=== PATIENT | male | born 1950 | race Caucasian/White ===

== ENCOUNTER 2023-06-09 14:41 | Outpatient (OUT) | payer OTHER, SELFPAY ==
--- NOTE | 2023-06-09 14:50 | XR_ITS ---
The [address] [address] Patient Name: XIMENA CAMARILLO MRN: [id number] date: 1950 Sex: M Assigned Patient Location: [facility] Current Patient Location: Accession/Order Number: [id number] Exam Date: 06/09/2023 15:00 Report Date: 06/10/2023 07:43 At the request of: RAEGAN MARCH Procedure: XR chest 2V EXAM: X-ray HISTORY: . Cough . COMPARISON: None. TECHNIQUE: Frontal and lateral chest FINDINGS: Heart and vascularity are unremarkable. There is hyperexpansion of lungs and flattening in hemidiaphragms indicating COPD. Lungs are free of focal infiltrates. No acute bony abnormality is appreciated. XR/XR chest 2V IMPRESSION: 1. Findings consistent with COPD. 2. No acute heart or lung disease identified. Electronically authenticated by: KHADIJAH DELUCA Date: 06/10/2023 07:43
== END 2023-06-09 14:42 | disposition home or self-care (01) ==
LOC: RAD 14:44
PROVIDERS: PCP Family Medicine; Visit Provider Family Medicine
DX: R05.9 Cough, unspecified (principal); J44.9 Chronic obstructive pulmonary disease, unspecified
CPT/HCPCS: 71046

== ENCOUNTER 2023-08-01 07:39 | Emergency (ER) | payer MEDICARE, SELFPAY ==
--- NOTE | 2023-08-01 07:49 | ED_ITS ---
HPI - General Adult General Chief complaint: Urogenital-Male Stated complaint: URINARY INFECTION Time Seen by Provider: 08/01/23 07:44 History of Present Illness HPI narrative: Patient is a 72-year-old male who is presenting to the ER with chief complaint of probable urinary tract infection. Yesterday patient felt chilled at home, and stated it was not cold. Patient has no abdominal pain. Patient does not have any suprapubic pressure. Patient states he has been straight cathing himself for years, he typically does it twice a day. Patient believes that he has a urinary tract infection, he has been having blood clots yesterday and today. Patient states that he can usually dribble or have some urine output, but typically straight caths himself twice a day. Patient did straight cath himself this morning, noted blood clots. Patient is in the ER today because he would like an antibiotic. Patient's urologist is Dr. Fleming, he also had some type of surgical procedure years ago at the [facility] and they guaranteed him that he would not have to straight cath himself in the future, and unfortunately that has not worked. Patient has no fever that he knew of, he did have chills yesterday. Patient has no headache, chest pain, shortness of breath, no nausea, vomiting, or any other acute complaints. All systems are negative except as noted/marked. All systems reviewed and otherwise negative. Nurses note and vital signs reviewed and patient is not hypoxic. General: The patient appears well and in no apparent distress. Patient is resting comfortably on cart. Patient is not toxic, lethargic, or listless when I walked into the room, patient sitting at the side of the bed,. Is holding a urinal trying to give a urine sample. Skin: Warm, dry, no pallor noted. There is no rash noted. No petechiae, purpura. Head: Normocephalic, atraumatic Eye: Normal conjunctiva, no drainage, EOMI. PERRL Ears, Nose, Mouth, and Throat: oral mucosa is moist. Nares patent. Mouth without vesicles. Cardiovascular: Regular Rate and Rhythm, no murmur, gallop, rub Respiratory: Patient is in no distress, no accessory muscle use, lungs are clear to auscultation, no wheezing, rales or rhonchi Back: non-tender, no CVA tenderness bilaterally to percussion. No CT LS midline pain GI: obese, no tenderness to palpation, no masses appreciated. No rebound, guarding, or rigidity noted. No distention. No flank pain bilateral, no CVA tenderness bilateral, no suprapubic tenderness to palpation. Musculoskeletal: Patient has full range of motion of all of the extremities, no motor, sensory, or focal neurological deficits Neurological: A&O x4, normal speech Psychiatric: Cooperative Related Data Home Medications Medication Instructions Recorded Confirmed atenolol 50 mg tablet 50 mg PO BID 08/01/23 08/01/23 atorvastatin 40 mg tablet 40 mg PO DAILY 08/01/23 08/01/23 famotidine 20 mg tablet 20 mg PO BID PRN GERD 08/01/23 08/01/23 furosemide 20 mg tablet 20 mg PO Q12H 08/01/23 08/01/23 imipramine HCl 50 mg tablet 50 mg PO BID 08/01/23 08/01/23 losartan 100 mg tablet (Cozaar) 100 mg PO DAILY 08/01/23 08/01/23 ropinirole 0.5 mg tablet 0.5 mg PO BID 08/01/23 08/01/23 tamsulosin 0.4 mg capsule (Flomax) 0.4 mg PO DAILY 08/01/23 08/01/23 terazosin 2 mg capsule 2 mg PO DAILY 08/01/23 08/01/23 tiotropium 2.5 mcg-olodaterol 2.5 2 inh inhalation DAILY 08/01/23 08/01/23 mcg/actuation mist for inhalation (Stiolto Respimat) Previous Rx's Medication Instructions Recorded ciprofloxacin HCl 500 mg tablet 500 mg PO Q12H 10 days #20 tabs 08/01/23 Allergies Allergy/AdvReac Type Severity Reaction Status Date / Time Iodinated Contrast Media AdvReac Mild Verified 08/01/23 07:47 niacin AdvReac Mild Verified 08/01/23 07:53 shellfish derived AdvReac Mild Verified 08/01/23 07:47 PFSH PFSH Social History Smoking status: Former smoker Exam Constitutional Vital Signs, click to edit/add: Last Vital Signs Temp 100.4 F 08/01/23 07:51 Pulse 90 08/01/23 07:51 Resp 20 08/01/23 07:51 BP 128/68 08/01/23 07:51 Pulse Ox 94 L 08/01/23 07:51 O2 Del Method Room Air 08/01/23 07:51 Course Vital Signs Vital signs: Vital Signs Temperature 100.4 F 08/01/23 07:51 Pulse Rate 90 08/01/23 07:51 Respiratory Rate 20 08/01/23 07:51 Blood Pressure 128/68 08/01/23 07:51 Pulse Oximetry 94 L 08/01/23 07:51 Oxygen Delivery Method Room Air 08/01/23 07:51 Temperature 100.4 F 08/01/23 07:51 Pulse Rate 90 08/01/23 07:51 Respiratory Rate 20 08/01/23 07:51 Blood Pressure 128/68 08/01/23 07:51 Pulse Oximetry 94 L 08/01/23 07:51 Oxygen Delivery Method Room Air 08/01/23 07:51 Medical Decision Making MDM Narrative Medical decision making narrative: Patient was able to urinate approximately 350 cc. Patient stated he has had clots yesterday and today, there is no blood clots in his urine sample today. Patient had a bladder scan after he urinated, no urine was noted on bladder scan. Patient has significant urinary tract infection, nitrates, leuk esterase, bacteria, blood. Patient is complicated UTI. Patient will be given IM injection of Rocephin secondary to complicated UTI, patient will also placed on Cipro twice a day for 10 days. Patient already has a fever, chills, giving Rocephin and Cipro hoping to prevent sepsis or any other complicated or significant infection. Patient understands the importance of significantly hydrating. No questions at discharge. Patient and agree with the plan. Lab Data Lab results reviewed: Yes I reviewed the patient's lab results Labs: Lab Results 08/01/23 Range/Units 08:10 Urine Color Lt. yellow (YELLOW) Urine Clarity Clear (CLEAR) Urine pH 5.5 (5.0-9.0) Ur Specific [place] <=1.005 A (1.005-1.025) Urine Protein 30 A (NEG/TRACE) mg/dL Urine Glucose (UA) Negative (NEGATIVE) mg/dL Urine Ketones Negative (NEGATIVE) mg/dL Urine Occult Blood Small A (NEGATIVE) Urine Nitrite Positive A (NEGATIVE) Urine Bilirubin Negative (NEGATIVE) Urine Urobilinogen 1.0 (0.2-1.0) EU/dL Ur Leukocyte Esterase Large A (NEGATIVE) Urine RBC 2-5 A (0-2) #/HPF Urine WBC >100 A (NONE SEEN) #/HPF Ur Squamous Epith Cells Few A (NONE/RARE) #/LPF Urine Bacteria Large A (NONE SEEN) #/HPF Urine Mucus None seen (NONE SEEN) Ur Culture Indicated? Already ordered Discharge Plan Discharge Chief Complaint: Urogenital-Male Clinical Impression: Complicated UTI (urinary tract infection) Patient Disposition: Home, Self-Care Time of Disposition Decision: 08:57 Condition: Fair Prescriptions / Home Meds: New ciprofloxacin HCl 500 mg tablet 500 mg PO Q12H 10 Days Qty: 20 0RF No Action famotidine 20 mg tablet 20 mg PO BID PRN (Reason: GERD) furosemide 20 mg tablet 20 mg PO Q12H atorvastatin 40 mg tablet 40 mg PO DAILY imipramine HCl 50 mg tablet 50 mg PO BID atenolol 50 mg tablet 50 mg PO BID losartan [Cozaar] 100 mg tablet 100 mg PO DAILY terazosin 2 mg capsule 2 mg PO DAILY tamsulosin [Flomax] 0.4 mg capsule 0.4 mg PO DAILY ropinirole 0.5 mg tablet 0.5 mg PO BID Stiolto Respimat 2.5-2.5 mcg/actuation mist 2 inh inhalation DAILY Instructions: Urinary Tract Infection in Men (ED) Additional Instructions: Increase fluids at home, take your first dose of antibiotic this morning when he had a prescription filled. Follow-up with Dr. Fleming for any other additional complications. Use Tylenol as needed for fever. Stand Alone Forms: Portal Instructions Referrals: RAEGAN MARCH [Primary Care Provider] - 1 week
--- OUTSIDE RECORDS SUMMARY | 2023-08-01 07:50 | XMS_ITS | CCD ---
Author Name Unknown Address [address] [place] [address] Organization [facility] Care Team Providers Care Dredge Pipe Operator Name Role Phone ORGEL, ANA PAULA K Unavailable Unavailable ORGEL, ANA PAULA K Unavailable Unavailable AMBKADE MANUELA R Unavailable Unavailable AMBKADE MANUELA R Unavailable Unavailable PHYSICIAN, DEFAULT Unavailable Unavailable PHYSICIAN, DEFAULT Unavailable Unavailable PHYSICIAN, DEFAULT Unavailable Unavailable PHYSICIAN, DEFAULT Unavailable Unavailable Nguyen Garber Attending Provider Catracho Jiménez Primary Care Provider Catracho Jiménez MD Primary Care Provider Jeremy Kelley MD Unavailable CATRACHO JIMÉNEZ Primary Care Physician TRAE ., DR CATRACHO Garcia Admitting Unavailable JIMÉNEZ ., DR CATRACHO Garcia Attending Unavailable JIMÉNEZ ., DR CATRACHO Garcia Primary Care Unavailable JIMÉNEZ ., DR CATRACHO Garcia Consulting Unavailable ROSS, RAEGAN JOSE RAUL Admitting Unavailable ROSS RAEGAN JOSE RAUL Attending Unavailable ROSS, RAEGAN JOSE RAUL Primary Care Unavailable ROSS, RAEGAN JOSE RAUL Consulting Unavailable SAMSA ., KATJA Admitting Unavailable SAMSA ., KATJA Attending Unavailable LYN, DR KHADIJAH Mejia Consulting Unavailable ROSS, RAEGAN JOSE RAUL Primary Care Unavailable SAMSA ., KATJA Consulting Unavailable JIMÉNEZ ., DR CATRACHO Garcia Primary Care Unavailable HOMER, DR ZHEN Avery Admitting Unavailable HOMER, DR ZHEN Avery Attending Unavailable HOMER, DR ZHEN Avery Consulting Unavailable SANGEETHA VEGA Consulting Unavailable JIMÉNEZ ., DR CATRACHO Garcia Admitting Unavailable JIMÉNEZ ., DR CATRACHO Garcia Attending Unavailable JIMÉNEZ ., DR CATRACHO Garcia Primary Care Unavailable JIMÉNEZ ., DR CATRACHO Garcia Consulting Unavailable JIMÉNEZ ., DR CATRACHO Garcia Admitting Unavailable JIMÉNEZ ., DR CATRACHO Garcia Attending Unavailable JIMÉNEZ ., DR CATRACHO Garcia Primary Care Unavailable JIMÉNEZ ., DR CATRACHO Garcia Consulting Raegan Tran Primary Care Physician [phone] Catracho Jiménez MD Primary Care Provider Khadijah Grove Unavailable Khadijah Grove Attending Unavailable Khadijah Grove Admitting Unavailable Raegan March Primary Care Unavailable MD Raegan March Attending Unavailable MD Raegan March Attending Unavailable MD Raegan March Attending Unavailable MD Raegan March Attending Unavailable MD Raegan March Admitting Unavailable MD Raegan March Attending Unavailable MD Raegan March Referring Unavailable MD Raegan March Admitting Unavailable MD Raegan March Attending Unavailable KELLEY Jeremy R Admitting Unavailable KELLEYPennyJeremy R Attending Unavailable MD Raegan March Admitting Unavailable MD Raegan March Attending Unavailable Aviva Bang Admitting Unavailable Aviva Bang Attending Unavailable MD Raegan March Attending Unavailable MD Raegan March Attending Unavailable MD Raegan March Attending Unavailable KELLEY, Jeremy R Attending Unavailable KELLEY, Jeremy R Attending Unavailable KELLEY, Jeremy R Attending Unavailable KELLEY, Jeremy R Attending Unavailable KELLEY, Jeremy R Attending Unavailable Sebastián, AURORA oPnce Attending Unavailable MD Raegan March Attending Unavailable MD Raegan March Attending Unavailable MD Raegan March Attending Unavailable MD Raegan March Attending Unavailable AURORA Lowery Attending Unavailable MD Raegan March Admitting Unavailable MD Raegan March Attending Unavailable MD Raegan March Admitting Unavailable MD Raegan March Attending Unavailable ARNAUD BLACK Admitting Unavailable ARNAUD BLACK Attending Unavailable MD Raegan March Admitting Unavailable MD Raegan March Attending Unavailable MD Raegan March Admitting Unavailable MD Raegan March Attending Unavailable MD Raegan March Attending Unavailable MD Raegan March Attending Unavailable Allergies Allergy Classification Reported Allergen(s) Allergy Type Date of Onset Reaction(s) Facility Niacin (1 source) Niacin Drug Allergy 1 Swelling of Lip/Tongue/Thro at [facility] Shellfish (1 source) Shellfish Food Allergy 1 Swelling of Lip/Tongue/Thro at [facility] Unclassified (14 sources) Iodinated Contrast Media; Translations: [Iodinated Contrast Media] Allergy to substance 6 Hives [facility] (12 sources) Glucosamine Drug Allergy 8 Anaphylaxis, Unknown [facility] (13 sources) Niacin Drug Allergy 6 Hives, Rash [facility] (18 sources) Shellfish; Translations: [shellfish] Drug Allergy 6 Hives, Unknown (qualifier value) [facility] (11 sources) Contrast media; Translations: [contrast media (iodine-based)] Drug allergy Unknown (qualifier value) [facility] (11 sources) Inositol; Translations: [inositol] Drug Allergy Unknown (qualifier value) [facility] (1 source) Iodine (And Iodine Containting Drugs) Drug allergy (disorder) 6 [facility] (1 source) Niacin Drug Allergy 4 [facility] (7 sources) Shellfish; Translations: [shellfish] Drug allergy (disorder) 4 Unknown (qualifier value) [facility] (1 source) Sulfonamides (Antibiotic) Drug allergy (disorder) [facility] (1 source) Niacin Drug Allergy 1 [facility] (1 source) Shellfish Drug allergy (disorder) 1 [facility] Medications Current Medications Medication Drug Class(es) Dates Sig (Normalized) Sig (Original) albuterol 0.83 mg/ml inhalation solution (12 sources) beta2-Adrenergic Agonist Start: 09-12-2022 take 2.5 mg by inhalation every four hours albuterol 0.083% Inh Mary 3 mL 2.5 mg, 3 mL, NEB, q4hr, 120 EA, Refill(s) 0, [facility], 193, cm, 08/29/22 13:11:00 EST, Height/Length Dosing, 128.8, kg, 08/29/22 13:11:00 EST, Weight Dosing Start Date: 09/12/22 Status: Ordered Start: 08-26-2022 albuterol 0.08 3% Inh Mary 3 mL Refill(s) 0 Start Date: 08/26/22 Status: Ordered Start: 12-06-2020 take 2.5 mg by inhal ation once daily Albuterol Sulfate Active 2.5 MG INHALATION Daily December 06, 2020 11:36am Start: 12-06-2020 take 90 ug by inhala tion once daily Albuterol Sulfate Active 90 MCG INHALATION Daily December 06, 2020 11:36am Albuterol (Eqv-ProAir HFA) 90 mcg/inh inhalation aerosol (10 sources) Start: 09-12-2022 take 2 puff(s) by inhalation every six hours Albuterol (Eqv-ProAir HFA) 90 mcg/inh inhalation aerosol 2 puff(s), Inhalation, q6hr, 18 gm, Refill(s) 3, [facility], 193, cm, 08/29/22 13:11:00 EST, Height/Length Dosing, 128.8, kg, 08/29/22 13:11:00 EST, Weight Dosing Start Date: 09/12/22 Status: Ordered Start: 08-26-2022 Albuterol (Eqv -ProAir HFA) 90 mcg/inh inhalation aerosol Refill(s) 0 Start Date: 08/26/22 Status: Ordered aspirin 81 mg delayed release oral tablet (17 sources) Platelet Aggregation Inhibitor, Nonsteroidal Anti-inflammatory Drug Start: 08-26-2022 aspirin 81 mg Ora l EC Tab Refills(s) 0 Start Date: 08/26/22 Status: Ordered Start: 12-06-2020 take 81 mg by mouth once daily at bedtime Aspirin Active 81 MG PO Daily at bedtime December 06, 2020 11:36am aspirin 81 mg ca p Take 81 mg by mouth. 0 Active Comment on above: Take 81 mg by mouth. atenolol 50 mg oral tablet (20 sources) beta-Adrenergic Chapis Start: 12-06-2020 take 1 tablet by mouth twice daily atenolol 50 mg Tab 50 mg = 1 tab(s), Oral, BID, # 180 tab(s), Refills(s) 3, Pharmacy: [facility], 193, cm, 08/29/22 13:11:00 EST, Height/Length Dosing, 128.8, kg, 08/29/22 13:11:00 EST, Weight Dosing Start Date: 09/12/22 Status: Ordered Start: 08-31-2019 take 1 tablet by tomy th once daily atenolol 50 mg Tab 50 mg = 1 tab(s), Oral, Daily, # 30 tab(s), Refills(s) 0 Start Date: 08/31/19 Status: Ordered Start: 10-23-2018 End: 10-23-2021 ATENOLOL ORAL 5 mg. 0 201810/23/2021 Discontinued (Changing Therapy/Dosage Form) Start: 10-23-2018 ATENOLOL ORAL 5 mg. 0 10/23/2018 Active Comment on above: 5 mg. Take 50 mg by mouth once daily. atorvastatin 40 mg oral tablet (20 sources) HMG-CoA Reductase Inhibitor Start: 08-31-19 take 1 tablet by mouth once daily atorvastatin 40 mg Tab 40 mg = 1 tab(s), Oral, Daily, # 90 tab(s), Refills(s) 3, Pharmacy: [facility], 193, cm, 08/29/22 13:11:00 EST, Height/Length Dosing, 128.8, kg, 08/29/22 13:11:00 EST, Weight Dosing Start Date: 09/12/22 Status: Ordered Comment on above: once daily. azithromycin 250 mg Tab 5-day Dose Pack (Z-Raimundo) (1 source) Start: 06-09-20 End: 06-14-20 azithromycin 250 mg Tab 5-day Dose Pack (Z-Raimundo) = 1 packet(s), Oral, As Directed, as directed on package labeling, X 5 day(s), # 6 tab(s), Refills(s) 0, Pharmacy: [facility]/pharmacy #[id number], 188, cm, 06/09/23 13:56:00 EST, Height/Length Dosing, 127.9, kg, 03/17/23 11:18:00 EDT, Weight Dosing Start Date: 06/09/23 Stop Date: 06/14/23 Status: Ordered benzonatate 200 mg oral capsule (1 source) Non-narcotic Antitussive Start: 06-09-20 End: 06-16-20 take 1 capsule by mouth three times daily benzonatate 200 mg oral capsule 200 mg = 1 cap(s), Oral, TID, X 7 day(s), # 21 cap(s), Refills(s) 0, Pharmacy: [facility]/pharmacy #[id number], 188, cm, 06/09/23 13:56:00 EST, Height/Length Dosing, 127.9, kg, 03/17/23 11:18:00 EDT, Weight Dosing Start Date: 06/09/23 Stop Date: 06/16/23 Status: Ordered cephalexin 500 mg oral capsule (10 sources) Cephalosporin Antibacterial Start: 06-25-19 take 1 capsule by mouth every twelve hours Keflex 500 mg Cap 500 mg = 1 cap(s), Oral, q12hr, # 20 cap(s), Refills(s) 0, [id number] 188, cm, 06/09/23 13:56:00 EST, Height/Length Dosing, 127.9, kg, 03/17/23 11:18:00 EDT, Weight Dosing Start Date: 06/25/23 Status: Ordered Start: 04-19-2021 End: 10-23-2021 take 1 capsule by mouth once daily cephALEXin (KEFLEX) 250 mg capsule Take 1 capsule by mouth once daily. Start these after 1st prescription completed 90 capsule 1 04/19/2021 10/23/2021 Discontinued Start: 04-19-2021 End: 10-23-2021 take 1 capsule by mouth three times daily cephALEXin (KEFLEX) 500 mg capsule Take 1 capsule by mouth three times daily. Take these pills first 21 capsule 0 04/19/2021 10/23/2021 Discontinued Comment on above: Take 1 capsule by [facility] three times daily. Take these pills first Take 1 capsule by [facility] once daily. Start these after 1st prescription completed cholecalciferol 0.025 mg oral tablet (1 source) Vitamin D Start : 12-06 take 1 tablet by mouth once daily in the morning Cholecalciferol (Vitamin D3) (Vitamin D3) 25 mcg (1,000 unit) Tablet Active 50 MCG PO Every morning December 06, 2020 11:36am docusate sodium 100 mg oral capsule (3 sources) Start : 12-21 End: 01-20 take 1 capsule by mouth twice daily docusate sodium (COLACE) 100 mg capsule Take 1 capsule by mouth twice daily. 60 capsule 0 12/21/2021 01/20/2022 Active Comment on above: Take 1 capsule by mo [facility] twice daily. famotidine 20 mg oral tablet (13 sources) Histamine-2 Receptor Antagonist Start : 04-17 take 1 tablet by mouth twice daily as needed for gastroesophageal reflux disease famotidine 20 mg Tab See Instructions, TAKE 1 TABLET BY MOUTH TWICE A DAY NEEDED FOR GERD SYMPTOMS, # 180 tab(s), Refills(s) 1, Pharmacy: [id number], 188, cm, 03/17/23 11:18:00 EDT, Height/Length Dosing, 127.9, kg, 03/17/23 11:18:00 EDT, Weight Dosing Start Date: 04/17/23 Status: Ordered Start: 03-17-2023 End: 10-23-2021 take 1 tablet by mouth twice daily as needed for gastroesophageal reflux disease Pepcid 20 mg Tab 20 mg = 1 tab(s), Oral, BID, PRN for GERD symptoms, # 60 tab(s), Refills(s) 0, Pharmacy: [facility]/pharmacy #[id number], 188, cm, 03/17/23 11:18:00 EDT, Height/Length Dosing, 127.9, kg, 03/17/23 11:18:00 EDT, Weight Dosing Start Date: 03/17/23 Status: Ordered Start: 08-26-2022 take 1 tablet by mouth once da jag famotidine 20 mg Tab 20 mg = 1 tab(s), Oral, Daily, # 90, Refills(s) 0 Start Date: 08/26/22 Status: Ordered Start: 12-06-2020 take 20 mg by mouth once daily in the morning Famotidine Active 20 MG PO Every morning December 06, 2020 11:36am Comment on above: Take 20 mg by mouth twice daily. Fish Oils (10 sources) Start: 08-26-2022 Fish Oil 1000 mg oral capsule Refills(s) 0 Start Date: 08/26/22 Status: Ordered Flonase 50 MCG/DOSE (1 source) take 1 spray(s) nasal route once daily Flonase 50 MCG/DOSE 1 spray in each nostril Nasally Once a day Active furosemide 20 mg oral tablet (20 sources) Loop Diuretic Start: 01-29-2016 take 1 tablet by mouth twice daily furosemide 20 mg Tab 20 mg = 1 tab(s), Oral, BID, # 180 tab(s), Refills(s) 3, Pharmacy: [facility], 193, cm, 08/29/22 13:11:00 EST, Height/Length Dosing, 128.8, kg, 08/29/22 13:11:00 EST, Weight Dosing Start Date: 09/12/22 Status: Ordered Start: 01-29-2016 furosemide (LA SIX) 20 mg tablet Comment on above: Take by mouth twice daily. glipiZIDE er 2.5 mg 24 hr extended release oral tablet (20 sources) Sulfonylurea Start: take 1 tablet by mouth once daily glipiZIDE 2.5 mg ER Tab 2.5 mg = 1 tab(s), Oral, Daily, # 180 tab(s), Refills(s) 3, Pharmacy: [facility], 188, cm, 06/09/23 13:56:00 EST, Height/Length Dosing, 127.9, kg, 03/17/23 11:18:00 EDT, Weight Dosing Start Date: 06/30/23 Status: Ordered Start: 08-26-2022 take 1 tablet by tomy th once daily glipiZIDE 2.5 mg ER Tab 2.5 mg = 1 tab(s), Oral, Daily, # 180 tab(s), Refills(s) 3, Pharmacy: [facility], 193, cm, 08/29/22 13:11:00 EST, Height/Length Dosing, 128.8, kg, 08/29/22 13:11:00 EST, Weight Dosing Start Date: 09/12/22 Status: Ordered End: 10-23-2021 GLIPIZIDE ORAL Take by mouth . 0 10/23/2021 Discontinued (Duplicate Entry) GLIPIZIDE ORAL T felipa by mouth. 0 Active Comment on above: Take by mouth. Take 2.5 mg by mouth once daily. ibuprofen 200 mg oral tablet (10 sources) Nonsteroidal Anti-inflammatory Drug Start: 08-27-19 ibuprofen 200 mg Tab Refills(s) 0 Start Date: 08/26/22 Status: Ordered imipramine hydrochloride 50 mg oral tablet (20 sources) Tricyclic Antidepressant Start: 04-28-20 23 take 1 tablet by mouth twice daily imipramine 50 mg oral tablet 50 mg = 1 tab(s), Oral, BID, # 180 tab(s), Refills(s) 1, Pharmacy: [facility]/pharmacy #[id number], 188, cm, 03/17/23 11:18:00 EDT, Height/Length Dosing, 127.9, kg, 03/17/23 11:18:00 EDT, Weight Dosing Start Date: 04/28/23 Status: Ordered Start: 08-31-2019 take 1 mg by mouth t hree times daily imipramine 50 mg oral tablet mg tab(s), Oral, TID, Refills(s) 0 Start Date: 08/31/19 Status: Ordered Start: 03-04-2016 take 1 tablet by tomy twice daily imipramine 50 mg oral tablet 50 mg = 1 tab(s), Oral, BID, # 270 tab(s), Refills(s) 3, Pharmacy: [facility], 193, cm, 08/29/22 13:11:00 EST, Height/Length Dosing, 128.8, kg, 08/29/22 13:11:00 EST, Weight Dosing Start Date: 09/12/22 Status: Ordered take 2 tablets by mo [facility] every twenty-four hours Imipramine HCl 50 MG 2 tablets at bedtime Orally Once a day Active Comment on above: Take by mouth twice daily. irbesartan 75 mg oral tablet (11 sources) Angiotensin 2 Receptor Chapis Start: take 1 tablet by mouth once daily irbesartan 75 mg Tab 75 mg = 1 tab(s), Oral, Daily, # 90 tab(s), Refills(s) 3, Pharmacy: [facility], 188, cm, 06/09/23 13:56:00 EST, Height/Length Dosing, 127.9, kg, 03/17/23 11:18:00 EDT, Weight Dosing Start Date: 06/30/23 Status: Ordered Start: 08-26-2022 take 1 tablet by tomy once daily irbesartan 75 mg Tab 75 mg = 1 tab(s), Oral, Daily, # 90 tab(s), Refills(s) 3, Pharmacy: [facility], 193, cm, 08/29/22 13:11:00 EST, Height/Length Dosing, 128.8, kg, 08/29/22 13:11:00 EST, Weight Dosing Start Date: 09/12/22 Status: Ordered losartan potassium 100 mg oral tablet (13 sources) Angiotensin 2 Receptor Chapis Start: 12-06-2020 take 100 mg by mouth once daily Losartan Active 100 MG PO Daily December 06, 2020 11:36am Start: 10-23-2018 losartan (COZA AR) 100 mg tablet 50 mg daily at bedtime. 0 10/23/2018 Active Comment on above: 50 mg. 50 mg daily at bedti me. metFORMIN hydrochloride 500 mg oral tablet (20 sources) Biguanide Start: 4 take 1 tablet by mouth twice daily metformin 500 mg Tab 500 mg = 1 tab(s), Oral, BID, # 180 tab(s), Refills(s) 3, Pharmacy: [facility], 188, cm, 06/09/23 13:56:00 EST, Height/Length Dosing, 127.9, kg, 03/17/23 11:18:00 EDT, Weight Dosing Start Date: 06/30/23 Status: Ordered Start: 08-26-2022 take 1 tablet by tomy th twice daily metformin 500 mg Tab 500 mg = 1 tab(s), Oral, BID, # 180 tab(s), Refills(s) 3, Pharmacy: [facility], 193, cm, 08/29/22 13:11:00 EST, Height/Length Dosing, 128.8, kg, 08/29/22 13:11:00 EST, Weight Dosing Start Date: 09/12/22 Status: Ordered metformin HCl (M ETFORMIN ORAL) Take by mouth. 0 Active Comment on above: Take by mouth. Take 500 mg by mouth twice daily. methylPREDNISolone 4 mg oral tablet (1 source) Corticosteroid Start: 023 End: 023 Medrol Dosepack 4 mg Tab = 1 packet(s), Oral, As Directed, as directed on package labeling, X 6 day(s), # 21 tab(s), Refills(s) 0, Pharmacy: [facility]/pharmacy #[id number], 188, cm, 06/09/23 13:56:00 EST, Height/Length Dosing, 127.9, kg, 03/17/23 11:18:00 EDT, Weight Dosing Start Date: 06/09/23 Stop Date: 06/15/23 Status: Ordered nitroglycerin 0.4 mg sublingual tablet (1 source) Nitrate Vasodilator Start: 021 take 0.4 mg under the tongue once daily Nitroglycerin Active 0.4 MG SUBLINGUAL Daily December 06, 2020 11:36am 60 actuat olodaterol 0.0025 mg/actuat / tiotropium 0.0025 mg/actuat inhalation spray (20 sources) Anticholinergic, beta2-Adrenergic Agonist Start: 023 Stiolto Respimat 2.5 mcg-2.5 mcg inhalation aerosol = 2 puff(s), Inhalation, q24hr, # 4 gm, Refills(s) 3, Pharmacy: [facility], 193, cm, 08/29/22 13:11:00 EST, Height/Length Dosing, 128.8, kg, 08/29/22 13:11:00 EST, Weight Dosing Start Date: 09/12/22 Status: Ordered Start: 02-19-2021 Stiolto Respim at 2.5 mcg-2.5 mcg inhalation aerosol puff(s), Inhalation, q24hr, Refills(s) 0 Start Date: 02/19/21 Status: Ordered Start: 12-06-2020 Tiotropium-Olo daterol (Stiolto Respimat) 2.5-2.5 mcg/actuation mist Active 2 INH INHALATION Every morning December 06, 2020 11:36am Stiolto Respimat 2.5-2.5 MCG/ACT Inhalation for 90 Days Active tiotropium-oloda terol (STIOLTO RESPIMAT) 2.5-2.5 mcg/actuation Inhale 2 Puffs as instructed once daily. 0 Active Comment on above: Inhale 2 Puffs as in structed once daily. [place] 6-Hpn-Zke-Fish Oil (Fish Oil) 1,000 mg (120 mg-180 mg) Capsule (1 source) Start: 1 take 2 capsules by mouth once daily in the morning [place] 3-Unh-Vdz-Fish Oil (Fish Oil) 1,000 mg (120 mg-180 mg) Capsule Active 2 CAP PO Every morning December 06, 2020 11:36am rOPINIRole 0.5 mg oral tablet (20 sources) Nonergot Dopamine Agonist Start: 6 take 1 tablet by mouth twice daily ropinirole 0.5 mg Tab 0.5 mg = 1 tab(s), Oral, BID, # 180 tab(s), Refills(s) 3, Pharmacy: [facility], 193, cm, 08/29/22 13:11:00 EST, Height/Length Dosing, 128.8, kg, 08/29/22 13:11:00 EST, Weight Dosing Start Date: 09/12/22 Status: Ordered Start: 08-29-2015 rOPINIRole (RE QUIP) 0.5 mg tablet Comment on above: Take 0.5 mg by mouth twice daily. spironolactone 25 mg oral tablet (2 sources) Aldosterone Antagonist Start: 12-07-19 21 take 25 mg by mouth once daily Spironolactone Active 25 MG PO Daily December 06, 2020 11:36am take 1 tablet by mouth every twe lve hours tamsulosin hydrochloride 0.4 mg oral capsule (18 sources) alpha-Adrenergic Chapis Start: 09-12-2022 take 1 capsule by mouth once daily tamsulosin 0.4 mg Cap 0.4 mg = 1 cap(s), Oral, Daily, # 90 cap(s), Refills(s) 3, Pharmacy: [facility], 193, cm, 08/29/22 13:11:00 EST, Height/Length Dosing, 128.8, kg, 08/29/22 13:11:00 EST, Weight Dosing Start Date: 09/12/22 Status: Ordered Start: 04-02-2016 End: 12-12-2021 take 1 mg by mouth once daily tamsulosin 0.4 mg Cap mg cap(s), Oral, Daily, Refills(s) 0 Start Date: 02/19/21 Status: Ordered Start: 04-02-2016 tamsulosin ER (FLOMAX) 0.4 mg cp24 Indications: Prostate cancer (HCC) twice daily. 0 04/02/2016 Active Comment on above: twice daily. Take by mouth once d aily. terazosin 2 mg oral capsule (20 sources) alpha-Adrenergic Chapis Start: 03-11-2016 take 1 capsule by mouth once daily at bedtime terazosin 2 mg Cap 2 mg = 1 cap(s), Oral, Once a day (at bedtime), # 90 cap(s), Refills(s) 3, Pharmacy: [facility], 193, cm, 08/29/22 13:11:00 EST, Height/Length Dosing, 128.8, kg, 08/29/22 13:11:00 EST, Weight Dosing Start Date: 09/12/22 Status: Ordered Comment on above: Take by mouth daily at bedtime. Vitamin D3 (1 source) Start: 08-31-2019 Vitamin D3 Refills(s) 0 Start Date: 08/31/19 Status: Ordered Vitamin D3 2000 intl units (10 sources) Start: 08-26-2022 Vitamin D3 2000 intl units Refills(s) 0 Start Date: 08/26/22 Status: Ordered Completed/Discontinued Medications Medication Drug Class(es) Dates Sig (Normalized) Sig (Original) acetaminophen 325 mg oral tablet (3 sources) Start: 12-21-2021 take 2 tablets by mouth every six hours as needed acetaminophen (TYLENOL) 325 mg tablet Take 2 tablets by mouth every 6 hours as needed for pain. 0 12/21/2021 Active Comment on above: Take 2 tablets by mo [facility] every 6 hours as needed for pain. amoxicillin 500 mg / clavulanate 125 mg oral tablet (2 sources) Penicillin-class Antibacterial Start: 10-23-2021 End: 12-12-2021 take 1 tablet by mouth twice daily amoxicillin-clavul anic acid (AUGMENTIN) 500-125 mg per tablet Take 1 tablet by mouth twice daily. 0 10/23/2021 12/12/2021 Discontinued (Course of therapy completed) Comment on above: [facility]. cholecalciferol, vitamin D3, (D3-2000 ORAL) (12 sources) cholecalciferol, vitamin D3, (D3-2000 ORAL) Take by mouth once daily. 0 Active cholecalciferol, vitamin D3, (D3-2000 ORAL) Take by mouth. 0 Active Comment on above: Take by mouth. Take by mouth once d aily. ciprofloxacin 500 mg oral tablet (2 sources) Quinolone Antimicrobial Start: 01-03-20 End: 01-10-20 take 0.5 tablet by mouth twice daily ciprofloxacin HCl (CIPRO) 500 mg tablet Take 0.5 tablets by mouth twice daily for 7 days. 7 tablet 0 01/02/2022 01/09/2022 Start: 10-03-2021 End: 10-03-2021 ciprofloxacin HCl 500 mg tab (s) (CIPRO) Comment on above: Take 0.5 tablets by mouth twice daily for 7 days. diphenhydrAMINE hydrochloride 50 mg oral capsule (3 sources) Histamine-1 Receptor Antagonist Start: End: take 1 capsule by mouth every hour diphenhydrAMINE (BENADRYL) 50 mg capsule Take 1 capsule by mouth as directed for 1 dose. one (1) hour prior to exam. 1 capsule 0 04/06/2021 10/23/2021 Discontinued (Course of therapy completed) Comment on above: Take 1 capsule by [facility] as directed for 1 dose. one (1) hour prior to exam. doxycycline hyclate 100 mg oral capsule (3 sources) Tetracycline-class Drug Start: End: take 1 capsule by mouth twice daily doxycycline hyclate (VIBRAMYCIN) 100 mg capsule Take 1 capsule by mouth twice daily. 10 capsule 0 10/25/2021 12/12/2021 Discontinued (Course of therapy completed) Comment on above: Take 1 capsule by [facility] twice daily. ezetimibe 10 mg oral tablet (4 sources) Dietary Cholesterol Absorption Inhibitor Start: End: ZETIA 10 mg tablet fluticasone propionate 0.05 mg/actuat metered dose nasal spray (12 sources) Corticosteroid take 1 spray(s) nasal route once daily fluticasone (FLONASE) 50 mcg/actuation nasal spray Indications: Prostate cancer (HCC) Use 1 Gilsum in each nostril once daily. 0 Active Comment on above: Use 1 Gilsum in each nostril once daily. lisinopril 20 mg oral tablet (3 sources) Angiotensin Converting Enzyme Inhibitor Start: End: lisinopril (ZESTRIL, PRINIVIL) 20 mg tablet [place]-3 Fatty Acids, FISH OIL, (FISH OIL) 360-1,200 mg cap (12 sources) [place]-3 Fatty Ac ids, FISH OIL, (FISH OIL) 360-1,200 mg cap Take 1 capsule by mouth. 0 Active Comment on above: Take 1 capsule by mo [facility]. oxybutynin chloride 5 mg oral tablet (3 sources) Cholinergic Muscarinic Antagonist Start: End: take 1 tablet by mouth every eight hours as needed oxybutynin (DITROPAN) 5 mg tablet Take 1 tablet by mouth three times daily as needed (Bladder spasms). Do not take within 24 hours of catheter removal 9 tablet 0 12/21/2021 01/09/2022 Discontinued (Course of therapy completed) Comment on above: Take 1 tablet by tomy three times daily as needed (Bladder spasms). Do not take within 24 hours of catheter removal OXYGEN, HOME THERAPY, (9 sources) OXYGEN, HOME THE RAPY, by Nasal Cannula route as directed. at bedtime 2.5 L/min 0 Active Comment on above: by Nasal Cannula rou te as directed. at bedtime 2.5 L/min Problems Active Problems Problem Classification Problem Date Documented Date Episodic/Chronic Abdominal pain (2 sources) Abdominal pain; Translations: [Unspecified abdominal pain] Onset: 12-09-2022 Episodic Cancer of prostate (12 sources) Malignant tumor of prostate; Translations: [Malignant neoplasm of prostate] Onset: 05-23-2016 05-23-2016 Chronic Cancer of prostate (20 sources) History of malignant neoplasm of prostate; Translations: [Personal history of malignant neoplasm of prostate] Onset: 04-30-2021 04-30-2021 Episodic Chronic obstructive pulmonary disease and bronchiectasis (20 sources) Chronic obstructive lung disease; Translations: [Chronic obstructive pulmonary disease, unspecified] Onset: 09-13-2022 Chronic Conditions associated with dizziness or vertigo (2 sources) Benign paroxysmal positional vertigo 08-29-2022 Episodic Diabetes mellitus without complication (20 sources) Diabetes mellitus; Translations: [Type 2 diabetes mellitus without complications] Onset: 10-01-2021 04-30-2021 Chronic Disorders of lipid metabolism (20 sources) Hypercholesterolemia; Translations: [Pure hypercholesterolemia, unspecified] Onset: 01-02-2022 Chronic Esophageal disorders (8 sources) Gastro-esophageal reflux disease without esophagitis; Translations: [Gastroesophageal reflux disease] Onset: 01-02-2022 03-17-2023 Chronic Essential hypertension (20 sources) Hypertensive disorder; Translations: [Essential (primary) hypertension] Onset: 01-02-2022 Chronic Genitourinary symptoms and ill-defined conditions (10 sources) Urinary catheter in situ 08-26-2022 Chronic Genitourinary symptoms and ill-defined conditions (20 sources) Retention of urine; Translations: [Retention of urine, unspecified] Onset: 04-30-2021 Episodic Hyperplasia of prostate (19 sources) Benign prostatic hypertrophy with outflow obstruction; Translations: [Benign prostatic hyperplasia with lower urinary tract symptoms] Onset: 01-02-2022 Chronic Inflammatory conditions of male genital organs (12 sources) Chronic prostatitis; Translations: [Chronic prostatitis] Onset: 12-09-2022 09-06-2019 Chronic Mood disorders (1 source) Major depressive disorder, single episode, unspecified; Translations: [AMBER DEPRESS D/O SINGLE EPIS UNS] Onset: 01-02-2022 Chronic Osteoarthritis (10 sources) Arthritis 08-31-2019 Chronic Other diseases of kidney and ureters (20 sources) Renal mass; Translations: [Other specified disorders of kidney and ureter] Onset: 03-23-2021 03-23-2021 Chronic Other diseases of kidney and ureters (1 source) Disorder of kidney and/or ureter; Translations: [Other specified disorders of kidney and ureter] 04-13-2021 Chronic Other diseases of veins and lymphatics (10 sources) Varicocele 05-23-2021 Episodic Other hereditary and degenerative nervous system conditions (1 source) Restless legs syndrome; Translations: [RESTLESS LEGS SYNDROME] Onset: 01-02-2022 Chronic Other lower respiratory disease (2 sources) Cough 10-15-2022 Episodic Other lower respiratory disease (2 sources) Dyspnea 10-15-2022 Episodic Other lower respiratory disease (1 source) Snoring Episodic Other male genital disorders (10 sources) Impotence 09-06-2019 Chronic Other male genital disorders (10 sources) Swelling of scrotum 05-23-2021 Episodic Other nutritional; endocrine; and metabolic disorders (11 sources) Obese class I; Translations: [Obesity, unspecified] Chronic Other nutritional; endocrine; and metabolic disorders (4 sources) Body mass index 30+ - obesity; Translations: [Body mass index (BMI) 37.0-37.9, adult] 08-26-2022 Chronic Other nutritional; endocrine; and metabolic disorders (1 source) Body mass index (BMI) 37.0-37.9, adult Chronic Other nutritional; endocrine; and metabolic disorders (1 source) Obesity; Translations: [Other obesity due to excess calories] Onset: 06-09-2023 Chronic Other nutritional; endocrine; and metabolic disorders (1 source) Obese class II; Translations: [Body mass index (BMI) 36.0-36.9, adult] Onset: 06-09-2023 Chronic Other screening for suspected conditions (not mental disorders or infectious disease) (2 sources) Patient encounter status; Translations: [Encounter for screening for other disorder] Onset: 08-27-2022 Episodic Other upper respiratory infections (5 sources) Acute upper respiratory infection 06-09-2023 Episodic Residual codes; unclassified (1 source) Sleep apnea; Translations: [Sleep apnea, unspecified] Chronic Residual codes; unclassified (1 source) Obstructive sleep apnea syndrome; Translations: [Obstructive sleep apnea (adult) (pediatric)] Chronic Residual codes; unclassified (1 source) Hypoxia; Translations: [Idiopathic sleep related nonobstructive alveolar hypoventilation] Chronic Residual codes; unclassified (1 source) Idiopathic sleep related nonobstructive alveolar hypoventilation Chronic Residual codes; unclassified (2 sources) Sleep apnea, unspecified; Translations: [Sleep apnea, unspecified] Onset: 05-06-2023 Chronic Residual codes; unclassified (11 sources) Swelling; Translations: [Edema, unspecified] Episodic Respiratory failure; insufficiency; arrest (adult) (11 sources) Dependence on supplemental oxygen; Translations: [Dependence on supplemental oxygen] Chronic Screening and history of mental health and substance abuse codes (20 sources) Ex-smoker; Translations: [Personal history of nicotine dependence] Onset: 08-05-2022 Episodic Spondylosis; intervertebral disc disorders; other back problems (20 sources) Chronic back pain ; Translations: [Dorsalgia, unspecified] Onset: 04-30-2021 04-30-2021 Episodic Unclassified (1 source) MACULAR HOLE LEFT E YE / MACULAR HOLE LEFT E YE() Onset: 10-16-2017 Unclassified (10 sources) Non-smoker 08-26-2022 Unclassified (3 sources) CHRN KIDNEY DISEASE STG 3 UNSP; Translations: [CHRN KIDNEY DISEASE STG 3 UNSP] Onset: 01-22-2022 Unclassified (1 source) CONTACT W/AND (SUSP) EXPOS COVID-19; Translations: [CONTACT W/AND (SUSP) EXPOS COVID-19] Onset: 01-02-2022 Urinary tract infections (20 sources) Recurrent urinary tract infection; Translations: [Urinary tract infection, site not specified] Onset: 04-30-2021 04-30-2021 Episodic Past or Other Problems Problem Classification Problem Date Documented Date Episodic/Chronic Fever of unknown origin (1 source) Fever, unspecified; Translations: [FEVER UNSPECIFIED] Onset: 01-02-2022 Episodic Other aftercare (1 source) Other intermediate manager (current) drug therapy; Translations: [OTH AMBULATORY NURSE CURRENT DRUG THERAPY] Onset: 01-02-2022 Episodic Residual codes; unclassified (1 source) Other specified postprocedural states; Translations: [OTH SPECIFIED POSTPROCEDURAL STATES] Onset: 01-02-2022 Episodic Unclassified (1 source) MACULAR HOLE LEFT E YE; Translations: [MACULAR HOLE LEFT E YE] Onset: 10-16-2017 Unclassified (1 source) CHRN KIDNEY DISEASE STG 3 UNSP; Translations: [CHRN KIDNEY DISEASE STG 3 UNSP] Onset: 01-16-2022 Results Test Name Value Interpretation Reference Range Facil ity C Urineon 07-12-2023 Bacteria identified Cx Nom (U) Microbiology PROCEDURE: Urine Culture [R1] SOURCE: U CleanCatch BODY SITE: COLLECTED DATE/TIME: 07/10/2023 12:36 EST RECEIVED DATE/TIME: 07/10/2023 17:58 EST START DATE/TIME: 07/10/2023 17:58 EST FREE TEXT SOURCE: ARNAUD BLACK PA-C, PA-C, ARNAUD Garcia FINAL REPORTS Final Report [] Verified Date/Time: 07/12/2023 10:25 EST >100,000 cfu/ml Streptococcus agalactiae (Group B) Presumptive isolated. Penicillin is the drug of choice for Beta Hemolytic Streptococci Isolates. Routine susceptibility testing on Beta Hemolytic Streptococcus isolates is no longer performed. Susceptibilities will continue to be performed on Isolates from sterile body fluids and serious wound infections. 1,000 cfu/ml Mixed skin contaminants Performing Locations R1: This test was performed at: [facility], [address] [place] [address], [id number] , , Normal [facility] Comment on above: Performed By: #### 1 [id number] #### [facility] [address] [place] [id number] Ambulatory Visit Summaryon 0 07-10-2023 Ambulatory Visit Summary MILAN CAMARILLO :1950 Visit Date:07/10/2023 Ambulatory Visit Instructions Your Care Team Attending Physician - ALLIE CHOPRA, Jeremy Avery Primary Care Physician - Erasmo CHOPRA, Raegan Adler This Is Your Medications List albuterol (Albuterol (Eqv-ProAir HFA) 90 mcg/inh inhalation aerosol) albuterol (albuterol 0.083% Inh Mary 3 mL) aspirin (aspirin 81 mg Oral EC Tab) atenolol (atenolol 50 mg Tab) atorvastatin (atorvastatin 40 mg Tab) cephalexin (Keflex 500 mg Cap) cholecalciferol (Vitamin D3 2000 intl units) famotidine (famotidine 20 mg Tab) furosemide (furosemide 20 mg Tab) glipiZIDE (glipiZIDE 2.5 mg ER Tab) ibuprofen (ibuprofen 200 mg Tab) imipramine (imipramine 50 mg oral tablet) irbesartan (irbesartan 75 mg Tab) metformin (metformin 500 mg Tab) olodaterol-tiotropium (Stiolto Respimat 2.5 mcg-2.5 mcg inhalation aerosol) omega-3 polyunsaturated fatty acids (Fish Oil 1000 mg oral capsule) ropinirole (ropinirole 0.5 mg Tab) tamsulosin (tamsulosin 0.4 mg Cap) terazosin (terazosin 2 mg Cap) Procedures Performed TURP - Transurethral resection of prostate (12/21/2021), Colonoscopy (01/10/2021), EGD - Esophagogastroduodenos copy (01/10/2021), Cystourethroscopy with dilation of urethral stricture (05/07/2017), Brachytherapy (09/19/2016), TURP - Transurethral resection of prostate (04/11/2016), Cystoscopy (04/02/2016), Transrectal biopsy of prostate using ultrasound (US) guidance (07/04/2015), Appendectomy, External beam radiotherapy, Procedure on back. What to do next Scheduled Follow-Up Appointments Friday 9:15 AM EDT With: ALLIE CHOPRA, Jeremy Avery Where: [facility] [address] \.br\ Medications\.br\ What How Much When Instructions\.br\ Unchanged albuterol (Albuterol (Eqv-ProAir HFA) 90 mcg/ inh inhalation aerosol) 2 Puffs Inhalation Every 6 hours\.br\ Unchanged albuterol (albuterol 0.083% Inh Mary 3 mL) 3 Milliliter Nebulized inhalation (aerosol) Every 4 hours\.br\ Unchanged aspirin (aspirin 81 mg Oral EC Tab)\.br\ Unchanged atenolol (atenolol 50 mg Tab) 1 Tablets By Mouth 2 times a day\.br\ Unchanged atorvastatin (atorvastatin 40 mg Tab) 1 Tablets By Mouth Every day\.br\ Unchanged cephalexin (Keflex 500 mg Cap) 1 Capsules By Mouth Every 12 hours\.br\ Unchanged cholecalciferol (Vitamin D3 2000 intl units)\.br\ Unchanged famotidine (famotidine 20 mg Tab) See instructions TAKE 1 TABLET BY MOUTH TWICE A DAY NEEDED FOR GERD SYMPTOMS \.br\ Unchanged furosemide (furosemide 20 mg Tab) 1 Tablets By Mouth 2 times a day\.br\ Unchanged glipiZIDE (glipiZIDE 2.5 mg ER Tab) 1 Tablets By Mouth Every day\.br\ Unchanged ibuprofen (ibuprofen 200 mg Tab)\.br\ Unchanged imipramine (imipramine 50 mg oral tablet) 1 Tablets By Mouth 2 times a day\.br\ Unchanged irbesartan (irbesartan 75 mg Tab) 1 Tablets By Mouth Every day\.br\ Unchanged metformin (metformin 500 mg Tab) 1 Tablets By Mouth 2 times a day\.br\ Unchanged olodaterol-tiotropi um (Stiolto Respimat 2.5 mcg-2.5 mcg inhalation aerosol) 2 Puffs Inhalation Every 24 hours\.br\ Unchanged omega-3 polyunsaturated fatty acids (Fish Oil 1000 mg oral capsule)\.br\ Unchanged ropinirole (ropinirole 0.5 mg Tab) 1 Tablets By Mouth 2 times a day\.br\ Unchanged tamsulosin (tamsulosin 0.4 mg Cap) 1 Capsules By Mouth Every day\.br\ Unchanged terazosin (terazosin 2 mg Cap) 1 Capsules By Mouth Once a day (at bedtime)\.br\ Allergies\.br\ contrast media (iodine-based) (Unknown)\.br\ inositol (Unknown)\.br\ shellfish (Unknown)\.br\ Problems\.br\ Ongoing - Any problem that you are currently receiving treatment for.\.br\ Acute URI\.br\ Arthritis\.br\ Back pain\.br\ BPH with urinary obstruction\.br\ Chronic prostatitis\.br\ COPD without exacerbation\.br\ Former smoker\.br\ GERD (gastroesophageal reflux disease)\.br\ Gross hematuria\.br\ History of prostate cancer\.br\ History of pyelonephritis\.br\ HLD (hyperlipidemia)\.b r\ Hyperlipidemia\.br\ Hypertension\.br\ Impotence\.br\ Incomplete bladder emptying\.br\ Intermittent self-catheterizatio n of bladder\.br\ Left varicocele\.br\ Non-smoker\.br\ Renal mass\.br\ Scrotal swelling\.br\ Type 2 diabetes mellitus without complication, without long-term current use of insulin\.br\ Patient Survey\.br\ You may receive a survey via text or e-mail asking about your office visit. Please share your experience with us by completing your survey. We appreciate your feedback and thank you for choosing us for your care.\.br\ \.br\ [facility] C Urineon 06-27-2023 Bacteria identified Cx Nom (U) Microbiology PROCEDURE: Urine Culture [R1] SOURCE: U CleanCatch BODY SITE: COLLECTED DATE/TIME: 06/25/2023 11:32 EST RECEIVED DATE/TIME: 06/25/2023 18:44 EST START DATE/TIME: 06/25/2023 18:44 EST FREE TEXT SOURCE: Merritt CHOPRA, Aviva Bang MD, Aviva Gilliam FINAL REPORTS Final Report [] Verified Date/Time: 06/27/2023 09:48 EST >100,000 cfu/ml Streptococcus agalactiae (Group B) Presumptive isolated. Penicillin is the drug of choice for Beta Hemolytic Streptococci Isolates. Routine susceptibility testing on Beta Hemolytic Streptococcus isolates is no longer performed. Susceptibilities will continue to be performed on Isolates from sterile body fluids and serious wound infections. 3,000 cfu/ml Mixed skin contaminants Performing Locations R1: This test was performed at: [facility], [address] [place] [address], [facility]- , , [facility] Comment on above: Performed By: #### [id number] #### [facility] [address] [place] [address] Ambulatory Visit Summaryon 0 06-26-2023 Ambulatory Visit Summary MILAN CAMARILLO :1950 Visit Date:06/25/2023 Ambulatory Visit Instructions Your Diagnosis BPH with urinary obstruction Tests Performed Urnls Dip Stick Auto w/o Microscopy POC 34048 Your Care Team Attending Physician - ALLIE CHOPRA, Jeremy Avery Primary Care Physician - Erasmo CHOPRA, Raegan Adler This Is Your Medications List albuterol (Albuterol (Eqv-ProAir HFA) 90 mcg/inh inhalation aerosol) albuterol (albuterol 0.083% Inh Mary 3 mL) aspirin (aspirin 81 mg Oral EC Tab) atenolol (atenolol 50 mg Tab) atorvastatin (atorvastatin 40 mg Tab) cephalexin (Keflex 500 mg Cap) cholecalciferol (Vitamin D3 2000 intl units) famotidine (famotidine 20 mg Tab) furosemide (furosemide 20 mg Tab) glipiZIDE (glipiZIDE 2.5 mg ER Tab) ibuprofen (ibuprofen 200 mg Tab) imipramine (imipramine 50 mg oral tablet) irbesartan (irbesartan 75 mg Tab) metformin (metformin 500 mg Tab) olodaterol-tiotropium (Stiolto Respimat 2.5 mcg-2.5 mcg inhalation aerosol) omega-3 polyunsaturated fatty acids (Fish Oil 1000 mg oral capsule) ropinirole (ropinirole 0.5 mg Tab) tamsulosin (tamsulosin 0.4 mg Cap) terazosin (terazosin 2 mg Cap) Procedures Performed TURP - Transurethral resection of prostate (12/21/2021), Colonoscopy (01/10/2021), EGD - Esophagogastroduodenos copy (01/10/2021), Cystourethroscopy with dilation of urethral stricture (05/07/2017), Brachytherapy (09/19/2016), TURP - Transurethral resection of prostate (04/11/2016), Cystoscopy (04/02/2016), Transrectal biopsy of prostate using ultrasound (US) guidance (07/04/2015), Appendectomy, External beam radiotherapy, Procedure on back. What to do next Scheduled Follow-Up Appointments Friday 9:15 AM EDT With: ALLIE CHOPRA, Jeremy Avery Where: [facility] [address] \.br\ Medications\.br\ What How Much When Instructions\.br\ Unchanged albuterol (Albuterol (Eqv-ProAir HFA) 90 mcg/ inh inhalation aerosol) 2 Puffs Inhalation Every 6 hours\.br\ Unchanged albuterol (albuterol 0.083% Inh Mary 3 mL) 3 Milliliter Nebulized inhalation (aerosol) Every 4 hours\.br\ Unchanged aspirin (aspirin 81 mg Oral EC Tab)\.br\ Unchanged atenolol (atenolol 50 mg Tab) 1 Tablets By Mouth 2 times a day\.br\ Unchanged atorvastatin (atorvastatin 40 mg Tab) 1 Tablets By Mouth Every day\.br\ Unchanged cephalexin (Keflex 500 mg Cap) 1 Capsules By Mouth Every 12 hours\.br\ Unchanged cholecalciferol (Vitamin D3 2000 intl units)\.br\ Unchanged famotidine (famotidine 20 mg Tab) See instructions TAKE 1 TABLET BY MOUTH TWICE A DAY NEEDED FOR GERD SYMPTOMS \.br\ Unchanged furosemide (furosemide 20 mg Tab) 1 Tablets By Mouth 2 times a day\.br\ Unchanged glipiZIDE (glipiZIDE 2.5 mg ER Tab) 1 Tablets By Mouth Every day\.br\ Unchanged ibuprofen (ibuprofen 200 mg Tab)\.br\ Unchanged imipramine (imipramine 50 mg oral tablet) 1 Tablets By Mouth 2 times a day\.br\ Unchanged irbesartan (irbesartan 75 mg Tab) 1 Tablets By Mouth Every day\.br\ Unchanged metformin (metformin 500 mg Tab) 1 Tablets By Mouth 2 times a day\.br\ Unchanged olodaterol-tiotropi um (Stiolto Respimat 2.5 mcg-2.5 mcg inhalation aerosol) 2 Puffs Inhalation Every 24 hours\.br\ Unchanged omega-3 polyunsaturated fatty acids (Fish Oil 1000 mg oral capsule)\.br\ Unchanged ropinirole (ropinirole 0.5 mg Tab) 1 Tablets By Mouth 2 times a day\.br\ Unchanged tamsulosin (tamsulosin 0.4 mg Cap) 1 Capsules By Mouth Every day\.br\ Unchanged terazosin (terazosin 2 mg Cap) 1 Capsules By Mouth Once a day (at bedtime)\.br\ Test Results\.br\ Urnls Dip Stick Auto w/o Microscopy POC 74814 (06/25/2023)\.br\ Bilirubin Urine Dipstick - Negative\.br\ Blood Urine Dipstick - 3+ Large\.br\ Glucose Urine Dipstick - Negative\.br\ Ketones Urine Dipstick - Negative\.br\ Leukocytes Urine Dipstick - 3+ Large\.br\ Nitrite Urine Dipstick - Negative\.br\ Protein Urine Dipstick - 2+ (100 mg/dl)\.br\ Specific [place] Urine Dipstick - 1.020\.br\ Urine Appearance Urine Dipstick - Clear\.br\ Urine Color Urine Dipstick - Yellow\.br\ Urobilinogen Urine Dipstick - Normal 0.2-1 EU/dl\.br\ pH Urine Dipstick - 6\.br\ Allergies\.br\ contrast media (iodine-based) (Unknown)\.br\ inositol (Unknown)\.br\ shellfish (Unknown)\.br\ Problems\.br\ Ongoing - Any problem that you are currently receiving treatment for.\.br\ Acute URI\.br\ Arthritis\.br\ Back pain\.br\ BPH with urinary obstruction\.br\ Chronic prostatitis\.br\ COPD without exacerbation\.br\ Former smoker\.br\ GERD (gastroesophageal reflux disease)\.br\ Gross hematuria\.br\ History of prostate cancer\.br\ History of pyelonephritis\.br\ HLD (hyperlipidemia)\.b r\ Hyperlipidemia\.br\ Hypertension\.br\ Impotence\.br\ Incomplete bladder emptying\.br\ Intermittent self-catheterizatio n of bladder\.br\ Left varicocele\.br\ Non-smoker\.br\ Renal mass\.br\ Scrotal swelling\.br\ Type 2 diabetes mellitus without complication, without long-term current use of insulin\.br\ Patient Survey\.br\ You may receive a survey via text or e-mail asking about your office visit. Please share your experience with us by completing your survey. We appreciate your feedback and thank you for choosing us for your care.\.br\ \.br\ [facility] URINALYSISOrdered By: Santiago Vasquez on 06-25-2023 Bacteria LM Ql (Urine sed) 1+ /HPF Invalid Interpretation Code Trace/HPF [facility] UA Auto SS Bilirubin Ql (U) Negative (06/25/23 11:32 AM) Normal Negative [facility] UA Auto SS Clarity (U) Clear (06/25/23 11:32 AM) Normal Clear [facility] UA Auto SS Color (U) Yellow (06/25/23 11:32 AM) Normal Yellow [facility] UA Auto SS Epithelial cells.squamous LM.HPF (Urine sed) [#/Area] 5-8 /HPF Normal 0-2/HPF [facility] UA Auto SS Glucose Test strip (U) [Mass/Vol] Negative (06/25/23 11:32 AM) Normal Negative [facility] UA Auto SS Hemoglobin Ql (U) 3+ *ABN* (06/25/23 11:32 AM) Invalid Interpretation Code Negative [facility] UA Auto SS Ketones (U) [Mass/Vol] Negative (06/25/23 11:32 AM) Normal Negative [facility] UA Auto SS Panora.plasma/Lit hium.RBC (Bld) [Mass ratio] 4-20 /HPF Normal 0-3/HPF [facility] UA Auto SS Nitrite Ql (U) Negative (06/25/23 11:32 AM) Normal Negative [facility] [place] pH (U) 6.0 *NA* (06/25/23 11:32 AM) Invalid Interpretation Code 5.0 - 9.0 [facility] [place] Auto SS Protein (U) [Mass/Vol] 1+ *ABN* (06/25/23 11:32 AM) Invalid Interpretation Code Negative [facility] [place] Auto SS Specific gravity (U) [Rel density] <=1.005 *NA* (06/25/23 11:32 AM) Invalid Interpretation Code 1.005 - 1.030 [facility] [place] Auto SS UA Spec Desc Clean Catch (06/25/23 11:32 AM) Normal [facility] [place]A Auto SS Urobilinogen Qn (U) [id number] {Yamileth'U}/dL Normal 0.0 - 1.0 EU/dL [facility] [place] Auto SS WBC Auto Ql (U) 2+ *ABN* (06/25/23 11:32 AM) Invalid Interpretation Code Negative [facility] [place] Auto SS WBC LM.HPF (Urine sed) [#/Area] 16-25 /HPF Invalid Interpretation Code 0-5/HPF [facility] [place] [facility] Auto SS Urinalysison 06-25-2023 Bacteria LM Ql (Urine sed) 1+ /HPF Abnormal Trace [facility] Comment on above: Performed By: #### 1 [id number] #### [facility] [address] [place] [address] Bilirubin Ql (U) Negative Normal Negative [facility] Comment on above: Performed By: #### 1 [id number] #### [facility] [address] [place] [address] Clarity (U) CLEAR Normal Clear [facility] Comment on above: Performed By: #### 1 [id number] #### [facility] [address] [place] [address] Color (U) YELLOW Normal Yellow [facility] Comment on above: Performed By: #### 1 [id number] #### [facility] [address] [place] [address] Epithelial cells.squamous LM.HPF (Urine sed) [#/Area] 5-8 Normal 0-2 [facility] Comment on above: Performed By: #### 1 [id number] #### [facility] [address] [place] [address] Glucose Test strip (U) [Mass/Vol] Negative Normal Negative [facility] Comment on above: Performed By: #### 1 [id number] #### [facility] [address] [place] [address] Hemoglobin Ql (U) 3+ Abnormal Negative [facility] Comment on above: Performed By: #### 1 [id number] #### [facility] [address] [place] [address] Ketones (U) [Mass/Vol] Negative Normal Negative [facility] Comment on above: Performed By: #### 1 [id number] #### [facility] [address] [place] [address] Panora.plasma/Lit hium.RBC (Bld) [Mass ratio] 4-20 Normal 0-3 [facility] Comment on above: Performed By: #### 1 [id number] #### [facility] [address] [place] [address] Nitrite Ql (U) Negative Normal Negative [facility] Comment on above: Performed By: #### 1 [id number] #### [facility] [address] [place] [address] pH (U) 6.0 [pH] Invalid Interpretation Code 5.0-9.0 [facility] Comment on above: Performed By: #### 1 [id number] #### [facility] [address] [place] [address] Protein (U) [Mass/Vol] 1+ Abnormal Negative [facility] Comment on above: Performed By: #### 1 [id number] #### [facility] [address] [place] [address] Specific gravity (U) [Rel density] <=1.005 Invalid Interpretation Code 1.005-1.030 [facility] Comment on above: Performed By: #### 1 [id number] #### [facility] [facility] [address] [place] [address] Type of Urine collection method Clean Catch Normal [facility] Comment on above: Performed By: #### 1 [id number] #### [facility] [address] [place] [address] Urobilinogen Qn (U) 0.2 {Yamileth'U}/dL Normal 0.0-1.0 [facility] Comment on above: Performed By: #### 1 [id number] #### [facility] [address] [place] [address] WBC Auto Ql (U) 2+ Abnormal Negative [facility] Comment on above: Performed By: #### 1 [id number] #### [facility] [address] [place] [address] WBC LM.HPF (Urine sed) [#/Area] 16-25 Abnormal 0-5 [facility] Comment on above: Performed By: #### 1 [id number] #### [facility] [address] [place] [address] RAD - MISCon 06-10-2023 RAD - MISC [id number] 20 [id number] 0TIFF Normal [facility] Ambulatory Visit Summaryon 1 08-10-2022 Ambulatory Visit Summary MILAN CAMARILLO :1950 Visit Date:06/09/2023 Ambulatory Visit Instructions Your Diagnosis Type 2 diabetes mellitus without complication, without long-term current use of insulin Hypertension Acute URI Cough Your Care Team Attending Physician - Raegan March MD Primary Care Physician - Raegan March MD This Is Your Medications List albuterol (Albuterol (Eqv-ProAir HFA) 90 mcg/inh inhalation aerosol) albuterol (albuterol 0.083% Inh Mary 3 mL) aspirin (aspirin 81 mg Oral EC Tab) atenolol (atenolol 50 mg Tab) atorvastatin (atorvastatin 40 mg Tab) azithromycin (azithromycin 250 mg Tab 5-day Dose Pack (Z-Raimundo)) benzonatate (benzonatate 200 mg oral capsule) cholecalciferol (Vitamin D3 2000 intl units) famotidine (famotidine 20 mg Tab) furosemide (furosemide 20 mg Tab) glipiZIDE (glipiZIDE 2.5 mg ER Tab) ibuprofen (ibuprofen 200 mg Tab) imipramine (imipramine 50 mg oral tablet) irbesartan (irbesartan 75 mg Tab) metformin (metformin 500 mg Tab) methylPREDNISolone (Medrol Dosepack 4 mg Tab) olodaterol-tiotropium (Stiolto Respimat 2.5 mcg-2.5 mcg inhalation aerosol) omega-3 polyunsaturated fatty acids (Fish Oil 1000 mg oral capsule) ropinirole (ropinirole 0.5 mg Tab) tamsulosin (tamsulosin 0.4 mg Cap) terazosin (terazosin 2 mg Cap) Procedures Performed TURP - Transurethral resection of prostate (12/21/2021), Colonoscopy (01/10/2021), EGD - Esophagogastroduodenos copy (01/10/2021), Cystourethroscopy with dilation of urethral stricture (05/07/2017), Brachytherapy (09/19/2016), TURP - Transurethral resection of prostate (04/11/2016), Cystoscopy (04/02/2016), Transrectal biopsy of prostate using ultrasound (US) guidance (07/04/2015), Appendectomy, External beam radiotherapy, Procedure on back. Discharge Vitals Temperature (Temporal Artery) 36.1 ?C Heart Rate (Peripheral) 97 Respiratory Rate 16 Blood Pressure 122/80 Height 188 cm Height 74 in What to do next Scheduled Follow-Up Appointments Friday 9:15 AM EDT With: ALLIE CHOPRA, Jeremy Avery Where: [facility] [id number] \.br\ Medications\.br\ What How Much When Why Instructions\.br\ New azithromycin (azithromycin 250 mg Tab 5-day Dose Pack (Z-Raimundo)) 1 Packets By Mouth As Directed Type 2 diabetes mellitus without complication, without long-term current use of insulin Hypertension Acute URI Duration: 5 Days as directed on package labeling Pickup at [facility]/pharmacy #[id number]\.br\ New benzonatate (benzonatate 200 mg oral capsule) 1 Capsules By Mouth 3 times a day Type 2 diabetes mellitus without complication, without long-term current use of insulin Hypertension Acute URI Duration: 7 Days Pickup at [facility]/pharmacy #[id number]\.br\ New methylPREDNISolone (Medrol Dosepack 4 mg Tab) 1 Packets By Mouth As Directed Type 2 diabetes mellitus without complication, without long-term current use of insulin Hypertension Acute URI Duration: 6 Days as directed on package labeling Pickup at [facility]/pharmacy #[id number]\.br\ Unchanged albuterol (Albuterol (Eqv-ProAir HFA) 90 mcg/ inh inhalation aerosol) 2 Puffs Inhalation Every 6 hours\.br\ Unchanged albuterol (albuterol 0.083% Inh Mary 3 mL) 3 Milliliter Nebulized inhalation (aerosol) Every 4 hours\.br\ Unchanged aspirin (aspirin 81 mg Oral EC Tab)\.br\ Unchanged atenolol (atenolol 50 mg Tab) 1 Tablets By Mouth 2 times a day\.br\ Unchanged atorvastatin (atorvastatin 40 mg Tab) 1 Tablets By Mouth Every day\.br\ Unchanged cholecalciferol (Vitamin D3 2000 intl units)\.br\ Unchanged famotidine (famotidine 20 mg Tab) See instructions TAKE 1 TABLET BY MOUTH TWICE A DAY NEEDED FOR GERD SYMPTOMS \.br\ Unchanged furosemide (furosemide 20 mg Tab) 1 Tablets By Mouth 2 times a day\.br\ Unchanged glipiZIDE (glipiZIDE 2.5 mg ER Tab) 1 Tablets By Mouth Every day\.br\ Unchanged ibuprofen (ibuprofen 200 mg Tab)\.br\ Unchanged imipramine (imipramine 50 mg oral tablet) 1 Tablets By Mouth 2 times a day\.br\ Unchanged irbesartan (irbesartan 75 mg Tab) 1 Tablets By Mouth Every day\.br\ Unchanged metformin (metformin 500 mg Tab) 1 Tablets By Mouth 2 times a day\.br\ Unchanged olodaterol-tiotropi um (Stiolto Respimat 2.5 mcg-2.5 mcg inhalation aerosol) 2 Puffs Inhalation Every 24 hours\.br\ Unchanged omega-3 polyunsaturated fatty acids (Fish Oil 1000 mg oral capsule)\.br\ Unchanged ropinirole (ropinirole 0.5 mg Tab) 1 Tablets By Mouth 2 times a day\.br\ Unchanged tamsulosin (tamsulosin 0.4 mg Cap) 1 Capsules By Mouth Every day\.br\ Unchanged terazosin (terazosin 2 mg Cap) 1 Capsules By Mouth Once a day (at bedtime)\.br\ Pharmacy Information\.br\ [facility]/pharmacy #[id number]: [address], [place] [id number] [phone]\.br\ Allergies\.br\ contrast media (iodine-based) (Unknown)\.br\ inositol (Unknown)\.br\ shellfish (Unknown)\.br\ Problems\.br\ Ongoing - Any problem that you are currently receiving treatment for.\.br\ Acute URI\.br\ Arthritis\.br\ Back pain\.br\ BPH with urinary obstruction\.br\ Chronic prostatitis\.br\ COPD without exacerbation\.br\ Former smoker\.br\ GERD (gastroesophageal reflux disease)\.br\ Gross hematuria\.br\ History of prostate cancer\.br\ History of pyelonephritis\.br\ HLD (hyperlipidemia)\.b r\ Hyperlipidemia\.br\ Hypertension\.br\ Impotence\.br\ Incomplete bladder emptying\.br\ Intermittent self-catheterizatio n of bladder\.br\ Left varicocele\.br\ Non-smoker\.br\ Renal mass\.br\ Scrotal swelling\.br\ Type 2 diabetes mellitus without complication, without long-term current use of insulin\.br\ Patient Survey\.br\ You may receive a survey via text or e-mail asking about your office visit. Please share your experience with us by completing your survey. We appreciate your feedback and thank you for choosing us for your care.\.br\ Education Materials\.br\ Hypertension, Adult\.br\ High blood pressure (hypertension) is when the force of blood pumping through the arteries is too strong. The arteries are the blood vessels that carry blood from the heart throughout the body. Hypertension forces the heart to work harder to pump blood and may cause arteries to become narrow or stiff. Untreated or uncontrolled hypertension can lead to a heart attack, heart failure, a stroke, kidney disease, and other problems.\.br\ A blood pressure reading consists of a higher number over a lower number. Ideally, your blood pressure should be below 120/80. The first ( top ) number is called the systolic pressure. It is a measure of the pressure in your arteries as your heart beats. The second ( bottom ) number is called the diastolic pressure. It is a measure of the pressure in your arteries as the heart relaxes.\.br\ What are the causes?\.br\ The exact cause of this condition is not known. There are some conditions that result in high blood pressure.\.br\ What increases the risk?\.br\ Certain factors may make you more likely to develop high blood pressure. Some of these risk factors are under your control, including:\.br\ ? \.br\ Smoking.\.br\ ? \.br\ Not getting enough exercise or physical activity.\.br\ ? \.br\ Being overweight.\.br\ ? \.br\ Having too much fat, sugar, calories, or salt (sodium) in your diet.\.br\ ? \.br\ Drinking too much alcohol.\.br\ Other risk factors include:\.br\ ? \.br\ Having a personal history of heart disease, diabetes, high cholesterol, or kidney disease.\.br\ ? \.br\ Stress.\.br\ ? \.br\ Having a family history of high blood pressure and high cholesterol.\.br\ ? \.br\ Having obstructive sleep apnea.\.br\ ? \.br\ Age. The risk increases with age.\.br\ What are the signs or symptoms?\.br\ High blood pressure may not cause symptoms. Very high blood pressure (hypertensive crisis) may cause:\.br\ ? \.br\ Headache.\.br\ ? \.br\ Fast or irregular heartbeats (palpitations).\.br \ ? \.br\ Shortness of breath.\.br\ ? \.br\ Nosebleed.\.br\ ? \.br\ Nausea and vomiting.\.br\ ? \.br\ Vision changes.\.br\ ? \.br\ Severe chest pain, dizziness, and seizures.\.br\ How is this diagnosed?\.br\ This condition is diagnosed by measuring your blood pressure while you are seated, with your arm resting on a flat surface, your legs uncrossed, and your feet flat on the floor. The cuff of the blood pressure monitor will be placed directly against the skin of your upper arm at the level of your heart. Blood pressure should be measured at least twice using the same arm. Certain conditions can cause a difference in blood pressure between your right and left arms.\.br\ If you have a high blood pressure reading during one visit or you have normal blood pressure with other risk factors, you may be asked to:\.br\ ? \.br\ Return on a different day to have your blood pressure checked again.\.br\ ? \.br\ Monitor your blood pressure at home for 1 week or longer.\.br\ If you are diagnosed with hypertension, you may have other blood or imaging tests to help your health care provider understand your overall risk for other conditions.\.br\ How is this treated?\.br\ This condition is treated by making healthy lifestyle changes, such as eating healthy foods, exercising more, and reducing your alcohol intake. You may be referred for counseling on a healthy diet and physical activity.\.br\ Your health care provider may prescribe medicine if lifestyle changes are not enough to get your blood pressure under control and if:\.br\ ? \.br\ Your systolic blood pressure is above 130.\.br\ ? \.br\ Your diastolic blood pressure is above 80.\.br\ Your personal target blood pressure may vary depending on your medical conditions, your age, and other factors.\.br\ Follow these instructions at [facility] Auto Diffon 06-09-2023 Basophils/100 WBC (Bld) 1.1 % Normal 0.0-2.0 [facility] Comment on above: Order Comment: Order Added by Discern Expert. Performed By: #### 2 365359, 18035879, 3405213, 3056371, [id number] ####[facility] [address] [place] [address] Basophils/Leukocyt es Auto (Bld) [Pure # fraction] 0.1 E9/L Normal 0.0-0.2 [facility] Comment on above: Order Comment: Order Added by Debby Expert. Performed By: #### 2 586493, 47152058, 0929235, 0574836, 766538857 ####[facility] [address] [place] [address] Eosinophils/100 WBC (Bld) 5.7 % Normal 0.0-8.0 [facility] Comment on above: Order Comment: Order Added by Discern Expert. Performed By: #### 2 707649, 41427625, 2113133, 8160367, [id number] ####[address] [address] Eosinophils/Leukoc ytes Auto (Bld) [Pure # fraction] 0.3 E9/L Normal 0.0-0.5 [facility] Comment on above: Order Comment: Order Added by Discern Expert. Performed By: #### 2 158783, 78727877, 0360384, 0254008, 140042557 ####[address] [address] Lymphocytes/100 WBC (Bld) 17.1 % Normal 14.0-50.0 [facility] Comment on above: Order Comment: Order Added by Discern Expert. Performed By: #### 2 526874, 07921144, 6614008, 9548641, [id number] ####[address] [address] Lymphocytes/Leukoc ytes Auto (Bld) [Pure # fraction] 1.0 E9/L Normal 1.0-4.0 [facility] Comment on above: Order Comment: Order Added by Discern Expert. Performed By: #### 2 367056, [id number], 6416571, 2721908, 225280983 ####[address] [address] Monocytes/100 WBC (Bld) 22.9 % High 4.0-14.0 [facility] Comment on above: Order Comment: Order Added by Discern Expert. Performed By: #### 2 861104, 24329709, 5515374, 1411462, 919633810 ####[address] [address] Monocytes/Leukocyt es Auto (Bld) [Pure # fraction] 1.3 E9/L High 0.2-1.0 [facility] Comment on above: Order Comment: Order Added by Discern Expert. Performed By: #### 2 014950, 02803042, 1411341, 7103785, [id number] ####[place] [address] [place] [address] Neutrophils/100 WBC (Bld) 53.2 % Normal 36.0-75.0 [facility] Comment on above: Order Comment: Order Added by Discern Expert. Performed By: #### 2 749410, 55419247, 0043010, 4021349, 542860404 ####[place] [address] [place] [address] Neutrophils/Leukoc ytes Auto (Bld) [Pure # fraction] 3.0 E9/L Normal 2.0-7.5 [facility] Comment on above: Order Comment: Order Added by Discern Expert. Performed By: #### 2 664861, 79386711, 3054199, 1238156, [id number] ####[address] [address] CBC w/ Auto Diffon 3 Erythrocyte distribution width (RBC) [Ratio] 15.9 % High 10.9-14.2 [facility] Comment on above: Performed By: #### 2 835203, 98162161, 1207328, 2679932, 220287761 ####[address] [place] [address] Hematocrit (Bld) [Volume fraction] 39.1 % Normal 37.7-49.0 [facility] Comment on above: Performed By: #### 2 941052, 52024728, 4046676, 0064901, 311423771 ####[address] [place] [address] Hemoglobin (Bld) [Mass/Vol] 13.0 g/dL Low 13.5-17.5 [facility] Comment on above: Performed By: #### 2 857282, 77746606, 7807634, 8361499, 664012231 ####[address] [address] MCH (RBC) [Entitic mass] 28.6 pg Normal 27.0-34.0 [facility] Comment on above: Performed By: #### 2 828162, 20782212, 5756356, 4560695, 742933035 ####[address] [address] MCHC (RBC) [Mass/Vol] 33.3 g/dL Normal 31.4-36.0 [facility] Comment on above: Performed By: #### 2 135407, 29615118, 4157674, 7313725, 983746759 ####[address] [address] MCV (RBC) [Entitic vol] 86.0 fL Normal 80.0-100.0 [facility] Comment on above: Performed By: #### 2 965832, 44135282, 8600147, 0697536, 266602865 ####[address] [address] Platelet mean volume (Bld) [Entitic vol] 9.0 fL Normal 6.4-10.8 [facility] Comment on above: Performed By: #### 2 059985, 76455469, 4540522, 8834800, 274038506 ####[address] [address] Platelets (Bld) [#/Vol] 186.0 E9/L Normal 150.0-500.0 [facility] Comment on above: Performed By: #### 2 722990, 45409751, 5230685, 4088194, 938871470 ####[address] [address] RBC (Bld) [#/Vol] 4.5 E12/L Normal 4.3-5.9 [facility] Comment on above: Performed By: #### 2 406736, 36297873, 4682300, 2334060, 791322227 ####[address] [place] [address] WBC corrected for nucl RBC Auto (Bld) [#/Vol] 5.7 E9/L Normal 4.0-11.0 [facility] Comment on above: Result Comment: Ibeth garcia reviewed by HARVINDER. Performed By: #### 2 631708, 64617659, 1345700, 9802763, 733053034 ####[facility] [address] [place] [address] CHEMISTRYOrdered By: SYSTEM SYSTEM on 06-09-2023 Albumin [Mass/Vol] 4.0 g/dL Normal 3.3 - 5.0 gm/dL R emisol Chem Albumin/Globulin [Mass ratio] 1.4 {ratio} Normal 1.1 - 2.2 Remisol Chem Alk Phos 75 [iU]/d Normal 21 - 98 Int._Unit/L Remis ol Chem ALT 18 [iU]/d Normal 6 - 46 Int._Unit/L Remiso l Chem Anion gap [Moles/Vol] 10 mmol/L Normal 6 - 16 mEq/L Remisol Chem AST 17 [iU]/d Normal 5 - 43 Int._Unit/L Remiso l Chem Bili Total 0.6 mg/dL Normal 0.0 - 1.1 mg/dL Remisol Chem Calcium [Mass/Vol] 9.0 mg/dL Normal 8.9 - 11.1 mg/dL Remisol Chem Chloride [Moles/Vol] 104 mmol/L Normal 101 - 111 mmol/L Remisol Chem CO2 [Moles/Vol] 31 mmol/L Normal 21 - 31 mmol/L Remis ol Chem Creatinine [Mass/Vol] 1.2 mg/dL Normal 0.5 - 1.3 mg/dL Remisol Chem eGFR mL/min/1.73 m2 Normal >=59mL/min/1.73 m2 Re misol Chem Globulin (S) [Mass/Vol] 2.9 g/dL Normal 1.4 - 4.0 gm/dL Remisol Chem Glucose [Mass/Vol] 79 mg/dL Normal 55 - 199 mg/dL Re misol Chem Potassium [Moles/Vol] 4.1 mmol/L Normal 3.5 - 5.3 mmol/L Remisol Chem Protein [Mass/Vol] 6.9 g/dL Normal 6.0 - 7.8 gm/dL R emisol Chem Sodium [Moles/Vol] 141 mmol/L Normal 135 - 145 mmol/L Remisol Chem Urea nitrogen [Mass/Vol] 11 mg/dL Normal 5 - 21 mg/dL Remisol Chem Urea nitrogen/Creatinin e [Mass ratio] 9 mg/mg Low 10 - 20 Remisol Chem CHEMISTRYOrdered By: Cynthia Sauceda on 06-09-2023 HbA1c (Bld) [Mass fraction] 5.2 % Normal <=5.9% [facility] [place] ChemAutoSS CMPon 06-09-2023 Albumin [Mass/Vol] 4.0 g/dL Normal 3.3-5.0 [facility] Comment on above: Performed By: #### 2 204695, 44307915, 3054471, 5330932, 965821414 ####[facility] [address] [place] [address] Albumin/Globulin [Mass ratio] 1.4 {ratio} Normal 1.1-2.2 [facility] Comment on above: Performed By: #### 2 645109, 34588331, 9014790, 5272184, 246751446 ####[facility] [address] [place] [address] Alk Phos 75 Int._Unit/L Normal 21-98 [facility] Comment on above: Performed By: #### 2 218807, 19850441, 4240276, 9420688, 506256029 ####[facility] [address] [place] [address] ALT 18 Int._Unit/L Normal 6-46 [facility] Comment on above: Performed By: #### 2 970823, 95757064, 2729867, 7244703, 798059097 ####[facility] [address] [place] [address] Anion gap [Moles/Vol] 10 mmol/L Normal 6-16 [facility] Comment on above: Performed By: #### 2 188866, 31129430, 0179685, 7668525, 908489374 ####[facility] [address] [place] [address] AST 17 Int._Unit/L Normal 5-43 [facility] Comment on above: Performed By: #### 2 473478, 64164434, 5272808, 5400017, 611494832 ####[facility] [address] [place] [address] Bili Total 0.6 mg/dL Normal 0.0-1.1 [facility] Comment on above: Performed By: #### 2 839651, 43635630, 1378822, 0595172, 337554752 ####[facility] [address] [place] [address] BUN/Creat Ratio 9 No Units Low 10-20 [facility] Comment on above: Performed By: #### 2 290772, 23198199, 0013156, 1074493, 494741574 ####[facility] [address] [place] [address] Calcium [Mass/Vol] 9.0 mg/dL Normal 8.9-11.1 [facility] Comment on above: Performed By: #### 2 545983, 96390875, 0925755, 7574146, 743406054 ####[facility] [address] [place] [address] Chloride [Moles/Vol] 104 mmol/L Normal 101-111 [facility] Comment on above: Performed By: #### 2 763853, 22476743, 6279920, 2397460, 864434608 ####[facility] [address] [place] [address] CO2 [Moles/Vol] 31 mmol/L Normal 21-31 [facility] Comment on above: Performed By: #### 2 544247, 25314344, 2054510, 2308518, 608382414 ####[facility] [address] [place] [address] Creatinine [Mass/Vol] 1.2 mg/dL Normal 0.5-1.3 [facility] Comment on above: Performed By: #### 2 415043, 51124422, 7057972, 4820815, 215981557 ####[facility] [address] [place] [address] Globulin (S) [Mass/Vol] 2.9 g/dL Normal 1.4-4.0 [facility] Comment on above: Performed By: #### 2 927961, 19708272, 9963492, 5946169, 606706746 ####[facility] [address] [place] [address] Glucose [Mass/Vol] 79 mg/dL Normal 55-199 [facility] Comment on above: Performed By: #### 2 210665, 96319115, 3006419, 5363823, 484669460 ####[facility] [address] [place] [address] Potassium [Moles/Vol] 4.1 mmol/L Normal 3.5-5.3 [facility] Comment on above: Performed By: #### 2 419791, 83700881, 1251600, 3014595, 558346182 ####[facility] [address] [place] [address] Protein [Mass/Vol] 6.9 g/dL Normal 6.0-7.8 [facility] Comment on above: Performed By: #### 2 480461, 96311567, 1266618, 1111255, 498794898 ####[facility] [address] [place] [address] Sodium [Moles/Vol] 141 mmol/L Normal 135-145 [facility] Comment on above: Performed By: #### 2 691176, 71563789, 3984582, 1260838, 254686099 ####[facility] [address] [place] [address] Urea nitrogen [Mass/Vol] 11 mg/dL Normal 5-21 [facility] Comment on above: Performed By: #### 2 082608, 69677071, 1392641, 0541644, 634694416 ####[facility] [address] [place] [address] Family Medicine Office/Clini c Noteon 06-09-2023 Family Medicine Office/Clinic Note HPI Staff Milan is a 72 year old male presenting for acute visit Respiratory C/O: Onset: couple days ago Body aches: no Chest congestion: yes Chills: no Cough: yes Sputum production: yes half and half on colored and clear Sore throat: no Ear complaints: no Eye itching/watering: no Fever: yes yesterday Headache: no Nasal congestion: yes Nasal discharge: yes clear Poor appetite: yes Reduced activity: yes Sinus pain/pressure: no Sneezing: yes Wheezing: yes Ill contacts: yes and great grand child Remedies tried: coricidin and cough syrup flu: UTD Questions/Concerns: none History of Present Illness - Here for cough and wheezing - Just started and his was sick last week - No other issues at this time. - Has not had his DM checked. Review of Systems PHQ Score Initial Depression Screen Score: 0 SCORE Physical Exam Vitals & Measurements T: 36.1 ?C(Temporal Artery) HR: 97(Peripheral) RR: 16 BP: 122/80 SpO2: 97% HT: 74 in HT: 188 cm General: alert, no acute distress ENMT: oral mucosa moist, Cardiovascular: regular rate and rhythm, normal peripheral perfusion Respiratory: Lungs rhonchi, respirations non labored Extremities: no deformity, no trauma, No edema Neurological: oriented x 4, LOC appropriate for age, CN II-XII intact, motor strength equal & normal bilaterally, speech normal Abdomen: Soft, Nontender, Non-distended, + BS Assessment/Plan 1. Type 2 diabetes mellitus without complication, without long-term current use of insulin (E11.9: Type 2 diabetes mellitus without complications) - Will do lab work. - Will do medrol today, but if BS are not controlled he will need to stop the medrol Ordered: azithromycin, = 1 packet(s), Oral, As Directed, as directed on package labeling, X 5 day(s), # 6 tab(s), Refills(s) 0, Pharmacy: [facility]/pharmacy #[id number], 188, cm, 06/09/23 13:56:00 EST, Height/Length Dosing, 127.9, kg, 03/17/23 11:18:00 EDT, Weight Dosing benzonatate, 200 mg = 1 cap(s), Oral, TID, X 7 day(s), # 21 cap(s), Refills(s) 0, [id number] 188, cm, 06/09/23 13:56:00 EST, Height/Length Dosing, 127.9, kg, 03/17/23 11:18:00 EDT, Weight Dosing methylPREDNISolone, = 1 packet(s), Oral, As Directed, as directed on package labeling, X 6 day(s), # 21 tab(s), Refills(s) 0, [id number] 188, cm, 06/09/23 13:56:00 EST, Height/Length Dosing, 127.9, kg, 03/17/23 11:18:00 EDT, Weight Dosing CBC w/ Auto Diff Comprehensive Metabolic Panel HgbA1c 2. Hypertension (I10: Essential (primary) hypertension) - At goal Ordered: azithromycin, = 1 packet(s), Oral, As Directed, as directed on package labeling, X 5 day(s), # 6 tab(s), Refills(s) 0, [id number] 188, cm, 06/09/23 13:56:00 EST, Height/Length Dosing, 127.9, kg, 03/17/23 11:18:00 EDT, Weight Dosing benzonatate, 200 mg = 1 cap(s), Oral, TID, X 7 day(s), # 21 cap(s), Refills(s) 0, [id number] 188, cm, 06/09/23 13:56:00 EST, Height/Length Dosing, 127.9, kg, 03/17/23 11:18:00 EDT, Weight Dosing methylPREDNISolone, = 1 packet(s), Oral, As Directed, as directed on package labeling, X 6 day(s), # 21 tab(s), Refills(s) 0, [facility] [id number], 188, cm, 06/09/23 13:56:00 EST, Height/Length Dosing, 127.9, kg, 03/17/23 11:18:00 EDT, Weight Dosing CBC w/ Auto Diff Comprehensive Metabolic Panel HgbA1c 3. Acute URI (J06.9: Acute upper respiratory infection, unspecified) - Pt will do medrol and Zpak. - Continue on inhalers as before. - Concern for PNA so will send CXR - Covid Negative Ordered: azithromycin, = 1 packet(s), Oral, As Directed, as directed on package labeling, X 5 day(s), # 6 tab(s), Refills(s) 0, [id number], cm, 06/09/23 13:56:00 EST, Height/Length Dosing, 127.9, kg, 03/17/23 11:18:00 EDT, Weight Dosing benzonatate, 200 mg = 1 cap(s), Oral, TID, X 7 day(s), # 21 cap(s), Refills(s) 0, [id number] 188, cm, 06/09/23 13:56:00 EST, Height/Length Dosing, 127.9, kg, 03/17/23 11:18:00 EDT, Weight Dosing methylPREDNISolone, = 1 packet(s), Oral, As Directed, as directed on package labeling, X 6 day(s), # 21 tab(s), Refills(s) 0, [id number] 188, cm, 06/09/23 13:56:00 EST, Height/Length Dosing, 127.9, kg, 03/17/23 11:18:00 EDT, Weight Dosing CBC w/ Auto Diff Comprehensive Metabolic Panel HgbA1c 4. Cough (R05.9: Cough, unspecified) - As above. Ordered: Rapid COVID POC 16740 Follow-up No qualifying data available Patient Education Hypertension, Adult Problem List/Past Medical History Ongoing Acute URI Arthritis Back pain BPH with urinary obstruction Chronic prostatitis COPD without exacerbation Former smoker GERD (gastroesophageal reflux disease) Gross hematuria History of prostate cancer History of pyelonephritis HLD (hyperlipidemia) Hyperlipidemia Hypertension Impotence Incomplete bladder emptying Intermittent self-catheterization of bladder L (more content not included)... Normal [facility] Comment on above: Result Comment: Elec tronically Signed By: Erasmo CHOPRA, Raegan E.\.br\Date and Time Signed: 06/09/23 14:28 EST HEMATOLOGYOrdered By: SYSTEM SYSTEM on 06-09-2023 Basophils/100 WBC (Bld) 1.1 % Normal 0.0 - 2.0 % [facility] Basophils/Leukocyt es Auto (Bld) [Pure # fraction] 0.1 E9/L Normal 0.0 - 0.2 E9/L [facility] Eosinophils/100 WBC (Bld) 5.7 % Normal 0.0 - 8.0 % [facility] Eosinophils/Leukoc ytes Auto (Bld) [Pure # fraction] 0.3 E9/L Normal 0.0 - 0.5 E9/L [facility] Lymphocytes/100 WBC (Bld) 17.1 % Normal 14.0 - 50.0 % [facility] Lymphocytes/Leukoc ytes Auto (Bld) [Pure # fraction] 1.0 E9/L Normal 1.0 - 4.0 E9/L [facility] Monocytes/100 WBC (Bld) 22.9 % High 4.0 - 14.0 % [facility] Monocytes/Leukocyt es Auto (Bld) [Pure # fraction] 1.3 E9/L High 0.2 - 1.0 E9/L [facility] Neutrophils/100 WBC (Bld) 53.2 % Normal 36.0 - 75.0 % [facility] Neutrophils/Leukoc ytes Auto (Bld) [Pure # fraction] 3.0 E9/L Normal 2.0 - 7.5 E9/L [facility] HEMATOLOGYOrdered By: Jose Lara on 06-09-2023 Erythrocyte distribution width (RBC) [Ratio] 15.9 % High 10.9 - 14.2 % [facility] Hematocrit (Bld) [Volume fraction] 39.1 % Normal 37.7 - 49.0 % [facility] Hemoglobin (Bld) [Mass/Vol] 13.0 g/dL Low 13.5 - 17.5 gm/dL [facility] MCH (RBC) [Entitic mass] 28.6 pg Normal 27.0 - 34.0 pg [facility] MCHC (RBC) [Mass/Vol] 33.3 g/dL Normal 31.4 - 36.0 gm/dL [facility] MCV (RBC) [Entitic vol] 86.0 fL Normal 80.0 - 100.0 fL [facility] Platelet mean volume (Bld) [Entitic vol] 9.0 fL Normal 6.4 - 10.8 fL [facility] Platelets (Bld) [#/Vol] 186.0 E9/L Normal 150.0 - 500.0 E9/L [facility] RBC (Bld) [#/Vol] 4.5 E12/L Normal 4.3 - 5.9 E12/L [facility] WBC corrected for nucl RBC Auto (Bld) [#/Vol] 5.7 E9/L Normal 4.0 - 11.0 E9/L [facility] Comment on above: Result Comment: Slid e reviewed by [email or web address] 06-09-2023 HbA1c (Bld) [Mass fraction] 5.2 % Normal <=5.9 [facility] Comment on above: Performed By: #### 2 [id number] ####[facility] [id number] [place] [address] Patient Educationon 06-09-20 Patient Education Cardiovascular Hypertension, Adult High blood pressure (hypertension) is when the force of blood pumping through the arteries is too strong. The arteries are the blood vessels that carry blood from the heart throughout the body. Hypertension forces the heart to work harder to pump blood and may cause arteries to become narrow or stiff. Untreated or uncontrolled hypertension can lead to a heart attack, heart failure, a stroke, kidney disease, and other problems. A blood pressure reading consists of a higher number over a lower number. Ideally, your blood pressure should be below 120/80. The first ( top ) number is called the systolic pressure. It is a measure of the pressure in your arteries as your heart beats. The second ( bottom ) number is called the diastolic pressure. It is a measure of the pressure in your arteries as the heart relaxes. What are the causes? The exact cause of this condition is not known. There are some conditions that result in high blood pressure. What increases the risk? Certain factors may make you more likely to develop high blood pressure. Some of these risk factors are under your control, including: ? Smoking. ? Not getting enough exercise or physical activity. ? Being overweight. ? Having too much fat, sugar, calories, or salt (sodium) in your diet. ? Drinking too much alcohol. Other risk factors include: ? Having a personal history of heart disease, diabetes, high cholesterol, or kidney disease. ? Stress. ? Having a family history of high blood pressure and high cholesterol. ? Having obstructive sleep apnea. ? Age. The risk increases with age. What are the signs or symptoms? High blood pressure may not cause symptoms. Very high blood pressure (hypertensive crisis) may cause: ? Headache. ? Fast or irregular heartbeats (palpitations). ? Shortness of breath. ? Nosebleed. ? Nausea and vomiting. ? Vision changes. ? Severe chest pain, dizziness, and seizures. How is this diagnosed? This condition is diagnosed by measuring your blood pressure while you are seated, with your arm resting on a flat surface, your legs uncrossed, and your feet flat on the floor. The cuff of the blood pressure monitor will be placed directly against the skin of your upper arm at the level of your heart. Blood pressure should be measured at least twice using the same arm. Certain conditions can cause a difference in blood pressure between your right and left arms. If you have a high blood pressure reading during one visit or you have normal blood pressure with other risk factors, you may be asked to: ? Return on a different day to have your blood pressure checked again. ? Monitor your blood pressure at home for 1 week or longer. If you are diagnosed with hypertension, you may have other blood or imaging tests to help your health care provider understand your overall risk for other conditions. How is this treated? This condition is treated by making healthy lifestyle changes, such as eating healthy foods, exercising more, and reducing your alcohol intake. You may be referred for counseling on a healthy diet and physical activity. Your health care provider may prescribe medicine if lifestyle changes are not enough to get your blood pressure under control and if: ? Your systolic blood pressure is above 130. ? Your diastolic blood pressure is above 80. Your personal target blood pressure may vary depending on your medical conditions, your age, and other factors. Follow these instructions at home: Eating and drinking ? Eat a diet that is high in fiber and potassium, and low in sodium, added sugar, and fat. An example of this eating plan is called the DASH diet. DASH stands for Dietary Approaches to Stop Hypertension. To eat this way: ? Eat plenty of fresh fruits and vegetables. Try to fill one half of your plate at each meal with fruits and vegetables. ? Eat whole grains, such as whole-wheat pasta, brown rice, or whole-grain bread. Fill about one fourth of your plate with whole grains. ? Eat or drink low-fat dairy products, such as skim milk or low-fat yogurt. ? Avoid fatty cuts of meat, processed or cured meats, and poultry with skin. Fill about one fourth of your plate with lean proteins, such as fish, chicken without skin, beans, eggs, or tofu. ? Avoid pre-made and processed foods. These tend to be higher in sodium, added sugar, and fat. ? Reduce your daily sodium intake. Many people with hypertension should eat less than 1,500 mg of sodium a day. ? Do not drink alcohol if: ? Your health care provider tells you not to drink. ? You are , may be , or are planning to become . ? If you drink alcohol: ? Limit how much you have to: ? 0?1 drink a day for women. ? 0?2 drinks a day for men. ? Know how much alcohol is in your drink. In the [place] one drink equals one 12 oz bottle of beer (355 mL), one 5 oz glass of wine (148 mL), or one 1? oz glass (more content not included)... Normal [facility] eGFRon 06-09-2023 GFR/1.73 sq M.predicted among non-blacks MDRD (S/P/Bld) [Vol rate/Area] mL/min/{1.73_m2} Normal >=59 [facility] Comment on above: Order Comment: Order added by Discern Expert. Performed By: #### 2 [id number] ####[facility] [id number] [place] [address] Physician Orderon 05-30-2023 Physician Order [id number]#1.0 0TIFF Normal [facility] Immunization Recordson 05-26 Immunization Records [id number] 0TIFF [facility] Retail - Clinical Noteon Retail - Clinical Note [id number] 0TIFF [facility] Consultation Noteon 04-29-20 23 Consultation Note [id number] 0TIFF [facility] Physician Referralon 023 Physician Referral [id number]#1.0 0CD:127 [facility] Retail - Clinical Noteon Retail - Clinical Note [id number]#1.0 0CD:127 [facility] Ambulatory Visit Summaryon 0 03-17-2023 Ambulatory Visit Summary MILAN CAMARILLO :1950 Visit Date:03/17/2023 Ambulatory Visit Instructions Your Diagnosis Hypertension Type 2 diabetes mellitus without complication, without long-term current use of insulin COPD without exacerbation HLD (hyperlipidemia) GERD (gastroesophageal reflux disease) BMI 36.0-36.9,adult Class 1 obesity due to excess calories in adult Your Care Team Attending Physician - Raegan March MD Primary Care Physician - Raegan March MD This Is Your Medications List albuterol (Albuterol (Eqv-ProAir HFA) 90 mcg/inh inhalation aerosol) albuterol (albuterol 0.083% Inh Mary 3 mL) aspirin (aspirin 81 mg Oral EC Tab) atenolol (atenolol 50 mg Tab) atorvastatin (atorvastatin 40 mg Tab) cholecalciferol (Vitamin D3 2000 intl units) famotidine (Pepcid 20 mg Tab) furosemide (furosemide 20 mg Tab) glipiZIDE (glipiZIDE 2.5 mg ER Tab) ibuprofen (ibuprofen 200 mg Tab) imipramine (imipramine 50 mg oral tablet) irbesartan (irbesartan 75 mg Tab) metformin (metformin 500 mg Tab) olodaterol-tiotropium (Stiolto Respimat 2.5 mcg-2.5 mcg inhalation aerosol) omega-3 polyunsaturated fatty acids (Fish Oil 1000 mg oral capsule) ropinirole (ropinirole 0.5 mg Tab) tamsulosin (tamsulosin 0.4 mg Cap) terazosin (terazosin 2 mg Cap) Procedures Performed TURP - Transurethral resection of prostate (12/21/2021), Colonoscopy (01/10/2021), EGD - Esophagogastroduodenos copy (01/10/2021), Cystourethroscopy with dilation of urethral stricture (05/07/2017), Brachytherapy (09/19/2016), TURP - Transurethral resection of prostate (04/11/2016), Cystoscopy (04/02/2016), Transrectal biopsy of prostate using ultrasound (US) guidance (07/04/2015), Appendectomy, External beam radiotherapy, Procedure on back. Discharge Vitals Temperature (Oral) 36.4 ?C Heart Rate (Peripheral) 56 Respiratory Rate 14 Blood Pressure 116/68 Height 188 cm Height 74 in Weight 127.9 kg Weight 281.38 lb BMI 36.19 What to do next Scheduled Follow-Up Appointments Friday 9:15 AM EDT With: ALLIE CHOPRA, Jeremy Avery Where: [facility] Invalid Interpretation Code [address] [place] [address]- \.br\ Someone Will Contact You Regarding These Appointments\.br\ [facility] [place], Service not offered at [facility] [place], 03/17/23 11:38:00 EDT, Hypertension [facility] CHEMISTRYOrdered By: SYSTEM SYSTEM on 03-17-2023 Prostate specific Ag [Mass/Vol] ng/mL Normal 0.1 - 3.5 ng/mL [facility] [place] Family Medicine Office/Clini c Noteon 03-17-2023 Family Medicine Office/Clinic Note HPI Staff Milan is a 72 year old male presenting for 2 month follow up htn and dm Do you have any of the following symptoms? Foot Exam: due today Eye Exam: UTD Last A1C: Hgb A1c POC: 5.4 % (12/30/22 07:35:00) Statin: atorvastatin 40mg Patient is here for follow up on hypertension. How often are you checking your blood pressure? occasionally_ What are your average readings? 116/70 _ Yearly BMP: 08/26/22 flu: wants to wait til late March questions/concerns: gets bad heartburn ice water takes it away, wondered if you could prescribe something for him Just saw Dr Kelley and had PSA drawn today History of Present Illness Here for follow up. No concerns today BS is WNL BPs have been wnl. Has GERD symptoms. Wants a PRN med. Review of Systems PHQ Score Initial Depression Screen Score: 0 Physical Exam Vitals & Measurements T: 36.4 ?C(Oral) HR: 56(Peripheral) RR: 14 BP: 116/68 SpO2: 92% HT: 74 in HT: 188 cm WT: 127.9 kg WT: 281.38 lb BMI: 36.19 General: alert, no acute distress ENMT: oral mucosa moist, Cardiovascular: regular rate and rhythm, normal peripheral perfusion Respiratory: Lungs CTA, respirations non labored Extremities: no deformity, no trauma Neurological: oriented x 4, LOC appropriate for age, CN II-XII intact, motor strength equal & normal bilaterally, speech normal Abdomen: Soft, Nontender, Non-distended, + BS Diabetic Foot Exam Decreased Monofilament Sensation Foot: Left - Normal, Right - Normal Bunions/Foot Deformity: Left - Abnormal, Right - Abnormal Abnormal Pulse Foot: Left - Normal, Right - Normal Skin Lesions Foot: Left - Normal, Right - Normal Foot Exam Findings: Callus formation with some foot deformities Assessment/Plan 1. Hypertension (I10: Essential (primary) hypertension) - At goal today. - Continue on meds as before Ordered: famotidine, 20 mg = 1 tab(s), Oral, BID, PRN for GERD symptoms, # 60 tab(s), Refills(s) 0, [id number], 188, cm, 03/17/23 11:18:00 EDT, Height/Length Dosing, 127.9, kg, 03/17/23 11:18:00 EDT, Weight Dosing Body Mass Index (BMI) documented 3008F Current tobacco non-user 1036F Depression Screening Negative 3352F [facility] [place] Influenza immunization status assessed 1030F Most recent diastolic blood pressure <80 mm Hg 3078F Spirometry test results demonstrate FEV/FVC > or = 70% or patient does not have COPD 3027F Systolic BP <130 mm Hg (Most Recent) 3074F 2. Type 2 diabetes mellitus without complication, without long-term current use of insulin (E11.9: Type 2 diabetes mellitus without complications) - Foot exam showed callus. - Will send to podiatry - POC A1c today - Reviewed labs - WNL Ordered: azithromycin, 500 mg = 1 tab(s), Oral, Daily, # 3 tab(s), Refills(s) 0, [id number], 188, cm, 03/03/23 14:16:00 EDT, Height/Length Dosing, 127.2, kg, 03/03/23 14:16:00 EDT, Weight Dosing famotidine, 20 mg = 1 tab(s), Oral, BID, PRN for GERD symptoms, # 60 tab(s), Refills(s) 0, [facility]: [id number], 188, cm, 03/17/23 11:18:00 EDT, Height/Length Dosing, 127.9, kg, 03/17/23 11:18:00 EDT, Weight Dosing Body Mass Index (BMI) documented 3008F Current tobacco non-user 1036F Depression Screening Negative 3352F [facility] [place] Influenza immunization status assessed 1030F Most recent diastolic blood pressure <80 mm Hg 3078F Spirometry test results demonstrate FEV/FVC > or = 70% or patient does not have COPD 3027F Systolic BP <130 mm Hg (Most Recent) 3074F 3. COPD without exacerbation (J44.9: Chronic obstructive pulmonary disease, unspecified) - Will monitor - No issues today Ordered: famotidine, 20 mg = 1 tab(s), Oral, BID, PRN for GERD symptoms, # 60 tab(s), Refills(s) 0, Pharmacy: [id number], 188, cm, 03/17/23 11:18:00 EDT, Height/Length Dosing, 127.9, kg, 03/17/23 11:18:00 EDT, Weight Dosing Body Mass Index (BMI) documented 3008F Current tobacco non-user 1036F Depression Screening Negative 3352F [facility] [place] Influenza immunization status assessed 1030F Most recent diastolic blood pressure <80 mm Hg 3078F Spirometry test results demonstrate FEV/FVC > or = 70% or patient does not have COPD 3027F Systolic BP <130 mm Hg (Most Recent) 3074F 4. HLD (hyperlipidemia) (E78.5: Hyperlipidemia, unspecified) - Continue on a statin Ordered: famotidine, 20 mg = 1 tab(s), Oral, BID, PRN for GERD symptoms, # 60 tab(s), Refills(s) 0, Pharm[facility]: [id number], 188, cm, 03/17/23 11:18:00 EDT, Height/Length Dosing, 127.9, kg, 03/17/23 11:18:00 EDT, Weight Dosing Body Mass Index (BMI) documented 3008F Current tobacco non-user 1036F Depression Screening Negative 3352F [facility] [place] Influenza immunization status assessed 1030F Most recent diastolic blood pressure <80 mm Hg 3078F Spirometry test results demonstrate FEV/FVC > or = 70% or patient does not have COPD 3027F Systolic BP <130 (more content not included)... Normal [facility] Comment on above: Result Comment: Elec tronically Signed By: Erasmo CHOPRA, Raegan Adler\.br\Date and Time Signed: 03/17/23 11:48 EDT PSA Totalon 03-17-2023 Prostate specific Ag [Mass/Vol] ng/mL Normal 0.1-3.5 [facility] Comment on above: Result Comment: The concentration of PSA determined by different manufacturers can vary due to differences in assay methods and reagent specificity. Values obtained from different assay methods cannot be used interchangeably. The methodology used for this result was chemiluminescence using [employer] PSA reagent. Performed By: #### 1 [id number] ####[facility] [id number] [place] [address] Patient Educationon 03-17-20 Patient Education Oncology Cancer Screening for Men A cancer screening is a test or exam that checks for cancer. Your health care provider will recommend specific cancer screenings based on your age, medical history (including risk factors), and family history of cancer. Work with your health care provider to create a cancer screening schedule that protects your health. Who should have screening? All men should be considered for screening of certain cancers, including colorectal cancer, prostate cancer, lung cancer, and skin cancer. Your health care provider may recommend screenings for other types of cancer if: ? You had cancer before. ? You have a family member with cancer. ? You have abnormal genes that could increase the risk of cancer. ? You have risk factors for certain cancers, such as current or past use of tobacco products, or being overweight. When you should be screened for cancer depends on: ? Your age. ? Your medical history and your family's medical history. ? Certain lifestyle factors, such as smoking or other use of tobacco products. ? Environmental exposure, such as to asbestos. How is screening done? Colorectal cancer All adults should have screenings starting at age 45 and continuing until age 75. Your health care provider may recommend screening before age 45. You will have tests every 1?10 years, depending on your results and the type of screening test. People at increased risk should start screening at an earlier age. Talk with your health care provider about which screening test is right for you and how often you should be screened. Colorectal cancer screening looks for cancer or for growths called polyps that often form before cancer starts. Tests to look for cancer or polyps include: ? Colonoscopy or flexible sigmoidoscopy. For these procedures, a flexible tube with a small camera is inserted into the rectum. ? CT colonography. This test uses X-rays and a contrast dye to check the colon for polyps. If a polyp is found, you may need to have a colonoscopy so the polyp can be located and removed. Tests to look for cancer in the stool (feces) include: ? Guaiac-based fecal occult blood test (FOBT). This test can find blood in stool. It can be done at home with a kit. ? Fecal immunochemical test (FIT). This test can find blood in stool. For this test, you will need to collect stool samples at home. ? Stool DNA test. This test looks for blood in stool and any changes in DNA that can lead to colon cancer. For this test, you will need to collect a stool sample at home and send it to a lab. Prostate cancer Prostate cancer screening for men with average risk may start at age 50. Men with risk factors may need to be screened earlier, at ages 40?45. Talk with your health care provider about whether screening is right for you and, if so, how often you should be screened. Prostate cancer screening is done with blood tests and a digital rectal exam. During this exam, a health care provider uses a gloved finger to check prostate size. You may need to be screened for prostate cancer if: ? You have risk factors for prostate cancer, such as being or having a close family member with prostate cancer. ? You have had gene changes or a genetic condition that was passed on to you from a parent (inherited). These gene changes or genetic conditions include BRCA1 or BRCA2 gene mutations or Johnson syndrome. ? You have symptoms of prostate cancer, such as problems urinating or problems getting or keeping an erection (erectile dysfunction). When you have been screened for prostate cancer, future screening may be recommended based on the results of your blood tests. Lung cancer Lung cancer screening is done with a CT scan that looks for abnormal changes in the lungs. Discuss lung cancer screening with your health care provider if you are 50?80 years old and if any of the following apply to you: ? You currently smoke. ? You used to smoke heavily. ? You have a smoking history of 1 pack of cigarettes a day for 20 years or 2 packs a day for 10 years. ? You have quit smoking within the past 15 years. You may need to be screened every year if you smoke heavily or if you used to smoke. Skin cancer Skin cancer screening is done by checking the skin for unusual moles or spots and any changes in existing moles. Your health care provider should check your skin for signs of skin cancer at every physical exam. You should check your skin every month and tell your health care provider right away if anything looks unusual. Men with a sosjgc-tyzj-tsnjsz risk for skin cancer may want to see a audio visual specialist (account support manager) for an annual body check. What are the benefits of screening? Cancer screening is done to look for cancer in the very early stages, before it spreads and becomes harder to treat and before you would start to notice symptoms. Finding cancer early improves the chances of successful treatment. It ma (more content not included)... Normal [facility] Urology Office/Clinic Noteon 03-17-2023 Urology Office/Clinic Note Chief Complaint 3m HPI Staff 72 yo male here for 3 month f/u. Previous DX: hx of prostate ca, BPH with obstruction, incomplete bladder emptying, UTI sxs, chronic prostatitis, hx of pyelonephritis, bilateral flank pain. S/p TURP done 12/21/21 and 04/11/16, TRUS/bx done 07/04/15. EBRT done 2016. *Tamsulosin 0.4mg BID & Terazosin 2mg qd therapy. Was also started on Augmentin 875mg qd #60. PVR 750ml CIC increased to 3x/day, recommended at time of last encounter. Denies complications. States he has had a couple UTI's since last encounter. Tx'd by PCP. No culture performed. Denies current pain/burning & visible blood in urine. 1-2x/night. q2hrs during the day. Gets the urge to void. CIC morning noon and night. Getting >20oz each time. Denies any concerns at this time. History of Present Illness Tests reviewed: reviewed UA I have reviewed the previous health record information and history for this patient from Dr. Kelley. I have reviewed and verified the staff HPI to be accurate for this encounter. There have been no associated fever, chills, flank pain, or blood in the urine. Denies any urinary infections since last encounter. Review of Systems PHQ Score Initial Depression Screen Score: 0 ROS - Provider Constitutional: denies weight loss, denies hot flashes. Eyes: denies eye problems. Gastrointestinal: denies nausea, denies vomiting. Cardiovascular: denies chest pain or angina. Integumentary: no dryness Musculoskeletal: denies musculoskeletal symptoms. ENMT: denies otolaryngeal symptoms. Respiratory: no shortness of breath. Heme/Lymph: denies easy bleeding tendency, denies easy bruising tendency. Psychiatric: no confusion, no anxiety. Genitourinary: See HPI. Physical Exam Vitals & Measurements HR: 57(Peripheral) RR: 16 BP: 140/79 HT: 74 in HT: 188 cm WT: 127 kg WT: 279.4 lb BMI: 35.93 General Appearance: alert, no distress, well nourished, well developed male. Genitourinary: normal scrotum, normal testes, normal urethra, normal epididymis, normal vas deferens/spermatic cord. Flank Pain: none. Bladder: nonpalpable. Assessment/Plan 1. History of prostate cancer (Z85.46: Personal history of malignant neoplasm of prostate) PSA: 08/26/22 - <0.13 04/25/23 - <0.1 TRUS/bx 07/04/15. EBRT 2017. S/p Brachytherapy 2017. No longer follows with Dr. Burgess. Follow up 6 mos with PSA or sooner if needed. Pt understands and agrees with plan. -Draw PSA IO today for current PSA. 2. BPH with urinary obstruction (N40.1: Benign prostatic hyperplasia with lower urinary tract symptoms) S/p TURP 12/21/21 at [facility] by Dr. Ram - Path showed BPH and radiation effect. Small focus of atypical glands with radiation effect. Taking Tamsulosin 0.4 mg bid and Terazosin 2 mg qd. 3. Incomplete bladder emptying (R33.9: Retention of urine, unspecified) PVR (cc): S/p TURP 12/21/21. 12/09/22 - >999 12/09/22 - 746 repeat after end void 03/17/23 - 750 Pt was to increase CIC to at least TID at prior OV. He does CIC 2-3x/day and voids in between. Was told at F he would no longer have to CIC after TURP. -Will refills caths for QID so pt has plenty. Cont CIC at least 2-3x/day. 4. Chronic prostatitis (N41.1: Chronic prostatitis) Completed Augmentin 875 mg qd x 60 ct from prior encounter. UA today negative for blood and infection. Just finished Z pack. One UTI since prior encounter. Treated by Dr. March. Follow-up With When Contact Information ALLIE CHOPRA, Jeremy Avery, [facility] [address], [place] [address]- [phone] Additional Instructions: 6 mos with PSA Patient Education Cancer Screening for Men I, Ita Orozco, personally scribed for Dr. Kelley on 03/17/2023 09:39:41. . Documentation recorded by the scribe, Ita Orozco, accurately reflects the services(s) I performed and decisions made by me. Authenticated by Dr. Kelley on 03/17/2023 09:50:50. Problem List/Past Medical History Ongoing Acute URI Arthritis Back pain Benign paroxysmal positional vertigo, unspecified laterality Bilateral flank pain BPH with urinary obstruction Chronic prostatitis Former smoker Gross hematuria History of prostate cancer History of pyelonephritis Hyperlipidemia Hypertension Impotence Incomplete bladder emptying Intermittent self-catheterization of bladder Left varicocele Microscopic hematuria Non-smoker Pyelonephritis Renal mass Scrotal swelling Type 2 diabetes mellitus without complication, without long-term current use of insulin Historical No qualifying data Procedure/Surgical History TURP - Transurethral resection of prostate (12/21/2021), Colonoscopy (01/10/2021), EGD - Esophagogastroduodenos copy (01/10/2021), Cystourethroscopy with dilation of urethral stricture (05/07/2017), Brachytherapy (09/19/2016), TURP - Transurethral resection of prostate (04/11/2016), Cystoscopy ( (more content not included)... [facility] Comment on above: Result Comment: Elec tronically Signed By: ALLIE CHOPRA, Jeremy Avery\.br\Date and Time Signed: 03/17/23 09:50 EDT\.br\Electronically Co-Signed By: Ita Orozco\.br\Date and Time Co-Signed: 03/17/23 09:40 EDT\.br\Electronically Co-Signed By: Ita Orozco\.br\Date and Time Co-Signed: 03/17/23 09:42 EDT Consultation Noteon 03-12-20 Consultation Note [id number] CD:127 [facility] Insurance Correspondence Off iceon 03-05-2023 Insurance Correspondence Office [id number] CD:127 [facility] Physician Referralon 023 Physician Referral [id number] 21 [id number] 0CD:127 [facility] Family Medicine Office/Clini c Noteon 03-03-2023 Family Medicine Office/Clinic Note HPI Staff Yates is a 72 year old male presenting for acute sick visit _Respiratory C/O: Duration: 2 weeks ago started out as sinus symptoms had went away then came back within the last 2 days having increased SOB, extremly dry mouth Body aches: no Chest congestion: yes Chills: no Cough: yes Ear complaints: no Eye itching/watering: no Fever: no Headache: no Nasal congestion: yes Nasal discharge: yes yellow/green Poor appetite: yes Reduced activity: yes Sinus pain/pressure: yes Sneezing: no Sputum production: yes green Wheezing: yes Ill contacts: no Remedies tried: has been taking cough suppressant and Coricidin cough and cold History of Present Illness - Please see staff HPI. Review of Systems PHQ Score Initial Depression Screen Score: 0 Physical Exam Vitals & Measurements T: 36.7 ?C(Oral) HR: 56(Peripheral) RR: 18 BP: 130/84 SpO2: 94% HT: 74 in HT: 188 cm WT: 127.2 kg WT: 279.84 lb BMI: 35.99 General: alert, no acute distress ENMT: oral mucosa moist, Cardiovascular: regular rate and rhythm, normal peripheral perfusion Respiratory: Lungs CTA, respirations non labored Extremities: no deformity, no trauma Neurological: oriented x 4, LOC appropriate for age, CN II-XII intact, motor strength equal & normal bilaterally, speech normal Abdomen: Soft, Nontender, Non-distended, + BS Assessment/Plan 1. Acute URI (J06.9: Acute upper respiratory infection, unspecified) - Will do steroids and azithromycin - Will send to ENT as this is multiple Ordered: azithromycin, 500 mg = 1 tab(s), Oral, Daily, # 3 tab(s), Refills(s) 0, Pharmacy: [facility]/pharmacy #[id number], 188, cm, 03/03/23 14:16:00 EDT, Height/Length Dosing, 127.2, kg, 03/03/23 14:16:00 EDT, Weight Dosing azithromycin, 500 mg = 1 tab(s), Oral, Daily, # 3 tab(s), Refills(s) 0, Pharmacy: [facility]/pharmacy #[id number], 188, cm, 01/13/23 14:24:00 EDT, Height/Length Dosing, 127.1, kg, 01/13/23 14:24:00 EDT, Weight Dosing methylPREDNISolone, = 1 packet(s), Oral, As Directed, as directed on package labeling, X 6 day(s), # 21 tab(s), Refills(s) 0, [id number], cm, 03/03/23 14:16:00 EDT, Height/Length Dosing, 127.2, kg, 03/03/23 14:16:00 EDT, [place] [facility] [place] Influenza Type A&B POC 90590 Rapid COVID POC 79035 2. Type 2 diabetes mellitus without complication, without long-term current use of insulin (E11.9: Type 2 diabetes mellitus without complications) - Discussed the use of steroids in a T2DM - Will monitor - Pt is well controlled Ordered: azithromycin, 500 mg = 1 tab(s), Oral, Daily, # 3 tab(s), Refills(s) 0, [id number] 188, cm, 03/03/23 14:16:00 EDT, Height/Length Dosing, 127.2, kg, 03/03/23 14:16:00 EDT, Weight Dosing methylPREDNISolone, = 1 packet(s), Oral, As Directed, as directed on package labeling, X 6 day(s), # 21 tab(s), Refills(s) 0, [id number] 188, cm, 03/03/23 14:16:00 EDT, Height/Length Dosing, 127.2, kg, 03/03/23 14:16:00 EDT, [place] Dosing [facility] [place] Influenza Type A&B POC 32533 Rapid COVID POC 37570 3. BMI 35.0-35.9,adult (Z68.35: Body mass index [BMI] 35.0-35.9, adult) - BMI education given. Ordered: azithromycin, 500 mg = 1 tab(s), Oral, Daily, # 3 tab(s), Refills(s) 0, [id number] 188, cm, 03/03/23 14:16:00 EDT, Height/Length Dosing, 127.2, kg, 03/03/23 14:16:00 EDT, Weight Dosing azithromycin, 500 mg = 1 tab(s), Oral, Daily, # 3 tab(s), Refills(s) 0, [id number] 188, cm, 01/13/23 14:24:00 EDT, Height/Length Dosing, 127.1, kg, 01/13/23 14:24:00 EDT, Weight Dosing methylPREDNISolone, = 1 packet(s), Oral, As Directed, as directed on package labeling, X 6 day(s), # 21 tab(s), Refills(s) 0, [id number] 188, cm, 03/03/23 14:16:00 EDT, Height/Length Dosing, 127.2, kg, 03/03/23 14:16:00 EDT, [place] Dosing [facility] [place] Influenza Type A&B POC 88842 Rapid COVID POC 08723 4. Former smoker (Z87.891: Personal history of nicotine dependence) - Please continue not to smoke. Ordered: azithromycin, 500 mg = 1 tab(s), Oral, Daily, # 3 tab(s), Refills(s) 0, [id number] 188, cm, 03/03/23 14:16:00 EDT, Height/Length Dosing, 127.2, kg, 03/03/23 14:16:00 EDT, Weight Dosing methylPREDNISolone, = 1 packet(s), Oral, As Directed, as directed on package labeling, X 6 day(s), # 21 tab(s), Refills(s) 0, Pharmacy: [facility]/pharmacy #[id number], 188, cm, 03/03/23 14:16:00 EDT, Height/Length Dosing, 127.2, kg, 03/03/23 14:16:00 EDT, Weight Dosing [facility] [place]ulatory Referral Influenza Type A&B POC 94830 Rapid COVID POC 67511 Follow-up No qualifying data available Problem List/Past Medical History Ongoing Acute URI Arthritis Back pain Benign paroxysmal positional vertigo, unspecified laterality BPH with urinary obstruction Chronic prostatitis Former smoker Gross hematuria History of prostate cancer History of pyelonep (more content not included)... Normal [facility] Comment on above: Result Comment: Elec tronically Signed By: Erasmo CHOPRA, Raegan Parker.br\Date and Time Signed: 03/03/23 14:45 EDT Retail - Clinical Noteon Retail - Clinical Note [id number] CD:127 Normal [facility] Retail - Clinical Noteon Retail - Clinical Note [id number] 0CD:127 Normal [facility] Ambulatory Visit Summaryon 0 01-13-2023 Ambulatory Visit Summary MILAN CAMARILLO :1950 Visit Date:01/13/2023 Ambulatory Visit Instructions Your Diagnosis BMI 35.0-35.9,adult Class 1 obesity due to excess calories in adult Acute URI Your Care Team Attending Physician - Raegan March MD Primary Care Physician - Raegan March MD This Is Your Medications List albuterol (Albuterol (Eqv-ProAir HFA) 90 mcg/inh inhalation aerosol) albuterol (albuterol 0.083% Inh Mary 3 mL) amoxicillin-clavulanat e (amoxicillin-clavulana te 875 mg-125 mg Tab) aspirin (aspirin 81 mg Oral EC Tab) atenolol (atenolol 50 mg Tab) atorvastatin (atorvastatin 40 mg Tab) cholecalciferol (Vitamin D3 2000 intl units) furosemide (furosemide 20 mg Tab) glipiZIDE (glipiZIDE 2.5 mg ER Tab) ibuprofen (ibuprofen 200 mg Tab) imipramine (imipramine 50 mg oral tablet) irbesartan (irbesartan 75 mg Tab) metformin (metformin 500 mg Tab) olodaterol-tiotropium (Stiolto Respimat 2.5 mcg-2.5 mcg inhalation aerosol) omega-3 polyunsaturated fatty acids (Fish Oil 1000 mg oral capsule) ropinirole (ropinirole 0.5 mg Tab) tamsulosin (tamsulosin 0.4 mg Cap) terazosin (terazosin 2 mg Cap) Procedures Performed TURP - Transurethral resection of prostate (12/21/2021), Colonoscopy (01/10/2021), EGD - Esophagogastroduodenos copy (01/10/2021), Cystourethroscopy with dilation of urethral stricture (05/07/2017), Brachytherapy (09/19/2016), TURP - Transurethral resection of prostate (04/11/2016), Cystoscopy (04/02/2016), Transrectal biopsy of prostate using ultrasound (US) guidance (07/04/2015), Appendectomy, External beam radiotherapy, Procedure on back. Discharge Vitals Temperature (Oral) 36.3 ?C Heart Rate (Peripheral) 66 Respiratory Rate 16 Blood Pressure 138/82 Height 188 cm Height 74 in Weight 127.1 kg Weight 279.62 lb BMI 35.96 What to do next Scheduled Follow-Up Appointments Friday 8:45 AM EDT With: ALLIE CHOPRA, Jeremy Avery Where: [facility] Invalid Interpretation Code [address] [place] [address]- \.br\ Friday 8:00 AM EDT \.br\ With:\.br\ Where: [facility] Medicine [facility] Family Medicine Office/Clini c Noteon 01-13-2023 Family Medicine Office/Clinic Note Chief Complaint cough & congestion HPI Staff Patient presents with a cough/congestion _Respiratory C/O: Duration: 4 days ago_ Body aches: yes Chest congestion: yes Chills: no Cough: yes Ear complaints: no Eye itching/watering: yes little itchy Fever: no Headache: yes Nasal congestion: yes Nasal discharge: yes colored Poor appetite: no Reduced activity: yes Sinus pain/pressure: yes pressure Sneezing: no Sputum production: no Wheezing: yes Ill contacts: no Remedies tried: coriciden cough and cold and asa _ _ questions/concerns: none, has augmentin from dr kelley and he's currently on it and then out of the medrol dosepak you gave him before and it really helped with hips and joint pain History of Present Illness - See staff HPI Review of Systems PHQ Score Initial Depression Screen Score: 0 Physical Exam Vitals & Measurements T: 36.3 ?C(Oral) HR: 66(Peripheral) RR: 16 BP: 138/82 SpO2: 93% HT: 74 in HT: 188 cm WT: 127.1 kg WT: 279.62 lb BMI: 35.96 General: alert, no acute distress ENMT: oral mucosa moist, Cardiovascular: regular rate and rhythm, normal peripheral perfusion, Diminished Respiratory: Lungs expiratory wheezes, respirations non labored Extremities: no deformity, no trauma Neurological: oriented x 4, LOC appropriate for age, CN II-XII intact, motor strength equal & normal bilaterally, speech normal Abdomen: Soft, Nontender, Non-distended, + BS Assessment/Plan 1. Acute URI (J06.9: Acute upper respiratory infection, unspecified) - At this time I will give the patient Abx. Advised him that with the steroids he should be careful with his BS. Pt should monitor his BS and we need to cut down how often he gets steroids. Advised use of other meds. Ordered: azithromycin, 500 mg = 1 tab(s), Oral, Daily, # 3 tab(s), Refills(s) 0, Pharmacy: [facility]/pharmacy #[id number], 188, cm, 01/13/23 14:24:00 EDT, Height/Length Dosing, 127.1, kg, 01/13/23 14:24:00 EDT, Weight Dosing methylPREDNISolone, = 1 packet(s), Oral, As Directed, as directed on package labeling, X 6 day(s), # 21 tab(s), Refills(s) 0, Pharmacy: [facility]/pharmacy #[id number], 188, cm, 01/13/23 14:24:00 EDT, Height/Length Dosing, 127.1, kg, 01/13/23 14:24:00 EDT, Weight Dosing 2. BMI 35.0-35.9,adult (Z68.35: Body mass index [BMI] 35.0-35.9, adult) - BMI Ordered: azithromycin, 500 mg = 1 tab(s), Oral, Daily, # 3 tab(s), Refills(s) 0, [id number], 188, cm, 01/13/23 14:24:00 EDT, Height/Length Dosing, 127.1, kg, 01/13/23 14:24:00 EDT, Weight Dosing methylPREDNISolone, = 1 packet(s), Oral, As Directed, as directed on package labeling, X 6 day(s), # 21 tab(s), Refills(s) 0, Pharmacy: [facility]/pharmacy #[id number], 188, cm, 01/13/23 14:24:00 EDT, Height/Length Dosing, 127.1, kg, 01/13/23 14:24:00 EDT, Weight Dosing Body Mass Index (BMI) documented 3008F Current tobacco non-user 1036F Depression Screening Negative 3352F Influenza immunization administered or previously received 4274F Most recent diastolic blood pressure 80-89 mm Hg 3079F Patient screen for fall risk: no falls in last year or 1 fall with no injury in last year 1101F Systolic BP 130-139 mm Hg (Most Recent) 3075F 3. Class 1 obesity due to excess calories in adult (E66.09: Other obesity due to excess calories) - Education as above. Ordered: azithromycin, 500 mg = 1 tab(s), Oral, Daily, # 3 tab(s), Refills(s) 0, Pharmacy: [facility]/pharmacy #[id number], 188, cm, 01/13/23 14:24:00 EDT, Height/Length Dosing, 127.1, kg, 01/13/23 14:24:00 EDT, Weight Dosing methylPREDNISolone, = 1 packet(s), Oral, As Directed, as directed on package labeling, X 6 day(s), # 21 tab(s), Refills(s) 0, Pharmacy: [facility]/pharmacy #[id number], 188, cm, 01/13/23 14:24:00 EDT, Height/Length Dosing, 127.1, kg, 01/13/23 14:24:00 EDT, Weight Dosing Body Mass Index (BMI) documented 3008F Current tobacco non-user 1036F Depression Screening Negative 3352F Influenza immunization administered or previously received 4274F Most recent diastolic blood pressure 80-89 mm Hg 3079F Patient screen for fall risk: no falls in last year or 1 fall with no injury in last year 1101F Systolic BP 130-139 mm Hg (Most Recent) 3075F Follow-up No qualifying data available Problem List/Past Medical History Ongoing Acute URI Arthritis Back pain Benign paroxysmal positional vertigo, unspecified laterality BPH with urinary obstruction Chronic prostatitis Former smoker Gross hematuria History of prostate cancer History of pyelonephritis Hyperlipidemia Hypertension Impotence Incomplete bladder emptying Intermittent self-catheterization of bladder Left varicocele Microscopic hematuria Non-smoker Pyelonephritis Renal mass Scrotal swelling Type 2 diabetes mellitus without complication, without long-term current use of insulin Historical No qualifying data Procedure/Surgical History TURP - Transurethral resection of prostate (12/21/2021), Colonoscopy (01/10/2021), EGD - Esophagogastroduodenos c (more content not included)... Normal [facility] Comment on above: Result Comment: Elec tronically Signed By: Raegan March MD\.br\Date and Time Signed: 01/13/23 14:44 EDT Ambulatory Visit Summaryon 0 12-30-2022 Ambulatory Visit Summary RABIAMILAN Horowitz :1950 Visit Date:12/30/2022 Ambulatory Visit Instructions Your Diagnosis Hypertension Hyperlipidemia Arthritis Type 2 diabetes mellitus without complication, without long-term current use of insulin BMI 36.0-36.9,adult Obesity due to excess calories Your Care Team Attending Physician - Raegan March MD Primary Care Physician - Raegan March MD This Is Your Medications List albuterol (Albuterol (Eqv-ProAir HFA) 90 mcg/inh inhalation aerosol) albuterol (albuterol 0.083% Inh Mary 3 mL) amoxicillin-clavulanat e (amoxicillin-clavulana te 875 mg-125 mg Tab) aspirin (aspirin 81 mg Oral EC Tab) atenolol (atenolol 50 mg Tab) atorvastatin (atorvastatin 40 mg Tab) cholecalciferol (Vitamin D3 2000 intl units) furosemide (furosemide 20 mg Tab) glipiZIDE (glipiZIDE 2.5 mg ER Tab) ibuprofen (ibuprofen 200 mg Tab) imipramine (imipramine 50 mg oral tablet) irbesartan (irbesartan 75 mg Tab) metformin (metformin 500 mg Tab) olodaterol-tiotropium (Stiolto Respimat 2.5 mcg-2.5 mcg inhalation aerosol) omega-3 polyunsaturated fatty acids (Fish Oil 1000 mg oral capsule) ropinirole (ropinirole 0.5 mg Tab) tamsulosin (tamsulosin 0.4 mg Cap) terazosin (terazosin 2 mg Cap) Procedures Performed TURP - Transurethral resection of prostate (12/21/2021), Colonoscopy (01/10/2021), EGD - Esophagogastroduodenos copy (01/10/2021), Cystourethroscopy with dilation of urethral stricture (05/07/2017), Brachytherapy (09/19/2016), TURP - Transurethral resection of prostate (04/11/2016), Cystoscopy (04/02/2016), Transrectal biopsy of prostate using ultrasound (US) guidance (07/04/2015), Appendectomy, External beam radiotherapy, Procedure on back. Discharge Vitals Heart Rate (Peripheral) 63 Blood Pressure 124/78 Height 188 cm Height 74 in Weight 127.4 kg Weight 280.28 lb BMI 36.05 What to do next Scheduled Follow-Up Appointments Friday 8:45 AM EDT With: ALLIE CHOPRA, Jeremy Avery Where: [facility] Invalid Interpretation Code [address] [place] [address]- \.br\ You Need to Complete the Following\.br\ Microalbumin Level Urine, Urine, Routine collect, 12/30/22, Order for future visit, Nurse collect, Hypertension [facility] Family Medicine Office/Clini c Noteon 12-30-2022 Family Medicine Office/Clinic Note HPI Staff 3 month follow up htn Patient is here for follow up on hypertension. How often are you checking your blood pressure? couple times weekly What are your average readings? 120's/70's Do you have any of the following symptoms? Chest Pain? no Palpitations? no BLEVINS/SOB? no Headache? no Peripheral Edema? no Light Headedness? no Yearly BMP: September 2022 Refill needed?: no questions/concerns: none History of Present Illness Milan Camarillo is a 72-year-old male who presents today for a follow-up evaluation. He has a history of hypertension. His blood pressure is well controlled today. He has a history of diabetes. He is currently taking metformin. There was one time that his blood glucose was over 800 mg/dL. He was taken to the hospital right away and his blood glucose came down within a day or so. He does not check his blood glucose at home anymore. He states that if he feels lightheaded, he will check his blood glucose and it will be a little high or low. He will eat a candy bar and his blood glucose will be fine. He has had an eye exam this year. Dr. Jiménez started him on a medication for an infection in his urine. He has been experiencing pain in his kidneys, his back and all over his body. He states that it is not spasms because it is continuous. His arthritis is going bad and it is affecting his hands. His both hands are very tender. He has not tried anything for his hands because he did not know what to put on. He has been applying ice and a roll on stuff that gives heat at night which alleviates the pain. He has a lot of pain in his right hip. He can hardly put his sock on anymore. He has lidocaine patches in his knee. He broke his back in the past.He has seen pain management in the past and is now unable to to get needle in his back anymore. He has been to a lot of doctors and different specialists for his back pain. He states that sometimes he can hardly walk. He has received injections in the past. The first injection worked, but the rest of it is running. The third injection could not vent a needle. 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 He states that on the second day he can hardly make it to the third day. Review of Systems PHQ Score Initial Depression Screen Score: 0 Physical Exam Vitals & Measurements HR: 63(Peripheral) BP: 124/78 SpO2: 94% HT: 74 in HT: 188 cm WT: 127.4 kg WT: 280.28 lb BMI: 36.05 General: alert, no acute distress ENMT: oral mucosa moist, no pharyngeal erythema or exudate Cardiovascular: regular rate and rhythm, normal peripheral perfusion Respiratory: Lungs CTA, respirations non labored Extremities: no deformity, no trauma Neurological: oriented x 4, LOC appropriate for age, CN II-XII intact, motor strength equal & normal bilaterally, speech normal Assessment/Plan 1. Hypertension (I10: Essential (primary) hypertension) Patient is at goal today. We will continue on medications before. 2. Hyperlipidemia (E78.5: Hyperlipidemia, unspecified) Continue on a statin. Cholesterol at last lab work looked very good. Patient continues to be on Lipitor 40 mg. If patient needs a refill, he will call us and let us know. 3. Arthritis (M19.90: Unspecified osteoarthritis, unspecified site) Patient has already tried multiple medications at this time. If patient continues to have pain and his A1c is within normal limits, we will give him a dose of Medrol Dosepak to help with this intermittent arthritis pain. 4. Type 2 diabetes mellitus without complication, without long-term current use of insulin (E11.9: Type 2 diabetes mellitus without complications) We will do an A1c today. If the patient's A1c is within normal limits, we will keep him on his medication. If it is abnormal, we will adjust. We will also do a microalbumin and a urine protein creatinine ratio. Patient has already had an eye exam at this time and we will do a foot exam at the next visit. 5. BMI 36.0-36.9,adult (Z68.36: Body mass index [BMI] 36.0-36.9, adult) 6. Obesity due to excess calories (E66.09: Other obesity due to excess calories) We will see the patient in the next 3 to 6 months. Portions of this record may have been created with voice recognition artificial intelligence software, specifically [email or web address], [email or web address] and or [employer]. Substitutions may have occurred due to the inherent limitations of voice recognition and artificial intelligence software. ATTESTATION: Documentation services were performed after patient or guardian consented to allow [employer] to record this visit. 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 ANGEL:Elyssa Hess Follow-up No qualifying data available Problem List/Past Medical History Ongoing Arthritis Back pain Benign paroxysmal positional vertigo, unspecified laterality BPH with urinary obstruction Chronic prostatitis Former smoker Gross hematuria History of prostate cancer History of pyelo (more content not included)... Normal [facility] Comment on above: Result Comment: Elec tronically Signed By: Raegan March MD\.br\Date and Time Signed: 12/30/22 13:03 EDT\.br\Electronically Co-Signed By: Elyssa Hess\.br\Date and Time Co-Signed: 12/30/22 08:37 EDT\.br\Electronically Co-Signed By: Elyssa Hess\.br\Date and Time Co-Signed: 12/30/22 08:41 EDT U Microalbon 12-30-2022 Albumin DL <= 20 mg/L (U) [Mass/Vol] 10.9 microgram/mL Normal 0.0-19.0 [facility] Comment on above: Performed By: #### 2 [id number] #### [facility] [address] [place] [address] U Protein/Creat Ratioon 07 Albumin Elph (U) [Mass fraction] <6.0 Invalid Interpretation Code [facility] Comment on above: Result Comment: The reference range and other method performance specifications have not been established for this test; results should be integrated into the clinical context for interpretation. Performed By: #### 2 [id number] #### [facility] [address] [place] [address] Creatinine (U) [Mass/Vol] 23.2 mg/dL Invalid Interpretation Code [facility] Comment on above: Result Comment: The reference range and other method performance specifications have not been established for this test; results should be integrated into the clinical context for interpretation. Performed By: #### 2 [id number] #### [facility] [address] [place] [address] U Prot/Creat Ratio [facility] Invalid Interpretation Code .00-200.00 [facility] Comment on above: Performed By: #### 2 [id number] #### [facility] [address] [place] [address] Ambulatory Visit Summaryon 0 12-09-2022 Ambulatory Visit Summary MILAN CAMARILLO :1950 Visit Date:12/09/2022 Ambulatory Visit Instructions Your Diagnosis History of prostate cancer BPH with urinary obstruction Incomplete bladder emptying UTI symptoms Chronic prostatitis History of pyelonephritis Bilateral flank pain Your Care Team Attending Physician - ALLIE CHOPRA, Jeremy Avery Primary Care Physician - Erasmo CHOPRA, Raegan Adler This Is Your Medications List Contact prescribing physician if questions or concerns albuterol (Albuterol (Eqv-ProAir HFA) 90 mcg/inh inhalation aerosol) albuterol (albuterol 0.083% Inh Mary 3 mL) aspirin (aspirin 81 mg Oral EC Tab) atenolol (atenolol 50 mg Tab) atorvastatin (atorvastatin 40 mg Tab) cholecalciferol (Vitamin D3 2000 intl units) furosemide (furosemide 20 mg Tab) glipiZIDE (glipiZIDE 2.5 mg ER Tab) ibuprofen (ibuprofen 200 mg Tab) imipramine (imipramine 50 mg oral tablet) irbesartan (irbesartan 75 mg Tab) metformin (metformin 500 mg Tab) olodaterol-tiotropium (Stiolto Respimat 2.5 mcg-2.5 mcg inhalation aerosol) omega-3 polyunsaturated fatty acids (Fish Oil 1000 mg oral capsule) ropinirole (ropinirole 0.5 mg Tab) tamsulosin (tamsulosin 0.4 mg Cap) terazosin (terazosin 2 mg Cap) Procedures Performed TURP - Transurethral resection of prostate (12/21/2021), Colonoscopy (01/10/2021), EGD - Esophagogastroduodenos copy (01/10/2021), Cystourethroscopy with dilation of urethral stricture (05/07/2017), Brachytherapy (09/19/2016), TURP - Transurethral resection of prostate (04/11/2016), Cystoscopy (04/02/2016), Transrectal biopsy of prostate using ultrasound (US) guidance (07/04/2015), Appendectomy, External beam radiotherapy, Procedure on back. Discharge Vitals Heart Rate (Peripheral) 80 Respiratory Rate 16 Blood Pressure 130/80 Height 188 cm Height 74 in Weight 127 kg Weight 279.4 lb BMI 35.93 What to do next Scheduled Follow-Up Appointments Friday 7:00 AM EDT With: Erasmo CHOPRA, Raegan Adler Where: [facility] Invalid Interpretation Code [address] [place] [address]- \.br\ Friday 8:00 AM EDT \.br\ With:\.br\ Where: [facility] Patient Educationon 12-10-19 Patient Education Oncology Cancer Screening for Men A cancer screening is a test or exam that checks for cancer. Your health care provider will recommend specific cancer screenings based on your age, medical history (including risk factors), and family history of cancer. Work with your health care provider to create a cancer screening schedule that protects your health. Who should have screening? All men should be considered for screening of certain cancers, including colorectal cancer, prostate cancer, lung cancer, and skin cancer. Your health care provider may recommend screenings for other types of cancer if: ? You had cancer before. ? You have a family member with cancer. ? You have abnormal genes that could increase the risk of cancer. ? You have risk factors for certain cancers, such as current or past use of tobacco products, or being overweight. When you should be screened for cancer depends on: ? Your age. ? Your medical history and your family's medical history. ? Certain lifestyle factors, such as smoking or other use of tobacco products. ? Environmental exposure, such as to asbestos. How is screening done? Colorectal cancer All adults should have screenings starting at age 45 and continuing until age 75. Your health care provider may recommend screening before age 45. You will have tests every 1?10 years, depending on your results and the type of screening test. People at increased risk should start screening at an earlier age. Talk with your health care provider about which screening test is right for you and how often you should be screened. Colorectal cancer screening looks for cancer or for growths called polyps that often form before cancer starts. Tests to look for cancer or polyps include: ? Colonoscopy or flexible sigmoidoscopy. For these procedures, a flexible tube with a small camera is inserted into the rectum. ? CT colonography. This test uses X-rays and a contrast dye to check the colon for polyps. If a polyp is found, you may need to have a colonoscopy so the polyp can be located and removed. Tests to look for cancer in the stool (feces) include: ? Guaiac-based fecal occult blood test (FOBT). This test can find blood in stool. It can be done at home with a kit. ? Fecal immunochemical test (FIT). This test can find blood in stool. For this test, you will need to collect stool samples at home. ? Stool DNA test. This test looks for blood in stool and any changes in DNA that can lead to colon cancer. For this test, you will need to collect a stool sample at home and send it to a lab. Prostate cancer Prostate cancer screening for men with average risk may start at age 50. Men with risk factors may need to be screened earlier, at ages 40?45. Talk with your health care provider about whether screening is right for you and, if so, how often you should be screened. Prostate cancer screening is done with blood tests and a digital rectal exam. During this exam, a health care provider uses a gloved finger to check prostate size. You may need to be screened for prostate cancer if: ? You have risk factors for prostate cancer, such as being or having a close family member with prostate cancer. ? You have had gene changes or a genetic condition that was passed on to you from a parent (inherited). These gene changes or genetic conditions include BRCA1 or BRCA2 gene mutations or Johnson syndrome. ? You have symptoms of prostate cancer, such as problems urinating or problems getting or keeping an erection (erectile dysfunction). When you have been screened for prostate cancer, future screening may be recommended based on the results of your blood tests. Lung cancer Lung cancer screening is done with a CT scan that looks for abnormal changes in the lungs. Discuss lung cancer screening with your health care provider if you are 50?80 years old and if any of the following apply to you: ? You currently smoke. ? You used to smoke heavily. ? You have a smoking history of 1 pack of cigarettes a day for 20 years or 2 packs a day for 10 years. ? You have quit smoking within the past 15 years. You may need to be screened every year if you smoke heavily or if you used to smoke. Skin cancer Skin cancer screening is done by checking the skin for unusual moles or spots and any changes in existing moles. Your health care provider should check your skin for signs of skin cancer at every physical exam. You should check your skin every month and tell your health care provider right away if anything looks unusual. Men with a qkyetj-rxqb-ezxatd risk for skin cancer may want to see a audio visual specialist (account support manager) for an annual body check. What are the benefits of screening? Cancer screening is done to look for cancer in the very early stages, before it spreads and becomes harder to treat and before you would start to notice symptoms. Finding cancer early improves the chances of successful treatment. It ma (more content not included)... Normal [facility] Urology Office/Clinic Noteon 12-09-2022 Urology Office/Clinic Note Chief Complaint UTI/Frequency HPI Staff Pt is here today due to recurrent UTI. Last seen in our office 09/26/21 due to Hx of Prostate Cancer, BPH, Incomplete Bladder Emptying & Pyelonephritis. S/P Brachytherapy & EBRT done in 2017. *Tamsulosin 0.4mg BID & Terazosin 2mg QD therapy. S/P TURP done @ [facility] 12/21/[address] Jesus Ram. Has not followed up since post op televisit done 01/01/22. PSA 08/26/22- <0.13 PSA 10/15/22- <0.1 NEG C&S 11/14/22 *Tx'd with Keflex 500mg BID [id number]. Lt flank pain started about 1 month ago. Denies Hx of Kidney Stones. Denies pain/burning and visible blood in urine. Signs of infection: odor to urine & Increased frequency. Does not feel like he has current infection. Got in to see PCP before he could get in to our office. Pt is CIC 2-3x/day. Does void on his own as well. Denies small voids or CIC complications. PVR today >999ml.ml. Pt then used the restroom again, repeat PVR 746ml. Was referred from our office to [facility] in 2020 due to renal mass, states he is no longer following up with them. History of Present Illness Tests reviewed: reviewed UA, [facility] records. I have reviewed the previous health record information and history for this patient from Dr. Kelley. I have reviewed and verified the staff HPI to be accurate for this encounter. There have been no associated fever, chills, flank pain, or blood in the urine. Denies any urinary infections since last encounter. Review of Systems PHQ Score Initial Depression Screen Score: 0 ROS - Provider Constitutional: denies weight loss, denies hot flashes. Eyes: denies eye problems. Gastrointestinal: denies nausea, denies vomiting. Cardiovascular: denies chest pain or angina. Integumentary: no dryness Musculoskeletal: denies musculoskeletal symptoms. ENMT: denies otolaryngeal symptoms. Respiratory: no shortness of breath. Heme/Lymph: denies easy bleeding tendency, denies easy bruising tendency. Psychiatric: no confusion, no anxiety. Genitourinary: See HPI. Physical Exam Vitals & Measurements HR: 80(Peripheral) RR: 16 BP: 130/80 HT: 74 in HT: 188 cm WT: 127 kg WT: 279.4 lb BMI: 35.93 General Appearance: alert, no distress, well nourished, well developed male. Genitourinary: normal scrotum, normal testes, normal urethra, normal epididymis, normal vas deferens/spermatic cord. Flank Pain: none. Bladder: nonpalpable. Assessment/Plan 1. History of prostate cancer (Z85.46: Personal history of malignant neoplasm of prostate) PSA: 08/26/22 - <0.13 10/15/22 - <0.1 EBRT 2017. S/p Brachytherapy 2017. PSA remains undetectable. Will cont to monitor. 2. BPH with urinary obstruction (N40.1: Benign prostatic hyperplasia with lower urinary tract symptoms) S/p TURP 12/21/21 at [facility] by Dr. Ram - Path showed BPH and radiation effect. Small focus of atypical glands with radiation effect. Was told at [facility] he would no longer have to CIC after having TURPbut he still needs to do cic every day. Taking Tamsulosin 0.4 mg bid and Terazosin 2 mg qd. Educated pt he is more likely to leak since he had TURP after radiation. 3. Incomplete bladder emptying (R33.9: Retention of urine, unspecified) PVR (cc): 12/09/22 - >999 12/09/22 - 746 repeat after end void Doing CIC 2x/day, in the morning and evening. Does void on his own as well. Educated pt to CIC at least 3x/day. preferably 4x/day. Explained risks of incomplete emptying including infection. -Increase CIC frequency to at least 3x/day. 4. UTI symptoms (R39.9: Unspecified symptoms and signs involving the genitourinary system) UCx 11/14/22 - Neg. Treated with Keflex 500 mg bid x 10 days by PCP office. UA today shows small leuks. C/o UTI sxs over the past few mos. Urge to void w small voids, odor in urine. Last abx course 2 weeks ago bid for 10 days. Did not feel improvement with this course. Usually does feel improvement with abx. Discussed taking low-dose daily abx for a few mos. Follow up 3 mos no labs or sooner if needed. Pt understands and agrees with plan. -Start Augmentin 875 mg qd x 60 ct. SEs discussed. Rx sent to [facility]. -Consider adding bladder med if sxs do not improve after abx course. 5. Chronic prostatitis (N41.1: Chronic prostatitis) See #4. 6. History of pyelonephritis (Z87.448: Personal history of other diseases of urinary system) Was told there was nothing concerning on his kidney. 7. Bilateral flank pain (R10.9: Unspecified abdominal pain) Ongoing a month. Possibly due to #3. 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 Follow-up With When Contact Information Jeremy KELLEY MD, URL [facility] [address] [place] [address]- Additional Instructions: 3 mos no labs Patient Education Cancer Screening for Men I, Ita Orozco, personally scribed for Dr. Kelley on 12/09/2022 10:35:45. . Documentation recorded by the scribeIta, accurately reflects the services(s) (more content not included)... Normal [facility] Comment on above: Result Comment: Elec tronically Signed By: Jeremy KELLEY MD\.br\Date and Time Signed: 12/09/22 10:37 EDT\.br\Electronically Co-Signed By: Ita Orozco\.br\Date and Time Co-Signed: 12/09/22 10:36 EDT Insurance Correspondence Off iceon 12-05-2022 Insurance Correspondence Office [id number] CD:127 Normal [facility] .Interpretation:on HCV Ab IA Ql Comment Invalid Interpretation Code [facility] Comment on above: Result Comment: Not infected with HCV unless early or acute infection is suspected (which may be delayed in an immunocompromised individual), or other evidence exists to indicate HCV infection. Performed at: [facility] [address], [place] [id number] PhD Matt Turner Performed By: #### 2 [id number] ####[facility] [address] [place] [address] HCV Antibody RFX to Quant PC Juanito 11-27-2022 HCV IgG IA Ql Non-Reactive Invalid Interpretation Code Non Reactive [facility] Comment on above: Result Comment: Perf ormed at: [facility] [address], [place] [id number] PhD Matt Turner Performed By: #### 2 [id number] ####[facility] [address] [place] [address] Ambulatory Visit Summaryon 0 11-25-2022 Ambulatory Visit Summary RABIAMILAN Bennie :1950 Visit Date:11/25/2022 Ambulatory Visit Instructions Your Diagnosis Annual visit for general adult medical examination without abnormal findings Other problems related to lifestyle Hyperlipidemia Benign paroxysmal positional vertigo, unspecified laterality Hypertension History of prostate cancer Intermittent self-catheterization of bladder Morbid obesity due to excess calories Tests Performed Lab Specimen Collect [id number] Your Care Team Attending Physician - Raegan March MD Primary Care Physician - Raegan March MD This Is Your Medications List albuterol (Albuterol (Eqv-ProAir HFA) 90 mcg/inh inhalation aerosol) albuterol (albuterol 0.083% Inh Mary 3 mL) aspirin (aspirin 81 mg Oral EC Tab) atenolol (atenolol 50 mg Tab) atorvastatin (atorvastatin 40 mg Tab) cholecalciferol (Vitamin D3 2000 intl units) furosemide (furosemide 20 mg Tab) glipiZIDE (glipiZIDE 2.5 mg ER Tab) ibuprofen (ibuprofen 200 mg Tab) imipramine (imipramine 50 mg oral tablet) irbesartan (irbesartan 75 mg Tab) metformin (metformin 500 mg Tab) olodaterol-tiotropium (Stiolto Respimat 2.5 mcg-2.5 mcg inhalation aerosol) omega-3 polyunsaturated fatty acids (Fish Oil 1000 mg oral capsule) ropinirole (ropinirole 0.5 mg Tab) tamsulosin (tamsulosin 0.4 mg Cap) terazosin (terazosin 2 mg Cap) Procedures Performed Colonoscopy (01/10/2021), EGD - Esophagogastroduodenos copy (01/10/2021), Cystourethroscopy with dilation of urethral stricture (05/07/2017), Brachytherapy (09/19/2016), TURP - Transurethral resection of prostate (04/11/2016), Cystoscopy (04/02/2016), Transrectal biopsy of prostate using ultrasound (US) guidance (07/04/2015), Appendectomy, External beam radiotherapy, Procedure on back. Discharge Vitals Heart Rate (Peripheral) 61 Blood Pressure 118/70 Height 167 cm Height 66 in Weight 128 kg Weight 281.6 lb BMI 45.9 What to do next Scheduled Follow-Up Appointments Friday 9:30 AM EDT With: ALLIE CHOPRA, Jeremy Avery Where: [facility] Invalid Interpretation Code [address] [place] [address]- \.br\ Friday 8:00 AM EDT \.br\ With:\.br\ Where: [facility] CHEMISTRYOrdered By: SYSTEM SYSTEM on 11-25-2022 Cholesterol [Mass/Vol] 108 mg/dL Low 120 - 200 mg/dL [facility] Cholesterol in HDL [Mass/Vol] 32 mg/dL Invalid Interpretation Code [facility] Cholesterol in LDL [Mass/Vol] 53 mg/dL Normal <=129mg/dL [facility] Cholesterol in VLDL [Mass/Vol] 24 mg/dL Normal 7 - 40 mg/dL [facility] Triglyceride [Mass/Vol] 122 mg/dL Normal <=149mg/dL [facility] Family Medicine Office/Clini c Noteon 11-25-2022 Family Medicine Office/Clinic Note Chief Complaint Subsequent Medicare Wellness Visit History of Present Illness I was in the office and available for consultation and to provide direct supervision at the time of this visit. I have provided supervision of the care team and have reviewed this chart and office note and agree with the plan of care. Covid-19, MERS, Ebola Screen *Contact With Person With Highly Contagious Disease Like Ebola/MERS/COVID-19 AND Have One or More of the Symptoms Below : No *Travel to a Country With Wide-Spread Ebola/MERS/COVID-19 in the Past 21 Days AND Have One or More of the Symptoms Below : No Patient Reported Covid-19 Testing : No *Verify Droplet, Contact Precautions for Ebola (Reference for CDC) : N/A *Verify Airborne, Droplet Precautions for MERS/COVID-19 : N/A Sharon Nestoralvin Reyes 11/25/2022 8:00 EDT Medicare/Medicaid Summary Height/Length Measured : 167 cm(Converted to: 5 ft 6 in, 65.75 in) Weight Measured : 128 kg(Converted to: 282 lb 3 Ounces, 282.192 lb) Body Mass Index Measured : 45.9 kg/m2 Height in Inches : 66 in Weight in Pounds : 281.6 lb Waist Measurement : 129 cm(Converted to: 51 in) Systolic Blood Pressure : 118 mmHg Diastolic Blood Pressure : 70 mmHg Blood Pressure Location : Left arm Blood Pressure Position : Sitting O2 Sat Resting/Exertion Alpha : Resting Peripheral Pulse Rate : 61 bpm SpO2 : 94 % Numeric Rating Pain Score : 7 Nestor Herrera 11/25/2022 8:45 EDT Chief Complaint : Subsequent Medicare Wellness Visit Patient Counseled : Nutrition, Physical activity, Elevated BMI Pain Present : Yes actual or suspected pain Numeric Rating Pain Scale : 7 Primary Pain Comments : Back, hips, arms, hands, legs Nestor Herrera 11/25/2022 8:00 EDT Patient Preferred Method of Communication No Preference Hearing and Vision Screening FT FT Whisper Test Comments : No deficits voiced Vision Screen Comments : Wears corrective lenses, Follows with Dr. Krishnamurthy of [facility] Nestor Herrera 11/25/2022 8:00 EDT Advance Directive FT Advance Directive : No Patient Wishes to Receive Further Information on Advance Directives : No Organ Donation Consent : Yes Nestor Herrera 11/25/2022 8:00 EDT Procedures / Surgeries FT - Procedure History (As Of: 11/25/2022 08:50:13 EDT) Procedure Dt/Tm: 09/19/2016 ; Provider: Jeremy KELLEY MD; Anesthesia Minutes: 0 ; Procedure Name: Brachytherapy ; Procedure Minutes: 0 ; Last Reviewed Dt/Tm: 11/25/2022 08:46:18 EDT Procedure Dt/Tm: 07/04/2015 ; Provider: Jeremy KELLEY MD; Anesthesia Minutes: 0 ; Procedure Name: TRUS/ Bx ; Procedure Minutes: 0 ; Last Reviewed Dt/Tm: 11/25/2022 08:46:18 EDT Anesthesia Minutes: 0 ; Procedure Name: Procedure on back ; Procedure Minutes: 0 ; Last Reviewed Dt/Tm: 11/25/2022 08:46:18 EDT Procedure Dt/Tm: 01/10/2021 ; Anesthesia Minutes: 0 ; Procedure Name: Colonoscopy ; Procedure Minutes: 0 ; Last Reviewed Dt/Tm: 11/25/2022 08:46:18 EDT Procedure Dt/Tm: 04/02/2016 ; Provider: Jeremy KELLEY MD; Anesthesia Minutes: 0 ; Procedure Name: Cystoscopy ; Procedure Minutes: 0 ; Last Reviewed Dt/Tm: 11/25/2022 08:46:18 EDT Procedure Dt/Tm: 05/07/2017 ; Provider: Jeremy KELLEY MD; Anesthesia Minutes: 0 ; Procedure Name: Cysto/ UD ; Procedure Minutes: 0 ; Last Reviewed Dt/Tm: 11/25/2022 08:46:18 EDT Provider: Shira Burgess MD; Anesthesia Minutes: 0 ; Procedure Name: External beam radiotherapy ; Procedure Minutes: 0 ; Last Reviewed Dt/Tm: 11/25/2022 08:46:18 EDT Anesthesia Minutes: 0 ; Procedure Name: Appendectomy ; Procedure Minutes: 0 ; Last Reviewed Dt/Tm: 11/25/2022 08:46:18 EDT Procedure Dt/Tm: 04/11/2016 ; Provider: Jeremy KELLEY MD; Anesthesia Minutes: 0 ; Procedure Name: TURP - Transurethral resection of prostate ; Procedure Minutes: 0 ; Last Reviewed Dt/Tm: 11/25/2022 08:46:18 EDT Procedure Dt/Tm: 01/10/2021 ; Anesthesia Minutes: 0 ; Procedure Name: EGD - Esophagogastroduodenos copy ; Procedure Minutes: 0 ; Last Reviewed Dt/Tm: 11/25/2022 08:46:18 EDT Family History Family History (As Of: 11/25/2022 08:50:13 EDT) Father: Relation: Father ; Gender: Male ; Nomenclature: Heart disease ; Value: Positive Nomenclature: Hypertension ; Value: Positive Mother: Relation: Mother ; Gender: Female ; Nomenclature: Hypertension ; Value: Positive Nomenclature: Diabetes mellitus type 2 ; Value: Positive Nomenclature: Cancer ; Value: Positive Sister: Relation: Sister ; Gender: Female ; Nomenclature: Cancer ; Value: Positive Medicare/Medicaid Social History FT Social History (As Of: 11/25/2022 08:50:13 EDT) Tobacco: Denies Tobacco Use Former smoker, quit more than 30 days ago Tobacco Use:. Never Smokeless Tobacco Use:. Cigarettes, Household tobacco concerns: No. (Last Updated: 11/13/2022 13:11:01 EDT by Joe Cruz) Substance Abuse: Denies Substance Abuse (Last Updated: 10/15/2022 12:58:01 EDT by Delaney Henderson ) Health Risk Assessment FT [place]azar (more content not included)... Normal [facility] Comment on above: Result Comment: Elec tronically Signed By: Raegan March MD\.br\Date and Time Signed: 11/25/22 17:40 EDT\.br\Electronically Co-Signed By: Nestor Herrera\.br\Date and Time Co-Signed: 11/25/22 09:19 EDT Lipid Panelon 11-25-2022 Cholesterol [Mass/Vol] 108 mg/dL Low 120-200 [facility] Comment on above: Performed By: #### 2 [id number], [id number] ####[facility] [address] [place] [address] Cholesterol in HDL [Mass/Vol] 32 mg/dL Invalid Interpretation Code [facility] Comment on above: Result Comment: HDL > or equal to 60 mg/dL: Low cardiovascular risk HDL < 40 mg/dL : High cardiovascular risk Performed By: #### 2 [id number], [id number], [id number] ####[facility] [address] [place] [address] Cholesterol in LDL [Mass/Vol] 53 mg/dL Normal <=129 [facility] Comment on above: Performed By: #### 2 [id number], [id number] ####[facility] [address] [place] [address] Cholesterol in VLDL [Mass/Vol] 24 mg/dL Normal 7-40 [facility] Comment on above: Performed By: #### 2 [id number], [id number], [id number] ####[facility] [address] [place] [address] Triglyceride [Mass/Vol] 122 mg/dL Normal <=149 [facility] Comment on above: Performed By: #### 2 [id number], [id number], [id number] ####[facility] [address] [place] [address] Patient Educationon 11-26-19 23 Patient Education Caregiving Fall Prevention in the Home, Adult Falls can cause injuries and affect people of all ages. There are many simple things that you can do to make your home safe and to help prevent falls. Ask for help when making these changes, if needed. What actions can I take to prevent falls? General instructions ? Use good lighting in all rooms. Replace any light bulbs that burn out, turn on lights if it is dark, and use night-lights. ? Place frequently used items in [id number]-tw-vtpsr places. Lower the shelves around your home if necessary. ? Set up furniture so that there are clear paths around it. Avoid moving your furniture around. ? Remove throw rugs and other tripping hazards from the floor. ? Avoid walking on wet floors. ? Fix any uneven floor surfaces. ? Add color or contrast paint or tape to grab bars and handrails in your home. Place contrasting color strips on the first and last steps of staircases. ? When you use a stepladder, make sure that it is completely opened and that the sides and supports are firmly locked. Have someone hold the ladder while you are using it. Do not climb a closed stepladder. ? Know where your pets are when moving through your home. What can I do in the bathroom? ? Keep the floor dry. Immediately clean up any water that is on the floor. ? Remove soap buildup in the tub or shower regularly. ? Use nonskid mats or decals on the floor of the tub or shower. ? Attach bath mats securely with double-sided, nonslip rug tape. ? If you need to sit down while you are in the shower, use a plastic, nonslip stool. ? Install grab bars by the toilet and in the tub and shower. Do not use towel bars as grab bars. What can I do in the bedroom? ? Make sure that a bedside light is easy to reach. ? Do not use oversized bedding that reaches the floor. ? Have a firm chair that has side arms to use for getting dressed. What can I do in the kitchen? ? Clean up any spills right away. ? If you need to reach for something above you, use a sturdy step stool that has a grab bar. ? Keep electrical cables out of the way. ? Do not use floor [place] or wax that makes floors slippery. If you must use wax, make sure that it is non-skid floor wax. What can I do with my stairs? ? Do not leave any items on the stairs. ? Make sure that you have a light switch at the top and the bottom of the stairs. Have them installed if you do not have them. ? Make sure that there are handrails on both sides of the stairs. Fix handrails that are broken or loose. Make sure that handrails are as long as the staircases. ? Install non-slip stair treads on all stairs in your home. ? Avoid having throw rugs at the top or bottom of stairs, or secure the rugs with carpet tape to prevent them from moving. ? Choose a carpet design that does not hide the edge of steps on the stairs. ? Check any carpeting to make sure that it is firmly attached to the stairs. Fix any carpet that is loose or worn. What can I do on the outside of my home? ? Use bright outdoor lighting. ? Regularly repair the edges of walkways and driveways and fix any cracks. ? Remove high doorway thresholds. ? Trim any shrubbery on the main path into your home. ? Regularly check that handrails are securely fastened and in good repair. Both sides of all steps should have handrails. ? Install guardrails along the edges of any raised decks or porches. ? Clear walkways of debris and clutter, including tools and rocks. ? Have leaves, snow, and ice cleared regularly. ? Use sand or salt on walkways during winter months. ? In the garage, clean up any spills right away, including grease or oil spills. What other actions can I take? ? Wear closed-toe shoes that fit well and support your feet. Wear shoes that have rubber soles or low heels. ? Use mobility aids as needed, such as canes, walkers, scooters, and crutches. ? Review your medicines with your health care provider. Some medicines can cause dizziness or changes in blood pressure, which increase your risk of falling. Talk with your health care provider about other ways that you can decrease your risk of falls. This may include working with a physical therapist or education trainer to improve your strength, balance, and endurance. Where to find more information ? Centers for Disease Control and Prevention, [place]: www.cdc.gov ? National [place] on Aging: www.blane.nih.gov Contact a health care provider if: ? You are afraid of falling at home. ? You feel weak, drowsy, or dizzy at home. ? You fall at home. Summary ? There are many simple things that you can do to make your home safe and to help prevent falls. ? Ways to make your home safe include removing tripping hazards and installing grab bars in the bathroom. ? Ask for help when making these changes in your home. This information is not intended to replace advice given to you by your health ca (more content not included)... Normal [facility] Screenson 11-25-2022 Screens [id number] Normal [facility] C Urineon 11-15-2022 Bacteria identified Cx Nom (U) Microbiology PROCEDURE: Urine Culture [R1] SOURCE: U Cath BODY SITE: COLLECTED DATE/TIME: 11/13/2022 13:27 EDT RECEIVED DATE/TIME: 11/13/2022 17:27 EDT START DATE/TIME: 11/13/2022 17:27 EDT FREE TEXT SOURCE: aaron March MD, Raegan March MD, Raegan Adler FINAL REPORTS Final Report [] Verified Date/Time: 11/15/2022 11:33 EDT No growth at 2 days. Performing Locations R1: This test was performed at: [facility], [address] [place] [address], [id number] , , [facility] Comment on above: Performed By: #### 2 [id number] #### [facility] [address] [place] [address] Family Medicine Office/Clini c Noteon 11-14-2022 Family Medicine Office/Clinic Note Chief Complaint continued urgency with urination --- pt states that he is saw Sebastián on the and Dx with a UTI. Pt was placed on a antibiotic and finished it 2 days ago. Pt is still experiencing pressure after urination and the urgency to go. Also has a smell HPI Staff Please talk to patient about AWV patient presents with continued urgency with urination Dysuria: Onset: saw Pau Sebastián 11/01 Symptoms: urgency OTC used: was rxed cephalexin on 11/01 Last UTI: 11/01/22 Hx of kidney stones: no UA in office documented in chart History of Present Illness Milan Camarillo is a 72-year-old male who presents today for a follow-up evaluation of UTI. He states that he is self catheterizing himself 2 to 3 times daily. He uses a new catheter every time and rubber gloves. The patient states he does not want to increase the frequency of catheterization daily. He was following-up with Dr. Kelley at [facility] however, he does not want to follow up with them. Review of Systems PHQ Score Initial Depression Screen Score: 0 Physical Exam Vitals & Measurements HR: 62(Peripheral) RR: 18 BP: 128/72 SpO2: 96% HT: 76 in HT: 193 cm WT: 126.6 kg WT: 278.52 lb BMI: 33.99 General: alert, no acute distress Extremities: no deformity, no trauma Neurological: oriented x 4, LOC appropriate for age, CN II-XII intact, motor strength equal & normal bilaterally, speech normal Abdomen: soft, nontender, nondistended. Assessment/Plan 1. Urinary urgency (R39.15: Urgency of urination) UA was positive for leukocytes. I am concerned that the patient is not catheterizing frequent enough as he is only doing 1 or 2 times a day. Discussed with the patient that he needs to increase his catheterization frequency which will help keep the urine from sitting in his bladder. Patient is disagreeing with this at this time. Encouraged the patient to follow up with Dr. Kelley, his urologist moving forward. 2. History of prostate cancer (Z85.46: Personal history of malignant neoplasm of prostate) Again, patient was seeing urology at [facility] for this. Patient has refused to follow up with them. With this I am encouraging the patient to follow up with local urologist. 3. Incomplete bladder emptying (R33.9: Retention of urine, unspecified) Again, I am concerned about how often he is self catheterizing. Discussed that in detail. 4. Intermittent self-catheterization of bladder (Z78.9: Other specified health status) As above. 5. BMI 33.0-33.9,adult (Z68.33: Body mass index [BMI] 33.0-33.9, adult) BMI education given. We will give Levaquin for patient's UTI given this being the second round of infection in less than a month. ATTESTATION: Documentation services were performed after patient or guardian consented to allow Hugh Melodie Chowdary to record this visit. 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 ANGEL: Amanda Sidhu Follow-up No qualifying data available Problem List/Past Medical History Ongoing Acute bilateral low back pain with right-sided sciatica Arthritis Back pain Benign paroxysmal positional vertigo, unspecified laterality BMI 34.0-34.9,adult BPH with urinary obstruction Chronic prostatitis Cough Former smoker Gross hematuria History of prostate cancer Hyperlipidemia Hypertension Impotence Incomplete bladder emptying Intermittent self-catheterization of bladder Left varicocele Microscopic hematuria Non-smoker Pyelonephritis Renal mass Scrotal swelling SOB (shortness of breath) Urinary urgency Historical No qualifying data Procedure/Surgical History Colonoscopy (01/10/2021), EGD - Esophagogastroduodenos copy (01/10/2021), Cystourethroscopy with dilation of urethral stricture (05/07/2017), Brachytherapy (09/19/2016), TURP - Transurethral resection of prostate (04/11/2016), Cystoscopy (04/02/2016), Transrectal biopsy of prostate using ultrasound (US) guidance (07/04/2015), Appendectomy, External beam radiotherapy, Procedure on back. Medications Albuterol (Eqv-ProAir HFA) 90 mcg/inh inhalation aerosol, 2 puff(s), Inhalation, q6hr, 3 refills albuterol 0.083% Inh Mary 3 mL, 2.5 mg= 3 mL, NEB, q4hr aspirin 81 mg Oral EC Tab atenolol 50 mg Tab, 50 mg= 1 tab(s), Oral, BID, 3 refills atorvastatin 40 mg Tab, 40 mg= 1 tab(s), Oral, Daily, 3 refills Fish Oil 1000 mg oral capsule furosemide 20 mg Tab, 20 mg= 1 tab(s), Oral, BID, 3 refills glipiZIDE 2.5 mg ER Tab, 2.5 mg= 1 tab(s), Oral, Daily, 3 refills ibuprofen 200 mg Tab imipramine 50 mg oral tablet, 50 mg= 1 tab(s), Oral, TID, 3 refills irbesartan 75 mg Tab, 75 mg= 1 tab(s), Oral, Daily, 3 refills Levaquin 750 mg Tab, 750 mg= 1 tab(s), Oral, q24hr metformin 500 mg Tab, 500 mg= 1 tab(s), Oral, BID, 3 refills ropinirole 0.5 mg Tab, 0.5 mg= 1 tab(s), Oral, BID, 3 refills Stiolto Respimat 2.5 mcg-2.5 mcg inhalation aerosol, 2 puff(s), Inhalation, q24hr, 3 refills tamsulosin 0.4 mg Cap, 0.4 mg= 1 cap(s), Oral, Daily (more content not included)... Normal [facility] Comment on above: Result Comment: Elec tronically Signed By: Raegan March MD\.br\Date and Time Signed: 11/14/22 10:09 EDT\.br\Electronically Co-Signed By: Amanda Sidhu\.br\Date and Time Co-Signed: 11/13/22 15:46 EDT Ambulatory Visit Summaryon 0 11-01-2022 Ambulatory Visit Summary MILAN CAMARILLO :1950 Visit Date:11/01/2022 Ambulatory Visit Instructions Your Diagnosis Urinary tract infection Urinary frequency BMI 34.0-34.9,adult Class 1 obesity due to excess calories in adult Tests Performed Urnls Dip Stick Non-Auto w/o Micrscpy POC 30412 Your Care Team Attending Physician - Pau Bhatti Primary Care Physician - Raegan March MD This Is Your Medications List albuterol (Albuterol (Eqv-ProAir HFA) 90 mcg/inh inhalation aerosol) albuterol (albuterol 0.083% Inh Mary 3 mL) aspirin (aspirin 81 mg Oral EC Tab) atenolol (atenolol 50 mg Tab) atorvastatin (atorvastatin 40 mg Tab) cephalexin (cephalexin 500 mg Cap) cholecalciferol (Vitamin D3 2000 intl units) furosemide (furosemide 20 mg Tab) glipiZIDE (glipiZIDE 2.5 mg ER Tab) ibuprofen (ibuprofen 200 mg Tab) imipramine (imipramine 50 mg oral tablet) irbesartan (irbesartan 75 mg Tab) meclizine (Antivert 12.5 mg Tab) metformin (metformin 500 mg Tab) olodaterol-tiotropium (Stiolto Respimat 2.5 mcg-2.5 mcg inhalation aerosol) omega-3 polyunsaturated fatty acids (Fish Oil 1000 mg oral capsule) ropinirole (ropinirole 0.5 mg Tab) tamsulosin (tamsulosin 0.4 mg Cap) terazosin (terazosin 2 mg Cap) Procedures Performed Colonoscopy (01/10/2021), EGD - Esophagogastroduodenos copy (01/10/2021), Cystourethroscopy with dilation of urethral stricture (05/07/2017), Brachytherapy (09/19/2016), TURP - Transurethral resection of prostate (04/11/2016), Cystoscopy (04/02/2016), Transrectal biopsy of prostate using ultrasound (US) guidance (07/04/2015), Appendectomy, External beam radiotherapy, Procedure on back. Discharge Vitals Heart Rate (Peripheral) 74 Respiratory Rate 20 Blood Pressure 120/72 Height 193 cm Height 76 in Weight 128.4 kg Weight 282.48 lb BMI 34.47 What to do next Scheduled Follow-Up Appointments Friday 8:00 AM EDT With: Where: [facility] Normal [address] [place] [phone] \.br\ Medications\.br\ What How Much When Why Instructions\.br\ New cephalexin (cephalexin 500 mg Cap) 1 Capsules By Mouth Every 12 hours BMI 34.0-34.9,adult Class 1 obesity due to excess calories in adult Pickup at [facility]/pharmacy #[id number]\.br\ Unchanged albuterol (Albuterol (Eqv-ProAir HFA) 90 mcg/ inh inhalation aerosol) 2 Puffs Inhalation Every 6 hours\.br\ Unchanged albuterol (albuterol 0.083% Inh Mary 3 mL) 3 Milliliter Nebulized inhalation (aerosol) Every 4 hours\.br\ Unchanged aspirin (aspirin 81 mg Oral EC Tab)\.br\ Unchanged atenolol (atenolol 50 mg Tab) 1 Tablets By Mouth 2 times a day\.br\ Unchanged atorvastatin (atorvastatin 40 mg Tab) 1 Tablets By Mouth Every day\.br\ Unchanged cholecalciferol (Vitamin D3 2000 intl units)\.br\ Unchanged furosemide (furosemide 20 mg Tab) 1 Tablets By Mouth 2 times a day\.br\ Unchanged glipiZIDE (glipiZIDE 2.5 mg ER Tab) 1 Tablets By Mouth Every day\.br\ Unchanged ibuprofen (ibuprofen 200 mg Tab)\.br\ Unchanged imipramine (imipramine 50 mg oral tablet) 1 Tablets By Mouth 3 times a day\.br\ Unchanged irbesartan (irbesartan 75 mg Tab) 1 Tablets By Mouth Every day\.br\ Unchanged meclizine (Antivert 12.5 mg Tab) 1 Tablets By Mouth 3 times a day as needed for Dizziness\.br\ Unchanged metformin (metformin 500 mg Tab) 1 Tablets By Mouth 2 times a day\.br\ Unchanged olodaterol-tiotropi um (Stiolto Respimat 2.5 mcg-2.5 mcg inhalation aerosol) 2 Puffs Inhalation Every 24 hours\.br\ Unchanged omega-3 polyunsaturated fatty acids (Fish Oil 1000 mg oral capsule)\.br\ Unchanged ropinirole (ropinirole 0.5 mg Tab) 1 Tablets By Mouth 2 times a day\.br\ Unchanged tamsulosin (tamsulosin 0.4 mg Cap) 1 Capsules By Mouth Every day\.br\ Unchanged terazosin (terazosin 2 mg Cap) 1 Capsules By Mouth Once a day (at bedtime)\.br\ Pharmacy Information\.br\ [facility]/pharmacy #[id number]: [address], [place] [id number] [phone]\.br\ Test Results\.br\ Urnls Dip Stick Non-Auto w/o Micrscpy POC 47646 (11/01/2022)\.br\ Bilirubin Urine Dipstick - Negative\.br\ Blood Urine Dipstick - 1+ Small\.br\ Glucose Urine Dipstick - Negative\.br\ Ketones Urine Dipstick - Negative\.br\ Leukocytes Urine Dipstick - 3+ Large\.br\ Nitrite Urine Dipstick - Negative\.br\ Protein Urine Dipstick - Trace\.br\ Specific Jackson Urine Dipstick - <=1.005\.br\ Urine Appearance Urine Dipstick - Clear\.br\ Urine Color Urine Dipstick - Light yellow\.br\ Urobilinogen Urine Dipstick - Normal 0.2-1 EU/dl\.br\ pH Urine Dipstick - 6\.br\ Allergies\.br\ contrast media (iodine-based) (Unknown)\.br\ inositol (Unknown)\.br\ shellfish (Unknown)\.br\ Problems\.br\ Ongoing - Any problem that you are currently receiving treatment for.\.br\ Acute bilateral low back pain with right-sided sciatica\.br\ Arthritis\.br\ Back pain\.br\ Benign paroxysmal positional vertigo, unspecified laterality\.br\ BMI 34.0-34.9,adult\.br \ BPH with urinary obstruction\.br\ Chronic prostatitis\.br\ Cough\.br\ Former smoker\.br\ Gross hematuria\.br\ History of prostate cancer\.br\ Hyperlipidemia\.br\ Hypertension\.br\ Impotence\.br\ Incomplete bladder emptying\.br\ Intermittent self-catheterizatio n of bladder\.br\ Left varicocele\.br\ Microscopic hematuria\.br\ Non-smoker\.br\ Pyelonephritis\.br\ Renal mass\.br\ Scrotal swelling\.br\ SOB (shortness of breath)\.br\ \.br\ [facility] Family Medicine Office/Clini c Noteon 11-01-2022 Family Medicine Office/Clinic Note Chief Complaint UTI HPI Staff Patient presents with urinary frequency and pressure Dysuria: Onset: 4 days Symptoms: frequency and pressure OTC used: nothing Last UTI: been awhile Hx of kidney stones: no UA in office documented in chart History of Present Illness pt presents today with UTI symptoms Review of Systems PHQ Score Initial Depression Screen Score: 0 ROS - Provider Constitutional: no fever, no chills, no sweats, no fatigue Respiratory: no shortness of breath, no cough, no orthopnea, no wheezing. Cardiovascular: no chest pain, no palpitations, no edema. Neurologic: no headache, no dizziness, no numbness, no weakness. : pt c/o urinary frequency and pressure Physical Exam Vitals & Measurements HR: 74(Peripheral) RR: 20 BP: 120/72 SpO2: 94% HT: 76 in HT: 193 cm WT: 128.4 kg WT: 282.48 lb BMI: 34.47 General: alert, no acute distress ENMT: oral mucosa moist, no pharyngeal erythema or exudate Cardiovascular: regular rate and rhythm, normal peripheral perfusion Respiratory: Lungs CTA, respirations non labored Extremities: no deformity, no trauma Neurological: oriented x 4, LOC appropriate for age, CN II-XII intact, motor strength equal & normal bilaterally, speech normal Assessment/Plan 1. Urinary tract infection (N39.0: Urinary tract infection, site not specified) pt presents today c/o urinary frequency and pressure. urinalysis in office +Lueks and blood. will treat. he has a history of UTI's. pt also c/o of heart burn. but declines omeprazole at this time. will try tums first. 2. Urinary frequency (R35.0: Frequency of micturition) see above Ordered: Urnls Dip Stick Non-Auto w/o Micrscpy POC 85857 3. BMI 34.0-34.9,adult (Z68.34: Body mass index [BMI] 34.0-34.9, adult) BMI education complete Ordered: cephalexin, 500 mg = 1 cap(s), Oral, q12hr, # 20 cap(s), Refills(s) 0, Pharmacy: [facility]/pharmacy #[id number], 193, cm, 11/01/22 15:23:00 EDT, Height/Length Dosing, 128.4, kg, 11/01/22 15:23:00 EDT, Weight Dosing Body Mass Index (BMI) documented 3008F Current tobacco non-user 1036F Depression Screening Negative 3352F Influenza immunization administered or previously received 4274F Most recent diastolic blood pressure <80 mm Hg 3078F Patient screen for fall risk: no falls in last year or 1 fall with no injury in last year 1101F Systolic BP <130 mm Hg (Most Recent) 3074F 4. Class 1 obesity due to excess calories in adult (E66.09: Other obesity due to excess calories) see above Ordered: cephalexin, 500 mg = 1 cap(s), Oral, q12hr, # 20 cap(s), Refills(s) 0, Pharmacy: [facility]/pharmacy #[id number], 193, cm, 11/01/22 15:23:00 EDT, Height/Length Dosing, 128.4, kg, 11/01/22 15:23:00 EDT, Weight Dosing Body Mass Index (BMI) documented 3008F Current tobacco non-user 1036F Depression Screening Negative 3352F Influenza immunization administered or previously received 4274F Most recent diastolic blood pressure <80 mm Hg 3078F Patient screen for fall risk: no falls in last year or 1 fall with no injury in last year 1101F Systolic BP <130 mm Hg (Most Recent) 3074F Follow-up No qualifying data available Problem List/Past Medical History Ongoing Acute bilateral low back pain with right-sided sciatica Arthritis Back pain Benign paroxysmal positional vertigo, unspecified laterality BMI 34.0-34.9,adult BPH with urinary obstruction Chronic prostatitis Cough Former smoker Gross hematuria History of prostate cancer Hyperlipidemia Hypertension Impotence Incomplete bladder emptying Intermittent self-catheterization of bladder Left varicocele Microscopic hematuria Non-smoker Pyelonephritis Renal mass Scrotal swelling SOB (shortness of breath) Historical No qualifying data Procedure/Surgical History Colonoscopy (01/10/2021), EGD - Esophagogastroduodenos copy (01/10/2021), Cystourethroscopy with dilation of urethral stricture (05/07/2017), Brachytherapy (09/19/2016), TURP - Transurethral resection of prostate (04/11/2016), Cystoscopy (04/02/2016), Transrectal biopsy of prostate using ultrasound (US) guidance (07/04/2015), Appendectomy, External beam radiotherapy, Procedure on back. Medications Albuterol (Eqv-ProAir HFA) 90 mcg/inh inhalation aerosol, 2 puff(s), Inhalation, q6hr, 3 refills albuterol 0.083% Inh Mary 3 mL, 2.5 mg= 3 mL, NEB, q4hr Antivert 12.5 mg Tab, 12.5 mg= 1 tab(s), Oral, TID, PRN aspirin 81 mg Oral EC Tab atenolol 50 mg Tab, 50 mg= 1 tab(s), Oral, BID, 3 refills atorvastatin 40 mg Tab, 40 mg= 1 tab(s), Oral, Daily, 3 refills cephalexin 500 mg Cap, 500 mg= 1 cap(s), Oral, q12hr Fish Oil 1000 mg oral capsule furosemide 20 mg Tab, 20 mg= 1 tab(s), Oral, BID, 3 refills glipiZIDE 2.5 mg ER Tab, 2.5 mg= 1 tab(s), Oral, Daily, 3 refills ibuprofen 200 mg Tab imipramine 50 mg oral tablet, 50 mg= 1 tab(s), Oral, TID, 3 refills irbesartan 75 mg Tab, 75 mg= 1 tab(s), Oral, Daily, 3 refills metformin 500 mg Tab, 500 mg= 1 tab(s), Or (more content not included)... Normal [facility] Comment on above: Result Comment: Elec tronically Signed By: Pau Bhatti\.br\Date and Time Signed: 11/01/22 15:39 EDT Ambulatory Visit Summaryon 0 10-18-2022 Ambulatory Visit Summary MILAN CAMARILLO :1950 Visit Date:10/18/2022 Ambulatory Visit Instructions Your Diagnosis Cough BMI 34.0-34.9,adult Class 1 obesity due to excess calories in adult Your Care Team Attending Physician - Pau Bhatti Primary Care Physician - Raegan March MD This Is Your Medications List albuterol (Albuterol (Eqv-ProAir HFA) 90 mcg/inh inhalation aerosol) albuterol (albuterol 0.083% Inh Mary 3 mL) aspirin (aspirin 81 mg Oral EC Tab) atenolol (atenolol 50 mg Tab) atorvastatin (atorvastatin 40 mg Tab) benzonatate (benzonatate 200 mg oral capsule) cholecalciferol (Vitamin D3 2000 intl units) furosemide (furosemide 20 mg Tab) glipiZIDE (glipiZIDE 2.5 mg ER Tab) ibuprofen (ibuprofen 200 mg Tab) imipramine (imipramine 50 mg oral tablet) irbesartan (irbesartan 75 mg Tab) meclizine (Antivert 12.5 mg Tab) metformin (metformin 500 mg Tab) olodaterol-tiotropium (Stiolto Respimat 2.5 mcg-2.5 mcg inhalation aerosol) omega-3 polyunsaturated fatty acids (Fish Oil 1000 mg oral capsule) ropinirole (ropinirole 0.5 mg Tab) tamsulosin (tamsulosin 0.4 mg Cap) terazosin (terazosin 2 mg Cap) Procedures Performed Colonoscopy (01/10/2021), EGD - Esophagogastroduodenos copy (01/10/2021), Cystourethroscopy with dilation of urethral stricture (05/07/2017), Brachytherapy (09/19/2016), TURP - Transurethral resection of prostate (04/11/2016), Cystoscopy (04/02/2016), Transrectal biopsy of prostate using ultrasound (US) guidance (07/04/2015), Appendectomy, External beam radiotherapy, Procedure on back. Discharge Vitals Temperature (Oral) 36.6 ?C Heart Rate (Peripheral) 62 Respiratory Rate 16 Blood Pressure 140/78 Height 193 cm Height 76 in Weight 128.50 kg Weight 282.7 lb BMI 34.5 What to do next Scheduled Follow-Up Appointments Friday 7:00 AM EDT With: Raegan March MD Where: [facility] Ambulatory Visit Summary MILAN CAMARILLO :1950 Visit Date:10/18/2022 Ambulatory Visit Instructions Your Diagnosis Cough BMI 34.0-34.9,adult Class 1 obesity due to excess calories in adult Your Care Team Attending Physician - Pau Bhatti Primary Care Physician - Raegan March MD This Is Your Medications List albuterol (Albuterol (Eqv-ProAir HFA) 90 mcg/inh inhalation aerosol) albuterol (albuterol 0.083% Inh Mary 3 mL) aspirin (aspirin 81 mg Oral EC Tab) atenolol (atenolol 50 mg Tab) atorvastatin (atorvastatin 40 mg Tab) benzonatate (benzonatate 200 mg oral capsule) cholecalciferol (Vitamin D3 2000 intl units) furosemide (furosemide 20 mg Tab) glipiZIDE (glipiZIDE 2.5 mg ER Tab) ibuprofen (ibuprofen 200 mg Tab) imipramine (imipramine 50 mg oral tablet) irbesartan (irbesartan 75 mg Tab) meclizine (Antivert 12.5 mg Tab) metformin (metformin 500 mg Tab) olodaterol-tiotropium (Stiolto Respimat 2.5 mcg-2.5 mcg inhalation aerosol) omega-3 polyunsaturated fatty acids (Fish Oil 1000 mg oral capsule) ropinirole (ropinirole 0.5 mg Tab) tamsulosin (tamsulosin 0.4 mg Cap) terazosin (terazosin 2 mg Cap) Procedures Performed Colonoscopy (01/10/2021), EGD - Esophagogastroduodenos copy (01/10/2021), Cystourethroscopy with dilation of urethral stricture (05/07/2017), Brachytherapy (09/19/2016), TURP - Transurethral resection of prostate (04/11/2016), Cystoscopy (04/02/2016), Transrectal biopsy of prostate using ultrasound (US) guidance (07/04/2015), Appendectomy, External beam radiotherapy, Procedure on back. Discharge Vitals Temperature (Oral) 36.6 ?C Heart Rate (Peripheral) 62 Respiratory Rate 16 Blood Pressure 140/78 Height 193 cm Height 76 in Weight 128.50 kg Weight 282.7 lb BMI 34.5 What to do next Scheduled Follow-Up Appointments Friday 7:00 AM EDT With: Raegan March MD Where: [facility] Coding Summary.on 10-18-2022 Coding Summary. [id number] Ww +PGhlYWQ+MS1QYBLbA49fh LQmwP8fL7XXFEjSRlzuYGK ZLOvKSeZxybZsGF3zaDVeV XJu IC8+VG1cZNSnIhalbEVqb7 D1hRU4U36otc9lHXacvTR4 KJVxXfXodllsl6ajzUi7BY cuNmluOyBt VZDdzX28PAN2nA25Na20hA YpdNRqw0oudCz5IiNpKTVq VNR4vMzrQSltl8PzLKSlY9 2ifDGia3X2 FWRgzKupuPQyGlHfpCI7oN 2oZQwnshikt8kedftcWdh5 cu18zPOqm2N1rBZ3H8Nzpj I7DHQsbPKv LgjlrXLLvW7nghgwb3eyma vsTlZtIJGoJVw6IAx9OEHf fFvtGhFaWF40HOG5SZHpyb SnT4WcDDJe gCghSxP5o7Z5Dy3EX5YHXi xxB3VEBUQCRIlzkQC+PC90 pm14T8HhCwlhKic1OHCwZO S2rHN9hX4a APNxDNdxu9I7wSU9P4Pxwk Iwml7ra8cwOXTxNGowT90j mXJap0E7NDLszEZ9XKCqsX ztRnUdyU12 Oyc+WBXngTjon8WyOooms9 atc7cclIi7UptoDCOknyUh zMygDZB9p0PfAe9dDAGmiE V2pDK0xJ5q FzRiGiK8FYppI674UqEdyZ ZeTowaX45tA7UzbQW+PHRy Evf2ZWVrzYtjSQ0iY0HhZY RpbmctbGVm oSvmEN9lLTZcfkkuDIQftO 8qGDWpH7s6IfFxNoD3LZqm Y0JzAKLvqntaLp08bU0aZg HzHpI1PWwi E9OrhkQ3DAFjfGJsIIlgMU B2B99ip5R1FASjGXBvHIK9 yRT7eG5wbMambncihQLtyK sgdmVydGlj UJgaKKiiT851DPExlGgmNb NvZGluZyBEYXRlOiAgMDQv MjgvMjAyMzwvdGQ+PHRkIH W0lEqoFQYu yVVgXWvkUp2mySvrxPzjOI 1fJZUgkkzqYIBqbE5sRSLv kVOnaCkkAQ0dYXDwzrswf7 48IrWqZKD0 YORgdJNcO5PpcV0nJmAjWC JtKDYvM5VbpXCoIDgpC680 QRsdHpC1OQEeotDqL4HxHF FsaWduOiB0 p7N4Lg9Ow5KwoutrQ9CrqY QnDpDeMgmuCMb2N5MkXqqc dHI+QQ30YEIsDW05INp4SG N3yJarCVao PAReJ2IohQ3fEoXoKBZbCC RkOyc+PHRhYmxlIHdpZHRo OOekOMPeKiYetHygBL7yIa 9yZGVyLWNv sXsuxUDuRgXrr1pxYYLgRC izLE8dlKofD9UszQE3PTCn k4b2Ci84R79uF8VfmTW+PG BrlZZ3iAE3 aP3gPhMxEkN2OHodF125Ep SghOAnSobhc8lkp0oxdNx5 YwF5TTZuwsHbfOovXXV7b1 HgJo31Q72f IHdpZHRoPSIxNSUiIHZhbG zjon8txG9hAn2+PGNvbCB3 iUZ8fU7nTxGjOlK4BRogE4 49InRvcCIv Tdcxf6zcf5uqaGe7JhDvDH EzbvWriFenNKL4j4LfIg80 O5WabBmxf7EzZcd1da69mB Brl9O2dDO1 D3KwIJLnjbqdxOYnfUviWT 1zTSEkdhasHAUfbQ1rEYHu R3z4QjXpHwK8ZAowK4Exil S1SPMmgDDy THGkrAEBtZ2xsstqj0ccrf ocTkMhMNUcTKn8UUj3QWJp eApoNeDuCJT3LiU3WUL4eX RmbH4vmZck eptprV2uSkv+JMT5zMNpnK VNCM1yQddfrTQ+PHRkIHN0 oCniZOdxMWSkzR7pWZCuR6 m4TpYoTfY7 LHlcR1YwqlQ4OVZteUTpTS McmYBYcE2iebmbt7oomdvs NjZcMJBoBYz8SCk9DCGxhL duOiBsZWZ0 LgA7YWY3nSDekB7mwQjtxc fvyF2zJai+QmlydGggRGF0 FDg1B4JeRwq0UHIaqXrqUM 0ncGFkZGlu Sv0abJyrtLlgVM1gIZJtyo itc708MyBlh6jfEODfjYPd WCuiHUL5G28mh2U5WWQkBR ZfSVS0xNM2 fJ2nwJurggqquENypElqay PutMddORjxCMmgZ866TEYp jNvrDwYgUAb0V9MsPmx8RY WsiNlcOB4b jWYmFSalFk0esHstbZcmJT 8vHZRhmosis780RcVma1gk MERxtILcCOttODF9H66wf6 V4TXOnRBZs XWA9oBH2nO4ohNfpzvvcxV VmdDsgdmVydGljYWwtYWxp F860SNJxlUzpDxAjiFa5R0 OeMpi8TYYt dGsnYW0wlSAcUBiwPf0hcX geaVbdRN8qHMFpmigro541 CsRdl4qbWTFglLLiUKsxFS C2U87sb1C6 PBBiJDNmORZ6uDV0tI0teL lnbjogbGVmdDsgdmVydGlj JNxgCTvjF501MFFghDfdCq BhdGllbnQg CAdtUKf2W0PaMmgxcLI+PC 13DXPsBZ44iUFhdONhv4kp lEl9ZvKaCCUnYUV9xIffXK fid3FoYJZg A57bzLIee8O4YYNneStqyY EkHpRsuTM7mN7tAMisufnb g7efeiraDmkim0odfh52wP 56Y28dQBsi ZHRoPSIzMCUiIHZhbGlnbj 9lqY7dEy6+WQWjmUW9fYT5 fW8uNPCgDgV7WQbgU330Ut RvcCIvPjxj i2zyg7aujNo4NkZ5XPDoqi AgqGseVRW2t9AyEo76F74n IHdpZHRoPSIyMCUiIHZhbG ivyl0rkM7u Ii8+VGTtfXP4fBY7dM5xHl ReCaK6PCdkH968GpNupEQs WnadZ19kJ6OspFU+PHRyPj j2QRUqcBtk PG0pnRAkNNtaQn0dQTV5Dl WeAdDwBBgvX0NxDLJwmhps qlqwwNP0KSHaBVGjyM39Em 9udDogMTBw cVHWaE4xlzisg8vlglpyGy DeWKXsLFq9UOa2QHIqzKrh HmBoVDQ5HjY7JRG5fYQpkP 1hbGlnbjog cZ8qW2DtJQKiqlkcPm81qE 1qBuWrYvV0VPcmGft+REVB MfceC5aVEXgOKXPXIU75HO 90cSYmg9Z6 tOM9R4GuBYEdwnivksopnC O7XORyWARmeO88xHLiENcl Lr9sr9Z6q124ELJxNGUifP 56Zf2mrFvc ETRrxSXHkW0bznlvj6dett dkJqCyDIZeAKz8CVv9DJPn iOumTlDgPSL4MkV4JTY7rX GrbW7zmKfr auojcJ6bMjd+MDMvMjcvMT y2RXvmiNN+VAEnLIX9mAjz ZNtbRAVdnX7gWVXlP1n3Fu MmZcJ7YOup R4CfBSGfuxzfMv35sM4kSx ZwOxC1KEyzA4AsamJ1NXAo eVEyQHeoCSZ2Q20gy1H5SV MwMDAwMDA7 zIA8iI1faMypgkjpmFOfsN gkuzOarEjlWUkoLVxvE333 IHRvcDsnPjczIFllYXJzPC 91JX80fZZf y3S8pPJ6Y5IjWRRcutregg uorSV9FKFyFHBlsH73rKYd RIygXg0io3G1b583CXVmXX PqgG15Gz7o kTpoABNxsGNKhM0vgzuea5 kuwdxkYoGfICOiHVy5FSj8 WHEswMumFiHcFEB2JgK5ED Z4jEUjdT2v yTtnciipjV6mNfv+TWFsZT wvdGQ+ZHFsWJW5vWqrBSka RATjzY0gRKZcJ5u5NbSqPj G3JIhzB1In MHEptklxZq67pA4cTsBrDv D1FApaT4GxwxA1TAFrlYYv MEbbQAR8O67bk9I9TOEnRG VmRIE7lXN2 jT6lrBhuabyucRMiuOzkgu SgjVvrYMpfPNyoO377IBSn yJbmLs75aQYcgYqmqvW0C2 RkPjwvdHI+ NF69ZGBdVF23dMUanWQlx9 zxnCf3OpYqJQIlPLY7gKqd JKhkj1PiOYIyK46dvPOms4 Z9BREesJim xCWoDuLhxBJ1pV7lKGjiha nip5uokiwmLhydx1ztyt55 iL94N09xWVijUCBvYSDfUY UiIHZhbGln li8lmT2lBx3+JZOkdDA3hA L4fO9lCzIjZfI1YFezA909 OwDjcVAmOqpye4myr4mpuA x6MmDlECJa oiMovRkaKAX3o4IdWj04K2 9sIHdpZHRoPSIyMCUiIHZh zYcamy5xuB4hWe2+PC9jb2 iain92gL50 dHI+MCQiGDZ7cFfbASbkXD PzaU4vXKnrZlZ0GWFvMeOc yF54bAZyNVbjNd7aeGonwJ ilSM7qEBZo cjblp091ZuYkx8tmWFXwdV LfIHadWDI6S54ij7Y1QEKc OYCsKSK5aLR4hZ5zsGpolo ogbGVmdDsg llOwyCjhAPsbCZiaO369QK OriWhyEkXytHDxA3anuhJD YN1kPaloqYU+PXDfGIG3uZ xlPSdwYWRk rQ7cXZAiX1j1KfXxSvV3VY afO7HengD5DPPfcFClSDMa nUSDeA5ymtfgg0oqqysuPd AwMDAwMDt0 IMa3OXTwdWxbSpMxZWX0Ql B7JNG8lBAcrJ6fiVlswemp eO2ePse+RklOOjwvdGQ+PH TrXRA7hGnh UKnbGNLmwB5zRASmE9p9Xs GrIqA7LFleU8VsqhJ5OCGk rOTbALOojNZQvQ7jofihr1 xvcjogIzAw PWEwDTm1JNh7VWYmxVufNb NzSHS9QxT6OUW7gPCzvX0c bPsooadznF5uKcr+TVJOOj wvdGQ+PHRk WTX9mBpfGGirKGYxwJ9jIV GxB0w6JdUdOuQ2WDqcO1Gd roJ0IHNwhBXhCPVpbNXDpB 3ryupju6pg erkzFaXmDCJpKAk4ZHl1MS SogZrjZgLeKZV4RqK5OMY1 oJBthG8jsJlshufirR4dNq c+BAG4HQC4 ON35FT17M4CnBveumZAayX U+PHRhYmxlIHdpZHRoPScx NOAbDjZlgZnpJU3fDh6gZU VyLWNvbGxh cHNlOiBj (more content not included)... Normal [facility] Family Medicine Office/Clini c Noteon 04-28-2023 Family Medicine Office/Clinic Note Chief Complaint cough, chest congestion HPI Staff chest congestion, cough C/O: Duration: over a week Body aches: no Chills: no Fatigue: yes Cough: yes Sore throat: no Fever: no Headache: no Nasal congestion: yes Loss of taste: no Loss of smell: no Eye itching/watering: no Sneezing: no SOB: yes Known Exposure: no tried coricidin questions/conerns: History of Present Illness pt presents today for follow up on cough. Dr. March told him if he was still coughing to come in today. Review of Systems PHQ Score Initial Depression Screen Score: 0 ROS - Provider Constitutional: no fever, no chills, no sweats, no fatigue Respiratory: no shortness of breath, yes cough, yes orthopnea, no wheezing. Cardiovascular: no chest pain, no palpitations, no edema. Neurologic: no headache, no dizziness, no numbness, no weakness. Physical Exam Vitals & Measurements T: 36.6 ?C(Oral) HR: 62(Peripheral) RR: 16 BP: 140/78 SpO2: 95% HT: 76 in HT: 193 cm WT: 128.50 kg WT: 282.7 lb BMI: 34.5 General: alert, no acute distress ENMT: oral mucosa moist, no pharyngeal erythema or exudate Cardiovascular: regular rate and rhythm, normal peripheral perfusion Respiratory: Lungs expiratory wheezes, respirations non labored Extremities: no deformity, no trauma Neurological: oriented x 4, LOC appropriate for age, CN II-XII intact, motor strength equal & normal bilaterally, speech normal Assessment/Plan 1. Cough (R05.9: Cough, unspecified) pt presents for follow up on cough. he had chest x ray on 10/[address] March suspected CHF. Lung sounds are much improved since last visit. and pt states he is feeling a little better today. He is still coughing especially at night and feels some dizziness when coughing spells hit. Will order tessalon pearls and pt will remain off of work today and tomorrow, reviewed chest and spine xray results Ordered: benzonatate, 200 mg = 1 cap(s), Oral, TID, X 10 day(s), # 30 cap(s), Refills(s) 0, [id number], 193, cm, 10/18/22 13:04:00 EDT, Height/Length Dosing, 128.5, kg, 10/18/22 13:04:00 EDT, Weight Dosing 2. BMI 34.0-34.9,adult (Z68.34: Body mass index [BMI] 34.0-34.9, adult) BMI education complete Ordered: benzonatate, 200 mg = 1 cap(s), Oral, TID, X 10 day(s), # 30 cap(s), Refills(s) 0, Pharmacy: [facility]/pharm[facility] #[id number], 193, cm, 10/18/22 13:04:00 EDT, Height/Length Dosing, 128.5, kg, 10/18/22 13:04:00 EDT, Weight Dosing Body Mass Index (BMI) documented 3008F Current tobacco non-user 1036F Depression Screening Negative 3352F Influenza immunization administered or previously received 4274F Most recent diastolic blood pressure <80 mm Hg 3078F Most recent systolic blood pressure >= 140 mm Hg 3077F Patient screen for fall risk: no falls in last year or 1 fall with no injury in last year 1101F 3. Class 1 obesity due to excess calories in adult (E66.09: Other obesity due to excess calories) see above Ordered: benzonatate, 200 mg = 1 cap(s), Oral, TID, X 10 day(s), # 30 cap(s), Refills(s) 0, [id number], 193, cm, 10/18/22 13:04:00 EDT, Height/Length Dosing, 128.5, kg, 10/18/22 13:04:00 EDT, Weight Dosing Body Mass Index (BMI) documented 3008F Current tobacco non-user 1036F Depression Screening Negative 3352F Influenza immunization administered or previously received 4274F Most recent diastolic blood pressure <80 mm Hg 3078F Most recent systolic blood pressure >= 140 mm Hg 3077F Patient screen for fall risk: no falls in last year or 1 fall with no injury in last year 1101F Follow-up No qualifying data available Problem List/Past Medical History Ongoing Acute bilateral low back pain with right-sided sciatica Arthritis Back pain Benign paroxysmal positional vertigo, unspecified laterality BMI 34.0-34.9,adult BPH with urinary obstruction Chronic prostatitis Cough Former smoker Gross hematuria History of prostate cancer Hyperlipidemia Hypertension Impotence Incomplete bladder emptying Intermittent self-catheterization of bladder Left varicocele Microscopic hematuria Non-smoker Pyelonephritis Renal mass Scrotal swelling SOB (shortness of breath) Historical No qualifying data Procedure/Surgical History Colonoscopy (01/10/2021), EGD - Esophagogastroduodenos copy (01/10/2021), Cystourethroscopy with dilation of urethral stricture (05/07/2017), Brachytherapy (09/19/2016), TURP - Transurethral resection of prostate (04/11/2016), Cystoscopy (04/02/2016), Transrectal biopsy of prostate using ultrasound (US) guidance (07/04/2015), Appendectomy, External beam radiotherapy, Procedure on back. Medications Albuterol (Eqv-ProAir HFA) 90 mcg/inh inhalation aerosol, 2 puff(s), Inhalation, q6hr, 3 refills albuterol 0.083% Inh Mary 3 mL, 2.5 mg= 3 mL, NEB, q4hr Antivert 12.5 mg Tab, 12.5 mg= 1 tab(s), Oral, TID, PRN aspirin 81 mg Oral EC Tab atenolol 50 mg Tab, 50 mg= 1 tab(s), Oral, BID, 3 ref (more content not included)... Normal [facility] Comment on above: Result Comment: Elec tronically Signed By: Sebastián SIMON, Pau Ponce\.br\Date and Time Signed: 10/18/22 13:29 EDT Provider Letteron 10-18-2022 Provider Letter October 18, [address] [place] [id number] RABIAMILAN Horowitz 1950 To Whom It May Concern, Please excuse above patient from work. Date of Illness: From: 10-17-22 To: 10-18-22 May Return to Work On: 10-24-22 Restrictions: _ Comments: _ Sincerely, [address] [id number] Nestor Nicolas [facility] Family Medicine Office/Clini c Noteon 10-16-2022 Family Medicine Office/Clinic Note HPI Staff Milan is a 72 year old male who presents for chest congestion and a cough. Symptoms started- Friday10/05/22 Headache- on occasion Body aches- no Earache- none Runny/stuffy nose- in the beginning but not currently Problem with Smell- no Problem with Taste-no Sore throat- no Cough- present Scratchy tickly throat- no Chest symptoms- congestion, wheezing BLEVINS- present Orthopnea- no Lung Hx asthma, bronchitis, chest colds- COPD, pneumonia, bronchitis Fever/chills- none GI symptoms- no COVID exposure- not that pt is aware of OTC tx- Coricidin cough and cold Pt was given a zpak and medrol dose raimundo at his previous office visit on 10/07/22. Pt was given the zpak from his local pharmacy but the zpak and medrol dose raimundo were sent to his mail order pharmacy. He completed the one rx from his local pharmacy but brings the two packs from his mail order as they arrived a week later. He states he feels like the zpak broke things up a little bit other than that pt has not had much relief. History of Present Illness Milan Camarillo is a 72-year-old male here for an evaluation of a cough. He completed taking the COPD rescue pack. He denies any lower extremity edema. He reports shortness of breath with exertion and non-productive cough He has been taking tyco-ehk-xssgtyk cough with some relief. His shortness of breath is not exacerbated with laying down, but is worsening. He utilizes 1 pillow to sleep at night. He denies a history of congestive heart failure. 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 He follows up with Dr. Tripp for his COPD. He does self-catheterize himself 2 to 3 times a day. Review of Systems PHQ Score Initial Depression Screen Score: 0 Physical Exam Vitals & Measurements T: 36.7 ?C(Oral) HR: 59(Peripheral) BP: 164/80 SpO2: 96% HT: 76 in HT: 193 cm WT: 125.25 kg WT: 275.55 lb BMI: 33.63 General: alert, no acute distress Cardiovascular: regular rate and rhythm, normal peripheral perfusion Respiratory: Crackles at both bases. Rales noted diffusely. Extremities: no deformity, no trauma. 1+ pitting edema in bilateral lower extremities. Neurological: oriented x 4, LOC appropriate for age, CN II-XII intact, motor strength equal & normal bilaterally, speech normal Assessment/Plan 1. Chronic obstructive pulmonary disease, unspecified COPD type (J44.9: Chronic obstructive pulmonary disease, unspecified) I do not believe that this is COPD exacerbation given that the patient has already been on a Z-Raimundo and azithromycin. Despite taking both those medications, the patient continues to be short of breath and given physical exam findings, I do believe that this may be more congestive heart failure. We will order basic lab work and chest x-ray to double check and make sure that is what we are hearing. 2. Cough (R05.9: Cough, unspecified) 3. SOB (shortness of breath) (R06.02: Shortness of breath) Again, I believe that this is most likely secondary to congestive heart failure. We will order basic lab work and a chest x-ray to confirm. The patient looks like he is having an episode of congestive heart failure. We will have him scheduled with our dining room supervisor and we will order an echo. The patient will be prescribed Lasix and we will continue to monitor. The patient has been made aware of this and is on his way to get testing done at this time. ATTESTATION: Documentation services were performed after patient or guardian consented to allow [facility] [employer] to record this visit. 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 ANGEL: Amanda Sidhu Follow-up No qualifying data available Problem List/Past Medical History Ongoing Acute bilateral low back pain with right-sided sciatica Arthritis Back pain Benign paroxysmal positional vertigo, unspecified laterality BMI 34.0-34.9,adult BPH with urinary obstruction Chronic prostatitis Cough Former smoker Gross hematuria History of prostate cancer Hyperlipidemia Hypertension Impotence Incomplete bladder emptying Intermittent self-catheterization of bladder Left varicocele Microscopic hematuria Non-smoker Pyelonephritis Renal mass Scrotal swelling SOB (shortness of breath) Historical No qualifying data Procedure/Surgical History Colonoscopy (01/10/2021), EGD - Esophagogastroduodenos copy (01/10/2021), Cystourethroscopy with dilation of urethral stricture (05/07/2017), Brachytherapy (09/19/2016), TURP - Transurethral resection of prostate (04/11/2016), Cystoscopy (04/02/2016), Transrectal biopsy of prostate using ultrasound (US) guidance (07/04/2015), Appendectomy, External beam radiotherapy, Procedure on back. Medications Albuterol (Eqv-ProAir HFA) 90 mcg/inh inhalation aerosol, 2 puff(s), Inhalation, q6hr, 3 refills albuterol 0.083% Inh Mary 3 mL, 2.5 mg= 3 mL, NEB, q4hr Antivert 12.5 mg Tab, 12.5 mg= 1 tab(s), Oral, TID, PRN aspirin 81 mg Oral EC Tab atenolol 50 mg Tab, 50 mg= 1 tab(s), Oral, BI (more content not included)... Normal [facility] Comment on above: Result Comment: Elec tronically Signed By: Erasmo CHOPRA, Raegan Adler\.br\Date and Time Signed: 10/16/22 08:08 EDT\.br\Electronically Co-Signed By: Amanda Sidhu\.br\Date and Time Co-Signed: 10/15/22 14:21 EDT XR Spine Lumbosacral Minimum 4 Viewson 10-16-2022 XR Spine Lumbosacral Minimum 4 Views Exam Date/Time: 10/15/2022 14:55 EDT Reason for Exam: M54.9 dorsalgia, unspecified M19.90 unspecified osteoarthritis,unspeci fied site;Back pain Report IMPRESSION: There are moderate degenerative changes of the lumbar spine. CLINICAL HISTORY: Back pain, M54.9 dorsalgia, unspecified M19.90 unspecified osteoarthritis,unspeci fied site 6 views COMPARISON: NONE FINDINGS: There are no lytic or sclerotic lesions. There is no acute fracture or subluxation. The visualized bones are demineralized. There is mild loss of vertebral body height at L1 and involving superior articular surface of L4 which may be chronic. Status post interspinous device placement at L3-4. There is preservation of the lordotic curvature of the lumbar spine. There is moderate intervertebral disc space narrowing The SI joints are symmetric. There are metallic implants in the prostate, brachytherapy. There are degenerative changes with joint space narrowing of the bilateral hips indicating osteoarthritis. Ordering Provider: Raegan March FINAL REPORT Dictated: 10/16/2022 10:28 am Philip Soriano MD, V. Signed (Electronic Signature): 10/16/2022 10:28 am Signed by: Philip Soriano MD, V. Transcribed by: BRANDON Technologist: AGUSTIN Technical Comments Radiation Dose: Ka,r in mGy = na DAP = na Normal Nicolas [facility] Ambulatory Visit Summaryon 0 10-15-2022 Ambulatory Visit Summary RABIAMILAN :1950 Visit Date:10/15/2022 Ambulatory Visit Instructions Your Diagnosis Chronic obstructive pulmonary disease, unspecified COPD type Cough SOB (shortness of breath) Your Care Team Attending Physician - Raegan March MD Primary Care Physician - Raegan March MD This Is Your Medications List albuterol (Albuterol (Eqv-ProAir HFA) 90 mcg/inh inhalation aerosol) albuterol (albuterol 0.083% Inh Mary 3 mL) aspirin (aspirin 81 mg Oral EC Tab) atenolol (atenolol 50 mg Tab) atorvastatin (atorvastatin 40 mg Tab) cholecalciferol (Vitamin D3 2000 intl units) furosemide (furosemide 20 mg Tab) glipiZIDE (glipiZIDE 2.5 mg ER Tab) ibuprofen (ibuprofen 200 mg Tab) imipramine (imipramine 50 mg oral tablet) irbesartan (irbesartan 75 mg Tab) meclizine (Antivert 12.5 mg Tab) metformin (metformin 500 mg Tab) olodaterol-tiotropium (Stiolto Respimat 2.5 mcg-2.5 mcg inhalation aerosol) omega-3 polyunsaturated fatty acids (Fish Oil 1000 mg oral capsule) ropinirole (ropinirole 0.5 mg Tab) tamsulosin (tamsulosin 0.4 mg Cap) terazosin (terazosin 2 mg Cap) Procedures Performed Colonoscopy (01/10/2021), EGD - Esophagogastroduodenos copy (01/10/2021), Cystourethroscopy with dilation of urethral stricture (05/07/2017), Brachytherapy (09/19/2016), TURP - Transurethral resection of prostate (04/11/2016), Cystoscopy (04/02/2016), Transrectal biopsy of prostate using ultrasound (US) guidance (07/04/2015), Appendectomy, External beam radiotherapy, Procedure on back. Discharge Vitals Temperature (Oral) 36.7 ?C Heart Rate (Peripheral) 59 Blood Pressure 164/80 Height 193 cm Height 76 in Weight 125.25 kg Weight 275.55 lb BMI 33.63 What to do next Scheduled Follow-Up Appointments Friday 7:00 AM EDT With: Raegan March MD Where: [facility] Invalid Interpretation Code Cough [facility] Auto Diffon 10-15-2022 Basophils/100 WBC (Bld) 1.2 % Normal 0.0-2.0 [facility] Comment on above: Order Comment: Order Added by Discern Expert. Performed By: #### 1 [id number], [id number], [id number] #### [facility] [address] [place] [address] Basophils/Leukocyt es Auto (Bld) [Pure # fraction] 0.1 E9/L Normal 0.0-0.2 [facility] Comment on above: Order Comment: Order Added by Discern Expert. Performed By: #### 1 [id number], [id number], [id number], [id number] #### [facility] [address] [place] [address] Eosinophils/100 WBC (Bld) 3.5 % Normal 0.0-8.0 [facility] Comment on above: Order Comment: Order Added by Discern Expert. Performed By: #### 1 [id number], [id number], [id number], [id number], [id number] #### [facility] [address] [place] [address] Eosinophils/Leukoc ytes Auto (Bld) [Pure # fraction] 0.3 E9/L Normal 0.0-0.5 [facility] Comment on above: Order Comment: Order Added by Discern Expert. Performed By: #### 1 [id number], [id number], [id number], [id number] #### [facility] [address] [place] [address] Lymphocytes/100 WBC (Bld) 15.0 % Normal 14.0-50.0 [facility] Comment on above: Order Comment: Order Added by Discern Expert. Performed By: #### 1 [id number], [id number], [id number], [id number], [id number] #### [facility] [address] [place] [address] Lymphocytes/Leukoc ytes Auto (Bld) [Pure # fraction] 1.1 E9/L Normal 1.0-4.0 [facility] Comment on above: Order Comment: Order Added by Discern Expert. Performed By: #### 1 [id number], [id number], [id number], [id number], [id number], [id number] #### [facility] [address] [place] [address] Monocytes/100 WBC (Bld) 10.1 % Normal 4.0-14.0 [facility] Comment on above: Order Comment: Order Added by Discern Expert. Performed By: #### 1 [id number], [id number], [id number], [id number], [id number], [id number] #### [facility] [facility] [address] [place] [address] 32856 Monocytes/Leukocyt es Auto (Bld) [Pure # fraction] 0.8 E9/L Normal 0.2-1.0 [facility] Comment on above: Order Comment: Order Added by Discern Expert. Performed By: #### 1 [id number], 3814588, 0398055, 63989480, 3084634, 12065947 #### [facility] [address] [place] [address] 44605 Neutrophils/100 WBC (Bld) 70.2 % Normal 36.0-75.0 [facility] Comment on above: Order Comment: Order Added by Discern Expert. Performed By: #### 1 [id number], 5445852, 0191739, 75956227, 0364875, 42983559 #### [facility] [address] [place] [address] Neutrophils/Leukoc ytes Auto (Bld) [Pure # fraction] 5.4 E9/L Normal 2.0-7.5 [facility] Comment on above: Order Comment: Order Added by Discern Expert. Performed By: #### 1 1879912, 4618684, 1328187, 95204035, 6969349, 67080781 #### [facility] [address] [place] [address] BNPon 10-15-2022 Int Ctr BNP Pass Normal [facility] Comment on above: Performed By: #### 1 9358152, 1533425, 7374246, 74404778, 3140738, 30739269 #### [facility] [address] [place] [address] 10820 Natriuretic peptide B (Bld) [Mass/Vol] 21 pg/mL Normal 5-80 [facility] Comment on above: Performed By: #### 1 3736050, 3567848, 6062593, 30079234, 8296870, 60030394 #### [facility] [address] [place] [address] 96054 CBC w/ Auto Diffon Erythrocyte distribution width (RBC) [Ratio] 14.7 % High 10.9-14.2 [facility] Comment on above: Performed By: #### 1 8492832, 0466079, 5494128, 47529841, 1858435, 38942522 #### [facility] [address] [place] [address] Hematocrit (Bld) [Volume fraction] 40.3 % Normal 37.7-49.0 [facility] Comment on above: Performed By: #### 1 9776108, 5479181, 5371062, 08327624, 3357229, 18260815 #### [facility] [address] [place] [address] Hemoglobin (Bld) [Mass/Vol] 13.7 g/dL Normal 13.5-17.5 [facility] Comment on above: Performed By: #### 1 8284464, 6279999, 9363585, 64576504, 3263218, 68777999 #### [facility] [address] [place], [place] [address] MCH (RBC) [Entitic mass] 28.8 pg Normal 27.0-34.0 [facility] Comment on above: Performed By: #### 1 3313129, 7290603, 3262497, 66903781, 0602948, 83181628 #### [facility] [address] [place] [address] MCHC (RBC) [Mass/Vol] 33.9 g/dL Normal 31.4-36.0 [facility] Comment on above: Performed By: #### 1 7485075, 5975580, 2747245, 58917585, 5341480, 99963931 #### [facility] [address] [place] [address] MCV (RBC) [Entitic vol] 85.1 fL Normal 80.0-100.0 [facility] Comment on above: Performed By: #### 1 3273914, 3823490, 7921657, 56725358, 8295583, 42260604 #### [facility] [address] [place] [address] 78307 Platelet mean volume (Bld) [Entitic vol] 9.4 fL Normal 6.4-10.8 [facility] Comment on above: Performed By: #### 1 9985791, 3768810, 4406968, 30038960, 2200732, 46850491 #### [facility] [address] [place] [address] Platelets (Bld) [#/Vol] 212.0 E9/L Normal 150.0-500.0 [facility] Comment on above: Performed By: #### 1 4050826, 6780512, 6065384, 92458169, 1752920, 11798683 #### [facility] [address] [place], [place] [address] RBC (Bld) [#/Vol] 4.7 E12/L Normal 4.3-5.9 [facility] Comment on above: Performed By: #### 1 9772990, 1590881, 6090658, 32793070, 9135682, 69222218 #### [facility] [address] [address]57257 WBC corrected for nucl RBC Auto (Bld) [#/Vol] 7.7 E9/L Normal 4.0-11.0 [facility] Comment on above: Performed By: #### 1 5090657, 8692167, 2366006, 69378645, 5225386, 45041312 #### [facility] [address] [address]57[address] CMPon 10-15-2022 Albumin [Mass/Vol] 4.0 g/dL Normal 3.3-5.0 [facility] Comment on above: Performed By: #### 1 3196196, 6027021, 7782216, 06599042, 7245841, 22645751 #### [facility] [address] [address]57[address] Albumin/Globulin (S) [Mass conc ratio] 1.0 Low 1.1-2.2 [facility] Comment on above: Performed By: #### 1 1414576, 1459520, 2527047, 26008590, 7814673, 11599184 #### [facility] [address] [address] ALP [Catalytic activity/Vol] 76 Int._Unit/L Normal 21-98 [facility] Comment on above: Performed By: #### 1 3756351, 6963430, 7063671, 55462402, 0766844, 34418056 #### [facility] [address] [address] ALT No additional P-5'-P [Catalytic activity/Vol] 26 Int._Unit/L Normal 6-46 [facility] Comment on above: Performed By: #### 1 9365827, 3221381, 6376740, 90382472, 7284399, 72701181 #### [facility] [address] [place] [address] Anion gap [Moles/Vol] 13 mmol/L Normal 6-16 [facility] Comment on above: Performed By: #### 1 9872575, 0028749, 0563131, 51371075, 2304950, 65067973 #### [facility] [address] [place] [address] AST [Catalytic activity/Vol] 20 Int._Unit/L Normal 5-43 [facility] Comment on above: Performed By: #### 1 5137298, 2390737, 6294488, 82160086, 6046704, 85856967 #### [facility] [address] [place] [address] Bilirubin [Mass/Vol] 0.5 mg/dL Normal 0.0-1.1 [facility] Comment on above: Performed By: #### 1 3132510, 0768913, 7173194, 96014231, 9942104, 82982100 #### [facility] [address] [place] [address] 52911 Calcium [Mass/Vol] 9.0 mg/dL Normal 8.9-11.1 [facility] Comment on above: Performed By: #### 1 9143123, 2280509, 2989996, 56056766, 0514061, 18257754 #### [facility] [address] [place] [address] Chloride [Moles/Vol] 104 mmol/L Normal 101-111 [facility] Comment on above: Performed By: #### 1 4362580, 4107530, 7824612, 46634061, 9421266, 11698235 #### [facility] [address] [place] [address] CO2 [Moles/Vol] 22 mmol/L Normal 21-31 [facility] Comment on above: Performed By: #### 1 1107170, 3973725, 9626235, 30255177, 1848683, 95101855 #### [facility] [address] [place] [address] Creatinine [Mass/Vol] 1.1 mg/dL Normal 0.5-1.3 [facility] Comment on above: Performed By: #### 1 8671940, 6136541, 6424963, 36451441, 8809850, 39481217 #### [facility] [address] [place] [address] Globulin (S) [Mass/Vol] 3.9 g/dL Normal 1.4-4.0 [facility] Comment on above: Performed By: #### 1 8677031, 9094700, 7206520, 82112778, 8894061, 96959334 #### [facility] [address] [place] [address] Glucose [Mass/Vol] 92 mg/dL Normal 55-199 [facility] Comment on above: Result Comment: If t his glucose result represents a fasting glucose, interpretation should refer to the following reference range: 55-99 mg/dL Performed By: #### 1 4687012, 1827299, 7305667, 52315119, 2391200, 39696818 #### [facility] [address] [place] [address] Potassium [Moles/Vol] 3.7 mmol/L Normal 3.5-5.3 [facility] Comment on above: Performed By: #### 1 4308216, 6789888, 6073440, 06087611, 7417857, 82476773 #### [facility] [address] [place] [address] Protein [Mass/Vol] 7.9 g/dL High 6.0-7.8 [facility] Comment on above: Performed By: #### 1 4925069, 0446481, 9061666, 30403668, 1194244, 49115525 #### [facility] [address] [place] [address] Sodium [Moles/Vol] 135 mmol/L Normal 135-145 [facility] Comment on above: Performed By: #### 1 9543305, 1495191, 2006893, 90420293, 7699131, 67799634 #### [facility] [address] [place] [address] Urea nitrogen [Mass/Vol] 13 mg/dL Normal 5-21 [facility] Comment on above: Performed By: #### 1 8124003, 7097144, 7883029, 85386966, 0411842, 52725747 #### [facility] [address] [place] [address] Urea nitrogen/Creatinin e [Mass ratio] 12 No Units Normal 10-20 [facility] Comment on above: Performed By: #### 1 3876679, 8552310, 6528663, 58592624, 5634944, 29408911 #### [facility] [address] [place] [address] Consent for Treatmenton 09-22 Consent for Treatment [id number] 0CD:127 Normal [facility] PSA Screen, Totalon 10-16-19 23 Prostate specific Ag [Mass/Vol] ng/mL Normal 0.1-3.5 [facility] Comment on above: Result Comment: The concentration of PSA determined by different manufacturers can vary due to differences in assay methods and reagent specificity. Values obtained from different assay methods cannot be used interchangeably. The methodology used for this result was chemiluminescence using [employer] PSA reagent. Performed By: #### 1 4896882, 2712256, 4598910, 30276050, 8158857, 02973713 #### [facility] [address] [place] [address] XR Chest 2 Viewson 3 XR Chest 2 Views Exam Date/Time: 10/15/2022 14:55 EDT Reason for Exam: J44.9 chronic obstructive pulmonary disease unspecified R05.9 cough, unspecified;Shortness of breath (SOB) Report IMPRESSION: NO EVIDENCE OF ACTIVE CARDIOPULMONARY DISEASE. SUSPECT COPD, WHICH IS BEST EVALUATED CLINICALLY. EXAM: XR Chest 2 Views DATE: 10/15/2022 CLINICAL HISTORY: Shortness of breath (SOB), J44.9 chronic obstructive pulmonary disease unspecified R05.9 cough, unspecified. COMPARISON: None available. TECHNIQUE: Upright PA and lateral radiographs of the chest were obtained. FINDINGS: Mild hyperinflation is suggestive of COPD, which is best evaluated clinically. There is no clinical infiltrate, pleural effusion, vascular congestion, pneumothorax, cardiomegaly, or displaced fractures identified. An approximately 6 mm densely calcified granuloma is suspected within the inferolateral right lung base. Ordering Provider: Raegan March FINAL REPORT Dictated: 10/15/2022 2:59 pm Fabien Witt MD Signed (Electronic Signature): 10/15/2022 2:59 pm Signed by: Fabien Witt MD Transcribed by: BRANDON Technologist: AGUSTIN Technical Comments Radiation Dose: bennie Stahl in mGy = na DAP = na Normal [facility] eGFRon 10-15-2022 GFR/1.73 sq M.predicted among non-blacks MDRD (S/P/Bld) [Vol rate/Area] 71 mL/min/1.73 m2 Normal >=59 [facility] Comment on above: Order Comment: Order added by Discern Expert. Result Comment: [employer] General Supervisor kya kidney disease could be indicated at eGFR's of less than 60 mL/min/1.73m2. Kidney failure is indicated at less than 15 mL/min/1.73m2. Performed By: #### 1 5767558, 2057895, 7331323, 92820085, 6341065, 24440868 #### [facility] [address] [place] [address] Ambulatory Visit Summaryon 0 10-07-2022 Ambulatory Visit Summary MILAN CAMARILLO :1950 Visit Date:10/07/2022 Ambulatory Visit Instructions Your Diagnosis BMI 33.0-33.9,adult Class 1 obesity due to excess calories in adult Your Care Team Attending Physician - Raegan March MD Primary Care Physician - Raegan March MD This Is Your Medications List albuterol (Albuterol (Eqv-ProAir HFA) 90 mcg/inh inhalation aerosol) albuterol (albuterol 0.083% Inh Mary 3 mL) aspirin (aspirin 81 mg Oral EC Tab) atenolol (atenolol 50 mg Tab) atorvastatin (atorvastatin 40 mg Tab) cholecalciferol (Vitamin D3 2000 intl units) cholecalciferol (Vitamin D3) famotidine (famotidine 20 mg Tab) furosemide (furosemide 20 mg Tab) glipiZIDE (glipiZIDE 2.5 mg ER Tab) ibuprofen (ibuprofen 200 mg Tab) imipramine (imipramine 50 mg oral tablet) irbesartan (irbesartan 75 mg Tab) meclizine (Antivert 12.5 mg Tab) metformin (metformin 500 mg Tab) olodaterol-tiotropium (Stiolto Respimat 2.5 mcg-2.5 mcg inhalation aerosol) omega-3 polyunsaturated fatty acids (Fish Oil 1000 mg oral capsule) ropinirole (ropinirole 0.5 mg Tab) tamsulosin (tamsulosin 0.4 mg Cap) terazosin (terazosin 2 mg Cap) Procedures Performed Colonoscopy (01/10/2021), EGD - Esophagogastroduodenos copy (01/10/2021), Cystourethroscopy with dilation of urethral stricture (05/07/2017), Brachytherapy (09/19/2016), TURP - Transurethral resection of prostate (04/11/2016), Cystoscopy (04/02/2016), Transrectal biopsy of prostate using ultrasound (US) guidance (07/04/2015), Appendectomy, External beam radiotherapy, Procedure on back. Discharge Vitals Temperature (Oral) 36.8 ?C Heart Rate (Peripheral) 69 Respiratory Rate 20 Blood Pressure 132/84 Height 193 cm Height 76 in Weight 126.50 kg Weight 278.3 lb BMI 33.96 Medications What How Much When Instructions Unchanged albuterol (Albuterol (Eqv-ProAir HFA) 90 mcg/ inh inhalation aerosol) 2 Puffs Inhalation Every 6 hours Unchanged albuterol (albuterol 0.083% Inh Mary 3 mL) 3 Milliliter Nebulized inhalation (aerosol) Every 4 hours Unchanged aspirin (aspirin 81 mg Oral EC Tab) Unchanged atenolol (atenolol 50 mg Tab) 1 Tablets By Mouth 2 times a day Unchanged atorvastatin (atorvastatin 40 mg Tab) 1 Tablets By Mouth Every day Unchanged cholecalciferol (Vitamin D3 2000 intl units) Unchanged cholecalciferol (Vitamin D3) Unchanged famotidine (famotidine 20 mg Tab) 1 Tablets By Mouth Every day Unchanged furosemide (furosemide 20 mg Tab) 1 Tablets By Mouth 2 times a day Unchanged glipiZIDE (glipiZIDE 2.5 mg ER Tab) 1 Tablets By Mouth Every day Unchanged ibuprofen (ibuprofen 200 mg Tab) Unchanged imipramine (imipramine 50 mg oral tablet) 1 Tablets By Mouth 3 times a day Unchanged irbesartan (irbesartan 75 mg Tab) 1 Tablets By Mouth Every day Unchanged meclizine (Antivert 12.5 mg Tab) 1 Tablets By Mouth 3 times a day as needed for Dizziness Unchanged metformin (metformin 500 mg Tab) 1 Tablets By Mouth 2 times a day Unchanged olodaterol-tiotropium (Stiolto Respimat 2.5 mcg-2.5 mcg inhalation aerosol) 2 Puffs Inhalation Every 24 hours Unchanged omega-3 polyunsaturated fatty acids (Fish Oil 1000 mg oral capsule) Unchanged ropinirole (ropinirole 0.5 mg Tab) 1 Tablets By Mouth 2 times a day Unchanged tamsulosin (tamsulosin 0.4 mg Cap) 1 Capsules By Mouth Every day Unchanged terazosin (terazosin 2 mg Cap) 1 Capsules By Mouth Once a day (at bedtime) Allergies contrast media (iodine-based) (Unknown) inositol (Unknown) shellfish (Unknown) Problems Ongoing - Any problem that you are currently receiving treatment for. Arthritis Back pain Benign paroxysmal positional vertigo, unspecified laterality BMI 34.0-34.9,adult BPH with urinary obstruction Chronic prostatitis Former smoker Gross hematuria History of prostate cancer Hyperlipidemia Hypertension Impotence Incomplete bladder emptying Intermittent self-catheterization of bladder Left varicocele Microscopic hematuria Non-smoker Pyelonephritis Renal mass Scrotal swelling Normal [facility] Family Medicine Office/Clini c Noteon 10-07-2022 Family Medicine Office/Clinic Note HPI Staff Patient is here for a follow up on the back Pain characteristics: Pain location: low back and hip Intensity:11/30 Onset: year and years Medication used: none Completed PT did all but last session and it made his legs worse Colon: 2020 PSA: nl 2022 AMW:Due questions/concerns: not feeling well and wheezing, diarrhea last 2 days and a cough History of Present Illness Milan Camarillo is a 72-year-old male who presents today for an evaluation of wheezing and diarrhea. Milan explains that he was at work on 10/02/2022, when he turned the air on to make sure it was working. He states that everything hit him suddenly. His throat got raw. It kept getting worse throughout the day. He is not having many bowel movements; however, it is watery. He has had a lot of mucus. His blood glucose levels have been normal. He recalls his highest glucose level was 800 mg/dL but states that it has been normal since then. Milan has attended physical therapy. His back did not get any better, but his legs got worse. The pain starts from his hip down to his knee. He broke his back 1 year ago, and it never healed. There are 3 spots in his back that are 1.5-inch gaps. The injections did not work. He has always been in pain all his life. The patient is not allergic to azithromycin. He has a history of COPD. He sees Dr. Katja Tripp for his COPD. He takes Stiolto. He had pneumonia a couple of years ago. Review of Systems PHQ Score Initial Depression Screen Score: 0 Physical Exam Vitals & Measurements T: 36.8 ?C(Oral) HR: 69(Peripheral) RR: 20 BP: 132/84 SpO2: 95% HT: 76 in HT: 193 cm WT: 126.50 kg WT: 278.3 lb BMI: 33.96 General: alert, no acute distress ENMT: oral mucosa moist, no pharyngeal erythema or exudate Cardiovascular: regular rate and rhythm, normal peripheral perfusion Respiratory: diminished breath sounds with rhonchi noted diffusely Extremities: no deformity, no trauma Neurological: oriented x 4, LOC appropriate for age, CN II-XII intact, motor strength equal & normal bilaterally, speech normal. Antalgic gait. Assessment/Plan 1. Acute bilateral low back pain with right-sided sciatica (M54.41: Lumbago with sciatica, right side) The patient has already done physical therapy. We will try steroids. The patient is to monitor his blood glucose levels. If his blood sugar glucose level exceeds 400 mg/dL, the patient needs to give me a call and we will adjust medication as needed. 2. URI, acute (J06.9: Acute upper respiratory infection, unspecified) I believe this may be the cause of the diarrhea as well. Given that whatever virus he is dealing with is causing some issues, we will do azithromycin and methylprednisolone since the patient has a history of COPD. The patient should continue his breathing treatments as before and use albuterol as needed. The patient is already accustomed to doing this. We will follow up as needed. 3. Class 1 obesity due to excess calories in adult (E66.09: Other obesity due to excess calories) 4. BMI 33.0-33.9,adult (Z68.33: Body mass index [BMI] 33.0-33.9, adult) BMI education given. We will see the patient back in 3 months for his normal follow-up and we will do lab work at that time. Documentation services were performed after patient or guardian consented to allow [employer] to record this visit. 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 ANGEL: Sarah [facility] Follow-up No qualifying data available Problem List/Past Medical History Ongoing Acute bilateral low back pain with right-sided sciatica Arthritis Back pain Benign paroxysmal positional vertigo, unspecified laterality BMI 34.0-34.9,adult BPH with urinary obstruction Chronic prostatitis Former smoker Gross hematuria History of prostate cancer Hyperlipidemia Hypertension Impotence Incomplete bladder emptying Intermittent self-catheterization of bladder Left varicocele Microscopic hematuria Non-smoker Pyelonephritis Renal mass Scrotal swelling Historical No qualifying data Procedure/Surgical History Colonoscopy (01/10/2021), EGD - Esophagogastroduodenos copy (01/10/2021), Cystourethroscopy with dilation of urethral stricture (05/07/2017), Brachytherapy (09/19/2016), TURP - Transurethral resection of prostate (04/11/2016), Cystoscopy (04/02/2016), Transrectal biopsy of prostate using ultrasound (US) guidance (07/04/2015), Appendectomy, External beam radiotherapy, Procedure on back. Medications Albuterol (Eqv-ProAir HFA) 90 mcg/inh inhalation aerosol, 2 puff(s), Inhalation, q6hr, 3 refills albuterol 0.083% Inh Mary 3 mL, 2.5 mg= 3 mL, NEB, q4hr Antivert 12.5 mg Tab, 12.5 mg= 1 tab(s), Oral, TID, PRN aspirin 81 mg Oral EC Tab atenolol 50 mg Tab, 50 mg= 1 tab(s), Oral, BID, 3 refills atorvastatin 40 mg Tab, 40 mg= 1 tab(s), Oral, Daily, 3 refills azithromycin 250 mg Tab 5-day Dose Pack (Z-Raimundo), 1 packet(s), Oral, As Directed famotidine 20 mg Tab, 2 (more content not included)... Normal [facility] Comment on above: Result Comment: Elec tronically Signed By: Raegan March MD\.br\Date and Time Signed: 10/07/22 14:38 EDT\.br\Electronically Co-Signed By: Sarah Nieto\.br\Date and Time Co-Signed: 10/07/22 12:53 EDT PT - Assessmentson PT - Assessments [id number]. 00CD:127 [facility] Lab Reportson 2022 Lab Reports [id number] CD:127 [facility] Coding Summary.on 09-03-2022 Coding Summary. CD:[id number] Gh 0bWw+PGhlYWQ+QE3QPOHdG 75cwQLztP4fD3WLKWaAAwd zJMPWOLrWMkWdokQxBG8qj XNjZXJu IC8+YR4yZPQdKmydtLImv6 Q4hJY6A50qiv0kKPpmoMB9 FZOuVuNoyfwxi5vodXl3IC cuNmluOyBt HXEczO92JHT6oF02Bi53yP GpeJHxo0itwXi0MxOwCWRp VGB9iWnoIIcef6MpCCDiY1 8scHJjo7D8 UUHdhJhayRRiAyAlvDJ9gG 4iVKoznbbyh6amolvoHmf5 vu35cGCbs0L0yLX7Y1Nulq A4SSUusQGf KbugyLBQhO8ybomxb3lhsl apOhYkYYJnHMb3WOi5SWOd lYwbEeLjCI35NFX5LLVxqb SbP1FoVRHr pNekMgW4z5V4Uw8YY3QTPg djA6KFQWELVGzsySP+PC90 rp32R7ZxGqjkSlx6CFWnTD U9iRP1oO8c QCJnYTadi6V3vEN0D4Jqri Fwwe6cy5omOGFbGIrpB82d tAFdp8E6ZQFiwIB4ELAtvF moLpAxlZ62 Oyc+UHIyhHshr8ClBbqjv8 hcn0gfcSg6CxbxTRJihdWa tDhxMZC0p2IjDk5hBXWopO B1gCA5wN5h WaAgKfE3CInpM607UeWfmR OnAcroJ24rA6TciZV+PHRy Bod0LCSiuVohLG0rY3RdQI RpbmctbGVm aOtgJU8mFKDtlxozOJYkoP 3rSDPuP1f9JiYwWhT8AOjs S7EgOXScddwnOf14uE0fRl IkYfU2ZVbc Y3ZkjqS7RDPaeHIuFUusCR A8M87oz0A8KXDfXOWzXPY6 hPW0xR3qkBscdiwhzXWvkR sgdmVydGlj IRezTEjkT108QYSquXrqMr NvZGluZyBEYXRlOiAgMDMv MTQvMjAyMzwvdGQ+PHRkIH H0nQuuRZPc rZHqOKxzXy0ltDafvWjxJY 4kOOTcvkjxPVAnaO0yDUMc tMBivLovHI1aHNYcnqljs4 60PpEnHBR3 HOAzhAScU3TxhM5hNxXyBW ErFNMyE4LpjPJzVTfxB554 CAlrEeA5KJMndnAbQ2JgYO FsaWduOiB0 j0T8Vw4Qp8CkzzxeK9SkzE GkGaYvIvbpGBd9G5UhMrqs dHI+OP24VIVcOY37DBb1DB O9qKwgTJdw VTIcA8WmjY6fOcThLGUoPH RkOyc+PHRhYmxlIHdpZHRo IVjxGMIdJpPawBiuQK4dNv 9yZGVyLWNv hOaokOKqYbEii5gxXESuVU uiFJ6ntWewG8SyhOK9BQWx e2h7Yf90Z91dZ8VdaQN+PG NtiJT1lYB1 rR2vDzXjBgA8XVabD955Ha RutLRaEfqzo8cgt5txhEs2 KdF8DBPovsBgtEdxUAY7b9 JxKc17Q52u IHdpZHRoPSIxNSUiIHZhbG digr7ocM3lFr0+PGNvbCB3 pWZ9pS5bQaFnVnN1UPxyJ2 49InRvcCIv Kdslk9jbg6qiiHi6RhPzOG GtucZwuPyeHOP9m2TfHd54 I5MhlSipd4EgThu5ek33jB Vpr2E3nHB9 B0ZkKKDelkrivCSceNsuER 0jQSEljbexSPXesE6qSQPr L7o6DcZxIjH0JUrgX3Ixai F4FKOzeQMy UEKflMNDoY9tmvslx5exqb stMlQuIUOsRTj9LXq9TIFt aHszWlIxMSA3XmD8LWC5kH HzkQ9exKcc agdliK2pRph+XCP1tQBxsR IIKM8wCujugRJ+PHRkIHN0 pYqrMZjdDTOfiH6bDUEzE5 f1CsXgKjT9 TVbxM2DpweM6AJKtwXSbUS KovDCEjQ4lthueb9wejkml WqXmCSEdGCj1YEl4PROskC duOiBsZWZ0 LzK0KMF5rFUslF4ybUmhcj mnjG0pTri+QmlydGggRGF0 YOx6T6NqBva1OVZxoUhkNK 0ncGFkZGlu Bv9maFlbuBalGC1nFIViuq lgr159XsEfr5fjWMKqmHBr TVzxCAS1Y68ia5Q5UMOpMJ JcVQC8eAY2 mZ2dtCqmrkxixSUjiAkrnq IbcYypWMprIPawJ240ZRGh jClkDuPiRRx4E2IkWvi6YO NtoMasSR6j gISjMZlaDi2zmMemtEqyHG 9fGYPznypyv777LnDdc6nj DHObkBWnGEflFUK1P56pd6 F1QLUyPAMm UDM4xVO6gL2lzSptmvozrO VmdDsgdmVydGljYWwtYWxp T059PLVyuTxpBhIrgZz5H2 MxJtj1UEJw mRxdPO6hxRYbJXxbJs7uqS fnsAjxOP8oVGOkvlyvf121 BcIgf2jzGOQumZObRUoiPE T7R39vc4H9 AEWdQESeJHM8xXD0jI1piE lnbjogbGVmdDsgdmVydGlj NWkfWJhiB417AYOkiVawVw BhdGllbnQg YGxfSOk9O6XmSohxjEV+PC 89VQPgJT47bZYseOXwr3ud gJk6EtUaTREnWIV5yLbcYO luy9ReWBVl T66yiQJir1F2TMXmgSdcfW JoEnXafZM7sR3hAZyghhhp x7hpxbztFtlac0zglk32qG 32M12lNTrd ZHRoPSIzMCUiIHZhbGlnbj 0rjA2lDi3+OVNjcJE9iCD7 jW0xGGGvZmL6FBuhO177We RvcCIvPjxj f0fas2shsQm6VwD9XQMikl MhnIkmOVV3q1XhYf85O45c IHdpZHRoPSIyMCUiIHZhbG lkqr9evS0k Ii8+LUQxsCT1wLD8aZ6xQq RcNoP0IDfmR575OaBcyGAf AffcD38fQ9HxfEL+PHRyPj j6ABDqrDub MW5fqLYsCMezWq6pYPJ9Ie OuSyCvBDifO4XaSTJmtufl huemmIX8JVTiKRSziR42It 9udDogMTBw rKWTbM3iqawaj1ezhhcqKh KkQKHwFEv1WLv4QHKbeWit IoNuFKS4KpG7FNC5yZVvwT 1hbGlnbjog jR2pS9SmRNLkcrnlRo11rN 7pVfUxZkI4GFciEzd+REVB RebnW1xCIKzWDSEBXG63IW 14mQZus4O6 hGS5Y5BkOCBhjhblyjbciZ O8MADcUQEbsR39bYGvZGsv Uw4kr6B0l962CUKuBHMwbD 32Sn4xjEar AOXyzMTLbG3kcfaet2tgqi miRnIuLURyIXg7GNa4MNNq kHubSuGuBON8AjL1RHC2zV JagO3ffTdr jrgesR6gLur+MDMvMjcvMT c5NCoifMQ+NOXxBGZ0kVsw WOulPNZenK4jBNLnM0w4Xt TuEjU5USjk G0QaALDbbkyyVg71wQ9sUj AgLgK1ISihV8QbyaJ8GAYy yZHwQOyqRIQ8H70ob4D9GP MwMDAwMDA7 oBD2xL5lrHlpsdqbqIMwjA sxmpAsbRieFIoqBTpvA267 IHRvcDsnPjcyIFllYXJzPC 50NI09pFLm l7L0bGD6F9JoGQKadxvxvy jskVN3JGDySGAvvD28dCIs RPejUs3kx0D6o365BWHaSS YjtB61Yo9h sJjbIEBvoJYUsU9fennsr5 ooqmjfGpDaXBKuVXo0MOd4 IZTaxHdbLfAfIYI5UrV8VH M6kDIttX7h nXfibczkkW5hHvk+TWFsZT wvdGQ+EXOnNUK3gBssTXaq KCLidA1tTGQgA9w6XfDuPz J4YRnmH2Pn CHFlrfljJb78eK9fXnRpEv E7PXtnW7QzapD2QIAihGUu ONrmRNU7R95uf7F0YSAsXX YmKOB6sAL2 wM7rbNronuddrWWayAbxlz NwhLmoWGzkUYvkS048HSVt hAhrFzSqU8EojholJtkbzS Q+KH05ro05 C3SuSrlhYfr0VMSiVOG5pQ Z8eF8qHCDkOCktq4C4tXB2 D2HgjwYxzh7kz1lgIMGnXD rnK61piHOb z6U2JAOetAO0CBBndTfoSb AvoH52Sdh+VWLvuAqkp1Wg Ptyvz9akl7putYl5CtUiDE IgdmFsaWdu VQQ1m2RuOy73W36qSIijPD LgPVIrPBGcAUSivHqugz7i hL2oAm8+VAHdvNW2dTA7gM 8zVlDsLmK0 NTriD763YbFilVMgEuacv6 lgu3qacKn9BxGhFREccrCf jBsqVAA0s2QaBa29S0TfgY mvh5XbSqv6 eu77qTXsb5Z7wAV1O8QaSM BftsbixQYxmWmqQS5wQOFh zmowVACfxP1qJCQpT9b5Yv EhFyQ1UTks X1YwfzQ3UKJcpMCmUXSarW HZpK1xpxihw2cvmyutXvIn SXScORc7ISa9MERqoOqyYs UiHCL5AiA2 LHY3pUQpfP4guPlwaabkfM 9wOyc+TRl2r2cgcHGrQU2y hAM3FB95FA19yKJir2T1pP C2U2JjELQu dvfpyieldBM6KHYgJOFbzK 66Bb8mfLwuAj7rOPYaYIV0 GMRxnKNcI3TkwW1bKuSkTT FxXEWrE0Sq pDCeDMweE695ABwaGlE0OB UscvIfJ8FqHMOkhVvwJoX2 e7H0Aj1SYR68GN02LC62eS Due0V4aLV9 E8WiVEEuawdjqsjsjTX6UK TwSTWoxI42Yi8lkMvpFw6t DHZdCZO8CELrsCDqR7WiaW 9yOiAjMDAw AZVeG6GxqNUmKKrpA970NM tbMvZ4GCMwjjVbQ0QtJUCr oTaoAnC2x0W2Xm1KUe56AW 51WX76tOYq a1Y0zOO9G4EtUEOeknvijg udxNL3NJNjYNKxsS10Ak0n lQbaQf5aYNFmFUX2RHXdzG FwT0XnoD1u BfTeVXRcECZoM4RijCUjHN hjV474CRcgHuP1MEQpwrIq Z8HoANGikFjiXeP9w1F9Dp 0KMZwrfck4 V0TiTbyleGY+IJ85RBXmBX 27yRDnuRLke7snxCw5TwBn XWBgUIV8vXqaHXogi2IvMU QaY23jqRMa c2U6 (more content not included)... Normal [facility] Consent for Treatmenton 08-21 Consent for Treatment [id number]#[id number] 0CD:127 Normal [facility] Family Medicine Office/Clini c Noteon 09-02-2022 Family Medicine Office/Clinic Note Chief Complaint Dizziness HPI Staff Milan is a 71 year old male who presents today for light headed-ness and dizziness at any given time . He was seen on 08/26/22 to establish care and has a hx of HTN. ringing in years for a long time. Colon:01/10/21 PSA:11/13/20 AMW: Due Flu/Covid: UTD History of Present Illness Milan is a 71-year-old male who presents today for an evaluation of dizziness. He is accompanied by an adult female. Milan states that he has been experiencing dizziness. He cannot control it and gets so dizzy that he cannot get up. The patient states that he did not lose consciousness. He explains that he was on the ground a few times this morning. This morning he went to sit down on the toilet at 5:00 AM getting ready for work and suddenly felt dizzy. 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 He was fine last night and got everything ready to go to work. He drank 2 cups of coffee this morning. He felt the same after drinking 2 cups of coffee and the dizziness came out of nowhere this morning. He took his blood pressure and it was perfect. He does not see a dining room supervisor. He notes that he does not have a bad heart. He drinks 2 gallons of water a day and always has. He has ringing in his bilateral ears intermittently. He denies dizziness when he turns his head. He was on one knee this morning to pick something up and could not get back up. He is currently taking Flomax. When his dizzy spells occur, everything is spinning and his eyes are wide open as he looks for something to grab on to. It feels like he is flying fast. While getting up to walk in the office, he feels slightly dizzy. When he closes his eyes, he gets dizzier. The patient states that he has been experiencing fatigue for 6 months. He states that he has an appointment with physical therapy for his hip and back on 09/02/2022. He does exercise. He is not able to lift much or bend over, so he is concerned he might fail physical therapy. The patient notes that his mouth gets dry and then he feels he needs something to drink quick. He gets pain in the middle of his chest. He drinks cold water and it resolves. He may be having esophageal spasms. The patient had a stroke 30 years ago. Review of Systems PHQ Score Initial Depression Screen Score: 0 Physical Exam Vitals & Measurements HR: 55(Peripheral) BP: 138/76 SpO2: 98% HT: 76 in HT: 193 cm WT: 128.8 kg WT: 283.36 lb BMI: 34.58 General: alert, no acute distress Cardiovascular: Slightly bradycardic, which is the patient's baseline. Respiratory: Lungs CTA, respirations non labored Extremities: no deformity, no trauma Neurological: oriented x 4, LOC appropriate for age, CN II-XII intact, motor strength equal & normal bilaterally, speech normal. Unsteady gait and walking with a cane. Assessment/Plan 1. Benign paroxysmal positional vertigo, unspecified laterality (H81.10: Benign paroxysmal vertigo, unspecified ear) At this time, I do believe this is multifactorial, possibly secondary to dehydration, as the patient is on Lasix and Flomax. Discussed slowly getting up from a seated position and slowly coming up from a laying position. Patient did not tolerate getting orthostatics because he got too dizzy. Patient never passed out. Patient describes the dizziness as spinning and because of this, I do think this is more of a BPPV than it is a syncopal issue. Precautions were discussed in detail. We will use Antivert to help and patient does already have a physical therapy appointment scheduled on 09/02/2022, for his hip. Advised the patient to discuss his dizziness with them and he may be able to do a Lehighton-Hallpike test at that time to help with this. Precautions were discussed in detail and when to go to the ER also discussed. 2. BMI 34.0-34.9,adult (Z68.34: Body mass index [BMI] 34.0-34.9, adult) BMI education given. 3. Non-smoker (Z78.9: Other specified health status) Please continue not to smoke. ATTESTATION: Documentation services were performed after patient or guardian consented to allow Hugh Zafu [employer] to record this visit. 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 ANGEL: Chloe Aguiar Follow-up No qualifying data available Patient Education BMI for Adults Problem List/Past Medical History Ongoing Arthritis Back pain Benign paroxysmal positional vertigo, unspecified laterality BMI 34.0-34.9,adult BPH with urinary obstruction Chronic prostatitis Former smoker Gross hematuria History of prostate cancer Hyperlipidemia Hypertension Impotence Incomplete bladder emptying Intermittent self-catheterization of bladder Left varicocele Microscopic hematuria Non-smoker Pyelonephritis Renal mass Scrotal swelling Historical No qualifying data Procedure/Surgical History Colonoscopy (01/10/2021), EGD - Esophagogastroduodenos copy (01/10/2021), Cystourethroscopy with dilation of urethral stricture (05/07/2017), Brachytherapy (09/19/2016), (more content not included)... [facility] Comment on above: Result Comment: Elec tronically Signed By: Raegan March MD\.br\Date and Time Signed: 09/02/22 10:41 EDT\.br\Electronically Co-Signed By: Chloe Aguiar\.br\Date and Time Co-Signed: 08/29/22 14:34 EST PT - Assessmentson PT - Assessments [id number]#1.0 0CD:127 [facility] PT - Consentson 09-02-2022 PT - Consents [id number] 01 [id number]#1.0 0CD:127 [facility] PT - Home Exercise Programon 09-02-2022 PT - Home Exercise Program [id number]#1.0 0CD:127 [facility] Patient Educationon 08-30-19 23 Patient Education Nutrition BMI for Adults Body mass index (BMI) is a number that is calculated from a person's weight and height. BMI may help to estimate how much of a person's weight is composed of fat. BMI can help identify those who may be at higher risk for certain medical problems. How is BMI used with adults? BMI is used as a screening tool to identify possible weight problems. It is used to check whether a person is obese, overweight, healthy weight, or underweight. How is BMI calculated? BMI measures your weight and compares it to your height. This can be done either in [place] ([place] or metric measurements. Note that charts are available to help you find your BMI quickly and easily without having to do these calculations yourself. To calculate your BMI in [place] ([place] measurements, your health care provider will: 1. Measure your weight in pounds (lb). 2. Multiply the number of pounds by 703. ? For example, for a person who weighs 180 lb, multiply that number by 703, which equals 126,540. 3. Measure your height in inches (in). Then multiply that number by itself to get a measurement called inches squared. ? For example, for a person who is 70 in tall, the inches squared measurement is 70 in x 70 in, which equals 4900 inches squared. 4. Divide the total from Step 2 (number of lb x 703) by the total from Step 3 (inches squared): 126,540 ? 4900 = 25.8. This is your BMI. To calculate your BMI in metric measurements, your health care provider will: 1. Measure your weight in kilograms (kg). 2. Measure your height in meters (m). Then multiply that number by itself to get a measurement called meters squared. ? For example, for a person who is 1.75 m tall, the meters squared measurement is 1.75 m x 1.75 m, which is equal to 3.1 meters squared. 3. Divide the number of kilograms (your weight) by the meters squared number. In this example: 70 ? 3.1 = 22.6. This is your BMI. How is BMI interpreted? To interpret your results, your health care provider will use BMI charts to identify whether you are underweight, normal weight, overweight, or obese. The following guidelines will be used: ? Underweight: BMI less than 18.5. ? Normal weight: BMI between 18.5 and 24.9. ? Overweight: BMI between 25 and 29.9. ? Obese: BMI of 30 and above. Please note: ? Weight includes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 Pacc 4 Work Phone: [facility] 10-23-2021 11:38-0400 Systolic blood pressure 142 mm[Hg] Pac 4 Work Phone: [facility] Encounters Encounter Date Encounter Type Care Provider Facility Start: 07-10-2023 End: 07-11-2023 ambulatory ARNAUD ARCHULETARY [place] Start: 07-10-2023 End: 07-10-2023 Lab Drop off ARNAUD BLACK [facility] Start: 07-10-2023 End: 07-11-2023 ambulatory Jeremy KELLEY Facility:[facility] Start: 07-10-2023 End: 07-10-2023 Patient encounter procedure Jeremy R ALLIE [facility] Start: 06-25-2023 End: 06-26-2023 ambulatory Aviva Bang [place] Start: 06-25-2023 End: 06-25-2023 Lab Drop off Aviva MorganHanna Jarrettmirna [facility] Start: 06-25-2023 End: 06-25-2023 Patient encounter procedure Jeremy KELLEY [facility] Start: 06-09-2023 End: 06-10-2023 ambulatory MD Raegan March [place] Start: 06-09-2023 End: 06-09-2023 Lab Drop off Raegan March [facility] Start: 05-06-2023 Office outpatient ne w 45 minutes Khadijah Grove [facility] Start: 05-06-2023 End: 05-06-2023 ambulatory Khadijah Grove [facility] [employer] Other Start: 03-17-2023 End: 03-18-2023 ambulatory MD Raegan March Facility:[facility] [place] Start: 03-17-2023 End: 03-18-2023 ambulatory Jeremy KELLEY Facility:[facility] Start: 03-17-2023 End: 03-17-2023 Lab Drop off Jeremy R ALLIE [facility] Start: 03-17-2023 End: 03-17-2023 Patient encounter procedure Jeremy R ALLIE [facility] Start: 03-03-2023 End: 03-04-2023 ambulatory MD Raegan March [facility] Start: 01-13-2023 End: 01-14-2023 ambulatory MD Raegan March Facility:[facility] Start: 12-30-2022 End: 12-31-2022 ambulatory MD Raegan March [place] Start: 12-30-2022 End: 12-31-2022 ambulatory MD Raegan March [facility] Start: 12-09-2022 End: 12-10-2022 ambulatory Jeremy KELLEY Facility:[facility] Start: 12-09-2022 End: 12-09-2022 Patient encounter procedure Jeremy KELLEY [facility] Start: 11-25-2022 End: 11-26-2022 ambulatory MD Raegan March [place] Start: 11-25-2022 End: 11-25-2022 Lab Drop off Raegan March [facility] Start: 11-13-2022 End: 11-14-2022 ambulatory MD Raegan March [place] Start: 11-01-2022 End: 11-02-2022 ambulatory AURORA Lowery [facility] Start: 10-18-2022 End: 10-19-2022 ambulatory MENTAL HEALTH ASSOCIATE Pau Lowery [facility] Start: 10-15-2022 End: 10-16-2022 ambulatory MD Raegan March [place] Start: 10-15-2022 End: 10-16-2022 ambulatory MD Raegan March Facility:[facility] Start: 10-07-2022 End: 10-08-2022 ambulatory MD Raegan March [facility] Start: 09-02-2022 End: 11-21-2022 ambulatory MD Raegan March [place] Start: 08-29-2022 End: 08-30-2022 ambulatory MD Raegan March [facility] Start: 08-26-2022 End: 08-27-2022 ambulatory RAEGAN MARCH Facility: Start: 08-26-2022 End: 08-27-2022 ambulatory MD Raegan March [place] Start: 08-26-2022 End: 08-27-2022 ambulatory MD Raegan March Facility:[facility] Start: 08-26-2022 End: 08-26-2022 Lab Drop off Raegan March [facility] Start: 08-23-2022 ambulatory MD Raegan March [facility] ity:[facility] Jaime Start: 08-05-2022 End: 08-06-2022 ambulatory KATJA ELVIRA . Facility:[facility] Start: 05-21-2022 End: 05-22-[address] CATRACHO JIMÉNEZ . Facility:[facility] Start: 01-16-2022 End: 01-17-[address] CATRACHO JIMÉNEZ . Facility:[facility] Start: 01-09-2022 End: 01-09-2022 Patient encounter procedure Jesus Ram MD Work Phone: Urology Comment on above: Incomplete bladder e mptying (Primary Dx); BPH with obstruction/lower urinary tract symptoms; Recurrent urinary tract infection Start: 01-01-2022 Telephone encounter Ryan jenkins MD Work Phone: Urology Comment on above: Patient Question Start: 12-31-2021 End: 01-01-[address] CATRACHO JIMÉNEZ . Facility: Start: 12-31-2021 Telephone encounter Rubén schmitt APRN.[facility] Work Phone: Urology Comment on above: Surgical Followup Start: 12-12-2021 End: 12-12-2021 Patient encounter status Marcy Donahue APRN.ORCHARD PRUNER Work Phone: Urology Start: 12-12-2021 End: 12-12-2021 Preprocedural examination done Marcy Donahue APRN.ORCHARD PRUNER Work Phone: Urology Start: 12-12-2021 End: 12-12-2021 Orders Only Jesus Ram MD Work Phone: Urology Comment on above: BPH with obstruction /lower urinary tract symptoms (Primary Dx); Incomplete bladder emptying Pre-op exam (Primary Dx); BPH with obstruction/lower urinary tract symptoms; Pre-op testing Start: 10-25-2021 Refill Jesus moreira MD Work Phone: Urology Comment on above: Patient Question Start: 10-23-2021 End: 10-23-2021 Admission to establishment [place] [id number] Work Phone: [facility] Start: 10-23-2021 End: 10-23-[address] [facility] Work Phone: Pre Anesthesia Comment on above: Preop examination (P rimary Dx); BPH with obstruction/lower urinary tract symptoms; Type 2 diabetes mellitus without complication, without long-term current use of insulin (HCC); Hypertension, unspecified type; Swelling; Chronic obstructive pulmonary disease, unspecified COPD type ([facility]); Hypercholesteremia; On supplemental oxygen therapy; Former smoker; Obesity (BMI 30.0-34.9) Start: 10-23-2021 End: 10-23-[address] [facility] Work Phone: Pre Anesthesia Start: 10-03-2021 End: 10-03-2021 Patient encounter procedure Jesus Ram MD Work Phone: Urology Comment on above: Incomplete bladder e mptying (Primary Dx); Recurrent urinary tract infection; BPH with urinary obstruction Start: 10-03-2021 End: 10-03-2021 Nursing evaluation of patient and report [facility] Comment on above: Retention of urine ( Primary Dx) Start: 10-01-2021 End: 10-02-[address] CATRACHO JIMÉNEZ . 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 Comment on above: Performed By: #### PSASC #### [facility] [address] [place] [address] Dr. Karina Del Valle Start: 12-21-2021 Transurethral prostatectomy Jeremy HUDDLESTON Start: 12-12-2021 Antibody screen Comment on above: Order Comment: Specimen Type: BLOOD SPEC IMENOrdering Facility: [facility] Address: [address] [place] [address] Performed By: #### T [id number] ####CC [facility] BLOOD BANKCLIA [id number] [place] [address] [place] Start: 12-12-2021 Urnls dip stick/tablet rgnt auto w/o microscopy Bulk Order Provider Start: 04-13-2021 Mri abdomen w/o & w/contrast material Rasheed Hanks MD Work Phone: Start: 01-10-2021 Colonoscopy Raegan March Start: 01-10-2021 Esophagogastroduodenoscopy Raegan March Start: 11-14-2020 Adult depression screening assessment Catracho Jiménez MD Work Phone: Start: 10-16-2017 DISCHARGE PATIENT ANA PAULA ORGEL Start: 10-16-2017 CREATININE W/GFR POINT OF CARE ANA PAULA ORGEL Start: 10-16-2017 POCT GLUCOSE ANA PAULA ORGEL Start: 10-16-2017 POTASSIUM (POC) ANA PAULA ORGEL Start: 10-16-2017 BEDREST ANA PAULA ORGEL Start: 10-16-2017 Continuous pulse oximetry ANA PAULA ORGEL Start: 10-16-2017 ENCOURAGE DEEP BREATHING AND COUGHING ANA PAULA ORGEL Start: 10-16-2017 NURSING COMMUNICATION ANA PAULA ORGEL Start: 10-16-2017 INITIATE OXYGEN THERAPY PROTOCOL ANA PAULA ORG EL Start: 10-16-2017 NOTIFY PHYSICIAN (SPECIFY) ANA PAULA ORGEL Start: 10-16-2017 POC CHEM8 INCLUDES CALC. ANION GAP ANA PAULA O RGEL Start: 10-16-2017 POTASSIUM W/ REFLEX TO MAGNESIUM ANA PAULA ORG EL Start: 10-16-2017 VITAL SIGNS ANA PAULA ORGEL Start: 05-07-2017 Cystourethroscopy with dilation of urethral stricture Raegan March Start: 09-19-2016 Brachytherapy Raegan March Start: 04-11-2016 Transurethral prostatectomy Raegan March Start: 04-02-2016 Cystoscopy Raegan March Start: 07-04-2015 Transrectal biopsy of prostate using ultrasound guidance Raegan March Appendectomy Raegan March Procedure on back Raegan gutierrez Teleradiotherapy procedure S jeff March Plan of Treatment Date Care Activity Detail Author Start: 11-25-2023 ambulatory Ambulatory Facility:[facility] Jaime Start: 09-15-2023 ambulatory Ambulatory Facility:E Sheryl Sandoval Start: 02-21-2023 Covid-19 Vaccine ( season) Covid-19 Vaccine () [facility] Start: 02-21-2023 Influenza vaccination Influenza Vacc ine (#1) [facility] Start: 12-25-2022 BP CONTROLLED (<130/80) BP CONTROLLED (<130/80) [facility] Start: 12-12-2022 BP CONTROLLED (<130/80) BP CONTROLLED (<130/80) [facility] Start: 06-23-2022 Advance Directive Discussion Advance Directive Discussion [facility] Start: 06-23-2022 Depression Assessment Depression Ass essment [facility] Start: 02-21-2022 Influenza vaccination INFLUENZA (#1) [facility] Start: 01-09-2022 End: 03-11-2022 Basic metabolic 2000 panel - Serum or Plasma BASIC METABOLIC PNL Lab Routine Recurrent urinary tract infection Incomplete bladder emptying Expected: 01/09/2022, Expires: 03/11/2022 [facility] Work Phone: Comment on above: Expected: 01/09/2022 , Expires: 03/11/2022 Start: 01-09-2022 End: 03-11-2022 CBC panel - Blood by Automated count CBC Lab Routine Recurrent urinary tract infection Incomplete bladder emptying Expected: 01/09/2022, Expires: 03/11/2022 [facility] Work Phone: Comment on above: Expected: 01/09/2022 , Expires: 03/11/2022 Start: 12-12-2021 End: 02-11-2022 Comprehensive metabolic 2000 panel - Serum or Plasma [facility] Work Phone: Comment on above: Expected: 12/12/2021 (Approximate), Expires: 02/11/2022 Start: 12-12-2021 End: 02-11-2022 TYPE AND SCREEN,30 DAY [facility] Work Phone: Comment on above: Expected: 12/12/2021 (Approximate), Expires: 02/11/2022 Start: 11-14-2021 Adult depression screening assessment DEPRESSION SCREENING [facility] [facility] Start: 06-23-2021 ADVANCE DIRECTIVE DISCUSSION ADVANCE DIRECTIVE DISCUSSION [facility] Start: 2014 PNEUMOVAX AGE 65 AND OVER WITH 5YR LOOKBACK (#1) PNEUMOVAX AGE 65 AND OVER WITH 5YR LOOKBACK (#1) [facility] Start: 2009 Hepatitis B Vaccine (1 of 3 - Risk 3-dose series) Hepatitis B Vaccine (1 of 3 - Risk 3-dose series) [facility] Start: 2009 RSV Vaccine (1 - 1-dose 60+ series) RSV Vaccine (1 - 1-dose 60+ series) [facility] Start: 2004 Influenza vaccination LUNG CANCER [facility] Start: 09-17-1999 Influenza vaccination LUNG CANCER [facility] Start: 09-17-1999 SHINGRIX VACCINE (1 of 2) SHINGRIX VACCINE (1 of 2) [facility] Start: 1994 COLOGUARD (FIT-DNA) COLOGUARD (FIT-D NA) [facility] Start: 1994 Colonoscopy COLONOSCOPY [facility] Start: 1994 COLORECTAL CANCER SCREENING COLORECTAL CANCER SCREENING [facility] Start: [address] COLONOGRAPHY [facility] Start: 1994 FECAL OCCULT BLOOD FECAL OCCULT BLOO D [facility] Start: 1994 SIGMOIDOSCOPY SIGMOIDOSCOPY [facility] Start: 09-17-1979 Zoledronic acid therapy ALPHA-1 ANTITRYPSIN DEFICIENCY SCREENING [facility] Start: 1968 SHINGRIX VACCINE (1 of 2) SHINGRIX VACCINE (1 of 2) [facility] Start: 1968 Urine microalbumin profile [facility] Start: 09-17-1967 ANNUAL PCP TEAM CHRONIC DISEASE VISIT ANNUAL PCP TEAM CHRONIC DISEASE VISIT [facility] Start: 09-17-1967 BP CONTROLLED (<130/80) BP CONTROLLED (<130/80) [facility] Start: 09-17-1967 Hepatitis B surface antibody level LDL CHOLESTEROL [facility] Start: 09-17-1967 HEPATITIS C SCREENING HEPATITIS C [facility] Start: 09-17-1967 SPIROMETRY SPIROMETRY [facility] Start: 09-17-1959 3 comp foot exam completed DIABETIC FOOT EXAM [facility] Start: 09-17-1959 Hepatitis B screening URINE AL BUMIN:CREATININE RATIO [facility] Start: 09-17-1959 Hepatitis C antibody , confirmatory test DILATED RETINAL EXAM [facility] Start: 09-17-1955 Pneumococcal Vaccine : 65+ (1 - PCV) Pneumococcal Vaccine: 65+ (1 - PCV) [facility] Start: 09-17-1955 PNEUMOCOCCAL: 65+ (1 - PCV) PNEUMOCOCCAL: 65+ (1 - PCV) [facility] Start: 1954 Hemoglobin A1c/Hemoglobin.total in Blood HBA1C [facility] Start: 1949 ABDOMINAL AORTIC ANEURYSM SCREENING ABDOMINAL AORTIC ANEURYSM SCREENING [facility] Bacteria identified in Urine by Culture URINE CULTURE Microbiology Routine Pre-op testing 12/12/2021 2:27 PM EDT [facility] Work Phone: End: 10-23-2022 ECG COMPLETE ECG COMPLETE ECG Routine Preop examination BPH with obstruction/lower urinary tract symptoms Type 2 diabetes mellitus without complication, without long-term current use of insulin ([facility]) Hypertension, unspecified type Swelling Chronic obstructive pulmonary disease, unspecified COPD type ([facility]) Hypercholesteremia On supplemental oxygen therapy Former smoker Obesity (BMI 30.0-34.9) 1 Occurrences starting 10/23/2021 until 10/23/2022 [facility] Work Phone: Comment on above: 1 Occurrences starti ng 10/23/2021 until 10/23/2022 SARS-CoV-2 (COVID-19 ) RNA [Presence] in Respiratory specimen by LYNNETTE with probe detection SELF CHECK COVID Microbiology Routine Pre-op testing Ordered: 12/12/2021 [facility] Work Phone: Comment on above: Ordered: 12/12/2021 URINALYSIS, REFLEX MICROSCOPIC URINALYSIS, REFLEX MICROSCOPIC Lab Routine Screening for genitourinary condition Ordered: 12/12/2021 [facility] Work Phone: Comment on above: Ordered: 12/12/2021 [facility] Immunizations Immunization Date Immunization Notes Care Provider Jesus swain 05-23-2023 influenza virus vaccine, unspecified formulation Raegan March [facility] [place] 06-03-2022 SARS-CoV-2 (COVID-19 ) [id number] Raegan March [facility] 04-23-2022 influenza virus vaccine, unspecified formulation Raegan March [facility] 09-25-2021 zoster vaccine recombinant Raegan March [facility] 06-18-2021 zoster vaccine recombinant Raegan March [facility] 04-06-2021 influenza virus vaccine, unspecified formulation Raegan March [facility] 04-06-2021 SARS-CoV-2 (COVID-19 ) mRNA BNT-162b2 vax Raegan March [facility] Comment on above: Result Comment: 2022: [id number] 08-22-2020 COVID-19 mRNA,[id number] b2 (Pfizer) NA Jcarlos Work Phone: [facility] Comment on above: Result Comment: 2022: [id number] 08-04-2020 SARS-CoV-2 (COVID-19 ) mRNA BNT-162b2 vax Raegan March [facility] 07-31-2020 COVID-19 mRNA,[id number] b2 (Pfizer) NA Jcarlos Work Phone: [facility] Comment on above: Result Comment: 2022: [id number] 07-24-2020 SARS-CoV-2 (COVID-19 ) mRNA-1273 vaccine Raegan March [facility] 04-19-2020 influenza virus vaccine, unspecified formulation Raegan March [facility] 03-23-2020 influenza virus vaccine, unspecified formulation Raegan March [facility] 05-04-2019 influenza virus vaccine, unspecified formulation Raegan March [facility] 04-29-2018 influenza virus vaccine, unspecified formulation Raegan March [facility] 04-23-2017 influenza virus vaccine, unspecified formulation Raegan March [facility] 04-23-2017 pneumococcal polysaccharide vaccine, 23 valent Raegan March [facility] 03-23-2015 pneumococcal polysaccharide vaccine, 23 valent Raegan March [facility] 03-13-2015 influenza virus vaccine, unspecified formulation Raegan March [facility] 03-13-2015 pneumococcal conjuga te vaccine, 13 valent Raegan March [facility] NEGATED: Highlighted row has not occurred!03-17-2023 influenza virus vaccine, unspecified formulation Jeremy ALLIE [facility] Payers Date Payer Category Payer Private Health Insurance [id number] 2023 Medicare [id number] 2023 Self-pay [id number] 2023 Medicare [id number] 2022 Private Health Insurance [id number] 2021 Medicare [employer] MEDICARE WELLCARE BY [employer] [facility] [id number] 2021-Present [phone] [address] [place] [address] [facility] [id number] 2021 Unknown [id number] 2020 Medicare HUMANA MEDICARE HUMANA MEDICARE PPO [id number] 2020-2021 [facility] [id number] [place] [address] PPO [id number] 2017 Medicare [id number] 1949 Unknown [id number] 2.16.840.1.249134.3.579.2 .593 1949 Unknown [id number] 2.16.840.1.146796.3.579.2 .593 1949 Unknown [id number] 2.16.840.1.041623.3.579.2 .593 1949 Unknown [id number] 2.16.840.1.491561.3.579.2 .593 1949 Unknown [id number] 2.16.840.1.879453.3.579.2 .593 1949 Unknown [id number] 2.16.840.1.459516.3.579.2 .593 1949 Unknown [id number] 2.16.840.1.499645.3.579.2 .727 1949 Unknown [id number] 2.16.840.1.753395.3.579.2 .727 1949 Unknown [id number] 2.16.840.1.029921.3.579.2 .727 1949 Unknown [id number] 2.16.840.1.871339.3.579.2 .727 1949 Unknown [id number] 2.16.840.1.955240.3.579.2 .727 1949 Unknown [id number] 2.16.840.1.268046.3.579.2 .727 1949 Unknown [id number] 2.16.840.1.852811.3.579.2 .72 1949 Unknown [id number] 2.16.840.1.523383.3.579.2 72 1949 Unknown [id number] 2.16.840.1.183410.3.579.2 1949 Unknown [id number] 2.16.840.1.690896.3.579.2 1949 Unknown [id number] 2.16.840.1.337698.3.579.2 1949 Unknown [id number] 2.16.840.1.676974.3.579. 1949 Unknown [id number] 2.16.840.1.821585.3.579.2 1949 Unknown [id number] 2.16.840.1.509575.3.579.2 1949 Unknown [id number] 2.16.840.1.345116.3.579.2 1949 Unknown [id number] 2.16.840.1.490732.3.579.2 1949 Unknown [id number] 2.16.840.1.187884.3.579.2 1949 Unknown [id number] 2.16.840.1.249961.3.579.2 1949 Unknown [id number] 2.16.840.1.154575.3.579.2 1949 Unknown [id number] 2.16.840.1.363927.3.579.2 1949 Unknown [id number] 2.16.840.1.316683.3.579.2 1949 Unknown [id number] 2.16.840.1.959364.3.579.2 1949 Unknown [id number] 2.16.840.1.810553.3.579.2 .727 1949 Unknown [id number] 2.16.840.1.627215.3.579.2 .727 1949 Unknown [id number] 2.16.840.1.295117.3.579.2 .727 1949 Unknown [id number] 2.16.840.1.673241.3.579.2 .727 1949 Unknown [id number] 2.16.840.1.654326.3.579.2 .727 1949 Unknown [id number] 2.16.840.1.171317.3.579.2 .727 1949 Unknown [id number] 2.16.840.1.987140.3.579.2 .727 Medicare Self Pay [id number] Private Health Insurance Self Pay [id number] Unknown Unknown Self Pay [id number] Unknown [id number] 2.16.840.1.950768.3.579.2 .531 Social History Date Type Detail Facility Start: 12-06-2020 End: 06-09-2023 Tobacco smoking status NHIS Ex-smoker (finding) [facility] Start: 1950 Sex Assigned At Male C [facility] End: 07-03-2017 History of tobacco use Current smoker [facility] End: 07-03-2017 History of tobacco use Cigarette Smoker [facility] Start: 11-10-2018 End: 05-29-2020 Cigarettes smoked current (pack per day) - Reported 1.5 [facility] Start: 11-10-2018 Tobacco use and exposure Smokeless tobacco non-user [facility] Start: 11-14-2020 End: 04-30-2021 Alcohol intake Current non-drinker of alcohol (finding) [facility] Start: 02-21-2021 End: 07-20-2022 Exposure to SARS-CoV-2 (event) Not sure [facility] Start: 12-22-2021 End: 01-01-2022 Exposure to SARS-CoV-2 (event) Yes [facility] Start: 05-29-2020 End: 11-14-2020 Sex Assigned At Male [facility] Tobacco smoking status Never [facility] Start: 12-11-2021 Gender identity Identifies as male gender (finding) [facility] Functional Status Date Assessment Result Facility 03-17-2023 Functional Status N/A [facility] 12-09-2022 Functional Status N/A [facility] Clinical Notes 03-23-2021 to 05-06-2023 Note Date & Type Note Facility 05-06-2023 Evaluation note Encounter Date Diagnosis Assessment Notes Apr, Hypoxia, sleep related (ICD-10 - G47.34) He has twice had nocturnal hypoxia documented, once 10 years ago in the sleep laboratory and then again about 4 5 years ago by other providers. Each time he has been prescribed oxygen therapy, but he has discontinued it. He may have hypoxia due to COPD, he may have obesity hypoventilation syndrome complicating COPD, and he may have obstructive sleep apnea with worsened hypoxia. I explained the importance of treatment and its rationale. Apr, Sleep apnea (ICD-10 - G47.30) He has increased BMI, nocturnal hypoxia, daytime drowsiness, and nonrestorative sleep. A sleep study done 10 years ago, when his BMI was lower, did not show sleep apnea but only showed nocturnal hypoxia. However I am concerned that sleep apnea may have developed with the passage of time and the increase in body weight. His sleepiness has clearly worsened. As we have both severe COPD requiring oxygen therapy and suspected obstructive sleep apnea, polysomnography and laboratory is recommended. Apr, COPD, severe (ICD-10 - J44.9) He has since stopped smoking, but has a long history of cigarette use and has had COPD complications and consequences. Untreated nocturnal hypoxia may add to lower extremity swelling, and the patient has used diuretics to deal with swelling for many years Apr, Snoring (ICD-10 - R06.83) In the past he had primary snoring associated with nocturnal hypoxia and COPD, but I am concerned that sleep apnea may be present now. He does admit to regular loud snoring Apr, BMI 37.0-37.9, adult (ICD-10 - Z68.37) Weight reduction would be broadly beneficial for overall health, but would also have direct benefits on apnea severity and sleep quality. Even moderate weight reduction can affect MARQUITA and snoring, and in some patients weight reduction can completely resolve sleep apnea Apr, Other The diagnosis of Sleep Apnea was reviewed in detail. The patient expresses good understanding, We also reviewed the medical and accident risks associated with sleep apnea and excessive fatigue. The patient is advised to adhere to a proper sleep hygiene schedule and to assure adequate total sleep time; The patient was advised to continue efforts at progressive weight loss, including decreased overall caloric intake quantity and better food choices.The patient was advised to call or return any difficulties arise, including changes in symptoms and/or problems with treatment [facility] Other 09-25-2023 Hospital Discharge instructions Patient Education 03/17/2023 08:08:46 Cancer Screening for Men Cancer Screening for Men A cancer screening is a test or exam that checks for cancer. Your health care provider will recommend specific cancer screenings based on your age, medical history (including risk factors), and family history of cancer. Work with your health care provider to create a cancer screening schedule that protects your health. Who should have screening? All men should be considered for screening of certain cancers, including colorectal cancer, prostate cancer, lung cancer, and skin cancer. Your health care provider may recommend screenings for othertypes of cancer if: You had cancer before. You have a family member with cancer. You have abnormal genes that could increase the risk of cancer. You have risk factors for certain cancers, such as current or past use of tobacco products, or being overweight. When you should be screened for cancer depends on: Your age. Your medical history and your family's medical history. Certain lifestyle factors, such as smoking or other use of tobacco products. Environmental exposure, such as to asbestos. How is screening done? Colorectal cancer All adults should have screenings starting at age 45 and continuing until age 75. Your health care provider may recommend screening before age 45. You will have tests every 1 10 years, depending on your results and the type of screening test. People at increased risk should start screening at an earlier age. Talk with your health care provider about which screening test is right for you and how often you should be screened. Colorectal cancer screening looks for cancer or for growths called polyps that often form before cancer starts. Tests to look for cancer or polyps include: Colonoscopy or flexible sigmoidoscopy. For these procedures, a flexible tube with a small camera isinserted into the rectum. CT colonography. This test uses X-rays and a contrast dye to check the colon for polyps. If a polypis found, you may need to have a colonoscopy so the polyp can be located and removed. Tests to look for cancer in the stool (feces) include: Guaiac-based fecal occult blood test (FOBT). This test can find blood in stool. It can be done at home with a kit. Fecal immunochemical test (FIT). This test can find blood in stool. For this test, you will need tocollect stool samples at home. Stool DNA test. This test looks for blood in stool and any changes in DNA that can lead to colon cancer. For this test, you will need to collect a stool sample at home and send it to a lab. Prostate cancer Prostate cancer screening for men with average risk may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
[2023-08-01 07:51] VITALS: BP 128/68; PULSE 90; RESP 20; TEMP 38; O2SAT 94; BMI 34.4
[2023-08-01] MEDS: ACETAMINOPHEN 325 MG TABLET 650 MG PO (08:20)
[2023-08-01 08:35] LABS: Bilirubin Urine NEGATIVE (NEGATIVE); Blood Urine SMALL (NEGATIVE); Clarity Urine CLEAR (CLEAR); Color Urine LT. YELLOW (YELLOW); Glucose Urine UA NEGATIVE (NEGATIVE); Ketones Urine NEGATIVE (NEGATIVE); Leukocyte Esterase Urine LARGE (NEGATIVE); Nitrite Urine POSITIVE (NEGATIVE); Protein Urine 30 mg/dL (NEG/TRACE); Specific Gravity Urine <=1.005 (1.005-1.025); pH Urine 5.5 (5.0-9.0)
[2023-08-01 08:41] LABS: Bacteria Urine LARGE #/HPF (NONE SEEN); Mucus Urine NONE SEEN (NONE SEEN); Squamous Epithelial Cell Urine FEW #/LPF (NONE/RARE); WBC Urine >100 #/HPF (NONE SEEN)
[2023-08-01 08:42] LABS: Urine Culture Indicated ALREADY ORDERED
[2023-08-01] MEDS: CEFTRIAXONE 1,000 MG, LIDOCAINE HCL/PF 2.1 ML IM (08:59)
== END 2023-08-01 09:13 | disposition home or self-care (01) ==
PROVIDERS: Emergency Provider Emergency Medicine; PCP Family Medicine
DX: N39.0 Urinary tract infection, site not specified (principal); Z79.899 Other long term (current) drug therapy; E66.9 Obesity, unspecified; Z68.34 Body mass index [BMI] 34.0-34.9, adult
CPT/HCPCS: 81001; 87086; 87150; 87186; 96372; 99284; J0696

== ENCOUNTER 2023-08-06 09:22 | Outpatient (OUT) | payer MEDICARE, SELFPAY ==
--- NOTE | 2023-08-06 09:25 | CT_ITS ---
The [address] [address] Patient Name: XIMENA CAMARILLO MRN: [id number] date: 1950 Sex: M Assigned Patient Location: CT Current Patient Location: CT Accession/Order Number: [id number] Exam Date: 08/06/2023 09:29 Report Date: 08/06/2023 10:06 At the request of: KATJA BAEZ Procedure: CT lung screening low-dose EXAMINATION: CT lung screening low-dose HISTORY: history of tobacco abuse Z87.891 COMPARISON: No relevant comparison available. TECHNIQUE: Axial, Coronal, and Sagittal images were created without the administration of IV contrast material. Dose reduction techniques were achieved by using automated exposure control and/or adjustment of mA and/or kV according to patient size and/or use of iterative reconstruction technique. FINDINGS: LUNGS: Scattered small calcified and noncalcified nodules favoring chronic granulomatous disease. No acute infiltrates or suspicious findings. PLEURA: No mass, effusion, or pneumothorax. VASCULATURE: No abnormality. JOHN: No mass or pathologic adenopathy. MEDIASTINUM: No mass or pathologic adenopathy. CARDIAC: No enlargement, pericardial thickening, or pericardial effusion. AORTA: No aneurysm or dissection. CHEST WALL: No mass or axillary adenopathy BONES: No bone lesion or fracture. Degenerative disc disease of the visible lower cervical spine. LIMITED ABDOMEN: No suspicious findings. Limited images of the upper abdomen. OTHER: Negative. CT/CT lung screening low-dose IMPRESSION: 1. Lung-RADS 2- Benign Appearance or Behavior. Nodules with a very low likelihood of becoming a clinically active cancer due to size or lack of growth. Follow-up CT Chest in 1 year. Electronically authenticated by: ISHA CHOPRA Date: 08/06/2023 10:06
--- OUTSIDE RECORDS SUMMARY | 2023-08-06 09:32 | XMS_ITS | CCD ---
Author Name Unknown Address [address] [place] [address] Organization [facility] Care Team Providers Care Container Repairer Name Role Phone ORGEL, ANA PAULA K Unavailable Unavailable ORGEL, ANA PAULA K Unavailable Unavailable AMBKADE MANUELA R Unavailable Unavailable AMBKADE MANUELA R Unavailable Unavailable PHYSICIAN, DEFAULT Unavailable Unavailable PHYSICIAN, DEFAULT Unavailable Unavailable PHYSICIAN, DEFAULT Unavailable Unavailable PHYSICIAN, DEFAULT Unavailable Unavailable Nguyen Garber Attending Provider Catracho Jiménez Primary Care Provider [phone] Catracho Jiménez MD Primary Care Provider [phone] Jeremy Kelley MD Unavailable CATRACHO JIMÉNEZ Primary [...] Garcia Consulting Raegan Tran Primary Care Physician [phone] Catracho Jiménez MD Primary Care Provider [phone] Khadijah Grove Unavailable Khadijah Grove Attending Unavailable Khadijah Grove Admitting Unavailable Raegan March Primary Care Unavailable AURORA Lowery Attending Unavailable MD Raegan March Attending Unavailable AURORA Lowery Attending Unavailable MD Raegan March Attending Unavailable MD Raegan March Attending Unavailable MD Raegan March Admitting Unavailable MD Raegan March Referring Unavailable MD Raegan March Attending Unavailable MD Raegan March Admitting Unavailable MD Raegan March Attending Unavailable MD Raegan March Admitting Unavailable MD Raegan March Attending Unavailable MD Raegan March Admitting Unavailable MD Raegan March Admitting Unavailable MD Raegan March Attending Unavailable MD Raegan March Attending Unavailable MD Raegan March Attending Unavailable MD Raegan March Attending Unavailable ALLIE Jeremy R Attending Unavailable KELLEY Jeremy Bennie Attending Unavailable Jeremy KELLEY R Attending Unavailable Jeremy KELLEY R Attending Unavailable Jeremy KELLEY Attending Unavailable MD Raegan March Attending Unavailable MD Raegan March Attending Unavailable MD Raegan March Attending Unavailable MD Raegan March Attending Unavailable MD Raegan March Attending Unavailable MD Raegan March Attending Unavailable MD Raegan March Attending Unavailable MD Raegan March Admitting Unavailable ARNAUD BLACK Attending Unavailable ARNAUD BLACK Admitting Unavailable ALLIE Jeremy R Attending Unavailable ALLIE Jeremy Bennie Admitting Unavailable MD Raegan March Admitting Unavailable MD Raegan March Attending Unavailable Aviva Bang Attending Unavailable Aviva Bang Admitting Unavailable MD Raegan March Attending Unavailable MD Raegan March Attending Unavailable Allergies Allergy Classification Reported Allergen(s) Allergy Type Date of Onset Reaction(s) Facility Niacin (1 source) Niacin Drug Allergy 1 Swelling of Lip/Tongue/Thro at [facility] Shellfish (1 source) Shellfish Food Allergy 1 Swelling of Lip/Tongue/Thro at [facility] Unclassified (14 sources) Iodinated Contrast Media; Translations: [Iodinated Contrast Media] Allergy to substance 6 Hives [facility] (12 sources) Glucosamine Drug Allergy 8 Anaphylaxis, Unknown [facility] (13 sources) Niacin Drug Allergy 6 Hives, Rash [facility] (18 sources) Shellfish; Translations: [shellfish] Drug Allergy 6 Hives, Unknown (qualifier value) [facility] (11 sources) Contrast media; Translations: [contrast media (iodine-based)] Drug allergy Unknown (qualifier value) [facility] (11 sources) Inositol; Translations: [inositol] Drug Allergy Unknown (qualifier value) [facility] (1 source) Iodine (And Iodine Containting Drugs) Drug allergy (disorder) 6 [facility] (1 source) Niacin Drug Allergy 4 [facility] (7 sources) Shellfish; Translations: [shellfish] Drug allergy (disorder) 4 Unknown (qualifier value) [facility] (1 source) Sulfonamides (Antibiotic) Drug allergy (disorder) [facility] (1 source) Niacin Drug Allergy 1 [facility] (1 source) Shellfish Drug allergy (disorder) 1 [facility] Medications Current Medications Medication Drug Class(es) Dates Sig (Normalized) Sig (Original) albuterol 0.83 mg/ml inhalation solution (12 sources) beta2-Adrenergic Agonist Start: 09-12-2022 take 2.5 mg by inhalation every four hours albuterol 0.083% Inh Mary 3 mL 2.5 mg, 3 mL, NEB, q4hr, 120 EA, Refill(s) 0, [facility], 193, cm, 08/29/22 13:11:00 EST, Height/Length [...] puff(s), Inhalation, q6hr, 18 gm, Refill(s) 3, [facility], 193, cm, 08/29/22 13:11:00 EST, Height/Length [...] BID, # 180 tab(s), Refills(s) 3, Pharmacy: [facility], 193, cm, 08/29/22 13:11:00 EST, Height/Length [...] Daily, # 90 tab(s), Refills(s) 3, Pharmacy: [facility], 193, cm, 08/29/22 13:11:00 EST, Height/Length [...] day(s), # 6 tab(s), Refills(s) 0, Pharmacy: [facility]/pharmacy #[id number], 188, cm, 06/09/23 13:56:00 EST, Height/Length [...] day(s), # 21 cap(s), Refills(s) 0, Pharmacy: [facility]/pharmacy #[id number], 188, cm, 06/09/23 13:56:00 EST, Height/Length Dosing, 127.9, kg, 03/17/23 11:18:00 EDT, Weight Dosing Start Date: 06/09/23 Stop Date: 06/16/23 Status: Ordered cephalexin 500 mg oral capsule (10 sources) Cephalosporin Antibacterial Start: 06-25-19 take 1 capsule by mouth every twelve hours Keflex 500 mg Cap 500 mg = 1 cap(s), Oral, q12hr, # 20 cap(s), Refills(s) 0, [id number] 188, cm, 06/09/23 13:56:00 EST, Height/Length [...] Comment on above: Take 1 capsule by [facility] three times daily. Take these pills first Take 1 capsule by [facility] once daily. Start these after 1st [...] on above: Take 1 capsule by mo [facility] twice daily. famotidine 20 mg oral tablet (13 sources) Histamine-2 Receptor Antagonist Start : 04-17 take 1 tablet by mouth twice daily as needed for gastroesophageal reflux disease famotidine 20 mg Tab See Instructions, TAKE 1 TABLET BY MOUTH TWICE A DAY NEEDED FOR GERD SYMPTOMS, # 180 tab(s), Refills(s) 1, Pharmacy: [id number], 188, cm, 03/17/23 11:18:00 EDT, Height/Length Dosing, 127.9, kg, 03/17/23 11:18:00 EDT, Weight Dosing Start Date: 04/17/23 Status: Ordered Start: 03-17-2023 End: 10-23-2021 take 1 tablet by mouth twice daily as needed for gastroesophageal reflux disease Pepcid 20 mg Tab 20 mg = 1 tab(s), Oral, BID, PRN for GERD symptoms, # 60 tab(s), Refills(s) 0, Pharmacy: [facility]/pharmacy #[id number], 188, cm, 03/17/23 11:18:00 EDT, Height/Length Dosing, 127.9, kg, 03/17/23 11:18:00 EDT, Weight Dosing Start Date: 03/17/23 Status: Ordered Start: 08-26-2022 take 1 tablet by mouth once da ajg famotidine 20 mg Tab 20 mg = [...] BID, # 180 tab(s), Refills(s) 3, Pharmacy: [facility], 193, cm, 08/29/22 13:11:00 EST, Height/Length [...] Daily, # 180 tab(s), Refills(s) 3, Pharmacy: [facility], 188, cm, 06/09/23 13:56:00 EST, Height/Length Dosing, 127.9, kg, 03/17/23 11:18:00 EDT, Weight Dosing Start Date: 06/30/23 Status: Ordered Start: 08-26-2022 take 1 tablet by tomy th once daily glipiZIDE 2.5 mg ER Tab 2.5 mg = 1 tab(s), Oral, Daily, # 180 tab(s), Refills(s) 3, Pharmacy: [facility], 193, cm, 08/29/22 13:11:00 EST, Height/Length [...] BID, # 180 tab(s), Refills(s) 1, Pharmacy: [facility]/pharmacy #[id number], 188, cm, 03/17/23 11:18:00 EDT, Height/Length [...] BID, # 270 tab(s), Refills(s) 3, Pharmacy: [facility], 193, cm, 08/29/22 13:11:00 EST, Height/Length Dosing, 128.8, kg, 08/29/22 13:11:00 EST, Weight Dosing Start Date: 09/12/22 Status: Ordered take 2 tablets by mo [facility] every twenty-four hours Imipramine HCl 50 MG 2 tablets at bedtime Orally Once a day Active Comment on above: Take by mouth twice daily. irbesartan 75 mg oral tablet (11 sources) Angiotensin 2 Receptor Chapis Start: take 1 tablet by mouth once daily irbesartan 75 mg Tab 75 mg = 1 tab(s), Oral, Daily, # 90 tab(s), Refills(s) 3, Pharmacy: [facility], 188, cm, 06/09/23 13:56:00 EST, Height/Length Dosing, 127.9, kg, 03/17/23 11:18:00 EDT, Weight Dosing Start Date: 06/30/23 Status: Ordered Start: 08-26-2022 take 1 tablet by tomy once daily irbesartan 75 mg Tab 75 mg = 1 tab(s), Oral, Daily, # 90 tab(s), Refills(s) 3, Pharmacy: [facility], 193, cm, 08/29/22 13:11:00 EST, Height/Length [...] BID, # 180 tab(s), Refills(s) 3, Pharmacy: [facility], 188, cm, 06/09/23 13:56:00 EST, Height/Length Dosing, 127.9, kg, 03/17/23 11:18:00 EDT, Weight Dosing Start Date: 06/30/23 Status: Ordered Start: 08-26-2022 take 1 tablet by tomy th twice daily metformin 500 mg Tab 500 mg = 1 tab(s), Oral, BID, # 180 tab(s), Refills(s) 3, Pharmacy: [facility], 193, cm, 08/29/22 13:11:00 EST, Height/Length [...] day(s), # 21 tab(s), Refills(s) 0, Pharmacy: [facility]/pharmacy #[id number], 188, cm, 06/09/23 13:56:00 EST, Height/Length [...] q24hr, # 4 gm, Refills(s) 3, Pharmacy: [facility], 193, cm, 08/29/22 13:11:00 EST, Height/Length [...] 2 Puffs as in structed once daily. Zwolle 7-Jdw-Olo-Fish Oil (Fish Oil) 1,000 mg (120 mg-180 mg) Capsule (1 source) Start: 1 take 2 capsules by mouth once daily in the morning [place]wolle 7-Idb-Foz-Fish Oil (Fish Oil) 1,000 mg (120 mg-180 mg) Capsule Active 2 CAP PO Every morning December 06, 2020 11:36am rOPINIRole 0.5 mg oral tablet (20 sources) Nonergot Dopamine Agonist Start: 6 take 1 tablet by mouth twice daily ropinirole 0.5 mg Tab 0.5 mg = 1 tab(s), Oral, BID, # 180 tab(s), Refills(s) 3, Pharmacy: [facility], 193, cm, 08/29/22 13:11:00 EST, Height/Length [...] Daily, # 90 cap(s), Refills(s) 3, Pharmacy: [facility], 193, cm, 08/29/22 13:11:00 EST, Height/Length [...] bedtime), # 90 cap(s), Refills(s) 3, Pharmacy: [facility], 193, cm, 08/29/22 13:11:00 EST, Height/Length [...] on above: Take 2 tablets by mo [facility] every 6 hours as needed for pain. amoxicillin 500 mg / clavulanate 125 mg oral tablet (2 sources) Penicillin-class Antibacterial Start: 10-23-2021 End: 12-12-2021 take 1 tablet by mouth twice daily amoxicillin-clavul anic acid (AUGMENTIN) 500-125 mg per tablet Take 1 tablet by mouth twice daily. 0 10/23/2021 12/12/2021 Discontinued (Course of therapy completed) Comment on above: [facility]. cholecalciferol, vitamin D3, (D3-2000 ORAL) [...] Comment on above: Take 1 capsule by [facility] as directed for 1 dose. one (1) hour prior to exam. doxycycline hyclate 100 mg oral capsule (3 sources) Tetracycline-class Drug Start: End: take 1 capsule by mouth twice daily doxycycline hyclate (VIBRAMYCIN) 100 mg capsule Take 1 capsule by mouth twice daily. 10 capsule 0 10/25/2021 12/12/2021 Discontinued (Course of therapy completed) Comment on above: Take 1 capsule by [facility] twice daily. ezetimibe 10 mg oral tablet (4 sources) Dietary Cholesterol Absorption Inhibitor Start: End: ZETIA 10 mg tablet fluticasone propionate 0.05 mg/actuat metered dose nasal spray (12 sources) Corticosteroid take 1 spray(s) nasal route once daily fluticasone (FLONASE) 50 mcg/actuation nasal spray Indications: Prostate cancer (HCC) Use 1 [place] in each nostril once daily. 0 Active Comment on above: Use 1 [place] in each nostril once daily. lisinopril 20 mg oral tablet (3 sources) Angiotensin Converting Enzyme Inhibitor Start: End: lisinopril (ZESTRIL, PRINIVIL) 20 mg tablet Zwolle-3 Fatty Acids, FISH OIL, (FISH OIL) 360-1,200 mg cap (12 sources) Zwolle-3 Fatty Ac ids, FISH OIL, (FISH OIL) 360-1,200 mg cap Take 1 capsule by mouth. 0 Active Comment on above: Take 1 capsule by mo [facility]. oxybutynin chloride 5 mg oral tablet [...] Major depressive disorder, single episode, unspecified; Translations: [ABMER DEPRESS D/O SINGLE EPIS UNS] Onset: 01-02-2022 [...] 01-02-2022 Episodic Other aftercare (1 source) Other remote computer terminal operator (current) drug therapy; Translations: [OTH USP CURRENT DRUG THERAPY] Onset: 01-02-2022 Episodic Residual [...] Name Value Interpretation Reference Range Facil ity ED Note-Physicianon 08-04-19 ED Note-Physician [id number] 20 [id number] 0TIFF Normal [facility] C Urineon 07-12-2023 Bacteria identified Cx Nom [...] Locations R1: This test was performed at: [facility], [address] [place] [address], [address] , , Normal [facility] Comment on above: Performed By: #### 1 [id number], [id number], [id number], [id number], [id number], [id number] #### [facility] [address] [place] [address] Ambulatory Visit Summaryon 0 07-10-2023 Ambulatory Visit Summary MILAN CAMARILLO :1950 Visit Date:07/10/2023 Ambulatory Visit Instructions Your Care Team Attending Physician - ALLIE CHOPRA, Jeremy Avery Primary Care Physician - Erasmo CHOPRA, Raegan Garcia. This Is Your Medications List albuterol (Albuterol [...] CHOPRA, Jeremy Avery Where: [facility] [address] \.br\ Medications\.br\ What How Much When [...] for choosing us for your care.\.br\ \.br\ [facility] C Urineon 06-27-2023 Bacteria identified Cx Nom [...] Locations R1: This test was performed at: [facility], [address] [place] [address], [address] [place] [address], [facility] Comment on above: Performed By: #### 2 [id number] #### [facility] [address] [place] [address] Ambulatory Visit Summaryon 0 06-26-2023 Ambulatory Visit Summary MILAN CAMARILLO :1950 Visit Date:06/25/2023 Ambulatory Visit Instructions Your Diagnosis BPH with urinary obstruction Tests Performed Urnls Dip Stick Auto w/o Microscopy POC 56694 Your Care Team Attending Physician - ALLIE [...] CHOPRA, Jeremy Avery Where: [facility] [place] [id number]- \.br\ Medications\.br\ What How Much When Instructions\.br\ [...] Urnls Dip Stick Auto w/o Microscopy POC 25706 (06/25/2023)\.br\ Bilirubin Urine Dipstick - Negative\.br\ Blood Urine Dipstick - 3+ Large\.br\ Glucose Urine Dipstick - Negative\.br\ Ketones Urine Dipstick - Negative\.br\ Leukocytes Urine Dipstick - 3+ Large\.br\ Nitrite Urine Dipstick - Negative\.br\ Protein Urine Dipstick - 2+ (100 mg/dl)\.br\ Specific [place] Urine Dipstick - 1.020\.br\ Urine Appearance Urine [...] for choosing us for your care.\.br\ \.br\ [facility] URINALYSISOrdered By: Santiago Vasquez on 06-25-2023 Bacteria [...] AM) Normal Negative [facility] UA Auto SS Divide.plasma/Lit hium.RBC (Bld) [Mass ratio] 4-20 /HPF Normal 0-3/HPF [facility] UA Auto SS Nitrite Ql (U) Negative (06/25/23 11:32 AM) Normal Negative [facility] UA Auto SS pH (U) 6.0 *NA* (06/25/23 11:32 AM) Invalid Interpretation Code 5.0 - 9.0 [facility] UA Auto SS Protein (U) [Mass/Vol] 1+ *ABN* (06/25/23 11:32 AM) Invalid Interpretation Code Negative [facility] UA Auto SS Specific gravity (U) [Rel density] <=1.005 *NA* (06/25/23 11:32 AM) Invalid Interpretation Code 1.005 - 1.030 [facility] UA Auto SS UA Spec Desc Clean Catch (06/25/23 11:32 AM) Normal [facility] Auto SS Urobilinogen Qn (U) 0.6910116 {Yamileth'U}/dL Normal 0.0 - 1.0 EU/dL [facility] UA Auto SS WBC Auto Ql (U) 2+ *ABN* (06/25/23 11:32 AM) Invalid Interpretation Code Negative [facility] UA Auto SS WBC LM.HPF (Urine sed) [#/Area] 16-25 /HPF Invalid Interpretation Code 0-5/HPF [facility] UA Auto SS Urinalysison 06-25-2023 Bacteria LM Ql (Urine sed) 1+ /HPF Abnormal Trace [facility] Comment on above: Performed By: #### 1 [id number] #### [facility] [address] [place] [address] Bilirubin Ql (U) Negative Normal Negative [facility] Comment on above: Performed By: #### 1 [id number] #### [facility] [address] [place] [address] Clarity (U) CLEAR Normal Clear [facility] Comment on above: Performed By: #### 1 [id number] #### [facility] [address] [place] [address] Color (U) YELLOW Normal Yellow [facility] Comment on above: Performed By: #### 1 [id number] #### [facility] [address] [place] [address] Epithelial cells.squamous LM.HPF (Urine sed) [#/Area] 5-8 Normal 0-2 [facility] Comment on above: Performed By: #### 1 [id number] #### [facility] [address] [place] [address] Glucose Test strip (U) [Mass/Vol] Negative Normal Negative [facility] Comment on above: Performed By: #### 1 [id number] #### [facility] [address] [place] [address] Hemoglobin Ql (U) 3+ Abnormal Negative [facility] Comment on above: Performed By: #### 1 [id number] #### [facility] [address] [place] [address] Ketones (U) [Mass/Vol] Negative Normal Negative [facility] Comment on above: Performed By: #### 1 [id number] #### [facility] [address] [place] [address] Divide.plasma/Lit hium.RBC (Bld) [Mass ratio] 4-20 Normal 0-3 [facility] Comment on above: Performed By: #### 1 [id number] #### [facility] [address] [place] [address] Nitrite Ql (U) Negative Normal Negative [facility] Comment on above: Performed By: #### 1 [id number] #### [facility] [address] [place] [address] pH (U) 6.0 [pH] Invalid Interpretation Code 5.0-9.0 [facility] Comment on above: Performed By: #### 1 [id number] #### [facility] [address] [place] [address] Protein (U) [Mass/Vol] 1+ Abnormal Negative [facility] Comment on above: Performed By: #### 1 [id number] #### [facility] [address] [place] [address] Specific gravity (U) [Rel density] <=1.005 Invalid Interpretation Code 1.005-1.030 [facility] Comment on above: Performed By: #### 1 [id number] #### [facility] [address] [place] [address] Type of Urine collection method Clean Catch Normal [facility] Comment on above: Performed By: #### 1 [id number] #### [facility] [address] [place] [address] Urobilinogen Qn (U) 0.2 {Yamileth'U}/dL Normal 0.0-1.0 [facility] Comment on above: Performed By: #### 1 [id number] #### [facility] [address] [place] [address] WBC Auto Ql (U) 2+ Abnormal Negative [facility] Comment on above: Performed By: #### 1 [id number] #### [facility] [address] [place] [address] WBC LM.HPF (Urine sed) [#/Area] 16-25 Abnormal 0-5 [facility] Comment on above: Performed By: #### 1 [id number] #### [facility] [address] [place], [place] [address] RAD - MISCon 06-10-2023 RAD - MISC [id number] 20 [id number] 0TIFF Normal [facility] Ambulatory Visit Summaryon 1 08-10-2022 Ambulatory Visit [...] CHOPRA, Jeremy Avery Where: [facility] [address] [address]- \.br\ Medications\.br\ What How Much When Why Instructions\.br\ New azithromycin (azithromycin 250 mg Tab 5-day Dose Pack (Z-Raimundo)) 1 Packets By Mouth As Directed Type 2 diabetes mellitus without complication, without long-term current use of insulin Hypertension Acute URI Duration: 5 Days as directed on package labeling Pickup at [facility]/pharmacy #[id number]\.br\ New benzonatate (benzonatate 200 mg oral capsule) 1 Capsules By Mouth 3 times a day Type 2 diabetes mellitus without complication, without long-term current use of insulin Hypertension Acute URI Duration: 7 Days Pickup at [facility]/pharmacy #[id number]\.br\ New methylPREDNISolone (Medrol Dosepack 4 mg Tab) 1 Packets By Mouth As Directed Type 2 diabetes mellitus without complication, without long-term current use of insulin Hypertension Acute URI Duration: 6 Days as directed on package labeling Pickup at [facility]/pharmacy #[id number]\.br\ Unchanged albuterol (Albuterol (Eqv-ProAir HFA) 90 mcg/ [...] Once a day (at bedtime)\.br\ Pharmacy Information\.br\ [facility]/pharmacy #[id number]: [address] [place], [place] [id number] [phone]\.br\ Allergies\.br\ contrast media (iodine-based) (Unknown)\.br\ inositol (Unknown)\.br\ [...] and other factors.\.br\ Follow these instructions at [facility] Auto Diffon 06-09-2023 Basophils/100 WBC (Bld) 1.1 % Normal 0.0-2.0 [facility] Comment on above: Order Comment: Order Added by Discern Expert. Performed By: #### 2 377462, [id number], [id number], [id number], [id number] ####[place] [address] [place] [address] Basophils/Leukocyt es Auto (Bld) [Pure # fraction] 0.1 E9/L Normal 0.0-0.2 [facility] Comment on above: Order Comment: Order Added by Discern Expert. Performed By: #### 2 334553, [id number], [id number], [id number], [id number] ####[place] [address] [place] [address] Eosinophils/100 WBC (Bld) 5.7 % Normal 0.0-8.0 [facility] Comment on above: Order Comment: Order Added by Discern Expert. Performed By: #### 2 473416, [id number], 4125807, 7394784, [id number] ####[address] [address] Eosinophils/Leukoc ytes Auto (Bld) [Pure # fraction] 0.3 E9/L Normal 0.0-0.5 [facility] Comment on above: Order Comment: Order Added by Discern Expert. Performed By: #### 2 392402, [id number], 9553962, 2681565, [id number] ####[address] [address] Lymphocytes/100 WBC (Bld) 17.1 % Normal 14.0-50.0 [facility] Comment on above: Order Comment: Order Added by Discern Expert. Performed By: #### 2 154498, [id number], 8010439, 1115081, [id number] ####[address] [address] Lymphocytes/Leukoc ytes Auto (Bld) [Pure # fraction] 1.0 E9/L Normal 1.0-4.0 [facility] Comment on above: Order Comment: Order Added by Discern Expert. Performed By: #### 2 395459, [id number], 4879979, 5687173, [id number] ####[place] [place] [address] Monocytes/100 WBC (Bld) 22.9 % High 4.0-14.0 [facility] Comment on above: Order Comment: Order Added by Discern Expert. Performed By: #### 2 262250, [id number], 3681069, 0144408, [id number] ####[address] [address] Monocytes/Leukocyt es Auto (Bld) [Pure # fraction] 1.3 E9/L High 0.2-1.0 [facility] Comment on above: Order Comment: Order Added by Discern Expert. Performed By: #### 2 607944, [id number], 5392540, 6042533, [id number] ####[facility] [address] [place] [address] Neutrophils/100 WBC (Bld) 53.2 % Normal 36.0-75.0 [facility] Comment on above: Order Comment: Order Added by Discern Expert. Performed By: #### 2 476668, [id number], 3978712, 7990476, [id number] ####[place] [place] [address] Neutrophils/Leukoc ytes Auto (Bld) [Pure # fraction] 3.0 E9/L Normal 2.0-7.5 [facility] Comment on above: Order Comment: Order Added by Discern Expert. Performed By: #### 2 723654, [id number], 9257457, 3215574, [id number] ####[facility] [address] [place] [address] CBC w/ Auto Diffon 3 Erythrocyte distribution width (RBC) [Ratio] 15.9 % High 10.9-14.2 [facility] Comment on above: Performed By: #### 2 713818, [id number], 8812641, 6106570, [id number] ####[facility] [address] [place] [address] Hematocrit (Bld) [Volume fraction] 39.1 % Normal 37.7-49.0 [facility] Comment on above: Performed By: #### 2 182510, 03852564, 1409978, 1541702, [id number] ####[facility] [address] [place] [address] Hemoglobin (Bld) [Mass/Vol] 13.0 g/dL Low 13.5-17.5 [facility] Comment on above: Performed By: #### 2 538839, 11508219, 8603264, 4034804, [id number] ####[facility] [address] [place] [address] MCH (RBC) [Entitic mass] 28.6 pg Normal 27.0-34.0 [facility] Comment on above: Performed By: #### 2 450332, 26666125, 3121799, 9615600, [id number] ####[address] [address] MCHC (RBC) [Mass/Vol] 33.3 g/dL Normal 31.4-36.0 [facility] Comment on above: Performed By: #### 2 707722, 32312459, 9575915, 1193656, 820030231 ####[address] [place] [address] MCV (RBC) [Entitic vol] 86.0 fL Normal 80.0-100.0 [facility] Comment on above: Performed By: #### 2 739865, 30302710, 5434903, 3002747, 044710090 ####[address] [address] Platelet mean volume (Bld) [Entitic vol] 9.0 fL Normal 6.4-10.8 [facility] Comment on above: Performed By: #### 2 131779, 30212733, 5375954, 4931492, 589101366 ####[facility] [address] [place] [address] Platelets (Bld) [#/Vol] 186.0 E9/L Normal 150.0-500.0 [facility] Comment on above: Performed By: #### 2 129673, 95129485, 0400711, 2326152, 069464132 ####[address] [place] [address] RBC (Bld) [#/Vol] 4.5 E12/L Normal 4.3-5.9 [facility] Comment on above: Performed By: #### 2 934011, 47851010, 8650896, 0050618, 384782865 ####[facility] [address] [place] [address] WBC corrected for nucl RBC Auto (Bld) [#/Vol] 5.7 E9/L Normal 4.0-11.0 [facility] Comment on above: Result Comment: Slid e reviewed by HARVINDER. Performed By: #### 2 525620, 84093361, 5963270, 2924766, 161374942 ####[facility] [address] [place] [address] CHEMISTRYOrdered By: SYSTEM SYSTEM on 06-09-2023 Albumin [...] (Bld) [Mass fraction] 5.2 % Normal <=5.9% [facility] ChemAutoSS CMPon 06-09-2023 Albumin [Mass/Vol] 4.0 g/dL Normal 3.3-5.0 [facility] Comment on above: Performed By: #### 2 235396, 58860971, 4270427, 4180268, 684527616 ####[facility] [address] [place] [address] Albumin/Globulin [Mass ratio] 1.4 {ratio} Normal 1.1-2.2 [facility] Comment on above: Performed By: #### 2 850241, 95136650, 2915900, 4810704, 409077933 ####[facility] [address] [place] [address] Alk Phos 75 Int._Unit/L Normal 21-98 [facility] Comment on above: Performed By: #### 2 325269, 44364022, 7586304, 1621486, 913800475 ####[facility] [address] [place] [address] ALT 18 Int._Unit/L Normal 6-46 [facility] Comment on above: Performed By: #### 2 428502, 69716319, 2214336, 2144010, 623746057 ####[facility] [address] [place] [address] Anion gap [Moles/Vol] 10 mmol/L Normal 6-16 [facility] Comment on above: Performed By: #### 2 486354, 82408925, 6488940, 3648024, 454882874 ####[facility] [address] [place] [address] AST 17 Int._Unit/L Normal 5-43 [facility] Comment on above: Performed By: #### 2 051597, 63747765, 9710808, 1067923, 778468192 ####[facility] [address] [place] [address] Bili Total 0.6 mg/dL Normal 0.0-1.1 [facility] Comment on above: Performed By: #### 2 372970, 73293320, 6518415, 4507844, 115799397 ####[address] [place] [address] BUN/Creat Ratio 9 No Units Low 10-20 [facility] Comment on above: Performed By: #### 2 892258, 10162651, 1270986, 8332161, 477177571 ####[address] [place] [address] Calcium [Mass/Vol] 9.0 mg/dL Normal 8.9-11.1 [facility] Comment on above: Performed By: #### 2 120087, 81007216, 4266488, 9894147, 579432798 ####[facility] [address] [place] [address] Chloride [Moles/Vol] 104 mmol/L Normal 101-111 [facility] Comment on above: Performed By: #### 2 886474, 49864999, 5879163, 8165288, 901630695 ####[facility] [address] [place] [address] CO2 [Moles/Vol] 31 mmol/L Normal 21-31 [facility] Comment on above: Performed By: #### 2 032777, 24821105, 5606877, 2702816, 572318381 ####[facility] [address] [place] [address] Creatinine [Mass/Vol] 1.2 mg/dL Normal 0.5-1.3 [facility] Comment on above: Performed By: #### 2 693784, 75167232, 6127869, 7209620, 682151488 ####[facility] [address] [place] [address] Globulin (S) [Mass/Vol] 2.9 g/dL Normal 1.4-4.0 [facility] Comment on above: Performed By: #### 2 215752, 34439672, 7008044, 9698865, 572476161 ####[facility] [address] [place] [address] Glucose [Mass/Vol] 79 mg/dL Normal 55-199 [facility] Comment on above: Performed By: #### 2 805035, 06413413, 3341699, 3695826, 603771262 ####[facility] [address] [place] [address] Potassium [Moles/Vol] 4.1 mmol/L Normal 3.5-5.3 [facility] Comment on above: Performed By: #### 2 656524, 23568149, 9712769, 4367373, 287754388 ####[facility] [address] [place] [address] Protein [Mass/Vol] 6.9 g/dL Normal 6.0-7.8 [facility] Comment on above: Performed By: #### 2 763964, 20387989, 1657911, 7391522, 850055601 ####[facility] [address] [place] [address] Sodium [Moles/Vol] 141 mmol/L Normal 135-145 [facility] Comment on above: Performed By: #### 2 772131, 50592125, 1219411, 6312773, 971700941 ####[facility] [address] [place] [address] Urea nitrogen [Mass/Vol] 11 mg/dL Normal 5-21 [facility] Comment on above: Performed By: #### 2 723949, 18693446, 4888913, 2424018, 097653576 ####[facility] [address] [place] [address] [facility] Medicine Office/Clini c Noteon 06-09-2023 Family Medicine [...] day(s), # 6 tab(s), Refills(s) 0, [facility] 188, cm, 06/09/23 13:56:00 EST, Height/Length Dosing, 127.9, kg, 03/17/23 11:18:00 EDT, Weight Dosing benzonatate, 200 mg = 1 cap(s), Oral, TID, X 7 day(s), # 21 cap(s), Refills(s) 0, [facility] 188, cm, 06/09/23 13:56:00 EST, Height/Length Dosing, 127.9, kg, 03/17/23 11:18:00 EDT, Weight Dosing methylPREDNISolone, = 1 packet(s), Oral, As Directed, as directed on package labeling, X 6 day(s), # 21 tab(s), Refills(s) 0, [facility] 188, cm, 06/09/23 13:56:00 EST, Height/Length Dosing, 127.9, kg, 03/17/23 11:18:00 EDT, Weight Dosing CBC w/ Auto Diff Comprehensive Metabolic Panel HgbA1c 2. Hypertension (I10: Essential (primary) hypertension) - At goal Ordered: azithromycin, = 1 packet(s), Oral, As Directed, as directed on package labeling, X 5 day(s), # 6 tab(s), Refills(s) 0, [facility], 188, cm, 06/09/23 13:56:00 EST, Height/Length Dosing, 127.9, kg, 03/17/23 11:18:00 EDT, Weight Dosing benzonatate, 200 mg = 1 cap(s), Oral, TID, X 7 day(s), # 21 cap(s), Refills(s) 0, [facility], 188, cm, 06/09/23 13:56:00 EST, Height/Length Dosing, 127.9, kg, 03/17/23 11:18:00 EDT, Weight Dosing methylPREDNISolone, = 1 packet(s), Oral, As Directed, as directed on package labeling, X 6 day(s), # 21 tab(s), Refills(s) 0, [facility], 188, cm, 06/09/23 13:56:00 EST, Height/Length [...] day(s), # 6 tab(s), Refills(s) 0, [facility], 188, cm, 06/09/23 13:56:00 EST, Height/Length Dosing, 127.9, kg, 03/17/23 11:18:00 EDT, Weight Dosing benzonatate, 200 mg = 1 cap(s), Oral, TID, X 7 day(s), # 21 cap(s), Refills(s) 0, [facility], 188, cm, 06/09/23 13:56:00 EST, Height/Length Dosing, 127.9, kg, 03/17/23 11:18:00 EDT, Weight Dosing methylPREDNISolone, = 1 packet(s), Oral, As Directed, as directed on package labeling, X 6 day(s), # 21 tab(s), Refills(s) 0, [facility], 188, cm, 06/09/23 13:56:00 EST, Height/Length Dosing, 127.9, kg, 03/17/23 11:18:00 EDT, Weight Dosing CBC w/ Auto Diff Comprehensive Metabolic Panel HgbA1c 4. Cough (R05.9: Cough, unspecified) - As above. Ordered: Rapid COVID POC 82577 Follow-up No qualifying data available Patient Education Hypertension, Adult Problem List/Past Medical History Ongoing Acute URI Arthritis Back pain BPH with urinary obstruction Chronic prostatitis COPD without exacerbation Former smoker GERD (gastroesophageal reflux disease) Gross hematuria History of prostate cancer History of pyelonephritis HLD (hyperlipidemia) Hyperlipidemia Hypertension Impotence Incomplete bladder emptying Intermittent self-catheterization of bladder L (more content not included)... Normal [facility] Comment on above: Result Comment: Elec tronically Signed By: Erasmo CHOPRA, Raegan Parker.br\Date and Time Signed: 06/09/23 14:28 EST HEMATOLOGYOrdered [...] 28.6 pg Normal 27.0 - 34.0 pg FT HemeAutoSS MCHC (RBC) [Mass/Vol] 33.3 g/dL Normal 31.4 - 36.0 gm/dL FT HemeAutoSS MCV (RBC) [Entitic vol] 86.0 fL [...] above: Result Comment: Slid e reviewed by [id number] 06-09-2023 HbA1c (Bld) [Mass fraction] 5.2 % Normal <=5.9 [facility] Comment on above: Performed By: #### 2 480696, 06752740, 3743929, 6540324, 848227309 ####[facility] [address] [place] [address] Patient Educationon 06-09-20 Patient Education Cardiovascular Hypertension, [...] oz glass (more content not included)... Normal [facility] eGFRon 06-09-2023 GFR/1.73 sq M.predicted among non-blacks MDRD (S/P/Bld) [Vol rate/Area] mL/min/{1.73_m2} Normal >=59 [facility] Comment on above: Order Comment: Order added by Discern Expert. Performed By: #### 2 486022, 48464348, 5685745, 0366139, 859087795 ####[facility] [address] Physician Orderon 05-30-2023 Physician Order [id number]#1.0 0TIFF [facility] Immunization Recordson 05-26 Immunization Records [id number]#1.0 0TIFF [facility] Retail - Clinical Noteon Retail - Clinical Note [id number]#1.0 0TIFF [facility] Consultation Noteon 04-29-20 23 Consultation Note [id number]#1.0 0TIFF [facility] Physician Referralon 023 Physician Referral [id number]#1.0 0CD:127 [facility] Retail - Clinical Noteon Retail - Clinical Note [id number]#1.0 0CD:127 [facility] Ambulatory Visit Summaryon 0 03-17-2023 Ambulatory Visit [...] CHOPRA, Jeremy Avery Where: [facility] Invalid Interpretation Code [address] [place] [address]- \.br\ Someone Will Contact You Regarding These Appointments\.br\ [facility] External Ambulatory Referral, Service not offered at [facility], Podiatry, 03/17/23 11:38:00 EDT, Hypertension [facility] CHEMISTRYOrdered By: SYSTEM SYSTEM on 03-17-2023 Prostate specific Ag [Mass/Vol] ng/mL Normal 0.1 - 3.5 ng/mL [facility] Remisol Family Medicine Office/Clini c Noteon 03-17-2023 [...] symptoms, # 60 tab(s), Refills(s) 0, Pharmacy: [facility]/pharmacy #[id number], 188, cm, 03/17/23 11:18:00 EDT, Height/Length Dosing, 127.9, kg, 03/17/23 11:18:00 EDT, Weight Dosing Body Mass Index (BMI) documented 3008F Current tobacco non-user 1036F Depression Screening Negative 3352F [facility] External Ambulatory Referral Influenza immunization status assessed [...] Daily, # 3 tab(s), Refills(s) 0, [facility] 188, cm, 03/03/23 14:16:00 EDT, Height/Length Dosing, 127.2, kg, 03/03/23 14:16:00 EDT, Weight Dosing famotidine, 20 mg = 1 tab(s), Oral, BID, PRN for GERD symptoms, # 60 tab(s), Refills(s) 0, [facility], 188, cm, 03/17/23 11:18:00 EDT, Height/Length Dosing, 127.9, kg, 03/17/23 11:18:00 EDT, Weight Dosing Body Mass Index (BMI) documented 3008F Current tobacco non-user 1036F Depression Screening Negative 3352F [facility] External Ambulatory Referral Influenza immunization status assessed [...] symptoms, # 60 tab(s), Refills(s) 0, Pharmacy: [facility]/pharmacy #6177, 188, cm, 03/17/23 11:18:00 EDT, Height/Length Dosing, 127.9, kg, 09/25/23 11:18:00 EDT, Weight Dosing Body Mass Index (BMI) documented 3008F Current tobacco non-user 1036F Depression Screening Negative 3352F [facility] External Ambulatory Referral Influenza immunization status assessed [...] symptoms, # 60 tab(s), Refills(s) 0, Pharmacy: [facility]/pharmacy #6177, 188, cm, 03/17/23 11:18:00 EDT, Height/Length Dosing, 127.9, kg, 03/17/23 11:18:00 EDT, Weight Dosing Body Mass Index (BMI) documented 3008F Current tobacco non-user 1036F Depression Screening Negative 3352F [facility] External Ambulatory Referral Influenza immunization status assessed 1030F Most recent diastolic blood pressure <80 mm Hg 3078F Spirometry test results demonstrate FEV/FVC > or = 70% or patient does not have COPD 3027F Systolic BP <130 (more content not included)... Normal [facility] Comment on above: Result Comment: Elec tronically Signed By: Erasmo CHOPRA, Raegan Adler\.br\Date and Time Signed: 03/17/23 11:48 EDT PSA Totalon 03-17-2023 Prostate specific Ag [Mass/Vol] ng/mL Normal 0.1-3.5 [facility] Comment on above: Result Comment: The concentration of PSA determined by different manufacturers can vary due to differences in assay methods and reagent specificity. Values obtained from different assay methods cannot be used interchangeably. The methodology used for this result was chemiluminescence using [employer]'s [employer] PSA reagent. Performed By: #### 1 [id number] ####[facility] [address] [place] [address] Patient Educationon 03-17-20 Patient Education Oncology Cancer [...] if anything looks unusual. Men with a ahbppn-eatu-yqoiyz risk for skin cancer may want to see a loan documentation specialist (career and guidance counselor) for an annual body check. What are the benefits of screening? Cancer screening is done to look for cancer in the very early stages, before it spreads and becomes harder to treat and before you would start to notice symptoms. Finding cancer early improves the chances of successful treatment. It ma (more content not included)... Normal [facility] Urology Office/Clinic Noteon 03-17-2023 Urology Office/Clinic Note [...] PSA: 08/26/22 - <0.13 10/15/22 - <0.1 TRUS/bx 07/04/15. EBRT 2017. S/p Brachytherapy 2016. No longer follows with Dr. Burgess. Follow up 6 mos with PSA or sooner if needed. Pt understands and agrees with plan. -Draw PSA IO today for current PSA. 2. BPH with urinary obstruction (N40.1: Benign prostatic hyperplasia with lower urinary tract symptoms) S/p TURP 12/21/21 at [facility] by Dr. Ram - Path showed BPH [...] and voids in between. Was told at [facility] he would no longer have to CIC [...] [facility] [address], [place] [address]- [phone] Additional Instructions: 6 mos with PSA Patient [...] (04/11/2016), Cystoscopy ( (more content not included)... Normal [facility] Comment on above: Result Comment: Elec tronically Signed By: Jeremy KELLEY MD\.br\Date and Time Signed: 03/17/23 09:50 EDT\.br\Electronically Co-Signed By: Ita Orozco\.br\Date and Time Co-Signed: 03/17/23 09:40 EDT\.br\Electronically Co-Signed By: Ita Orozco\.br\Date and Time Co-Signed: 03/17/23 09:42 EDT Consultation Noteon 03-12-20 Consultation Note [id number]#1.00 CD:127 Normal [facility] Insurance Correspondence Off iceon 03-05-2023 Insurance Correspondence Office [id number] CD:127 [facility] Physician Referralon 023 Physician Referral [id number] 21 [id number]#1.0 0CD:127 [facility] Family Medicine Office/Clini c Noteon 03-03-2023 Family Medicine Office/Clinic Note HPI Staff [place] [...] Daily, # 3 tab(s), Refills(s) 0, [facility], 188, cm, 03/03/23 14:16:00 EDT, Height/Length Dosing, 127.2, kg, 03/03/23 14:16:00 EDT, Weight Dosing azithromycin, 500 mg = 1 tab(s), Oral, Daily, # 3 tab(s), Refills(s) 0, Pharmacy: [facility] #6177, 188, cm, 01/13/23 14:24:00 EDT, Height/Length Dosing, 127.1, kg, 01/13/23 14:24:00 EDT, Weight Dosing methylPREDNISolone, = 1 packet(s), Oral, As Directed, as directed on package labeling, X 6 day(s), # 21 tab(s), Refills(s) 0, [facility], 188, cm, 03/03/23 14:16:00 EDT, Height/Length Dosing, 127.2, kg, 03/03/23 14:16:00 EDT, Weight Dosing [facility] External Ambulatory Referral Influenza Type A&B POC 57924 Rapid COVID POC 27691 2. Type 2 diabetes mellitus without complication, without long-term current use of insulin (E11.9: Type 2 diabetes mellitus without complications) - Discussed the use of steroids in a T2DM - Will monitor - Pt is well controlled Ordered: azithromycin, 500 mg = 1 tab(s), Oral, Daily, # 3 tab(s), Refills(s) 0, [facility], 188, cm, 03/03/23 14:16:00 EDT, Height/Length Dosing, 127.2, kg, 03/03/23 14:16:00 EDT, Weight Dosing methylPREDNISolone, = 1 packet(s), Oral, As Directed, as directed on package labeling, X 6 day(s), # 21 tab(s), Refills(s) 0, [facility], 188, cm, 03/03/23 14:16:00 EDT, Height/Length Dosing, 127.2, kg, 03/03/23 14:16:00 EDT, Weight Dosing [facility] External Ambulatory Referral Influenza Type A&B POC 90167 Rapid COVID POC 39842 3. BMI 35.0-35.9,adult (Z68.35: Body mass index [BMI] 35.0-35.9, adult) - BMI education given. Ordered: azithromycin, 500 mg = 1 tab(s), Oral, Daily, # 3 tab(s), Refills(s) 0, [facility], 188, cm, 03/03/23 14:16:00 EDT, Height/Length Dosing, 127.2, kg, 03/03/23 14:16:00 EDT, Weight Dosing azithromycin, 500 mg = 1 tab(s), Oral, Daily, # 3 tab(s), Refills(s) 0, [facility], 188, cm, 01/13/23 14:24:00 EDT, Height/Length Dosing, 127.1, kg, 01/13/23 14:24:00 EDT, Weight Dosing methylPREDNISolone, = 1 packet(s), Oral, As Directed, as directed on package labeling, X 6 day(s), # 21 tab(s), Refills(s) 0, [facility], 188, cm, 03/03/23 14:16:00 EDT, Height/Length Dosing, 127.2, kg, 03/03/23 14:16:00 EDT, Weight Dosing [facility] External Ambulatory Referral Influenza Type A&B POC 37742 Rapid COVID POC 62390 4. Former smoker (Z87.891: Personal history of nicotine dependence) - Please continue not to smoke. Ordered: azithromycin, 500 mg = 1 tab(s), Oral, Daily, # 3 tab(s), Refills(s) 0, Pharmacy: [facility] #6177, 188, cm, 03/03/23 14:16:00 EDT, Height/Length Dosing, 127.2, kg, 03/03/23 14:16:00 EDT, Weight Dosing methylPREDNISolone, = 1 packet(s), Oral, As Directed, as directed on package labeling, X 6 day(s), # 21 tab(s), Refills(s) 0, [facility], 188, cm, 03/03/23 14:16:00 EDT, Height/Length Dosing, 127.2, kg, 03/03/23 14:16:00 EDT, Weight Dosing [facility] External Ambulatory Referral Influenza Type A&B POC 24321 Rapid COVID POC 26110 Follow-up No qualifying data available Problem List/Past Medical History Ongoing Acute URI Arthritis Back pain Benign paroxysmal positional vertigo, unspecified laterality BPH with urinary obstruction Chronic prostatitis Former smoker Gross hematuria History of prostate cancer History of pyelonep (more content not included)... Normal [facility] Comment on above: Result Comment: Elec tronically Signed By: Erasmo CHOPRA, Raegan Parker.br\Date and Time Signed: 03/03/23 14:45 EDT Retail - Clinical Noteon Retail - Clinical Note [id number] CD:127 Normal [facility] Retail - Clinical Noteon Retail - Clinical Note [id number] 0CD:127 Normal [facility] Ambulatory Visit Summaryon 0 01-13-2023 Ambulatory Visit Summary RABIAMILAN Bennie :1950 Visit Date:01/13/2023 Ambulatory Visit Instructions Your [...] CHOPRA, Jeremy Avery Where: [facility] Invalid Interpretation Code [address] [place] [address]- \.br\ Friday 8:00 AM EDT \.br\ With:\.br\ Where: [facility] Family Medicine Office/Clini c Noteon 01-13-2023 Family [...] Daily, # 3 tab(s), Refills(s) 0, [facility], 188, cm, 01/13/23 14:24:00 EDT, Height/Length Dosing, 127.1, kg, 01/13/23 14:24:00 EDT, Weight Dosing methylPREDNISolone, = 1 packet(s), Oral, As Directed, as directed on package labeling, X 6 day(s), # 21 tab(s), Refills(s) 0, [facility], 188, cm, 01/13/23 14:24:00 EDT, Height/Length Dosing, 127.1, kg, 01/13/23 14:24:00 EDT, Weight Dosing 2. BMI 35.0-35.9,adult (Z68.35: Body mass index [BMI] 35.0-35.9, adult) - BMI Ordered: azithromycin, 500 mg = 1 tab(s), Oral, Daily, # 3 tab(s), Refills(s) 0, [facility], 188, cm, 01/13/23 14:24:00 EDT, Height/Length Dosing, 127.1, kg, 01/13/23 14:24:00 EDT, Weight Dosing methylPREDNISolone, = 1 packet(s), Oral, As Directed, as directed on package labeling, X 6 day(s), # 21 tab(s), Refills(s) 0, [facility], 188, cm, 01/13/23 14:24:00 EDT, Height/Length [...] Daily, # 3 tab(s), Refills(s) 0, [facility], 188, cm, 01/13/23 14:24:00 EDT, Height/Length Dosing, 127.1, kg, 01/13/23 14:24:00 EDT, Weight Dosing methylPREDNISolone, = 1 packet(s), Oral, As Directed, as directed on package labeling, X 6 day(s), # 21 tab(s), Refills(s) 0, [facility], 188, cm, 01/13/23 14:24:00 EDT, Height/Length [...] Esophagogastroduodenos c (more content not included)... Normal [facility] Comment on above: Result Comment: Elec tronically Signed By: Erasmo CHOPRA, Raegan Adler\.br\Date and Time Signed: 01/13/23 14:44 EDT Ambulatory Visit Summaryon 0 12-30-2022 Ambulatory Visit Summary RABIAMILAN :1950 Visit Date:12/30/2022 Ambulatory Visit Instructions Your [...] CHOPRA, Jeremy Avery Where: [facility] Invalid Interpretation Code [address] [place] [address]- \.br\ You Need to Complete the Following\.br\ Microalbumin Level Urine, Urine, Routine collect, 12/30/22, Order for future visit, Nurse collect, Hypertension [facility] Family Medicine Office/Clini c Noteon 12-30-2022 Family [...] vent a needle. 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 He [...] with voice recognition artificial intelligence software, specifically Phloronol, Qlibri and or AVdirect. Substitutions may have occurred due to the inherent limitations of voice recognition and artificial intelligence software. ATTESTATION: Documentation services were performed after patient or guardian consented to allow [employer] to record this visit. ANGEL technical specialist cytogenetics and provider reviewed before signing. ANGEL:Elyssa Hess Follow-up No qualifying data available Problem List/Past Medical History Ongoing Arthritis Back pain Benign paroxysmal positional vertigo, unspecified laterality BPH with urinary obstruction Chronic prostatitis Former smoker Gross hematuria History of prostate cancer History of pyelo (more content not included)... Normal [facility] Comment on above: Result Comment: Elec tronically Signed By: Raegan March MD\.br\Date and Time Signed: 12/30/22 13:03 EDT\.br\Electronically Co-Signed By: Elyssa Hess\.br\Date and Time Co-Signed: 12/30/22 08:37 EDT\.br\Electronically Co-Signed By: Elyssa Hess\.br\Date and Time Co-Signed: 12/30/22 08:41 EDT U Microalbon 12-30-2022 Albumin DL <= 20 mg/L (U) [Mass/Vol] 10.9 microgram/mL Normal 0.0-19.0 [facility] Comment on above: Performed By: #### 2 [id number] #### [facility] [address] [place] [address] U Protein/Creat Ratioon 07-1 Albumin Elph (U) [Mass fraction] <6.0 Invalid Interpretation Code [facility] Comment on above: Result Comment: The reference range and other method performance specifications have not been established for this test; results should be integrated into the clinical context for interpretation. Performed By: #### 2 [id number] #### [facility] [address] [place] [address] Creatinine (U) [Mass/Vol] 23.2 mg/dL Invalid Interpretation Code [facility] Comment on above: Result Comment: The reference range and other method performance specifications have not been established for this test; results should be integrated into the clinical context for interpretation. Performed By: #### 2 [id number] #### [facility] [address] [place] [address] U Prot/Creat Ratio [facility] Invalid Interpretation Code .00-200.00 [facility] Comment on above: Performed By: #### 2 [id number] #### [facility] [address] [place] [address] Ambulatory Visit Summaryon 0 12-09-2022 Ambulatory Visit [...] EDT With: Erasmo CHOPRA, Raegan Adler Where: [facility] Invalid Interpretation Code [address] [place] [address]- \.br\ Friday 8:00 AM EDT \.br\ With:\.br\ Where: [facility] Patient Educationon 12-10-19 23 Patient Education Oncology Cancer Screening for Men [...] if anything looks unusual. Men with a acyhje-vtzy-ejcybu risk for skin cancer may want to see a loan documentation specialist (career and guidance counselor) for an annual body check. What are the benefits of screening? Cancer screening is done to look for cancer in the very early stages, before it spreads and becomes harder to treat and before you would start to notice symptoms. Finding cancer early improves the chances of successful treatment. It ma (more content not included)... Normal [facility] Urology Office/Clinic Noteon 12-09-2022 Urology Office/Clinic Note [...] C&S 11/14/22 *Tx'd with Keflex 500mg BID [id number]. Lt flank pain started about 1 month [...] urinary tract symptoms) S/p TURP 12/21/21 at [facility] by Dr. Ram - Mary showed BPH and radiation effect. Small focus of atypical glands with radiation effect. Was told at [facility] he would no longer have to CIC [...] [address] ct[address] SEs discussed. Rx sent to [facility]. -Consider adding bladder med if sxs do [...] next OV. Follow-up With When Contact Information ALLIE CHOPRA, Jeremy Avery, URL [facility] [address] [place] [address]- Additional Instructions: 3 mos no labs Patient Education Cancer Screening for Men I, Ita Orozco, personally scribed for Dr. Kelley on 12/09/2022 10:35:45. . Documentation recorded by the scribe, Ita Orozco, accurately reflects the services(s) (more content not included)... Normal [facility] Comment on above: Result Comment: Elec tronically Signed By: Jeremy KELLEY MD\.br\Date and Time Signed: 12/09/22 10:37 EDT\.br\Electronically Co-Signed By: Ita Orozco\.br\Date and Time Co-Signed: 12/09/22 10:36 EDT Insurance Correspondence Off [facility] 12-05-2022 Insurance Correspondence Office [id number] CD:127 Normal [facility] .Interpretation:on 3 HCV Ab IA Ql Comment Invalid Interpretation Code [facility] Comment on above: Result Comment: Not infected with HCV unless early or acute infection is suspected (which may be delayed in an immunocompromised individual), or other evidence exists to indicate HCV infection. Performed at: [facility] [address] [id number] PhD Matt Turner Performed By: #### 2 [id number], [id number], [id number] ####[facility] [address] [place] [address] HCV Antibody RFX to Quant PC Juanito 11-27-2022 HCV IgG IA Ql Non-Reactive Invalid Interpretation Code Non Reactive [facility] Comment on above: Result Comment: Perf ormed at: [facility] [address] [id number] PhD Matt Turner Performed By: #### 2 [id number], [id number] ####[facility] [address] [place] [address] Ambulatory Visit Summaryon 0 11-25-2022 Ambulatory Visit Summary RABIAMILAN :1950 Visit Date:11/25/2022 Ambulatory Visit Instructions Your Diagnosis Annual visit for general adult medical examination without abnormal findings Other problems related to lifestyle Hyperlipidemia Benign paroxysmal positional vertigo, unspecified laterality Hypertension History of prostate cancer Intermittent self-catheterization of bladder Morbid obesity due to excess calories Tests Performed Lab Specimen Collect [id number] Your Care Team Attending Physician - Raegan [...] CHOPRA, Jeremy Avery Where: [facility] Invalid Interpretation Code [address] [place] [address]- \.br\ Friday 8:00 AM EDT \.br\ With:\.br\ Where: [facility] CHEMISTRYOrdered By: SYSTEM SYSTEM on 11-25-2022 Cholesterol [...] Airborne, Droplet Precautions for MERS/COVID-19 : N/A SharonNaveenalvin Reyes 11/25/2022 8:00 EDT Medicare/Medicaid Summary Height/Length [...] % Numeric Rating Pain Score : 7 Sharon Nestor Reyes 11/25/2022 8:45 EDT Chief Complaint : Subsequent Medicare Wellness Visit Patient Counseled : Nutrition, Physical activity, Elevated BMI Pain Present : Yes actual or suspected pain Numeric Rating Pain Scale : 7 Primary Pain Comments : Back, hips, arms, hands, legs Sharon Nestor Reyes 11/25/2022 8:00 EDT Patient Preferred Method of Communication No Preference Hearing and Vision Screening FT FT Whisper Test Comments : No deficits voiced Vision Screen Comments : Wears corrective lenses, Follows with Dr. Krishnamurthy of [facility] Nestor Herrera 11/25/2022 8:00 EDT Advance Directive FT Advance Directive : No Patient Wishes to Receive Further Information on Advance Directives : No Organ Donation Consent : Yes Sharon Nestor Reyes 11/25/2022 8:00 EDT Procedures / Surgeries FT [...] FT Hazar (more content not included)... Normal [facility] Comment on above: Result Comment: Elec tronically Signed By: Raegan March MD\.br\Date and Time Signed: 11/25/22 17:40 EDT\.br\Electronically Co-Signed By: Nestor Herrera\.br\Date and Time Co-Signed: 11/25/22 09:19 EDT Lipid Panelon 11-25-2022 Cholesterol [Mass/Vol] 108 mg/dL Low 120-200 [facility] Comment on above: Performed By: #### 2 [id number], [id number], [id number] ####[facility] [address] [place] [address] Cholesterol in HDL [Mass/Vol] 32 mg/dL Invalid Interpretation Code [facility] Comment on above: Result Comment: HDL > or equal to 60 mg/dL: Low cardiovascular risk HDL < 40 mg/dL : High cardiovascular risk Performed By: #### 2 [id number], [id number], [id number] ####[facility] [address] [place] [address] Cholesterol in LDL [Mass/Vol] 53 mg/dL Normal <=129 [facility] Comment on above: Performed By: #### 2 [id number], [id number], [id number] ####[facility] [address] [place] [place] [address] Cholesterol in VLDL [Mass/Vol] 24 mg/dL Normal 7-40 [facility] Comment on above: Performed By: #### 2 [id number], [id number], [id number] ####[facility] [address] [place] [address] Triglyceride [Mass/Vol] 122 mg/dL Normal <=149 [facility] Comment on above: Performed By: #### 2 [id number], [id number], [id number] ####[facility] [address] [place] [address] Patient Educationon 11-26-19 23 Patient Education Caregiving [...] night-lights. ? Place frequently used items in neys-ex-yognw places. Lower the shelves around your home [...] the way. ? Do not use floor german or wax that makes floors slippery. If [...] include working with a physical therapist or small engine trainer to improve your strength, balance, and endurance. Where to find more information ? Centers for Disease Control and Prevention, [place]: www.cdc.gov ? National [place] on Aging: www.blane.nih.gov Contact a health care [...] health ca (more content not included)... Normal [facility] Screenson 11-25-2022 Screens [id number] 0CD:127 Normal [facility] C Urineon 11-15-2022 Bacteria identified Cx Nom [...] Locations R1: This test was performed at: [facility], [address] [place] [address], [address]- , [place], Normal [facility] Comment on above: Performed By: #### 2 [id number] #### [facility] [address] [place] [address] Family Medicine Office/Clini c Noteon 11-14-2022 Family [...] urgency with urination Dysuria: Onset: saw Pau Lowery 11/01 Symptoms: urgency OTC used: was rxed [...] He was following-up with Dr. Kelley at [facility] however, he does not want to follow [...] prostate) Again, patient was seeing urology at [facility] for this. Patient has refused to follow [...] after patient or guardian consented to allow [employer] Ricarda to record this visit. ANGEL technical specialist cytogenetics and provider reviewed before signing. ANGEL: Amanda [...] Oral, Daily (more content not included)... Normal [facility] Comment on above: Result Comment: Elec [...] Urnls Dip Stick Non-Auto w/o Micrscpy POC 51803 Your Care Team Attending Physician - Pau Bhatit Primary Care Physician - Erasmo CHOPRA, Raegan [...] Appointments Friday 8:00 AM EDT With: Where: [facility] Normal [address] [place] [address]- \.br\ Medications\.br\ What How Much When Why Instructions\.br\ New cephalexin (cephalexin 500 mg Cap) 1 Capsules By Mouth Every 12 hours BMI 34.0-34.9,adult Class 1 obesity due to excess calories in adult Pickup at [facility]/pharmacy #[id number]\.br\ Unchanged albuterol (Albuterol (Eqv-ProAir HFA) 90 mcg/ [...] Once a day (at bedtime)\.br\ Pharmacy Information\.br\ [facility]/pharmacy #[id number]: [address] [place], [place] [id number] [phone]\.br\ Test Results\.br\ Urnls Dip Stick Non-Auto w/o Micrscpy POC 75058 (11/01/2022)\.br\ Bilirubin Urine Dipstick - Negative\.br\ Blood Urine Dipstick - 1+ Small\.br\ Glucose Urine Dipstick - Negative\.br\ Ketones Urine Dipstick - Negative\.br\ Leukocytes Urine Dipstick - 3+ Large\.br\ Nitrite Urine Dipstick - Negative\.br\ Protein Urine Dipstick - Trace\.br\ Specific [place] Urine Dipstick - <=1.005\.br\ Urine Appearance Urine [...] Scrotal swelling\.br\ SOB (shortness of breath)\.br\ \.br\ Fidencio [facility] Family Medicine Office/Clini c Noteon 11-01-2022 Family [...] Urnls Dip Stick Non-Auto w/o Micrscpy POC 79355 3. BMI 34.0-34.9,adult (Z68.34: Body mass index [BMI] 34.0-34.9, adult) BMI education complete Ordered: cephalexin, 500 mg = 1 cap(s), Oral, q12hr, # 20 cap(s), Refills(s) 0, Pharmacy: [facility]/pharmacy #[id number], 193, cm, 11/01/22 15:23:00 EDT, Height/Length [...] q12hr, # 20 cap(s), Refills(s) 0, Pharmacy: [facility]/pharmacy #[id number], 193, cm, 11/01/22 15:23:00 EDT, Height/Length [...] tab(s), Or (more content not included)... Normal [facility] Comment on above: Result Comment: Elec [...] Where: [facility] Ambulatory Visit Summary RABIA, MILAN Avery :1950 Visit Date:10/18/2022 Ambulatory Visit Instructions Your [...] Medical Center Coding Summary.on 10-18-2022 Coding Summary. CD:[id number] Ww +PGhlYWQ+ST5ULLLvV68eq PIioQ0dO0JBJMsIJqviJYQ YXAgPEcVhszMcOY6zgAOcN XJu IC8+WF6cSGRlSdglwNUtu8 L2wMP2U41oco0tIXhpsNT6 AVQdKjZizhpvj8fqiDt7VX cuNmluOyBt VJNsdP80RIF7zB89Ph12zM WgdJXzg8kuwYf4QrNpBLXa WTT0cRqoRHfal0UiPKFzL5 8liTAhr8U2 YFRaqDwksPOiUkQicZK0iP 8cVBrvbbtad3efsvynOhz5 gl32gTQmk5D2jWG1S7Bmet F7NALweTAj UfnbiEQXlB0vfadzz8whtu qhBoPdSKAaMBu6QRc2WMHr tRonDsLzZN65VEZ0TYVfxv PuX5AmBALn sYvtVkI1c3N8Yd7EF1WBOh uxR2WVRCYIXTeneQO+PC90 yq33X5BuSnnrClt9ZQZrGR A9rAL5sQ7t OOPjFXofh1E2yJX7Y7Vlcb Fhes0pz2tbSBUfRSmmK18r mHTbf3E6VVFhyTJ1VUWvgS urMeFqoC22 Oyc+VGSkiKyxe8ZmGidmt3 syj2mrmZk9QquvNRXjmvJj lAmcXKT2k8CrYy4qPXNdfY Q1wLH0yL8i OhSwAiT4TXqlU312PeSrnA DtGvybS30rU2ZivYA+PHRy Gjb2CWTzaQujEO5mC5CxJU RpbmctbGVm gYitCF3jZDRuwkkmYORgvB 2gSGTpG5m2RxKpWhZ9HHwg L7WtGGOgmruoSw91wD2cHx FvSgY6KRsu L1NzvwP8ZDLqiTBnDBqeKE P1M09cf8F3HASxWDLlUZI3 pZX6eY1bbTdpgyeoxMCqhX sgdmVydGlj TJlmEOfwR368KYUzxBsaPh NvZGluZyBEYXRlOiAgMDQv MjgvMjAyMzwvdGQ+PHRkIH L0gUfzYEUe yVIvGGorOu6ymClyiOhtSG 2kOZVniovrGMWxxI9jVHRq iOIufKymHL6yLNTulumhn0 17IwQxNDP3 TBTowDVfN4CqqB7sWyUuYM EuKBGcC9HpeLViTStnE619 KBjoKsR3ZMKkvaMkV7AnET FsaWduOiB0 r8Y0Qa8Nl1HsizzjK5LmrA HxMrAxVjqhTOv9I2WqAoxg dHI+QO00GFGjPC76HQq4SB H8dOnhITiy NCUxB5VsrV2jKgZiODMsDF RkOyc+PHRhYmxlIHdpZHRo GJjsQTPuDeTycObpQS5xCs 9yZGVyLWNv lJhbsVCbDqIau6vrTSZrAS xbXJ2yfPozS2AiiYA5FRHw v6s7Bp75E45jH8NebQH+PG DpqAS6dSG8 bZ3jQrTrBnH0YRupH157Gy OcwUFqExugc8kbc1vdlWh5 HjD3JALvhvFtuXyjEAC7e6 EbTq83R37w IHdpZHRoPSIxNSUiIHZhbG pdot4ysS1hVs5+PGNvbCB3 wQU6uX9vVbGnDrN3AArqV0 49InRvcCIv Uuftc1ueu9rvpJo5HsNnSD UaoaEkmOurLLW2l2SnXh38 Q3NymJsdp9PrTqx5rn80yL Esk5K5uHI4 E6DbOZPqjgcjyEFoeUhaSU 2dHDJnfmmnDZYnqK5eJPEn F8e6VoPuHlU6DVbiU4Javg W5VVEpmKRu LOVeeBIEfR0cejpfy4ukyp ssPoNxFMMbDCl0ANb9POGx xLvgUkAyPUX9IuV9WYH6iB NlcI7hdQue avycoF4pAdl+IQR1iQYzjW UGHM3zQxgktEC+PHRkIHN0 lDfkQPmhIWWozE9jJDPtK8 y8FdHcScX9 TBmmY6KidjM8ZFQvgNSpAO UfhHSNeO9ktbhjl5gnlnml LpUmUZUxTLj3QVy4UUGzpN duOiBsZWZ0 WoW8IRI6xDCibR5piGznof vjrI3rFqn+QmlydGggRGF0 WTf4E8PiOqt2WTPmhNrlEE 0ncGFkZGlu Hk9xxYzxdCrcQH7bRLMwge utf991KzUqg9dqHPZsvBZd WRkhJFP9D88bk0X9TQCpUG HwCHH4tSH2 yM9rwUzsqwsbdKZmsOppeb EmwEmsXTtsUVrbC289JSKo nHyxZlJoSDe5H3HlMil6TG UntUadEI1o hORmWAfwHf5ibZjviHcaMK 7zAIQkpswps823HqRwo0bk FCWjdRGxANamVFE6Y39jd3 P8AWDoDOAn WTQ4oAX4yL4lcFjugqmykG VmdDsgdmVydGljYWwtYWxp N186GRJsoFrfRbHksAk4A2 HvSos8SCHq dQgnUA2ueUWwBIdfGv5whN aavPjeSK0aCSTmalmag428 UcPcc5kvUDYfaEPpBMncZU K9W93nq5J6 HHAdFFOxWJI3vJO1yH2fdC lnbjogbGVmdDsgdmVydGlj QOurFRkkI452ESYjxMwsCc BhdGllbnQg RCqfDKk3O3WnRxaspGU+PC 68EAFdRH30pJFjbLCfn6rg yYu4EfMdKCViWNJ9tQgeSM ncr8LzFLZg F64sfWPwz4A1OCVrrHivmV FfXbQqxFW8lA2qVIrigaff j9kkbyjuQlnwv8dfvw08lH 44J45qELfu ZHRoPSIzMCUiIHZhbGlnbj 7qiG7dWy8+GJXwpTE4hOO9 bR3eZYZaUlS4SUfeS890Xz RvcCIvPjxj i1joz6zluVz1SvY5MXWoly UsrJayRUN9r8ZgZb26R66y IHdpZHRoPSIyMCUiIHZhbG yhzl0udY4d Ii8+ZUTrvAM2nND4dM9qJe GrQrQ9LCteZ066BnOwiLSf NbxfV83bI8NunXS+PHRyPj b4IAYrzFqx YK9ciXUuPZdaSz6oXVY1Mj DxWdLfNMsxJ1NmEDTcfgob vldifTJ1CLVsVYKjaU83Pk 9udDogMTBw qUVCiY6uqckhz9vnlwdvSh SqGOWxIAx4FNm4VVQfcFcz DmHdSJJ2UsQ1TEE2cWVkoM 1hbGlnbjog uG8hU2QkQIMbvapiWf89dE 6qVrFlIcM3VIbpNgg+REVB FeqhI9aJSIaCSZTJWV91NN 81gKKke1G7 pDP1K0DtCKEzpngfkuyxmA S2CVGqCAMnuY46dJNxGDgg Zm7ea7H1q059IQKiUQQldX 56Vr1fsOxb TPNggJCOhL7ygwsfu2bbjr trGqNoEALdPHb3BXe6VMZh vNozCcWfGBM7ZdH8GZK3hA EolO1zrLqj xluliQ5tUcq+MDMvMjcvMT c2OGoqkFP+WNGiTBD0tQji JFpmPPPadF6mOKLkL3p8Kk NcTmR1YXfy H1LxPKEacodqFq88pM4pVv SzUaR7TCbvU6ZxocG3LPTf sWJoRWblCYY5G33lo9I4IB MwMDAwMDA7 tJI6rS3bwLgjvdxaaWGzwV hbyhMhaXphCEfnQDoiR817 IHRvcDsnPjczIFllYXJzPC 65NN52tMBj l5R0fKS8P9GcADGsiosgtz gsxWL5YDRaCTKmxY05yJTm ZOaaUl7ew9G8l871ERXhAS YwmA67Oh6z lDbfUREymYTXvA5shpsuu0 pwwwwgJsPwRYUgSHo5KSt9 OAJngKhrTtBfPQU1ZjC4CC D1fHHogT6m fClvqndymC4pMsn+TWFsZT wvdGQ+RQQnVCL3wMzbQIwg ZGFnlJ7iXRUfP4z6LcPfEa M8SWvxR0Ny ZNZkfhgfYa61oK2cGyGlNx N0PCshV7YrgzL7FWSdlZJb OTioALD2U97wq1I9VIFrFO SoVRF1eOO2 eT5whWzruomrgCOloHpvin ZyhYgrTHkaVFdwJ066UQPh wIlbVj34lSFhnOlvlwY4S6 RkPjwvdHI+ FZ93KYIbQT94xRYdcRIeh3 oycMh1BjImVZLmLAG3fEal ZHuug3SwNLXyJ35tcRKiu7 D4YOYdiAep lALfHiEseYP7dM4qWJodwq xgd8lcnvokRqlno9ithr08 aD72C51cSPurTXSdKINrTK UiIHZhbGln ws6qyP1fEd5+LXSiiTE4eQ A6gR4uEyJzEtH3SZqjD402 DoPvbHDbPoxwc8tbk0myfM f1MxKwBKOs erFxzKdwTPQ5w0IpYh61S5 9sIHdpZHRoPSIyMCUiIHZh yPwszy6eqW4xTm9+PC9jb2 rwum05kF35 dHI+XFMdWVS1oAjyASyqMF GoqK8jONzeCuV0NMGmDvXy mF96mLEeKLdfYy0mlRursH buMG6zMZCp vhcat181HxFnv5ucTVLzsC UuEKpqXRY3K56xq4T6AKJf NUYgAFE7tPJ3bU5xnVfupj ogbGVmdDsg aeApoZnoJXwdDRweO065WY LrsRufOpCwfQDkA3kwucRH EE2oYneuvKB+JZSxIXZ7pZ xlPSdwYWRk yY3yFTAhE5d8DrJeZbD8EY tiS1IuepQ7XSMauVIlOURe kYJOyK5uweokb2hjejfwHd AwMDAwMDt0 ZXd5ZUVqyVsqSjSyDFU6Qy A8VZD4kWLhlE7ggMyhmngt wB7eSwl+RklOOjwvdGQ+PH MuOLQ4iBkd YKgmBMMppP9jFQTsV4h0Om FaSxE5XIztN8UghxC0BULh kKSwLJWdjBFJkJ3dafcki9 xvcjogIzAw RKQpRRp3XAm7QXTvzDbpTn SaFVR9MgA0OJS5tSLvdF5k nDzplzalyE4zVre+TVJOOj wvdGQ+PHRk NYF9sWexYThtBILkzV9rQD RpW1v9WtZmXdY0JOgzA6Mc wrT9DSBugYPaPNUcfRGZhW 8pkufnj8gc ilmmHdWsRXDfFNu8YQw9VH XliMrsLdIfLND1OtQ6YLY8 eEZuuI1ddYvjoyglbB9kGm c+CVO6GOQ6 DC24DK47U1SbIwmyjJMpzV U+PHRhYmxlIHdpZHRoPScx ICCeBeYgnZklIZ1kFj7jAL VyLWNvbGxh cHNlOiBj (more content not included)... Normal Nicolas [facility] Family Medicine Office/Clini c Noteon 10-18-2022 Family Medicine Office/Clinic Note Chief Complaint cough, [...] dizziness when coughing spells hit. Will order Tidal and pt will remain off of work today and tomorrow, reviewed chest and spine xray results Ordered: benzonatate, 200 mg = 1 cap(s), Oral, TID, X 10 day(s), # 30 cap(s), Refills(s) 0, Pharmacy: [facility]/pharmacy #[id number], 193, cm, 10/18/22 13:04:00 EDT, Height/Length Dosing, 128.5, kg, 10/18/22 13:04:00 EDT, Weight Dosing 2. BMI 34.0-34.9,adult (Z68.34: Body mass index [BMI] 34.0-34.9, adult) BMI education complete Ordered: benzonatate, 200 mg = 1 cap(s), Oral, TID, X 10 day(s), # 30 cap(s), Refills(s) 0, Pharmacy: [facility]/pharmacy #[id number], 193, cm, 10/18/22 13:04:00 EDT, Height/Length [...] day(s), # 30 cap(s), Refills(s) 0, Pharmacy: [facility]/pharmacy #[id number], 193, cm, 10/18/22 13:04:00 EDT, Height/Length [...] 3 ref (more content not included)... Normal [facility] Comment on above: Result Comment: Elec tronically Signed By: Pau Bhatti\.br\Date and Time Signed: 10/18/22 13:29 EDT Provider Letteron 10-18-2022 Provider Letter October 18, 2022 MILAN CAMARILLO [address] [place] [id number] MILAN CAMARILLO 1950 To Whom It May Concern, Please excuse above patient from work. Date of Illness: From: 10-17-22 To: 10-18-22 May Return to Work On: 10-24-22 Restrictions: _ Comments: _ Sincerely, [place] [address] Nestor [facility] Family Medicine Office/Clini c Noteon 10-16-2022 [...] and non-productive cough He has been taking lsan-jcp-zizuiln cough with some relief. His shortness of breath is not exacerbated with laying down, but is worsening. He utilizes 1 pillow to sleep at night. He denies a history of congestive heart failure. He is not established with a antiquer. He follows up with Dr. Baez for his COPD. He does self-catheterize himself [...] We will have him scheduled with our antiquer and we will order an echo. The patient will be prescribed Lasix and we will continue to monitor. The patient has been made aware of this and is on his way to get testing done at this time. ATTESTATION: Documentation services were performed after patient or guardian consented to allow Hugh Sewell Ricarda to record this visit. ANGEL technical specialist cytogenetics and provider reviewed before signing. ANGEL: Amanda [...] Oral, BI (more content not included)... Normal [facility] Comment on above: Result Comment: Elec tronically Signed By: Raegan March MD\.br\Date and Time Signed: 10/16/22 08:08 EDT\.br\Electronically Co-Signed [...] Signature): 10/16/2022 10:28 am Signed by: Philip Soraino MD, V. Transcribed by: BRANDON Technologist: AGUSTIN Technical Comments Radiation Dose: Ka,r in mGy = na DAP = na Normal [facility] Ambulatory Visit Summaryon 0 10-15-2022 Ambulatory Visit Summary RABIAMILAN Bennie :1950 Visit Date:10/15/2022 Ambulatory Visit Instructions Your Diagnosis Chronic obstructive pulmonary disease, unspecified COPD type Cough SOB (shortness of breath) Your Care Team Attending Physician - Raegan March MD Primary Care Physician - Raegan March MD. This Is Your Medications List albuterol (Albuterol [...] EDT With: Erasmo CHOPRA, Raegan Adler Where: [facility] Invalid Interpretation Code Cough [facility] Auto Diffon 10-15-2022 Basophils/100 WBC (Bld) 1.2 % Normal 0.0-2.0 [facility] Comment on above: Order Comment: Order Added by Discern Expert. Performed By: #### 1 [id number], [id number] #### [facility] [address] [place] [address] Basophils/Leukocyt es Auto (Bld) [Pure # fraction] 0.1 E9/L Normal 0.0-0.2 [facility] Comment on above: Order Comment: Order Added by Discern Expert. Performed By: #### 1 [id number], [id number], [id number], [id number], [id number], [id number] #### [facility] [address] [place] [address] Eosinophils/100 WBC (Bld) 3.5 % Normal 0.0-8.0 [facility] Comment on above: Order Comment: Order Added by Discern Expert. Performed By: #### 1 [id number], [id number], [id number], [id number], [id number], [id number] #### [facility] [address] [place] [address] Eosinophils/Leukoc ytes Auto (Bld) [Pure # fraction] 0.3 E9/L Normal 0.0-0.5 [facility] Comment on above: Order Comment: Order Added by Discern Expert. Performed By: #### 1 [id number], [id number], [id number], [id number], [id number], [id number] #### [facility] [address] [place] [address] Lymphocytes/100 WBC (Bld) 15.0 % Normal 14.0-50.0 [facility] Comment on above: Order Comment: Order Added by Discern Expert. Performed By: #### 1 [id number], 7691174, 0671531, [id number], 1856975, [id number] #### [facility] [address] [place] [address] Lymphocytes/Leukoc ytes Auto (Bld) [Pure # fraction] 1.1 E9/L Normal 1.0-4.0 [facility] Comment on above: Order Comment: Order Added by Discern Expert. Performed By: #### 1 [id number], [id number], 3684094, [id number], [id number], [id number] #### [facility] [address] [place] [address] Monocytes/100 WBC (Bld) 10.1 % Normal 4.0-14.0 [facility] Comment on above: Order Comment: Order Added by Discern Expert. Performed By: #### 1 [id number], 6991096, 2255609, [id number], 7974417, [id number] #### [facility] [address] [place] [address] Monocytes/Leukocyt es Auto (Bld) [Pure # fraction] 0.8 E9/L Normal 0.2-1.0 [facility] Comment on above: Order Comment: Order Added by Discern Expert. Performed By: #### 1 [id number], 6275761, 6462587, [id number], [id number], [id number] #### [facility] [address] [place] [address] Neutrophils/100 WBC (Bld) 70.2 % Normal 36.0-75.0 [facility] Comment on above: Order Comment: Order Added by Discern Expert. Performed By: #### 1 [id number], 6863790, 1418831, [id number], [id number], [id number] #### [facility] [address] [place] [address] Neutrophils/Leukoc ytes Auto (Bld) [Pure # fraction] 5.4 E9/L Normal 2.0-7.5 [facility] [facility] Comment on above: Order Comment: Order Added by Discern Expert. Performed By: #### 1 [id number], 4604915, 0085204, 43095868, 9678487, 39811216 #### [facility] [address] [place] [address] BNPon 10-15-2022 Int Ctr BNP Pass Normal [facility] Comment on above: Performed By: #### 1 9375844, 6110390, 1596873, 73984225, 9254058, 05427329 #### [facility] [address] [place] [address] Natriuretic peptide B (Bld) [Mass/Vol] 21 pg/mL Normal 5-80 [facility] Comment on above: Performed By: #### 1 8492590, 8122800, 9749869, 71705317, 9731099, 69108826 #### [facility] [address] [place] [address] CBC w/ Auto Diffon Erythrocyte distribution width (RBC) [Ratio] 14.7 % High 10.9-14.2 [facility] Comment on above: Performed By: #### 1 4614086, 5820314, 7553050, 96207279, 3712088, 53785930 #### [facility] [address] [place] [address] Hematocrit (Bld) [Volume fraction] 40.3 % Normal 37.7-49.0 [facility] Comment on above: Performed By: #### 1 4737914, 5105014, 8253663, 91830051, 9243808, 29902118 #### [facility] [address] [place] [address]83 Hemoglobin (Bld) [Mass/Vol] 13.7 g/dL Normal 13.5-17.5 [facility] Comment on above: Performed By: #### 1 2964560, 3200501, 5542688, 69555519, 7311216, 09797245 #### [facility] [address] [place] [address] 16261 MCH (RBC) [Entitic mass] 28.8 pg Normal 27.0-34.0 [facility] Comment on above: Performed By: #### 1 4425837, 6531828, 7165764, 72583470, 8310399, 68837426 #### [facility] [address] [place] [address] 41903 MCHC (RBC) [Mass/Vol] 33.9 g/dL Normal 31.4-36.0 [facility] Comment on above: Performed By: #### 1 3729413, 1327821, 5606922, 87403552, 0175833, 89213261 #### [facility] [address] [place] [address]2463 MCV (RBC) [Entitic vol] 85.1 fL Normal 80.0-100.0 [facility] Comment on above: Performed By: #### 1 7014667, 9101037, 7161745, 92763744, 1771642, 60975578 #### [facility] [address] [place] [address] 33840 Platelet mean volume (Bld) [Entitic vol] 9.4 fL Normal 6.4-10.8 [facility] Comment on above: Performed By: #### 1 7682943, 2241683, 4199284, 52286331, 7864366, 12669348 #### [facility] [address] [place] [address] Platelets (Bld) [#/Vol] 212.0 E9/L Normal 150.0-500.0 [facility] Comment on above: Performed By: #### 1 0516500, 8608226, 3866526, 24669967, 8800858, 55206116 #### [facility] [address] [place] [address] 58845 RBC (Bld) [#/Vol] 4.7 E12/L Normal 4.3-5.9 [facility] Comment on above: Performed By: #### 1 2426959, 8064797, 6476552, 47001375, 6443682, 89899458 #### [facility] [address] [place] [address]642 WBC corrected for nucl RBC Auto (Bld) [#/Vol] 7.7 E9/L Normal 4.0-11.0 [facility] Comment on above: Performed By: #### 1 4369079, 4752508, 6825890, 11779756, 3384922, 86496899 #### [facility] [address] [place], [place] [address] CMPon 10-15-2022 Albumin [Mass/Vol] 4.0 g/dL Normal 3.3-5.0 [facility] Comment on above: Performed By: #### 1 3136462, 9227397, 6230884, 44909723, 0624680, 60270777 #### [facility] [address] [place] [address] 14541 Albumin/Globulin (S) [Mass conc ratio] 1.0 Low 1.1-2.2 [facility] Comment on above: Performed By: #### 1 2719051, 1622723, 9318688, 67105594, 2756162, 98678814 #### [facility] [address] [place] [address] 41205 ALP [Catalytic activity/Vol] 76 Int._Unit/L Normal 21-98 [facility] Comment on above: Performed By: #### 1 8555433, 3951489, 5615071, 75488560, 7284388, 13457201 #### [facility] [address] [place] [address]8972 ALT No additional P-5'-P [Catalytic activity/Vol] 26 Int._Unit/L Normal 6-46 [facility] Comment on above: Performed By: #### 1 4246509, 9986289, 5673033, 59112908, 0372332, 68148169 #### [facility] [address] [place] [address] Anion gap [Moles/Vol] 13 mmol/L Normal 6-16 [facility] Comment on above: Performed By: #### 1 1613554, 9767724, 9336712, 39540253, 8120708, 22674642 #### [facility] [address] [place] [address] AST [Catalytic activity/Vol] 20 Int._Unit/L Normal 5-43 [facility] Comment on above: Performed By: #### 1 6360958, 4209643, 6831177, 72751054, 6273843, 72460967 #### [facility] [address] [place] [address] Bilirubin [Mass/Vol] 0.5 mg/dL Normal 0.0-1.1 [facility] Comment on above: Performed By: #### 1 2666388, 0556611, 9249427, 72337960, 0540284, 53804755 #### [facility] [address] [place] [address] Calcium [Mass/Vol] 9.0 mg/dL Normal 8.9-11.1 [facility] Comment on above: Performed By: #### 1 3052085, 2210135, 2534955, 89444110, 0284263, 58938125 #### [facility] [address] [place] [address] Chloride [Moles/Vol] 104 mmol/L Normal 101-111 [facility] Comment on above: Performed By: #### 1 4382139, 0877143, 9850536, 54024871, 7231522, 41514057 #### [facility] [address] [place] [address] CO2 [Moles/Vol] 22 mmol/L Normal 21-31 [facility] Comment on above: Performed By: #### 1 3148596, 2178433, 0946794, 39862762, 9355657, 58921342 #### [facility] [address] [place] [address] Creatinine [Mass/Vol] 1.1 mg/dL Normal 0.5-1.3 [facility] Comment on above: Performed By: #### 1 9237139, 8989298, 3336920, 18908661, 7764234, 48188686 #### [facility] [address] [place] [address] Globulin (S) [Mass/Vol] 3.9 g/dL Normal 1.4-4.0 [facility] Comment on above: Performed By: #### 1 4075058, 6202000, 7096792, 84790155, 0313239, 87214123 #### [facility] [address] [place] [address] Glucose [Mass/Vol] 92 mg/dL Normal 55-199 [facility] Comment on above: Result Comment: If t his glucose result represents a fasting glucose, interpretation should refer to the following reference range: 55-99 mg/dL Performed By: #### 1 3899613, 2806972, 7109591, 78374442, 3633295, 89165433 #### [facility] [address] [place] [address] Potassium [Moles/Vol] 3.7 mmol/L Normal 3.5-5.3 [facility] Comment on above: Performed By: #### 1 7412002, 1877226, 1499618, 39427917, 1478449, 72476544 #### [facility] [address] [place] [address] Protein [Mass/Vol] 7.9 g/dL High 6.0-7.8 [facility] Comment on above: Performed By: #### 1 0142930, 2882988, 0192688, 17303653, 1459028, 28374504 #### [facility] [address] [place] [address] Sodium [Moles/Vol] 135 mmol/L Normal 135-145 [facility] Comment on above: Performed By: #### 1 9971723, 5081065, 6888973, 77235169, 8257602, 35488538 #### [facility] [address] [place] [address] Urea nitrogen [Mass/Vol] 13 mg/dL Normal 5-21 [facility] Comment on above: Performed By: #### 1 9420997, 4159898, 1543714, 28779205, 3628236, 98449860 #### [facility] [address] [place] [address] Urea nitrogen/Creatinin e [Mass ratio] 12 No Units Normal 10-20 [facility] Comment on above: Performed By: #### 1 4281103, 5332671, 7215111, 51089579, 1176070, 84433010 #### [facility] [address] [place] [address] Consent for Treatmenton 09-22 Consent for Treatment [id number]#[id number] 0CD:127 Normal [facility] PSA Screen, Totalon 10-16-19 23 Prostate specific Ag [Mass/Vol] ng/mL Normal 0.1-3.5 [facility] Comment on above: Result Comment: The concentration of PSA determined by different manufacturers can vary due to differences in assay methods and reagent specificity. Values obtained from different assay methods cannot be used interchangeably. The methodology used for this result was chemiluminescence using [employer]'s Access Hybritech PSA reagent. Performed By: #### 1 0444766, 0302734, 7322558, 61465989, 5760619, 23379294 #### [facility] [address] [place] [address] XR Chest 2 Viewson 3 XR Chest [...] mGy = na DAP = na Normal [facility] eGFRon 10-15-2022 GFR/1.73 sq M.predicted among non-blacks MDRD (S/P/Bld) [Vol rate/Area] 71 mL/min/1.73 m2 Normal >=59 [facility] Comment on above: Order Comment: Order added by Discern Expert. 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 Kidney failure is indicated at less than 15 mL/min/1.73m2. Performed By: #### 1 4236019, 4196711, 7843190, 70834909, 1252468, 31481610 #### [facility] [address] [place] [address] Ambulatory Visit Summaryon 0 10-07-2022 Ambulatory Visit [...] Non-smoker Pyelonephritis Renal mass Scrotal swelling Normal [facility] Family Medicine Office/Clini c Noteon 10-07-2022 Family [...] history of COPD. He sees Dr. Katja Baez for his COPD. He takes Stiolto. He [...] after patient or guardian consented to allow [employer] to record this visit. ANGEL technical specialist cytogenetics and provider reviewed before signing. ANGEL: Sarah [facility] Follow-up No qualifying data available Problem List/Past [...] mg Tab, 2 (more content not included)... [facility] Comment on above: Result Comment: Elec tronically Signed By: Raegan March MD\.br\Date and Time Signed: 10/07/22 14:38 EDT\.br\Electronically Co-Signed By: Sarah Nieto\.br\Date and Time Co-Signed: 10/07/22 12:53 EDT PT - Assessmentson 3 PT - Assessments [id number]#1. 00CD:127 [facility] Lab Reportson 2022 Lab Reports [id number]#[id number] CD:127 [facility] Coding Summary.on 09-03-2022 Coding Summary. CD:[id number] Gh 0bWw+PGhlYWQ+LS6IOWHjB 49gwCMfyA1pX7CNJYfLRog gDDRCRZnTNuAihkRvFR9ad XNjZXJu IC8+HU9dRJZlNyoloKNvw3 I3dVC8X34zah9mLJpaeXY2 KDXmLcRmmyehm4croJb5MP cuNmluOyBt TEWiuB74BPX7tE21Zc77eE ZgvGQnp5dfuRg1YxBxRDOk ZFH5uJsnVKlkq8KvDUYsT8 3mmYXxt3Y2 QWGauGmdqSSmGhNktTW1qR 8oSIzowsttj4qdtthtFdk4 bd79dJOld4E9uTK2J4Tyjf P3JZZarREx HfrciRPBoN4odkujh1znjf ukUrBfBCMsUEe1ENo9IGAv kUtyOvKnNQ57UAF0WLKall WkU9JnQWAb eDsfHbU0x5A2Wf3UL4UUTa muP1ZUVOXISHttbXR+PC90 je14V3ZeYnkoCll8KTLcVS C5bNT2qY2p FEPaXYlbj6M7vIM5D3Igpu Hhca4sa6zcMLShRStsE12z fJTpo1P5CSXmqRA6GAWvzB qlZcKwxS95 Oyc+QMNwaKebt8EcAeplv6 mbx6uvxEy8OspwMFAkxnTe vPrsHVV8j4WmGo2rFLXqoL V4wIU2xL8s LkJkSqH6GFkdH196DcQzwE CsIhhiR71dO8LajJZ+PHRy Diu3CJImzDqkSR1qJ9DvBV RpbmctbGVm dFreGS9lKGZwuhztPGCmxA 9iDWMxD0a1ErOmCvM5IZgb X8DmIGXwmyqnXt41xL3rOf MyYsJ8LGee T9OczhA0ZWIydMKjKQtuAQ T4P37qj1B1EBYaQURxIGW4 hTU0eR6twZxupsjpoEMzeC sgdmVydGlj BQctBFraQ574ECLavAssOy NvZGluZyBEYXRlOiAgMDMv MTQvMjAyMzwvdGQ+PHRkIH K2nQaaAGHm mLWmUNzsFs5keFwaoBozHT 4gDKQvdiplZHBgsW1jCKGa zQZanZwqFO1rYKWqbbaeg8 64DqLhCJC5 ANGyyUIxV5VffF9cGoQcXE DvAWYuH4FndDKhNRqoZ966 GRpwGkQ1QYRmggSzF6IuUV FsaWduOiB0 x3T3Jz6Kl2ZfvthmU6GqmK XwGeUyJntzDJj0A2IwYfqy dHI+TZ82FOFfNH73XYd0KK C4nCkjCBxw ZRPzM7QuxU1jGiZsNCZiBD RkOyc+PHRhYmxlIHdpZHRo YKedMSEpKfQnsHeiRS4uSh 9yZGVyLWNv oKlltWTuUbMks2kaSOZbBP pnTC6hoEchV4AzyFM4FYPc s6a1Aj59R10aH1ZzgUN+PG CppCC4lMD6 pE2vTcWgAjT4SUgnD546Sc DwmPEeIuurh6yfh7ludTu4 DnD4MLMvbqCihJsuROB9j0 BaOu04V65b IHdpZHRoPSIxNSUiIHZhbG szue4uuV9wYd3+PGNvbCB3 vNK1qB6ePiFyUdL6BUbpJ2 49InRvcCIv Akomt0dzh5daqOs5UcNaRU TgvjKzdWfxZVM7a1SnZo34 Z4TexAsva1NfJyn1zg65iJ Cxp3S1yJB7 L9EaSWTnufdeaLXuiFiiOF 4zVKMkwoxjWWEjhZ6cDWAk Z1u7ZaMdTjH7IKmiM0Jwnk O0JQTtfGLk SWRnkNCXgA4adadjp1iapb dtEtWfHZRxZQk6LOb9MYPs yUbzOnBfLWO1KzN7JZE5uQ ZppP5onEnd ccrioX7fBnd+ODT3rDUmdW NLUQ3rGmykqDZ+PHRkIHN0 iImpCBnsBISkhI9pKCXtN7 p2ZjNfQuX9 LHvvN6MunoV5CROnrMRaQH FzeEUHuI1jbztsg1xcrwjs TsDkXSRvRYu0CZi3CHMraE duOiBsZWZ0 ZaB7LGI4xFYbrF2zyCdwya nuwL4mNfl+QmlydGggRGF0 XDp4X5FfHqr2ESOstZopFD 0ncGFkZGlu Xl6hiXpxzMfuDV5kGXLipu lna565YaEwc5whWORmtEAi HOygDYF8J22uy4F2VZJoEL GkZEU3cQJ7 lP4ljWzpujqpbYIcdQruaj WmgXwbQRerMDptH312JBEj aCjsBfAuKTb8I5GdMys0EH PvvQimFV0q uUXxKEcxAw6gyRwgsQqvDV 5rSOTbthyla264WwNyt4aw SJNbwVSxZEyeRXK2V23ol5 Q9QBCoBSMi QON5vQQ5gY6duJhbkyjtmD VmdDsgdmVydGljYWwtYWxp Y488XPOntMuhUnPbuZz8A8 HrZor7ASBd dPvtPQ1fvHDjKClpYh0ryG xxdIafTZ9sRGXaulhoc195 KkIac4bwALXznEApBBowBF O2V23ah6T6 JJPlLDQfYOJ9wIN9xJ6rhT lnbjogbGVmdDsgdmVydGlj VJowEQsrO251WFCiqSceQk BhdGllbnQg CDymEKl0G7WbGsdxxKB+PC 03VBEkAG33hHYkjCGhc1yy yMq4HqCsHJRmTRG8qZxzGY lfp4YtJQFh M73mhUSbu5Z1MTDcaZlvhN WcIpLqxXT7wA2pBTcvinbf z3jeqorjNewxx1yagn12kF 01W71hZEcu ZHRoPSIzMCUiIHZhbGlnbj 4dsT2eTt7+TRRmfXE9lWX4 cJ3yWIEpYaL0FUmaZ667Mz RvcCIvPjxj d5gwx7rdeKq8DdD3TZPlsc FlhXfsHXM8k2KzLj74R25w IHdpZHRoPSIyMCUiIHZhbG gwsy2phI4p Ii8+BOQrwCH2oDX1mU0iHz OwZtJ4CXmzG295TkZeuYOw CppcA47tC9XiaLC+PHRyPj n7BOAjyIds ZY9xuYZcMQivTu7mNFU3Dp ZzDqAhUOhvP5PgUKWrhlko rhwxmTB4OLIfINQqsY23Hd 9udDogMTBw mZEKwY7dtfrpy9wrtfbkBk OqNPFzQDg1LQc8CVHwcRcv LxRuCBN5KoP0LGD4aFQdwS 1hbGlnbjog bV1oK3QbLUCxlfluDh53rV 5rXpPoWnY1RHkpIeh+REVB CafyX6qUXJzCSTFGQC97ML 70jLOzd7Y8 rEQ5P5AiGQHberrirnlleC J4KQCuKGDipH49vHHuHAmo Yy3td2M1u281HLGvZWMgdY 22Kw5fyQli UZWzlBDLsU7qfquyr7zmee hdQzPkBVSbAYu4YGb4KUKy jYinOwUpEWF7WyN7LDI2aT IswR0dnLfz szpzaP2gLlr+MDMvMjcvMT h8ZDxjfLK+LJWfDHC6sMov XYtuTEWmgX0yHXSeC8p2Dr OpGxQ6SKxd F4RzHFUhajvmOf01pA1vSr SjSaP5CBaaS9UxyaG2YLLi sYFcWGbeQFR1A92et8D4FE MwMDAwMDA7 dWQ5fH2ufDfgztjauGVolZ hykpWfjQcuHVmsKXevU225 IHRvcDsnPjcyIFllYXJzPC 59UR21qACl y5M7mGT3W8ObVBBhgcqpxv gbqNB5RFBuGTXveV29oTMj ZConWk9ty7D7x746PTRpZL ZfgM66Ar6j sLccQGFttGXYcT6kzolbo6 sspvdwNyPsFCUlIUu6ZKn7 AWBoqAswKgOvOTR9GdD4SJ P4zPHvcB6o aSdqcitovS4mNkm+TWFsZT wvdGQ+FZVdIYW2bLgrWQqy TMPpeA7lXGIxG6b8MzBbKv I3KTzwQ8Xv RJJqngesTe46cH3zTjFpEe J3CVduY8DtkqD5QULelESi OGcmBTV7X41qz9T7WTTlHU GtNRH6cMV6 rQ2nsMehxfvtmYIalLrxnz MjqRopHTziTTjaG529YMZa mWxwWlIwE5XizmhoBgobfI Q+AL09dx10 D7YcLfnuCzn3DDEaUHF7wK B7pO9jZOUqLIbas7M9aDS6 J6SfzmNxzk5mv3gmOBUeHP bmV63nwSBh i9J9UYAwcHO4OVAnvCegAh FmtG15Rgh+UNWjeGlzf3Ic Rxbcn0jmi6mxqPk7ExTkIT IgdmFsaWdu BZG5a5IwXd26X15bWFpmPG EgEYLjPSYgERJoaAdcjb9l aU6rDr4+SBKfsDK6sMR4zS 7kYdXkXiT8 UUbpT190CsNemWOjCibso2 odd8fvrOz9AqYzBXLexmKf iRjnSPT1h3XiWq66J5YwpV azk6XyShv2 bw10cLJiz4W0oEO5V5HiJY UxgqcmjFDjtFdiEN7nFUMg odzoTFXdhJ5wCOKcK1n3Hg NgGkR3CWaj Z4HcteI5GBEypPIkIYTciI TBhE7gpopac6rnsxinRcAn CXZxJCn4KNc2YQQseSanKf HfWPV1MaB4 ICX8pFYbzV7iiFwsytdusD 9wOyc+VOy2h5ruuYHvJG4x nAB5WB59FU98hRTpw1Z4nO W2E7EmRAVv gbvmzubexEO6UBXnHSMoqE 76Cv9okTapOb2qXJRaVUQ9 ZOHkuNEuC5FliI1iGbNaZF TqVKEpY0Lg iCAxIXysT424MFnpBzG6QJ IwwlNwK4ZvTGQrbUndZmV0 i3D3Eq2RVY21RB40IZ14zF Aru4C5nYC3 Y1RsWDCfftkavzostCG0HN WsDNZfqT52Sw3ptRfbCj6h DPXnLRC7FQYudQApO3CkwI 9yOiAjMDAw UOQzP7BjbDFvTDnqC940XX tlJdK2LIWzfxXcG1EdSEBi tKfqJrJ1x8R0Pj4GYk36ER 40QX38wVHh y6R2cGI1K7NyJODarvzuoy lggFZ7JVWhIDBvyK06Ev9o eNfuJd3xZCVfVIJ7USGpjR IlU8FiaC1b IvAqMXYdPMPdE0CmbUAaNN uvX796JRuyTkY2HJFlubOj X3SkZNTvoWqcGmN0d8E0Wn 9XZRhtpzm8 J7HkUyibpPK+DZ09ZGRkCB 49qOGzyFWmt6jwtVv5KgXt GCOzIQH9jRsyGQmiq1TpZR GeN69dvERb c2U6 (more content not included)... Normal [facility] Consent for Treatmenton 08-21 Consent for Treatment [id number]#1.0 0CD:127 Normal [facility] Family Medicine Office/Clini c Noteon 09-02-2022 Family [...] work and suddenly felt dizzy. 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 He was fine last night and got everything ready to go to work. He drank 2 cups of coffee this morning. He felt the same after drinking 2 cups of coffee and the dizziness came out of nowhere this morning. He took his blood pressure and it was perfect. He does not see a antiquer. He notes that he does not have [...] he may be able to do a Can-Hallpike test at that time to help with [...] Melodie Chowdary to record this visit. ANGEL technical specialist cytogenetics and provider reviewed before signing. ANGEL: Chloe [...] (05/07/2017), Brachytherapy (09/19/2016), (more content not included)... [facility] Comment on above: Result Comment: Elec tronically Signed By: Erasmo CHOPRA, Raegan Adler\.br\Date and Time Signed: 09/02/22 10:41 EDT\.br\Electronically Co-Signed By: Chloe Aguiar\.br\Date and Time Co-Signed: 08/29/22 14:34 EST PT - Assessmentson PT - Assessments [id number]#1.0 0CD:127 [facility] PT - Consentson 09-02-2022 PT - Consents [id number]#1.0 0CD:127 [facility] PT - Home Exercise Programon 09-02-2022 PT - Home Exercise Program [id number]#1.0 0CD:127 [facility] Patient Educationon 08-30-19 Patient Education Nutrition BMI for Adults Body [...] height. This can be done either in [place] ([place] or metric measurements. Note that charts are available to help you find your BMI quickly and easily without having to do these calculations yourself. To calculate your BMI in Finnish ([place] measurements, your health care provider will: [...] problems. ? BMI can be measured using Finnish measurements or metric measurements. ? To interpret [...] 02/18/2005 Document Revised: 05/22/2018 Document Reviewed: 04/22/2018 [employer] Patient Education ? 2019 Search to Phone. [facility] Provider Letteron 08-29-2022 Provider Letter August 29, 2022 MILAN CAMARILLO [address] [place] [id number] MILAN CAMARILLO 1950 To Whom It May Concern, Please excuse above patient from work. Date of Illness: From: _08/29/2022 To: _09/01/2022 May Return to Work On:09/02/2022 Restrictions: _ Comments: _ Sincerely, [facility] Advance Beneficiary Notifica tionson 08-27-2022 Advance Beneficiary Notifications [id number]#1. 00CD:127 [facility] Consenton 08-27-2022 Consent [id number]#1.0 0CD:127 [facility] Consent [id number]#1. 00CD:127 [facility] Advance Beneficiary Notifica tionson 08-26-2022 Advance Beneficiary Notifications [id number]#1.0 0CD:127 Normal [facility] Ambulatory Visit Summaryon 0 08-26-2022 Ambulatory Visit Summary MILAN CAMARILLO :1950 Visit Date:08/26/2022 Ambulatory Visit Instructions Your Diagnosis Back pain Arthritis Hyperlipidemia Hypertension Impotence Intermittent self-catheterization of bladder, Non-smoker History of prostate cancer BMI 34.0-34.9,adult Your Care Team Attending Physician - Erasmo CHOPRA, Raegan Adler Primary Care Physician - TRAE CHOPRA, CATRACHO [...] EDT With: Erasmo CHOPRA, Raegan Adler Where: [facility] Rashmi Invalid Interpretation Code Arthritis [facility] Office/Clini c Noteon 08-26-2022 Family Medicine Office/Clinic Note Chief Complaint establish care HPI Staff Patient is here to establish care Establish Care: History: Any previous diagnosis: History of seeing any specialist:Dr. Ramirez [facility] When was your last doctors visit: within 6 months Last provider:Dr. Jiménez Any recent labs:6 months-[facility] Health Maintenance UTD: Colonoscopy:01/10/21 PSA:11/13/20 AMW:Due Flu/Covid:UTD [...] again and would like a referral to [facility]. The patient has a history of prostate cancer and urinary retention. He notes that he is doing CIC (clean intermittent catheterizations) 3 times per day. His last PSA was approximately 1 year ago. He follows with urology, Dr. Kelley. He is agreeable to doing a PSA and BMP today. 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 He is currently following with Dr. Hanks at [facility]. The patient does not need medication refills [...] Hugh Chowdary to record this visit. ANGEL technical specialist cytogenetics and provider reviewed before signing. ANGEL: Gunjan [...] swelling Historical (more content not included)... Normal [facility] Comment on above: Result Comment: Elec tronically Signed By: Raegan March MD\.br\Date and Time Signed: 08/26/22 11:50 EST\.br\Electronically Co-Signed By: Gunjan Crum\.br\Date and Time Co-Signed: 08/26/22 11:42 EST Historical Records Officeon 08-26-2022 Historical Records Office [id number] Normal [facility] PROF 14(COMP METB)on 023 Albumin [Mass/Vol] 3.8 g/dL Normal 3.4-5.0 [facility] Comment on above: Performed By: #### C MP #### [facility] [address] [place] [address] Dr. Karina Del Valle Albumin/Globulin [Mass ratio] 1.0 {ratio} Normal [facility] Comment on above: Performed By: #### C MP #### [facility] [address] [address] [address] Karina Del Valle ALP [Catalytic activity/Vol] 103 U/L Normal 46-116 [facility] Comment on above: Performed By: #### C MP #### [facility] [address] [address] [address] Karina Del Valle ALT [Catalytic activity/Vol] 27 U/L Normal 16-63 [facility] Comment on above: Performed By: #### C MP #### [facility] [address] [address] [address] Karina Del Valle Anion gap [Moles/Vol] 13.3 mmol/L Normal [facility] Comment on above: Performed By: #### C MP #### [facility] [address] [address] [address] Karina Del Valle AST [Catalytic activity/Vol] 21 U/L Normal 15-37 [facility] Comment on above: Performed By: #### C MP #### [facility] [address] [place] [address] Dr. Karina Del Valle Bilirubin [Mass/Vol] 0.5 mg/dL Normal 0.2-1.0 [facility] Comment on above: Performed By: #### C MP #### [facility] [address] [address] [address] Karina Del Valle Calcium [Mass/Vol] 9.0 mg/dL Normal 8.5-10.1 [facility] Comment on above: Performed By: #### C MP #### [facility] [address] [address] [address] Karina Del Valle Chloride [Moles/Vol] 106 mmol/L Normal 98-107 [facility] Comment on above: Performed By: #### C MP #### [facility] [address] [address] [address] Karina Del Valle CO2 [Moles/Vol] 28.7 mmol/L Normal 21.0-32.0 [facility] Comment on above: Performed By: #### C MP #### [facility] [address] [place] [address] Dr. Karina Del Valle Creatinine [Mass/Vol] 1.07 mg/dL Normal 0.70-1.30 [facility] Comment on above: Performed By: #### C MP #### [facility] [address] [address] [address] Karina Del Valle EGFR-AF HAITIAN >60 Normal >=60 [facility] Comment on above: Performed By: #### C MP #### [facility] [address] [address] [address] Karina Del Valle EGFR-NON AF HAITIAN >60 Normal >=60 [facility] Comment on above: Performed By: #### C MP #### [facility] [address] [place] [address] Dr. Karina Del Valle Globulin (S) [Mass/Vol] 3.7 g/dL Normal [facility] Comment on above: Performed By: #### C MP #### [facility] [address] [place] [address] Dr. Karina Del Valle Glucose [Mass/Vol] 105 mg/dL Normal 74-106 [facility] Comment on above: Performed By: #### C MP #### [facility] [address] [place] [address] Dr. Karina Del Valle Potassium [Moles/Vol] 4.0 mmol/L Normal 3.5-5.1 [facility] Comment on above: Performed By: #### C MP #### [facility] [address] [place] [address] Dr. Karina Del Valle Protein [Mass/Vol] 7.5 g/dL Normal 6.4-8.2 [facility] Comment on above: Performed By: #### C MP #### [facility] [address] [place] [address] Dr. Karina Del Valle Sodium [Moles/Vol] 144 mmol/L Normal 136-145 [facility] Comment on above: Performed By: #### C MP #### [facility] [address] [place] [address] Dr. Karina Del Valle Urea nitrogen [Mass/Vol] 14.0 mg/dL Normal 7.0-18.0 [facility] Comment on above: Performed By: #### C MP #### [facility] [address] [address] [address] Karina Del Valle Urea nitrogen/Creatinin e [Mass ratio] 13.1 mg/mg Normal [facility] Comment on above: Performed By: #### C MP #### [facility] [address] [address] [address] Karina Del Valle Patient Correspondenceon Patient Correspondence [id number] 0CD:127 Normal [facility] Patient Educationon 08-27-19 Patient Education Nutrition BMI [...] height. This can be done either in [place] ([place] or metric measurements. Note that charts are available to help you find your BMI quickly and easily without having to do these calculations yourself. To calculate your BMI in [place] ([place] measurements, your health care provider will: [...] problems. ? BMI can be measured using Finnish measurements or metric measurements. ? To interpret [...] 02/18/2005 Document Revised: 05/22/2018 Document Reviewed: 04/22/2018 [employer] Patient Education ? 2019 [employer] Normal [facility] Physician Orderon 08-26-2022 Physician Order [id number]#[id number] 0CD:127 Normal [facility] CT LUNG CANCER SCREENINGon 0 08-05-2022 [...] by: KHADIJAH NICHOLSON Date: 2022-08-05 11:44 Normal [facility] CULTURE URINEon 05-21-2022 CULTURE URINE Culture Observations : MODERATE GROWTH OF MIXED SKIN JUAN. NO POTENTIAL PATHOGENS SEEN. Normal [facility] Comment on above: Performed By: #### P [facility] #### [facility] [address] [place] [address] Dr. Karina Del Valle PROF CHEM 8 (BAS METB)on Anion gap [Moles/Vol] 15.0 mmol/L Normal [facility] Comment on above: Performed By: #### P SASC #### [facility] [address] [address] [address] Karina Del Valle Calcium [Mass/Vol] 9.3 mg/dL Normal 8.5-10.1 [facility] Comment on above: Performed By: #### P SASC #### [facility] [address] [address] [address] Karina Del Valle Chloride [Moles/Vol] 111 mmol/L Critically high 98-107 [facility] Comment on above: Performed By: #### P SASC #### [facility] [address] [address] [address] Karina Del Valle CO2 [Moles/Vol] 28.2 mmol/L Normal 21.0-32.0 [facility] Comment on above: Performed By: #### P SASC #### [facility] [address] [address] [address] Karina Del Valle Creatinine [Mass/Vol] 1.10 mg/dL Normal 0.70-1.30 [facility] Comment on above: Performed By: #### P SASC #### [facility] [address] [address] [address] Karina Del Valle EGFR-AF HAITIAN >60 Normal >=60 [facility] Comment on above: Performed By: #### P SASC #### [facility] [address] [address] [address] Karina Del Valle EGFR-NON AF HAITIAN >60 Normal >=60 [facility] Comment on above: Performed By: #### P SASC #### [facility] [address] [address] [address] Karina Del Valle Glucose [Mass/Vol] 80 mg/dL Normal 74-106 [facility] Comment on above: Performed By: #### P SASC #### [facility] [address] [address] [address] Karina Del Valle Potassium [Moles/Vol] 4.2 mmol/L Normal 3.5-5.1 [facility] Comment on above: Performed By: #### P SASC #### [facility] [address] [place], [place] [address] Dr. Karina Del Valle Sodium [Moles/Vol] 150 mmol/L Critically high 136-145 [facility] Comment on above: Performed By: #### P SASC #### [facility] [address] [place], [place] [address] Dr. Karina Del Valle Urea nitrogen [Mass/Vol] 12.0 mg/dL Normal 7.0-18.0 [facility] Comment on above: Performed By: #### P SASC #### [facility] [address], [place] [address] Dr. Karina Del Valle Urea nitrogen/Creatinin e [Mass ratio] 10.9 mg/mg Normal [facility] Comment on above: Performed By: #### P SAS #### [facility] [address] [place], [place] [address] Dr. Karina Del Valle Basic metabolic 2000 panelon 01-10-2022 Anion gap [Moles/Vol] 9 mmol/L Normal 9-18 [facility] Comment on above: Order Comment: Speci men Type: BLOOD SPECIMENOrdering Facility: [facility] Address: [address] [address] Performed By: #### 2 4321-2 ####[facility] LABCLIA [id number] [place] [address] Calcium [Mass/Vol] 9.5 mg/dL Normal 8.5-10.2 [facility] Comment on above: Order Comment: Speci men Type: BLOOD SPECIMENOrdering Facility: [facility] Address: [address] [address] Performed By: #### 2 4321-2 ####[facility] LABCLIA [id number] [place] [address] Chloride [Moles/Vol] 104 mmol/L Normal 97-105 [facility] Comment on above: Order Comment: Speci men Type: BLOOD SPECIMENOrdering Facility: [facility] Address: [address] Performed By: #### 2 4321-2 ####[facility] LABCLIA [id number] [place] [address] CO2 [Moles/Vol] 27 mmol/L Normal 22-30 [facility] Comment on above: Order Comment: Speci men Type: BLOOD SPECIMENOrdering Facility: [facility] Address: [address] [place] [address] Performed By: #### 2 4321-2 ####[facility] LABCLIA [id number] [place] [address] Creatinine [Mass/Vol] 1.02 mg/dL Normal 0.73-1.22 [facility] Comment on above: Order Comment: Speci men Type: BLOOD SPECIMENOrdering Facility: [facility] Address: [address] [place] [address] Performed By: #### 2 4321-2 ####[facility] LABCLIA [id number] [place] [address] ESTIMATED GLOMERULAR FILTRATION RATE 78 mL/min/1.73m??? Normal >=60 [facility] Comment on above: Order Comment: Speci men Type: BLOOD SPECIMENOrdering Facility: [facility] Address: [address] [place] [address] Result Comment: Daysi mated Glomerular Filtration Rate [...] actual GFR. Performed By: #### 2 4321-2 ####[facility] LABCLIA [id number] [place] [address] Glucose [Mass/Vol] 110 mg/dL High 74-99 [facility] Comment on above: Order Comment: Speci men Type: BLOOD SPECIMENOrdering Facility: [facility] Address: [address] [place] [address] Result Comment: The [place] [employer] (ADA) provides guidance for cutoff [...] Standards of Medical Care in Diabetes 2016, [place] [employer]. Diabetes Care. 2016.39(Suppl 1). Performed By: #### 2 4321-2 ####[facility] LABCLIA [id number] [place] [address] Potassium [Moles/Vol] 3.9 mmol/L Normal 3.7-5.1 [facility] Comment on above: Order Comment: Speci men Type: BLOOD SPECIMENOrdering Facility: [facility] Address: [address] [address] Performed By: #### 2 4321-2 ####[facility] LABIA [id number] [place] [address] Sodium [Moles/Vol] 140 mmol/L Normal 136-144 [facility] Comment on above: Order Comment: Speci men Type: BLOOD SPECIMENOrdering Facility: [facility] Address: [address] [address] Performed By: #### 2 4321-2 ####[facility] LABCLIA [id number] [place] [address] Urea nitrogen [Mass/Vol] 13 mg/dL Normal 9-24 [facility] Comment on above: Order Comment: Speci men Type: BLOOD SPECIMENOrdering Facility: [facility] Address: [address] [address] Performed By: #### 2 4321-2 ####[facility] LABCLIA [id number] [place] [address] CBC panel Auto (Bld)on 01-10 Erythrocyte distribution width (RBC) [Ratio] 14.5 % Normal 11.5-15.0 [facility] Comment on above: Order Comment: Speci men Type: BLOOD SPECIMENOrdering Facility: [facility] Address: [address] [place] [address] Performed By: #### 5 8410-2 ####[facility] LABCLIA [id number] [place] [address] Hematocrit (Bld) [Volume fraction] 37.4 % Low 39.0-51.0 [facility] Comment on above: Order Comment: Speci men Type: BLOOD SPECIMENOrdering Facility: [facility] Address: [address] [place] [address] Performed By: #### 5 8410-2 ####[facility] LABIA [id number] [place] [address] Hemoglobin (Bld) [Mass/Vol] 11.7 g/dL Low 13.0-17.0 [facility] Comment on above: Order Comment: Speci men Type: BLOOD SPECIMENOrdering Facility: [facility] Address: [address] [place] [address] Performed By: #### 5 8410-2 ####[facility] LABCLIA [id number] [place] [address] MCH (RBC) [Entitic mass] 28.4 pg Normal 26.0-34.0 [facility] Comment on above: Order Comment: Speci men Type: BLOOD SPECIMENOrdering Facility: [facility] Address: [address] [place] [address] Performed By: #### 5 8410-2 ####[facility] LABIA [id number] [place] [address] MCHC (RBC) [Mass/Vol] 31.3 g/dL Normal 30.5-36.0 [facility] Comment on above: Order Comment: Speci men Type: BLOOD SPECIMENOrdering Facility: [facility] Address: [address] [place] [address] Performed By: #### 5 8410-2 ####[facility] LABCLIA [id number] [place] [address] MCV (RBC) [Entitic vol] 90.8 fL Normal 80.0-100.0 [facility] Comment on above: Order Comment: Speci men Type: BLOOD SPECIMENOrdering Facility: [facility] Address: [address] [place] [address] Performed By: #### 5 8410-2 ####[facility] LABCLIA [id number] [place] [address] Nucleated RBC (Bld) [#/Vol] 10*3/uL Normal <0.01 [facility] Comment on above: Order Comment: Speci men Type: BLOOD SPECIMENOrdering Facility: [facility] Address: [address] [place] [address] Performed By: #### 5 8410-2 ####[facility] LABIA [id number] [place] [address] Platelet mean volume (Bld) [Entitic vol] 9.3 fL Normal 9.0-12.7 [facility] Comment on above: Order Comment: Speci men Type: BLOOD SPECIMENOrdering Facility: [facility] Address: [address] [place], [place] [address] Performed By: #### 5 8410-2 ####[facility] LABIA [id number] [place] [address] Platelets (Bld) [#/Vol] 318 10*3/uL Normal 150-400 [facility] Comment on above: Order Comment: Speci men Type: BLOOD SPECIMENOrdering Facility: [facility] Address: [address] [place] [address] Performed By: #### 5 8410-2 ####[facility] LABCLIA [id number] [place] [address] RBC (Bld) [#/Vol] 4.12 10*6/uL Low 4.20-6.00 [facility] Comment on above: Order Comment: Speci men Type: BLOOD SPECIMENOrdering Facility: [facility] Address: [address] [place], [place] [address] Performed By: #### 5 8410-2 ####[facility] LABIA [id number] [place] [address] WBC (Bld) [#/Vol] 7.34 10*3/uL Normal 3.70-11.00 [facility] Comment on above: Order Comment: Speci men Type: BLOOD SPECIMENOrdering Facility: [facility] Address: [address] [place], [place] [address] [address] Performed By: #### 5 8410-2 ####[facility] LABIA [id number] [place] [address] BRADOVon 01-09-2022 CNOV Office Visit (UROLMN ) MIALN CAMARILLO ([id number]) 1950 M Date Time Provider Department 01/09/22 [...] continued fevers, and instructed to return to [facility] for assessment and treatment. Found to [...] tablet 50 mg daily at bedtime. - Zwolle-3 Fatty Acids, FISH OIL, (FISH OIL) 360-1,200 [...] (FLONASE) 50 mcg/actuation nasal spray Use 1 [place] in each nostril once daily. No current [...] taking anyth (more content not included)... Normal [facility] CULTURE URINEon 01-03-2022 CULTURE URINE Isolate [...] F Trimethoprim/Sulfameth oxazole <=20 S F Normal [facility] Comment on above: Performed By: #### P [facility] #### [facility] [address] [place] [address] Dr. Karina Del Valle Basic metabolic 2000 panelon 01-02-2022 Anion gap [Moles/Vol] 12 mmol/L Normal 9-18 [facility] Comment on above: Order Comment: Speci men Type: BLOOD SPECIMENOrdering Facility: [facility] Address: [address] [place] [address] Performed By: #### 2 4321-2 ####[facility] LABCLIA [id number] [place] [address] [place] Calcium [Mass/Vol] 8.4 mg/dL Low 8.5-10.2 [facility] Comment on above: Order Comment: Speci men Type: BLOOD SPECIMENOrdering Facility: [facility] Address: [address] [place] [address] Performed By: #### 2 4321-2 ####[facility] LABCLIA [id number] [address] STATES [facility] Chloride [Moles/Vol] 100 mmol/L Normal 97-105 [facility] Comment on above: Order Comment: Speci men Type: BLOOD SPECIMENOrdering Facility: [facility] Address: [address] [place] [address] Performed By: #### 2 4321-2 ####[facility] LABCLIA [id number] [address] OF [facility] CO2 [Moles/Vol] 21 mmol/L Low 22-30 [facility] Comment on above: Order Comment: Speci men Type: BLOOD SPECIMENOrdering Facility: [facility] Address: [address] [place] [address] Performed By: #### 2 4321-2 ####[facility] LABCLIA [id number] [address] [place] [facility] Creatinine [Mass/Vol] 1.56 mg/dL High 0.73-1.22 [facility] Comment on above: Order Comment: Speci men Type: BLOOD SPECIMENOrdering Facility: [facility] Address: [address] [place] [address] Performed By: #### 2 4321-2 ####[facility] LABIA [id number] [address] OF [facility] ESTIMATED GLOMERULAR FILTRATION RATE 47 mL/min/1.73m??? Low >=60 [facility] Comment on above: Order Comment: Speci men Type: BLOOD SPECIMENOrdering Facility: [facility] Address: [address] [place] [address] Result Comment: Daysi mated Glomerular Filtration Rate [...] actual GFR. Performed By: #### 2 4321-2 ####[facility] LABCLIA [id number] [place] [address] [place] Glucose [Mass/Vol] 131 mg/dL High 74-99 [facility] Comment on above: Order Comment: Speci men Type: BLOOD SPECIMENOrdering Facility: [facility] Address: [address] [place] [address] Result Comment: The [place] [employer] (ADA) provides guidance for cutoff [...] Standards of Medical Care in Diabetes 2016, [place] [employer]. Diabetes Care. 2016.39(Suppl 1). Performed By: #### 2 4321-2 ####[facility] LABIA [id number] [place] [address] [place] Potassium [Moles/Vol] 3.8 mmol/L Normal 3.7-5.1 [facility] Comment on above: Order Comment: Ilani men Type: BLOOD SPECIMENOrdering Facility: [facility] Address: [address] [place] [address] Performed By: #### 2 4321-2 ####[facility] LABIA [id number] [place] [address] [place] Sodium [Moles/Vol] 133 mmol/L Low 136-144 [facility] Comment on above: Order Comment: Radha lim Type: BLOOD SPECIMENOrdering Facility: [facility] Address: [address] [place] [address] Performed By: #### 2 4321-2 ####[facility] LABCLIA [id number] [place] [address] [place] Urea nitrogen [Mass/Vol] 23 mg/dL Normal 9-24 [facility] Comment on above: Order Comment: Speci men Type: BLOOD SPECIMENOrdering Facility: [facility] Address: [address] [place], [place] [address] Performed By: #### 2 4321-2 ####[facility] LABCLIA [id number] [place] [address] [place] Anion gap [Moles/Vol] 11 mmol/L Normal 9-18 [facility] Comment on above: Order Comment: Speci men Type: BLOOD SPECIMENOrdering Facility: [facility] Address: [address] [place], [place] [address] Performed By: #### 2 4321-2 ####[facility] LABCLIA [id number] [place] [address] [place] Calcium [Mass/Vol] 8.4 mg/dL Low 8.5-10.2 [facility] Comment on above: Order Comment: Speci men Type: BLOOD SPECIMENOrdering Facility: [facility] Address: [address] [place] [address] Performed By: #### 2 4321-2 ####[facility] LABCLIA [id number] [place] [address] [place] Chloride [Moles/Vol] 100 mmol/L Normal 97-105 [facility] Comment on above: Order Comment: Speci men Type: BLOOD SPECIMENOrdering Facility: [facility] Address: [address] [place] [address] Performed By: #### 2 4321-2 ####[facility] LABCLIA [id number] [address] [id number] [place] CO2 [Moles/Vol] 22 mmol/L Normal 22-30 [facility] Comment on above: Order Comment: Speci men Type: BLOOD SPECIMENOrdering Facility: [facility] Address: [address] [place] [address] Performed By: #### 2 4321-2 ####[facility] LABCLIA [id number] [place] [address] [place] Creatinine [Mass/Vol] 1.72 mg/dL High 0.73-1.22 [facility] Comment on above: Order Comment: Speci men Type: BLOOD SPECIMENOrdering Facility: [facility] Address: [address] [place] [address] Performed By: #### 2 4321-2 ####[facility] LABIA [id number] [address] [place] ESTIMATED GLOMERULAR FILTRATION RATE 42 mL/min/1.73m??? Low >=60 [facility] Comment on above: Order Comment: Speci men Type: BLOOD SPECIMENOrdering Facility: [facility] Address: [address] [place] [address] Result Comment: Daysi mated Glomerular Filtration Rate [...] actual GFR. Performed By: #### 2 4321-2 ####[facility] LABIA [id number] [place] [address] [place] Glucose [Mass/Vol] 115 mg/dL High 74-99 [facility] Comment on above: Order Comment: Speci men Type: BLOOD SPECIMENOrdering Facility: [facility] Address: [address] [place] [address] Result Comment: The [place] [employer] (ADA) provides guidance for cutoff [...] Standards of Medical Care in Diabetes 2016, [place] [employer]. Diabetes Care. 2016.39(Suppl 1). Performed By: #### 2 4321-2 ####[facility] LABCLIA [id number] [place] [address] [place] Potassium [Moles/Vol] 3.8 mmol/L Normal 3.7-5.1 [facility] Comment on above: Order Comment: Radha lim Type: BLOOD SPECIMENOrdering Facility: [facility] Address: [address] [place] [address] Performed By: #### 2 1-2 ####[facility] LABIA [id number] [place] [address] [place] Sodium [Moles/Vol] 133 mmol/L Low 136-144 [facility] Comment on above: Order Comment: Radha lim Type: BLOOD SPECIMENOrdering Facility: [facility] Address: [address] [place] [address] Performed By: #### 2 1-2 ####[facility] LABCLIA [id number] [place] [address] [place] Urea nitrogen [Mass/Vol] 27 mg/dL High 9-24 [facility] Comment on above: Order Comment: Radha lim Type: BLOOD SPECIMENOrdering Facility: [facility] Address: [address] [place] [address] Performed By: #### 2 4321-2 ####[facility] LABCLIA [id number] [place] [address] [place] CONSULT PROGon 01-02-2022 CONSULT PROG HNO ID: [id number] Author: David Moise MD Service: Urology Author [...] mg tablet 50 mg daily at bedtime. Zwolle-3 Fatty Acids, FISH OIL, (FISH OIL) 360-1,200 [...] (FLONASE) 50 mcg/actuation nasal spray Use 1 [place] in each nostril once daily. Current Facility-Administered [...] BMI 3 (more content not included)... Normal [facility] ED NOTEon 01-02-2022 ED NOTE HNO ID: [id number] Author: Smitha Steve RN Service: Emergency Medicine [...] fever or hematuria Home with is Normal [facility] ED NOTE HNO ID: [id number] Author: Smitha Steve RN Service: Emergency Medicine Author Type: Registered Nurse Type: ED Notes Filed: 01/02/2022 11:42 AM Note Text: Blood sugar =104. Family at the bedside Normal [facility] ED NOTE HNO ID: [id number] Author: Smitha Steve RN Service: Emergency Medicine Author Type: Registered Nurse Type: ED Notes Filed: 01/02/2022 11:15 AM Note Text: Vitals noted. Temp now 37.7, was 37.9. Pt talking on the phone. Denies pain.. Jaramillo intact and draining well. Normal [facility] ED NOTE HNO ID: [id number] Author: Smitha Steve RN Service: Emergency Medicine Author Type: Registered Nurse Type: ED Notes Filed: 01/02/2022 10:50 AM Note Text: Assumed care of the patient. Report obtained from Ignacia TYLER Normal [facility] ED NOTE HNO ID: [id number] Author: Gabriela Mayfield RN Service: Emergency Medicine Author Type: Registered Nurse Type: ED Notes Filed: 01/02/2022 4:46 AM Note Text: Pt back to bed at this time. Pt updated on POC. No further needs voiced, call light in reach Normal [facility] ED NOTE HNO ID: [id number] Author: Gabriela Mayfield RN Service: Emergency Medicine Author Type: Registered Nurse Type: ED Notes Filed: 01/02/2022 4:38 AM Note Text: Pt ambulated to bathroom with steady gait at this time. [facility] ED PROV NOTEon 01-02-2022 ED PROV NOTE HNO ID: [id number] Author: Celestino Flores APRN.PERICO Service: Emergency Medicine [...] and then left OSH to come to [facility]. Spoke with his out patient urology [...] PANEL - (more content not included)... Normal [facility] Bacteria Bld Culton 01-02-20 Bacteria identified Cx Nom (Bld) CULTURE, BLOOD: No growth 5 days Normal [facility] Comment on above: Performed By: #### 6 00-7 ####[facility] LABCLIA [id number] [address] [place] Bacteria identified Cx Nom (Bld) CULTURE, BLOOD: No growth 5 days Normal [facility] Comment on above: Performed By: #### 6 00-7 ####[facility] LABCLIA [id number] [place] [address] [place] Bacteria Ur Culton 2 Bacteria identified Cx Nom (U) CULTURE, URINE: No growth (<1,000 CFU/ml) Normal [facility] Comment on above: Performed By: #### 6 30-4 ####[facility] LABCLIA [id number] [place] [address] [place] Basic metabolic 2000 panelon 01-01-2022 Anion gap [Moles/Vol] 14 mmol/L Normal 9-18 [facility] Comment on above: Order Comment: Speci men Type: BLOOD SPECIMENOrdering Facility: [facility] Address: [address] [place] [address] Performed By: #### 2 4321-2 ####[facility] LABCLIA [id number] [place] [address] [place] Calcium [Mass/Vol] 8.5 mg/dL Normal 8.5-10.2 [facility] [place] Comment on above: Order Comment: Speci men Type: BLOOD SPECIMENOrdering Facility: [facility] Address: [address] [place], [place] [address] Performed By: #### 2 4321-2 ####[facility] LABCLIA [id number] [place] [address] [place] Chloride [Moles/Vol] 98 mmol/L Normal 97-105 [facility] Comment on above: Order Comment: Speci men Type: BLOOD SPECIMENOrdering Facility: [facility] Address: [address] [place] [address] Performed By: #### 2 4321-2 ####[facility] LABCLIA [id number] [place] [address] [place] CO2 [Moles/Vol] 21 mmol/L Low 22-30 [facility] Comment on above: Order Comment: Speci men Type: BLOOD SPECIMENOrdering Facility: [facility] Address: [address] [place] [address] Performed By: #### 2 4321-2 ####[facility] LABCLIA [id number] [place] [address] [place] Creatinine [Mass/Vol] 1.93 mg/dL High 0.73-1.22 [facility] Comment on above: Order Comment: Speci men Type: BLOOD SPECIMENOrdering Facility: [facility] Address: [address] [place] [address] Performed By: #### 2 4321-2 ####[facility] LABCLIA [id number] [address] STATES OF [facility] ESTIMATED GLOMERULAR FILTRATION RATE 36 mL/min/1.73m??? Low >=60 [facility] Comment on above: Order Comment: Speci men Type: BLOOD SPECIMENOrdering Facility: [facility] Address: [address] [place] [address] Result Comment: Daysi mated Glomerular Filtration Rate [...] actual GFR. Performed By: #### 2 4321-2 ####[facility] LABCLIA [id number] [place] [address] [place] Glucose [Mass/Vol] 103 mg/dL High 74-99 [facility] [place] Comment on above: Order Comment: Speci men Type: BLOOD SPECIMENOrdering Facility: [facility] Address: [address] [place] [address] Result Comment: The [place] [employer] (ADA) provides guidance for cutoff [...] Standards of Medical Care in Diabetes 2016, [place] [employer]. Diabetes Care. 2016.39(Suppl 1). Performed By: #### 2 4321-2 ####[facility] LABIA [id number] [place] [address] [place] Potassium [Moles/Vol] 4.0 mmol/L Normal 3.7-5.1 [facility] Comment on above: Order Comment: Speci men Type: BLOOD SPECIMENOrdering Facility: [facility] Address: [address] [place], [place] [address] Performed By: #### 2 4321-2 ####[facility] LABIA [id number] [place] [address] [place] Sodium [Moles/Vol] 133 mmol/L Low 136-144 [facility] [place] Comment on above: Order Comment: Speci men Type: BLOOD SPECIMENOrdering Facility: [facility] Address: [address] [place] [address] Performed By: #### 2 4321-2 ####[facility] LABIA [id number] [place] [address] [place] Urea nitrogen [Mass/Vol] 30 mg/dL High 9-24 [facility] Comment on above: Order Comment: Speci men Type: BLOOD SPECIMENOrdering Facility: [facility] Address: [address] [place] [address] Performed By: #### 2 4321-2 ####[facility] LABCLIA [id number] [place] [address] [place] CBC W Auto Differential pane l (Bld)on 01-01-2022 Basophils (Bld) [#/Vol] 10*3/uL Normal <0.11 [facility] Comment on above: Order Comment: Speci men Type: BLOOD SPECIMENOrdering Facility: [facility] Address: [address] [place] [address] Performed By: #### 5 7021-8 ####[facility] LABCLIA [id number] [place] [address] [place] Basophils/100 WBC (Bld) 0.2 % Normal [facility] Comment on above: Order Comment: Speci men Type: BLOOD SPECIMENOrdering Facility: [facility] Address: [address] [place] [address] Performed By: #### 5 7021-8 ####[facility] LABCLIA [id number] [place] [address] [place] Differential cell count method Nom (Bld) Auto Normal [facility] Comment on above: Order Comment: Speci men Type: BLOOD SPECIMENOrdering Facility: [facility] Address: [address] [place] [address] Performed By: #### 5 7021-8 ####[facility] LABCLIA [id number] [place] [address] [place] Eosinophils (Bld) [#/Vol] 10*3/uL Normal <0.46 [facility] Comment on above: Order Comment: Speci men Type: BLOOD SPECIMENOrdering Facility: [facility] Address: [address] [place], [place] [address] Performed By: #### 5 7021-8 ####[facility] LABCLIA [id number] [place] [address] [place] Eosinophils/100 WBC (Bld) 0.2 % Normal [facility] Comment on above: Order Comment: Speci men Type: BLOOD SPECIMENOrdering Facility: [facility] Address: [address] [place], [place] [address] Performed By: #### 5 7021-8 ####[facility] LABCLIA [id number] [address] [place] Erythrocyte distribution width (RBC) [Ratio] 15.1 % High 11.5-15.0 [facility] Comment on above: Order Comment: Speci men Type: BLOOD SPECIMENOrdering Facility: [facility] Address: [address] [place], [place] [address] Performed By: #### 5 7021-8 ####[facility] LABIA [id number] [address] STATES OF [facility] Hematocrit (Bld) [Volume fraction] 38.8 % Low 39.0-51.0 [facility] Comment on above: Order Comment: Speci men Type: BLOOD SPECIMENOrdering Facility: [facility] Address: [address] [place], [place] [address] Performed By: #### 5 7021-8 ####[facility] LABIA [id number] [address] [place] Hemoglobin (Bld) [Mass/Vol] 12.5 g/dL Low 13.0-17.0 [facility] Comment on above: Order Comment: Speci men Type: BLOOD SPECIMENOrdering Facility: [facility] Address: [address] [place], [place] [address] Performed By: #### 5 7021-8 ####[facility] LABIA [id number] [place] [address] [place] IMMATURE GRAN % 0.5 % Normal [facility] Comment on above: Order Comment: Speci men Type: BLOOD SPECIMENOrdering Facility: [facility] Address: [address] [place], [place] [address] Performed By: #### 5 7021-8 ####[facility] LABCLIA [id number] [place] [address] [place] IMMATURE GRAN ABS 0.06 k/uL Normal <0.10 [facility] Comment on above: Order Comment: Speci men Type: BLOOD SPECIMENOrdering Facility: [facility] Address: [address] [place], [place] [address] Performed By: #### 5 7021-8 ####[facility] LABIA [id number] [place] [address] [place] Lymphocytes (Bld) [#/Vol] 0.35 10*3/uL Low 1.00-4.00 [facility] Comment on above: Order Comment: Speci men Type: BLOOD SPECIMENOrdering Facility: [facility] Address: [address] [place], [place] [address] Performed By: #### 5 7021-8 ####[facility] LABIA [id number] [address] [place] Lymphocytes/100 WBC (Bld) 2.7 % Normal [facility] Comment on above: Order Comment: Speci men Type: BLOOD SPECIMENOrdering Facility: [facility] Address: [address] [place], [place] [address] Performed By: #### 5 7021-8 ####[facility] LABIA [id number] [place] [address] [place] MCH (RBC) [Entitic mass] 28.5 pg Normal 26.0-34.0 [facility] Comment on above: Order Comment: Speci men Type: BLOOD SPECIMENOrdering Facility: [facility] Address: [address] [place], [place] [address] Performed By: #### 5 7021-8 ####[facility] LABIA [id number] [place] [address] [place] MCHC (RBC) [Mass/Vol] 32.2 g/dL Normal 30.5-36.0 [facility] Comment on above: Order Comment: Speci men Type: BLOOD SPECIMENOrdering Facility: [facility] Address: [address] [place], [place] [address] Performed By: #### 5 7021-8 ####[facility] LABCLIA [id number] [place] [address] [place] MCV (RBC) [Entitic vol] 88.6 fL Normal 80.0-100.0 [facility] Comment on above: Order Comment: Speci men Type: BLOOD SPECIMENOrdering Facility: [facility] Address: [address] [place], [place] [address] Performed By: #### 5 7021-8 ####[facility] LABCLIA [id number] [place] [address] [place] Monocytes (Bld) [#/Vol] 1.16 10*3/uL High <0.87 [facility] Comment on above: Order Comment: Speci men Type: BLOOD SPECIMENOrdering Facility: [facility] Address: [address] [place], [place] [address] Performed By: #### 5 7021-8 ####[facility] LABCLIA [id number] [place] [address] [place] Monocytes/100 WBC (Bld) 9.0 % Normal [facility] Comment on above: Order Comment: Speci men Type: BLOOD SPECIMENOrdering Facility: [facility] Address: [address] [place], [place] [address] Performed By: #### 5 7021-8 ####[facility] LABCLIA [id number] [place] [address] [place] Neutrophils (Bld) [#/Vol] 11.34 10*3/uL High 1.45-7.50 [facility] Comment on above: Order Comment: Speci men Type: BLOOD SPECIMENOrdering Facility: [facility] Address: [address] [place], [place] [address] Performed By: #### 5 7021-8 ####[facility] LABCLIA [id number] [address] [place] Neutrophils/100 WBC (Bld) 87.4 % Normal [facility] Comment on above: Order Comment: Speci men Type: BLOOD SPECIMENOrdering Facility: [facility] Address: [address] [place], [place] [address] Performed By: #### 5 7021-8 ####[facility] LABCLIA [id number] [place] [address] [place] Nucleated RBC (Bld) [#/Vol] 10*3/uL Normal <0.01 [facility] Comment on above: Order Comment: Speci men Type: BLOOD SPECIMENOrdering Facility: [facility] Address: [address] [place], [place] [address] Performed By: #### 5 7021-8 ####[facility] LABCLIA [id number] [place] [address] [place] Nucleated RBC/100 WBC (Bld) [Ratio] 0.0 /100 WBC Normal [facility] Comment on above: Order Comment: Speci men Type: BLOOD SPECIMENOrdering Facility: [facility] Address: [address] [place] [address] Performed By: #### 5 7021-8 ####[facility] LABCLIA [id number] [place] [address] [place] Platelet mean volume (Bld) [Entitic vol] 10.5 fL Normal 9.0-12.7 [facility] Comment on above: Order Comment: Speci men Type: BLOOD SPECIMENOrdering Facility: [facility] Address: [address] [place] [address] Performed By: #### 5 7021-8 ####[facility] LABIA [id number] [place] [address] [place] Platelets (Bld) [#/Vol] 176 10*3/uL Normal 150-400 [facility] Comment on above: Order Comment: Speci men Type: BLOOD SPECIMENOrdering Facility: [facility] Address: [address] [place] [address] Performed By: #### 5 7021-8 ####[facility] [id number] [place] [address] [place] RBC (Bld) [#/Vol] 4.38 10*6/uL Normal 4.20-6.00 [facility] Comment on above: Order Comment: Speci men Type: BLOOD SPECIMENOrdering Facility: [facility] Address: [address] [place] [address] Performed By: #### 5 7021-8 ####[facility] [id number] [place] [address] [place] WBC (Bld) [#/Vol] 12.95 10*3/uL High 3.70-11.00 [facility] [place] Comment on above: Order Comment: Speci men Type: BLOOD SPECIMENOrdering Facility: [facility] Address: [address] [place] [address] Performed By: #### 5 7021-8 ####[facility] [id number] [place] [address] [place] CNPKirstin 01-01-2022 CNPN Telephone (URONATALIEN) MILAN CAMARILLO ([id number]) 1950 M Date Time Provider Department 01/01/22 [...] I recommended that he come to the [facility] today. He expressed understanding and agreement [...] Date Reviewed: 12/25/2021 Reviewed by: Vannesa Crump APRN.NURSE TECH - Fully Assessed Reason for Visit: Patient [...] tablet 50 mg daily at bedtime. - Zwolle-3 Fatty Acids, FISH OIL, (FISH OIL) 360-1,200 [...] (FLONASE) 50 mcg/actuation nasal spray Use 1 [place] in each nostril once daily. Problem List [...] Encounter Status:Closed by RYAN OKEEFE on 01/01/22 [facility]-2022 CONSULT HNO ID: [id number] Author: Marilee Robison MD Service: Urology Author [...] had to self-cath daily. He presented to [facility] with these symptoms. There they gave [...] mg tablet 50 mg daily at bedtime. Zwolle-3 Fatty Acids, FISH OIL, (FISH OIL) 360-1,200 mg cap Take 1 capsule by mouth. furosemide (LASIX) 20 mg tablet Take by mouth twice daily. imipramine HCl (TOFRANIL) 50 mg tablet Take by mouth twice daily. rOPINIRole (REQUIP) 0.5 mg tablet Take 0.5 mg by mouth twice daily. terazosin (HYTRIN) 2 mg capsule Take by mouth (more content not included)... Normal [facility] CULTURE BLOODon 01-01-2022 Microscopic examination of blood, culture Culture Observations: NO GROWTH AT 5 DAYS. Normal [facility] Comment on above: Performed By: #### B LDCX2 #### [facility] [address] [place] [address] Dr. Karina Del Valle Microscopic examination of blood, culture Culture Observations: NO GROWTH AT 5 DAYS. Normal [facility] Comment on above: Performed By: #### P [facility] #### [facility] [address] [place] [address] Dr. Karina Del Valle Comprehensive metabolic 2000 panelon 01-01-2022 Albumin [Mass/Vol] 3.6 g/dL Low 3.9-4.9 [facility] Comment on above: Order Comment: Speci men Type: BLOOD SPECIMENOrdering Facility: [facility] Address: [address] [place] [address] Performed By: #### 1 9123-9, 45885-3 ####[facility] LABCLIA [id number] [place] [address] [place] ALP [Catalytic activity/Vol] 83 U/L Normal 38-113 [facility] Comment on above: Order Comment: Speci men Type: BLOOD SPECIMENOrdering Facility: [facility] Address: [address] [place], [place] [address] Performed By: #### 1 9123-9, 93245-8 ####[facility] LABCLIA [id number] [address] [place] ALT [Catalytic activity/Vol] 12 U/L Normal 10-54 [facility] Comment on above: Order Comment: Speci men Type: BLOOD SPECIMENOrdering Facility: [facility] Address: [address] [place], [place] [address] Performed By: #### 1 23-9, 52571-4 ####[facility] LABCLIA [id number] [place] [address] [place] Anion gap [Moles/Vol] 17 mmol/L Normal 9-18 [facility] Comment on above: Order Comment: Speci men Type: BLOOD SPECIMENOrdering Facility: [facility] Address: [address] [place], [place] [address] Performed By: #### 1 23-9, 38269-5 ####[facility] LABCLIA [id number] [address] [place] AST [Catalytic activity/Vol] 16 U/L Normal 14-40 [facility] Comment on above: Order Comment: Speci men Type: BLOOD SPECIMENOrdering Facility: [facility] Address: [address] [place], [place] [address] Performed By: #### 1 239, 71794-3 ####[facility] LABCLIA [id number] [place] [address] [place] Bilirubin [Mass/Vol] 1.1 mg/dL Normal 0.2-1.3 [facility] Comment on above: Order Comment: Speci men Type: BLOOD SPECIMENOrdering Facility: [facility] Address: [address] [place], [place] [address] Performed By: #### 1 23-9, 15424-6 ####[facility] LABCLIA [id number] [place] [address] [place] Calcium [Mass/Vol] 8.8 mg/dL Normal 8.5-10.2 [facility] Comment on above: Order Comment: Speci men Type: BLOOD SPECIMENOrdering Facility: [facility] Address: [address] [place] [address] Performed By: #### 1 9123-9, 56715-0 ####[facility] LABCLIA [id number] [facility] [place] [address] [place] Chloride [Moles/Vol] 96 mmol/L Low 97-105 [facility] Comment on above: Order Comment: Speci men Type: BLOOD SPECIMENOrdering Facility: [facility] Address: [address] [place] [address] Performed By: #### 1 9123-9, 84488-3 ####[facility] LABCLIA [id number] [place] [address] [place] CO2 [Moles/Vol] 21 mmol/L Low 22-30 [facility] Comment on above: Order Comment: Speci men Type: BLOOD SPECIMENOrdering Facility: [facility] Address: [address] [place], [place] [address] Performed By: #### 1 9123-9, 87819-9 ####[facility] LABCLIA [id number] [place] [address] [place] Creatinine [Mass/Vol] 2.13 mg/dL High 0.73-1.22 [facility] Comment on above: Order Comment: Speci men Type: BLOOD SPECIMENOrdering Facility: [facility] Address: [address] [place], [place] [address] Performed By: #### 1 9123-9, 35385-2 ####[facility] LABCLIA [id number] [place] [address] [place] ESTIMATED GLOMERULAR FILTRATION RATE 32 mL/min/1.73m??? Low >=60 [facility] Comment on above: Order Comment: Radha lim Type: BLOOD SPECIMENOrdering Facility: [facility] Address: [address] [place] [address] Result Comment: Daysi mated Glomerular Filtration Rate [...] actual GFR. Performed By: #### 1 9123-9, 55548-8 ####[facility] LABIA [id number] [place] [address] [place] Glucose [Mass/Vol] 101 mg/dL High 74-99 [facility] Comment on above: Order Comment: Radha lim Type: BLOOD SPECIMENOrdering Facility: [facility] Address: [address] Result Comment: The [place] [employer] (ADA) provides guidance for cutoff [...] Standards of Medical Care in Diabetes 2016, [place] [employer]. Diabetes Care. 2016.39(Suppl 1). Performed By: #### 1 9123-9, 28868-8 ####[facility] LABIA [id number] [place] [address] [place] Potassium [Moles/Vol] 3.9 mmol/L Normal 3.7-5.1 [facility] Comment on above: Order Comment: Speci men Type: BLOOD SPECIMENOrdering Facility: [facility] Address: [address] [place] [address] Performed By: #### 1 9123-9, 31106-2 ####[facility] LABCLIA [id number] [place] [address] [place] Protein [Mass/Vol] 7.3 g/dL Normal 6.3-8.0 [facility] Comment on above: Order Comment: Speci men Type: BLOOD SPECIMENOrdering Facility: [facility] Address: [address] [place] [address] Performed By: #### 1 9123-9, 68378-6 ####[facility] LABIA [id number] [place] [address] [place] Sodium [Moles/Vol] 134 mmol/L Low 136-144 [facility] Comment on above: Order Comment: Speci men Type: BLOOD SPECIMENOrdering Facility: [facility] Address: [address] [place] [address] Performed By: #### 1 9123-9, 77761-9 ####[facility] LABIA [id number] [place] [address] [place] Urea nitrogen [Mass/Vol] 33 mg/dL High 9-24 [facility] Comment on above: Order Comment: Speci men Type: BLOOD SPECIMENOrdering Facility: [facility] Address: [address] [place] [address] Performed By: #### 1 9123-9, 78763-8 ####[facility] LABIA [id number] [place] [address] [place] Covid-19 PCR ([facility])on 12-21 SARS-CoV-2 (COVID-19) RNA LYNNETTE+probe Ql (Unsp spec) Not detected Normal NOT DETECTED [facility] Comment on above: Result Comment: When [...] for this test is supported by the Fire Control Technician B of Health and Human Service's declaration that [...] longer be used). Performed By: #### C VDTB #### [facility] [address] [place] [address] Dr. Karina Del Valle ED NOTEon 01-01-2022 ED NOTE HNO ID: [id number] Author: Gabriela Mayfield RN Service: Emergency Medicine Author Type: Registered Nurse Type: ED Notes Filed: 01/01/2022 9:31 PM Note Text: Pt ambulated to bathroom with steady gait per pt request. Normal [facility] ED NOTE HNO ID: [id number] Author: Gabriela Mayfield RN Service: Emergency Medicine Author Type: Registered Nurse Type: ED Notes Filed: 01/01/2022 8:46 PM Note Text: Pt provided cold wash cloth and ice pack for comfort at this time. Pt updated on POC. No further needs voiced, call light in reach. Normal [facility] ED NOTE HNO ID: [id number] Author: Perla Jacinto LPN Service: Emergency Medicine Author Type: LICENSED NURSE Type: ED Notes Filed: 01/01/2022 6:09 PM Note Text: Patient resting in bed, monitoring oxygen level and heart rate, noted HR-89, Oxygen level 95% RA at time. No c/o respiratory distress noted or voiced T-102.7 and patient encourage to increase fluids. Tylenol given . RN made aware. Perla Jacinto LPN Normal [facility] ED NOTE HNO ID: [id number] Author: Ignacia Goncalves RN Service: Nursing Author [...] rail up -Call light within reach Normal [facility] ED PROV NOTEon 01-01-2022 ED PROV NOTE HNO ID: [id number] Author: Jose D Penn MD Service: Emergency [...] nursing note reviewed. Exam conducted with a data security administrator present. Constitutional: General: He is not [...] Skin is (more content not included)... Normal [facility] URINE PROFILEon 2 Bilirubin Ql (U) Negative Normal NEGATIVE [facility] Comment on above: Performed By: #### U MICRO, ERUR #### [facility] [address] [place] [address] Dr. Karina Del Valle Clarity (U) CLEAR Normal CLEAR [facility] Comment on above: Performed By: #### U MICRO, ERUR #### [facility] [address] [address] [address] Karina Del Valle Color (U) YELLOW Normal YELLOW [facility] Comment on above: Performed By: #### U MICRO, ERUR #### [facility] [address] [place] [address] Dr. Karina DURAN A micrscopic examination will be performed if indicated. Normal [facility] Comment on above: Performed By: #### U MICRO, ERUR #### [facility] [address] [place] [address] Dr. Karina Del Valle Glucose Ql (U) Negative Normal NEGATIVE [facility] Comment on above: Performed By: #### U MICRO, ERUR #### [facility] [address] [address] [address] Karina Del Valle Hemoglobin Ql (U) SMALL Abnormal NEGATIVE [facility] Comment on above: Performed By: #### U MICRO, ERUR #### [facility] [address] [address] [address] Karina Del Valle Ketones Ql (U) Negative Normal NEGATIVE [facility] Comment on above: Performed By: #### U MICRO, ERUR #### [facility] [address] [address] [address] Karina Del Valle LEUKOCYTES LARGE Abnormal NEGATIVE [facility] Comment on above: Performed By: #### U MICRO, ERUR #### [facility] [address] [place] [address] Dr. Karina Del Valle Nitrite Ql (U) Negative Normal NEGATIVE [facility] Comment on above: Performed By: #### U MICRO, ERUR #### [facility] [address] [place] [address] Dr. Karina Del Valle pH (U) 6.0 [pH] Normal 5-9 [facility] Comment on above: Performed By: #### U MICRO, ERUR #### [facility] [address] [place] [address] Dr. Karina Del Valle Protein (U) [Mass/Vol] 100 mg/dL Abnormal NEGATIVE/ TRACE [facility] Comment on above: Performed By: #### U MICRO, ERUR #### [facility] [address] [place] [address] Dr. Karina Del Valle SPEC GRAVITY 1.020 Normal 1.005-<=1.025 [facility] Comment on above: Performed By: #### U MICRO, ERUR #### [facility] [address] [place] [address] Dr. Karina Del Valle UR MICRO IND INDICATED Normal [facility] Comment on above: Performed By: #### U MICRO, ERUR #### [facility] [address] [place] [address] Dr. Karina Del Valle Urobilinogen Qn (U) 1.0 {Yamileth'U}/dL Normal 0.2 - 1.0 [facility] Comment on above: Performed By: #### U MICRO, ERUR #### [facility] [address] [place] [address] Dr. Karina Del Valle LACTATE/LACTIC ACIDon 2021 Lactate [Moles/Vol] 1.9 mmol/L Normal 0.4-1.9 [facility] Comment on above: Performed By: #### L ACT #### [facility] [address] [place] [address] Dr. Karina Del Valle Lactate [Moles/Vol] 2.2 mmol/L Critically high 0.4-1.9 [facility] Comment on above: Performed By: #### P SASC #### [facility] [address] [place] [address] Dr. Karina Del Valle Magnesium SerPl-mCncon 01-01 Magnesium [Mass/Vol] 1.9 mg/dL Normal 1.7-2.3 [facility] Comment on above: Order Comment: Speci men Type: BLOOD SPECIMENOrdering Facility: [facility] Address: [address] [place] [address] Performed By: #### 1 9123-9, 92524-7 ####[facility] LABCLIA [id number] [address] [place] SARS-CoV-2 RNA Resp Ql LYNNETTE+p robeon 01-01-2022 SARS-CoV-2 (COVID-19) RNA LYNNETTE+probe Ql (Resp) COVID 19 RESULT: SARS-CoV-2 (Agent of COVID-19) Not Detected by RT-PCR or equivalent method. This test has been authorized by FDA under an Emergency Use Authorization (EUA). Normal [facility] Comment on above: Performed By: #### 9 4500-6 ####[facility] LABCLIA [id number] [place] [address] [place] URINE MICROSCOPIC ONLYon BACTERIA MODERATE Abnormal NONE SEEN [facility] Comment on above: Performed By: #### U MICRO, ERUR #### [facility] [address] [place] [address] Dr. Karina Del Valle Bacteria identified Cx Nom (U) INDICATED Normal [facility] Comment on above: Performed By: #### U MICRO, ERUR #### [facility] [address] [place] [address] Dr. Karina Del Valle CAST SEEN Abnormal NONE SEEN [facility] Comment on above: Performed By: #### U MICRO, ERUR #### [facility] [address] [address] [address] Karina Del Valle Crystals LM Nom (Urine sed) NONE SEEN Normal NONE SEEN [facility] Comment on above: Performed By: #### U MICRO, ERUR #### [facility] [address] [place] [address] Dr. Karina Del Valle Epithelial cells LM Ql (Urine sed) RARE Normal NONE SEEN /RARE [facility] Comment on above: Performed By: #### U MICRO, ERUR #### [facility] [address] [place] [address] Dr. Karina Del Valle MUCOUS NONE SEEN Normal NONE SEEN [facility] Comment on above: Performed By: #### U MICRO, ERUR #### [facility] [address] [place] [address] Dr. Karina Del Valle RBC 0-2 Normal 0-2 [facility] Comment on above: Performed By: #### U MICRO, ERUR #### [facility] [address] [place] [address] Dr. Karina Del Valle WBC (U) [#/Vol] /uL Abnormal NONE SEEN [facility] Comment on above: Performed By: #### U MICRO, ERUR #### [facility] [address] [place] [address] Dr. Karina Del Valle Urinalysis complete panel (U )on 01-01-2022 Bacteria LM.HPF (Urine sed) [#/Area] Many Abnormal None Seen [facility] Comment on above: Order Comment: Speci men Type: URINE SPECIMENOrdering Facility: [facility] Address: [address] Performed By: #### 2 4356-8 ####[facility] LABCLIA [id number] [place] [address] [place] Bilirubin Ql (U) Negative Normal Negative [facility] Comment on above: Order Comment: Speci men Type: URINE SPECIMENOrdering Facility: [facility] Address: [address] [place], [place] [address] Performed By: #### 2 4356-8 ####[facility] LABCLIA [id number] [place] [address] [place] Clarity (Unsp spec) Turbid Abnormal Clear [facility] Comment on above: Order Comment: Speci men Type: URINE SPECIMENOrdering Facility: [facility] Address: [address] [place], [place] [address] Performed By: #### 2 4356-8 ####[facility] LABCLIA [id number] [place] [address] [place] Color (U) Justina Abnormal Yellow [facility] Comment on above: Order Comment: Speci men Type: URINE SPECIMENOrdering Facility: [facility] Address: [address] [place], [place] [address] Performed By: #### 2 4356-8 ####[facility] LABCLIA [id number] [place] [address] [place] Glucose Test strip (U) [Mass/Vol] Negative Normal Negative [facility] Comment on above: Order Comment: Speci men Type: URINE SPECIMENOrdering Facility: [facility] Address: [address] [place] [address] Performed By: #### 2 4356-8 ####[facility] LABCLIA [id number] [place] [address] [place] Hemoglobin Ql (U) 1+ Abnormal Negative [facility] Comment on above: Order Comment: Speci men Type: URINE SPECIMENOrdering Facility: [facility] Address: [address] [place], [place] [address] Performed By: #### 2 4356-8 ####[facility] LABCLIA [id number] [place] [address] [place] Hyaline casts (Urine sed) [#/Area] /[LPF] Abnormal 0 /LPF [facility] Comment on above: Order Comment: Speci men Type: URINE SPECIMENOrdering Facility: [facility] Address: [address] [place], [place] [address] Performed By: #### 2 4356-8 ####[facility] LABCLIA [id number] [place] [address] [place] Ketones Ql (U) Negative Normal Negative [facility] Comment on above: Order Comment: Speci men Type: URINE SPECIMENOrdering Facility: [facility] Address: [address] [place], [place] [address] Performed By: #### 2 4356-8 ####[facility] LABCLIA [id number] [place] [address] [place] Leukocyte esterase Test strip Ql (U) 3+ Abnormal Negative [facility] Comment on above: Order Comment: Speci men Type: URINE SPECIMENOrdering Facility: [facility] Address: [address] [place] [address] Performed By: #### 2 4356-8 ####[facility] LABCLIA [id number] [place] [address] [place] Nitrite Ql (U) Negative Normal Negative [facility] Comment on above: Order Comment: Speci men Type: URINE SPECIMENOrdering Facility: [facility] Address: [address] [place], [place] [address] Performed By: #### 2 4356-8 ####[facility] LABCLIA [id number] [place] [address] [place] pH (U) 5.0 [pH] Normal 5.0-8.0 [facility] Comment on above: Order Comment: Speci men Type: URINE SPECIMENOrdering Facility: [facility] Address: [address] [place] [address] Performed By: #### 2 4356-8 ####[facility] LABIA [id number] [place] [address] [place] Protein (U) [Mass/Vol] 2+ Abnormal Negative [facility] Comment on above: Order Comment: Speci men Type: URINE SPECIMENOrdering Facility: [facility] Address: [address] [place] [address] Performed By: #### 2 4356-8 ####[facility] LABIA [id number] [place] [address] [place] RBC LM.HPF (Urine sed) [#/Area] 6-10 /HPF Abnormal 0-3 /HPF [facility] Comment on above: Order Comment: Speci men Type: URINE SPECIMENOrdering Facility: [facility] Address: [address] [place] [address] Performed By: #### 2 4356-8 ####[facility] LABIA [id number] [place] [address] [place] Specific gravity (U) [Rel density] 1.018 Normal 1.005-1.030 [facility] Comment on above: Order Comment: Speci men Type: URINE SPECIMENOrdering Facility: [facility] Address: [address] [place], [place] [address] Performed By: #### 2 4356-8 ####[facility] LABIA [id number] [place] [address] [place] Urobilinogen Ql (U) 2+ Abnormal Negative [facility] Comment on above: Order Comment: Speci men Type: URINE SPECIMENOrdering Facility: [facility] Address: [address] [place] [address] Performed By: #### 2 4356-8 ####[facility] LABCLIA [id number] [place] [address] [place] WBC LM.HPF (Urine sed) [#/Area] /[HPF] Abnormal 0-5 /HPF [facility] Comment on above: Order Comment: Speci men Type: URINE SPECIMENOrdering Facility: [facility] Address: [address] [place] [address] Performed By: #### 2 4356-8 ####[facility] LABCLIA [id number] [place] [address] [place] XR CHEST 1 [...] SANGEETHA VEGA Date: 2021-12-31 23:08 Normal [facility] CBC W MANUAL DIFFon 01-01-20 22 ATYPICAL LYMPH # Normal [facility] Comment on above: Performed By: #### C RAHUL #### [facility] [address] [address] [address] Karina Del Valle ATYPICAL LYMPH % Normal [facility] Comment on above: Performed By: #### C RAHUL #### [facility] [address] [address] [address] Karina Del Valle BAND # 0.1 103/ul Normal 0.0-0.3 [facility] Comment on above: Performed By: #### C RAHUL #### [facility] [address] [place] [address] Dr. Karina Del Valle BAND % 1 % Normal 0-5 [facility] Comment on above: Performed By: #### C BCHENRI #### [facility] [address] [place] [address] Dr. Karina Del Valle BASOM # 0.00 103/ul Normal 0.00-0.10 [facility] Comment on above: Performed By: #### C BCMAN #### [facility] [address] [place] [address] Dr. Karina Del Valle BASOM % 0.0 % Critically low 0.2-2.0 [facility] Comment on above: Performed By: #### C BCHENRI #### [facility] [address] [place] [address] Dr. Karina Del Valle BLAST # Normal [facility] Comment on above: Performed By: #### C RAHUL #### [facility] [address] [place] [address] Dr. Karina Del Valle BLAST % Normal [facility] Comment on above: Performed By: #### C RAHUL #### [facility] [address] [place] [address] Dr. Karina Del Valle CORRECTED WBC Normal 4.0-11.0 [facility] Comment on above: Performed By: #### C BCHENRI #### [facility] [address] [place] [address] Dr. Karina Del Valle EOS # 0.00 103/ul Normal 0.00-0.70 [facility] Comment on above: Performed By: #### C BCHENRI #### [facility] [address] [place] [address] Dr. Karina Del Valle EOS% 0.0 % Critically low 0.9-7.0 [facility] Comment on above: Performed By: #### C BCHENRI #### [facility] [address] [place] [address] Dr. Karina Del Valle HCT 37.4 % Critically low 42.0-54.0 [facility] Comment on above: Performed By: #### C BCHENRI #### [facility] [address] [place] [address] Dr. Karina Del Valle HGB 12.4 g/dl Critically low 14.0-18.0 [facility] Comment on above: Performed By: #### C RAHUL #### [facility] [address] [place] [address] Dr. Karina Del Valle LYMPHM # 0.83 103/ul Critically low 1.20-3.80 [facility] Comment on above: Performed By: #### C RAHUL #### [facility] [address] [place] [address] Dr. Karina Del Valle LYMPHM% 6.0 % Critically low 20.5-60.0 [facility] Comment on above: Performed By: #### C RAHUL #### [facility] [address] [place] [address] Dr. Karina Del Valle MCH 29.1 pg Normal 25.9-34.0 [facility] Comment on above: Performed By: #### C RAHUL #### [facility] [address] [place] [address] Dr. Karina Del Valle MCHC 33.2 g/dl Normal 29.9-35.2 [facility] Comment on above: Performed By: #### C RAHUL #### [facility] [address] [place] [address] Dr. Karina Del Valle MCV 87.8 fL Normal 80.0-94.0 [facility] Comment on above: Performed By: #### C RAHUL #### [facility] [address] [place] [address] Dr. Karina Del Valle METAMYELOCYTE # Normal [facility] Comment on above: Performed By: #### C RAHUL #### [facility] [address] [place] [address] Dr. Karina Del Valle METAMYELOCYTE % Normal [facility] Comment on above: Performed By: #### C RAHUL #### [facility] [address] [place] [address] Dr. Karina Del Valle MONOM# 0.83 103/ul Critically high 0.30-0.80 [facility] Comment on above: Performed By: #### C RAHUL #### [facility] [address] [place] [address] Dr. Karina Del Valle MONOM% 6.0 % Normal 1.7-12.0 [facility] Comment on above: Performed By: #### C RAHUL #### [facility] [address] [place] [address] Dr. Karina Del Valle MPV 10.6 fL Normal 9.5-13.5 [facility] Comment on above: Performed By: #### C RAHUL #### [facility] [address] [place] [address] Dr. Karina Del Valle MYELOCYTE # Normal [facility] Comment on above: Performed By: #### C RAHUL #### [facility] [address] [place] [address] Dr. Karina Del Valle MYELOCYTE % Normal [facility] Comment on above: Performed By: #### Mia KAY #### [facility] [address] [place] [address] Dr. Karina Del Valle NRBC Normal [facility] Comment on above: Performed By: #### C RAHUL #### [facility] [address] [place] [address] Dr. Karina Del Valle PLT 189 103/ul Normal 150-450 [facility] Comment on above: Performed By: #### C RAHUL #### [facility] [address] [place] [address] Dr. Karina Del Valle RBC 4.26 106/ul Critically low 4.70-6.10 [facility] Comment on above: Performed By: #### C RAHUL #### [facility] [address] [place] [address] Dr. Karina Del Valle RDW 15.0 % Normal 11.0-15.0 [facility] Comment on above: Performed By: #### C RAHUL #### [facility] [address] [place] [address] Dr. Karina Del Valle SEG # 12.01 103/ul Critically high 1.40-6.50 [facility] Comment on above: Performed By: #### C RAHUL #### [facility] [address] [place], [place] [address] Dr. Karina Del Valle SEG % 87.0 % Critically high 43.0-75.0 [facility] Comment on above: Performed By: #### Mia KAY #### [facility] [address] [place], [place] [address] Dr. Karina Del Valle WBC 13.8 103/ul Critically high 4.0-11.0 [facility] Comment on above: Performed By: #### Mia KAY #### [facility] [address] [place], [place] [address] Dr. Karina Del Valle [facility] 12-31-2021 CNPN Telephone (UROLMN) MILAN CAMARILLO ([id number]) 1950 M Date Time Provider Department 12/31/21 RUBÉN CRUZ During your visit today, we recorded the following information about you: Rubén Cruz APRN.NURSE TECH 12/31/2021 12:45 PM Signed ----- Message from [...] UTI based on the smell. Rubén Cruz APRN.NURSE TECH 12/31/2021 12:48 PM Signed Milan Camarillo had TURP with Dr. Ram on 12/21/2021, then postop visit with Vannesa on 12/25/2021 for Jaramillo removal. Finished 7 day course of Macrobid on 12/28/2021. Attempted to call Milan Camarillo to discuss symptoms. Left voicemail, requesting call back at [phone]. Rubén Cruz APRN.PERICO Cruz APRN.PERICO 01/01/2022 6:31 PM Addendum ----- Message from Sarahy Morris Adm sent at 12/31/2021 4:39 PM EDT ----- Regarding: FW: Post op fever / Changed phone number Contact: Rubén Cruz APRN.CNP 01/01/2022 6:[address] Okeefe talked with Milan Camarillo today and instructed him to come to ER. He is being admitted for suspected urosepsis. Dr. Ram is aware. Rubén Cruz APRN.PERICO Allergies As of Date: 12/31/2021 Noted Allergy Reaction GLUCOSAMINE 10/10/2017 10 - Anaphylaxis 16 - Unknown IV DYE (IODINATED CONTRAST MEDIA) 05/22/2016 4 - Hives SHELLFISH CONTAINING PRODUCTS 05/22/2016 4 - Hives NIACIN 05/22/2016 4 - Hives 2 - Rash Date Reviewed: 12/25/2021 Reviewed by: Vannesa Crump APRN.NURSE TECH - Fully Assessed Reason for Visit: Surgical [...] tablet 50 mg daily at bedtime. - Zwolle-3 Fatty Acids, FISH OIL, (FISH OIL) 360-1,200 [...] (FLONASE) 50 mcg/actuation nasal spray Use 1 [place] in each nostril once daily. Facility-Administered Medications [...] Status:Closed by RUBÉN CRUZ on 01/01/22 Normal [facility] PROF 14(COMP METB)on 022 Albumin [Mass/Vol] 2.8 g/dL Critically low 3.4-5.0 [facility] Comment on above: Performed By: #### C MP #### [facility] [address] [place] [address] Dr. Karina Del Valle Albumin/Globulin [Mass ratio] 0.7 {ratio} Normal [facility] Comment on above: Performed By: #### C MP #### [facility] [address] [place] [address] Dr. Karina Del Valle ALP [Catalytic activity/Vol] 77 U/L Normal 46-116 [facility] Comment on above: Performed By: #### C MP #### [facility] [address] [place] [address] Dr. Karina Del Valle ALT [Catalytic activity/Vol] 16 U/L Normal 16-63 [facility] Comment on above: Performed By: #### C MP #### [facility] [address] [place] [address] Dr. Karina Del Valle Anion gap [Moles/Vol] 15.3 mmol/L Normal [facility] Comment on above: Performed By: #### C MP #### [facility] [address] [place] [address] Dr. Karina Del Valle AST [Catalytic activity/Vol] 12 U/L Critically low 15-37 [facility] Comment on above: Performed By: #### C MP #### [facility] [address] [address] [address] Karina Del Valle Bilirubin [Mass/Vol] 0.9 mg/dL Normal 0.2-1.0 [facility] Comment on above: Performed By: #### C MP #### [facility] [address] [address] [address] Karina Del Valle Calcium [Mass/Vol] 8.7 mg/dL Normal 8.5-10.1 [facility] Comment on above: Performed By: #### C MP #### [facility] [address] [address] [address] Karina Del Valle Chloride [Moles/Vol] 100 mmol/L Normal 98-107 [facility] Comment on above: Performed By: #### C MP #### [facility] [address] [address] [address] Karina Del Valle CO2 [Moles/Vol] 20.7 mmol/L Critically low 21.0-32.0 [facility] Comment on above: Performed By: #### C MP #### [facility] [address] [address] [address] Karina Del Valle Creatinine [Mass/Vol] 1.71 mg/dL Critically high 0.70-1.30 [facility] Comment on above: Performed By: #### C MP #### [facility] [address] [address] [address] Karina Del Valle EGFR-AF HAITIAN 48 mL/min/1.73m2 Critically low >=60 [facility] Comment on above: Performed By: #### C MP #### [facility] [address] [address] [address] Karina Del Valle EGFR-NON AF HAITIAN 40 mL/min/1.73m2 Critically low >=60 [facility] Comment on above: Performed By: #### C MP #### [facility] [address] [address] [address] Karina Del Valle Globulin (S) [Mass/Vol] 4.3 g/dL Normal [facility] Comment on above: Performed By: #### C MP #### [facility] [address] [address] [address] Karina Del Valle Glucose [Mass/Vol] 161 mg/dL Critically high 74-106 [facility] Comment on above: Performed By: #### C MP #### [facility] [address] [address] [address] Karina Del Valle Potassium [Moles/Vol] 3.0 mmol/L Critically low 3.5-5.1 [facility] Comment on above: Performed By: #### C MP #### [facility] [address] [address] [address] Karina Del Valle Protein [Mass/Vol] 7.1 g/dL Normal 6.4-8.2 [facility] Comment on above: Performed By: #### C MP #### [facility] [address] [address] [address] Karina Del Valle Sodium [Moles/Vol] 133 mmol/L Critically low 136-145 [facility] Comment on above: Performed By: #### C MP #### [facility] [address] [address] [address] Karina Del Valle Urea nitrogen [Mass/Vol] 26.0 mg/dL Critically high 7.0-18.0 [facility] Comment on above: Performed By: #### C MP #### [facility] [address] [address] [address] Karina Del Valle Urea nitrogen/Creatinin e [Mass ratio] 15.2 mg/mg Normal [facility] Comment on above: Performed By: #### C MP #### [facility] [address] [address] [address] Kraina Irby 12-25-2021 KURT Office Visit ([facility] ) RABIA,MILAN Bennie ([id number]) 1950 M Date Time Provider Department 12/25/21 11:30 AM VANNESA CRUMP UROLCC During your visit today, we recorded the following information about you: Pulse Blood pressure Weight 57/minute 124/61 123 kg Vannesa Crump APRN.NURSE TECH 12/25/2021 11:53 AM Signed REASON FOR VISIT: [...] tablet 50 mg daily at bedtime. - Zwolle-3 Fatty Acids, FISH OIL, (FISH OIL) 360-1,200 [...] (FLONASE) 50 mcg/actuation nasal spray Use 1 [place] in each nostril once daily. No current [...] to call (more content not included)... Normal [facility] ANES POSTPROC EVALon 022 ANES POSTPROC EVAL HNO ID: [id number] Author: Hugo Gerard MD Service: ? Author Type: Anesthesiologist Type: Anesthesia Postprocedure Evaluation Filed: 12/21/2021 9:21 AM Note Text: POST ANESTHESIA EVALUATION NOTE : 1950 Procedure Summary Date: 12/21/21 Room / Location: [address] [facility] Anesthesia Start: 724 Anesthesia Stop: 912 Procedure: TURP COMPLETE (N/A Prostate) Diagnosis: BPH with obstruction/lower urinary tract symptoms Surgeons: Jesus Ram MD Responsible Provider: Hugo Gerard MD Anesthesia Type: general ASA Status: 3 Anesthesia Type: general Airway Type: LMA Last Vitals Vitals Value Taken Time BP 138/64 12/21/21 0915 Temp 12/21/21 0921 Pulse 76 07/01/22 0919 Resp 23 12/21/21918 SpO2 98 % 12/21/21918 Vitals shown include [...] with this procedure. Documented by Robyn Urbina APRN.LABORER WHARF 12/21/2021 1:06 PM EDT SIGNATURE: Hugo Gerard MD PATIENT NAME: Milan Leen DATE: December 21, 2021 TIME: 9:21 AM CSN: [id number] Normal [facility] ANES PRE-OPon 12-21-2021 ANES PRE-OP HNO ID: [id number] Author: Hugo Gerard MD Service: ? Author Type: Anesthesiologist Type: Anesthesia Preprocedure Evaluation Filed: 12/21/2021 9:00 AM Note Text: ANESTHESIOLOGY DAY OF SURGERY NOTE : 1950 Procedure Information Anesthesia Start Date/Time: 12/21/21724 Procedure: TURP COMPLETE (N/A Prostate) Location: [place] [address] / [facility] Surgeons: Jesus Ram MD Estimated body mass [...] and consent discussed: yes. Patient / Responsible Libertarian agrees to proceed: yes Patient / Surrogate [...] tablet 50 mg daily at bedtime. - Zwolle-3 Fatty Acids, FISH OIL, (FISH OIL) 360-1,200 [...] (FLONASE) 50 mcg/actuation nasal spray Use 1 [place] in each nostril once daily. - oxybutynin [...] within 48 hours of Surgery/Procedure. SIGNATURE: Hugo Gearrd MD PATIENT NAME: Milan Camarillo DATE: December 21, 2021 TIME: 8:59 AM CSN: [id number] [facility] BRIEF OP NOTon 12-21-2021 BRIEF OP NOT HNO ID: [id number] Author: David Moise MD Service: Urology Author Type: Resident Type: Brief Op Note Filed: 12/21/2021 8:51 AM Note Text: UROLOGY SERVICE BRIEF OPERATIVE NOTE LOG ID: [id number] Surgery/Procedure Date: 12/21/2021 Incision/Procedure Start Time: 8:07 AM Incision Close/Procedure End Time: Patient Age: [age] year old Surgeon(s)/Procedurali st(s) and Fence Builder(s): Surgeon(s) and Role: * Jesus aRm MD - Primary * David Moise MD [...] 2021 TIME: 8:49 AM PAGER/CONTACT #: Nestor [facility] OPERATIVE NOon 12-21-2021 OPERATIVE NO HNO ID: [id number] Author: Jesus Ram MD Service: Urology Author Type: Physician Type: Operative Report Filed: 12/21/2021 12:58 PM Note Text: [facility] - Operative Report [address] [address] [place] RABIA, MILAN Avery : 1950 AGE: 71. SEX: M PATIENT TYPE: A HOSP SVC: UROL LOCATION: [id number] ATTENDING PHYSICIAN: Jesus Ram M.D. CSN NUMBER: [id number] DATE OF SURGERY/PROCEDURE: 12/21/2021 INCISION/PROCEDURE START TIME: [...] for prostate cancer. SURGEON: Jesus Ram M.D. GRINDER SETUP OPERATOR: Dr. David Moise. SURGERY/PROCEDURE: Cystoscopy with transurethral [...] and the few brachytherapy seeds using the Impulcity evacuator. At the conclusion, we confirmed that there were no further chips within the bladder and the ureteral orifices were intact. We inserted a 20-Burmese soft silicone catheter and placed 20 mL [...] ACCIDENTAL PUNCTURES (more content not included)... Normal [facility] SURGICAL PATHOLOGYon 022 CASE REPORT Normal [facility] Comment on above: Order Comment: Speci men Type: TISSUE SPECIMENOrdering Facility: [facility] Address: [address] [place] [address] Result Comment: Surg ica Pathology Report Case: [id number] Authorizing Provider: Jesus Ram MD Collected: 12/21/2021 08:47 AM Ordering Location: [place] [address] Received: 12/21/2021 09:43 AM Pathologist: Sim Valdez MD Specimen: PROSTATE TISSUE (CHIPS), h/o radiation, for prostate cancer Performed By: #### S ####[facility] LABCLIA [id number] [address] [place] FINAL DIAGNOSIS Normal [facility] Comment on above: Order Comment: Speci men Type: TISSUE SPECIMENOrdering Facility: [facility] Address: [address] [place] [address] Result Comment: Pros burton, transurethral resection: -Prostate tissue with benign prostatic hyperplasia and radiation therapy effect. -Small focus of atypical glands with radiation therapy effect. Performed By: #### S ####[facility] LABIA [id number] [place] [address] [place] FINAL PERFORMING LAB Normal [facility] Comment on above: Order Comment: Speci men Type: TISSUE SPECIMENOrdering Facility: [facility] Address: [address] [place] [address] Result Comment: Diag nostic interpretation performed at [facility], [address] [place] [address] CLIA# [id number] Supervisor [employer]: Marcos Masters M.D. Performed By: #### S ####[facility] [id number] [place] [address] [place] GROSS DESCRIPTION Normal [facility] Comment on above: Order Comment: Speci men Type: TISSUE SPECIMENOrdering Facility: [facility] Address: [address] [place] [address] Result Comment: A. P ROSTATE TISSUE (CHIPS). [...] 2021 12:02 PM Gross examination performed at [facility], [address] [place] [address] Performed By: #### S ####[facility] [id number] [place] [address] [place] SARS-CoV-2 RNA Resp Ql LYNNETTE+p ana 12-19-2021 SARS-CoV-2 (COVID-19) RNA LYNNETTE+probe Ql (Resp) COVID 19 RESULT: SARS-CoV-2 (Agent of COVID-19) Not Detected by RT-PCR or equivalent method. This test was developed and its performance characteristics determined by [facility]'s Rasheed Wickformerly [facility] Pathology and Laboratory Medicine [place]. This test has been authorized by FDA under an Emergency Use Authorization (EUA). This test has been validated in accordance with the FDA's Guidance Document Policy for Diagnostics Testing in Laboratories Certified to Perform High Complexity Testing under CLIA prior to Emergency use Authorization for Coronavirus Disease 2019 during the Public Health Emergency issued on August 21, 2019. Test performed by [facility], Rasheed Rodriguez Pathology and Laboratory Medicine [place], [address] [place] [address]. Normal [facility] Comment on above: Performed By: #### 9 4500-6 ####[facility] LABCLIA [id number] [address] [place] Bacteria Ur Culton 2 Bacteria identified Cx Nom (U) CULTURE, URINE: No growth (<1,000 CFU/ml) Normal [facility] Comment on above: Performed By: #### 6 30-4 ####[facility] LABCLIA [id number] [place] [address] [place] CBC panel Auto (Bld)on 12-12 Erythrocyte distribution width (RBC) [Ratio] 14.3 % Normal 11.5-15.0 [facility] Comment on above: Order Comment: Speci men Type: BLOOD SPECIMENOrdering Facility: [facility] Address: [address] [place] [address] Performed By: #### 5 8410-2 ####[facility] LABCLIA [id number] [place] [address] [place] Hematocrit (Bld) [Volume fraction] 41.4 % Normal 39.0-51.0 [facility] Comment on above: Order Comment: Speci men Type: BLOOD SPECIMENOrdering Facility: [facility] Address: [address] [place] [address] Performed By: #### 5 8410-2 ####[facility] LABCLIA [id number] [place] [address] [place] Hemoglobin (Bld) [Mass/Vol] 13.1 g/dL Normal 13.0-17.0 [facility] Comment on above: Order Comment: Speci men Type: BLOOD SPECIMENOrdering Facility: [facility] Address: [address] [place], [place] [address] Performed By: #### 5 8410-2 ####[facility] LABIA [id number] [address] MCH (RBC) [Entitic mass] 28.8 pg Normal 26.0-34.0 [facility] Comment on above: Order Comment: Speci men Type: BLOOD SPECIMENOrdering Facility: [facility] Address: [address] [place], [place] [address] Performed By: #### 5 8410-2 ####[facility] LABIA [id number] [address] [place] MCHC (RBC) [Mass/Vol] 31.6 g/dL Normal 30.5-36.0 [facility] Comment on above: Order Comment: Speci men Type: BLOOD SPECIMENOrdering Facility: [facility] Address: [address] [place], [place] [address] Performed By: #### 5 8410-2 ####[facility] LABIA [id number] [address] [place] MCV (RBC) [Entitic vol] 91.0 fL Normal 80.0-100.0 [facility] Comment on above: Order Comment: Speci men Type: BLOOD SPECIMENOrdering Facility: [facility] Address: [address] [place], [place] [address] Performed By: #### 5 8410-2 ####[facility] LABIA [id number] [address] [place] Nucleated RBC (Bld) [#/Vol] 10*3/uL Normal <0.01 [facility] Comment on above: Order Comment: Speci men Type: BLOOD SPECIMENOrdering Facility: [facility] Address: [address] [place], [place] [address] Performed By: #### 5 8410-2 ####[facility] LABIA [id number] [place] [address] [place] Platelet mean volume (Bld) [Entitic vol] 10.5 fL Normal 9.0-12.7 [facility] Comment on above: Order Comment: Speci men Type: BLOOD SPECIMENOrdering Facility: [facility] Address: [address] [place], [place] [address] Performed By: #### 5 8410-2 ####[facility] LABIA [id number] [place] [address] [place] Platelets (Bld) [#/Vol] 245 10*3/uL Normal 150-400 [facility] Comment on above: Order Comment: Speci men Type: BLOOD SPECIMENOrdering Facility: [facility] Address: [address] [place], [place] [address] Performed By: #### 5 8410-2 ####[facility] LABIA [id number] [place] [address] [place] RBC (Bld) [#/Vol] 4.55 10*6/uL Normal 4.20-6.00 [facility] Comment on above: Order Comment: Speci men Type: BLOOD SPECIMENOrdering Facility: [facility] Address: [address] [place] [address] Performed By: #### 5 8410-2 ####[facility] LABIA [id number] [place] [address] [place] WBC (Bld) [#/Vol] 5.83 10*3/uL Normal 3.70-11.00 [facility] Comment on above: Order Comment: Speci men Type: BLOOD SPECIMENOrdering Facility: [facility] Address: [address] [place] [address] Performed By: #### 5 8410-2 ####[facility] LABCLIA [id number] [place] [address] [place] Erythrocyte distribution width (RBC) [Ratio] 14.3 % 11.5 - 15.0 % [facility] Hematocrit (Bld) [Volume fraction] 41.4 % 39.0 - 51.0 % [facility] Hemoglobin (Bld) [Mass/Vol] 13.1 g/dL 13.0 - 17.0 g/dL [facility] MCH (RBC) [Entitic mass] 28.8 pg 26.0 - 34.0 pg [facility] MCHC (RBC) [Mass/Vol] 31.6 g/dL 30.5 - 36.0 g/dL [facility] MCV (RBC) [Entitic vol] 91.0 fL 80.0 - 100.0 fL [facility] Nucleated RBC (Bld) [#/Vol] 10*3/uL <0.01 k/uL [facility] Platelet mean volume (Bld) [Entitic vol] 10.5 fL 9.0 - 12.7 fL [facility] Platelets (Bld) [#/Vol] 245 10*3/uL 150 - 400 k/uL [facility] RBC (Bld) [#/Vol] 4.55 10*6/uL 4.20 - 6.00 m/uL [facility] WBC (Bld) [#/Vol] 5.83 10*3/uL 3.70 - 11.00 k/u L [facility] CNOVon 12-12-2021 CNOV Office Visit (UROLMN ) MILAN CAMARILLO ([id number]) 1950 M Date Time Provider Department 12/12/21 2:20 PM MARCY DONAHUE During your visit today, we recorded the following information about you: Pulse Blood pressure Weight 52/minute 126/68 123.1 kg Marcy Donahue APRN.NURSE TECH 12/12/2021 6:30 PM Signed UROLOGY SURGICAL HANDP SERVICE DATE: 12/12/2021 SERVICE TIME: 2:25 PM REFERRING PROVIDER: Jesus Ram [address] [facility] [address] PCP: Catracho Jiménez MD GENDER: SUBJECTIVE CHIEF [...] hearing. Cardiovascular: No history of angina, CHF, [place], cardiac surgery of stents. 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 Normal [facility] Comprehensive metabolic 2000 panelon 12-12-2021 Albumin [Mass/Vol] 4.2 g/dL Normal 3.9-4.9 [facility] Comment on above: Order Comment: Speci men Type: BLOOD SPECIMENOrdering Facility: [facility] Address: [address] [address] Performed By: #### 2 4323-8 ####[facility] LABCLIA [id number] [place] [address] [place] ALP [Catalytic activity/Vol] 92 U/L Normal 38-113 [facility] Comment on above: Order Comment: Speci men Type: BLOOD SPECIMENOrdering Facility: [facility] Address: [address] [address] Performed By: #### 2 4323-8 ####[facility] LABCLIA [id number] [address] [place] ALT [Catalytic activity/Vol] 20 U/L Normal 10-54 [facility] Comment on above: Order Comment: Speci men Type: BLOOD SPECIMENOrdering Facility: [facility] Address: [address] Performed By: #### 2 4323-8 ####[facility] LABCLIA [id number] [place] [address] [place] Anion gap [Moles/Vol] 12 mmol/L Normal 9-18 [facility] Comment on above: Order Comment: Speci men Type: BLOOD SPECIMENOrdering Facility: [facility] Address: [address] [address] Performed By: #### 2 4323-8 ####[facility] LABCLIA [id number] [place] [address] [place] AST [Catalytic activity/Vol] 19 U/L Normal 14-40 [facility] Comment on above: Order Comment: Speci men Type: BLOOD SPECIMENOrdering Facility: [facility] Address: [address] [place] [address] Performed By: #### 2 4323-8 ####[facility] LABCLIA [id number] [place] [address] [place] Bilirubin [Mass/Vol] 0.3 mg/dL Normal 0.2-1.3 [facility] Comment on above: Order Comment: Speci men Type: BLOOD SPECIMENOrdering Facility: [facility] Address: [address] [place] [address] Performed By: #### 2 4323-8 ####[facility] LABCLIA [id number] [place] [address] [place] Calcium [Mass/Vol] 9.4 mg/dL Normal 8.5-10.2 [facility] Comment on above: Order Comment: Speci men Type: BLOOD SPECIMENOrdering Facility: [facility] Address: [address] [place] [address] Performed By: #### 2 4323-8 ####[facility] LABCLIA [id number] [place] [address] [place] Chloride [Moles/Vol] 104 mmol/L Normal 97-105 [facility] Comment on above: Order Comment: Speci men Type: BLOOD SPECIMENOrdering Facility: [facility] Address: [address] [place], [place] [address] Performed By: #### 2 4323-8 ####[facility] LABCLIA [id number] [place] [address] [place] CO2 [Moles/Vol] 26 mmol/L Normal 22-30 [facility] Comment on above: Order Comment: Speci men Type: BLOOD SPECIMENOrdering Facility: [facility] Address: [address] [address] Performed By: #### 2 4323-8 ####[facility] [id number] [address] STATES [facility] Creatinine [Mass/Vol] 0.95 mg/dL Normal 0.73-1.22 [facility] Comment on above: Order Comment: Speci men Type: BLOOD SPECIMENOrdering Facility: [facility] Address: [address] [place] [address] Performed By: #### 2 4323-8 ####[facility] [id number] [address] OF [facility] ESTIMATED GLOMERULAR FILTRATION RATE 85 mL/min/1.73m??? Normal >=60 [facility] Comment on above: Order Comment: Speci men Type: BLOOD SPECIMENOrdering Facility: [facility] Address: [address] [place] [address] Result Comment: Daysi mated Glomerular Filtration Rate [...] actual GFR. Performed By: #### 2 4323-8 ####[facility] [id number] [place] [address] [place] Glucose [Mass/Vol] 97 mg/dL Normal 74-99 [facility] Comment on above: Order Comment: Speci men Type: BLOOD SPECIMENOrdering Facility: [facility] Address: [address] [place] [address] Result Comment: The [place] Diabetes Association (ADA) provides guidance for cutoff [...] Standards of Medical Care in Diabetes 2016, [place] [employer]. Diabetes Care. 2016.39(Suppl 1). Performed By: #### 2 4323-8 ####[facility] LABCLIA [id number] [place] [address] [place] Potassium [Moles/Vol] 4.5 mmol/L Normal 3.7-5.1 [facility] Comment on above: Order Comment: Radha lim Type: BLOOD SPECIMENOrdering Facility: [facility] Address: [address] [place] [address] Performed By: #### 2 4323-8 ####[facility] LABIA [id number] [place] [address] [place] Protein [Mass/Vol] 7.2 g/dL Normal 6.3-8.0 [facility] Comment on above: Order Comment: Radha lim Type: BLOOD SPECIMENOrdering Facility: [facility] Address: [address] [place] [address] Performed By: #### 2 4323-8 ####[facility] LABCLIA [id number] [place] [address] [place] Sodium [Moles/Vol] 142 mmol/L Normal 136-144 [facility] Comment on above: Order Comment: Ilani men Type: BLOOD SPECIMENOrdering Facility: [facility] Address: [address] [place] [address] Performed By: #### 2 4323-8 ####[facility] LABCLIA [id number] [place] [address] [place] Urea nitrogen [Mass/Vol] 10 mg/dL Normal 9-24 [facility] Comment on above: Order Comment: Speci men Type: BLOOD SPECIMENOrdering Facility: [facility] Address: [address] [place] [address] Performed By: #### 2 4323-8 ####[facility] LABCLIA [id number] [address] TYPE AND SCREEN,30 DAYon ABO O Normal [facility] Comment on above: Order Comment: Speci men Type: BLOOD SPECIMENOrdering Facility: [facility] Address: [address] [place] [address] Performed By: #### T SCR30 ####[facility] BLOOD BANKCLIA [id number] [address] HISTORICAL AB SCR STATUS Negative Normal [facility] Comment on above: Order Comment: Speci men Type: BLOOD SPECIMENOrdering Facility: [facility] Address: [address] [place], [place] [address] Performed By: #### T SCR30 ####[facility] BLOOD BANKCLIA [id number] [address] STATES [facility] Rh Nom (Bld) Positive Normal [facility] Comment on above: Order Comment: Speci men Type: BLOOD SPECIMENOrdering Facility: [facility] Address: [address] [place], [place] [address] Performed By: #### T SCR30 ####[facility] BLOOD BANKCLIA [id number] [address] [place] URINALYSIS, REFLEX MICROSCOP ICon 12-12-2021 Bilirubin Ql (U) Negative Normal Negative [facility] Comment on above: Order Comment: Speci men Type: URINE SPECIMENOrdering Facility: [facility] Address: [address] [place] [address] Performed By: #### L [id number] ####[facility] Q7CLIA [id number] [address] [place] Clarity (Unsp spec) Clear Normal Clear [facility] Comment on above: Order Comment: Speci men Type: URINE SPECIMENOrdering Facility: [facility] Address: [address] [place], [place] [address] Performed By: #### L [id number] ####[facility] Q7CLIA [id number] [address] [place] Color (U) Light Yellow Normal Yellow [facility] Comment on above: Order Comment: Speci men Type: URINE SPECIMENOrdering Facility: [facility] Address: [address] [place], [place] [address] Performed By: #### L [id number] ####[facility] Q7CLIA [id number] [address] OF [facility] Glucose Test strip (U) [Mass/Vol] Negative Normal Negative [facility] Comment on above: Order Comment: Speci men Type: URINE SPECIMENOrdering Facility: [facility] Address: [address] [place], [place] [address] Performed By: #### L [id number] ####[facility] Q7CLIA [id number] [place] [address] [place] Hemoglobin Ql (U) Negative Normal Negative [facility] Comment on above: Order Comment: Speci men Type: URINE SPECIMENOrdering Facility: [facility] Address: [address] [place], [place] [address] Performed By: #### L [id number] ####[facility] Q7CLIA [id number] [address] [place] Ketones Ql (U) Negative Normal Negative [facility] Comment on above: Order Comment: Speci men Type: URINE SPECIMENOrdering Facility: [facility] Address: [address] [place] [address] Performed By: #### L [id number] ####[facility] Q7CLIA [id number] [address] [place] Leukocyte esterase Test strip Ql (U) Negative Normal Negative [facility] Comment on above: Order Comment: Speci men Type: URINE SPECIMENOrdering Facility: [facility] Address: [address] [place] [address] Performed By: #### L [id number] ####[facility] Q7CLIA [id number] [place] [address] [place] Nitrite Ql (U) Negative Normal Negative [facility] Comment on above: Order Comment: Speci men Type: URINE SPECIMENOrdering Facility: [facility] Address: [address] [place] [address] Performed By: #### L [id number] ####[facility] Q7CLIA [id number] [address] [place] pH (U) 6.0 [pH] Normal 5.0-8.0 [facility] Comment on above: Order Comment: Speci men Type: URINE SPECIMENOrdering Facility: [facility] Address: [address] [place] [address] Performed By: #### L [id number] ####[facility] Q7CLIA [id number] [address] Protein (U) [Mass/Vol] Negative Normal Negative [facility] Comment on above: Order Comment: Speci men Type: URINE SPECIMENOrdering Facility: [facility] Address: [address] [place], [place] [address] Performed By: #### L [id number] ####[facility] Q7CLIA [id number] [address] STATES [facility] Specific gravity (U) [Rel density] 1.006 Normal 1.005-1.030 [facility] Comment on above: Order Comment: Speci men Type: URINE SPECIMENOrdering Facility: [facility] Address: [address] [place], [place] [address] Performed By: #### L [id number] ####[facility] Q7CLIA [id number] [address] OF [place] Urobilinogen Ql (U) Negative Normal Negative [facility] Comment on above: Order Comment: Speci men Type: URINE SPECIMENOrdering Facility: [facility] Address: [address] [place] [address] Performed By: #### L [id number] ####[facility] Q7CLIA [id number] [place] [address] [place] Bilirubin Ql (U) Negative Negative [facility] Clarity (Unsp spec) Clear Clear [facility] Color (U) Light Yellow Yellow [facility] Glucose Test strip (U) [Mass/Vol] Negative Negative [facility] Hemoglobin Ql (U) Negative Negative [facility] Ketones Ql (U) Negative Negative [facility] Leukocyte esterase Test strip Ql (U) Negative Negative [facility] Nitrite Ql (U) Negative Negative [facility] pH (U) 6.0 [pH] 5.0 - 8.0 [facility] Protein (U) [Mass/Vol] Negative Negative [facility] Specific gravity (U) [Rel density] 1.006 1.005 - 1.030 [facility] Urobilinogen Ql (U) Negative Negative [facility] SARS-CoV-2 RNA Resp Ql LYNNETTE+p [facility] 10-27-2021 SARS-CoV-2 (COVID-19) RNA LYNNETTE+probe Ql (Resp) COVID 19 RESULT: SARS-CoV-2 (Agent of COVID-19) Not Detected by RT-PCR or equivalent method. This test was developed and its performance characteristics determined by [facility]'s [facility] [place]. This test has been authorized by FDA under an Emergency Use Authorization (EUA). This test has been validated in accordance with the FDA's Guidance Document Policy for Diagnostics Testing in Laboratories Certified to Perform High Complexity Testing under CLIA prior to Emergency use Authorization for Coronavirus Disease 2019 during the Public Health Emergency issued on August 21, 2019. Test performed by [facility], [facility] [place], [address] [address]. Normal [facility] Comment on above: Performed By: #### 9 4500-6 ####[facility] LABCLIA [id number] [facility] [id number] [id number] [place] Delroy 10-25-2021 PERICON Telephone (UROLMN) MILAN CAMARILLO ([id number]) 1950 M Date Time Provider Department 10/25/21 RUBÉN RCUZ During your visit today, we recorded the following information about you: Rubén Cruz APRN.CNP 10/25/2021 3:16 PM Signed ----- Message from Sarahy Morris Adm sent at 10/25/2021 10:13 AM EDT ----- Regarding: New Medication Contact: Patient is scheduled with [facility] for surgery on 10/30. He just started [...] picked it up yet. Milan Camarillo has PAC instructions on which meds to take day of surgery. He inquires about where he needs to check in. Advised that he will go to [facility] ([facility] which is west of [facility] and has its own parking garage. Encouraged him to call back if he has other questions before 10/30/2021. Rubén Cruz APRN.PERICO Allergies As of Date: 10/25/2021 Noted Allergy Reaction GLUCOSAMINE 10/10/2017 10 - Anaphylaxis 16 - Unknown IV DYE (IODINATED CONTRAST MEDIA) 05/22/2016 4 - Hives SHELLFISH CONTAINING PRODUCTS 05/22/2016 4 - Hives NIACIN 05/22/2016 4 - Hives 2 - Rash Date Reviewed: 10/23/2021 Reviewed by: Suri Whatley APRN.NURSE TECH - Fully Assessed Reason for Visit: Patient Question [8347] Prescriptions as of 10/25/2021 - doxycycline hyclate [...] tablet 50 mg daily at bedtime. - Zwolle-3 Fatty Acids, FISH OIL, (FISH OIL) 360-1,200 [...] (FLONASE) 50 mcg/actuation nasal spray Use 1 [place] in each nostril once daily. Problem List [...] by RUBÉN CRUZ on 10/25/21 [facility] HISTORY PHYSICALon HISTORY PHYSICAL HNO ID: [id number] Author: Suri Whatley APRN.NURSE TECH Service: ? Author Type: Nurse Practitioner Type: [...] fibrillation, CAD, chest pain, CHF, DVT/PE, recent UT and murmur/valvular heart disease. GI: Positive for: [...] 50 mg daily at bedtime. Taking Yes Zwolle-3 Fatty Acids, FISH OIL, (FISH OIL) 360-1,200 [...] at bedtime. (more content not included)... Normal [facility] Bacteria Ur Culton 2 Bacteria identified Cx Nom (U) CULTURE, URINE: Normal urogenital juan: ORGANISM ID: 1 >=100,000 CFU/ml Staphylococcus epidermidis No further workup Normal [facility] Comment on above: Performed By: #### 6 30-4 ####[facility] LABCLIA [id number] [address] [place] OF [place] CBC panel Auto (Bld)on 10-22 Erythrocyte distribution width (RBC) [Ratio] 14.4 % Normal 11.5-15.0 [facility] Comment on above: Order Comment: Speci men Type: BLOOD SPECIMENOrdering Facility: [facility] Address: [address] [place] [address] Performed By: #### 5 8410-2 ####[facility] LABCLIA [id number] [place] [address] Hematocrit (Bld) [Volume fraction] 41.3 % Normal 39.0-51.0 [facility] Comment on above: Order Comment: Speci men Type: BLOOD SPECIMENOrdering Facility: [facility] Address: [address] [place] [address] Performed By: #### 5 8410-2 ####[facility] LABCLIA [id number] [place] [address] Hemoglobin (Bld) [Mass/Vol] 13.4 g/dL Normal 13.0-17.0 [facility] Comment on above: Order Comment: Speci men Type: BLOOD SPECIMENOrdering Facility: [facility] Address: [address] [place] [address] Performed By: #### 5 8410-2 ####[facility] LABCLIA [id number] [place] [address] MCH (RBC) [Entitic mass] 29.0 pg Normal 26.0-34.0 [facility] Comment on above: Order Comment: Speci men Type: BLOOD SPECIMENOrdering Facility: [facility] Address: [address] [place] [address] Performed By: #### 5 8410-2 ####[facility] LABCLIA [id number] [place] [address] MCHC (RBC) [Mass/Vol] 32.4 g/dL Normal 30.5-36.0 [facility] Comment on above: Order Comment: Speci men Type: BLOOD SPECIMENOrdering Facility: [facility] Address: [address] [address] Performed By: #### 5 8410-2 ####[facility] LABIA [id number] [place] [address] MCV (RBC) [Entitic vol] 89.4 fL Normal 80.0-100.0 [facility] Comment on above: Order Comment: Speci men Type: BLOOD SPECIMENOrdering Facility: [facility] Address: [address] [place] [address] Performed By: #### 5 8410-2 ####[facility] LABCLIA [id number] [place] [address] Nucleated RBC (Bld) [#/Vol] 10*3/uL Normal <0.01 [facility] Comment on above: Order Comment: Speci men Type: BLOOD SPECIMENOrdering Facility: [facility] Address: [address] [place] [address] Performed By: #### 5 8410-2 ####[facility] LABIA [id number] [place] [address] Platelet mean volume (Bld) [Entitic vol] 10.1 fL Normal 9.0-12.7 [facility] Comment on above: Order Comment: Speci men Type: BLOOD SPECIMENOrdering Facility: [facility] Address: [address] [place] [address] Performed By: #### 5 8410-2 ####[facility] LABIA [id number] [place] [address] Platelets (Bld) [#/Vol] 207 10*3/uL Normal 150-400 [facility] Comment on above: Order Comment: Speci men Type: BLOOD SPECIMENOrdering Facility: [facility] Address: [address] [place] [address] Performed By: #### 5 8410-2 ####[facility] LABIA [id number] [place] [address] RBC (Bld) [#/Vol] 4.62 10*6/uL Normal 4.20-6.00 [facility] Comment on above: Order Comment: Speci men Type: BLOOD SPECIMENOrdering Facility: [facility] Address: [address] [place] [address] Performed By: #### 5 8410-2 ####[facility] LABCLIA [id number] [place] [address] WBC (Bld) [#/Vol] 6.06 10*3/uL Normal 3.70-11.00 [facility] Comment on above: Order Comment: Speci men Type: BLOOD SPECIMENOrdering Facility: [facility] Address: [address] [place] [address] Performed By: #### 5 8410-2 ####[facility] LABCLIA [id number] [place] [address] Comprehensive metabolic 2000 panelon 10-22-2021 Albumin [Mass/Vol] 4.6 g/dL Normal 3.9-4.9 [facility] Comment on above: Order Comment: Speci men Type: BLOOD SPECIMENOrdering Facility: [facility] Address: [address] [place] [address] Performed By: #### 2 4323-8 ####[facility] LABCLIA [id number] [place] [address] ALP [Catalytic activity/Vol] 102 U/L Normal 38-113 [facility] Comment on above: Order Comment: Speci men Type: BLOOD SPECIMENOrdering Facility: [facility] Address: [address] [place] [address] Performed By: #### 2 4323-8 ####[facility] LABCLIA [id number] [place] [address] ALT [Catalytic activity/Vol] 22 U/L Normal 10-54 [facility] Comment on above: Order Comment: Speci men Type: BLOOD SPECIMENOrdering Facility: [facility] Address: [address] [place] [address] Performed By: #### 2 4323-8 ####[facility] LABCLIA [id number] [place] [address] Anion gap [Moles/Vol] 13 mmol/L Normal 9-18 [facility] Comment on above: Order Comment: Speci men Type: BLOOD SPECIMENOrdering Facility: [facility] Address: [address] [place] [address] Performed By: #### 2 4323-8 ####[facility] LABCLIA [id number] [place] [address] AST [Catalytic activity/Vol] 21 U/L Normal 14-40 [facility] Comment on above: Order Comment: Speci men Type: BLOOD SPECIMENOrdering Facility: [facility] Address: [address] [place] [address] Performed By: #### 2 4323-8 ####[facility] LABCLIA [id number] [place] [address] Bilirubin [Mass/Vol] 0.4 mg/dL Normal 0.2-1.3 [facility] Comment on above: Order Comment: Speci men Type: BLOOD SPECIMENOrdering Facility: [facility] Address: [address] [place] [address] Performed By: #### 2 4323-8 ####[facility] LABCLIA [id number] [place] [address] Calcium [Mass/Vol] 9.3 mg/dL Normal 8.5-10.2 [facility] Comment on above: Order Comment: Speci men Type: BLOOD SPECIMENOrdering Facility: [facility] Address: [address] [place] [address] Performed By: #### 2 4323-8 ####[facility] LABCLIA [id number] [place] [address] Chloride [Moles/Vol] 104 mmol/L Normal 97-105 [facility] Comment on above: Order Comment: Speci men Type: BLOOD SPECIMENOrdering Facility: [facility] Address: [address] [place] [address] Performed By: #### 2 4323-8 ####[facility] LABCLIA [id number] [place] [address] CO2 [Moles/Vol] 23 mmol/L Normal 22-30 [facility] Comment on above: Order Comment: Speci men Type: BLOOD SPECIMENOrdering Facility: [facility] Address: [address] [place] [address] Performed By: #### 2 4323-8 ####[facility] LABCLIA [id number] [place] [address] Creatinine [Mass/Vol] 0.96 mg/dL Normal 0.73-1.22 [facility] Comment on above: Order Comment: Speci men Type: BLOOD SPECIMENOrdering Facility: [facility] Address: [address] [place] [address] Performed By: #### 2 4323-8 ####[facility] LABCLIA [id number] [place] [address] ESTIMATED GLOMERULAR FILTRATION RATE 84 mL/min/1.73m??? Normal >=60 [facility] Comment on above: Order Comment: Speci men Type: BLOOD SPECIMENOrdering Facility: [facility] Address: [address] [place] [address] Result Comment: Daysi mated Glomerular Filtration Rate [...] actual GFR. Performed By: #### 2 4323-8 ####[facility] LABCLIA [id number] [place] [address] Glucose [Mass/Vol] 131 mg/dL High 74-99 [facility] Comment on above: Order Comment: Speci men Type: BLOOD SPECIMENOrdering Facility: [facility] Address: [address] [place], [place] [address] Result Comment: The [place] Diabetes Association (ADA) provides guidance for cutoff [...] Standards of Medical Care in Diabetes 2016, [place] [employer]. Diabetes Care. 2016.39(Suppl 1). Performed By: #### 2 4323-8 ####[facility] LABCLIA [id number] [place] [address] Potassium [Moles/Vol] 4.1 mmol/L Normal 3.7-5.1 [facility] Comment on above: Order Comment: Speci men Type: BLOOD SPECIMENOrdering Facility: [facility] Address: [address] [place], [place] [address] Performed By: #### 2 4323-8 ####[facility] LABCLIA [id number] [place] [address] Protein [Mass/Vol] 7.2 g/dL Normal 6.3-8.0 [facility] Comment on above: Order Comment: Speci men Type: BLOOD SPECIMENOrdering Facility: [facility] Address: [address] [place] [address] Performed By: #### 2 4323-8 ####[facility] LABCLIA [id number] [place] [address] Sodium [Moles/Vol] 140 mmol/L Normal 136-144 [facility] Comment on above: Order Comment: Speci men Type: BLOOD SPECIMENOrdering Facility: [facility] Address: [address] [place] [address] Performed By: #### 2 4323-8 ####[facility] LABCLIA [id number] [place] [address] Urea nitrogen [Mass/Vol] 16 mg/dL Normal 9-24 [facility] Comment on above: Order Comment: Speci men Type: BLOOD SPECIMENOrdering Facility: [facility] Address: [place] [address] Performed By: #### 2 4323-8 ####[facility] LABCLIA [id number] [place] [address] CNNURSEon 10-03-2021 CNNURSE Nurse Visit (UROSMN) MILAN CAMARILLO ([id number]) 1950 M Date Time Provider Department 10/03/21 2:00 PM FLUROURODYNAMICS UROSMN During your visit today, we recorded the following information about you: Thao Singer RN 10/03/2021 3:25 PM Signed [facility] URODYNAMICS LAB URODYNAMIC [...] Thao Ram MD 10/07/2021 8:29 PM Signed [facility] PHYSICIAN INTERPRETATION: Urodynamics [...] (D3-2000 ORAL) (more content not included)... Normal [facility] CNOVon 10-03-2021 CNOV Office Visit (UROSMN ) RABIAMILAN ([id number]) 1950 M Date Time Provider Department 10/03/21 [...] Medications:Cipro 500 mg x 1 MD Kamilah Kruse, RN 10/03/2021 3:39 PM Signed Actual procedure/procedure [...] Interested Family/Significant Other Support: None - Unavailable/disinteres nando Cognitive Ability: Alert/Oriented Method of Instruction: Individual instruction Written instruction - handouts Verbal instruction The Following Influencing Factors Were Barriers To This Education Session: None The Following Physical Limitations Were Barriers To This Education Session: None Instruction Provided To: Patient Radio Message Router Present: not applicable Discipline: Nursing Learning Topic: [...] The intende (more content not included)... Normal [facility] CBC AUTO DIFFon 10-01-2021 BASO # 0.1 103/ul Normal 0.0-0.1 [facility] Comment on above: Performed By: #### P SASC #### [facility] [address] [place] [address] Dr. Karina Del Valle Basophils/100 WBC (Bld) 0.8 % Normal 0.2-2.0 [facility] Comment on above: Performed By: #### P SASC #### [facility] [address] [place] [address] Dr. Karina Del Valle EO # 0.3 103/ul Normal 0.0-0.7 [facility] Comment on above: Performed By: #### P SASC #### [facility] [address] [place] [address] Dr. aKrina Del Valle Eosinophils/100 WBC (Bld) 4.4 % Normal 0.9-7.0 [facility] Comment on above: Performed By: #### P SASC #### [facility] [address] [place] [address] Dr. Karina Del Valle Erythrocyte distribution width (RBC) [Ratio] 13.9 % Normal 11.0-15.0 [facility] Comment on above: Performed By: #### P SASC #### [facility] [address] [place] [address] Dr. Karina Del Valle Hematocrit (Bld) [Volume fraction] 41.9 % Critically low 42.0-54.0 [facility] Comment on above: Performed By: #### P SASC #### [facility] [address] [place] [address] Dr. Karina Del Valle Hemoglobin (Bld) [Mass/Vol] 13.7 g/dL Critically low 14.0-18.0 [facility] Comment on above: Performed By: #### P SASC #### [facility] [address] [place] [address] Dr. Karina Del Valle IG # 0.03 10e3/ul Normal 0.00-0.03 [facility] Comment on above: Performed By: #### P SASC #### [facility] [address] [place] [address] Dr. Karina Del Valle IG % 0.5 % Normal 0.0-0.5 [facility] Comment on above: Performed By: #### P SASC #### [facility] [address] [place] [address] Dr. Karina Del Valle LYMPH # 1.1 103/ul Critically low 1.2-3.8 [facility] Comment on above: Performed By: #### P SASC #### [facility] [address] [place] [address] Dr. Karina Del Valle Lymphocytes/100 WBC (Bld) 18.6 % Critically low 20.5-60.0 [facility] Comment on above: Performed By: #### P SASC #### [facility] [address] [place] [address] Dr. Kraina Del Valle MANUAL DIFF REQ NO Normal [facility] Comment on above: Performed By: #### P SASC #### [facility] [address] [place] [address] Dr. Karina Del Valle MCH (RBC) [Entitic mass] 29.4 pg Normal 25.9-34.0 [facility] Comment on above: Performed By: #### P SASC #### [facility] [address] [place] [address] Dr. Karina Del Valle MCHC (RBC) [Mass/Vol] 32.7 g/dL Normal 29.9-35.2 [facility] Comment on above: Performed By: #### P SASC #### [facility] [address] [place] [address] Dr. Karina Del Valle MCV (RBC) [Entitic vol] 89.9 fL Normal 80.0-94.0 [facility] Comment on above: Performed By: #### P SASC #### [facility] [address] [place] [address] Dr. Karina Del Valle MONO # 0.8 103/ul Normal 0.3-0.8 [facility] Comment on above: Performed By: #### P SASC #### [facility] [address] [place] [address] Dr. Karina Del Valle Monocytes/100 WBC (Bld) 12.7 % Critically high 1.7-12.0 [facility] Comment on above: Performed By: #### P SASC #### [facility] [address] [place] [address] Dr. Karina Del Valle NEUT # 3.8 103/ul Normal 1.4-6.5 [facility] Comment on above: Performed By: #### P SASC #### [facility] [address] [place] [address] Dr. Karina Del Valle Neutrophils/100 WBC (Bld) 63.0 % Normal 43.0-75.0 [facility] Comment on above: Performed By: #### P SASC #### [facility] [address] [place] [address] Dr. Karina Del Valle Platelet mean volume (Bld) [Entitic vol] 10.1 fL Normal 9.5-13.5 [facility] Comment on above: Performed By: #### P SASC #### [facility] [address] [place] [address] Dr. Karina Del Valle PLT 226 103/ul Normal 150-450 [facility] Comment on above: Performed By: #### P SASC #### [facility] [address] [place] [address] Dr. Karina Del Valle RBC 4.66 106/ul Critically low 4.70-6.10 [facility] Comment on above: Performed By: #### P SASC #### [facility] [address] [place] [address] Dr. Karina Del Valle WBC 6.1 103/ul Normal 4.0-11.0 [facility] Comment on above: Performed By: #### P SASC #### [facility] [address] [place] [address] Dr. Karina Del Valle GLYCOHEMOGLOBIN A1Con 04-11- 2022 ADA RECOMMENDATION ADA THERAPEUTIC TARG ET 6.0 - 7.0 ACTION SUGGESTED > 7.0 Normal [facility] Comment on above: Performed By: #### A 1C #### [facility] [address] [place] [address] Dr. Karina Del Valle Glucose [Mass/Vol] 114 mg/dL Normal [facility] Comment on above: Performed By: #### A 1C #### [facility] [address] [address] [address] Karina Del Valle HbA1c (Bld) [Mass fraction] 5.6 % Normal <=6.0 [facility] Comment on above: Performed By: #### A 1C #### [facility] [address] [place] [address] Dr. Karina Del Valle LIPID PROFILEon 10-01-2021 CHOL-HDL RATIO NORM SEE BELOW Normal [facility] Comment on above: Result Comment: 3.3 - 4.4 LOW RISK 4.4 - 7.1 AVERAGE RISK 7.1 - 11.0 MODERATE RISK >11.0 HIGH RISK Performed By: #### P SASC #### [facility] [address] [place] [address] Dr. Karina Del Valle Cholesterol [Mass/Vol] 103 mg/dL Normal <=200 [facility] Comment on above: Performed By: #### P SASC #### [facility] [address] [place] [address] Dr. Karina Del Valle Cholesterol in HDL [Mass/Vol] 35 mg/dL Critically low 40-60 [facility] Comment on above: Performed By: #### P SASC #### [facility] [address] [place] [address] Dr. Karina Del Valle Cholesterol in LDL [Mass/Vol] 49.0 mg/dL Normal [facility] Comment on above: Performed By: #### P SASC #### [facility] [address] [place] [address] Dr. Karina Del Valle Cholesterol.total/ Cholesterol in HDL [Mass ratio] 2.9 {ratio} Normal [facility] Comment on above: Performed By: #### P SASC #### [facility] [address] [address] [address] Karina Del Valle HDL NORMAL > or = 60 mg/dl - LO W CARDIOVASCULAR RISK <40 mg/dl - HIGH CARDIOVASCULAR RISK Normal [facility] Comment on above: Performed By: #### P SASC #### [facility] [address] [address] [address] Karina Del Valle LDL CALC NORMAL SEE BELOW Normal [facility] Comment on above: Result Comment: <100 mg/dl OPTIMAL 100 - 129 mg/dl NEAR OR ABOVE OPTIMAL 130 - 159 mg/dl BORDERLINE HIGH 160 - 189 mg/dl HIGH >190 mg/dl VERY HIGH Performed By: #### P SASC #### [facility] [address] [address] [address] Karina Del Valle Triglyceride [Mass/Vol] 95 mg/dL Normal <=150 [facility] Comment on above: Performed By: #### P SASC #### [facility] [address] [place] [address] Dr. Karina Del Valle VLDL CALC 19.0 mg/dL Normal [facility] Comment on above: Performed By: #### P SASC #### [facility] [address] [address] [address] Karina Del Valle PROF 14(COMP METB)on 022 Albumin [Mass/Vol] 3.8 g/dL Normal 3.4-5.0 [facility] Comment on above: Performed By: #### P SASC #### [facility] [address] [place] [address] Dr. Karina Del Valle Albumin/Globulin [Mass ratio] 0.9 {ratio} Normal [facility] Comment on above: Performed By: #### P SASC #### [facility] [address] [address] [address] Karina Del Valle ALP [Catalytic activity/Vol] 100 U/L Normal 46-116 [facility] Comment on above: Performed By: #### P SASC #### [facility] [address] [place] [address] Dr. Karina Del Valle ALT [Catalytic activity/Vol] 35 U/L Normal 16-63 [facility] Comment on above: Performed By: #### P SASC #### [facility] [address] [address] [address] Karina Del Valle Anion gap [Moles/Vol] 13.3 mmol/L Normal [facility] Comment on above: Performed By: #### P SASC #### [facility] [address] [address] [address] Karina Del Valle AST [Catalytic activity/Vol] 23 U/L Normal 15-37 [facility] Comment on above: Performed By: #### P SASC #### [facility] [address] [address] [address] Karina Del Valle Bilirubin [Mass/Vol] 0.4 mg/dL Normal 0.2-1.3 [facility] Comment on above: Performed By: #### P SASC #### [facility] [address] [place] [address] Dr. Karina Del Valle Calcium [Mass/Vol] 8.9 mg/dL Normal 8.5-10.1 [facility] Comment on above: Performed By: #### P SASC #### [facility] [address] [address] [address] Karina Del Valle Chloride [Moles/Vol] 104 mmol/L Normal 98-107 [facility] Comment on above: Performed By: #### P SASC #### [facility] [address] [place] [address] Dr. Karina Del Valle CO2 [Moles/Vol] 29.1 mmol/L Normal 22.0-30.0 [facility] Comment on above: Performed By: #### P SASC #### [facility] [address] [address] [address] Karina Del Valle Creatinine [Mass/Vol] 1.01 mg/dL Normal 0.66-1.25 [facility] Comment on above: Performed By: #### P SASC #### [facility] [address] [address] [address] Karina Del Valle EGFR-AF HAITIAN >60 Normal >=60 [facility] Comment on above: Performed By: #### P SASC #### [facility] [address] [address] [address] Karina Del Valle EGFR-NON AF HAITIAN >60 Normal >=60 [facility] Comment on above: Performed By: #### P SASC #### [facility] [address] [address] [address] Karina Del Valle Globulin (S) [Mass/Vol] 4.0 g/dL Normal [facility] Comment on above: Performed By: #### P SASC #### [facility] [address] [address] [address] Karina Del Valle Glucose [Mass/Vol] 97 mg/dL Normal 74-106 [facility] Comment on above: Performed By: #### P SASC #### [facility] [address] [address] [address] Karina Del Valle Potassium [Moles/Vol] 4.4 mmol/L Normal 3.4-5.0 [facility] Comment on above: Performed By: #### P SASC #### [facility] [address] [address] [address] Karina De lValle Protein [Mass/Vol] 7.8 g/dL Normal 6.1-8.2 [facility] Comment on above: Performed By: #### P SASC #### [facility] [address] [address] [address] Karina Del Valle Sodium [Moles/Vol] 142 mmol/L Normal 137-145 [facility] Comment on above: Performed By: #### P SASC #### [facility] [address] [address] [address] Karina Del Valle Urea nitrogen [Mass/Vol] 11.0 mg/dL Normal 7.0-18.0 [facility] Comment on above: Performed By: #### P SASC #### [facility] [address] [address] [address] Karina Del Valle Urea nitrogen/Creatinin e [Mass ratio] 10.9 mg/mg Normal [facility] Comment on above: Performed By: #### P SASC #### [facility] [address] [address] [address] Karina Irby 04-30-2021 CNOV Office Visit (UROLMN ) MILAN CAMARILLO ([id number]) 1950 M Date Time Provider Department 04/30/21 1:15 PM JESUS RAM During your visit today, we recorded the following information about you: Pulse Blood pressure 62/minute 138/84 Jesus Ram MD 04/30/2021 4:53 PM Signed [facility] [place] NEW PATIENT HISTORY AND PHYSICAL EXAM PATIENT INFO: Milan Camarillo 70 year old REFERRING M.D.: Rasheed Hanks [address] [facility] [address] [facility] [address] HISTORY: Milan Camarillo is a 70 year [...] UDS. Milan Camarillo had recent MRI at [facility] in [place] for renal mass. Milan Camarillo reports lots [...] (COZAAR) 100 mg tablet 50 mg. - Zwolle-3 Fatty Acids, FISH OIL, (FISH OIL) 360-1,200 [...] (FLONASE) 50 mcg/actuation nasal spray Use 1 [place] in each nostril once daily. No current [...] weight l (more content not included)... Normal [facility] Urinalysison 04-30-2021 Bilirubin, Urine Negative Normal Negative Aracelis manuel [facility] Comment on above: Performed By: #### U A ####[facility] [place], [place] [phone] Clarity (U) Clear Normal Clear [facility] Comment on above: Performed By: #### U A ####[facility] [place], [place] [phone] Color (U) Colorless Critically abnormal Yellow [facility] Comment on above: Performed By: #### U A ####[address], [place] [phone] Comments SEE COMMENT Normal [facility] Comment on above: Result Comment: Micr oscopic not warranted Performed By: #### U A ####[address] [place] [address] [address] [phone] Glucose Ql (U) Negative Normal Negative [facility] Comment on above: Performed By: #### U A ####[address] [address] [address] [phone] Hemoglobin/Blood,U r Negative Normal Negative [facility] Comment on above: Performed By: #### U A ####[address] [address] [address] [phone] Ketones Ql (U) Negative Normal Negative [facility] Comment on above: Performed By: #### U A ####[address] [address] [address] [phone] Leukest Negative Normal Negative [facility] Comment on above: Performed By: #### U A ####[address] [place] [address] [address] [phone] Nitrite Ql (U) Negative Normal Negative [facility] Comment on above: Performed By: #### U A ####[address] [address] [place] [phone] pH (U) 5.5 [pH] Normal 5.0-8.0 [facility] Comment on above: Performed By: #### U A ####[address] [place] [address] [address] [phone] Protein, Urine Negative Normal Negative [facility] Comment on above: Performed By: #### U A ####[address] [address] [address] [place], [place] [phone] Specific [place], Ur 1.005 Normal 1.005-1.030 [facility] Comment on above: Performed By: #### U A ####[facility] [place], [place] [phone] Urine Chrissie Comment SEE COMMENT Normal [facility] Comment on above: Result Comment: N/A Performed By: #### U A ####[facility] [place], [place] [phone] Urobilinogen (U) [Mass/Vol] Negative Normal Negative [facility] Comment on above: Performed By: #### U A ####[id number] [place], [place] [phone] Urine Cultureon 04-19-2021 Bacteria identified Cx Nom [...] F Vancomycin SUSCEPTIBLE 1 F Critically abnormal [facility] Comment on above: Performed By: #### U RCUL ####[facility] [place], [place] [phone] MRI KIDNEY WO/W IVCONon 03-24 MRI KIDNEY WO/W IVCON * * *Final Report* * * DATE OF EXAM: Apr 13 2021 10:07AM [facility] 0721 - MRI KIDNEY WO/W IVCON [...] included: axial precontrast T1 weighted in- and wac-az-rsvie, axial and coronal HASTE, axial DWI with [...] IS RECOMMENDED. 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 Equipment Engineering Technician: CAROL Transcribe Date/Time: Apr 13 2021 10:48A Dictated by : REEMA CAMPOS MD This examination was interpreted and the report reviewed and electronically signed by: GALILEO DURAN MD on Apr 13 2021 1:52PM EST [id number] Normal [facility] MRI KIDNEY WO/W IVCONon 03-24 [facility] CNOVon 03-23-2021 CNOV Office Visit (UROLMN ) MILAN CAMARILLO ([id number]) 1950 M Date Time Provider Department 03/23/21 10:45 AM RASHEED HANKS During your visit today, we recorded the following information about you: Pulse Blood pressure Weight Height 62/minute 125/76 119.7 kg 1.93 m Antonette Segura MD 03/23/2021 12:17 PM Signed [facility] NEW PATIENT [...] No results found for: CREAT URINALYSIS: Specific [place], Ur Date Value Ref Range Status 03/23/2021 [...] (COZAAR) 100 mg tablet 50 mg. - Zwolle-3 Fatty Acids, FISH OIL, (FISH OIL) 360-1,200 [...] (FLONASE) 50 mcg/actuation nasal spray Use 1 [place] in each nostril once daily. - cetirizine [...] RESPIRATORY: N (more content not included)... Normal [facility] Urinalysison 03-23-2021 Bilirubin, Urine Negative Normal Negative [facility] Comment on above: Performed By: #### U A ####[facility] [place], [place] [phone] Clarity (U) Clear Normal Clear [facility] Comment on above: Performed By: #### U A ####[facility] [place], [place] [phone] Color (U) Colorless Critically abnormal Yellow [facility] Comment on above: Performed By: #### U A ####[facility] [phone] Comments SEE COMMENT Normal [facility] Comment on above: Result Comment: Micr oscopic not warranted Performed By: #### U A ####[address] [place] [address] [address] [phone] Glucose Ql (U) Negative Normal Negative [facility] Comment on above: Performed By: #### U A ####[address] [place] [address] [address] [phone] Hemoglobin/Blood,U r Negative Normal Negative [facility] Comment on above: Performed By: #### U A ####[address] [place] [address] [address] [phone] Ketones Ql (U) Negative Normal Negative [facility] Comment on above: Performed By: #### U A ####[address] [place] [address] [address] [phone] Leukest Negative Normal Negative [facility] Comment on above: Performed By: #### U A ####[address] [phone] Nitrite Ql (U) Negative Normal Negative [facility] Comment on above: Performed By: #### U A ####[address] [address] [phone] pH (U) 6.0 [pH] Normal 5.0-8.0 [facility] Comment on above: Performed By: #### U A ####[address] [address] [phone] Protein, Urine Negative Normal Negative [facility] Comment on above: Performed By: #### U A ####[address] [address] [place], [place] [phone] Specific [place], Ur 1.004 Low 1.005-1.030 [facility] Comment on above: Performed By: #### U A ####[facility] [place], [place] [phone] Urine Chrissie Comment SEE COMMENT Normal [facility] Comment on above: Result Comment: N/A Performed By: #### U A ####[facility] [place], [place] [phone] Urobilinogen (U) [Mass/Vol] Negative Normal Negative [facility] Comment on above: Performed By: #### U A ####[facility] [place], [place] [phone] Activated partial thrombopla stin time (aPTT) in platelet poor plasma by coagulation aon 12-06-2020 aPTT Coag (PPP) [Time] 37.2 s 25.1-36.5 [facility] Basophils Auto (Bld) [#/Vol] on 12-06-2020 Basophils (Bld) [#/Vol] 0.1 10*3/uL 0.0-0.2 [facility] Basophils/100 WBC Auto (Bld) on 12-06-2020 Basophils/100 WBC (Bld) 0.9 % [facility] Blood hemoglobin measurement (mass/volume)on 12-06-2020 Hemoglobin (Bld) [Mass/Vol] 13.6 g/dL 13.0-17.0 [facility] Blood leukocytes automated c ount (number/volume)on 12-06-2020 WBC (Bld) [#/Vol] 5.9 10*3/uL 4.5-11.0 [facility] Cholesterol [Mass/volume] in Serum or Plasmaon 12-06-2020 Cholesterol [Mass/Vol] 105 mg/dL 140-200 [facility] Comment on above: Chol less than 200 m g/dl low riskChol 201-239 mg/dl borderline riskChol 240 mg/dl and greater high risk Cholesterol in LDL Calc [Mas s/Vol]on 12-06-2020 Cholesterol in LDL [Mass/Vol] 50 mg/dL 0-100 [facility] Comment on above: LDL ATP III CLASSIFI CATIONLDL less than 100 mg/dL OptimalLDL 100-129 mg/dL Near or above optimalLDL 130-159 mg/dL Borderline highLDL 160-189 mg/dL HighLDL greater than 189 mg/dL Very high Cholesterol in VLDL Calc [Ma ss/Vol]on 12-06-2020 Cholesterol in VLDL [Mass/Vol] 26 mg/dL [facility] Creatinine and Glomerular fi ltration rate.predicted panel (S/P/Bld)on 12-06-2020 Creatinine [Mass/Vol] 0.89 mg/dL 0.64-1.27 [facility] Eosinophils Auto (Bld) [#/Vo l]on 12-06-2020 Eosinophils (Bld) [#/Vol] 0.2 10*3/uL 0.0-0.45 [facility] Eosinophils/100 WBC Auto (Bl d)on 12-06-2020 Eosinophils/100 WBC (Bld) 3.4 % [facility] Erythrocyte distribution wid th Auto (RBC) [Ratio]on 12-06-2020 Erythrocyte distribution width (RBC) [Ratio] 14.4 % 12.0-14.8 [facility] Estimated glomerular filtrat ion rate (GFR) non- Americanon 12-06-2020 GFR/1.73 sq M.predicted among non-blacks MDRD (S/P/Bld) [Vol rate/Area] > 60 mL/Min [facility] Hematocrit Auto (Bld) [Volum e fraction]on 12-06-2020 Hematocrit (Bld) [Volume fraction] 39.6 % 38.8-50.0 [facility] Laboratory - Coagulationon 0 12-06-2020 PT Coag (PPP) [Time] 11.6 s 9.0-12.9 [facility] - Hematology and Cell countson 12-06-2020 Nucleated RBC/100 WBC (Bld) [Ratio] 0.1 % 0-0.5 [facility] Lymphocytes Auto (Bld) [#/Vo l]on 12-06-2020 Lymphocytes (Bld) [#/Vol] 1.0 10*3/uL 1.00-4.8 [facility] Lymphocytes/100 WBC Auto (Bl d)on 12-06-2020 Lymphocytes/100 WBC (Bld) 17.5 % [facility] MCH Auto (RBC) [Entitic mass ]on 12-06-2020 MCH (RBC) [Entitic mass] 31.0 pg 27.5-35.2 [facility] MCHC Auto (RBC) [Mass/Vol]on 12-06-2020 MCHC (RBC) [Mass/Vol] 34.5 g/dL 32.5-35.6 [facility] MCV Auto (RBC) [Entitic vol] on 12-06-2020 MCV (RBC) [Entitic vol] 90.0 fL 83.5-101 [facility] Monocytes Auto (Bld) [#/Vol] on 12-06-2020 Monocytes (Bld) [#/Vol] 0.6 10*3/uL 0.0-0.8 [facility] Monocytes/100 WBC Auto (Bld) on 12-06-2020 Monocytes/100 WBC (Bld) 10.3 % [facility] Neutrophils Auto (Bld) [#/Vo l]on 12-06-2020 Neutrophils (Bld) [#/Vol] 4.0 10*3/uL 1.8-7.7 [facility] Neutrophils/100 WBC Auto (Bl d)on 12-06-2020 Neutrophils/100 WBC (Bld) 67.9 % [facility] No Panel Informationon 12-06 Estimated GFR () > 60 mL/Min [facility] Comment on above: GFR estimated refere nce range: According to KDOQI guidelines, <60 ml/min/1.73m2 is sufficient to diagnose a patient with chronic kidney disease. Pharmacy Creatinine Clearance (Chem N/A [facility] Platelet mean volume Auto (B ld) [Entitic vol]on 12-06-2020 Platelet mean volume (Bld) [Entitic vol] 8.8 fL 6.6-10.1 [facility] Platelet poor plasma interna tional normalized ratio (INR) by coagulation assay (relaton 12-06-2020 INR Coag (PPP) [Relative time] 1.0 {INR} [facility] Comment on above: INR Therapeutic Rang e [...] 12-06-2020 Platelets (Bld) [#/Vol] 201 10*3/uL 150-450 [facility] RBC Auto (Bld) [#/Vol]on RBC (Bld) [#/Vol] 4.40 10*6/uL 3.90-5.60 [facility] Serum or plasma chloride warren surement (moles/volume)on 12-06-2020 Chloride [Moles/Vol] 101 mmol/L 95-114 [facility] Serum or plasma high density lipoprotein (HDL) cholesterol measurementon 12-06-2020 Cholesterol in HDL [Mass/Vol] 28 mg/dL 29-71 [facility] Comment on above: HDL CHOL ATP-III CLA SSIFICATION Cardiovascular RiskHDL > or equal to 60 mg/dL LOWHDL < 40 mg/dL HIGH Serum or plasma potassium me asurement (moles/volume)on 12-06-2020 Potassium [Moles/Vol] 4.4 mmol/L 3.5-5.1 [facility] Serum or plasma sodium measu rement (moles/volume)on 12-06-2020 Sodium [Moles/Vol] 139 mmol/L 136-146 [facility] Serum or plasma total carbon dioxide measurement (moles/volume)on 12-06-2020 CO2 [Moles/Vol] 26.3 mmol/L 22.0-30.0 [facility] Serum or plasma total choles terol/high density lipoprotein (HDL) cholesterol mass alirio 12-06-2020 Cholesterol.total/ Cholesterol in HDL [Mass ratio] 3.8 {ratio} [facility] Serum or plasma urea nitroge n measurement (mass/volume)on 12-06-2020 Urea nitrogen [Mass/Vol] 7 mg/dL 9-23 [facility] Triglyceride [Mass/volume] i n Serum or Plasmaon 12-06-2020 Triglyceride [Mass/Vol] 134 mg/dL 35-149 [facility] Comment on above: TRIG ATP III CLASSIF ICATIONTRIG less than 150 mg/dL NormalTRIG 150-199 mg/dL Borderline highTRIG 200-500 mg/dL High TRIG greater than 500 mg/dL Very highStandard traceable to the Center for Disease Conrtrol and Prevention (CDC) test method. History and Physicalon 10-16 HIM IP Note OR Circular Knife Cutter Machine Normal [facility] OPERATIVE REPORTon 8 OPERATIVE REPORT [address] [address] OPERATIVE REPORTPATIENT NAME: MILAN CAMARILLO : 1950[facility] REC NO: [id number] ROOM:ACCOUNT NO: [id number] ADMIT DATE: 10/16/2017PROVIDER: Ana Paula EppselDATE OF PROCEDURE: 10/16/2017PREOPERATIVE DIAGNOSIS: Macular hole, left [...] appointment to see my partner in our [facility] tomorrow at 9:30.ANA PAULA EPPSELD: 10/16/2017 10:40:57 [id number]#: [id number] Doc#: [id number]: [facility] Op Noteon 10-16-2017 HIM IP Note OR Circular Knife Cutter Machine [facility] Vital Signs Date Time Vital Sign Value Performing Clinician Facility 05-06-2023 10:30-0500 Body height 182.88 cm Khadijah [facility] Other [place] Other 05-06-2023 10:30-0500 Body mass index (BMI) [Ratio] 37.84 kg/m2 [facility] Other [place] Other 05-06-2023 10:30-0500 Body weight 126.55 kg [facility]ah [facility] Other [place] Other 05-06-2023 10:30-0500 Diastolic blood pressure 73 mm[Hg] [facility]ah [facility] Other [place] Other 05-06-2023 10:30-0500 SaO2% (BldA) [Mass fraction] 97 % [facility] Other [place] Other 05-06-2023 10:30-0500 Systolic blood pressure 142 mm[Hg] [facility] Other [place] Other 03-17-2023 09:01-0400 Blood Pressure Location Jeremy KELLEY [facility] 03-17-2023 09:01-0400 Diastolic blood pressure 79 mm[Hg] Jeremy KELLEY [facility] 03-17-2023 09:01-0400 Heart rate 57 /min Jeremy KELLEY [facility] 03-17-2023 09:01-0400 Respiratory rate 16 /min Jeremy KELLEY [facility] 03-17-2023 09:01-0400 Systolic blood pressure 140 mm[Hg] Jeremy KELLEY [facility] 12-09-2022 09:34-0400 Blood Pressure Location Jeremy KELLEY [facility] 12-09-2022 09:34-0400 Diastolic blood pressure 80 mm[Hg] Jeremy KELLEY [facility] 12-09-2022 09:34-0400 Heart rate 80 /min Jeremy KEL[facility] 12-09-2022 09:34-0400 Respiratory rate 16 /min Jeremy KELLEY [facility] 12-09-2022 09:34-0400 Systolic blood pressure 130 mm[Hg] Jeremy KELLEY [facility] 12-12-2021 14:50-0400 Diastolic blood pressure 68 mm[Hg] Marcy Warminski [employer] INFORMATION CLERK.NURSE TECH Work Phone: [facility] 12-12-2021 14:50-0400 Systolic blood pressure 126 mm[Hg] Marcy Warminski [employer] INFORMATION CLERK.NURSE TECH Work Phone: [facility] 12-12-2021 13:57-0400 Body weight 123.11 kg Marcy Warminski [employer] INFORMATION CLERK.NURSE TECH Work Phone: [facility] 12-12-2021 13:57-0400 Heart rate 52 /min Marcy Warminski [employer] INFORMATION CLERK.NURSE TECH Work Phone: [facility] 10-23-2021 11:38-0400 Body height 193 cm Pacc 4 Work Phone: [facility] 10-23-2021 11:38-0400 Body temperature 97 [degF] Pacc 4 Work Phone: [facility] 10-23-2021 11:38-0400 Body weight 125.19 kg Pacc 4 Work Phone: [facility] 10-23-2021 11:38-0400 Diastolic blood pressure 65 mm[Hg] Pacc 4 Work Phone: [facility] 10-23-2021 11:38-0400 Heart rate 57 /min Pacc 4 Work Phone: [facility] 10-23-2021 11:38-0400 Respiratory rate 16 /min Pacc 4 Work Phone: [facility] 10-23-2021 11:38-0400 SaO2% (BldA) [Mass fraction] 97 % Pac 4 Work Phone: [facility] 10-23-2021 11:38-0400 Systolic blood pressure 142 mm[Hg] Pac 4 Work Phone: [facility] Encounters Encounter Date Encounter Type Care Provider Facility Start: 07-10-2023 End: 07-11-2023 ambulatory ARNAUD BLACK Facility:[facility] Start: 07-10-2023 End: 07-10-2023 Lab Drop off ARNAUD BLACK [facility] Start: 07-10-2023 End: 07-11-2023 ambulatory Jeremy KELLEY Facility:[facility] Start: 07-10-2023 End: 07-10-2023 Patient encounter procedure Jeremy KELLEY [facility] Start: 06-25-2023 End: 06-26-2023 ambulatory Aviva Bang Facility:[facility] Start: 06-25-2023 End: 06-25-2023 Lab Drop off Aviva MHanna Jarrettradha [facility] Start: 06-25-2023 End: 06-25-2023 Patient encounter procedure Jeremy KELLEY [facility] Start: 06-09-2023 End: 06-10-2023 ambulatory MD Raegan March Facility:[facility] Start: 06-09-2023 End: 06-09-2023 Lab Drop off Raegan March [facility] Start: 05-06-2023 Office outpatient ne w [address] [facility] Start: 05-06-2023 End: 05-06-2023 ambulatory [facility]hadijah [facility] Other Start: 03-17-2023 End: 03-18-2023 ambulatory MD Raegan March Facility:[facility] Start: 03-17-2023 End: 03-18-2023 ambulatory Jeremy KELLEY Facility:[facility] Start: 03-17-2023 End: 03-17-2023 Lab Drop off Jeremy KELLEY [facility] Start: 03-17-2023 End: 03-17-2023 Patient encounter procedure Jeremy KELLEY [facility] Start: 03-03-2023 End: 03-04-2023 ambulatory MD Raegan March Facility:[facility] Start: 01-13-2023 End: 01-14-2023 ambulatory MD Raegan March Facility:[facility] Start: 12-30-2022 End: 12-31-2022 ambulatory MD Raegan March Facility:[facility] Start: 12-30-2022 End: 12-31-2022 ambulatory MD Raegan March Facility:[facility] Start: 12-09-2022 End: 12-10-2022 ambulatory Jeremy KELLEY Facility:[facility] Start: 12-09-2022 End: 12-09-2022 Patient encounter procedure Jeremy KELLEY [facility] Start: 11-25-2022 End: 11-26-2022 ambulatory MD Raegan March Facility:[facility] Start: 11-25-2022 End: 11-25-2022 Lab Drop off Raegan March [facility] Start: 11-13-2022 End: 11-14-2022 ambulatory MD Raegan March Facility:[facility] Start: 11-01-2022 End: 11-02-2022 ambulatory HATCH TENDER Pau L Sebastián Facility:[facility] Start: 10-18-2022 End: 10-19-2022 ambulatory HATCH TENDER Pau L Sebastián Facility:[facility] Start: 10-15-2022 End: 10-16-2022 ambulatory MD Raegan March Facility:[facility] Start: 10-15-2022 End: 10-16-2022 ambulatory MD Raegan March Facility:[facility] Start: 10-07-2022 End: 10-08-2022 ambulatory MD Raegan March Facility:[facility] [place] Start: 09-02-2022 End: 11-21-2022 ambulatory MD Raegan March Facility:[facility] Start: 08-29-2022 End: 08-30-2022 ambulatory MD [facility] Start: 08-26-2022 End: 08-27-2022 ambulatory RAEGAN MARCH Facility: Start: 08-26-2022 End: 08-27-2022 ambulatory MD Raegan March Facility:[facility] Start: 08-26-2022 End: 08-27-2022 ambulatory MD Raegan March [facility] Start: 08-26-2022 End: 08-26-2022 Lab Drop off Raegan March [facility] Start: 08-23-2022 ambulatory MD Raegan March Facil ity:[facility] Start: 08-05-2022 End: 08-06-2022 ambulatory KATJA BAEZ . Facility:[facility] Start: 05-21-2022 End: 05-22-2022 ambulatory [...] Facility: Start: 12-31-2021 Telephone encounter Rubén schmitt APRN.NURSE TECH Work Phone: Urology Comment on above: Surgical Followup Start: 12-12-2021 End: 12-12-2021 Patient encounter status Marcy Donahue APRN.NURSE TECH Work Phone: Urology Start: 12-12-2021 End: 12-12-2021 Preprocedural examination done Marcy Donahue APRN.NURSE TECH Work Phone: Urology Start: 12-12-2021 End: 12-12-2021 [...] 10-23-2021 End: 10-23-2021 Admission to establishment [place] [id number] Work Phone: [place] Start: 10-23-2021 End: 10-23-2021 [place] [address] Work Phone: Pre Anesthesia Comment on above: Preop examination (P rimary Dx); BPH with obstruction/lower urinary tract symptoms; Type 2 diabetes mellitus without complication, without long-term current use of insulin (HCC); Hypertension, unspecified type; Swelling; Chronic obstructive pulmonary disease, unspecified COPD type (HCC); Hypercholesteremia; On supplemental oxygen therapy; Former smoker; Obesity (BMI 30.0-34.9) Start: 10-23-2021 End: 10-23-2021 Preprocedural examination done [facility] 4 Work Phone: Pre Anesthesia Start: 10-03-2021 End: [...] 04-13-2021 Subsequent hospital visit by physician Mri [facility] (Lg Bore/1.5t) Radiology MRI Comment on above: Other 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 [N28.89] Start: 12-06-2020 End: 12-06-2020 Patient encounter procedure BRANDIE Garber Work Phone: -Pre-Surgical Testing Start: 10-16-2017 End: 10-16-2017 Ambulatory ANA PAULA K [facility] Start: 09-09-2017 End: 09-10-2017 Ambulatory DEFAULT PHYSICIAN Facility:[facility] Start: 09-08-2017 End: 09-09-2017 Ambulatory DEFAULT PHYSICIAN Facility:[facility] Procedures Date Procedure Procedure Detail Performing Clinician Start: 08-26-[address] CATRACHO JIMÉNEZ . Comment on above: Performed By: #### PSASC #### [facility] [address] [address] [address] Karina Del Valle Start: 12-21-2021 Transurethral prostatectomy Jeremy HUDDLESTON Start: 12-12-2021 Antibody screen Comment on above: Order Comment: Specimen Type: BLOOD SPEC IMENOrdering Facility: [facility] Address: [address] [place] [address] Performed By: #### T [id number] ####[facility] BLOOD BANKCLIA [id number] [address] [place] Start: 12-12-2021 Urnls dip [...] Appendectomy Raegan March Procedure on back Raegan Simin gutierrez Teleradiotherapy procedure Yeimi March Plan of Treatment Date Care Activity Detail Author Start: 11-25-2023 ambulatory Ambulatory Facility:[facility] Start: 09-15-2023 ambulatory Ambulatory Facility:[facility] Car[facility] Start: 02-21-2023 Covid-19 Vaccine ( season) Covid-19 Vaccine () [facility] Start: 02-21-2023 Influenza vaccination Influenza Vacc ine (#1) [facility] Start: 12-25-2022 BP CONTROLLED (<130/80) BP CONTROLLED (<130/80) [facility] Start: 12-12-2022 BP CONTROLLED (<130/80) BP CONTROLLED (<130/80) [facility] Start: 06-23-2022 Advance Directive Discussion Advance Directive Discussion [facility] Start: 06-23-2022 Depression Assessment Depression Ass essment [facility] Start: 02-21-2022 Influenza vaccination INFLUENZA (#1) [facility] Start: 01-09-2022 End: 03-11-2022 Basic metabolic 2000 panel - Serum or Plasma BASIC METABOLIC PNL Lab Routine Recurrent urinary tract infection Incomplete bladder emptying Expected: 01/09/2022, Expires: 03/11/2022 [facility] Work Phone: Comment on above: Expected: 01/09/2022 , Expires: 03/11/2022 Start: 01-09-2022 End: 03-11-2022 CBC panel - Blood by Automated count CBC Lab Routine Recurrent urinary tract infection Incomplete bladder emptying Expected: 01/09/2022, Expires: 03/11/2022 [facility] Work Phone: Comment on above: Expected: 01/09/2022 , Expires: 03/11/2022 Start: 12-12-2021 End: 02-11-2022 Comprehensive metabolic 2000 panel - Serum or Plasma [facility] Work Phone: Comment on above: Expected: 12/12/2021 (Approximate), Expires: 02/11/2022 Start: 12-12-2021 End: 02-11-2022 TYPE AND SCREEN,30 DAY [facility] Work Phone: Comment on above: Expected: 12/12/2021 (Approximate), Expires: 02/11/2022 Start: 11-14-2021 Adult depression screening assessment DEPRESSION SCREENING [facility] Start: 06-23-2021 ADVANCE DIRECTIVE DISCUSSION ADVANCE DIRECTIVE DISCUSSION [facility] Start: 2014 PNEUMOVAX AGE 65 AND OVER WITH 5YR LOOKBACK (#1) PNEUMOVAX AGE 65 AND OVER WITH 5YR LOOKBACK (#1) [facility] Start: 2009 Hepatitis B Vaccine (1 of 3 - Risk 3-dose series) Hepatitis B Vaccine (1 of 3 - Risk 3-dose series) [facility] Start: 2009 RSV Vaccine (1 - 1-dose 60+ series) RSV Vaccine (1 - 1-dose 60+ series) [facility] Start: 2004 Influenza vaccination LUNG CANCER [facility] Start: 09-17-1999 Influenza vaccination LUNG CANCER [facility] Start: 09-17-1999 SHINGRIX VACCINE (1 of 2) SHINGRIX VACCINE (1 of 2) [facility] Start: 1994 COLOGUARD (FIT-DNA) COLOGUARD (FIT-D NA) [facility] Start: 1994 Colonoscopy COLONOSCOPY [facility] Start: 1994 COLORECTAL CANCER SCREENING COLORECTAL CANCER SCREENING [facility] Start: [address] COLONOGRAPHY [facility] Start: 1994 FECAL OCCULT BLOOD FECAL OCCULT BLOO D [facility] Start: 1994 SIGMOIDOSCOPY SIGMOIDOSCOPY [facility] Start: 09-17-1979 Zoledronic acid therapy ALPHA-1 ANTITRYPSIN DEFICIENCY SCREENING [facility] Start: 1968 SHINGRIX VACCINE (1 of 2) SHINGRIX VACCINE (1 of 2) [facility] Start: 1968 Urine microalbumin profile [facility] Start: 09-17-1967 ANNUAL PCP TEAM CHRONIC DISEASE VISIT ANNUAL PCP TEAM CHRONIC DISEASE VISIT [facility] Start: 09-17-1967 BP CONTROLLED (<130/80) BP CONTROLLED (<130/80) [facility] Start: 09-17-1967 Hepatitis B surface antibody level LDL CHOLESTEROL [facility] Start: 09-17-1967 HEPATITIS C SCREENING HEPATITIS C [facility] Start: 09-17-1967 SPIROMETRY SPIROMETRY [facility] Start: 09-17-1959 3 comp foot exam completed DIABETIC FOOT EXAM [facility] Start: 09-17-1959 Hepatitis B screening URINE AL BUMIN:CREATININE RATIO [facility] Start: 09-17-1959 Hepatitis C antibody , confirmatory test DILATED RETINAL EXAM [facility] Start: 09-17-1955 Pneumococcal Vaccine : 65+ (1 - PCV) Pneumococcal Vaccine: 65+ (1 - PCV) [facility] Start: 09-17-1955 PNEUMOCOCCAL: 65+ (1 - PCV) PNEUMOCOCCAL: 65+ (1 - PCV) [facility] Start: 1954 Hemoglobin A1c/Hemoglobin.total in Blood HBA1C [facility] Start: 1949 ABDOMINAL AORTIC ANEURYSM SCREENING ABDOMINAL AORTIC ANEURYSM SCREENING [facility] Bacteria identified in Urine by Culture URINE CULTURE Microbiology Routine Pre-op testing 12/12/2021 2:27 PM EDT [facility] Work Phone: End: 10-23-2022 ECG COMPLETE ECG COMPLETE ECG Routine Preop examination BPH with obstruction/lower urinary tract symptoms Type 2 diabetes mellitus without complication, without long-term current use of insulin (HCC) Hypertension, unspecified type Swelling Chronic obstructive pulmonary disease, unspecified COPD type (HCC) Hypercholesteremia On supplemental oxygen therapy Former smoker Obesity (BMI 30.0-34.9) 1 Occurrences starting 10/23/2021 until 10/23/2022 [facility] Work Phone: Comment on above: 1 Occurrences starti ng 10/23/2021 until 10/23/2022 SARS-CoV-2 (COVID-19 ) RNA [Presence] in Respiratory specimen by LYNNETTE with probe detection SELF CHECK COVID Microbiology Routine Pre-op testing Ordered: 12/12/2021 [facility] Work Phone: Comment on above: Ordered: 12/12/2021 URINALYSIS, REFLEX MICROSCOPIC URINALYSIS, REFLEX MICROSCOPIC Lab Routine Screening for genitourinary condition Ordered: 12/12/2021 [facility] Work Phone: Comment on above: Ordered: 12/12/2021 [facility] Immunizations Immunization Date Immunization Notes Care Provider Jesus swain 05-23-2023 influenza virus vaccine, unspecified formulation Raegan March [facility] 06-03-2022 SARS-CoV-2 (COVID-19 ) [id number] Raegan March [facility] 04-23-2022 influenza virus vaccine, unspecified formulation Raegan March [facility] 09-25-2021 zoster vaccine recombinant Raegan March [facility] 06-18-2021 zoster vaccine recombinant Raegan March [facility] 04-06-2021 influenza virus vaccine, unspecified formulation Raegan March [facility] 04-06-2021 SARS-CoV-2 (COVID-19 ) mRNA BNT-162b2 vax Raegan March [facility] Comment on above: Result Comment: 2022: [id number] 08-22-2020 COVID-19 mRNA,IDL924 b2 (Pfizer) NA Jcarlos Work Phone: [facility] Comment on above: Result Comment: 2022: [id number] 08-04-2020 SARS-CoV-2 (COVID-19 ) mRNA BNT-162b2 vax Raegan March [facility] 07-31-2020 COVID-19 mRNA,[id number] b2 (Pfizer) NA Jcarlos Work Phone: [facility] Comment on above: Result Comment: 2022: [id number] 07-24-2020 SARS-CoV-2 (COVID-19 ) mRNA-1273 vaccine Raegan March [facility] 04-19-2020 influenza virus vaccine, unspecified formulation Raegan March [facility] 03-23-2020 influenza virus vaccine, unspecified formulation Raegan March [facility] 05-04-2019 influenza virus vaccine, unspecified formulation Raegan March [facility] 04-29-2018 influenza virus vaccine, unspecified formulation Raegan March [facility] 04-23-2017 influenza virus vaccine, unspecified formulation Raegan March [facility] 04-23-2017 pneumococcal polysaccharide vaccine, 23 valent Raegan March [facility] 03-23-2015 pneumococcal polysaccharide vaccine, 23 valent Raegan March [facility] 03-13-2015 influenza virus vaccine, unspecified formulation Raegan March [facility] 03-13-2015 pneumococcal conjuga te vaccine, 13 valent Raegan March [facility] NEGATED: Highlighted row has not occurred!03-17-2023 influenza virus vaccine, unspecified formulation Jeremy KELLEY [facility] Payers Date Payer Category Payer Private Health Insurance [id number] 2023 Medicare [id number] 2023 Self-pay [id number] 2023 Medicare [id number] 2022 Private Health Insurance [id number] 2021 Medicare [place] MEDICARE WELLCARE BY [facility] [id number] 2021-[facility] [phone] [place] [id number] O [id number] 2021 Unknown [id number] 2020 Medicare HUMANA MEDICARE HUMANA MEDICARE PPO [id number] 2020-2021 [address] [address] [place] [address] PPO [id number] 2017 Medicare [id number] 1950 Unknown [id number] 2.16.840.1.649843.3.579.2 .593 1949 Unknown [id number] 2.16.840.1.517240.3.579.2 .593 1949 Unknown [id number] 2.16.840.1.344761.3.579.2 .593 1949 Unknown [id number] 2.16.840.1.257074.3.579.2 .593 1949 Unknown [id number] 2.16.840.1.749768.3.579.2 .593 1949 Unknown [id number] 2.16.840.1.161220.3.579.2 .593 1949 Unknown [id number] 2.16.840.1.358222.3.579.2 .727 1949 Unknown [id number] 2.16.840.1.056293.3.579.2 .727 1949 Unknown [id number] 2.16.840.1.674235.3.579.2 .727 1949 Unknown [id number] 2.16.840.1.824855.3.579.2 .727 1949 Unknown [id number] 2.16.840.1.828093.3.579.2 .727 1949 Unknown [id number] 2.16.840.1.071429.3.579.2 .72 1949 Unknown [id number] 2.16.840.1.005473.3.579.2 1949 Unknown [id number] 2.16.840.1.639134.3.579.2 1949 Unknown [id number] 2.16.840.1.247370.3.579.2 1949 Unknown [id number] 2.16.840.1.882786.3.579.2 1949 Unknown [id number] 2.16.840.1.935625.3.579.2 1949 Unknown [id number] 2.16.840.1.151163.3.579. 1949 Unknown [id number] 2.16.840.1.211563.3.579. 1949 Unknown [id number] 2.16.840.1.473512.3.579.2 1949 Unknown [id number] 2.16.840.1.636356.3.579. 1949 Unknown [id number] 2.16.840.1.678877.3.579.2 1949 Unknown [id number] 2.16.840.1.559493.3.579.2 1949 Unknown [id number] 2.16.840.1.680465.3.579.2 1949 Unknown [id number] 2.16.840.1.192375.3.579.2 1949 Unknown [id number] 2.16.840.1.776851.3.579.2 1949 Unknown [id number] 2.16.840.1.261723.3.579.2 1949 Unknown [id number] 2.16.840.1.340870.3.579.2 .727 1949 Unknown [id number] 2.16.840.1.065473.3.579.2 .727 1949 Unknown [id number] 2.16.840.1.215383.3.579.2 .727 1949 Unknown [id number] 2.16.840.1.294752.3.579.2 .727 1949 Unknown [id number] 2.16.840.1.275326.3.579.2 .727 1949 Unknown [id number] 2.16.840.1.055411.3.579.2 .727 1949 Unknown [id number] 2.16.840.1.384786.3.579.2 .727 1949 Unknown [id number] 2.16.840.1.678265.3.579.2 .727 Medicare Self Pay [id number] Private Health Insurance Self Pay [id number] Unknown Unknown Self Pay [id number] Unknown [id number] 2.16.840.1.330266.3.579.2 .531 Social History Date Type Detail Facility Start: 12-06-2020 End: 06-09-2023 Tobacco smoking status NHIS Ex-smoker (finding) [facility] Start: 1950 Sex Assigned At Male [facility] End: 07-03-2017 History of tobacco use Current smoker [facility] End: 07-03-2017 History of tobacco use Cigarette Smoker [facility] Start: 11-10-2018 End: 05-29-2020 Cigarettes smoked current (pack per day) - Reported 1.5 [facility] Start: 11-10-2018 Tobacco use and exposure Smokeless tobacco non-user [facility] Start: 11-14-2020 End: 04-30-2021 Alcohol intake Current non-drinker of alcohol (finding) [facility] Start: 02-21-2021 End: 01-09-2022 Exposure to SARS-CoV-2 (event) Not sure [facility] Start: 12-22-2021 End: 01-01-2022 Exposure to SARS-CoV-2 (event) Yes [facility] Start: 05-29-2020 End: 11-14-2020 Sex [facility]igned At Male [facility] Tobacco smoking status Never [facility] Start: 12-11-2021 Gender identity Identifies as male gender (finding) [facility] Functional Status Date Assessment Result Facility 03-17-2023 Functional Status N/A [facility] 12-09-2022 Functional Status N/A [facility] Clinical Notes 03-23-2021 to 05-06-2023 Note [...] changes in symptoms and/or problems with treatment [place] Other 09-25-2023 Hospital Discharge instructions Patient Education [...] if anything looks unusual. Men with a gywyzh-oyyf-zxwovz risk for skin cancer may want to see a loan documentation specialist (career and guidance counselor) for an annual body check. What are the benefits of screening? Cancer screening is done to look for cancer in the very early stages, before it spreads and becomesharder to treat and before you would start to notice symptoms. Finding cancer early improves the chances of successful treatment. It may save your life. Where to find more information [employer]: www.cancer.org Centers for Disease Control and Prevention: www.cdc.gov National Cancer [place]: www.cancer.gov Contact a health care provider if: [...] provider. Document Revised: 11/05/2021 Document Reviewed: 05/05/2020 [employer] Patient Education 2022 Search to Phone. Follow Up Care 12/09/2022 10:37:49 With:ALLIE CHOPRA, Jeremy Avery, URL Address: [facility] [address] [place] [address]- [phone] When: Unknown [facility] [place] 06-19-2023 Hospital Discharge instructions Patient Education 12/09/2022 [...] if anything looks unusual. Men with a iylmcs-zvgt-ilmhsp risk for skin cancer may want to see a loan documentation specialist (career and guidance counselor) for an annual body check. What are the benefits of screening? Cancer screening is done to look for cancer in the very early stages, before it spreads and becomesharder to treat and before you would start to notice symptoms. Finding cancer early improves the chances of successful treatment. It may save your life. Where to find more information [employer]: www.cancer.org Centers for Disease Control and Prevention: www.cdc.gov National Cancer [place]: www.cancer.gov Contact a health care provider if: [...] provider. Document Revised: 11/05/2021 Document Reviewed: 05/05/2020 [employer] Patient Education 2022 Search to Phone. Follow Up Care 11/13/2022 13:35:16 With:ALLIE CHOPAR, Jeremy Avery, URL Address: [facility] [address] [place] [address]- When: Unknown [facility] [place] 07-20-2022 NotePatient Outreach (UROLMN) MILAN CAMARILLO ([id number]) 1950 M Date Time Provider Department 01/09/22 [...] for genitourinary condition [Z13.89] Order(s):URINALYSIS, REFLEX MICROSCOPIC [[id number]] Order #: [id number] Prescriptions as of 01/14/2022 - acetaminophen (TYLENOL) [...] tablet 50 mg daily at bedtime. - Zwolle-3 Fatty Acids, FISH OIL, (FISH OIL) 360-1,200 [...] (FLONASE) 50 mcg/actuation nasal spray Use 1 [place] in each nostril once daily. Problem List [...] Obesity (BMI 30.0-34.9) [E66.9] Encounter Status:Closed by BellaDatiUSER on 01/14/22[facility] 01-09-2022 NoteHNO ID: [id number] Author: Jesus Ram MD Service: ? Author [...] continued fevers, and instructed to return to [facility] ED for assessment and treatment. Found to [...] oz water x 4 throughout the day. Milna Camarillo states that he is still feeling [...] tablet 50 mg daily at bedtime. - Zwolle-3 Fatty Acids, FISH OIL, (FISH OIL) 360-1,200 [...] (FLONASE) 50 mcg/actuation nasal spray Use 1 [place] in each nostril once daily. No current [...] <0.13 04/02/2018 0.010 09/01/2017 (more content not included)...[facility]07-20-2022 History of Present illness Narrative* Jesus [...] with continued fevers, and instructed to return[facility] for assessment and treatment. Found to [...] mg tablet 50 mg daily at bedtime. Zwolle-3 Fatty Acids, FISH OIL, (FISH OIL) 360-1,200 [...] (FLONASE) 50 mcg/actuation nasal spray Use 1 [place] in each nostril once daily. No current [...] need for ISC, [facility]. Received IV abx at that visit and discharged, had continued fevers,and instructed to return to [facility] ED for assessment and treatment. Found to [...] Signature: Jesus Ram MD [facility] NoteHNO ID: [id number] Author: Vale Dunn, VENUE ATTENDANT Service: Respiratory Therapy Author Type: Registered Resp [...] SIGNATURE: Vale Dunn RRT PATIENT NAME: Milan Avery Rabia DATE: January 01, 2022 TIME: 4:54 PM PAGER/CONTACT #: [id number] [facility] Miscellaneous Notes* Telephone Encounter - Rubén [...] symptoms. Left voicemail, requesting call back at [phone]. Rubén Cruz APRN.CNP * Telephone Encounter - Rubén Cruz APRN.CNP - 12/31/2021 12:45 PM EDT ----- Message from Sarahy Ervin sent at 12/31/2021 8:47 AM EDT ----- [...] based on the smell. documented in this encounterPrem[facility]-2022 Miscellaneous Notes* Telephone Encounter - Ryan Okeefe [...] I recommended that he come to the [facility] ED today. He expressed understanding and agreement with the plan. Ryan Okeefe Jr., MD Reconstructive Urology Fellow documented in this encounterPrem[facility]07-05-2022 NoteHNO ID: [id number] Author: Vannesa Crump APRN.CNP Service: ? Author Type: Nurse Practitioner Type: [...] tablet 50 mg daily at bedtime. - Zwolle-3 Fatty Acids, FISH OIL, (FISH OIL) 360-1,200 [...] (FLONASE) 50 mcg/actuation nasal spray Use 1 [place] in each nostril once daily. No current [...] has ISC catheters i (more content not included)...[facility] 12-21-2021 NoteHNO ID: [id number] Author: Robny Urbina APRN.LABORER WHARF Service: ? 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 NoteHNO ID: [id number] Author: Marcy Donahue APRN.NURSE TECH Service: ? Author Type: Nurse Practitioner Type: Progress Notes Filed: 12/12/2021 6:30 PM Note Text: UROLOGY SURGICAL HANDP SERVICE DATE: 12/12/2021 SERVICE TIME: 2:25 PM REFERRING PROVIDER: Jesus Ram [address] [facility] [address] PCP: Catracho Jiménez MD GENDER: SUBJECTIVE CHIEF [...] hearing. Cardiovascular: No history of angina, CHF, [place], cardiac surgery of stents. 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 documented in this encounterPrem[facility]22 History of Present illness Narrative* Mracy Donahue APRN.CNP - 12/12/2021 2:20 PM EDT UROLOGY SURGICAL H&P SERVICE DATE: 12/12/2021 SERVICE TIME: 2:25 PM REFERRING PROVIDER: Jesus Ram [facility] [facility] [address] PCP: Catracho Jiménez MD GENDER: SUBJECTIVE CHIEF [...] hearing. Cardiovascular: No history of angina, CHF, UT, cardiac surgery of stents. 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 Zwolle-3 Fatty Acids, FISH OIL, (FISH OIL) 360-1,200 [...] (FLONASE) 50 mcg/actuation nasal spray Use 1 [place] in each nostril once daily. No current [...] 12, 2021 TIME: 2:25 PM PAGER/CONTACT #: [facility] PRE-OP NOTE Milan Camarillo is a 71 year old male. Pre-op Date: December 12, 2021 Date of Procedure: 12/21/2021 Does the patient have an active COVID-19 test in [facility]? Yes, will complete self- check COVID test [...] COVID testing, and urine culture. Marcy Donahue APRN.NURSE TECH documented in this encounterPremier Health [facility]06-22-2022 NotePatient Outreach (UROLMN) RABIAMILAN ([id number]) 1950 M Date Time Provider Department 12/12/21 [...] Date Reviewed: 12/12/2021 Reviewed by: Marcy Donahue APRN.NURSE TECH - Fully Assessed Visit Diagnosis:Screening for genitourinary condition [Z13.89] Order(s):URINALYSIS, REFLEX MICROSCOPIC [[id number]] Order #: [id number] URINALYSIS, REFLEX MICROSCOPIC [[id number]] Order #: [id number]. #:[id number] Prescriptions as of 12/17/2021 - aspirin 81 [...] tablet 50 mg daily at bedtime. - Zwolle-3 Fatty Acids, FISH OIL, (FISH OIL) 360-1,200 [...] (FLONASE) 50 mcg/actuation nasal spray Use 1 [place] in each nostril once daily. Problem List [...] Obesity (BMI 30.0-34.9) [E66.9] Encounter Status:Closed by Lettuce, PRODUSER on 12/17/21[facility] 10-25-2021 Miscellaneous Notes* Telephone Encounter - Rubén Cruz APRN.NURSE TECH - 10/25/2021 3:22 PM EDT Called Milan [...] in. Advised that he will go to [facility] ([facility] which is west of [facility] and has its own parking garage. Encouraged him to call back if he has other questions before 10/30/2021. Rubén Cruz APRN.CNP * Telephone Encounter - Rubén Cruz APRN.CNP - 10/25/2021 3:16 PM EDT ----- Message from Sarahy Ervin sent at 10/25/2021 10:13 AM EDT ----- Regarding: New Medication Contact: Patient is scheduled with EVELINA for surgery on 10/30. He just started on Icamoxclav (abx for an eye infection) Is he ok to take that? documented in this encounterPremier Health [facility]05-03-2022 Instructions* Patient Instructions* Suri Whatley APRN.CNP - 10/23/2021 12:05 PM EDT PATIENT PREOPERATIVE INSTRUCTIONS Jesus Ram, * has scheduled you for your procedure at this surgery center: [facility] [place] Scheduling Office: [phone] --[address] [place] [address]. Please read below carefully for your personalized [...] Procedures: - YOU MUST HAVE A RESPONSIBLE EMPLOYEE DEVELOPMENT SPECIALIST TAKE YOU HOME. A FIRMWARE ENGINEER OR EDI ANALYST CANNOT BE MADE A RESPONSIBLE EMPLOYEE DEVELOPMENT SPECIALIST. - We recommend that a responsible person [...] call the Friday before. Your surgeon s web offset press feeder will tell you what time to call the office. - If you have not reached the departmental web offset press feeder by 5 P.M., call [phone] after 5 P.M. the day before your surgery. Please be aware that emergency situations arise, which may delay or change your surgical time. If this happens, we will notify you as soon as possible and regret any inconvenience. If you already have an Advance Directive, please fax a copy to [phone] or email to for it to be [...] your chart that day. documented in this encounterPremier Health [facility]05-03-2022 History and physical note * Suri Whatley APRN.PERICO - 10/23/2021 11:50 AM EDT Images from [...] fibrillation, CAD, chest pain, CHF, DVT/PE, recent UT and murmur/valvular heart disease. GI: Positive for: [...] 50 mg daily at bedtime. Taking Yes Zwolle-3 Fatty Acids, FISH OIL, (FISH OIL) 360-1,200 [...] (FLONASE) 50 mcg/actuation nasal spray Use 1 [place] in each nostril once daily. 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 Assessment DM (diabetes mellitus) ([facility]) Assessment: managed with oral med reports FBG 90's Monitored by PCP HTN (hypertension) Assessment: Managed with med Date: BP: 10/23/2021 142/65 Stable. Swelling Assessment: managed with Lasix daily Stable. COPD (chronic obstructive pulmonary disease) ([facility]) Assessment: managed with inhaler and supplemental oxygen [...] of difficult airway No abnormal airway history [id number] Score: Age: 65-74 Sex: Male Hypertension history: [...] SIGNATURE: Suri Whatley APRN.CNP PATIENT NAME: Milan Avery Rabia DATE: October 23, 2021 TIME: 11:50 AM PAGER/CONTACT #: documented in this encounterPremier Health [facility] Center04-17-2022 NoteHNO ID: [id number] Author: Jesus Ram MD Service: ? Author Type: Physician Type: Progress Notes Filed: 10/07/2021 8:29 PM Note Text: [facility] PHYSICIAN INTERPRETATION: Urodynamics [...] bladder emptying; Large bladder capacity Jesus Ram [facility]04-13-2022 NoteHNO ID: [id number] Author: Kamilah Limon RN Service: ? Author [...] Care Visit completed when applicable. Kamilah Limon RNThe [facility]04-[facility]-2022 NoteHNO ID: [id number] Author: Jesus Ram MD Service: ? Author [...] Condition: satisfactory Medications:Cipro 500 mg x [address] [facility] History of Present illness Narrative* Kamilah [...] applicable. Kamilah Limon RN documented in this encounterPremier Health [facility]04-13-2022 Nurse Note* Thao Singer RN - 10/03/2021 3:18 PM EDT [facility] URODYNAMICS LAB URODYNAMIC [...] given. Thao Singer RN documented in this encounterPremier Health [facility] Center04-13-2022 Nurse Note* Kamilah Limon RN - 10/03/2021 [...] Education Session: None Instruction Provided To: Patient Radio Message Router Present: not applicable Discipline: Nursing Learning Topic: SURVIVAL SKILLS: Complication Prevention Symptom Management Patient Evaluation: Verbalizes understanding: Yes Supplemental Material Given: Written Material Instructed By Kamilah Limon RN In Department Urology . documented in this encounterPremier Health [facility]04-13-2022 Procedure note* Jesus Ram MD - 10/03/2021 [...] 1 Jesus Ram MD documented in this encounterPremier Health [facility] Center11-08-2021 NoteHNO ID: [id number] Author: Jesus Ram MD Service: ? Author Type: Physician Type: Progress Notes Filed: 04/30/2021 4:53 PM Note Text: [facility] NEW PATIENT HISTORY AND PHYSICAL EXAM PATIENT INFO: Milan Camarillo 70 year old REFERRING M.D.: Rasheed Hanks [address] [facility] [address] HISTORY: Milan Camarillo is a 70 year [...] UDS. Milan Camarillo had recent MRI at [facility] in [place] for renal mass. Milan Camarillo reports lots [...] (COZAAR) 100 mg tablet 50 mg. - Zwolle-3 Fatty Acids, FISH OIL, (FISH OIL) 360-1,200 [...] (FLONASE) 50 mcg/actuation nasal spray Use 1 [place] in each nostril once daily. No current facility-administered medications for this visit. MEDICATION ALLERGIES: ALLERGIES Allergen Reactions - Glucosamine Anaphylaxis, Unknown - Iv Dye [Iodinated C* Hives - Shellfish Containin* Hives - Niacin Hives, Rash PAST MEDICAL HISTORY Diagnosis Date - Arthritis - Chronic back pain - COPD (chronic obstructive pulmonary disease) ([facility]) - DM (diabetes mellitus) ([facility]) - HTN (hypertension) - Hypercholesteremia - Panic [...] diarrhea since rec (more content not included)... [facility]11-08-2021 NotePatient Outreach (ROSALIA) MILAN CAMARILLO ([id number]) 1950 M Date Time Provider Department 04/30/21 [...] [Z13.89] Order(s):URINALYSIS, DIPSTICK ONLY [SQUA] Order #: [id number]. #:[id number] Prescriptions as of 05/03/2021 - metformin HCl [...] (COZAAR) 100 mg tablet 50 mg. - Zwolle-3 Fatty Acids, FISH OIL, (FISH OIL) 360-1,200 [...] (FLONASE) 50 mcg/actuation nasal spray Use 1 [place] in each nostril once daily. Problem List As Of Date 04/30/2021 Noted Resolved Prostate cancer (HCC) [C61] 05/23/2016 Renal mass [N28.89] 03/23/2021 DM (diabetes mellitus) (HCC) [E11.9] Incomplete bladder emptying [R33.9] 04/30/2021 Recurrent urinary tract infection [N39.0] 04/30/2021 Personal history of prostate cancer [Z85.46] 04/30/2021 Chronic back pain [M54.9, G89.29] 04/30/2021 Encounter Status:Closed by LettuceBHUPENDRAUSEBennie on 05/03/21[facility] 04-17-2021 NoteHNO ID: [id number] Author: Rasheed Hanks MD Service: ? Author Type: Physician Type: Progress Notes Filed: 04/19/2021 1:48 PM Note Text: VIRTUAL VISIT PROGRESS NOTE This is a virtual visit using Futubra video visit. It required patient-provider interaction for [...] (COZAAR) 100 mg tablet 50 mg. - Zwolle-3 Fatty Acids, FISH OIL, (FISH OIL) 360-1,200 [...] (FLONASE) 50 mcg/actuation nasal spray Use 1 [place] in each nostril once daily. No current [...] if any reasonable optio (more content not included)...[facility]10-22-2021 NoteHNO ID: [id number] Author: RT Yuliet(R) Service: ? Author Type: [...] Renal SIGNATURE: [facility] PATIENT NAME: Milan Camarillo DATE: April 13, 2021 TIME: 9:38 [facility]10-01-2021 NotePatient Outreach (UROLMN) MILAN CAMARILLO ([id number]) 1950 M Date Time Provider Department 03/23/21 [...] [Z13.89] Order(s):URINALYSIS, DIPSTICK ONLY [SQUA] Order #: [id number]. #:[id number] Prescriptions as of 03/26/2021 - diphenhydrAMINE (BENADRYL) [...] (COZAAR) 100 mg tablet 50 mg. - Zwolle-3 Fatty Acids, FISH OIL, (FISH OIL) 360-1,200 [...] (FLONASE) 50 mcg/actuation nasal spray Use 1 [place] in each nostril once daily. Problem List As Of Date 03/23/2021 Noted Resolved Prostate cancer (HCC) [C61] 05/23/2016 Renal mass [N28.89] 03/23/2021 Encounter Status:Closed by Lettuce, QVIVOUSER on 03/26/21[facility] 03-23-2021 NoteHNO ID: [id number] Author: Antonette Segura MD Service: ? Author Type: Resident Type: Progress Notes Filed: 03/23/2021 12:17 PM Note Text: [facility] NEW PATIENT [...] No results found for: CREAT URINALYSIS: Specific [place], Ur Date Value Ref Range Status 03/23/2021 [...] (COZAAR) 100 mg tablet 50 mg. - Zwolle-3 Fatty Acids, FISH OIL, (FISH OIL) 360-1,200 [...] (FLONASE) 50 mcg/actuation nasal spray Use 1 [place] in each nostril once daily. - cetirizine [...] GENITOURINARY: See HPI. MUSCULOSKELETA (more content not included)...[facility] + Plan note Future Appointments Appointment Date:10/07/2022 09:00:00 AM Scheduled Provider:Raegan March MD Location:[facility] Appointment Type: Open Diagnostic Tests Pending * Basic Metabolic Panel 08/26/22 * PSA Screen, Total 08/26/22 Future Scheduled Tests Radiology* XR Spine Lumbosacral Minimum 4 Views [facility] App[facility]ments Appointment Date:12/09/2022 09:30:00 AM Scheduled Provider:Jeremy KELLEY MD Location:[facility] Appointment Type:URO Office Visit Appointment Date:12/30/2022 07:00:00 AM Scheduled Provider:Raegan March MD Location:[facility] Appointment Type: Open Appointment Date:11/26/2023 08:00:00 AM Scheduled Provider: Location:[facility] Appointment Type:FM Medicare Wellness Subsequent Diagnostic Tests Pending * HCV Antibody RFX to Quant PCR 11/25/22 [facility] Future Appointments Appointment Date:12/30/2022 07:00:00 AM Scheduled Provider:Raegan March MD Location:[facility] Appointment Type: Open Appointment Date:03/17/2023 08:45:00 AM Scheduled Provider:Jeremy KELLEY MD Location:[facility] Appointment Type:URO Office Visit Appointment Date:11/26/2023 08:00:00 AM Scheduled Provider: Location:[facility] Appointment Type:FM Medicare Wellness Subsequent [facility] evaluation + Plan note Future Appointments Appointment Date:09/15/2023 09:15:00 AM Scheduled Provider:Jeremy KELLEY MD Location:[facility] Appointment Type:URO Office Visit Appointment Date:11/26/2023 08:00:00 AM Scheduled Provider: Location:[facility] Appointment Type: Medicare Wellness Subsequent Diagnostic Tests Pending * PSA Total 03/17/23 [facility] evaluation + Plan note Future Appointments Appointment Date:09/15/2023 09:15:00 AM Scheduled Provider:Jeremy [facility]ELLEY [facility] Type:[facility]O Office Visit Appointment Date:11/26/2023 08:00:00 AM Scheduled [facility] Wellness Subsequent [facility] Future Appointments Appointment Date:09/15/2023 09:15:00 AM Scheduled Provider:Jeremy KELLEY MD [facility] Type:URO Office Visit Appointment Date:11/26/2023 08:00:00 AM Scheduled Provider[facility] Type: Medicare Wellness Subsequent [facility] Future Appointments Appointment Date:09/15/2023 09:15:00 AM Scheduled Provider:Jeremy KELLEY MD [facility] Type:URO Office Visit Appointment Date:11/26/2023 08:00:00 AM Scheduled Provider[facility] Type: Medicare Wellness Subsequent Diagnostic Tests Pending * Urine Culture [facility] Future Appointments Appointment Date:09/15/2023 09:15:00 AM Scheduled Provider:Jeremy KELLEY MD [facility] Type:URO Office Visit Appointment Date:11/26/2023 08:00:00 AM Scheduled Provider: [facility] Type: Medicare Wellness Subsequent Diagnostic Tests Pending * Urine Culture 07/10/23 [facility] [place] [facility] assessment information available [facility] [place] [facility]* Diagnosis Retention of urine- Primary Retention of urine, unspecified documented in this encounter [facility] [place] [facility]* Diagnosis Incomplete bladder emptying- Primary Recurrent urinary tract infection Urinary tract infection, site not specified BPH with urinary obstruction Hypertrophy of prostate with urinary obstruction and other lower urinary tract symptoms (LUTS) [facility] [place] [facility]* Diagnosis Preop examination- Primary Preoperative examination, [...] tract symptoms (LUTS) documented in this encounter [facility] [place] [facility]* Diagnosis BPH with obstruction/lower urinary tract symptoms- Primary Hypertrophy of prostate with urinary obstruction and other lower urinary tract symptoms (LUTS) Incomplete bladder emptying BPH with obstruction/lower urinary tract symptoms Hypertrophy of prostate with urinary obstruction and other lower urinary tract symptoms (LUTS) documented in this encounter [facility] [place] [facility]* Diagnosis Pre-op exam- Primary Preoperative examination, unspecified BPH with obstruction/lower urinary tract symptoms Hypertrophy of prostate with urinary obstruction and other lower urinary tract symptoms (LUTS) Pre-op testing Preoperative examination, unspecified BPH with obstruction/lower urinary tract symptoms Hypertrophy of prostate with urinary obstruction and other lower urinary tract symptoms (LUTS) documented in this encounter [facility] [place] [facility]* Diagnosis Screening for genitourinary condition Screening for other and unspecified genitourinary condition BPH with obstruction/lower urinary tract symptoms Hypertrophy of prostate with urinary obstruction and other lower urinary tract symptoms (LUTS) documented in this encounter [facility] [place] [facility]* Diagnosis Incomplete bladder emptying- Primary BPH with obstruction/lower urinary tract symptoms Hypertrophy of prostate with urinary obstruction and other lower urinary tract symptoms (LUTS) Recurrent urinary tract infection Urinary tract infection, site not specified documented in this encounter [facility]* Diagnosis Other specified disorders of kidney and ureter documented in this encounter [facility] general Narrative - Reported* Type Description Date Medical History hyperlipidemia Medical History hypertension Medical History COPD Medical History restless leg syndrome Medical History restrictive pulmonary defect Surgical History appendectomy Surgical History lumbar fusion Hospitalization History see above [place] Other Hospital course Narrative No data available for this section [facility] Discharge instructions No data available for this section [facility] No data available for this section [facility] for referral (narrative)* Outpatient Procedure (Routine) - Pending Review Specialty Diagnoses / Procedures Referred By Pete coffman Referred To [facility] Diagnoses Preop examination BPH with obstruction/lower urinary tract symptoms Type 2 diabetes mellitus without complication, without long-term current use of insulin (HCC) Hypertension, unspecified type Swelling Chronic obstructive pulmonary disease, unspecified COPD type (HCC) Hypercholesteremia On supplemental oxygen therapy Former smoker Obesity (BMI 30.0-34.9) Procedures ECG COMPLETE ECG ROUTINE ECG W/LEAST 12 LDS W/I&R Suri Whatley APRN.CNP [id number] [facility] [place] [address] Referral ID Status Reason Start Date Expiration Date Visits Requested Visits Authorized [id number] Pending Review Auto-Generat ed Referral 10/23/2021 10/23/2022 1 1 [facility] for referral (narrative)* Diagnostic Procedure Only (Routine) - Closed Specialty Diagnoses / Procedures Referred By Pete coffman Referred To Contact MR IMAGING Diagnoses Other specified disorders of kidney and ureter Procedures MRI KIDNEY WO/W IVCON MRI,ABDOMEN,W&WO Rasheed Cooper MD [address] [address] [facility] Imaging [place] [address] Referral ID Status Reason Start Date Expiration Date Visits Re quested Visits Authorized [id number] Closed 04/13/2021 05/13/2021 1 1 [facility] for visit Narrative* Diagnostic Procedure Only (Routine) - Closed Specialty Diagnoses / Procedures Referred By Pete coffman Referred To Contact Urology / UROLOGY Diagnoses cysto per staff message Procedures CYSTOSCOPY Jesus Ram MD [address] [place] [address] Jesus Ram MD [address] [place] [address] Referral ID Status Reason Start Date Expiration Date V isits Requested Visits Authorized [id number] Closed Financial Clearance Required - OON Payor Patient Cleared INN/SMCP Payor Auth Obtained 10/03/2021 11/02/2021 1 1 [facility] N[facility]* Diagnostic Procedure Only (Routine) - Closed Specialty Diagnoses / Procedures Referred By Contac t Referred To Contact MR IMAGING Diagnoses Other specified disorders of kidney and ureter Procedures MRI KIDNEY WO/W IVCON MRI,ABDOMEN,W&WO Rasheed Cooper MD [address] [place] [address] Mr Imaging [facility] Referral ID Status Reason Start Date Expiration Date Visits Re quested Visits Authorized [id number] Closed 04/13/2021 05/13/2021 1 1 [facility] Summary Purpose Family History No Family History [...] Documents on File Type Date Recorded 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 Advance Directive(s) 10/09/2021 3:47 PM Documents on File Type Date Recorded 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 Advance Directive(s) 10/09/2021 3:47 PM Documents on File Type Date Recorded 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 DATE CREATED AUTHOR AUTHOR'S ORGANIZ ATION 12/12/2017 [facility] DATE CREATED AUTHOR AUTHOR'S ORGANIZ ATION 01/14/2022 [facility] DATE CREATED AUTHOR AUTHOR'S ORGANIZ ATION 09/14/2022 [facility] DATE CREATED AUTHOR AUTHOR'S ORGANIZ ATION 05/15/2023 [facility] DATE CREATED AUTHOR AUTHOR'S ORGANIZ ATION 08/05/2023 [facility] Goals (unrecognized section and content) [...] or prosecute any alcohol or drug abuse patient.[facility] CenterIn the event this information is protected by the Federal Confidentiality of Alcohol and Drug Abuse Patient Records regulations: The Federal rules restrict any use of the information to criminally investigate or prosecute any alcohol or drug abuse patient.[facility] CenterIn the event this information is protected by the Federal Confidentiality of Alcohol and Drug Abuse Patient Records regulations: The Federal rules restrict any use of the information to criminally investigate or prosecute any alcohol or drug abuse patient.[facility] CenterIn the event this information is protected by the Federal Confidentiality of Alcohol and Drug Abuse Patient Records regulations: The Federal rules restrict any use of the information to criminally investigate or prosecute any alcohol or drug abuse patient.[facility] CenterIn the event this information is protected by the Federal Confidentiality of Alcohol and Drug Abuse Patient Records regulations: The Federal rules restrict any use of the information to criminally investigate or prosecute any alcohol or drug abuse patient.[facility] CenterIn the event this information is protected by the Federal Confidentiality of Alcohol and Drug Abuse Patient Records regulations: The Federal rules restrict any use of the information to criminally investigate or prosecute any alcohol or drug abuse patient.[facility] CenterIn the event this information is protected by the Federal Confidentiality of Alcohol and Drug Abuse Patient Records regulations: The Federal rules restrict any use of the information to criminally investigate or prosecute any alcohol or drug abuse patient.[facility] CenterIn the event this information is protected by the Federal Confidentiality of Alcohol and Drug Abuse Patient Records regulations: The Federal rules restrict any use of the information to criminally investigate or prosecute any alcohol or drug abuse patient.[facility] CenterIn the event this information is protected by the Federal Confidentiality of Alcohol and Drug Abuse Patient Records regulations: The Federal rules restrict any use of the information to criminally investigate or prosecute any alcohol or drug abuse patient.[facility] CenterIn the event this information is protected by the Federal Confidentiality of Alcohol and Drug Abuse Patient Records regulations: The Federal rules restrict any use of the information to criminally investigate or prosecute any alcohol or drug abuse patient.[facility] CenterIn the event this information is protected by the Federal Confidentiality of Alcohol and Drug Abuse Patient Records regulations: The Federal rules restrict any use of the information to criminally investigate or prosecute any alcohol or drug abuse patient.[facility] CenterIn the event this information is protected by the Federal Confidentiality of Alcohol and Drug Abuse Patient Records regulations: The Federal rules restrict any use of the information to criminally investigate or prosecute any alcohol or drug abuse patient.[facility] Reason for Visit (unrecogniz ed section and content) Reason Comments Follow Up Specialty Diagnoses / Procedures Referred By Pete t Referred To Contact Urology / UROLOGY Diagnoses uds per staff message Procedures COMPLX CYSTOMETRO W/VOID PRESS&URETHRAL PROFILE COMPLEX UROFLOMETRY EMG STDS ANAL/URTL SPHNCTR OTH/THN NDL VOID PRESSURE STUDIES INTRAABDOMINAL URODYNAMICS MAIN Self [employer] [address] [place] [address] Referral ID Status Reason Start Date Expiration Date V isits Requested Visits Authorized [id number] Closed Financial Clearance Required - OON Payor Patient Cleared INN/SMCP Payor Auth Obtained 10/03/2021 11/02/2021 1 1 Specialty Diagnoses / Procedures Referred By Pete t Referred To Contact ANESTHESIOLOGY Diagnoses BPH with obstruction/lower urinary tract symptoms Procedures REFER TO PACC - PRE ANESTHESIA CONSULTATION CLINIC OFFICE/OUTPATIENT [facility] 60-74 MINUTES Jesus Ram MD [address] [place] [address] [facility] [address] [address] Referral ID Status Reason Start Date Expiration Date V isits Requested Visits Authorized [id number] Closed PCP Requested Referral 10/23/2021 11/22/2021 1 1 Reason Comments Patient Question Reason Comments Pre-Op Exam Reason Comments Surgical Followup Specialty Diagnoses / Procedures Referred By Pete coffman Referred To Contact Urology / UROLOGY Diagnoses ER follow up and removal of cath Procedures EST UROL Jesus Ram MD [address] [place] [address] Jesus Ram MD [address] [place] [address] Referral ID Status Reason Start Date Expiration Date Visits Requested Visits Authorized [id number] Waiting for Response Financial Clearance Required - OON Payor OON Notification Letter Patient Cleared - Admin/Supervisor [employer]/ Director advise to proceed 2 04/09/2022 1 1 Care Teams (unrecognized sec tion and content) 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 Start Date End Date Catracho Jiménez MD [address] [place] [address] PCP - General Family Practice 11/14/20 Jeremy Kelley MD [address] [place] [address] Urology 04/19/21 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 Start Date End Date Catracho Jiménez MD [address] [place] [address] PCP - General Family Practice 11/14/20 Jeremy Kelley MD [address] [place] [address] Urology 04/19/21 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 Start Date End Date Catracho Jiménez MD [address] [place] [address] PCP - General Family Practice 11/14/20 Jeremy Kelley MD [address] [place] [address] Urology 04/19/21 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 Start Date End Date Catracho Jiménez MD [address] [place] [address] PCP - General Family Practice 11/14/20 Jeremy Kelley MD [address] [place] [address] Urology 04/19/21 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 Start Date End Date Catracho Jiménez MD [address] [facility] [place] [address] PCP - General Family Practice 11/14/20 Jeremy Kelley MD [address] [place] [address] Urology 04/19/21 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 Start Date End Date Catracho Jiménez MD [address] [facility] [place] [address] PCP - General Family Practice 11/14/20 Jeremy Kelley MD [address] [facility] [place] [address] Urology 04/19/21 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 Start Date End Date Catracho Jiménez MD [address] [facility] [place] [address] PCP - General Family Practice 11/14/20 Jeremy Kelley MD [address] [facility] [place] [address] Urology 04/19/21 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 Start Date End Date Catracho Jiménez MD [address] [facility] [place] [address] PCP - General Family Practice 11/14/20 Jeremy Kelley MD [address] [place] [address] Urology 04/19/21 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 Start Date End Date Catracho Jiménez MD [address] [place] [place] [address] PCP - General Family Practice 11/14/20 Jeremy Kelley MD [address] [place] [address] Urology 04/19/21 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 Start Date End Date Catracho Jiménez MD [address] [place] [address] PCP - General Family Medicine 11/14/20 FOR [...] BE BASED ON THE PRIMARY CLINICAL RECORDS. [employer] [facility]. provides no warranty or guarantee of the accuracy or completeness of information in this document.
== END 2023-08-06 09:23 | disposition home or self-care (01) ==
LOC: CT 09:22
PROVIDERS: PCP Family Medicine; Visit Provider Internal Medicine
DX: R91.8 Other nonspecific abnormal finding of lung field (principal); Z87.891 Personal history of nicotine dependence
CPT/HCPCS: 71271

== ENCOUNTER 2024-01-20 11:46 | Outpatient (OUT) | payer MEDICARE, SELFPAY ==
[2024-01-20 14:20] LABS: Prostate Specific Antigen Dx <0.13 ng/mL (<=4.00)
== END 2024-01-20 11:47 | disposition home or self-care (01) ==
PROVIDERS: PCP Family Medicine; Visit Provider Urology
DX: Z85.46 Personal history of malignant neoplasm of prostate (principal)
CPT/HCPCS: 36415; 84153

== ENCOUNTER 2024-06-29 11:33 | Inpatient (IN) | payer MEDICARE, SELFPAY ==
[2024-06-29] VITALS (12 sets, daily range): BP systolic 130–161; BP diastolic 73–92; PULSE 79–108; TEMP 36.3–37.8; O2SAT 84–95; BMI 32.5; BMI 32.2
--- NOTE | 2024-06-29 11:59 | ECG_ITS ---
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
--- NOTE | 2024-06-29 11:59 | XR_ITS ---
The [address] [address] Patient Name: XIMENA CAMARILLO MRN: [id number] date: 1950 Sex: M Assigned Patient Location: ER Current Patient Location: ER Accession/Order Number: [id number] Exam Date: 06/29/2024 12:40 Report Date: 06/29/2024 13:01 At the request of: LM ROJO Procedure: XR chest 2V EXAMINATION: XR chest 2V HISTORY: cough, hypoxia COMPARISON: XR chest 06/09/2023 FINDINGS: LUNGS: Slight wall thickening of a few central bronchi. No patchy/focal infiltrates to suggest pneumonia. VASCULATURE: No increased pulmonary vasculature. PLEURA: No pneumothorax, effusion, or pleural thickening. CARDIAC: No cardiomegaly or cardiac silhouette abnormality. MEDIASTINUM: No visible mass or adenopathy. BONES: No fracture or visible bone lesion. OTHER: Negative. XR/XR chest 2V IMPRESSION: 1. Possible mild bronchiolitis. Electronically authenticated by: ISHA CHOPRA Date: 06/29/2024 13:01
--- NOTE | 2024-06-29 12:10 | ED.GENADUL1 ---
HPI HPI - General Adult General Chief complaint: Upper Respiratory Infection Stated complaint: SOB Time Seen by Provider: 06/29/24 11:47 Source: patient Mode of arrival: Wheelchair History of Present Illness HPI narrative: Patient presented to the emergency department for evaluation of shortness of breath. Patient states for the last 2 months has had issues with coughing, sputum production intermittently. States that a couple days ago he was at an emergency department, they did a chest x-ray and told him everything was fine and he did not have pneumonia and they discharged him. Patient states that since yesterday he just feels like he cannot breathe. Patient states that he feels weak, fatigued, cough, sputum production. Shortness of breath. States that he has a history of COPD, sleep apnea, supposed to be on oxygen at night during the day. Came to the room today because just cannot breathe. Related Data Home Medications ?Medication ?Instructions ?Recorded ?Confirmed atenolol 50 mg tablet 50 mg PO BIDWM 08/01/23 06/29/24 atorvastatin 40 mg tablet 40 mg PO DAILY@1700 08/01/23 06/29/24 furosemide 20 mg tablet 20 mg PO Q12H 08/01/23 06/29/24 imipramine HCl 50 mg tablet 50 mg PO BID 08/01/23 06/29/24 tamsulosin 0.4 mg capsule (Flomax) 0.4 mg PO DAILY 08/01/23 06/29/24 terazosin 2 mg capsule 2 mg PO DAILY 08/01/23 06/29/24 tiotropium 2.5 mcg-olodaterol 2.5 2 inh inhalation DAILY 08/01/23 06/29/24 mcg/actuation mist for inhalation (Stiolto Respimat) levofloxacin 750 mg tablet 750 mg PO DAILY 06/29/24 06/29/24 metformin 500 mg tablet 500 mg PO BIDWM 06/29/24 06/29/24 ropinirole 1 mg tablet 1 mg PO BID 06/29/24 06/29/24 sulfamethoxazole 800 1 tab PO DAILY 06/29/24 06/29/24 mg-trimethoprim 160 mg tablet Allergies Allergy/AdvReac Type Severity Reaction Status Date / Time Iodinated Contrast Media AdvReac Mild Verified 08/01/23 07:47 niacin AdvReac Mild Verified 08/01/23 07:53 shellfish derived AdvReac Mild Verified 08/01/23 07:47 Opioid HPI Opioid Management Most Recent Opioid Data: No Data to Display Review of Systems ROS Narrative Negative unless otherwise stated in the HPI [facility] Medical History (Updated 06/29/24 @ 15:01 by Godwin Turner MD) COPD (chronic obstructive pulmonary disease) ?J44.9 - Chronic obstructive pulmonary disease, unspecified (ICD-10) Social History Smoking status: Former smoker Little interest or pleasure in doing things: not at all Feeling down, depressed, or hopeless: not at all Exam Narrative Exam Narrative: General: NAD, AAOx3, no distress HEENT: NCAT, mmm Neck: Supple, no LAD, negative Kernig/Brudzinski, non meningeal, no bruit, no JVD Respiratory: No wheezing, diffuse rhonchi in all lung bee, speaks in full sentences, no tripod position, no accessory muscle use Skin: Warm, pink and dry Constitutional Vital Signs, click to edit/add: Last Vital Signs Temp 97.9 F 06/29/24 11:40 Pulse 91 H 06/29/24 14:40 Resp 24 H 06/29/24 14:40 BP 136/88 06/29/24 14:40 Pulse Ox 94 L 06/29/24 14:40 O2 Del Method Nasal Cannula 06/29/24 11:58 O2 Flow Rate 3 06/29/24 14:40 Course Vital Signs Vital signs: Vital Signs Temperature 97.9 F 06/29/24 11:40 Pulse Rate 85 06/29/24 11:40 Respiratory Rate 18 06/29/24 11:40 Blood Pressure 154/75 H 06/29/24 11:40 Pulse Oximetry 84 L 06/29/24 11:40 Oxygen Delivery Method Room Air 06/29/24 11:40 Temperature 97.9 F 06/29/24 11:40 Pulse Rate 91 H 06/29/24 14:40 Respiratory Rate 24 H 06/29/24 14:40 Blood Pressure 136/88 06/29/24 14:40 Pulse Oximetry 94 L 06/29/24 14:40 Oxygen Delivery Method Nasal Cannula 06/29/24 11:58 Oxygen Delivery Flow Rate 3 06/29/24 14:40 Medical Decision Making [facility] Narrative Medical decision making narrative: 1201 it was noted on arrival the patient was hypoxic, 84% on room air. Oxygen was placed 1457 D/w Dr. Wilkins. He is accepting admissiona t this time Clinical Impression: hypoxia, bronchiliolitis, uri Lab Data Labs: Lab Results 06/29/24 06/29/24 Range/Units 12:08 12:33 WBC 11.8 H (4.0-11.0) 10^3/uL RBC 4.80 (4.70-6.10) 10^6/uL Hgb 13.3 L (14.0-18.0) g/dL Hct 42.6 (42.0-54.0) % MCV 88.8 (80.0-94.0) fL MCH 27.7 (25.9-34.0) pg MCHC 31.2 (29.9-35.2) g/dL RDW 15.2 H (11.0-15.0) % Plt Count 212 (150-450) 10^3/uL MPV 10.2 (9.5-13.5) fL Neut % (Auto) 87.4 H (43.0-75.0) % Lymph % (Auto) 4.5 L (20.5-60.0) % Chaves % (Auto) 4.8 (1.7-12.0) % Eos % (Auto) 0.7 L (0.9-7.0) % Baso % (Auto) 0.3 (0.2-2.0) % Neut # (Auto) 10.3 H (1.4-6.5) 10^3/uL Lymph # (Auto) 0.5 L (1.2-3.8) 10^3/uL Chaves # (Auto) 0.6 (0.3-0.8) 10^3/uL Eos # (Auto) 0.1 (0.0-0.7) 10^3/uL Baso # (Auto) 0.0 (0.0-0.1) 10^3/uL Abs Immat Gran (auto) 0.27 H (0.00-0.03) 10^3/uL Imm/Tot Granulo (auto) 2.3 H (0.0-0.5) % PT 10.9 (9.0-11.6) sec INR 1.03 APTT 26.8 (22.3-36.2) sec Sodium 142 (136-145) mmol/L Potassium 4.2 (3.5-5.1) mmol/L Chloride 105 (98-107) mmol/L Carbon Dioxide 31.0 (21.0-32.0) mmol/L Anion Gap 10.2 BUN 13.0 (7.0-18.0) mg/dL Creatinine 1.29 (0.70-1.30) mg/dL Est GFR ( Amer) >60 (>=60 mL/min/1.73m^2) Est GFR (Non-Af Amer) 54 L (>=60 mL/min/1.73m^2) BUN/Creatinine Ratio 10.1 Glucose 127 H (74-106) mg/dL Calcium 8.9 (8.5-10.1) mg/dL Troponin I High Sens 5.8 (4.0-76.1) pg/mL NT-Pro-B Natriuret Pep 42.0 (<=900.0) pg/mL Influenza Type A Ag Negative Influenza Type B Ag Negative SARS-CoV-2 Ag (CV2AG) Negative (NEGATIVE) Discharge Plan Discharge Chief Complaint: Upper Respiratory Infection Patient Disposition: Admitted As Inpatient Time of Disposition Decision: 15:01 Prescriptions / Home Meds: No Action furosemide 20 mg tablet 20 mg PO Q12H atorvastatin 40 mg tablet 40 mg PO DAILY@1700 imipramine HCl 50 mg tablet 50 mg PO BID atenolol 50 mg tablet 50 mg PO BIDWM terazosin 2 mg capsule 2 mg PO DAILY tamsulosin [Flomax] 0.4 mg capsule 0.4 mg PO DAILY Stiolto Respimat 2.5-2.5 mcg/actuation mist 2 inh inhalation DAILY levofloxacin 750 mg tablet 750 mg PO DAILY Rx Instructions: FROM 06/25/24-07/02/24 metformin 500 mg tablet 500 mg PO BIDWM ropinirole 1 mg tablet 1 mg PO BID sulfamethoxazole-trimethoprim 800-160 mg tablet 1 tab PO DAILY Print Language: Citizen [place] Referrals: RAEGAN MARCH [Primary Care Provider] - 1 week
[2024-06-29 12:40] LABS: Basophils Percent Auto 0.3 % (0.2-2.0); Eosinophils Absolute Auto 0.1 10^3/uL (0.0-0.7); Eosinophils Percent Auto 0.7 % (0.9-7.0); Hematocrit 42.6 % (42.0-54.0); Hemoglobin 13.3 g/dL (14.0-18.0); Immature Granulocytes Abs Auto 0.27 10^3/uL (0.00-0.03); Immature Granulocytes Pct Auto 2.3 % (0.0-0.5); Lymphocytes Absolute Auto 0.5 10^3/uL (1.2-3.8); Lymphocytes Percent Auto 4.5 % (20.5-60.0); Mean Corpuscular HGB Conc 31.2 g/dL (29.9-35.2); Mean Corpuscular Hemoglobin 27.7 pg (25.9-34.0); Mean Corpuscular Volume 88.8 fL (80.0-94.0); Mean Platelet Volume 10.2 fL (9.5-13.5); Monocytes Absolute Auto 0.6 10^3/uL (0.3-0.8); Monocytes Percent Auto 4.8 % (1.7-12.0); Neutrophils Absolute Auto 10.3 10^3/uL (1.4-6.5); Neutrophils Percent Auto 87.4 % (43.0-75.0); Platelet Count 212 10^3/uL (150-450); Red Cell Distribution Width 15.2 % (11.0-15.0); White Blood Count 11.8 10^3/uL (4.0-11.0)
[2024-06-29 12:48] LABS: Influenza Virus A Antigen Negative; Influenza Virus B Antigen Negative; Internal Control Within Normal Limits; SARS-CoV-2 Ag NEGATIVE (NEGATIVE)
[2024-06-29 12:56] LABS: INR 1.03; Partial Thromboplastin Time 26.8 sec (22.3-36.2); Prothrombin Time 10.9 sec (9.0-11.6)
[2024-06-29 13:27] LABS: Anion Gap 10.2; BUN Creatinine Ratio 10.1; Calcium 8.9 mg/dL (8.5-10.1); Chloride 105 mmol/L (98-107); Estimated GFR (African America >60 (>=60 mL/min/1.73m^2); Estimated GFR (Non-African Ame 54 (>=60 mL/min/1.73m^2); Glucose 127 mg/dL (74-106); Potassium 4.2 mmol/L (3.5-5.1); Sodium 142 mmol/L (136-145); Troponin I High Sensitivity 5.8 pg/mL (4.0-76.1)
[2024-06-29] MEDS: CEFTRIAXONE 1,000 MG in 0.9 % SODIUM CHLORIDE 50 ML 100 MG IV (14:18)
[2024-06-29] MEDS: AZITHROMYCIN 500 MG in 0.9 % SODIUM CHLORIDE 250 ML 250 MG IV (14:35)
[2024-06-29] MEDS: ALBUTEROL SULFATE 2.5 MG/3 ML VIAL NEB IH (14:41)
[2024-06-29] MEDS: METHYLPREDNISOLONE SOD SUCC PF 40 MG/ML VIAL IVP (17:27)
[2024-06-29] MEDS: ENOXAPARIN SODIUM 40 MG/0.4 ML SYRINGE SUBQ (17:27)
[2024-06-29] MEDS: ACETAMINOPHEN 325 MG TABLET 650 MG PO (17:27)
[2024-06-29] MEDS: LACTATED RINGER'S SOLUTION 1,000 ML 125 ML IV (17:27)
--- NOTE | 2024-06-29 17:48 | PM.HP ---
HPI H&P: HPI History of Present Illness Chief complaint: SOB URI HYPOXIA Narrative: 73 y o male presented to ED with one week hx of worsening SOB with wheezing and dry cough. He denies fever/chills but feels tired/weak overall. He has had no recent COPD exacerbations and does not require O2. Upon arrival, patient is considerably SOB, with labored breathing and also noted to have hypoxia with Pulse Ox as low as 85% on RA. He tested negative Influenza, COVID. CXR is concerning for possible bronchiolitis. Patient was treated in ED with Duoneb and Solumedrol and felt a little better but still quite dyspneic at rest and could not hold a conversation. Opioid HPI Opioid Management Most Recent Pain and Opioid Data: Last Pain Assessment 06/29/24 17:23 Last MAR Pain Assessment 06/29/24 17:27 Last ORT Total Score 3 06/29/24 16:04 06/29/24 Last ORT Risk Category Low Risk 06/29/24 16:04 06/29/24 Review of Systems ROS Status of ROS 10 or more systems reviewed and unremarkable except as noted in history and below PFSH [facility] Medical History (Updated 06/29/24 @ 17:54 by Shaikh Franky MD) History of prostate cancer ?Z85.46 - Personal history of malignant neoplasm of prostate (ICD-10) History of recurrent UTI (urinary tract infection) ?Z87.440 - Personal history of urinary (tract) infections (ICD-10) Restless leg ?G25.81 - Restless legs syndrome (ICD-10) Diabetes ?E11.9 - Type 2 diabetes mellitus without complications (ICD-10) Chronic GERD ?K21.9 - Gastro-esophageal reflux disease without esophagitis (ICD-10) Sleep apnea ?G47.30 - Sleep apnea, unspecified (ICD-10) History of TIA (transient ischemic attack) ?Z86.73 - Personal history of transient ischemic attack (TIA), and cerebral infarction without residual deficits (ICD-10) Hyperlipidemia ?E78.5 - Hyperlipidemia, unspecified (ICD-10) Hypertension ?I10 - Essential (primary) hypertension (ICD-10) COPD (chronic obstructive pulmonary disease) ?J44.9 - Chronic obstructive pulmonary disease, unspecified (ICD-10) Surgical History (Updated 06/29/24 @ 17:02 by Carmen Carlos RN) History of appendectomy ?Z90.49 - Acquired absence of other specified parts of digestive tract (ICD-10) H/O transurethral resection of prostate ?Z98.890 - Other specified postprocedural states (ICD-10) ?Z90.79 - Acquired absence of other genital organ(s) (ICD-10) Family History (Updated 06/29/24 @ 16:10 by Carmen Carlos RN) Mother Family history of diabetes mellitus Family history of myocardial infarction Father Family history of CHF (congestive heart failure) Sister Family history of cancer Social History (Updated 06/29/24 @ 16:12 by Carmen Carlos RN) Within the past year, how often did you have a drink containing alcohol: never Score interpretation: A score less than 4 is consistent with normal alcohol consumption. Smoking status: Former smoker Non-prescribed substance use: denies use Highest level of school completed/degree received: high school graduate Little interest or pleasure in doing things: not at all Feeling down, depressed, or hopeless: not at all Meds Home Medications and Allergies Home Medications ?Medication ?Instructions ?Recorded ?Confirmed ?Type atenolol 50 mg tablet 50 mg PO BIDWM 08/01/23 06/29/24 History atorvastatin 40 mg tablet 40 mg PO DAILY@1700 08/01/23 06/29/24 History furosemide 20 mg tablet 20 mg PO Q12H 08/01/23 06/29/24 History imipramine HCl 50 mg tablet 50 mg PO BID 08/01/23 06/29/24 History tamsulosin 0.4 mg capsule (Flomax) 0.4 mg PO DAILY 08/01/23 06/29/24 History terazosin 2 mg capsule 2 mg PO DAILY 08/01/23 06/29/24 History tiotropium 2.5 mcg-olodaterol 2.5 2 inh inhalation DAILY 08/01/23 06/29/24 History mcg/actuation mist for inhalation (Stiolto Respimat) levofloxacin 750 mg tablet 750 mg PO DAILY 06/29/24 06/29/24 History metformin 500 mg tablet 500 mg PO BIDWM 06/29/24 06/29/24 History ropinirole 1 mg tablet 1 mg PO BID 06/29/24 06/29/24 History sulfamethoxazole 800 1 tab PO DAILY 06/29/24 06/29/24 History mg-trimethoprim 160 mg tablet Allergies Allergy/AdvReac Type Severity Reaction Status Date / Time Iodinated Contrast Media AdvReac Mild Verified 08/01/23 07:47 niacin AdvReac Mild Verified 08/01/23 07:53 shellfish derived AdvReac Mild Verified 08/01/23 07:47 Exam Constitutional Vital Signs, click to edit/add: Last Vital Signs Temp 100.0 F 06/29/24 17:27 Pulse 101 H 06/29/24 16:04 Resp 22 H 06/29/24 16:04 BP 147/73 H 06/29/24 16:04 Pulse Ox 87 L 06/29/24 16:04 O2 Del Method Nasal Cannula 06/29/24 16:04 O2 Flow Rate 2 06/29/24 16:04 Documenting provider has reviewed patient's vital signs: yes Common normals: oriented x3 General appearance: cooperative and ill appearing HENMT Common normals: normocephalic and head/scalp atraumatic Head and scalp: normocephalic and atraumatic Eye Common normals: conjunctivae normal and no scleral icterus Conjunctiva: conjunctiva(e) normal Respiratory Common normals: normal respiratory effort Effort & inspection: tachypneic and labored Auscultation: wheezes and bronchial breath sounds Other: Visibly short of breath. Cardio Common normals: regular rate, S1 normal heart sound and S2 normal heart sound Rate: regular rate Heart sounds: S1 normal and S2 normal GI Common normals: Normal to inspection, nondistended, normoactive bowel sounds present, soft to palpation, non-tender and no hepatosplenomegaly Palpation: soft and no hepatosplenomegaly Extremity Common normals: no clubbing, cyanosis or edema Neuro Common normals: oriented x3, moves all extremities and no focal motor deficits Psych Common normals: mental status grossly normal, denies hallucinations, denies homicidal ideation and denies suicidal ideation Results Labs Labs: Short CBC 06/29/24 Range/Units 12:33 WBC 11.8 H (4.0-11.0) 10^3/uL Hgb 13.3 L (14.0-18.0) g/dL Hct 42.6 (42.0-54.0) % Plt Count 212 (150-450) 10^3/uL BMP 06/29/24 12:33 Sodium 142 Potassium 4.2 Chloride 105 Carbon Dioxide 31.0 BUN 13.0 Creatinine 1.29 Glucose 127 H Calcium 8.9 Assessment and Plan Assessment and Plan (1) Acute respiratory failure with hypoxia: Assessment and Plan: Due to COPD exacerbation. On IV solumedrol, duonebs. Wean off O2 as tolerated. (2) COPD exacerbation: Assessment and Plan: Negative for Influenza, COVID. CXR shows possible bronchiolitis. Empirically treat for presumed bacterial infection - started on IV rocephin/azithromycin. C/w Solumedrol, duonebs (3) Diabetes: Assessment and Plan: SSI while inpatinet. 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 IV hydralazine as needed. Resume home medications. Hold Atenolol due to risk of bronchospasm and switch to Coreg. Qualifiers: Hypertension type: primary hypertension Qualified Code(s): I10 - Essential (primary) hypertension (5) Hyperlipidemia: Assessment and Plan: C/w statin Qualifiers: Hyperlipidemia type: unspecified Qualified Code(s): E78.5 - Hyperlipidemia, unspecified (6) Restless leg: Assessment and Plan: C/w requip.
[2024-06-29] MEDS: IPRATROPIUM/ALBUTEROL SULFATE 3 ML AMPUL.NEB IH ×2 (19:56→23:12)
[2024-06-29 22:02] LABS: Glucometer 221 mg/dL (74-106)
[2024-06-29] MEDS: CARVEDILOL 12.5 MG TABLET PO (22:02)
[2024-06-29] MEDS: ROPINIROLE HCL 1 MG TABLET PO (22:02)
[2024-06-29] MEDS: ATORVASTATIN CALCIUM 40 MG TABLET PO (22:02)
[2024-06-29] MEDS: IMIPRAMINE HCL 25 MG TABLET 50 MG PO (22:03)
[2024-06-30] VITALS (10 sets, daily range): BP systolic 118–145; BP diastolic 57–69; PULSE 59–84; TEMP 36.3–36.4; O2SAT 88–98
[2024-06-30] MEDS: LACTATED RINGER'S SOLUTION 1,000 ML 125 ML IV (01:35)
[2024-06-30] MEDS: METHYLPREDNISOLONE SOD SUCC PF 40 MG/ML VIAL IVP ×3 (01:38→17:01)
[2024-06-30] MEDS: IPRATROPIUM/ALBUTEROL SULFATE 3 ML AMPUL.NEB IH ×6 (03:56→22:59)
[2024-06-30 05:57] LABS: Basophils Percent Auto 0.2 % (0.2-2.0); Hematocrit 37.8 % (42.0-54.0); Hemoglobin 12.1 g/dL (14.0-18.0); Immature Granulocytes Abs Auto 0.04 10^3/uL (0.00-0.03); Immature Granulocytes Pct Auto 0.3 % (0.0-0.5); Lymphocytes Absolute Auto 0.5 10^3/uL (1.2-3.8); Lymphocytes Percent Auto 4.1 % (20.5-60.0); Mean Corpuscular Hemoglobin 27.9 pg (25.9-34.0); Mean Corpuscular Volume 87.3 fL (80.0-94.0); Mean Platelet Volume 10.6 fL (9.5-13.5); Monocytes Absolute Auto 0.3 10^3/uL (0.3-0.8); Neutrophils Absolute Auto 12.2 10^3/uL (1.4-6.5); Neutrophils Percent Auto 93.4 % (43.0-75.0); Platelet Count 211 10^3/uL (150-450); Red Blood Count 4.33 10^6/uL (4.70-6.10); Red Cell Distribution Width 15.3 % (11.0-15.0)
[2024-06-30 06:32] LABS: Alanine Aminotransferase 20 U/L (16-63); Albumin Globulin Ratio 0.7; Albumin Level 2.9 g/dL (3.4-5.0); Alkaline Phosphatase 81 U/L (46-116); Anion Gap 12.1; Aspartate Amino Transferase 11 U/L (15-37); BUN Creatinine Ratio 11.4; Bilirubin Total 0.3 mg/dL (0.2-1.0); Calcium 9.1 mg/dL (8.5-10.1); Carbon Dioxide 28.9 mmol/L (21.0-32.0); Chloride 104 mmol/L (98-107); Estimated GFR (African America >60 (>=60 mL/min/1.73m^2); Estimated GFR (Non-African Ame >60 (>=60 mL/min/1.73m^2); Glucose 130 mg/dL (74-106); Sodium 141 mmol/L (136-145); Total Protein 6.9 g/dL (6.4-8.2)
[2024-06-30] MEDS: CARVEDILOL 12.5 MG TABLET PO ×2 (08:49→21:31)
[2024-06-30] MEDS: ROPINIROLE HCL 1 MG TABLET PO ×2 (08:49→21:31)
[2024-06-30] MEDS: TERAZOSIN HCL 1 MG CAPSULE 2 MG PO (08:49)
[2024-06-30] MEDS: TAMSULOSIN HCL 0.4 MG CAPSULE PO (08:49)
[2024-06-30] MEDS: IMIPRAMINE HCL 25 MG TABLET 50 MG PO ×2 (08:50→21:31)
--- NOTE | 2024-06-30 10:52 | PM.IMPN1 ---
Progress Note: A&P Assessment and Plan (1) Acute respiratory failure with hypoxia: Assessment and Plan: Still hypoxic, requiring 3 L O2. Wean off O2 as tolerated. Treat underlying COPD exacerbation (2) COPD exacerbation: Assessment and Plan: Mild improvement in dypsnea and overall resp status but still hypoxic and considerably SOB at rest with worsening dyspnea on minimal exertion C/w solumedrol, duonebs and IV abx for presumed bacterial URTI. 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 He is Coreg instead of Atenolol due to risk of bronchospasm. C/w rest of his antihypertensives. Qualifiers: Hypertension type: primary hypertension Qualified Code(s): I10 - Essential (primary) hypertension (5) Hyperlipidemia: Assessment and Plan: C/w statin Qualifiers: Hyperlipidemia type: unspecified Qualified Code(s): E78.5 - Hyperlipidemia, unspecified (6) Restless leg: Assessment and Plan: C/w requip Plan Needs continued inpatient treatment, monitoring as patient still hypoxic, SOB at rest and has not sufficiently improved clinically to go home. C/w Steroids, duonebs, IV abx. Wean off O2 as tolerated. Internal Medicine - PN: Subj Subjective Interval history: Seen and examined. Still needing 3 L O2 via NC. Appears SOB at rest and during conversation. Overall, he feels that he has improved from admission Exam Constitutional Vital Signs, click to edit/add: Last Vital Signs Temp 97.6 F 06/30/24 04:21 Pulse 84 06/30/24 10:32 Resp 18 06/30/24 10:32 BP 122/69 06/30/24 04:21 Pulse Ox 91 L 06/30/24 10:32 O2 Del Method Nasal Cannula 06/30/24 10:32 O2 Flow Rate 3 06/30/24 07:40 Documenting provider has reviewed patient's vital signs: yes Common normals: oriented x3 General appearance: cooperative and ill appearing Respiratory Common normals: normal respiratory effort Auscultation: wheezes and bronchial breath sounds Other: Conversational dyspnea noted Cardio Common normals: regular rate, S1 normal heart sound and S2 normal heart sound Rate: regular rate Heart sounds: S1 normal and S2 normal Extremity Common normals: no clubbing, cyanosis or edema Neuro Common normals: oriented x3, moves all extremities and no focal motor deficits Psych Common normals: mental status grossly normal, denies hallucinations, denies homicidal ideation and denies suicidal ideation Internal Medicine - PN: Obj Da Labs Labs: Laboratory Results - last 24 hr 06/29/24 06/29/24 06/29/24 12:08 12:33 22:01 WBC 11.8 H RBC 4.80 Hgb 13.3 L Hct 42.6 MCV 88.8 MCH 27.7 MCHC 31.2 RDW 15.2 H Plt Count 212 MPV 10.2 Neut % (Auto) 87.4 H Lymph % (Auto) 4.5 L [place] % (Auto) 4.8 Eos % (Auto) 0.7 L Baso % (Auto) 0.3 Neut # (Auto) 10.3 H Lymph # (Auto) 0.5 L [place] # (Auto) 0.6 Eos # (Auto) 0.1 Baso # (Auto) 0.0 Abs Immat Gran (auto) 0.27 H Imm/Tot Granulo (auto) 2.3 H PT 10.9 INR 1.03 APTT 26.8 Sodium 142 Potassium 4.2 Chloride 105 Carbon Dioxide 31.0 Anion Gap 10.2 BUN 13.0 Creatinine 1.29 Est GFR ( Amer) >60 Est GFR (Non-Af Amer) 54 L BUN/Creatinine Ratio 10.1 Glucose 127 H Calcium 8.9 Total Bilirubin AST ALT Alkaline Phosphatase Troponin I High Sens 5.8 NT-Pro-B Natriuret Pep 42.0 Total Protein Albumin Globulin Albumin/Globulin Ratio Influenza Type A Ag Negative Influenza Type B Ag Negative SARS-CoV-2 Ag (CV2AG) Negative POC Glucose 221 H 06/30/24 05:35 WBC 13.0 H RBC 4.33 L Hgb 12.1 L Hct 37.8 L MCV 87.3 MCH 27.9 MCHC 32.0 RDW 15.3 H Plt Count 211 MPV 10.6 Neut % (Auto) 93.4 H Lymph % (Auto) 4.1 L [place] % (Auto) 2.0 Eos % (Auto) 0.0 L Baso % (Auto) 0.2 Neut # (Auto) 12.2 H Lymph # (Auto) 0.5 L [place] # (Auto) 0.3 Eos # (Auto) 0.0 Baso # (Auto) 0.0 Abs Immat Gran (auto) 0.04 H Imm/Tot Granulo (auto) 0.3 PT INR APTT Sodium 141 Potassium 4.0 Chloride 104 Carbon Dioxide 28.9 Anion Gap 12.1 BUN 13.0 Creatinine 1.14 Est GFR ( Amer) >60 Est GFR (Non-Af Amer) >60 BUN/Creatinine Ratio 11.4 Glucose 130 H Calcium 9.1 Total Bilirubin 0.3 AST 11 L ALT 20 Alkaline Phosphatase 81 Troponin I High Sens NT-Pro-B Natriuret Pep Total Protein 6.9 Albumin 2.9 L Globulin 4.0 Albumin/Globulin Ratio 0.7 Influenza Type A Ag Influenza Type B Ag SARS-CoV-2 Ag (CV2AG) POC Glucose
--- NOTE | 2024-06-30 11:26 | CM.NOTE ---
Rounds made with Dr. Wilkins. Dr. Wilkins reviews labs, oxygen requirements and plan of care. No plan for discharge today.
[2024-06-30 11:50] LABS: Glucometer 173 mg/dL (74-106)
[2024-06-30] MEDS: CEFTRIAXONE 1,000 MG in 0.9 % SODIUM CHLORIDE 50 ML 100 MG IV (14:05)
[2024-06-30] MEDS: 0.9 % SODIUM CHLORIDE 250 ML 10 ML IV (14:05)
[2024-06-30] MEDS: AZITHROMYCIN 250 MG TABLET 500 MG PO (14:07)
--- NOTE | 2024-06-30 15:26 | SWNOTE1 ---
Important Message from [employer] reviewed and discussed with patient. Pt. verbalized understanding and signed the form. Original given to patient and copy placed in patient?s chart.
--- NOTE | 2024-06-30 15:27 | SWNOTE1 ---
SW met with pt to discuss dc needs. Pt lives at home with significant other. Pt has a walker and cane at home if needed. Pt has a home cpap. He used to have home oxygen, but he did not use it anymore and they picked it up, this was several years ago. Pt denies any needs at this time. SW to monitor for home O2 needs. SW reviewed therapy notes and no anticipated discharge needs at this time. SW to follow as needed.
[2024-06-30 16:18] LABS: Glucometer 234 mg/dL (74-106)
[2024-06-30] MEDS: ENOXAPARIN SODIUM 40 MG/0.4 ML SYRINGE SUBQ (17:01)
[2024-06-30] MEDS: ATORVASTATIN CALCIUM 40 MG TABLET PO (17:01)
[2024-06-30 19:31] LABS: Glucometer 132 mg/dL (74-106)
[2024-07-01] MEDS: METHYLPREDNISOLONE SOD SUCC PF 40 MG/ML VIAL IVP ×2 (01:39→10:34)
[2024-07-01 03:59] VITALS: PULSE 60; O2SAT 91
[2024-07-01] MEDS: IPRATROPIUM/ALBUTEROL SULFATE 3 ML AMPUL.NEB IH ×3 (03:59→10:59)
[2024-07-01 04:34] VITALS: BP 127/54; PULSE 60; TEMP 36.4; O2SAT 91
[2024-07-01 06:23] LABS: Basophils Percent Auto 0.1 % (0.2-2.0); Hematocrit 37.5 % (42.0-54.0); Immature Granulocytes Pct Auto 0.8 % (0.0-0.5); Lymphocytes Absolute Auto 0.5 10^3/uL (1.2-3.8); Lymphocytes Percent Auto 4.4 % (20.5-60.0); Mean Corpuscular Hemoglobin 27.6 pg (25.9-34.0); Mean Corpuscular Volume 86.2 fL (80.0-94.0); Mean Platelet Volume 10.8 fL (9.5-13.5); Monocytes Absolute Auto 0.6 10^3/uL (0.3-0.8); Monocytes Percent Auto 4.5 % (1.7-12.0); Neutrophils Percent Auto 90.2 % (43.0-75.0); Platelet Count 217 10^3/uL (150-450); Red Blood Count 4.35 10^6/uL (4.70-6.10); Red Cell Distribution Width 15.1 % (11.0-15.0); White Blood Count 12.2 10^3/uL (4.0-11.0)
[2024-07-01 06:37] LABS: Alanine Aminotransferase 17 U/L (16-63); Albumin Globulin Ratio 0.7; Albumin Level 2.8 g/dL (3.4-5.0); Alkaline Phosphatase 79 U/L (46-116); Anion Gap 7.7; Aspartate Amino Transferase 8 U/L (15-37); BUN Creatinine Ratio 16.2; Bilirubin Total 0.3 mg/dL (0.2-1.0); Calcium 9.5 mg/dL (8.5-10.1); Carbon Dioxide 28.5 mmol/L (21.0-32.0); Chloride 106 mmol/L (98-107); Estimated GFR (African America >60 (>=60 mL/min/1.73m^2); Estimated GFR (Non-African Ame >60 (>=60 mL/min/1.73m^2); Globulin 3.8 g/dL; Glucose 142 mg/dL (74-106); Potassium 4.2 mmol/L (3.5-5.1); Sodium 138 mmol/L (136-145); Total Protein 6.6 g/dL (6.4-8.2)
[2024-07-01 07:40] VITALS: PULSE 72; O2SAT 91
[2024-07-01 07:48] VITALS: BP 119/72; PULSE 76; TEMP 36.4; O2SAT 92
[2024-07-01] MEDS: CARVEDILOL 12.5 MG TABLET PO (10:34)
[2024-07-01] MEDS: TERAZOSIN HCL 1 MG CAPSULE 2 MG PO (10:34)
[2024-07-01] MEDS: IMIPRAMINE HCL 25 MG TABLET 50 MG PO (10:34)
[2024-07-01] MEDS: ROPINIROLE HCL 1 MG TABLET PO (10:35)
[2024-07-01] MEDS: TAMSULOSIN HCL 0.4 MG CAPSULE PO (10:35)
--- NOTE | 2024-07-01 10:38 | P.DS_ITS ---
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 Upon arrival, patient was considerably SOB, with labored breathing and also noted to have hypoxia with Pulse Ox as low as 85% on RA. He tested negative for Influenza, COVID. CXR was concerning for possible bronchiolitis. Patient was treated in ED with Duoneb and Solumedrol and felt a little better but was still quite dyspneic at rest and could not hold a conversation. Patient admitted as inpatient for COPD exacerbation, acute resp failure with hypoxia. He was treated with IV solumedrol, aizthromycin and duonebs. He slowly improved and today we were finally able to wean him off of O2. He reports only mild BLEVINS and still has cough. However, markedly better overall and is medically stable for discharge. His PCP had called in Oral Levaquin for him while he was in the hospital. He was instructed to finish Levaquin and will be prescribed Prednisone Taper for COPD exacerbation. D/c Atenolol and switch to Coreg as low risk of bronchospasm with Coreg in a patient with hx of COPD. Patient was also educated on worrisome signs symptoms, and was instructed to return to ED if he has worsening shortness of breath or hypoxia. Patient also instructed to follow-up with PCP in 1 to 2 weeks. Status at Discharge Functional status at discharge: independent ambulation Overall status at discharge: patient is back to baseline Time Spent with Patient Time attestation: Total time spent providing and/or coordinating discharge services: Exam Constitutional Vital Signs, click to edit/add: Last Vital Signs Temp 97.6 F 07/01/24 07:48 Pulse 76 07/01/24 07:48 Resp 18 07/01/24 07:48 BP 119/72 07/01/24 07:48 Pulse Ox 92 L 07/01/24 07:48 O2 Del Method Room Air 07/01/24 07:48 O2 Flow Rate 1.5 07/01/24 04:34 Documenting provider has reviewed patient's vital signs: yes Common normals: oriented x3 General appearance: cooperative and ill appearing Respiratory Common normals: normal respiratory effort and no use of accessory muscles Effort & inspection: able to speak in complete sentences and actively coughing Other: Mild Exp wheezing. Cardio Common normals: regular rate, S1 normal heart sound and S2 normal heart sound Rate: regular rate Heart sounds: S1 normal and S2 normal Extremity Common normals: no clubbing, cyanosis or edema Neuro Common normals: oriented x3, moves all extremities and no focal motor deficits Psych Common normals: mental status grossly normal, denies hallucinations, denies homicidal ideation and denies suicidal ideation DS: Data Data Completed and Pending Labs on day of discharge: Labs from last 24 hours 07/01/24 06/30/24 06/30/24 05:25 19:29 16:17 WBC 12.2 H RBC 4.35 L Hgb 12.0 L Hct 37.5 L MCV 86.2 MCH 27.6 MCHC 32.0 RDW 15.1 H Plt Count 217 MPV 10.8 Neut % (Auto) 90.2 H Lymph % (Auto) 4.4 L [place] % (Auto) 4.5 Eos % (Auto) 0.0 L Baso % (Auto) 0.1 L Neut # (Auto) 11.0 H Lymph # (Auto) 0.5 L [place] # (Auto) 0.6 Eos # (Auto) 0.0 Baso # (Auto) 0.0 Abs Immat Gran (auto) 0.10 H Imm/Tot Granulo (auto) 0.8 H Sodium 138 Potassium 4.2 Chloride 106 Carbon Dioxide 28.5 Anion Gap 7.7 BUN 19.0 H Creatinine 1.17 Est GFR ( Amer) >60 Est GFR (Non-Af Amer) >60 BUN/Creatinine Ratio 16.2 Glucose 142 H Calcium 9.5 Total Bilirubin 0.3 AST 8 L ALT 17 Alkaline Phosphatase 79 Total Protein 6.6 Albumin 2.8 L Globulin 3.8 Albumin/Globulin Ratio 0.7 POC Glucose 132 H 234 H 06/30/24 11:47 WBC RBC Hgb Hct MCV MCH MCHC RDW Plt Count MPV Neut % (Auto) Lymph % (Auto) [place] % (Auto) Eos % (Auto) Baso % (Auto) Neut # (Auto) Lymph # (Auto) [place] # (Auto) Eos # (Auto) Baso # (Auto) Abs Immat Gran (auto) Imm/Tot Granulo (auto) Sodium Potassium Chloride Carbon Dioxide Anion Gap BUN Creatinine Est GFR ( Amer) Est GFR (Non-Af Amer) BUN/Creatinine Ratio Glucose Calcium Total Bilirubin AST ALT Alkaline Phosphatase Total Protein Albumin Globulin Albumin/Globulin Ratio POC Glucose 173 H Discharge Plan Discharge Disposition: Home, Self-Care Discharge Medications: New prednisone 20 mg tablet 20 mg PO DAILY Qty: 20 0RF Rx Instructions: 3 tab x 3 days, 2 tabs x 3 days, 1 tab x 3 days, 1/2 tab x 4 days benzonatate 100 mg capsule 100 mg PO Q6H PRN (Reason: cough) Qty: 10 0RF carvedilol [Coreg] 12.5 mg tablet 12.5 mg PO BID 30 Days Qty: 60 0RF Rx Instructions: must administer with a meal/food Continued furosemide 20 mg tablet 20 mg PO Q12H atorvastatin 40 mg tablet 40 mg PO DAILY@1700 imipramine HCl 50 mg tablet 50 mg PO BID terazosin 2 mg capsule 2 mg PO DAILY tamsulosin [Flomax] 0.4 mg capsule 0.4 mg PO DAILY Stiolto Respimat 2.5-2.5 mcg/actuation mist 2 inh inhalation DAILY levofloxacin 750 mg tablet 750 mg PO DAILY Rx Instructions: FROM 06/25/24-07/02/24 metformin 500 mg tablet 500 mg PO BIDWM ropinirole 1 mg tablet 1 mg PO BID Discontinued atenolol 50 mg tablet 50 mg PO BIDWM sulfamethoxazole-trimethoprim 800-160 mg tablet 1 tab PO DAILY Activity: increase activity as tolerated Diet: advance to your usual diet Print Language: Welsh Forms: Portal Instructions Follow Up Appointments: F/u with PCP in one week
--- NOTE | 2024-07-01 10:55 | CM.NOTE ---
Rounds made with Dr. Wilkins. Plan for discharge today. Dr. Wilkins reviews new medications with Mr. Mora and how to take inhalers at home. After much discussion. Mr. Mora verablizes understanding.
[2024-07-01 11:02] VITALS: PULSE 67; O2SAT 91
--- NOTE | 2024-07-02 15:03 | CM.DCFOLLOWU ---
Person spoke with: patient How are you feeling?well How is your pain? some heart burn after taking meds, advised to reach out to PCP if continues and has concerns Did you understand your discharge instructions?yes Do you have any questions about your discharge instructions?no Were you given any prescriptions at discharge?yes Were you able to get your prescriptions filled?yes Do you understand how to take your medications as ordered?yes we reviewed the Predisone Do you have any questions about your follow up appointment and do you plan to keep your follow up appointment? no questions, follow up scheduled Is there anything else that you would like to discuss?no Questions/Comments/Concerns/Other: none
== END 2024-07-01 11:25 | disposition home or self-care (01) | DRG 190 ==
LOC: ER 15:01 → MS 15:55
PROVIDERS: Admitting Provider Internal Medicine; Emergency Provider Emergency Medicine; PCP Family Medicine; Visit Provider Internal Medicine
DX: J44.1 Chronic obstructive pulmonary disease with (acute) exacerbation (principal); J96.01 Acute respiratory failure with hypoxia; E11.9 Type 2 diabetes mellitus without complications; I10 Essential (primary) hypertension; E78.5 Hyperlipidemia, unspecified; G25.81 Restless legs syndrome; Z87.891 Personal history of nicotine dependence; Z79.84 Long term (current) use of oral hypoglycemic drugs; Z90.49 Acquired absence of other specified parts of digestive tract; Z90.79 Acquired absence of other genital organ(s); Z86.73 Personal history of transient ischemic attack (TIA), and cerebral infarction without residual deficits; G47.30 Sleep apnea, unspecified; K21.9 Gastro-esophageal reflux disease without esophagitis; Z87.440 Personal history of urinary (tract) infections; Z85.46 Personal history of malignant neoplasm of prostate
CPT/HCPCS: 36415; 71046; 80048; 80053; 82948; 83880; 84484; 85025; 85610; 85730; 87804; 87811; 93005; 94640; 94761; 94799; 96365; 96375; 99285; J0456; J0696; J1650; J2919

== ENCOUNTER 2024-08-30 07:54 | Outpatient (OUT) | payer MEDICARE, SELFPAY ==
--- NOTE | 2024-08-30 08:04 | CT_ITS ---
The [address] [address] Patient Name: XIMENA CAMARILLO MRN: [id number] date: 1950 Sex: M Assigned Patient Location: CT Current Patient Location: CT Accession/Order Number: [id number] Exam Date: 08/30/2024 11:05 Report Date: 08/30/2024 11:16 At the request of: KATJA BAEZ DO Procedure: CT lung screening low-dose LOW-DOSE SCREENING LUNG CT WITHOUT CONTRAST COMPARISON: 08/29/2023 CLINICAL DATA: History of tobacco abuse Spiral axial unenhanced low-dose images were obtained through the chest. Images were reviewed using both narrow and wide window settings. This CT exam was performed using one or more following dose reduction techniques: Automated exposure control, adjustment of the mA and/or kV according to patient size, or use of iterative reconstruction technique. The heart is within normal limits for size. No pericardial effusion is present. Minor coronary artery disease is noted. The ascending aorta is borderline aneurysmal measuring approximately 4 cm in diameter. There is minor atherosclerotic plaque at the aortic arch and proximal great vessels. There are a few noncalcified lymph nodes at the mediastinum which were seen previously. There are also subcarinal and right hilar calcified granulomas. Bilateral gynecomastia is seen. There is slight levoscoliotic curvature and degenerative changes at the spine. There is slight wedge deformity at T4 which was also present on the comparison. There is minimal scarring or atelectasis. No consolidation, pleural effusion or pneumothorax is identified. Calcified granulomas are again visualized on the right. No developing nodularity is seen. Limited imaging through the upper abdomen shows hepatic and splenic granulomas. There is similar adrenal nodularity, right larger than left. CT/CT lung screening low-dose IMPRESSION: BORDERLINE ANEURYSMAL ASCENDING AORTA. GRANULOMATOUS CHANGES. NO DEVELOPING PULMONARY NODULARITY. Lung RADS category 2 - benign Twelve-month low-dose CT follow-up suggested Impression dictated by: Jessica Doherty M.D.08/30/2024 11:16 AM Dictation Location: [place] [address] Electronically authenticated by: [id number] Y Date: 08/30/2024 11:16
--- OUTSIDE RECORDS SUMMARY | 2024-08-30 08:16 | XMS_ITS | CCD ---
Author Organization [facility] Care Team Providers Care Medical Records Administrator Name Role Phone ORGEL, ANA PAULA K Unavailable Unavailable ORGEL, ANA PAULA K Unavailable Unavailable AMBKADE MANUELA R Unavailable Unavailable AMBKADE MANUELA R Unavailable Unavailable PHYSICIAN, DEFAULT Unavailable Unavailable PHYSICIAN, DEFAULT Unavailable Unavailable PHYSICIAN, DEFAULT Unavailable Unavailable PHYSICIAN, DEFAULT Unavailable Unavailable Nguyen Garber Attending Provider Catracho Jiménez Primary Care Provider [phone] Catracho Jiménez MD Primary Care Provider Jeremy Kelley MD Unavailable [phone] CATRACHO JIMÉNEZ Primary Care Physician TINO ., DR CATRACHO Garcia Admitting Unavailable JIMÉNEZ ., DR CATRACHO Garcia Attending Unavailable JIMÉNEZ ., DR CATRACHO Garcia Primary Care Unavailable JIMÉNEZ ., DR CATRACHO Garcia Consulting Unavailable JOAQUIM, RAEGAN JOSE RAUL Admitting Unavailable RAEGAN MARCH Attending Unavailable JOAQUIM RAEGAN JOSE RAUL Primary Care Unavailable JOAQUIM, RAEGAN JOSE RAUL Consulting Unavailable SAMSA ., KATJA Admitting Unavailable SAMSA ., KATJA Attending Unavailable LYN, DR KHADIJAH Mejia Consulting Unavailable JOAQUIM, RAEGAN JOSE RAUL Primary Care Unavailable SAMSA [...] JIMÉNEZ ., DR CATRACHO Garcia Consulting Unavailable Ross, Raegan E. Primary Care Physician [phone] Tino CHOPRA Catracho Wilkins Primary Care Provider Khadijah Grove Unavailable MD Raegan March Primary Care Provider [phone] MD Khadijah Grove Attending Provider MD Raegan March Primary Care Provider [phone] [facility], DO Kerns Attending Provider Kahdijah Grove Admitting Unavailable Khadijah Grove Attending Unavailable Joaquim Raegan E Primary Care Unavailable Khadijah Grove Admitting Unavailable Khadijah Grove Attending Unavailable Joaquim Raegan E Primary Care Unavailable Khadijah Grove Admitting Unavailable Khadijah Grove Attending Unavailable Ross, Raegan E Primary Care Unavailable [facility], Katja Admitting Unavailable [facility] Attending Unavailable Kenton Marchuel E Primary Care Unavailable Raegan March MD Primary Care Provider [phone] Raegan March MD Primary Care Provider Raegan March Attending Unavailable Joaquim Raegan EHanna Admitting Unavailable Joaquim, Raegan EHanna Admitting Unavailable Ross, Raegan E. Attending Unavailable Joaquim, Raegan E. Attending Unavailable Joaquim, Raegan EHanna Attending Unavailable WELLINGTON HOLGUIN Attending Unavailable Joaquim Raegan EHanna Attending Unavailable Jeremy KELLEY Attending Unavailable Jeremy KELLEY Attending Unavailable Joaquim, Raegan EHanna Admitting Unavailable Joaquim Raegan E. Attending Unavailable Sebastián, REFUND CLERK Pau L Admitting Unavailable Sebastián, REFUND CLERK Pau L Attending Unavailable Joaquim, Raegan E. Attending Unavailable Joaquim Raegan E. Attending Unavailable Joaquim Raegan E. Attending Unavailable Joaquim Raegan E. Attending Unavailable Joaquim, Raegan E. Attending Unavailable Joaquim, Raegan E. Attending Unavailable ANNABELLE HATFIELD Attending Unavailable MARISOL GANDHI Attending Unavailable ISELAINGEMMA Attending Unavailable EMMA MENCHACA Referring Unavailable MOLLY RAMIREZ Attending Unavailable DARYL YOUNG Attending Unavailable EMMA MENCHACA Referring Unavailable JR. PARKS GEORGE C Attending UnavailSHABBIR Kim Attending Unavailable TULIO PARKS Attending Unavailable Raegan March Primary Care Unavailable TULIO PARKS Admitting Unavailable TULIO PARKS Attending Unavailable Raegan March Primary Care Unavailable TULIO PARKS Admitting Unavailable Raegan March Attending Unavailable Jeremy KELLEY Attending Unavailable Jeremy KELLEY Attending Unavailable PERICO HOLGUIN [place]LL[place] A Admitting Unavailabl mirna HOLGUIN CNP [place] A Attending Unavailabl Raegan Davidson Admitting Unavailable Raegan March Attending Unavailable Raegan March Admitting Unavailable Raegan March Attending Unavailable Raegan March Attending Unavailable Raegan March Attending Unavailable PERICO HOLGUIN [place] A Attending Unavailabl e Allergies Allergy Classification Reported Allergen(s) Allergy Type Date of Onset Reaction(s) Facility Contrast Media (1 source) Contrast media; Translations: [contrast media (iodine-based)] Substance Allergy Unknown (qualifier value) [facility] Inositol (1 source) Inositol; Translations: [inositol] Drug Allergy Unknown (qualifier value) [facility] Niacin (1 source) Niacin Drug Allergy 1 Swelling of Lip/Tongue/Thro at [facility] Shellfish (2 sources) Shellfish; Translations: [shellfish] Food Allergy 1 Unknown (qualifier value) [facility] Unclassified (20 sources) Iodinated Contrast Media; Translations: [Iodinated Contrast Media] Allergy to substance 6 Hives, Anaphylaxis [facility] (12 sources) Glucosamine Drug Allergy 8 Anaphylaxis, Unknown [facility] (16 sources) Niacin; Translations: [niacin] Drug Allergy 6 Hives, Rash [facility] (18 sources) Shellfish; Translations: [shellfish] Drug Allergy 6 Hives, Unknown (qualifier value) [facility] (20 sources) Contrast media; Translations: [contrast media (iodine-based)] Drug allergy Unknown (qualifier value) [facility] (20 sources) Inositol; Translations: [inositol] Drug Allergy Unknown (qualifier value) [facility] (1 source) Iodine (And Iodine Containting Drugs) Drug allergy (disorder) 6 [facility] (1 source) Niacin Drug Allergy 4 [facility] (17 sources) Shellfish; Translations: [shellfish] Drug allergy (disorder) 4 Unknown (qualifier value) [facility] (1 source) Sulfonamides (Antibiotic) Drug allergy (disorder) [facility] (3 sources) Shellfish; Translations: [shellfish derived] Allergy to substance 3 Swelling of Lip/Tongue/Thro at [facility] (1 source) Niacin Drug Allergy 4 [facility] (15 sources) Inositol Drug Allergy 4 [facility] (18 sources) Inositol niacinate Allergy to substance 3 Rash [facility] Work Phone: (18 sources) Iodine Drug Allergy 3 [facility] (18 sources) meloxicam Drug Allergy 3 [facility] (18 sources) Niacin Drug Allergy 3 Rash [facility] (18 sources) Shellfish-Derive d Products Drug Allergy 3 [facility] (1 source) Contrast media; Translations: [Contrast Dye] Propensity to adverse reactions to drug (disorder) [facility] Repository Medications Current Medications Medication Drug Class(es) Dates Sig (Normalized) Sig (Original) albuterol 0.83 mg/ml inhalation solution (20 sources) beta2-Adrenergic Agonist Start: 08-04-2023 take 2.5 mg by inhalation every four hours albuterol 0.083% Inh Mary 3 mL 2.5 mg, 3 mL, NEB, q4hr, 120 EA, Refill(s) 0, [facility], 188, cm, 06/09/23 13:56:00 EST, Height/Length Dosing, 127.9, kg, 03/17/23 11:18:00 EDT, Weight Dosing Start Date: 08/04/23 Status: Ordered Start: 09-12-2022 take 2.5 mg by inhal ation every four hours albuterol 0.083% Inh Mary 3 mL 2.5 mg, 3 mL, NEB, q4hr, 120 EA, Refill(s) 0, [facility], 193, cm, 08/29/22 13:11:00 EST, Height/Length Dosing, 128.8, kg, 08/29/22 13:11:00 EST, Weight Dosing Start Date: 09/12/22 Status: Ordered Start: 08-26-2022 albuterol 0.08 3% Inh Mary 3 mL Refill(s) 0 Start Date: 08/26/22 Status: Ordered Start: 12-06-2020 take 2.5 mg by inhal ation once daily Albuterol Sulfate Active 2.5 MG INHALATION Daily December 06, 2020 12:00am Start: 12-06-2020 take 90 ug by inhala tion once daily Albuterol Sulfate Active 90 MCG INHALATION Daily December 06, 2020 12:00am albuterol (2.5 M G/3ML) 0.083% nebulizer solution Take 2.5 mg by nebulization every 6 (six) hours if needed. Active take 1 puff(s) by in halation every four hours albuterol HFA 90 mcg/act inhaler Inhale 1 puff every 4 (four) hours if needed. Active Albuterol (Eqv-ProAir HFA) 90 mcg/inh inhalation aerosol (13 sources) Start: 09-12-2022 take 2 puff(s) by inhalation every six hours Albuterol (Eqv-ProAir HFA) 90 mcg/inh inhalation aerosol 2 puff(s), Inhalation, q6hr, 18 gm, Refill(s) 3, [facility], 193, cm, 08/29/22 13:11:00 EST, Height/Length Dosing, 128.8, kg, 08/29/22 13:11:00 EST, Weight Dosing Start Date: 09/12/22 Status: Ordered Start: 08-26-2022 Albuterol (Eqv -ProAir HFA) 90 mcg/inh inhalation aerosol Refill(s) 0 Start Date: 08/26/22 Status: Ordered aspirin 81 mg delayed release oral tablet (20 sources) Platelet Aggregation Inhibitor, Nonsteroidal Anti-inflammatory Drug Start: 12-06-2020 aspirin 81 mg Ora l EC Tab Refills(s) 0 Start Date: 08/26/22 Status: Ordered aspirin 81 mg ca p Take 81 mg by mouth. 0 Active Comment on above: Take 81 mg by mouth. atenolol 50 mg oral tablet (20 sources) beta-Adrenergic Chapis Start: 12-06-2020 take 1 tablet by mouth twice daily atenolol 50 mg Tab 50 mg = 1 tab(s), Oral, BID, # 180 tab(s), Refills(s) 4, Pharmacy: [facility]/pharmacy #[id number], 188, cm, 04/15/24 10:23:00 EDT, Height/Length Dosing, 120.6, kg, 04/15/24 10:23:00 EDT, Weight Dosing Start Date: 05/31/24 Status: Ordered Start: 12-06-2020 Atenolol Activ e 50 MG PO 1-2 TIMES DAILY December 06, 2020 12:00am Start: 08-31-2019 take 1 tablet by patricia th once daily atenolol 50 mg Tab [...] tablet (20 sources) HMG-CoA Reductase Inhibitor Start: 0 take 1 tablet by mouth once daily atorvastatin 40 mg Tab 40 mg = 1 tab(s), Oral, Daily, # 90 tab(s), Refills(s) 4, Pharmacy: [facility]/pharmacy #[id number], 188, cm, 04/15/24 10:23:00 EDT, Height/Length Dosing, 120.6, kg, 04/15/24 10:23:00 EDT, Weight Dosing Start Date: 05/31/24 Status: Ordered Comment on above: once daily. azithromycin 250 mg Tab 5-day Dose Pack (Z-Raimundo) (1 source) Start: 3 End: 3 azithromycin 250 mg Tab 5-day Dose Pack (Z-Raimundo) = 1 packet(s), Oral, As Directed, as directed on package labeling, X 5 day(s), # 6 tab(s), Refills(s) 0, Pharmacy: [facility]/pharmacy #[id number], 188, cm, 06/09/23 13:56:00 EST, Height/Length Dosing, 127.9, kg, 03/17/23 11:18:00 EDT, Weight Dosing Start Date: 06/09/23 Stop Date: 06/14/23 Status: Ordered benzonatate 100 mg oral capsule (4 sources) Non-narcotic Antitussive Start: 5 take 1 capsule by mouth every six hours as needed for cough benzonatate 100 mg Cap TAKE 1 CAPSULE BY MOUTH EVERY 6 HOURS NEEDED FOR COUGH Start Date: 07/08/24 Status: Ordered Start: 01-26-2024 benzonatate 10 0 mg Cap See Instructions, TAKE 1 CAPSULE THREE TIMES DAILY X 7 DAYS, # 21 cap(s), Refills(s) 0, Pharmacy: [facility]/pharmacy #[id number], 189, cm, 01/15/24 9:28:00 EDT, Height/Length Dosing, 121.4, kg, 01/15/24 9:28:00 EDT, Weight Dosing Start Date: 01/26/24 Status: Ordered Start: 06-09-2023 End: 06-16-2023 take 1 capsule by mouth three times daily benzonatate 200 mg oral capsule 200 mg = 1 cap(s), Oral, TID, X 7 day(s), # 21 cap(s), Refills(s) 0, Pharmacy: [facility]/pharmacy #[id number], 188, cm, 06/09/23 13:56:00 EST, Height/Length Dosing, 127.9, kg, 03/17/23 11:18:00 EDT, Weight Dosing Start Date: 06/09/23 Stop Date: 06/16/23 Status: Ordered cephalexin 500 mg oral capsule (10 sources) Cephalosporin Antibacterial Start: 06-25-2023 take 1 capsule by mouth every twelve hours Keflex 500 mg Cap 500 mg = 1 cap(s), Oral, q12hr, # 20 cap(s), Refills(s) 0, Pharmacy: [facility]/pharmacy #[id number], 188, cm, 06/09/23 13:56:00 EST, [...] on above: Take 1 capsule by mo ut three times daily. Take these pills first Take 1 capsule by mo ut once daily. Start these after 1st prescription completed cetirizine hydrochloride 10 mg oral tablet (20 sources) Histamine-1 Receptor Antagonist Start: 023 End: 024 take 1 tablet by mouth once daily as needed cetirizine (ZyrTEC) 10 MG tablet Indications: Chronic pansinusitis Take 1 tablet (10 mg) by mouth Daily as needed for allergies. 30 tablet 11 03/10/2023 Active cholecalciferol 0.025 mg oral tablet (20 sources) Vitamin D Start: 021 take 1 tablet by mouth once daily in the morning Cholecalciferol (Vitamin D3) (Vitamin D3) 25 mcg (1,000 unit) Tablet Active 50 MCG PO Every morning December 06, 2020 12:00am take 1 tablet by mouth in the mo rning cholecalciferol (Vitamin D-3) 50 MCG (2000 UT) tablet Take 2,000 Units by mouth in the morning. Active docusate sodium 100 mg oral capsule (3 sources) Start: 12-21-2021 End: 01-20-2022 take 1 capsule by mouth twice daily docusate sodium (COLACE) 100 mg capsule Take 1 capsule by mouth twice daily. 60 capsule 0 12/21/2021 01/20/2022 Active Comment on above: Take 1 capsule by mo uth twice daily. ezetimibe 10 mg oral tablet (6 sources) Dietary Cholesterol Absorption Inhibitor Start: 03-01-2016 End: 10-23-2021 take 10 mg by mouth once daily Ezetimibe Active 10 MG PO Daily December 06, 2020 12:00am famotidine 20 mg oral tablet (20 sources) Histamine-2 Receptor Antagonist Start: 12-18-2023 famotidine 20 mg Tab 20 mg = 1 tab(s), Refills(s) 0 Start Date: 12/18/23 Status: Ordered Start: 04-17-2023 take 1 tablet by patricia th twice daily as needed for gastroesophageal reflux disease famotidine 20 mg Tab See Instructions, TAKE 1 TABLET BY MOUTH TWICE A DAY NEEDED FOR GERD SYMPTOMS, # 180 tab(s), Refills(s) 1, Pharmacy: [id number], 188, cm, 03/17/23 11:18:00 EDT, Height/Length Dosing, 127.9, kg, 03/17/23 11:18:00 EDT, Weight Dosing Start Date: 04/17/23 Status: Ordered Start: 03-17-2023 End: 10-23-2021 take 1 tablet by mouth twice daily as needed for gastroesophageal reflux disease Pepcid 20 mg Tab 20 mg = 1 tab(s), Oral, BID, PRN for GERD symptoms, # 60 tab(s), Refills(s) 0, Pharmacy: [facility]/pharmacy #[id number], 188, cm, 03/17/23 11:18:00 EDT, Height/Length Dosing, 127.9, kg, 03/17/23 11:18:00 EDT, Weight Dosing Start Date: 03/17/23 Status: Ordered Start: 12-06-2020 take 20 mg by mouth once daily in the morning Famotidine Active 20 MG PO Every morning December 06, 2020 12:00am take 1 tablet by patricia th twice daily as needed for gastroesophageal reflux disease famotidine (Pepcid) 20 MG tablet TAKE 1 TABLET BY MOUTH TWICE A DAY NEEDED FOR GERD SYMPTOMS Active Comment on above: Take 20 mg by mouth twice daily. Fish Oils (13 sources) Start: 08-26-2022 Fish Oil 1000 mg oral capsule Refills(s) 0 Start Date: 08/26/22 Status: Ordered Flonase 50 MCG/DOSE (1 source) take 1 spray(s) nasal route once daily Flonase 50 MCG/DOSE 1 spray in each nostril Nasally Once a day Active Flonase (20 sources) Corticosteroid Start: 11-25-2023 Flonase mcg, Daily, Refill(s) 0 Start Date: 11/25/23 Status: Ordered Start: 03-10-2023 End: 03-09-2024 take 2 spray(s) nasal route in the morning fluticasone (Flonase) 50 MCG/ACT nasal spray Indications: Chronic pansinusitis Administer 2 sprays into each nostril in the morning. Shake gently. Before first use, prime pump. After use, clean tip and replace cap.. 16 g 11 03/10/2023 Active take 1 spray(s) nasa l route once daily fluticasone (FLONASE) 50 mcg/actuation nasal spray Indications: Prostate cancer (HCC) Use 1 [place] in each nostril once daily. 0 Active Comment on above: Use 1 [place] in each nostril once daily. folic acid 1 mg / polysaccharide iron complex 150 mg / vitamin b12 0.025 mg oral capsule (2 sources) Vitamin B12 Start: 5 End: 5 take 1 tablet by mouth once daily Iron Polysacch [id number] (Poly-Iron 150 Forte) 150-0.025-1 MG capsule Indications: Preop examination Take 1 tablet by mouth Daily 30 capsule 1 08/16/2024 09/15/2024 Active furosemide 20 mg oral tablet (20 sources) Loop Diuretic Start: 6 take 1 tablet by mouth twice daily furosemide 20 mg Tab See Instructions, TAKE 1 TABLET BY MOUTH TWICE A DAY, # 180 tab(s), Refills(s) 3, Pharmacy: [facility]/pharmacy #[id number], 188, cm, 04/15/24 10:23:00 EDT, Height/Length Dosing, 120.6, kg, 04/15/24 10:23:00 EDT, Weight Dosing Start Date: 05/31/24 Status: Ordered Start: 01-29-2016 take 20 mg by mouth once daily Furosemide Active 20 MG PO Daily December 06, 2020 12:00am Comment on above: Take by mouth twice daily. glipiZIDE er 2.5 mg 24 hr extended release oral tablet (20 sources) Sulfonylurea Start: 08-04-2023 take 1 tablet by mouth once daily glipiZIDE 2.5 mg ER Tab 2.5 mg = 1 tab(s), Oral, Daily, # 180 tab(s), Refills(s) 3, Pharmacy: [facility], 188, cm, 06/09/23 13:56:00 EST, Height/Length Dosing, 127.9, kg, 03/17/23 11:18:00 EDT, Weight Dosing Start Date: 08/04/23 Status: Ordered Start: 06-30-2023 take 1 tablet by patricia th once daily glipiZIDE 2.5 mg ER Tab 2.5 mg = 1 tab(s), Oral, Daily, # 180 tab(s), Refills(s) 3, Pharmacy: [facility], 188, cm, 06/09/23 13:56:00 EST, Height/Length Dosing, 127.9, kg, 03/17/23 11:18:00 EDT, Weight Dosing Start Date: 06/30/23 Status: Ordered Start: 08-26-2022 take 1 tablet by patricia th once daily glipiZIDE 2.5 mg ER Tab 2.5 mg = 1 tab(s), Oral, Daily, # 180 tab(s), Refills(s) 3, Pharmacy: [facility], 193, cm, 08/29/22 13:11:00 EST, Height/Length Dosing, 128.8, kg, 08/29/22 13:11:00 EST, Weight Dosing Start Date: 09/12/22 Status: Ordered End: 08-16-2024 take 2.5 mg by mouth once daily glipiZIDE (Glucotrol) 5 MG tablet Take 2.5 mg by mouth 1 (one) time each day at the same time. 08/16/2024 Discontinued (Therapy completed) End: 10-23-2021 GLIPIZIDE ORAL Take by mouth . 0 10/23/2021 Discontinued (Duplicate Entry) GLIPIZIDE ORAL T felipa by mouth. 0 Active Comment on above: Take by mouth. Take 2.5 mg by mouth once daily. ibuprofen 200 mg oral tablet (13 sources) Nonsteroidal Anti-inflammatory Drug Start: 03-06-202 3 ibuprofen 200 mg Tab Refills(s) 0 Start Date: 08/26/22 Status: Ordered imipramine hydrochloride 50 mg oral tablet (20 sources) Tricyclic Antidepressant Start: 0 take 1 mg by mouth three times daily imipramine 50 mg oral tablet mg tab(s), Oral, TID, Refills(s) 0 Start Date: 08/31/19 Status: Ordered Start: 03-04-2016 take 1 tablet by [facility] twice daily imipramine 50 mg oral tablet See Instructions, TAKE 1 TABLET TWICE DAILY, # 180 tab(s), Refills(s) 4, Pharmacy: [facility]/pharmacy #[id number], 188, cm, 04/15/24 10:23:00 EDT, Height/Length Dosing, 120.6, kg, 04/15/24 10:23:00 EDT, Weight Dosing Start Date: 05/31/24 Status: Ordered take 2 tablets by [facility] every twenty-four hours Imipramine HCl 50 MG 2 tablets at bedtime Orally Once a day Active Comment on above: Take by mouth twice daily. irbesartan 75 mg oral tablet (20 sources) Angiotensin 2 Receptor Chapis Start: 08-27-19 23 take 1 tablet by mouth once daily irbesartan 75 mg Tab 75 mg = 1 tab(s), Oral, Daily, # 90 tab(s), Refills(s) 4, Pharmacy: [facility], 188, cm, 07/08/24 7:49:00 EST, Height/Length Dosing, 118.7, kg, 07/08/24 7:49:00 EST, Weight Dosing Start Date: 07/08/24 Status: Ordered levoFLOXacin 750 mg oral tablet (3 sources) Quinolone Antimicrobial Start: 07-08-19 25 take 1 tablet by mouth once daily levofloxacin 750 mg Tab TAKE 1 TABLET BY MOUTH EVERY DAY FOR 7 DAYS Start Date: 07/08/24 Status: Ordered Start: 06-24-2024 End: 07-01-2024 take 1 tablet by mouth every twenty-four hours levofloxacin 750 mg Tab 750 mg = 1 tab(s), Oral, q24hr, X 7 day(s), # 7 tab(s), Refills(s) 0, Pharmacy: [facility], 188, cm, 06/24/24 10:52:00 EST, Height/Length Dosing, 118.2, kg, 06/24/24 10:52:00 EST, Weight Dosing Start Date: 06/24/24 Stop Date: 07/01/24 Status: Ordered losartan potassium 100 mg oral tablet (20 sources) Angiotensin 2 Receptor Chapis Start: 12-06-2020 End: 08-16-2024 take 100 mg by mouth once daily Losartan Active 100 MG PO Daily December 06, 2020 12:00am Start: 10-23-2018 losartan (COZA AR) 100 mg tablet 50 mg daily at bedtime. 0 10/23/2018 Active Comment on above: 50 mg. 50 mg daily at bedti me. metFORMIN hydrochloride 500 mg oral tablet (20 sources) Biguanide Start: 08-26-2022 take 1 tablet by mouth twice daily metformin 500 mg Tab 500 mg = 1 tab(s), Oral, BID, # 180 tab(s), Refills(s) 4, Pharmacy: [facility], 188, cm, 07/08/24 7:49:00 EST, Height/Length Dosing, 118.7, kg, 07/08/24 7:49:00 EST, Weight Dosing Start Date: 07/08/24 Status: Ordered metformin HCl (M ETFORMIN ORAL) Take by mouth. 0 Active Comment on above: Take by mouth. Take 500 mg by mouth twice daily. methylPREDNISolone 4 mg oral tablet (1 source) Corticosteroid Start: End: Medrol Dosepack 4 mg Tab = 1 packet(s), Oral, As Directed, as directed on package labeling, X 6 day(s), # 21 tab(s), Refills(s) 0, Pharmacy: [facility]/pharmacy #[id number], 188, cm, 06/09/23 13:56:00 EST, Height/Length Dosing, 127.9, kg, 03/17/23 11:18:00 EDT, Weight Dosing Start Date: 06/09/23 Stop Date: 06/15/23 Status: Ordered nitroglycerin 0.4 mg sublingual tablet (3 sources) Nitrate Vasodilator Start: take 0.4 mg under the tongue once daily Nitroglycerin Active 0.4 MG SUBLINGUAL Daily December 06, 2020 12:00am 60 actuat olodaterol 0.0025 mg/actuat / tiotropium 0.0025 mg/actuat inhalation spray (20 sources) Anticholinergic, beta2-Adrenergic Agonist Start: Stiolto Respimat 2.5 mcg-2.5 mcg inhalation aerosol See Instructions, INHALE 2 PUFFS EVERY 24 HOURS, # 12 gm, Refills(s) 4, Pharmacy: [facility], 188, cm, 04/15/24 10:23:00 EDT, Height/Length Dosing, 120.6, kg, 04/15/24 10:23:00 EDT, Weight Dosing Start Date: 05/24/24 Status: Ordered Start: 11-04-2023 Stiolto Respim at 2.5 mcg-2.5 mcg inhalation aerosol See Instructions, INHALE 2 PUFFS EVERY 24 HOURS, # 12 gm, Refills(s) 3, Pharmacy: [facility], 188, cm, 09/15/23 9:16:00 EDT, Height/Length Dosing, 127, kg, 09/15/23 9:16:00 EDT, Weight Dosing Start Date: 11/04/23 Status: Ordered Start: 08-04-2023 Stiolto Respim at 2.5 mcg-2.5 mcg inhalation aerosol = 2 puff(s), Inhalation, q24hr, # 4 gm, Refills(s) 3, Pharmacy: [facility], 188, cm, 06/09/23 13:56:00 EST, Height/Length Dosing, 127.9, kg, 03/17/23 11:18:00 EDT, Weight Dosing Start Date: 08/04/23 Status: Ordered Start: 09-12-2022 Stiolto Respim at 2.5 mcg-2.5 mcg inhalation aerosol = 2 puff(s), Inhalation, q24hr, # 4 gm, Refills(s) 3, Pharmacy: [facility], 193, cm, 08/29/22 13:11:00 EST, Height/Length Dosing, 128.8, kg, 08/29/22 13:11:00 EST, Weight Dosing Start Date: 09/12/22 Status: Ordered Start: 02-19-2021 Stiolto Respim at 2.5 mcg-2.5 mcg inhalation aerosol puff(s), Inhalation, q24hr, Refills(s) 0 Start Date: 02/19/21 Status: Ordered Start: 12-06-2020 Tiotropium-Olo daterol (Stiolto Respimat) 2.5-2.5 mcg/actuation mist Active 2 INH INHALATION Every morning December 06, 2020 11:36am Start: 12-06-2020 Tiotropium-Olo daterol (Stiolto Respimat) 2.5-2.5 mcg/actuation mist Active 2 INH INHALATION Every morning December 06, 2020 12:00am tiotropium-oloda terol (Stiolto Respimat) 2.5-2.5 MCG/ACT aerosol solution inhaler Inhale 2 Inhalation in the morning. Active Stiolto Respimat 2.5-2.5 MCG/ACT Inhalation for 90 Days Active tiotropium-oloda terol (STIOLTO RESPIMAT) 2.5-2.5 mcg/actuation Inhale 2 Puffs as instructed once daily. 0 Active Comment on above: Inhale 2 Puffs as in structed once daily. [place] 6-Wzh-Qjh-Fish Oil (Fish Oil) 1,000 mg (120 mg-180 mg) Capsule (3 sources) Start: 12-06-2020 take 2 capsules by mouth once daily in the morning [place] 2-Ume-Vix-Fish Oil (Fish Oil) 1,000 mg (120 mg-180 mg) Capsule Active 2 CAP PO Every morning December 06, 2020 11:36am Start: 12-06-2020 take 1 capsule by [facility] once daily in the morning [place] 8-Dvb-Vgz-Fish Oil (Fish Oil) 1,000 mg (120 mg-180 mg) Capsule Active 1 CAP PO Every morning December 06, 2020 12:00am [place]-3 Fatty Acids (Fish Oil) 1000 MG capsule delayed-release (18 sources) take 1 capsule by mouth in the morning [place]-3 Fatty Acids (Fish Oil) 1000 MG capsule delayed-release Take 1,000 mg by mouth in the morning. Active omeprazole 40 mg delayed release oral capsule (5 sources) Proton Pump Inhibitor Start: 07-12-19 25 omeprazole 40 mg Cap-DR See Instructions, TAKE 1 CAPSULE EVERY DAY, # 90 cap(s), Refills(s) 4, Pharmacy: [facility], 188, cm, 07/08/24 7:49:00 EST, Height/Length Dosing, 118.7, kg, 07/08/24 7:49:00 EST, Weight Dosing Start Date: 07/12/24 Status: Ordered Start: 09-11-2023 take 1 capsule by [facility] once daily omeprazole 40 mg Cap-DR 40 mg = 1 cap(s), Oral, Daily, # 90 cap(s), Refills(s) 0, Pharmacy: [facility], 188, cm, 09/11/23 8:13:00 EDT, Height/Length Dosing, 123.6, kg, 09/11/23 8:13:00 EDT, Weight Dosing Start Date: 09/11/23 Status: Ordered predniSONE 20 mg oral tablet (2 sources) Start: 07-08-2024 predniSONE 20 mg Tab TAKE 3 TABS DAILY X3 DAYS, THEN 2 TABS X3 DAYS, 1 TAB X3 DAYS, THEN 1/2 TAB X4 DAYS Start Date: 07/08/24 Status: Ordered rOPINIRole 1 mg oral tablet (20 sources) Nonergot Dopamine Agonist Start: 07-15-2024 take 1 tablet by mouth twice daily ropinirole 1 mg Tab See Instructions, TAKE 1 TABLET BY MOUTH TWICE A DAY, # 180 tab(s), Refills(s) 0, Pharmacy: [facility] [id number], 188, cm, 07/08/24 7:49:00 EST, Height/Length Dosing, 118.7, kg, 07/08/24 7:49:00 EST, Weight Dosing Start Date: 07/15/24 Status: Ordered Start: 05-24-2024 take 1 tablet by patricia twice daily ropinirole 1 mg Tab 1 mg = 1 tab(s), Oral, BID, # 180 tab(s), Refills(s) 4, Pharmacy: [facility], 188, cm, 04/15/24 10:23:00 EDT, Height/Length Dosing, 120.6, kg, 04/15/24 10:23:00 EDT, Weight Dosing Start Date: 05/24/24 Status: Ordered Start: 04-15-2024 take 1 tablet by patricia twice daily ropinirole 1 mg Tab 1 mg = 1 tab(s), Oral, BID, # 180 tab(s), Refills(s) 0, Pharmacy: [facility]/pharmacy #[id number], 188, cm, 04/15/24 10:23:00 EDT, Height/Length Dosing, 120.6, kg, 04/15/24 10:23:00 EDT, Weight Dosing Start Date: 04/15/24 Status: Ordered Start: 12-18-2023 take 1 tablet by patricia twice daily ropinirole 1 mg Tab 1 mg = 1 tab(s), Oral, BID, # 180 tab(s), Refills(s) 0, Pharmacy: [facility], 189, cm, 12/18/23 9:00:00 EDT, Height/Length Dosing, 122.6, kg, 12/18/23 9:00:00 EDT, Weight Dosing Start Date: 12/18/23 Status: Ordered Start: 04-27-2016 take 0.5 mg by mouth twice daily Ropinirole Active 0.5 MG PO Twice daily December 06, 2020 12:00am Start: 08-29-2015 rOPINIRole (RE QUIP) 0.5 mg tablet Comment on above: Take 0.5 mg by mouth twice daily. spironolactone 25 mg oral tablet (4 sources) Aldosterone Antagonist Start: 12-07-19 take 25 mg by mouth once daily Spironolactone Active 25 MG PO Daily December 06, 2020 12:00am take 1 tablet by mouth every twe lve hours sulfamethoxazole 800 mg / trimethoprim 160 mg oral tablet (6 sources) Dihydrofolate Reductase Inhibitor Antibacterial, Sulfonamide Antimicrobial Start: 05-24-2024 End: 07-23-2024 take 1 tablet by mouth once daily sulfamethoxazole-trimethoprim 800 mg-160 mg Tab 1 tab(s), Oral, Daily for 30 day(s), 90 tab(s), Refill(s) 1, [facility], 188, cm, 04/15/24 10:23:00 EDT, Height/Length Dosing, 120.6, kg, 04/15/24 10:23:00 EDT, Weight Dosing Start Date: 05/24/24 Stop Date: 07/23/24 Status: Ordered Start: 01-29-2024 End: 07-27-2024 sulfamethoxazole-trimethopri m 800 mg-160 mg Tab 1 tab(s), Oral, Every other day for 90 day(s), 45 tab(s), Refill(s) 1, TAKE 1 TABLET BY MOUTH EVERY OTHER DAY, [facility]/pharmacy #[id number], 188, cm, 01/29/24 10:25:00 EDT, Height/Length Dosing, 123, kg, 01/29/24 10:25:00 EDT, Weight Dosing Start Date: 01/29/24 Stop Date: 07/27/24 Status: Ordered Start: 09-15-2023 Bactrim D.S. 8 00 mg-160 mg Tab 1 tab(s), Oral, Daily, 30 tab(s), Refill(s) 4, [facility]/pharmacy #[id number], 188, cm, 09/15/23 9:16:00 EDT, Height/Length Dosing, 127, kg, 09/15/23 9:16:00 EDT, Weight Dosing Start Date: 09/15/23 Status: Ordered tamsulosin hydrochloride 0.4 mg oral capsule (20 sources) alpha-Adrenergic Chapis Start: 05-31-2024 take 1 capsule by mouth once daily tamsulosin 0.4 mg Cap 0.4 mg = 1 cap(s), Oral, Daily, # 90 cap(s), Refills(s) 4, [id number] 188, cm, 04/15/24 10:23:00 EDT, Height/Length Dosing, 120.6, kg, 04/15/24 10:23:00 EDT, Weight Dosing Start Date: 05/31/24 Status: Ordered Start: 08-04-2023 take 1 capsule by [facility] once daily tamsulosin 0.4 mg Cap 0.4 mg = 1 cap(s), Oral, Daily, # 90 cap(s), Refills(s) 3, Pharmacy: [facility], 188, cm, 06/09/23 13:56:00 EST, Height/Length Dosing, 127.9, kg, 03/17/23 11:18:00 EDT, Weight Dosing Start Date: 08/04/23 Status: Ordered Start: 04-02-2016 End: 12-12-2021 take 1 capsule by mouth once daily tamsulosin 0.4 mg Cap 0.4 mg = 1 cap(s), Oral, Daily, # 90 cap(s), Refills(s) 3, Pharmacy: [facility], 188, cm, 06/09/23 13:56:00 EST, Height/Length Dosing, 127.9, kg, 03/17/23 11:18:00 EDT, Weight Dosing Start Date: 08/04/23 Status: Ordered Start: 04-02-2016 tamsulosin ER (FLOMAX) 0.4 mg cp24 Indications: Prostate cancer (HCC) twice daily. 0 04/02/2016 Active take 1 capsule by mo ut every twenty-four hours in the morning tamsulosin (Flomax) 0.4 MG 24 hr capsule Take 0.4 mg by mouth in the morning. Active Comment on above: twice daily. Take by mouth once d aily. terazosin 2 mg oral capsule (20 sources) alpha-Adrenergic Chapis Start: 03-11-2016 take 1 capsule by mouth once daily at bedtime terazosin 2 mg Cap 2 mg = 1 cap(s), Oral, Once a day (at bedtime), # 90 cap(s), Refills(s) 4, Pharmacy: [facility]/pharmacy #[id number], 188, cm, 04/15/24 10:23:00 EDT, Height/Length Dosing, 120.6, kg, 04/15/24 10:23:00 EDT, Weight Dosing Start Date: 05/31/24 Status: Ordered Comment on above: Take by mouth daily at bedtime. Vitamin D3 (1 source) Start: 08-31-2019 Vitamin D3 Refills(s) 0 Start Date: 08/31/19 Status: Ordered Vitamin D3 2000 intl units (18 sources) Start: 08-26-2022 Vitamin D3 2000 intl [...] on above: Take 2 tablets by mo ut every 6 hours as needed for pain. amoxicillin 500 mg / clavulanate 125 mg oral tablet (2 sources) Penicillin-class Antibacterial Start: 10-23-2021 End: 12-12-2021 take 1 tablet by mouth twice daily amoxicillin-clavul anic acid (AUGMENTIN) 500-125 mg per tablet Take 1 tablet by mouth twice daily. 0 10/23/2021 12/12/2021 Discontinued (Course of therapy completed) Comment on above: Take 1 tablet by patricia twice daily. carvedilol 12.5 mg oral tablet (2 sources) alpha-Adrenergic Chapis, beta-Adrenergic Chapis Start: 07-28-2024 take 1 tablet by mouth twice daily at mealtime carvedilol 12.5 mg Tab 12.5 mg = 1 tab(s), Oral, BID, TAKE 1 TABLET BY MOUTH TWICE A DAY WITH FOOD/MEAL, # 90 tab(s), Refills(s) 0, Pharmacy: [facility], 188, cm, 07/08/24 7:49:00 EST, Height/Length Dosing, 118.7, kg, 07/08/24 7:49:00 EST, Weight Dosing Start Date: 07/28/24 Status: Ordered cholecalciferol, vitamin D3, (D3-2000 ORAL) (12 sources) [...] Comment on above: Take 1 capsule by [facility] as directed for 1 dose. one (1) hour prior to exam. doxycycline hyclate 100 mg oral capsule (3 sources) Tetracycline-class Drug Start: End: take 1 capsule by mouth twice daily doxycycline hyclate (VIBRAMYCIN) 100 mg capsule Take 1 capsule by mouth twice daily. 10 capsule 0 10/25/2021 12/12/2021 Discontinued (Course of therapy completed) Comment on above: Take 1 capsule by [facility] twice daily. lisinopril 20 mg oral tablet (3 sources) Angiotensin Converting Enzyme Inhibitor Start: End: lisinopril (ZESTRIL, PRINIVIL) 20 mg tablet Melatonin (2 sources) Start: Melatonin 5 mg, Once a day (at bedtime), one tab at bedtime, Refills(s) 0 Start Date: 11/25/23 Status: Ordered Granger-3 Fatty Acids, FISH OIL, (FISH OIL) 360-1,200 mg cap (12 sources) Granger-3 Fatty Ac ids, FISH OIL, (FISH OIL) 360-1,200 mg cap Take 1 capsule by mouth. 0 Active Comment on above: Take 1 capsule by [facility]. oxybutynin chloride 5 mg oral tablet [...] Comment on above: Take 1 tablet by [facility] three times daily as needed (Bladder spasms). Do not take within 24 hours of catheter removal OXYGEN, HOME THERAPY, (9 sources) OXYGEN, HOME THE RAPY, by Nasal Cannula route as directed. at bedtime 2.5 L/min 0 Active Comment on above: by Nasal Cannula rou te as directed. at bedtime 2.5 L/min Problems Active Problems Problem Classification Problem Date Documented Da te Episodic/Chronic Abdominal pain (2 sources) Abdominal pain; Translations: [Unspecified abdominal pain] Onset: 12-09-2022 Episodic Acute cerebrovascular disease (17 sources) Cerebrovascular accident; Translations: [Cerebral infarction, unspecified] Onset: 03-01-2024 12-16-2023 Chronic Cancer of prostate (12 sources) Malignant tumor of prostate; Translations: [Malignant neoplasm of prostate] Onset: 05-23-2016 05-23-2016 Chronic Chronic obstructive pulmonary disease and bronchiectasis (20 sources) Chronic obstructive lung disease; Translations: [Chronic obstructive pulmonary disease, unspecified] Onset: 09-13-2022 Chronic Diabetes mellitus without complication (20 sources) Diabetes mellitus; Translations: [Type 2 diabetes mellitus without complications] Onset: 10-01-2021 04-30-2021 Chronic Comment on above: linked DM with HLD p er OP CDI policy. Disorders of lipid metabolism (20 sources) Hypercholesterolemia; Translations: [Pure hypercholesterolemia, unspecified] Onset: 01-02-2022 Chronic Esophageal disorders (20 sources) Gastro-esophageal reflux disease without esophagitis; Translations: [Gastroesophageal reflux disease] Onset: 01-02-2022 03-17-2023 Chronic Essential hypertension (20 sources) Hypertensive disorder; Translations: [Essential (primary) hypertension] Onset: 01-02-2022 Chronic Genitourinary symptoms and ill-defined conditions (18 sources) Urinary catheter in situ 08-26-2022 Chronic Hyperplasia of prostate (20 sources) Benign prostatic hypertrophy with outflow obstruction; Translations: [Benign prostatic hyperplasia with lower urinary tract symptoms] Onset: 01-02-2022 Chronic Inflammatory conditions of male genital organs (20 sources) Chronic prostatitis; Translations: [Chronic prostatitis] Onset: 12-09-2022 09-06-2019 Chronic Mood disorders (1 source) Major depressive disorder, single episode, unspecified; Translations: [AMBER DEPRESS D/O SINGLE EPIS UNS] Onset: 01-02-2022 Chronic Osteoarthritis (20 sources) Arthritis; Translations: [Arthritis of right hip] 08-31-2019 Chronic Other aftercare (2 sources) Post-discharge follow-up 07-08-2024 Episodic Other diseases of kidney and ureters (20 sources) Renal mass; Translations: [Other specified disorders of kidney and ureter] Onset: 03-23-2021 03-23-2021 Chronic Other diseases of kidney and ureters (1 source) Disorder of kidney and/or ureter; Translations: [Other specified disorders of kidney and ureter] 04-13-2021 Chronic Other diseases of kidney and ureters (1 source) Urinary tract obstruction; Translations: [Other obstructive and reflux uropathy] Onset: 08-02-2024 Episodic Other gastrointestinal disorders (5 sources) Dysphagia; Translations: [Dysphagia, unspecified] 06-04-2023 Episodic Other hereditary and degenerative nervous system conditions (1 source) Restless legs syndrome; Translations: [RESTLESS LEGS SYNDROME] Onset: 01-02-2022 Chronic Other hereditary and degenerative nervous system conditions (20 sources) Restless legs; Translations: [Restless legs syndrome] Onset: 03-01-2024 12-18-2023 Chronic Other lower respiratory disease (2 sources) Cough 10-15-2022 Episodic Other lower respiratory disease (2 sources) Dyspnea 10-15-2022 Episodic Other lower respiratory disease (1 source) Snoring Episodic Other male genital disorders (18 sources) Impotence 09-06-2019 Chronic Other male genital disorders (10 sources) Swelling of scrotum 05-23-2021 Episodic Other non-traumatic joint disorders (4 sources) Hip pain 03-01-2024 Episodic Other nutritional; endocrine; and metabolic disorders (11 sources) Obese class I; Translations: [Obesity, unspecified] Chronic Other nutritional; endocrine; and metabolic disorders (20 sources) Body mass index 30+ - obesity; Translations: [Body mass index (BMI) 37.0-37.9, adult] Onset: 03-01-2024 08-26-2022 Chronic Other nutritional; endocrine; and metabolic disorders (1 source) Body mass index (BMI) 37.0-37.9, adult Chronic Other nutritional; endocrine; and metabolic disorders (1 source) Obesity; Translations: [Other obesity due to excess calories] Onset: 06-09-2023 Chronic Other nutritional; endocrine; and metabolic disorders (1 source) Obese class II; Translations: [Body mass index (BMI) 36.0-36.9, adult] Onset: 06-09-2023 Chronic Other nutritional; endocrine; and metabolic disorders (20 sources) Severe obesity; Translations: [Class 3 severe obesity due to excess calories in adult] Onset: 03-01-2024 12-17-2023 Chronic Other screening for suspected conditions (not mental disorders or infectious disease) (4 sources) Patient encounter status; Translations: [Encounter for screening for other disorder] Onset: 08-27-2022 Episodic Other upper respiratory infections (20 sources) Sinusitis; Translations: [Chronic pansinusitis] Onset: 03-10-2023 08-12-2023 Chronic Other upper respiratory infections (8 sources) Acute upper respiratory infection 06-09-2023 Episodic Residual codes; unclassified (1 source) Sleep apnea; Translations: [Sleep apnea, unspecified] Chronic Residual codes; unclassified (20 sources) Obstructive sleep apnea syndrome; Translations: [Obstructive sleep apnea (adult) (pediatric)] Onset: 03-10-2023 12-17-2023 Chronic Comment on above: noted in 12/16/2023 Sleep Lab Consult Note page 7. added per OP CDI policy. Residual codes; unclassified (2 sources) Hypoxia; Translations: [Idiopathic sleep related nonobstructive alveolar hypoventilation] 12-16-2023 Chronic Residual codes; unclassified (2 sources) Idiopathic sleep related nonobstructive alveolar hypoventilation; Translations: [Idiopathic sleep related non-obstructive alveolar hypoventilation] Chronic Residual codes; unclassified (2 sources) Sleep apnea, unspecified; Translations: [Sleep apnea, unspecified] Onset: 05-06-2023 Chronic Residual codes; unclassified (5 sources) Idiopathic sleep related non-obstructive alveolar hypoventilation 12-17-2023 Chronic Comment on above: noted in 12/16/2023 Sleep Lab Consult Note page 7. added per OP CDI policy. Residual codes; unclassified (2 sources) Obstructive sleep apnea (adult) (pediatric); Translations: [Obstructive sleep apnea (adult)(pediatric)] Onset: 09-01-2023 12-16-2023 Chronic Residual codes; unclassified (11 sources) Swelling; Translations: [Edema, unspecified] Episodic Respiratory failure; insufficiency; arrest (adult) (20 sources) Dependence on supplemental oxygen; Translations: [Dependence on supplemental oxygen] Onset: 03-01-2024 Chronic Respiratory failure; insufficiency; arrest (adult) (1 source) Respiratory failure; insufficiency; arrest (adult) 12-18-2023 Comment on above: added per 12/17/2023 query response. Screening and history of mental health and substance abuse codes (20 sources) Ex-smoker; Translations: [Personal history of nicotine dependence] Onset: 08-05-2022 Episodic Unclassified (1 source) MACULAR HOLE LEFT E YE / MACULAR HOLE LEFT E YE() Onset: 10-16-2017 Unclassified (19 sources) Non-smoker 08-26-2022 Unclassified (3 sources) CHRN [...] Problem Classification Problem Date Documented Date Episodic/Chronic Cancer of prostate (20 sources) History of malignant neoplasm of prostate; Translations: [Personal history of malignant neoplasm of prostate] Onset: 04-30-2021 04-30-2021 Episodic Conditions associated with dizziness or vertigo (20 sources) Benign paroxysmal positional vertigo; Translations: [Benign paroxysmal vertigo, unspecified ear] Onset: 03-05-2023 08-29-2022 Episodic Fever of unknown origin (1 source) Fever, unspecified; Translations: [FEVER UNSPECIFIED] Onset: 01-02-2022 Episodic Genitourinary symptoms and ill-defined conditions (20 sources) Retention of urine; Translations: [Retention of urine, unspecified] Onset: 04-30-2021 Episodic Other aftercare (1 source) Other correction (current) drug therapy; Translations: [OTH MCC CURRENT DRUG THERAPY] Onset: 01-02-2022 Episodic Other diseases of veins and lymphatics (20 sources) Varicocele; Translations: [Scrotal varices] Onset: 03-05-2023 05-23-2021 Episodic Other non-traumatic joint disorders (4 sources) Pain in right hip joint; Translations: [Pain in right hip] 03-01-2024 Episodic Residual codes; unclassified (1 source) Other specified postprocedural states; Translations: [OTH SPECIFIED POSTPROCEDURAL STATES] Onset: 01-02-2022 Episodic Spondylosis; intervertebral disc disorders; other back problems (20 sources) Chronic back pain ; Translations: [Dorsalgia, unspecified] Onset: 04-30-2021 04-30-2021 Episodic Unclassified (1 source) MACULAR HOLE LEFT E YE; Translations: [MACULAR HOLE LEFT E YE] Onset: 10-16-2017 Unclassified (1 source) CHRN KIDNEY DISEASE STG 3 UNSP; Translations: [CHRN KIDNEY DISEASE STG 3 UNSP] Onset: 01-16-2022 Unclassified (2 sources) Preprocedural examination done 08-16-2024 Results Test Name Value Interpretation Reference Range Facil ity Progress Note - Nurseon Progress Note - Nurse PAT chart for 09-10-2024 surgery reviewed by anesthesiologist Dr Quan on 08-23-2024- no additional orders received. [Electronically Signed on: 08/23/2024 10:16 EST] Darling Wahl RN [Verified on: 08/23/2024 10:16 EST] Darling Wahl RN [facility] Provider Orderson 08-23-2024 Provider Orders [id number] Normal [facility] .Auto Diff 1on 08-20-2024 Auto Grayson % 10 % Normal 07-04 [facility] Comment on above: Performed By: #### 7 [id number], [id number], [id number] #### [facility] (DEFAULT) [address] [place] [address] Baso Abs# 0.1 x10 Normal 0.0-0.2 [facility] Comment on above: Performed By: #### 7 [id number], [id number], [id number] #### [facility] (DEFAULT) [address] [place] [address] 86323 Basophils/100 WBC (Bld) 1.1 % Normal 0.2-2.0 [facility] Comment on above: Performed By: #### 7 [id number], [id number], [id number] #### [facility] (DEFAULT) [address] [place] [address] 69819 Eos Abs# 0.2 x10 Normal 0.0-0.4 [facility] Comment on above: Performed By: #### 7 [id number], [id number], [id number] #### [facility] (DEFAULT) [address] [place] [address] 10493 Eosinophils/100 WBC (Bld) 3.5 % Normal 0.9-4.0 [facility] Comment on above: Performed By: #### 7 [id number], [id number], [id number] #### [facility] (DEFAULT) [address] [place] [address] 98305 Lymph Abs# 0.9 x10 Low 1.3-2.9 [facility] Comment on above: Performed By: #### 7 [id number], [id number], [id number] #### [facility] (DEFAULT) [address] [place] [address] 58555 Lymphocytes/100 WBC (Bld) 16 % Normal 14-48 [facility] Comment on above: Performed By: #### 7 [id number], [id number], [id number] #### [facility] (DEFAULT) [address] [place] [address] 27576 Grayson Abs# 0.6 x10 Normal 0.0-0.8 [facility] Comment on above: Performed By: #### 7 [id number], [id number], [id number] #### [facility] (DEFAULT) [address] [place] [address] 85290 Neut Abs# 4.0 x10 Normal 1.5-9.2 [facility] Comment on above: Performed By: #### 7 [id number], [id number], [id number] #### [facility] (DEFAULT) [address] [place] [address] 94242 Neutrophils/100 WBC (Bld) 70 % Normal 44-88 [facility] Comment on above: Performed By: #### 7 [id number], [id number], [id number] #### [facility] (DEFAULT) [address] [place] [address] 35347 BMP Standardon 08-20-2024 Breakpoint Chem Normal [facility] Comment on above: Performed By: #### 7 [id number], [id number], [id number] #### [facility] (DEFAULT) [address] [place] [address] 54941 eGFR Non AA >60 Invalid Interpretation Code [facility] Comment on above: Performed By: #### 7 [id number], [id number], [id number] #### [facility] (DEFAULT) [address] [place] [address] 37251 eGFR AA >60 Invalid Interpretation Code [facility] Comment on above: Performed By: #### 7 [id number], [id number], [id number] #### [facility] (DEFAULT) [address] [place] [address] 82585 Anion gap [Moles/Vol] 9.7 mmol/L Normal 5.0-19.0 [facility] Comment on above: Performed By: #### 7 [id number], [id number], [id number] #### [facility] (DEFAULT) [address] [place] [address] 72572 Calcium [Mass/Vol] 8.9 mg/dL Normal 8.9-10.3 [facility] Comment on above: Performed By: #### 7 [id number], [id number], [id number] #### [facility] (DEFAULT) [address] [place] [address] 64526 Chloride [Moles/Vol] 106 mmol/L Normal 101-111 [facility] Comment on above: Performed By: #### 7 [id number], [id number], [id number] #### [facility] (DEFAULT) [address] [place] [address] 90407 CO2 [Moles/Vol] 26 mmol/L Normal 21-32 [facility] Comment on above: Performed By: #### 7 [id number], [id number], [id number] #### [facility] (DEFAULT) [address] [place] [address] 69397 Creatinine [Mass/Vol] 0.94 mg/dL Normal 0.90-1.30 [facility] Comment on above: Performed By: #### 7 [id number], [id number], [id number] #### [facility] (DEFAULT) [address] [place] [address] 10197 Glucose [Mass/Vol] 119.0 mg/dL High 74.0-118.0 [facility] Comment on above: Performed By: #### 7 [id number], [id number], [id number] #### [facility] (DEFAULT) [address] [place] [address] 79218 Osmolality 276 mOsm/L Invalid Interpretation Code [facility] Comment on above: Performed By: #### 7 [id number], [id number], [id number] #### [facility] (DEFAULT) [address] [place] [address] 55199 Potassium [Moles/Vol] 3.7 mmol/L Normal 3.6-5.1 [facility] Comment on above: Performed By: #### 7 [id number], [id number], [id number] #### [facility] (DEFAULT) [address] [place] [address] 83539 Sodium [Moles/Vol] 138.0 mmol/L Normal 136.0-144.0 [facility] Comment on above: Performed By: #### 7 [id number], [id number], [id number] #### [facility] (DEFAULT) [address] [place] [address] 32472 Urea nitrogen [Mass/Vol] 11 mg/dL Normal 8-26 [facility] Comment on above: Performed By: #### 7 [id number], [id number], [id number] #### [facility] (DEFAULT) [address] [place] [address] 57317 Urea nitrogen/Creatinin e [Mass ratio] 11.7 mg/mg Normal 4.6-16.2 [facility] Comment on above: Performed By: #### 7 [id number], [id number], [id number] #### [facility] (DEFAULT) [address] [place] [address] CBC w/ Auto Diffon 5 Man Diff? Auto Normal [facility] Comment on above: Performed By: #### 7 [id number], [id number] #### [facility] (DEFAULT) [address] [place] [address] Erythrocyte distribution width (RBC) [Ratio] 17.1 % High 11.5-15.0 [facility] Comment on above: Performed By: #### 7 [id number], [id number], [id number] #### [facility] (DEFAULT) [address] [place] [address] Hematocrit (Bld) [Volume fraction] 38.4 % Normal 34.8-51.9 [facility] Comment on above: Performed By: #### 7 [id number], [id number], [id number] #### [facility] (DEFAULT) [address] [place] [address] Hemoglobin (Bld) [Mass/Vol] 13.0 g/dL Normal 11.8-17.7 [facility] Comment on above: Performed By: #### 7 [id number], [id number] #### [facility] (DEFAULT) [address] [place] [address] MCH (RBC) [Entitic mass] 29 pg Normal 24-34 [facility] Comment on above: Performed By: #### 7 [id number], [id number], [id number] #### [facility] (DEFAULT) [address] [place] [address] MCHC (RBC) [Mass/Vol] 34 g/dL Normal 26-37 [facility] Comment on above: Performed By: #### 7 [id number], [id number], [id number] #### [facility] HE[facility] (DEFAULT) [address] [place] [address] MCV (RBC) [Entitic vol] 86 fL Normal 81-100 [facility] Comment on above: Performed By: #### 7 [id number], [id number], [id number] #### [facility] (DEFAULT) [address] [place] [address] 74869 Platelet 202 x10 Normal 138-427 [facility] Comment on above: Performed By: #### 7 [id number], [id number], [id number] #### [facility] (DEFAULT) [address] [place] [address] 95006 Platelet mean volume (Bld) [Entitic vol] 9.2 fL Normal 6.3-10.2 [facility] Comment on above: Performed By: #### 7 [id number], [id number], [id number] #### [facility] (DEFAULT) [address] [place] [address] 75680 RBC 4.48 x10 Normal 3.70-5.30 [facility] Comment on above: Performed By: #### 7 [id number], [id number], [id number] #### [facility] (DEFAULT) [address] [place] [address] 16135 WBC 5.8 x10 Normal 3.5-10.5 [facility] Comment on above: Performed By: #### 7 [id number], [id number], [id number] #### [facility] (DEFAULT) [address] [place] [address] HgbA1c Standardon 08-20-2024 .Hb 12.9 Invalid Interpretation Code [facility] Comment on above: Performed By: #### 1 [id number] #### [facility] (DEFAULT) [address] [place] [address] 40603 .Hgb A1c 0.53 g/dL Invalid Interpretation Code [facility] Comment on above: Performed By: #### 1 [id number] #### [facility] (DEFAULT) [address] [place] [address] 69143 Glucose [Mass/Vol] 123 mg/dL Invalid Interpretation Code [facility] Comment on above: Performed By: #### 1 [id number] #### [facility] (DEFAULT) [address] [place] [address] 76465 HbA1c (Bld) [Mass fraction] 5.9 % Normal 4.6-6.2 [facility] Comment on above: Performed By: #### 1 [id number] #### [facility] (DEFAULT) [address] [place] [address] UA [id number] 08-20-2024 UA Bacteria Trace [facility] Comment on above: Order Comment: Urina lysis Microscopic order added on by Sp[employer] Expert Rules system. Performed By: #### 1 [id number], [id number] #### [facility] (DEFAULT) [address] [place] [address] UA RBC 0-2 [facility] Comment on above: Order Comment: Urina lysis Microscopic order added on by [employer] Rules system. Performed By: #### 1 [id number], [id number] #### [facility] (DEFAULT) [address] [place] [address] UA Squam Epi Few [facility] Comment on above: Order Comment: Urina lysis Microscopic order added on by [employer] Rules system. Performed By: #### 1 [id number], [id number] #### [facility] (DEFAULT) [address] [place] [address] UA WBC 0-2 [facility] Comment on above: Order Comment: Urina lysis Microscopic order added on by [employer] Rules system. Performed By: #### 1 [id number], [id number] #### [facility] (DEFAULT) [address] [place] [address] UA w Culture if Ind Standard on 08-20-2024 Breakpoint UA [facility] Comment on above: Performed By: #### 1 [id number], [id number] #### [facility] (DEFAULT) [address] [place] [address] Color (U) Straw [facility] Comment on above: Performed By: #### 1 [id number], [id number] #### [facility] (DEFAULT) [address] [place] [address] Culture? Not Indicated Invalid Interpretation Code [facility] Comment on above: Result Comment: Resu lt created by rule GL_MAGR_ADD_UA_CULT Result created by rule GL_MAGR_ADD_UA_CULT Result created by rule GL_MAGR_ADD_UA_CULT1 Performed By: #### 1 [id number], [id number] #### [facility] (DEFAULT) [address] [place] [address] Glucose (U) [Mass/Vol] Negative Normal [facility] Comment on above: Performed By: #### 1 [id number], [id number] #### [facility] (DEFAULT) [address] [place] [address] Ketones Ql (U) Negative Normal [facility] Comment on above: Performed By: #### 1 [id number], [id number] #### [facility] (DEFAULT) [address] [place] [address] Micro? Indicated Invalid Interpretation Code [facility] Comment on above: Result Comment: Resu lt created by rule GL_MAGR_ADD_UA_MICRO Performed By: #### 1 [id number], [id number] #### [facility] (DEFAULT) [address] [place] [address] UA Bilirubin Negative Normal [facility] Comment on above: Performed By: #### 1 [id number], [id number] #### [facility] (DEFAULT) [address] [place] [address] UA Blood Negative Normal [facility] Comment on above: Performed By: #### 1 [id number], [id number] #### [facility] (DEFAULT) [address] [place] [address] 82075 UA Clarity CLEAR Normal CLEAR [facility] Comment on above: Performed By: #### 1 [id number], [id number] #### [facility] (DEFAULT) [address] [place] [address] 24623 UA Leuk Est TRACE Abnormal NEGATIVE [facility] Comment on above: Performed By: #### 1 [id number], [id number] #### [facility] (DEFAULT) [address] [place] [address] 11989 UA Nitrite Negative Normal NEGATIVE [facility] Comment on above: Performed By: #### 1 [id number], [id number] #### [facility] (DEFAULT) [address] [place] [address] UA pH 6.0 Normal 5-8 [facility] Comment on above: Performed By: #### 1 [id number], [id number] #### [facility] (DEFAULT) [address] [place] [address] UA Protein Negative Normal NEGATIVE [facility] Comment on above: Performed By: #### 1 [id number], [id number] #### [facility] (DEFAULT) [address] [place] [address] UA Spec Grav 1.010 Normal 1.001-1.035 [facility] Comment on above: Performed By: #### 1 [id number], [id number] #### [facility] (DEFAULT) [address] [place] [address] UA Urobilinogen 1.0 mg/dL Normal 0.2-1.0 [facility] Comment on above: Performed By: #### 1 [id number], [id number] #### [facility] (DEFAULT) [address] [place] [address] Urine Source Clean Catch Normal [facility] Comment on above: Performed By: #### 1 [id number], [id number] #### [facility] (DEFAULT) [address] [place] [address] Ambulatory Visit Summaryon 0 08-09-2024 Ambulatory Visit Summary Ambulatory Visit Summary MILAN CAMARILLO :1950 Visit Date:08/09/2024 Ambulatory Visit Instructions Your Diagnosis Incomplete bladder emptying BPH with urinary obstruction Chronic prostatitis History of prostate cancer Your Care Team Attending Physician - ALLIE CHOPRA, Jeremy Avery Primary Care Physician - Joaquim CHOPRA, Raegan Adler This Is Your Medications List tamsulosin (tamsulosin 0.4 mg Cap) terazosin (terazosin 2 mg Cap) Contact prescribing physician if questions or concerns albuterol (albuterol 0.083% Inh Mary 3 mL) aspirin (aspirin 81 mg Oral EC Tab) atorvastatin (atorvastatin 40 mg Tab) benzonatate (benzonatate 100 mg Cap) carvedilol (carvedilol 12.5 mg Tab) cetirizine (cetirizine 10 mg Tab) cholecalciferol (Vitamin D3 2000 intl units) furosemide (furosemide 20 mg Tab) imipramine (imipramine 50 mg oral tablet) irbesartan (irbesartan 75 mg Tab) levofloxacin (levofloxacin 750 mg Tab) metformin (metformin 500 mg Tab) olodaterol-tiotropium (Stiolto Respimat 2.5 mcg-2.5 mcg inhalation aerosol) omeprazole (omeprazole 40 mg Cap-DR) predniSONE (predniSONE 20 mg Tab) ropinirole (ropinirole 1 mg Tab) Procedures Performed TURP - Transurethral resection of prostate (12/21/2021), Colonoscopy (01/10/2021), EGD - Esophagogastroduodenoscop y (01/10/2021), Cystourethroscopy with dilation of urethral stricture (05/07/2017), Brachytherapy (09/19/2016), TURP - Transurethral resection of prostate (04/11/2016), Cystoscopy (04/02/2016), Transrectal biopsy of prostate using ultrasound (US) guidance (07/04/2015), Appendectomy, External beam radiotherapy, Procedure on back. Discharge Vitals Temperature (Temporal Artery) 37 ???C Heart Rate (Peripheral) 65 Respiratory Rate 17 Blood Pressure 132/80 Height 188 cm Height 74 in Weight 119.7 kg Weight 263.893 lb BMI 33.87 What to do next Scheduled Follow-Up Appointments 2024 10:00 AM EDT With: Raegan March MD Where: [address] [id number]- 2024 9:30 AM EDT With: Where: [address] [id number]- Friday 11:15 AM EDT With: Jeremy KELLEY MD Where: [facility] [address] [place] [address]- You Need to Schedule the Following Appointments Follow Up with Jeremy KELLEY MD, URL When: Comments: 6 mos w/ PSA Where: [facility] [address], [place] [address] [id number] You Need to Complete the Following PSA Total, Blood, Routine collect, *Est. 12/07/24 +/- 90 day(s), Order for future visit, Lab Collect, History of prostate cancer, Required & Missing, Print Label By Order Location Medications What How Much When Why Instructions Unchanged tamsulosin (tamsulosin 0.4 mg Cap) 1 Capsules By Mouth Every day Unchanged terazosin (terazosin 2 mg Cap) 1 Capsules By Mouth Once a day (at bedtime) Unchanged albuterol (albuterol 0.083% Inh Mary 3 mL) 3 Milliliter Nebulized inhalation (aerosol) Every 4 hours Contact prescribing physician if questions or concerns Unchanged aspirin (aspirin 81 mg Oral EC Tab) Contact prescribing physician if questions or concerns Unchanged atorvastatin (atorvastatin 40 mg Tab) 1 Tablets By Mouth Every day Contact prescribing physician if questions or concerns Unchanged benzonatate (benzonatate 100 mg Cap) TAKE 1 CAPSULE BY MOUTH EVERY 6 HOURS NEEDED FOR COUGH Contact prescribing physician if questions or concerns Unchanged carvedilol (carvedilol 12.5 mg Tab) 1 Tablets By Mouth 2 times a day TAKE 1 TABLET BY MOUTH TWICE A DAY WITH FOOD/ MEAL Contact prescribing physician if questions or concerns Unchanged cetirizine (cetirizine 10 mg Tab) 1 Tablets By Mouth Every day Sinusitis COPD without exacerbation Type 2 diabetes mellitus without complication, without long-term current use of insulin BMI 34.0-34.9,adult Class 1 obesity due to excess calories in adult Former smoker Contact prescribing physician if questions or concerns Unchanged cholecalciferol (Vitamin D3 2000 intl units) Contact prescribing physician if questions or concerns Unchanged furosemide (furosemide 20 mg Tab) See instructions TAKE 1 TABLET BY MOUTH TWICE A DAY Contact prescribing physician if questions or concerns Unchanged imipramine (imipramine 50 mg oral tablet) See instructions TAKE 1 TABLET TWICE DAILY Contact prescribing physician if questions or concerns Unchanged irbesartan (irbesartan 75 mg Tab) 1 Tablets By Mouth Every day Contact prescribing physician if questions or concerns Unchanged levofloxacin (levofloxacin 750 mg Tab) TAKE 1 TABLET BY MOUTH EVERY DAY FOR 7 DAYS Contact prescribing physician if questions or concerns Unchanged metformin (metformin 500 mg Tab) 1 Tablets By (more content not included)... [facility] Urology Office/Clinic Noteon 08-09-2024 Urology Office/Clinic Note Urology Office/Clinic Note Chief Complaint 6 month f/u HPI Staff 73yr old male pt here for 6mo f/u prostatitis. Switched suppressive Bactrim to QOD, rather than daily. CIC 2-3x per day Previous Dx: chronic prostatitis, history of prostate cancer, BPH with urinary obstruction, incomplete bladder emptying *Tamsulosin 0.4 mg bid and Terazosin 2 mg qd Dysuria: denies Incomplete bladder emptying: CIC 2-3x daily Hematuria: denies Frequency: denies Urgency: once in a while Nocturia: 3x states that he drinks throughout the night Stream: good steady no straining Leaking: denies Post void dripping: denies Wearing pads/ Depends: denies Urge incontinence: denies Stress incontinence: denies Incontinence without Sensory Awareness: denies Abdominal pain: denies Flank pain: denies Sexual complaints: denies History of Present Illness Tests reviewed: reviewed UA I have reviewed the previous health record information and history for this patient from [facility]. I have reviewed and verified the staff HPI to be accurate for this encounter. Review of Systems PHQ Score Initial Depression Screen Score: 0 SCORE ROS - Provider Constitutional: denies weight loss, denies hot flashes. Eyes: denies eye problems. Gastrointestinal: denies nausea, denies vomiting. Cardiovascular: denies chest pain or angina. Integumentary: no dryness Musculoskeletal: denies musculoskeletal symptoms. ENMT: denies otolaryngeal symptoms. Respiratory: no shortness of breath. Heme/Lymph: denies easy bleeding tendency, denies easy bruising tendency. Psychiatric: no confusion, no anxiety. Genitourinary: See HPI. Physical Exam Vitals & Measurements T: 37 ???C(Temporal Artery) HR: 65(Peripheral) RR: 17 BP: 132/80 HT: 74 in HT: 188 cm WT: 119.7 kg WT: 263.893 lb BMI: 33.87 General Appearance: alert, no distress, well nourished, well developed male. Assessment/Plan 1. Incomplete bladder emptying (R33.9: Retention of urine, unspecified) PVR (cc): 12/09/22 - >999 12/09/22 - 746 repeat after end void 09/25/23 - 750 [1] CIC 2-3x/day, typically 2hrs after voiding. Outputs ~20oz. Has smaller outputs if he voids immediately prior to CIC. Advised pt he should be doing CIC after voiding vs waiting a few hours to CIC. Educated pt this will help decrease PVR. -CIC 2-3x/day, right after voiding 2. BPH with urinary obstruction (N40.1: Benign prostatic hyperplasia with lower urinary tract symptoms) S/p TURP 12/21/[address] [facility] [address] Ram - Path showed BPH and radiation effect. Small focus of atypical glands with radiation effect. Taking Tamsulosin 0.4 mg bid and Terazosin 2 mg q. No complaints w stream. -Cont above meds wo changes. Pt to call for refills. 3. Chronic prostatitis (N41.1: Chronic prostatitis) Was on daily Bactrim given he had 6 infections. However now taking Bactrim qod. UA today shows trace-intact blood and small leuks. Asx. Feels suppressive abx works well. Has not had a recent infection. -Cont sx monitoring -Cont Bactrim qod. Pt to call for refills. 4. History of prostate cancer (Z85.46: Personal history of malignant neoplasm of prostate) PSA: 08/26/22 - <0.13 10/15/22 - <0.1 11/28/23 - <0.1 TRUS/bx 07/04/15. EBRT and brachytherapy 2017. [2] -F/u in 6 mos w/ PSA Follow-up With When Contact Information ALLIE CHOPRA, Jeremy Avery, URL [facility] [address] [place] [phone] Additional Instructions: 6 mos w/ PSA Patient Education Clean Intermittent Catheterization, Male I, Maria Guadalupe Julien, personally scribed for Dr. Kelley on 08/09/2024 13:08:32. . Documentation recorded by the scribeMaria Guadalupe, accurately reflects the services(s) I performed and decisions made by me. Authenticated by Dr. Kelley on 08/09/2024 13:14:04. Problem List/Past Medical History Ongoing Arthritis Back pain BMI 33.0-33.9,adult BMI 37.0-37.9, adult BPH with urinary obstruction Chronic prostatitis Class 3 severe obesity due to excess calories in adult COPD without exacerbation Dysphagia GERD (gastroesophageal reflux disease) Hip pain, right History of prostate cancer History of pyelonephritis HLD (hyperlipidemia) Hospital discharge follow-up Hypertension Idiopathic sleep related nonobstructive alveolar hypoventilation Impotence Incomplete bladder emptying Intermittent self-catheterization of bladder Left varicocele Nonsmoker Obesity (BMI 30-39.9) MARQUITA on CPAP Renal mass RLS (restless legs syndrome) Type 2 diabetes mellitus with hyperlipidemia Historical No qualifying data Procedure/Surgical History TURP - Transurethral resection of prostate (12/21/2021), Colonoscopy (01/10/2021), EGD - Esophagogastroduodenoscop y (01/10/2021), Cystourethroscopy with dilation of urethral stricture (05/07/2017), Brachytherapy (09/19/2016), TURP - Transurethral resection of prostate (04/11/2016), Cystosco (more content not included)... Normal [facility] Comment on above: Result Comment: Elec tronically Signed By: Jeremy KELLEY MD\.br\Date and Time Signed: 08/09/24 13:14 EST\.br\Electronically Co-Signed By: Maria Guadalupe Julien\.br\Date and Time Co-Signed: 08/09/24 13:09 EST [facility] Patient Letter [facility] August 02, 2024 MILAN CAMARILLO [address] [place] [id number] : 1950 Dear Mr. Milan Camarillo, You missed your scheduled appointment on:08/02/2024. Please note our appointment slots fill quickly. When you fail to cancel or reschedule an appointment the office is unable to fill the appointment slot that was reserved for you. In the future, we ask that you call 24 hours in advance to cancel your appointment. Our current reminder system gives you the opportunity to cancel by responding to our reminder text, phone call or email. You can also call the office to reschedule during normal business hours or use our on-line scheduling portal at your convenience. Our goal is to provide convenient and quality care to all of our patients. We appreciate your consideration regarding any future cancellations. If you could give us a call to reschedule that appointment the phone number will be listed below. Sincerely, [facility] Medicine Office/Clini c Noteon 07-08-2024 Family Medicine Office/Clinic Note Family Medicine Office/Clinic Note Chief Complaint ER follow up HPI Staff Pt presents today for ER follow up Hospital: [facility] Visit date: 06/29/24 Symptoms the patient presented with: SOB Pt was admitted. DC'd 07/01/2024 CXR 06/29/2024 Current concerns: Concerned with hip replacement. Hospital dc'd atenolol & started carvedilol. History of Present Illness Pt here for follow from his hospitalization. Breathing much better. Finished with Levaquin. Still gets SOB with walking long distances. Wanting to get clearance for surgery. No other concerns today. Reviewed med. Review of Systems PHQ Score Initial Depression Screen Score: 0 SCORE Physical Exam Vitals & Measurements T: 36.2 ???C(Tympanic) HR: 58(Peripheral) RR: 18 BP: 136/84 SpO2: 95% HT: 74 in HT: 188 cm WT: 118.7 kg WT: 261.688 lb BMI: 33.58 General: alert, no acute distress ENMT: oral mucosa moist, Cardiovascular: regular rate and rhythm, normal peripheral perfusion Respiratory: respirations non labored, diminished, Extremities: no deformity, no trauma, antalgic gait Neurological: oriented x 4, LOC appropriate for age, CN II-XII intact, motor strength equal & normal bilaterally, speech normal Abdomen: Soft, Nontender, Non-distended, + BS Assessment/Plan 1. Hospital discharge follow-up (Z09: Encounter for follow-up examination after completed treatment for conditions other than malignant neoplasm) Reviewed TCM and reviewed the hospital discharge instructions. 2. Type 2 diabetes mellitus with hyperlipidemia (E11.69: Type 2 diabetes mellitus with other specified complication) Patient's blood sugars seem to be running within normal limits however he is only giving me a few to look through. Concerned that steroids might increase his blood sugars. Will continue to monitor his A1c's. 3. COPD without exacerbation (J44.9: Chronic obstructive pulmonary disease, unspecified) No exacerbation at this time. Patient's lungs are stable. Patient needs to follow-up with Dr. Sinclair up for surgical clearance after this hospitalization. 4. BMI 33.0-33.9,adult (Z68.33: Body mass index [BMI] 33.0-33.9, adult) 5. Class 3 severe obesity due to excess calories in adult (E66.01: Morbid (severe) obesity due to excess calories) BMI education added 6. Obesity (BMI 30-39.9) (E66.9: Obesity, unspecified) Diet and exercise advised 7. Nonsmoker (Z78.9: Other specified health status) Please continue not to smoke 8. Hip pain, right (M25.551: Pain in right hip) Patient should get clearance with Dr. Dottie hunter for his hip surgery. 9. Hypertension (I10: Essential (primary) hypertension) At goal today with med changes. Will continue to monitor. Orders: atenolol, 50 mg = 1 tab(s), Oral, BID, # 180 tab(s), Refills(s) 4, Pharmacy: [facility]/pharmacy #[id number], 188, cm, 04/15/24 10:23:00 EDT, Height/Length Dosing, 120.6, kg, 04/15/24 10:23:00 EDT, Weight Dosing sulfamethoxazole-trimetho prim, 1 tab(s), Oral, Daily for 30 day(s), 90 tab(s), Refill(s) 1, [facility], 188, cm, 04/15/24 10:23:00 EDT, Height/Length Dosing, 120.6, kg, 04/15/24 10:23:00 EDT, Weight Dosing Total time spent preparing for the encounter, evaluating and assessing the patient, documenting the visit, and ordering appropriate follow-up work was 42 minutes. Follow-up No qualifying data available Problem List/Past Medical History Ongoing Arthritis Back pain BMI 33.0-33.9,adult BMI 37.0-37.9, adult BPH with urinary obstruction Chronic prostatitis Class 3 severe obesity due to excess calories in adult COPD without exacerbation Dysphagia GERD (gastroesophageal reflux disease) Hip pain, right History of prostate cancer History of pyelonephritis HLD (hyperlipidemia) Hospital discharge follow-up Hypertension Idiopathic sleep related nonobstructive alveolar hypoventilation Impotence Incomplete bladder emptying Intermittent self-catheterization of bladder Left varicocele Nonsmoker Obesity (BMI 30-39.9) MARQUITA on CPAP Renal mass RLS (restless legs syndrome) Type 2 diabetes mellitus with hyperlipidemia Historical No qualifying data Procedure/Surgical History TURP - Transurethral resection of prostate (12/21/2021), Colonoscopy (01/10/2021), EGD - Esophagogastroduodenoscop y (01/10/2021), Cystourethroscopy with dilation of urethral stricture (05/07/2017), Brachytherapy (09/19/2016), TURP - Transurethral resection of prostate (04/11/2016), Cystoscopy (04/02/2016), Transrectal biopsy of prostate using ultrasound (US) guidance (07/04/2015), Appendectomy, External beam radiotherapy, Procedure on back. Medications albuterol 0.083% Inh Mary 3 mL, 2.5 mg= 3 mL, NEB, q4hr aspirin 81 mg Oral EC Tab atorvastatin 40 mg Tab, 40 mg= 1 tab(s), Oral, Daily, 4 refills benzonatate 100 mg Cap carvedilol 12.5 mg Tab cetirizine 10 mg Tab, 10 mg= 1 tab(s), Oral, Daily furosemide 20 mg Tab, See Instructions, 3 refills imipramine 50 mg oral tablet, See Instructions, 4 refills irbesartan 75 mg Tab, (more content not included)... Normal [facility] Comment on above: Result Comment: Elec tronically Signed By: Raegan March MD\.br\Date and Time Signed: 07/08/24 08:27 EST Ambulatory Visit Summaryon 0 06-24-2024 Ambulatory Visit Summary Ambulatory Visit Summary RABIA MILAN Avery :1950 Visit Date:06/24/2024 Ambulatory Visit Instructions Your Diagnosis CAP (community acquired pneumonia) BMI 33.0-33.9,adult Obesity (BMI 30-39.9) Nonsmoker Your Care Team Attending Physician - WELLINGTON HOLGUIN CNP Primary Care Physician - Raegan March MD This Is Your Medications List albuterol (albuterol 0.083% Inh Mary 3 mL) aspirin (aspirin 81 mg Oral EC Tab) atenolol (atenolol 50 mg Tab) atorvastatin (atorvastatin 40 mg Tab) cetirizine (cetirizine 10 mg Tab) cholecalciferol (Vitamin D3 2000 intl units) famotidine (famotidine 20 mg Tab) furosemide (furosemide 20 mg Tab) imipramine (imipramine 50 mg oral tablet) irbesartan (irbesartan 75 mg Tab) levofloxacin (levofloxacin 750 mg Tab) metformin (metformin 500 mg Tab) olodaterol-tiotropium (Stiolto Respimat 2.5 mcg-2.5 mcg inhalation aerosol) ropinirole (ropinirole 1 mg Tab) sulfamethoxazole-trimetho prim (sulfamethoxazole-trimeth oprim 800 mg-160 mg Tab) tamsulosin (tamsulosin 0.4 mg Cap) terazosin (terazosin 2 mg Cap) Procedures Performed TURP - Transurethral resection of prostate (12/21/2021), Colonoscopy (01/10/2021), EGD - Esophagogastroduodenoscop y (01/10/2021), Cystourethroscopy with dilation of urethral stricture (05/07/2017), Brachytherapy (09/19/2016), TURP - Transurethral resection of prostate (04/11/2016), Cystoscopy (04/02/2016), Transrectal biopsy of prostate using ultrasound (US) guidance (07/04/2015), Appendectomy, External beam radiotherapy, Procedure on back. Discharge Vitals Temperature (Oral) 36.7 ???C Heart Rate (Peripheral) 66 Respiratory Rate 18 Blood Pressure 142/84 Height 188 cm Height 74 in Weight 118.2 kg Weight 260.586 lb BMI 33.44 What to do next Scheduled Follow-Up Appointments 2024 10:00 AM EST With: Raegan March MD Where: [facility] [address] [id number]- Friday 10:15 AM EST With: Jeremy KELLEY MD Where: [facility] [address] [place] [address] 2024 10:00 AM EDT With: Joaquim CHOPRA, Raegan Adler Where: [address] [address] 2024 9:30 AM EDT With: Where: [address] [address]- You Need to Complete the Following XR Chest 2 Views, 06/24/24, Routine, Order for future visit, Transport Mode: Ambulatory, Reason: Cough, No, CAP (community acquired pneumonia), [id number]_set_[id number] alty, Not Required, [facility] Medications What How Much When Why Instructions New levofloxacin (levofloxacin 750 mg Tab) 1 Tablets By Mouth Every 24 hours CAP (community acquired pneumonia) Duration: 7 Days Pickup at [facility] Unchanged albuterol (albuterol 0.083% Inh Mary 3 mL) 3 Milliliter Nebulized inhalation (aerosol) Every 4 hours Unchanged aspirin (aspirin 81 mg Oral EC Tab) Unchanged atenolol (atenolol 50 mg Tab) 1 Tablets By Mouth 2 times a day Unchanged atorvastatin (atorvastatin 40 mg Tab) 1 Tablets By Mouth Every day Unchanged cetirizine (cetirizine 10 mg Tab) 1 Tablets By Mouth Every day Sinusitis COPD without exacerbation Type 2 diabetes mellitus without complication, without long-term current use of insulin BMI 34.0-34.9,adult Class 1 obesity due to excess calories in adult Former smoker Unchanged cholecalciferol (Vitamin D3 2000 intl units) Unchanged famotidine (famotidine 20 mg Tab) 1 Tablets Unchanged furosemide (furosemide 20 mg Tab) See instructions TAKE 1 TABLET BY MOUTH TWICE A DAY Unchanged imipramine (imipramine 50 mg oral tablet) See instructions TAKE 1 TABLET TWICE DAILY Unchanged irbesartan (irbesartan 75 mg Tab) 1 Tablets By Mouth Every day Unchanged metformin (metformin 500 mg Tab) 1 Tablets By Mouth 2 times a day Unchanged olodaterol-tiotropium (Stiolto Respimat 2.5 mcg-2.5 mcg inhalation aerosol) See instructions INHALE 2 PUFFS EVERY 24 HOURS Unchanged ropinirole (ropinirole 1 mg Tab) 1 Tablets By Mouth 2 times a day Unchanged sulfamethoxazole-trimetho prim (sulfamethoxazole-trimeth oprim 800 mg-160 mg Tab) 1 Tablets By Mouth Every day Duration: 30 Days Unchanged tamsulosin (tamsulosin 0.4 mg Cap) 1 Capsules By Mouth Every day Unchanged terazosin (terazosin 2 mg Cap) 1 Capsules By Mouth Once a day (at bedtime) Pharmacy Information [facility]: [address] [facility] [address] [place], [place] [id number] [phone] Allergies contrast media (iodine-based) (Unknown) inositol (Unknown) shellfish (Unknown) Problems Ongoing - Any problem that you are currently receiving treatment for. Arthritis Back pain BMI 33.0-33.9,adult BMI 37.0-37.9, adult (more content not included)... Normal [facility] Family Medicine Office/Clini c Noteon 06-24-2024 Family Medicine Office/Clinic Note Family Medicine Office/Clinic Note Chief Complaint Acute Sick Visit HPI Staff Dr March pt, presenting today for acute sick visit. LOV06/01/24 tx'd w/steroid, abx & cough meds. SOB & coughing began this past Friday. Did take 2 NEG Covid tests since then. Denies fever. History of Present Illness 73-year-old patient of Dr. March presents today for an acute visit for evaluation of cold symptoms x 3 days. He was seen by Dr. March on 06/01/2024 for fever, chills, & vomiting and prescribed a Medrol Dosepack & a Z-pack. He reports on Friday he started feeling bad again and he took a COVID test and that was negative. He took another COVID test on Friday and that was negative too. He state he had pneumonia a few years ago and this is how he felt then. He reports difficulty breathing and a cough. Review of Systems PHQ Score Initial Depression Screen Score: 0 SCORE Constitutional: no fever, no chills, no sweats, no weakness Skin: no Jaundice, no rash, no lesions, nopetechiae ENMT: no ear pain, no sore throat, no congestion, no hoarseness Respiratory: no shortness of breath, no cough, no orthopnea, no wheezing Cardiovascular: no chest pain, no palpitations, no edema Gastrointestinal: no nausea, no vomiting, no diarrhea, no GI bleeding Genitourinary: no dysuria, no hematuria, no discharge, no pain Musculoskeletal: no back pain, no trauma Neurologic: no headache, no dizziness, no numbness, no weakness Psychiatric: no sleeping problems, no irritability, no mood swings/depression. Heme/Lymph: no bleeding tendency, no bruising tendency, no petechiae, no swollen nodes Allergy/Immunologic: no seasonal allergies, no food allergies, no recurrent infections, no impaired immunity Additional ROS info: Except as noted in the above Review of Systems and in the History of Present Illness all other systems have been reviewed and are negative or noncontributory. Physical Exam Vitals & Measurements T: 36.7 ???C(Oral) HR: 66(Peripheral) RR: 18 BP: 142/84 SpO2: 95% HT: 74 in HT: 188 cm WT: 118.2 kg WT: 260.586 lb BMI: 33.44 General: alert, no acute distress ENMT: TM's clear, oral mucosa moist, yes pharyngeal erythema or exudate Cardiovascular: regular rate and rhythm, normal peripheral perfusion Respiratory: Lungs rales throughout, respirations labored Extremities: no deformity, no trauma Neurological: oriented x 4, LOC appropriate for age speech normal Assessment/Plan 1. CAP (community acquired pneumonia) (J18.9: Pneumonia, unspecified organism) Discussed diagnosis with patient Explained to patient to continue his Stiolto Respimat as ordered Encouraged to utilize the Albuterol nebulizer treatments every 4-6 hours Awaiting CXR results Pulse ox 95% today in the office Ordered: levofloxacin, 750 mg = 1 tab(s), Oral, q24hr, X 7 day(s), # 7 tab(s), Refills(s) 0, Pharmacy: [facility], 188, cm, 06/24/24 10:52:00 EST, Height/Length Dosing, 118.2, kg, 06/24/24 10:52:00 EST, Weight Dosing XR Chest 2 Views 2. BMI 33.0-33.9,adult (Z68.33: Body mass index [BMI] 33.0-33.9, adult) The standard range for ages 18 and older is >=18.5 and < 25 kg/m2. Your BMI today was above this range, this falls in the overweight to obese category and there are medical benefits to weight loss. We can offer counselling, referral, and/or medical support in addressing this problem. Your BMI and weight management will be followed at subsequent visits. 3. Obesity (BMI 30-39.9) (E66.9: Obesity, unspecified) The standard range for ages 18 and older is >=18.5 and < 25 kg/m2. Your BMI today was above this range, this falls in the overweight to obese category and there are medical benefits to weight loss. We can offer counselling, referral, and/or medical support in addressing this problem. Your BMI and weight management will be followed at subsequent visits. 4. Nonsmoker (Z78.9: Other specified health status) Encouraged to continue as a non-smoker Follow-up No qualifying data available Patient Education Community-Acquired Pneumonia, Adult, [id number] Problem List/Past Medical History Ongoing Arthritis Back pain BMI 33.0-33.9,adult BMI 37.0-37.9, adult BPH with urinary obstruction Chronic prostatitis Class 3 severe obesity due to excess calories in adult COPD without exacerbation Dysphagia GERD (gastroesophageal reflux disease) Hip pain, right History of prostate cancer History of pyelonephritis HLD (hyperlipidemia) Hypertension Idiopathic sleep related nonobstructive alveolar hypoventilation Impotence Incomplete bladder emptying Intermittent self-catheterization of bladder Left varicocele Non-smoker Nonsmoker Obesity (BMI 30-39.9) MARQUITA on CPAP Renal mass RLS (restless legs syndrome) Type 2 diabetes mellitus with hyperlipidemia Historical No qualifying data Procedure/Surgical History TURP - Transurethral resection of prostate (12/21/2021), Colonoscopy (01/10/2021), EGD - Esophagogastroduode (more content not included)... Normal [facility] Comment on above: Result Comment: Elec tronically Signed By: WELLINGTON HOLGUIN CNP\.cameron\Date and Time Signed: 06/24/24 11:16 EST XR Chest 2 Viewson XR Chest 2 Views Exam Date/Time: 06/24/2024 12:03 EST Reason for Exam: Cough;Cough Report IMPRESSION: No acute radiographic abnormality. EXAMINATION: XR Chest 2 Views Clinical History: Cough. Comparison: 10/15/2022. RESULT: No consolidation. No pleural effusion. No pneumothorax. Calcified granuloma right lung base, unchanged. Normal cardiomediastinal silhouette. No acute osseous findings. Ordering Provider: WELLINGTON HOLGUIN FINAL REPORT Dictated: 06/24/2024 12:17 pm Wero Thibodeaux MD. Signed (Electronic Signature): 06/24/2024 12:17 pm Signed by: Wero Thibodeaux MD Transcribed by: BRANDON Technologist: RICHY Technical Comments Radiation Dose: Ka,r in mGy = 0 DAP = 0 Normal [facility] Family Medicine Office/Clini c Noteon 06-01-2024 Family Medicine Office/Clinic Note Family Medicine Office/Clinic Note HPI Staff Milan is a 73 year old male presenting for sick visit Acute: fever, chills, vomiting, BS 210 _Respiratory C/O: Duration: 1 day Body aches: no Chest congestion: yes Chills: yes Cough: yes Ear complaints: no Eye itching/watering: no Fever: yes Headache: no Nasal congestion: yes Nasal discharge: yes clear Poor appetite: yes Reduced activity: yes Sinus pain/pressure: no Sneezing: no Sputum production: yes clear Wheezing: yes Ill contacts: no Remedies tried: nothing_ _ _ History of Present Illness See staff HPI for URI hx. Pt states he is also having issues with swallowing. He cannot swallow solids or liquids as they come up. He states he has not discussed this with us before but this has been going on for a while. Review of Systems PHQ Score Initial Depression Screen Score: 0 SCORE Physical Exam Vitals & Measurements T: 38.9 ???C(Temporal Artery) HR: 80(Peripheral) RR: 20 BP: 132/80 SpO2: 94% HT: 74 in HT: 188 cm WT: 121.0 kg WT: 266.759 lb BMI: 34.23 General: alert, no acute distress, Warm and clamy ENMT: oral mucosa moist, Cardiovascular: regular rate and rhythm, normal peripheral perfusion Respiratory: Lungs CTA, respirations non labored, diminished Extremities: no deformity, no trauma Neurological: oriented x 4, LOC appropriate for age, CN II-XII intact, motor strength equal & normal bilaterally, speech normal Abdomen: Soft, Nontender, Non-distended, + BS Assessment/Plan 1. Dysphagia (R13.10: Dysphagia, unspecified) Will send for EGD. Concerned for the patient since he struggles with both solid and liquids. Ordered: azithromycin, = 1 packet(s), Oral, As Directed, as directed on package labeling, X 5 day(s), # 6 tab(s), Refills(s) 0, [id number], 188, cm, 06/01/24 11:15:00 EST, Height/Length Dosing, 121, kg, 06/01/24 11:15:00 EST, Weight Dosing benzonatate, 200 mg = 1 cap(s), Oral, TID, X 7 day(s), # 21 cap(s), Refills(s) 0, [id number], 188, cm, 06/01/24 11:15:00 EST, Height/Length Dosing, 121, kg, 06/01/24 11:15:00 EST, Weight Dosing methylPREDNISolone, = 1 packet(s), Oral, As Directed, as directed on package labeling, X 6 day(s), # 21 tab(s), Refills(s) 0, [id number], 188, cm, 06/01/24 11:15:00 EST, Height/Length Dosing, 121, kg, 06/01/24 11:15:00 EST, Weight Dosing 2. Acute URI (J06.9: Acute upper respiratory infection, unspecified) Will do a medrol dose pack and Zpack. Pt to take home covid test. Follow up PRN. Precautions discussed in detail. Monitor BS with the steroids. Pt given precautions. Ordered: azithromycin, = 1 packet(s), Oral, As Directed, as directed on package labeling, X 5 day(s), # 6 tab(s), Refills(s) 0, [id number], 188, cm, 06/01/24 11:15:00 EST, Height/Length Dosing, 121, kg, 06/01/24 11:15:00 EST, Weight Dosing benzonatate, 200 mg = 1 cap(s), Oral, TID, X 7 day(s), # 21 cap(s), Refills(s) 0, [id number], 188, cm, 06/01/24 11:15:00 EST, Height/Length Dosing, 121, kg, 06/01/24 11:15:00 EST, Weight Dosing methylPREDNISolone, = 1 packet(s), Oral, As Directed, as directed on package labeling, X 6 day(s), # 21 tab(s), Refills(s) 0, Pharmacy: [facility] #[id number], 188, cm, 06/01/24 11:15:00 EST, Height/Length Dosing, 121, kg, 06/01/24 11:15:00 EST, Weight Dosing 3. BMI 34.0-34.9,adult (Z68.34: Body mass index [BMI] 34.0-34.9, adult) BMI education added Ordered: azithromycin, = 1 packet(s), Oral, As Directed, as directed on package labeling, X 5 day(s), # 6 tab(s), Refills(s) 0, Pharmacy: [facility] #[id number], 188, cm, 06/01/24 11:15:00 EST, Height/Length Dosing, 121, kg, 06/01/24 11:15:00 EST, Weight Dosing benzonatate, 200 mg = 1 cap(s), Oral, TID, X 7 day(s), # 21 cap(s), Refills(s) 0, [id number], 188, cm, 06/01/24 11:15:00 EST, Height/Length Dosing, 121, kg, 06/01/24 11:15:00 EST, Weight Dosing methylPREDNISolone, = 1 packet(s), Oral, As Directed, as directed on package labeling, X 6 day(s), # 21 tab(s), Refills(s) 0, [id number], 188, cm, 06/01/24 11:15:00 EST, Height/Length Dosing, 121, kg, 06/01/24 11:15:00 EST, Weight Dosing 4. Exogenous obesity (E66.09: Other obesity due to excess calories) Diet and exercise advised Ordered: azithromycin, = 1 packet(s), Oral, As Directed, as directed on package labeling, X 5 day(s), # 6 tab(s), Refills(s) 0, Pharmacy: [facility] #[id number], 188, cm, 06/01/24 11:15:00 EST, Height/Length Dosing, 121, kg, 06/01/24 11:15:00 EST, Weight Dosing benzonatate, 200 mg = 1 cap(s), Oral, TID, X 7 day(s), # 21 cap(s), Refills(s) 0, Pharmacy: [facility] #[id number], 188, cm, 06/01/24 11:15:00 EST, Height/Length Dosing, 121, kg, 06/01/24 11:15:00 EST, Weight Dosing methylPREDNISolone, = 1 packet(s), Oral, As Directed, as directed on package labeling, X 6 day(s), # 21 tab(s), Refills(s) 0, Pharmacy: [facility] #[id number], 188, cm, 06/01/24 11:15:00 EST, Height/Length Dosing, 121, kg (more content not included)... Normal [facility] Comment on above: Result Comment: Elec tronically Signed By: Joaquim HCOPRA, Raegan Adler\.br\Date and Time Signed: 06/01/24 11:35 EST Ambulatory Visit Summaryon 1 Ambulatory Visit Summary Ambulatory Visit Summary RABIAMILAN Horowitz :1950 Visit Date:04/15/2024 Ambulatory Visit Instructions Your Diagnosis Hypertension Type 2 diabetes mellitus with hyperlipidemia Exogenous obesity RLS (restless legs syndrome) MARQUITA on CPAP Hip pain, right BMI 34.0-34.9,adult Former smoker Chronic obstructive pulmonary disease, unspecified Your Care Team Attending Physician - Raegan March MD Primary Care Physician - Raegan March MD This Is Your Medications List ropinirole (ropinirole 1 mg Tab) Contact prescribing physician if questions or concerns albuterol (albuterol 0.083% Inh Mary 3 mL) aspirin (aspirin 81 mg Oral EC Tab) atenolol (atenolol 50 mg Tab) atorvastatin (atorvastatin 40 mg Tab) cetirizine (cetirizine 10 mg Tab) cholecalciferol (Vitamin D3 2000 intl units) famotidine (famotidine 20 mg Tab) furosemide (furosemide 20 mg Tab) imipramine (imipramine 50 mg oral tablet) irbesartan (irbesartan 75 mg Tab) metformin (metformin 500 mg Tab) olodaterol-tiotropium (Stiolto Respimat 2.5 mcg-2.5 mcg inhalation aerosol) sulfamethoxazole-trimetho prim (sulfamethoxazole-trimeth oprim 800 mg-160 mg Tab) tamsulosin (tamsulosin 0.4 mg Cap) terazosin (terazosin 2 mg Cap) Procedures Performed TURP - Transurethral resection of prostate (12/21/2021), Colonoscopy (01/10/2021), EGD - Esophagogastroduodenoscop y (01/10/2021), Cystourethroscopy with dilation of urethral stricture (05/07/2017), Brachytherapy (09/19/2016), TURP - Transurethral resection of prostate (04/11/2016), Cystoscopy (04/02/2016), Transrectal biopsy of prostate using ultrasound (US) guidance (07/04/2015), Appendectomy, External beam radiotherapy, Procedure on back. Discharge Vitals Temperature (Temporal Artery) 36.2 ???C Heart Rate (Peripheral) 60 Respiratory Rate 16 Blood Pressure 120/68 Height 188 cm Height 74 in Weight 120.6 kg Weight 265.32 lb BMI 34.12 What to do next Scheduled Follow-Up Appointments Friday 10:15 AM EST With: ALLIE CHOPRA, Jeremy Avery Where: [facility] [address] [place], [place] [id number]- 2024 10:00 AM EDT With: Joaquim CHOPRA, Raegan Adler Where: [address] [id number]- 2024 9:30 AM EDT With: Where: [address] [address]- Medications What How Much When Why Instructions Changed ropinirole (ropinirole 1 mg Tab) 1 Tablets By Mouth 2 times a day Pickup at [facility] #[id number] Unchanged albuterol (albuterol 0.083% Inh Mary 3 mL) 3 Milliliter Nebulized inhalation (aerosol) Every 4 hours Contact prescribing physician if questions or concerns Unchanged aspirin (aspirin 81 mg Oral EC Tab) Contact prescribing physician if questions or concerns Unchanged atenolol (atenolol 50 mg Tab) 1 Tablets By Mouth 2 times a day Contact prescribing physician if questions or concerns Unchanged atorvastatin (atorvastatin 40 mg Tab) 1 Tablets By Mouth Every day Contact prescribing physician if questions or concerns Unchanged cetirizine (cetirizine 10 mg Tab) 1 Tablets By Mouth Every day Sinusitis COPD without exacerbation Type 2 diabetes mellitus without complication, without long-term current use of insulin BMI 34.0-34.9,adult Class 1 obesity due to excess calories in adult Former smoker Contact prescribing physician if questions or concerns Unchanged cholecalciferol (Vitamin D3 2000 intl units) Contact prescribing physician if questions or concerns Unchanged famotidine (famotidine 20 mg Tab) 1 Tablets Contact prescribing physician if questions or concerns Unchanged furosemide (furosemide 20 mg Tab) See instructions TAKE 1 TABLET BY MOUTH TWICE A DAY Contact prescribing physician if questions or concerns Unchanged imipramine (imipramine 50 mg oral tablet) See instructions TAKE 1 TABLET TWICE DAILY Contact prescribing physician if questions or concerns Unchanged irbesartan (irbesartan 75 mg Tab) 1 Tablets By Mouth Every day Contact prescribing physician if questions or concerns Unchanged metformin (metformin 500 mg Tab) 1 Tablets By Mouth 2 times a day Contact prescribing physician if questions or concerns Unchanged olodaterol-tiotropium (Stiolto Respimat 2.5 mcg-2.5 mcg inhalation aerosol) See instructions INHALE 2 PUFFS EVERY 24 HOURS Contact prescribing physician if questions or concerns Unchanged sulfamethoxazole-trimetho prim (sulfamethoxazole-trimeth oprim 800 mg-160 mg Tab) 1 Tablets By Mouth Every other day Duration: 90 Days TAKE 1 TABLET BY MOUTH EVERY OTHER DAY Contact prescribing physician if questions or concerns Unchanged tamsulosin (tamsulosin 0.4 mg Cap) 1 Capsules By Mouth Every day Contact prescribing physician if questions or concerns Unchanged terazosin (terazosin (more content not included)... Normal [facility] CHEMISTRYOrdered By: SYSTEM SYSTEM on 04-15-2024 Albumin DL <= 20 mg/L (U) [Mass/Vol] 10.4 mg/dL High 0.0 - 1.9 mg/dL Remisol Chem Family Medicine Office/Clini c Noteon 04-15-2024 Family Medicine Office/Clinic Note Family Medicine Office/Clinic Note Chief Complaint Patient presents for medication changes and pre-operative care related to hip surgery. HPI Staff Milan is a 73 year old male presenting for 3 month follow up DM, HTN Do you have any of the following symptoms? Foot Exam: within a year Eye Exam: UTD Last A1C: Hgb A1C %: 5.2 % (06/09/23 14:28:00) Hgb A1c POC: 5.1 % (09/11/23 08:29:00) Statin: atorvastatin 40mg Patient is here for follow up on hypertension. How often are you checking your blood pressure? occasionally if only doesn't feel right What are your average readings? _ Yearly BMP: 11/28/23 questions/concerns: would like to get the ropinirole back up to 1mg a day, he didn't know it was cut down to 1/2 mg and it's not effective Going to have hip surgery ( right replacement) coming up History of Present Illness The patient is a 73-year-old male presenting for medication management and preparation for an upcoming hip surgery on his right hip. The patient has a history of right hip pain, identified several months ago, that has progressively worsened. He is preparing for a surgical intervention soon, although the specific date and location of the surgery are still unconfirmed. The patient has chronic obstructive pulmonary disease (COPD) managed under the care of a digital content marketing manager, Dr. Baez, with a follow-up visit scheduled for the coming week. The patient maintains regular medication use, including Lasix taken twice daily, and reports stable management of his COPD symptoms. Moreover, he has a history of obstructive sleep apnea for which he uses CPAP therapy. The patient discussed issues with restless legs syndrome (RLS), for which his ropinirole dosage was altered recently, causing some confusion about whether it should be maintained at 0.1 mg or adjusted again. Furthermore, their Bactrim usage was modified to every other day under the advice of a urology office for urinary tract infection prevention. His type 2 diabetes mellitus with hyperlipidemia has been reported to be stable, with blood sugar readings within normal limits. He mentions having had recent laboratory work administered outside, but results were not communicated back. He prefers keeping his testing in-house for better tracking and speedy access to results. Additionally, the patient has a history of exogenous obesity and essential hypertension, both of which are being monitored and managed with consistent oral medications. Social and family history includes a note that he is a former smoker. Review of Systems PHQ Score Initial Depression Screen Score: 4 SCORE Detailed Depression Screen Score: 4 Total Depression Screen Score: 8 - Cardiovascular: Denies issues aside from known hypertension. - Respiratory: Reports stable COPD with current medication regimen. - Neurological: Reports changes in medication management for restless legs syndrome. Physical Exam Vitals & Measurements T: 36.2 ???C(Temporal Artery) HR: 60(Peripheral) RR: 16 BP: 120/68 SpO2: 98% HT: 74 in HT: 188 cm WT: 120.6 kg WT: 265.32 lb BMI: 34.12 General: alert, no acute distress ENMT: oral mucosa moist Cardiovascular: Regular rate and rhythm, normal peripheral perfusion Respiratory: Lungs clear to auscultation, respirations non labored Extremities: no deformity, no trauma Neurological: oriented x 4, level of consciousness appropriate for age, CN II-XII intact, motor strength equal & normal bilaterally, speech normal Abdomen: Soft, Non-tender, Non-distended, + Bowel sounds Assessment/Plan 1. Hypertension (I10: Essential (primary) hypertension) Continue current antihypertensive regimen. Monitor blood pressure regularly. Ordered: A1c POC 97080 Body Mass Index (BMI) documented 3008F Current tobacco non-user 1036F Depression Screening Negative 3352F Most recent diastolic blood pressure <80 mm Hg 3078F Patient screen for fall risk: no falls in last year or 1 fall with no injury in last year 1101F Systolic BP <130 mm Hg (Most Recent) 3074F 2. Type 2 diabetes mellitus with hyperlipidemia (E11.69: Type 2 diabetes mellitus with other specified complication) Blood sugar levels stable. Ensure laboratory testing (A1c) and continue lipid management. Review diet and exercise protocol. Ordered: A1c POC 77620 Body Mass Index (BMI) documented 3008F Current tobacco non-user 1036F Depression Screening Negative 3352F Most recent diastolic blood pressure <80 mm Hg 3078F Patient screen for fall risk: no falls in last year or 1 fall with no injury in last year 1101F Systolic BP <130 mm Hg (Most Recent) 3074F 3. Exogenous obesity (E66.09: Other obesity due to excess calories) Maintain regular lifestyle modification counseling. Encourage dietary adjustments and physical activity enhancements. Ordered: A1c POC 00806 Body Mass Index (BMI) documented 3008F Current tobacco non-user 1036F Depression Screening Negative 3352F Most recent diastolic blood pressure <80 mm H (more content not included)... Normal [facility] Comment on above: Result Comment: Elec tronically Signed By: Raegan March MD\.br\Date and Time Signed: 04/15/24 11:40 EDT [facility] 04-15-2024 Albumin DL <= 20 mg/L (U) [Mass/Vol] 10.4 mg/dL High 0.0-1.9 [facility] Comment on above: Performed By: #### 1 [id number] #### [facility] [address] [place] [address] XR Hip - right 3 [facility] Result: March 01, 2024 x-rays AP pelvis and lateral of the right hip demonstrate [id number] in the right hip joint as well as marked narrowing of the left hip joint. Subchondral sclerosis subchondral cyst and osteophyte formation is noted on the right side. Impressions advanced osteoarthritis of the right hip an incidental finding of osteoarthritis of the left hip Omar Ramirez D.O. [facility] Study observation (narrative) [facility] XR Hip - right 3 ViewsOrdere d By: Molly Ramirez on 03-01-2024 [facility] Work Phone: Ambulatory Visit Summaryon 0 01-29-2024 Ambulatory Visit Summary Ambulatory Visit Summary MILAN CAMARILLO :1950 Visit Date:01/29/2024 Ambulatory Visit Instructions Your Diagnosis Chronic prostatitis History of prostate cancer BPH with urinary obstruction Incomplete bladder emptying Your Care Team Attending Physician - ANNABELLE HATFIELD PA-C Primary Care Physician - Raegan March MD This Is Your Medications List sulfamethoxazole-trimetho prim (sulfamethoxazole-trimeth oprim 800 mg-160 mg Tab) Contact prescribing physician if questions or concerns albuterol (albuterol 0.083% Inh Mary 3 mL) aspirin (aspirin 81 mg Oral EC Tab) atenolol (atenolol 50 mg Tab) atorvastatin (atorvastatin 40 mg Tab) benzonatate (benzonatate 100 mg Cap) cetirizine (cetirizine 10 mg Tab) cholecalciferol (Vitamin D3 2000 intl units) famotidine (famotidine 20 mg Tab) furosemide (furosemide 20 mg Tab) imipramine (imipramine 50 mg oral tablet) irbesartan (irbesartan 75 mg Tab) metformin (metformin 500 mg Tab) olodaterol-tiotropium (Stiolto Respimat 2.5 mcg-2.5 mcg inhalation aerosol) ropinirole (ropinirole 1 mg Tab) tamsulosin (tamsulosin 0.4 mg Cap) terazosin (terazosin 2 mg Cap) Procedures Performed TURP - Transurethral resection of prostate (12/21/2021), Colonoscopy (01/10/2021), EGD - Esophagogastroduodenoscop y (01/10/2021), Cystourethroscopy with dilation of urethral stricture (05/07/2017), Brachytherapy (09/19/2016), TURP - Transurethral resection of prostate (04/11/2016), Cystoscopy (04/02/2016), Transrectal biopsy of prostate using ultrasound (US) guidance (07/04/2015), Appendectomy, External beam radiotherapy, Procedure on back. Discharge Vitals Heart Rate (Peripheral) 74 Respiratory Rate 16 Blood Pressure 132/80 Height 188 cm Height 74 in Weight 123 kg Weight 270.6 lb BMI 34.8 What to do next Scheduled Follow-Up Appointments 2023 10:15 AM EDT With: Joaquim CHOPRA, Raegan Adler Where: [place] [id number]- Friday 10:15 AM EST With: ALLIE CHOPRA, Jeremy Avery Where: [facility] [address] [place], [place] [id number]- 2024 9:30 AM EDT With: Where: [address] [address]- You Need to Schedule the Following Appointments Follow Up with SOFIA SERVIN, [place] When: Comments: 6 mos f/up Where: [address] [place] [address] Medications What How Much When Why Instructions Changed sulfamethoxazole-trimetho prim (sulfamethoxazole-trimeth oprim 800 mg-160 mg Tab) 1 Tablets By Mouth Every other day Duration: 90 Days TAKE 1 TABLET BY MOUTH EVERY OTHER DAY Pickup at [facility]/pharmacy #[id number] Unchanged albuterol (albuterol 0.083% Inh Mary 3 mL) 3 Milliliter Nebulized inhalation (aerosol) Every 4 hours Contact prescribing physician if questions or concerns Unchanged aspirin (aspirin 81 mg Oral EC Tab) Contact prescribing physician if questions or concerns Unchanged atenolol (atenolol 50 mg Tab) 1 Tablets By Mouth 2 times a day Contact prescribing physician if questions or concerns Unchanged atorvastatin (atorvastatin 40 mg Tab) 1 Tablets By Mouth Every day Contact prescribing physician if questions or concerns Unchanged benzonatate (benzonatate 100 mg Cap) See instructions TAKE 1 CAPSULE THREE TIMES DAILY X 7 DAYS Contact prescribing physician if questions or concerns Unchanged cetirizine (cetirizine 10 mg Tab) 1 Tablets By Mouth Every day Sinusitis COPD without exacerbation Type 2 diabetes mellitus without complication, without long-term current use of insulin BMI 34.0-34.9,adult Class 1 obesity due to excess calories in adult Former smoker Contact prescribing physician if questions or concerns Unchanged cholecalciferol (Vitamin D3 2000 intl units) Contact prescribing physician if questions or concerns Unchanged famotidine (famotidine 20 mg Tab) 1 Tablets Contact prescribing physician if questions or concerns Unchanged furosemide (furosemide 20 mg Tab) See instructions TAKE 1 TABLET BY MOUTH TWICE A DAY Contact prescribing physician if questions or concerns Unchanged imipramine (imipramine 50 mg oral tablet) See instructions TAKE 1 TABLET TWICE DAILY Contact prescribing physician if questions or concerns Unchanged irbesartan (irbesartan 75 mg Tab) 1 Tablets By Mouth Every day Contact prescribing physician if questions or concerns Unchanged metformin (metformin 500 mg Tab) 1 Tablets By Mouth 2 times a day Contact prescribing physician if questions or concerns Unchanged olodaterol-tiotropium (Stiolto Respimat 2.5 mcg-2.5 mcg inhalation aerosol) See instructions INHALE 2 PUFFS EVERY 24 HOURS Contact prescribing physician if questions or concerns Unchanged ropinirole (ropinirole 1 mg Tab) 1 Tablets By Patricia (more content not included)... Normal [facility] Urology Office/Clinic Noteon 01-29-2024 Urology Office/Clinic Note Urology Office/Clinic Note Chief Complaint 4m PSA HPI Staff 4m PSA DX: Hx of Prostate Cancer, BPH, Incomplete Bladder Emptying & Chronic Prostatitis *Tamsulosin 0.4 mg bid and Terazosin 2 mg qd. Tx'd w/Bactrim DS for 3m at time of last encounter. Pt states he still taking the Bactrim. CIC 2x/day. Denies any difficulty. PSA Scrn Tot.: <0.1 Low (11/28/23 15:58:00) Pt unable to provide urine specimen. Denies pain/burning and visible blood in urine. No concerns at this time. History of Present Illness Tests reviewed: reviewed UA and PSAs. I have reviewed the previous health record information and history for this patient from Dr. Kelley. I have reviewed and verified the staff HPI to be accurate for this encounter. Review of Systems PHQ Score Initial Depression Screen Score: 0 SCORE no fever, chills, malaise, myalgia. no rash/lesions. no chest pain, palpitations, or SOB. no abdominal pain, nausea, vomiting. no unilateral calf swelling, redness, pain Physical Exam Vitals & Measurements HR: 74(Peripheral) RR: 16 BP: 132/80 HT: 74 in HT: 188 cm WT: 123 kg WT: 270.6 lb BMI: 34.8 General: nontoxic, NAD Mouth: moist mucosa Lungs: normal respiratory effort Cardio: regular rate, good distal perfusion Abdomen: nondistended, no suprapubic distention or tenderness, no CVA tenderness Neurologic: Grossly normal Skin: No rashes or suspicious lesions Assessment/Plan Pt unable to provide urine sample today. No urinary complaints today. 1. Chronic prostatitis (N41.1: Chronic prostatitis) Pt was started on daily suppressive Bactrim as last ov after reporting about 6 infections prior. Has been doing really well on this regimen. ZERO UTIs/UTI sx in the last 4 mos. No issues w CIC. Discussed risks/benefits of current reigmen. Pt willing to try decreasing suppressive regimen to QOD. If gets breakthrough infections, will contact office and we will consider going back to daily. -reassess in 6 mos 2. History of prostate cancer (Z85.46: Personal history of malignant neoplasm of prostate) PSA: 08/26/22 - <0.13 10/15/22 - <0.1 11/28/23 - <0.1 TRUS/bx 07/04/15. EBRT and brachytherapy 2016. PSA remains low and undetectable. Will continue to monitor yearly. -Recheck PSA yearly. Due again next summer. Not ordered today. 3. BPH with urinary obstruction (N40.1: Benign prostatic hyperplasia with lower urinary tract symptoms) S/p TURP 12/21/21 at [facility] by Dr. Ram - Path showed BPH and radiation effect. Small focus of atypical glands with radiation effect. Pt taking Tamsulosin 0.4 mg bid and Terazosin 2 mg qd says this works well. Does not wish to change anything at this time. 4. Incomplete bladder emptying (R33.9: Retention of urine, unspecified) PVR (cc): 12/09/22 - >999 12/09/22 - 746 repeat after end void 03/17/23 - 750 no PVR IO today - no scanner available Continues to CIC 2-3x/day with no difficulties, still is able to void on his own between CIC. No urinary complaints. Orders: sulfamethoxazole-trimetho prim, 1 tab(s), Oral, Every other day for 90 day(s), 45 tab(s), Refill(s) 1, TAKE 1 TABLET BY MOUTH EVERY OTHER DAY, [facility]/pharmacy #[id number], 188, cm, 01/29/24 10:25:00 EDT, Height/Length Dosing, 123, kg, 01/29/24 10:25:00 EDT, Weight Dosing Follow-up With When Contact Information ANNABELLE HATFIELD PA-C, URL [id number] [place] [address] Additional Instructions: 6 mos f/up Patient Education Benign Prostatic Hyperplasia Prostatitis Documentation recorded by the scribe Claudine Cason accurately reflects the services(s) I performed and decisions made by me. Authenticated by Annabelle Hatfield PA-C on 01/29/2024 11:12:48. IClaudine, personally scribed for Annabelle Hatfield PA-C on 01/29/2024 10:53:53. . Problem List/Past Medical History Ongoing Arthritis Back pain BMI 37.0-37.9, adult BPH with urinary obstruction Chronic prostatitis Chronic respiratory failure due to obstructive sleep apnea Class 3 severe obesity due to excess calories in adult COPD without exacerbation GERD (gastroesophageal reflux disease) History of prostate cancer History of pyelonephritis HLD (hyperlipidemia) Hypertension Idiopathic sleep related nonobstructive alveolar hypoventilation Impotence Incomplete bladder emptying Intermittent self-catheterization of bladder Left varicocele Non-smoker MARQUITA on CPAP Renal mass RLS (restless legs syndrome) Sinusitis Type 2 diabetes mellitus with hyperlipidemia Historical No qualifying data Procedure/Surgical History TURP - Transurethral resection of prostate (12/21/2021), Colonoscopy (01/10/2021), EGD - Esophagogastroduodenoscop y (01/10/2021), Cystourethroscopy with dilation of urethral stricture (05/07/2017), Brachytherapy (09/19/2016), TURP - Transurethral resection of prostate (04/11/2016), Cystoscopy (04/02/2016), Transrectal biopsy of prosta (more content not included)... Normal [facility] Comment on above: Result Comment: Elec tronically Signed By: ANNABELLE HATFIELD PA-C\.br\Date and Time Signed: 01/29/24 11:12 EDT\.br\Electronically Co-Signed By: Claudine Cason\.br\Date and Time Co-Signed: 01/29/24 10:54 EDT Family Medicine Office/Clini c Noteon 01-15-2024 Family Medicine Office/Clinic Note Family Medicine Office/Clinic Note HPI Staff Milan is a 73 year old male presenting for one month follow up DM Do you have any of the following symptoms? Foot Exam: none Eye Exam: UTD Last A1C: Hgb A1C %: 5.2 % (06/09/23 14:28:00) Hgb A1c POC: 5.1 % (09/11/23 08:29:00) Statin: atorvastatin 40mg questions/concerns: none History of Present Illness - See staff HPI. Review of Systems PHQ Score Initial Depression Screen Score: 0 SCORE Physical Exam Vitals & Measurements T: 36.2 ?C(Temporal Artery) HR: 62(Peripheral) RR: 20 BP: 118/72 SpO2: 94% HT: 74 in HT: 189 cm WT: 121.4 kg WT: 267.08 lb BMI: 33.99 General: alert, no acute distress ENMT: oral mucosa moist, Cardiovascular: regular rate and rhythm, normal peripheral perfusion Respiratory: Lungs CTA, respirations non labored, Diminished but clear. Extremities: no deformity, no trauma Neurological: oriented x 4, LOC appropriate for age, CN II-XII intact, motor strength equal & normal bilaterally, speech normal Abdomen: Soft, Nontender, Non-distended, + BS Assessment/Plan 1. Type 2 diabetes mellitus with hyperlipidemia (E11.69: Type 2 diabetes mellitus with other specified complication) - Will remove meds at this time. - Glipizide will start - 3 month recheck on A1c Ordered: Body Mass Index (BMI) documented 3008F Current tobacco non-user 1036F Depression Screening Negative 3352F Influenza immunization administered or previously received 4274F Most recent diastolic blood pressure <80 mm Hg 3078F Patient screen for fall risk: no falls in last year or 1 fall with no injury in last year 1101F Systolic BP <130 mm Hg (Most Recent) 3074F 2. COPD without exacerbation (J44.9: Chronic obstructive pulmonary disease, unspecified) - Pt needs to follow up with Pulm. - Pt does not believe he has. - Established patient of Dr. Baez's 3. MARQUITA on CPAP (G47.33: Obstructive sleep apnea (adult) (pediatric)) - Using CPAP regularly and it helps him with his syptoms. 4. Primary hypertension (I10: Essential (primary) hypertension) - At goal. - Follow up PRN Ordered: Body Mass Index (BMI) documented 3008F Current tobacco non-user 1036F Depression Screening Negative 3352F Influenza immunization administered or previously received 4274F Most recent diastolic blood pressure <80 mm Hg 3078F Patient screen for fall risk: no falls in last year or 1 fall with no injury in last year 1101F Systolic BP <130 mm Hg (Most Recent) 3074F 5. BMI 33.0-33.9,adult (Z68.33: Body mass index [BMI] 33.0-33.9, adult) - BMI education added Ordered: Body Mass Index (BMI) documented 3008F Current tobacco non-user 1036F Depression Screening Negative 3352F Influenza immunization administered or previously received 4274F Most recent diastolic blood pressure <80 mm Hg 3078F Patient screen for fall risk: no falls in last year or 1 fall with no injury in last year 1101F Systolic BP <130 mm Hg (Most Recent) 3074F 6. Class 1 obesity due to excess calories in adult (E66.09: Other obesity due to excess calories) - Diet and exercise advised Ordered: Body Mass Index (BMI) documented 3008F Current tobacco non-user 1036F Depression Screening Negative 3352F Influenza immunization administered or previously received 4274F Most recent diastolic blood pressure <80 mm Hg 3078F Patient screen for fall risk: no falls in last year or 1 fall with no injury in last year 1101F Systolic BP <130 mm Hg (Most Recent) 3074F 7. Former smoker (Z87.891: Personal history of nicotine dependence) - Please continue to not smoke Ordered: Body Mass Index (BMI) documented 3008F Current tobacco non-user 1036F Depression Screening Negative 3352F Influenza immunization administered or previously received 4274F Most recent diastolic blood pressure <80 mm Hg 3078F Patient screen for fall risk: no falls in last year or 1 fall with no injury in last year 1101F Systolic BP <130 mm Hg (Most Recent) 3074F Follow-up No qualifying data available Patient Education BMI for Adults Problem List/Past Medical History Ongoing Arthritis Back pain BMI 37.0-37.9, adult BPH with urinary obstruction Chronic prostatitis Chronic respiratory failure due to obstructive sleep apnea Class 3 severe obesity due to excess calories in adult COPD without exacerbation GERD (gastroesophageal reflux disease) History of prostate cancer History of pyelonephritis HLD (hyperlipidemia) Hypertension Idiopathic sleep related nonobstructive alveolar hypoventilation Impotence Incomplete bladder emptying Intermittent self-catheterization of bladder Left varicocele Non-smoker MARQUITA on CPAP Renal mass RLS (restless legs syndrome) Sinusitis Type 2 diabetes mellitus with hyperlipidemia Historical No qualifying data Procedure/Surgical History TURP - Transurethral resection of prostate (12/21/2021), Colonoscopy (01/10/2021), EGD - Esophagogastroduodenoscop (more content not included)... Normal [facility] Comment on above: Result Comment: Elec tronically Signed By: Joaquim CHOPRA, Raegan Parker.br\Date and Time Signed: 01/15/24 09:47 EDT Family Medicine Office/Clini c Noteon 12-30-2023 Family Medicine Office/Clinic Note Family Medicine Office/Clinic Note HPI Staff Milan is a 73 year old male presenting with cough, congestion Onset: Stated a couple weeks ago just getting worse Location: cough congestion Duration: Characteristics:_cough, and congestion Aggravated by: Relieved by: OTC- Cough syrup did seem to help a little bit Timing:best in the morning Associated Symptoms:_ fever 4 days ago, went away when had Tylenol , clear fluid when he coughs History of Present Illness 73 [address] old patient of Dr[address] March presents today for an acute visit for cough and congestion. He has a hx of COPD and reports his ex- tested positive for COVID last Friday. He states he had a fever over the weekend and he did not test for COVID. Patient declines testing today for COVID. He reports he does not have a fever today and he has been using OTC Coricidin HBP for the congestion and cough. He denies shortness of breath and wheezing. He is afebrile today in the office. Review of Systems PHQ Score Initial Depression Screen Score: 0 SCORE Constitutional: no fever, no chills, no sweats, no weakness Skin: no Jaundice, no rash, no lesions, nopetechiae ENMT: no ear pain, no sore throat, no congestion, no hoarseness Respiratory: no shortness of breath, no cough, no orthopnea, no wheezing Cardiovascular: no chest pain, no palpitations, no edema Neurologic: no headache, no dizziness, no numbness, no weakness Psychiatric: no sleeping problems, no irritability, no mood swings/depression. Additional ROS info: Except as noted in the above Review of Systems and in the History of Present Illness all other systems have been reviewed and are negative or noncontributory. Physical Exam Vitals & Measurements T: 36.6 ?C(Temporal Artery) HR: 74(Peripheral) RR: 20 BP: 138/84 SpO2: 94% HT: 74 in HT: 189.0 cm WT: 119.5 kg WT: 262.9 lb BMI: 33.45 General: alert, no acute distress ENMT: TM's clear, oral mucosa moist, no pharyngeal erythema or exudate Cardiovascular: regular rate and rhythm, normal peripheral perfusion Respiratory: Lungs CTA, respirations non labored Extremities: no deformity, no trauma Neurological: oriented x 4, LOC appropriate for age speech normal Assessment/Plan 1. Cough (R05.9: Cough, unspecified) Discussed with patient cough is a symptom and may be due to viral infection or COPD Start benzonatate 100 mg one tablet po TID prn Encouraged to continue with prescribed inhalers Patient to contact provider on Friday if no improvement or condition worsens. Ordered: benzonatate, 100 mg = 1 cap(s), Oral, TID, X 7 day(s), # 21 cap(s), Refills(s) 0, Pharmacy: [facility], 189, cm, 12/30/23 8:52:00 EDT, Height/Length Dosing, 119.5, kg, 12/30/23 8:52:00 EDT, Weight Dosing 2. COPD without exacerbation (J44.9: Chronic obstructive pulmonary disease, unspecified) Discussed with patient diagnosis of COPD and how cough can be a symptom Encouraged to continue to follow with Dr. Baez, pulmonology Continue with Stiolto & albuterol as ordered Encouraged to f/u as needed 3. Former smoker (Z87.891: Personal history of nicotine dependence) Encouraged to continue as a non-smoker Ordered: Body Mass Index (BMI) documented 3008F Current tobacco non-user 1036F Depression Screening Negative 3352F Discharge medications reconciled with current medications in outpatient record 1111F Influenza immunization status assessed 1030F Most recent diastolic blood pressure 80-89 mm Hg 3079F Patient screen for fall risk: no falls in last year or 1 fall with no injury in last year 1101F Systolic BP <130 mm Hg (Most Recent) 3074F 4. BMI 33.0-33.9,adult (Z68.33: Body mass index [BMI] 33.0-33.9, adult) The standard range for ages 18 and older is >=18.5 and < 25 kg/m2. Your BMI today was above this range, this falls in the overweight to obese category and there are medical benefits to weight loss. We can offer counselling, referral, and/or medical support in addressing this problem. Your BMI and weight management will be followed at subsequent visits. Ordered: Body Mass Index (BMI) documented 3008F Current tobacco non-user 1036F Depression Screening Negative 3352F Discharge medications reconciled with current medications in outpatient record 1111F Influenza immunization status assessed 1030F Most recent diastolic blood pressure 80-89 mm Hg 3079F Patient screen for fall risk: no falls in last year or 1 fall with no injury in last year 1101F Systolic BP <130 mm Hg (Most Recent) 3074F Follow-up No qualifying data available Patient Education Cough, Adult, [id number] Problem List/Past Medical History Ongoing Arthritis Back pain BMI 37.0-37.9, adult BPH with urinary obstruction Chronic prostatitis Chronic respiratory failure due to obstructive sleep apnea Class 3 severe obesity due to excess calories in adult COPD without exacerbation GERD (gastroesophageal reflux disease) History of prostate cancer History (more content not included)... Normal [facility] Comment on above: Result Comment: Elec tronically Signed By: WELLINGTON HOLGUIN CNP\.br\Date and Time Signed: 12/30/23 09:35 EDT Family Medicine Office/Clini c Noteon 12-18-2023 Family Medicine Office/Clinic Note Family Medicine Office/Clinic Note HPI Staff Milan is a 73 year old male presenting for 3 month follow up DM, COPD Do you have any of the following symptoms? Foot Exam: Eye Exam: 2mths ago Last A1C: 06-09-23 5.2 Hgb A1C %: 5.2 % (06/09/23 14:28:00) Hgb A1c POC: 5.1 % (09/11/23 08:29:00) Statin: Patient is here for follow up on COPD: Feeling controlled on medication: using the inhaler more often then before. Need medication refilled: NO Do you use O2? yes 3liters at [facility] History of Present Illness - Here for follow up. - Feels his COPD is not well controlled. - Using inhalers more often - Using O2 with his CPAP. Review of Systems PHQ Score Initial Depression Screen Score: 0 SCORE Physical Exam Vitals & Measurements T: 35.8 ?C(Temporal Artery) HR: 64(Peripheral) RR: 20 BP: 122/60 SpO2: 92% HT: 74 in HT: 189 cm WT: 122.6 kg WT: 269.72 lb BMI: 34.32 General: alert, no acute distress ENMT: oral mucosa moist, Cardiovascular: regular rate and rhythm, normal peripheral perfusion Respiratory: Lungs CTA, respirations non labored, Diminished Extremities: no deformity, no trauma Neurological: oriented x 4, LOC appropriate for age, CN II-XII intact, motor strength equal & normal bilaterally, speech normal Abdomen: Soft, Nontender, Non-distended, + BS Assessment/Plan 1. Idiopathic sleep related nonobstructive alveolar hypoventilation (G47.34: Idiopathic sleep related nonobstructive alveolar hypoventilation) - Continue with CPAP - 3L NC - Continue as before Ordered: [facility] External Ambulatory Referral 2. Type 2 diabetes mellitus with hyperlipidemia (E11.69: Type 2 diabetes mellitus with other specified complication) - Well controlled. - NO need for A1c today. Ordered: [facility] External Ambulatory Referral 3. COPD without exacerbation (J44.9: Chronic obstructive pulmonary disease, unspecified) - Will give a steroid to see if this is an acute exacerbation. - We will send to Dr. Baez for further work up. Ordered: [facility] External Ambulatory Referral 4. HLD (hyperlipidemia) (E78.5: Hyperlipidemia, unspecified) - Continue on a statin Ordered: [facility] External Ambulatory Referral 5. MARQUITA on CPAP (G47.33: Obstructive sleep apnea (adult) (pediatric)) - Continue using a CPAP Ordered: [facility] External Ambulatory Referral 6. BMI 34.0-34.9,adult (Z68.34: Body mass index [BMI] 34.0-34.9, adult) - BMI education added 7. RLS (restless legs syndrome) (G25.81: Restless legs syndrome) - Will increase and follow up in 1 month 8. Former smoker (Z87.891: Personal history of nicotine dependence) - Please continue to not smoke. 9. Chronic respiratory failure due to obstructive sleep apnea (J96.10: Chronic respiratory failure, unspecified whether with hypoxia or hypercapnia) - Pt continues to use O2 at night with his CPAP. Orders: methylPREDNISolone, = 1 packet(s), Oral, As Directed, as directed on package labeling, X 6 day(s), # 21 tab(s), Refills(s) 0, Pharmacy: [facility] [facility], 189, cm, 12/18/23 9:00:00 EDT, Height/Length Dosing, 122.6, kg, 12/18/23 9:00:00 EDT, Weight Dosing ropinirole, 1 mg = 1 tab(s), Oral, BID, # 180 tab(s), Refills(s) 0, Pharmacy: [facility], 189, cm, 12/18/23 9:00:00 EDT, Height/Length Dosing, 122.6, kg, 12/18/23 9:00:00 EDT, Weight Dosing Follow-up No qualifying data available Problem List/Past Medical History Ongoing Arthritis Back pain BMI 37.0-37.9, adult BPH with urinary obstruction Chronic prostatitis Chronic respiratory failure due to obstructive sleep apnea Class 3 severe obesity due to excess calories in adult COPD without exacerbation GERD (gastroesophageal reflux disease) History of prostate cancer History of pyelonephritis HLD (hyperlipidemia) Hypertension Idiopathic sleep related nonobstructive alveolar hypoventilation Impotence Incomplete bladder emptying Intermittent self-catheterization of bladder Left varicocele Non-smoker MARQUITA on CPAP Renal mass RLS (restless legs syndrome) Sinusitis Type 2 diabetes mellitus with hyperlipidemia Historical No qualifying data Procedure/Surgical History TURP - Transurethral resection of prostate (12/21/2021), Colonoscopy (01/10/2021), EGD - Esophagogastroduodenoscop y (01/10/2021), Cystourethroscopy with dilation of urethral stricture [...] mg= 1 tab(s), Oral, Daily, 3 refills Bactrim D.S. 80 (more content not included)... Normal [facility] Comment on above: Result Comment: Elec tronically Signed By: Raegan March MD\.br\Date and Time Signed: 12/18/23 09:21 EDT Pre-Visit Planningon 2 024 Pre-Visit Planning Pre-Visit Planning From: Yana Marie To: Raegan March MD; Sent: 12/17/2023 14:56:04 EDT Subject: Pre-Visit Planning Due Date/Time: 12/17/2023 14:55:00 EDT Caller Name: MILAN CAMARILLO; Caller Number: H , M Co Dr. March. During a pre-visit planning chart review, I noted the following documentation in the medical record: Current Problem List: COPD, MARQUITA on CPAP, Idiopathic sleep related nonobstructive alveolar hypoventilation, and Class 3 severe obesity. Current Medication List: albuterol and olodaterol-tiotropium. 12/16/2023 Sleep Lab Consult Note (page 1 and 4): Based on your medical judgment, can you please clarify if any of the following conditions/complications are present? I can update the Chronic Problem List with your response if you would like. -Chronic respiratory failure with hypoxia -Chronic respiratory failure due to obstructive sleep apnea -Other (please specify): In responding to this request, please exercise your independent professional judgment. The fact that a question is asked does not imply that any particular answer is desired or expected. If you have any questions, please feel free to contact me at extension [phone]. Thank you! Yana Marie LPN From: Raegan March MD To: Yana Marie; Sent: 12/18/2023 08:42:19 EDT Subject: RE: Pre-Visit Planning Caller Name: MILAN CAMARILLO; Caller Number: H , M -Chronic respiratory failure due to obstructive sleep apnea Please add Normal [address] [place] [address] Consultation Noteon 12-04-19 24 Consultation Note [id number] Normal [facility] Family Medicine Office/Clini c Noteon 12-04-2023 Family Medicine Office/Clinic Note Chief Complaint Medicare Wellness Visit Subsequent History of Present Illness Covid-19, MERS, Ebola Screen *Contact With Person [...] Airborne, Droplet Precautions for MERS/COVID-19 : N/A Carley Andujar LPN - 11/25/2023 9:23 EDT Medicare/Medicaid Summary Systolic Blood Pressure : 120 mmHg Diastolic Blood Pressure : 62 mmHg Peripheral Pulse Rate : 57 bpm (LOW) Respiratory Rate : 20 br/min SpO2 : 94 % Carley Andujar LPN - 11/25/2023 10:06 EDT Height/Length Measured : 182 cm(Converted to: 6 ft 0 in, 71.65 in) Weight Measured : 124.9 kg(Converted to: 275 lb 6 Ounces, 275.357 lb) Body Mass Index Measured : 37.71 kg/m2 Height in Inches : 72 in Weight in Pounds : 274.78 lb Numeric Rating Pain Scale : 6 Primary Pain Location : Back Numeric Rating Pain Score : 6 Carley Andujar LPN - 11/25/2023 9:35 EDT Chief Complaint : Medicare Wellness Visit Subsequent Carley Andujar LPN - 11/25/2023 10:06 EDT Patient Counseled : Nutrition, Physical activity, Elevated BMI Blood Pressure Location : Right arm Blood Pressure Position : Sitting O2 Sat Resting/Exertion Alpha : Resting Carley Andujar LPN - 11/25/2023 9:23 EDT Pain Present : Yes actual or suspected pain Carley Andujar LPN 11/25/2023 9:35 EDT Patient Preferred Method of Communication No Preference Hearing and Vision Screening FT FT Whisper Test Comments : Wears hearing aids. Vision Screen Comments : Wears corrective lenses for readins, sees [facility] for diabetic eye exams yearly. Carley Andujar LPN Rosario - 11/25/2023 9:35 EDT Advance Directive FT Patient Wishes to Receive Further Information on Advance Directives : No Organ Donation Consent : Yes Carley Andujar LPN - 11/25/2023 9:35 EDT Advance Directive : No Carley Andujar LPN - 11/25/2023 9:23 EDT Procedures / Surgeries FT - Procedure History (As Of: 11/25/2023 10:07:34 EDT) Procedure Dt/Tm: 09/19/2016 ; Provider: Jeremy KELLEY MD; Anesthesia Minutes: 0 ; Procedure Name: Brachytherapy ; Procedure Minutes: 0 ; Last Reviewed Dt/Tm: 11/25/2023 09:38:28 EDT Procedure Dt/Tm: 07/04/2015 ; Provider: Jeremy KELLEY MD; Anesthesia Minutes: 0 ; Procedure Name: TRUS/ Bx ; Procedure Minutes: 0 ; Last Reviewed Dt/Tm: 11/25/2023 09:38:28 EDT Anesthesia Minutes: 0 ; Procedure Name: Procedure on back ; Procedure Minutes: 0 ; Last Reviewed Dt/Tm: 11/25/2023 09:38:28 EDT Procedure Dt/Tm: 01/10/2021 ; Anesthesia Minutes: 0 ; Procedure Name: Colonoscopy ; Procedure Minutes: 0 ; Last Reviewed Dt/Tm: 11/25/2023 09:38:28 EDT Procedure Dt/Tm: 04/02/2016 ; Provider: Jeremy KELLEY MD; Anesthesia Minutes: 0 ; Procedure Name: Cystoscopy ; Procedure Minutes: 0 ; Last Reviewed Dt/Tm: 11/25/2023 09:38:28 EDT Procedure Dt/Tm: 05/07/2017 ; Provider: Jeremy KELLEY MD; Anesthesia Minutes: 0 ; Procedure Name: Cysto/ UD ; Procedure Minutes: 0 ; Last Reviewed Dt/Tm: 11/25/2023 09:38:28 EDT Provider: Shira Burgess MD; Anesthesia Minutes: 0 ; Procedure Name: External beam radiotherapy ; Procedure Minutes: 0 ; Last Reviewed Dt/Tm: 11/25/2023 09:38:28 EDT Anesthesia Minutes: 0 ; Procedure Name: Appendectomy ; Procedure Minutes: 0 ; Last Reviewed Dt/Tm: 11/25/2023 09:38:28 EDT Procedure Dt/Tm: 04/11/2016 ; Provider: Jeremy KELLEY MD; Anesthesia Minutes: 0 ; Procedure Name: TURP - Transurethral resection of prostate ; Procedure Minutes: 0 ; Last Reviewed Dt/Tm: 11/25/2023 09:38:28 EDT Procedure Dt/Tm: 01/10/2021 ; Anesthesia Minutes: 0 ; Procedure Name: EGD - Esophagogastroduodenoscop y ; Procedure Minutes: 0 ; Last Reviewed Dt/Tm: 11/25/2023 09:38:28 EDT Procedure Dt/Tm: 12/21/2021 ; Provider: JESUS RAM MD; Anesthesia Minutes: 0 ; Procedure Name: TURP ; Procedure Minutes: 0 ; Last Reviewed Dt/Tm: 11/25/2023 09:38:28 EDT Family History Family History (As Of: 11/25/2023 10:07:34 EDT) Father: Relation: Father ; Gender: Male ; Nomenclature: Heart disease ; Value: Positive Nomenclature: Hypertension ; Value: Positive Mother: Relation: Mother ; Gender: Female ; Nomenclature: Cancer ; Value: Positive Nomenclature: Diabetes mellitus type 2 ; Value: Positive Nomenclature: Hypertension ; Value: Positive Sister: Relation: Sister ; Gender: Female ; Nomenclature: Cancer ; Value: Positive Medicare/Medicaid Social History FT Social History (As Of: 11/25/2023 10:07:34 EDT) Alcohol: Denies Alcohol Use (Last Updated: 11/25/2023 09:38:54 EDT by Carley Anduajr LPN ) Tobacco: Denies Tobacco Use Former smoker, quit more than 30 days ago Tobacco Use:. Never Smokeless Tobacco Use:. Cigarettes, 2 per d (more content not included)... Normal [facility] Comment on above: Result Comment: Elec tronically Signed By: Raegan March MD\.br\Date and Time Signed: 12/04/23 12:44 EDT\.br\Electronically Co-Signed By: Carley Andujar LPN\.br\Date and Time Co-Signed: 11/25/23 13:49 EDT CHEMISTRYOrdered By: SYSTEM SYSTEM on 11-28-2023 Albumin [Mass/Vol] 4.3 g/dL Normal 3.3 - 5.0 gm/dL R emisol Chem Albumin/Globulin [Mass ratio] 1.5 {ratio} Normal 1.1 - 2.2 [facility] ALP [Catalytic activity/Vol] 65 [iU]/d Normal 21 - 98 Int._Unit/L [facility] ALT No additional P-5'-P [Catalytic activity/Vol] 14 [iU]/d Normal 6 - 46 Int._Unit/L [facility] Anion gap [Moles/Vol] 12 mmol/L Normal 6 - 16 mEq/L [facility] AST [Catalytic activity/Vol] 16 [iU]/d Normal 5 - 43 Int._Unit/L [facility] Bilirubin [Mass/Vol] 0.4 mg/dL Normal 0.0 - 1.1 mg/dL [facility] Calcium [Mass/Vol] 9.2 mg/dL Normal 8.9 - 11.1 mg/dL [facility] Chloride [Moles/Vol] 105 mmol/L Normal 101 - 111 mmol/L [facility] Cholesterol [Mass/Vol] 126 mg/dL Normal 120 - 200 mg/dL [facility] Cholesterol in HDL [Mass/Vol] 31 mg/dL Invalid Interpretation Code [facility] Comment on above: Result Comment: '>= 60 LOW RISK' '<= 40 HIGH RISK' Cholesterol in LDL [Mass/Vol] 71 mg/dL Normal <=129mg/dL [facility] Cholesterol in VLDL [Mass/Vol] 31 mg/dL Normal 7 - 40 mg/dL [facility] CO2 [Moles/Vol] 28 mmol/L Normal 21 - 31 mmol/L Remis ol Chem Creatinine [Mass/Vol] 1.2 mg/dL Normal 0.5 - 1.3 mg/dL [facility] eGFR 63 mL/min/1.73 m2 Normal >=59mL/min /1.73 m2 [facility] Globulin (S) [Mass/Vol] 2.9 g/dL Normal 1.4 - 4.0 gm/dL [facility] Glucose [Mass/Vol] 113 mg/dL Normal 55 - 199 mg/dL Re misol Chem Potassium [Moles/Vol] 4.3 mmol/L Normal 3.5 - 5.3 mmol/L [facility] Prostate specific Ag [Mass/Vol] ng/mL Low 0.1 - 3.5 ng/mL [facility] Comment on above: Interpretive Data: T he concentration of PSA determined by different manufacturers can vary due to differences in assay methods and reagent specificity. Values obtained from different assay methods cannot be used interchangeably. The methodology used for this result was chemiluminescence using [employer]'s Access Hybritech PSA reagent. Protein [Mass/Vol] 7.2 g/dL Normal 6.0 - 7.8 gm/dL R emisol Chem Sodium [Moles/Vol] 141 mmol/L Normal 135 - 145 mmol/L [facility] Triglyceride [Mass/Vol] 155 mg/dL High <=149mg/dL [facility] Urea nitrogen [Mass/Vol] 19 mg/dL Normal 5 - 21 mg/dL [facility] Urea nitrogen/Creatinin e [Mass ratio] 16 mg/mg Normal 10 - 20 [facility] CMPon 11-28-2023 Albumin [Mass/Vol] 4.3 g/dL Normal 3.3-5.0 [facility] Comment on above: Performed By: #### 2 [id number] #### [facility] [address] [place] [address] Albumin/Globulin (S) [Mass conc ratio] 1.5 Normal 1.1-2.2 [facility] Comment on above: Performed By: #### 2 [id number] #### [facility] [address] [place] [address] ALP [Catalytic activity/Vol] 65 Int._Unit/L Normal 21-98 [facility] Comment on above: Performed By: #### 2 [id number] #### [facility] [address] [place] [address] ALT No additional P-5'-P [Catalytic activity/Vol] 14 Int._Unit/L Normal 6-46 [facility] Comment on above: Performed By: #### 2 [id number] #### [facility] [address] [place] [address] Anion gap [Moles/Vol] 12 mmol/L Normal 6-16 [facility] Comment on above: Performed By: #### 2 [id number] #### [facility] [address] [place] [address] AST [Catalytic activity/Vol] 16 Int._Unit/L Normal 5-43 [facility] Comment on above: Performed By: #### 2 [id number] #### [facility] [address] [place] [address] Bilirubin [Mass/Vol] 0.4 mg/dL Normal 0.0-1.1 [facility] Comment on above: Performed By: #### 2 [id number] #### [facility] [address] [place] [address] Calcium [Mass/Vol] 9.2 mg/dL Normal 8.9-11.1 [facility] Comment on above: Performed By: #### 2 [id number] #### [facility] [address] [place] [address] Chloride [Moles/Vol] 105 mmol/L Normal 101-111 [facility] Comment on above: Performed By: #### 2 [id number] #### [facility] [address] [place] [address] CO2 [Moles/Vol] 28 mmol/L Normal 21-31 [facility] Comment on above: Performed By: #### 2 [id number] #### [facility] [address] [place] [address] Creatinine [Mass/Vol] 1.2 mg/dL Normal 0.5-1.3 [facility] Comment on above: Performed By: #### 2 [id number] #### [facility] [address] [place] [address] Globulin (S) [Mass/Vol] 2.9 g/dL Normal 1.4-4.0 [facility] Comment on above: Performed By: #### 2 [id number] #### [facility] [address] [place] [address] Glucose [Mass/Vol] 113 mg/dL Normal 55-199 [facility] Comment on above: Performed By: #### 2 [id number] #### [facility] [address] [place] [address] Potassium [Moles/Vol] 4.3 mmol/L Normal 3.5-5.3 [facility] Comment on above: Performed By: #### 2 [id number] #### [facility] [address] [place] [address] Protein [Mass/Vol] 7.2 g/dL Normal 6.0-7.8 [facility] Comment on above: Performed By: #### 2 [id number] #### [facility] [address] [place] [address] Sodium [Moles/Vol] 141 mmol/L Normal 135-145 [facility] Comment on above: Performed By: #### 2 [id number] #### [facility] [address] [place] [address] Urea nitrogen [Mass/Vol] 19 mg/dL Normal 5-21 [facility] Comment on above: Performed By: #### 2 [id number] #### [facility] [address] [place] [address] Urea nitrogen/Creatinin e [Mass ratio] 16 No Units Normal 10-20 [facility] Comment on above: Performed By: #### 2 [id number] #### [facility] [address] [place] [address] Lipid Panelon 11-28-2023 Cholesterol [Mass/Vol] 126 mg/dL Normal 120-200 [facility] Comment on above: Performed By: #### 2 [id number] #### [facility] [address] [place] [address] Cholesterol in HDL [Mass/Vol] 31 mg/dL Invalid Interpretation Code [facility] Comment on above: Result Comment: '>= 60 LOW RISK' '<= 40 HIGH RISK' Performed By: #### 2 [id number] #### [facility] [address] [place] [address] Cholesterol in LDL [Mass/Vol] 71 mg/dL Normal <=129 [facility] Comment on above: Performed By: #### 2 [id number] #### [facility] [address] [place] [address] Cholesterol in VLDL [Mass/Vol] 31 mg/dL Normal 7-40 [facility] Comment on above: Performed By: #### 2 [id number] #### [facility] [address] [place] [address] Triglyceride [Mass/Vol] 155 mg/dL High <=149 [facility] Comment on above: Performed By: #### 2 [id number] #### [facility] [address] [place] [address] PSA Screen, Totalon 11-28-19 24 Prostate specific Ag [Mass/Vol] ng/mL Low 0.1-3.5 [facility] Comment on above: Result Comment: The concentration of PSA determined by different manufacturers can vary due to differences in assay methods and reagent specificity. Values obtained from different assay methods cannot be used interchangeably. The methodology used for this result was chemiluminescence using [employer]'s Access Hybritech PSA reagent. Performed By: #### 1 [id number] #### [facility] [address] [place] [address] eGFRon 11-28-2023 eGFR 63 mL/min/1.73 m2 Normal >=59 [facility] Comment on above: Order Comment: Order added by Discern Expert. Performed By: #### 1 [id number] #### [facility] [address] [place] [address] Ambulatory Visit Summaryon 0 11-25-2023 Ambulatory Visit Summary MILAN CAMARILLO :1950 Visit Date:11/25/2023 Ambulatory Visit Instructions Your Diagnosis Annual visit for general adult medical examination without abnormal findings COPD without exacerbation Type 2 diabetes mellitus without complication, without long-term current use of insulin Hypertension Hyperlipidemia BPH with urinary obstruction GERD (gastroesophageal reflux disease) Screening for prostate cancer Screening declined by patient Class 3 severe obesity due to excess calories in adult Your Care Team Attending Physician - Raegan March MD Primary Care Physician - Raegan March MD This Is Your Medications List albuterol (Albuterol (Eqv-ProAir HFA) 90 mcg/inh inhalation aerosol) albuterol (albuterol 0.083% Inh Mary 3 mL) aspirin (aspirin 81 mg Oral EC Tab) atenolol (atenolol 50 mg Tab) atorvastatin (atorvastatin 40 mg Tab) cetirizine (cetirizine 10 mg Tab) cholecalciferol (Vitamin D3 2000 intl units) fluticasone nasal (Flonase) furosemide (furosemide 20 mg Tab) glipiZIDE (glipiZIDE 2.5 mg ER Tab) ibuprofen (ibuprofen 200 mg Tab) imipramine (imipramine 50 mg oral tablet) irbesartan (irbesartan 75 mg Tab) melatonin (Melatonin) metformin (metformin 500 mg Tab) olodaterol-tiotropium (Stiolto Respimat 2.5 mcg-2.5 mcg inhalation aerosol) omega-3 polyunsaturated fatty acids (Fish Oil 1000 mg oral capsule) omeprazole (omeprazole 40 mg Cap-DR) ropinirole (ropinirole 0.5 mg Tab) sulfamethoxazole-trimetho prim (Bactrim D.S. 800 mg-160 mg Tab) tamsulosin (tamsulosin 0.4 mg Cap) terazosin (terazosin 2 mg Cap) Procedures Performed TURP - Transurethral resection of prostate (12/21/2021), Colonoscopy (01/10/2021), EGD - Esophagogastroduodenoscop y (01/10/2021), Cystourethroscopy with dilation of urethral stricture (05/07/2017), Brachytherapy (09/19/2016), TURP - Transurethral resection of prostate (04/11/2016), Cystoscopy (04/02/2016), Transrectal biopsy of prostate using ultrasound (US) guidance (07/04/2015), Appendectomy, External beam radiotherapy, Procedure on back. Discharge Vitals Heart Rate (Peripheral) 57 Respiratory Rate 20 Blood Pressure 120/62 Height 182 cm Height 72 in Weight 124.9 kg Weight 274.78 lb BMI 37.71 What to do next Scheduled Follow-Up Appointments Friday 9:20 AM EDT With: Where: [facility] Invalid Interpretation Code [address] [place] [address]- \.br\ Friday 9:45 AM EDT \.br\ With: ALLIE CHOPRA, Jeremy Avery\.br\ Where: [facility] Patient Educationon 11-25-19 24 Patient Education Endocrinology Diabetes Mellitus and Nutrition, Adult When you have diabetes, or diabetes mellitus, it is very important to have healthy eating habits because your blood sugar (glucose) levels are greatly affected by what you eat and drink. Eating healthy foods in the right amounts, at about the same times every day, can help you: ? Manage your blood glucose. ? Lower your risk of heart disease. ? Improve your blood pressure. ? Reach or maintain a healthy weight. What can affect my meal plan? Every person with diabetes is different, and each person has different needs for a meal plan. Your health care provider may recommend that you work with a dietitian to make a meal plan that is best for you. Your meal plan may vary depending on factors such as: ? The calories you need. ? The medicines you take. ? Your weight. ? Your blood glucose, blood pressure, and cholesterol levels. ? Your activity level. ? Other health conditions you have, such as heart or kidney disease. How do carbohydrates affect me? Carbohydrates, also called carbs, affect your blood glucose level more than any other type of food. Eating carbs raises the amount of glucose in your blood. It is important to know how many carbs you can safely have in each meal. This is different for every person. Your dietitian can help you calculate how many carbs you should have at each meal and for each snack. How does alcohol affect me? Alcohol can cause a decrease in blood glucose (hypoglycemia), especially if you use insulin or take certain diabetes medicines by mouth. Hypoglycemia can be a life-threatening condition. Symptoms of hypoglycemia, such as sleepiness, dizziness, and confusion, are similar to symptoms of having too much alcohol. ? Do not drink alcohol if: ? [...] (148 mL), or one 1? oz glass of hard liquor (44 mL). ? Keep yourself hydrated with water, diet soda, or unsweetened iced tea. Keep in mind that regular soda, juice, and other mixers may contain a lot of sugar and must be counted as carbs. What are tips for following this plan? Reading food labels ? Start by checking the serving size on the Nutrition Facts label of packaged foods and drinks. The number of calories and the amount of carbs, fats, and other nutrients listed on the label are based on one serving of the item. Many items contain more than one serving per package. ? Check the total grams (g) of carbs in one serving. ? Check the number of grams of saturated fats and trans fats in one serving. Choose foods that have a low amount or none of these fats. ? Check the number of milligrams (mg) of salt (sodium) in one serving. Most people should limit total sodium intake to less than 2,300 mg per day. ? Always check the nutrition information of foods labeled as low-fat or nonfat. These foods may be higher in added sugar or refined carbs and should be avoided. ? Talk to your dietitian to identify your daily goals for nutrients listed on the label. Shopping ? Avoid buying canned, pre-made, or processed foods. These foods tend to be high in fat, sodium, and added sugar. ? Shop around the outside edge of the grocery store. This is where you will most often find fresh fruits and vegetables, bulk grains, fresh meats, and fresh dairy products. Cooking ? Use low-heat cooking methods, such as baking, instead of high-heat cooking methods, such as deep frying. ? Cook using healthy oils, such as olive, canola, or sunflower oil. ? Avoid cooking with butter, cream, or high-fat meats. Meal planning ? Eat meals and snacks regularly, preferably at the same times every day. Avoid going long periods of time without eating. ? Eat foods that are high in fiber, such as fresh fruits, vegetables, beans, and whole grains. ? Eat 4?6 oz (112?168 g) of lean protein each day, such as lean meat, chicken, fish, eggs, or tofu. One ounce (oz) (28 g) of lean protein is equal to: ? 1 oz (28 g) of meat, chicken, or fish. ? 1 egg. ? ? cup (62 g) of tofu. ? Eat some foods each day that contain healthy fats, such as avocado, nuts, seeds, and fish. What foods should I eat? Fruits Berries. Apples. Oranges. Peaches. Apricots. Plums. Grapes. Mangoes. Papayas. Pomegranates. Kiwi. Cherries. Vegetables Leafy greens, including lettuce, spinach, kale, chard, mat greens, mustard greens, and cabbage. Beets. Cauliflower. Broccoli. Carrots. Green beans. Tomatoes. Peppers. Onions. Cucumbers. [place] sprouts. Grains Whole grains, such as whole-wheat or whole-grain bread, crackers, tortillas, cereal, and pasta. Unsweetened oatmeal. (more content not included)... Normal [facility] Screenson 11-25-2023 Screens [id number] Normal [facility] Patient Educationon 09-15-19 24 Patient Education Urology Clean Intermittent Catheterization, Male Clean intermittent catheterization (CIC) is a procedure to remove urine from the bladder by placing a small, flexible tube (catheter) into the bladder though the urethra. The urethra is a tube in the body that carries urine from the bladder out of the body. CIC may be done when: ? You cannot completely empty your bladder on your own. This may be due to a blockage in the bladder or urethra. ? Your bladder leaks urine. This may happen when the muscles or nerves near the bladder are not working normally, so the bladder overflows. Your health care provider will show you how to perform CIC and will help you to become comfortable performing this procedure at home. Your health care provider will also help you to get the home care supplies that are needed for this procedure. Supplies needed: ? Germ-free (sterile), water-based lubricant. ? A container for urine collection. You may also use the toilet to dispose of urine from the catheter. ? A catheter. Your health care provider will determine the best size for you. ? Use this catheter size: ? Clean gloves. ? Soap and water. ? Towel. How to perform this procedure: Most people need CIC at least 4 times per day to adequately empty the bladder. Your health care provider will tell you how often you should perform CIC. ? Number of times per day to perform CIC: To perform CIC, follow these steps: 1. Wash your hands with soap and water. If soap and water are not available, use hand high school admissions representative. 2. Clean your penis with soap and water. Dry the tip of your penis completely. 3. Prepare the supplies that you will use during the procedure. Open the catheter package and lubricant. 4. Get in a comfortable position. Possible positions include: ? Sitting on a toilet, a chair, or the edge of a bed. ? Standing near a toilet. ? Lying down with your head raised on pillows and your knees pointing to the ceiling. You may wish to place a waterproof mat or pad under you. 5. If you are using a urine collection container, position it between your legs. 6. Urinate, if you are able. 7. Put on gloves. 8. Apply lubricant to about 2 inches (5 cm) of the tip of the catheter. 9. Set the catheter down on a clean, dry surface within reach. 10. Gently stretch your penis out from your body. Pull back any skin that covers the end of your penis (foreskin). Clean the end of your penis with medicated sterile swabs as told by your health care provider. 11. Hold your penis upward at a 45?60 degree angle. This helps to straighten the urethra. 12. Slowly insert the lubricated catheter straight into your urethra until urine flows freely. This is usually about 6?8 inches (15?20 cm). 13. When urine starts to flow freely, insert the catheter 1 inch (3 cm) more. Allow urine to drain into the toilet or the urine collection container. 14. When urine stops flowing, slowly remove the catheter. 15. Note the color, amount, and odor of the urine. 16. Measure your urine and note the amount, if told by your health care provider. 17. Discard the urine in the toilet. 18. Clean your penis using soap and water. 19. Move the foreskin back in place, if applicable. 20. If you are using a single-use catheter, discard the catheter and supplies. 21. Wash your hands with soap and water. 22. If you are using a reusable catheter, follow package instructions about how to clean the catheter after each use. How often should I perform this procedure? ? Do CIC to empty your bladder every 4?6 hours or as often as told by your health care provider. ? If you have symptoms of too much urine in your bladder (overdistension) and you are not able to urinate, perform CIC. Symptoms of overdistension may include: ? Restlessness. ? Sweating or chills. ? Headache. ? Flushed or pale skin. ? Bloated lower abdomen. What are the risks? Generally, this is a safe procedure, however problems may occur, including: ? Infection. ? Injury to the urethra. ? Irritation of the urethra. Follow these instructions at home General instructions ? Drink enough fluid to keep your urine pale yellow. ? Dispose of a multiple use catheter when it becomes dry, brittle, or cloudy. This usually happens after you use the catheter for 1 week. ? Avoid caffeine. Caffeine may make you need to urinate more frequently and more urgently. ? When traveling, bring extra supplies with you in case of delays. Keep supplies with you in a place that you can access easily. If traveling by plane: ? Make sure that the lubricant in your carry-on bag is less than 3.4 ounces (100 mL). ? Use a single-use catheter. It may be difficult to clean a reusable catheter in a small bathroom. ? Take xviu-ore-yazpexa and prescription medicines only as told by your he (more content not included)... Normal [facility] Urology Office/Clinic Noteon 09-15-2023 Urology Office/Clinic Note Chief Complaint 6 mo f/u w/ PSA HPI Staff 6 month f/u with PSA Dx: hx of prostate cancer (EBRT and Brachytherapy 2016), BPH with urinary obstruction (TURP 12/21/21), incomplete bladder emptying and chronic prostatitis. Tamsulosin 0.4mg QD and Terazosin 2mg QD. PSA not previously drawn, will draw in office today Denies any visible blood, pain/burning No concerns today History of Present Illness Tests reviewed: reviewed UA. I have reviewed the previous health record information and history for this patient from Dr. Kelley. I have reviewed and verified the staff HPI to be accurate for this encounter. There have been no associated fever, chills, flank pain, or blood in the urine. Denies any urinary infections since last encounter. Review of Systems PHQ Score Initial Depression Screen Score: 0 SCORE ROS - Provider Constitutional: denies weight loss, denies hot flashes. Eyes: denies eye problems. Gastrointestinal: denies nausea, denies vomiting. Cardiovascular: denies chest pain or angina. Integumentary: no dryness Musculoskeletal: denies musculoskeletal symptoms. ENMT: denies otolaryngeal symptoms. Respiratory: no shortness of breath. Heme/Lymph: denies easy bleeding tendency, denies easy bruising tendency. Psychiatric: no confusion, no anxiety. Genitourinary: See HPI. Physical Exam Vitals & Measurements T: 36.9 ?C(Temporal Artery) HR: 61(Peripheral) RR: 16 BP: 139/80 HT: 74 in HT: 188 cm WT: 127 kg WT: 279.4 lb BMI: 35.93 General Appearance: alert, no distress, well nourished, well developed male. Assessment/Plan 1. History of prostate cancer (Z85.46: Personal history of malignant neoplasm of prostate) PSA: 08/26/22 - <0.13 10/15/22 - <0.1 TRUS/bx 07/04/15. EBRT and brachytherapy 2016. No longer follows with Dr. Burgess. Pt did not have PSA drawn prior to today's appointment. MA unsuccessful with blood drawn in office. Pt states this is normal for him. -Follow up in 4 months with PSA 2. BPH with urinary obstruction (N40.1: Benign prostatic hyperplasia with lower urinary tract symptoms) S/p TURP 12/21/21 at [facility] by Dr. Ram - Mary showed BPH and radiation effect. Small focus of atypical glands with radiation effect. Taking Tamsulosin 0.4 mg bid and Terazosin 2 mg qd. See #3. 3. Incomplete bladder emptying (R33.9: Retention of urine, unspecified) PVR (cc): 12/09/22 - >999 12/09/22 - 746 repeat after end void 03/17/23 - 750 Was told at [facility] he would no longer have to CIC after TURP. Continues CIC 2x per day. Voids in between and prior to CIC. Feels voided and CIC volumes are similar. 4. Chronic prostatitis (N41.1: Chronic prostatitis) Has been tx'd with Augmentin 875 mg in the past. UA today shows small leuks, could be attributed to CIC. Does report UTIs since last visit. Once per month. Feels he has had at least 6 infections since last being seen. Typical sx include dysuria. Pt states he is unable to fully insert cath with an infection due to blood clots. Pt was CIC 3x per day at that time. States he tries to be as clean as possible. Discussed stating prophylactic abx. Will start Bactrim DS qd for at least 3 months. Follow-up With When Contact Information ALLIE CHOPRA, Jeremy Avery, URL [address] [place] [address]- Additional Instructions: 4 mos w/ PSA Patient Education Clean Intermittent Catheterization, Male I, Venita Chatterjee, personally scribed for Dr. Kelley on 09/15/2023 09:59:31. . Documentation recorded by the scribe, Venita Chatterjee, accurately reflects the services(s) I performed and decisions made by me. Authenticated by Dr. Kelley on 09/15/2023 10:03:14. Problem List/Past Medical History Ongoing Acute URI Arthritis Back pain BPH with urinary obstruction Chronic prostatitis COPD without exacerbation Former smoker GERD (gastroesophageal reflux disease) Gross hematuria History of prostate cancer History of pyelonephritis HLD (hyperlipidemia) Hyperlipidemia Hypertension Impotence Incomplete bladder emptying Intermittent self-catheterization of bladder Left varicocele Non-smoker Renal mass Sinusitis Type 2 diabetes mellitus without complication, without long-term current use of insulin Urinary tract infection Historical No qualifying data Procedure/Surgical History TURP - Transurethral resection of prostate (12/21/2021), Colonoscopy (01/10/2021), EGD - Esophagogastroduodenoscop y (01/10/2021), Cystourethroscopy with dilation of urethral stricture (05/07/2017), Brachytherapy (09/19/2016), TURP - Transurethral resection of prostate (04/11/2016), Cystoscopy (04/02/2016), Transrectal biopsy of prostate using ultrasound (US) guidance (07/04/2015), Appendectomy, External beam radiotherapy, Procedure on back. Medications Albuterol (Eqv-ProAir HFA) 90 mcg/inh inhalation aerosol, 2 puff(s), Inhalation, q6hr, 3 refills albuterol 0.083% Inh Mary (more content not included)... Normal [facility] Comment on above: Result Comment: Elec tronically Signed By: Jeremy KELLEY MD\.br\Date and Time Signed: 09/15/23 10:03 EDT\.br\Electronically Co-Signed By: Venita Chatterjee\.br\Date and Time Co-Signed: 09/15/23 09:59 EDT Ambulatory Visit Summaryon 0 09-11-2023 Ambulatory Visit Summary MILAN CAMARILLO :1950 Visit Date:09/11/2023 Ambulatory Visit Instructions Your Diagnosis COPD without exacerbation Sinusitis Type 2 diabetes mellitus without complication, without long-term current use of insulin GERD (gastroesophageal reflux disease) BMI 34.0-34.9,adult Class 1 obesity due to excess calories in adult Former smoker Your Care Team Attending Physician - Raegan March MD Primary Care Physician - Raegan March MD This Is Your Medications List albuterol (Albuterol (Eqv-ProAir HFA) 90 mcg/inh inhalation aerosol) albuterol (albuterol 0.083% Inh Mary 3 mL) aspirin (aspirin 81 mg Oral EC Tab) atenolol (atenolol 50 mg Tab) atorvastatin (atorvastatin 40 mg Tab) cetirizine (cetirizine 10 mg Tab) cholecalciferol (Vitamin D3 2000 intl [...] of prostate (12/21/2021), Colonoscopy (01/10/2021), EGD - Esophagogastroduodenoscop y (01/10/2021), Cystourethroscopy with dilation of urethral stricture (05/07/2017), Brachytherapy (09/19/2016), TURP - Transurethral resection of prostate (04/11/2016), Cystoscopy (04/02/2016), Transrectal biopsy of prostate using ultrasound (US) guidance (07/04/2015), Appendectomy, External beam radiotherapy, Procedure on back. Discharge Vitals Temperature (Temporal Artery) 35.6 ?C Heart Rate (Peripheral) 68 Respiratory Rate 16 Blood Pressure 128/82 Height 188 cm Height 74 in Weight 123.6 kg Weight 271.92 lb BMI 34.97 What to do next Scheduled Follow-Up Appointments Friday 9:15 AM EDT With: ALLIE CHOPRA, Jeremy Avery Where: [facility] [address] [address]- \.br\ Medications\.br\ What How Much When Why Instructions\.br \ Unchanged albuterol (Albuterol (Eqv-ProAir HFA) 90 mcg/ [...] 1 Tablets By Mouth Every day\.br\ Unchanged cetirizine (cetirizine 10 mg Tab) 1 Tablets By Mouth Every day Sinusitis COPD without exacerbation Type 2 diabetes mellitus without complication, without long-term current use of insulin BMI 34.0-34.9,adult Class 1 obesity due to excess calories in adult Former smoker\.br\ Unchanged cholecalciferol (Vitamin D3 2000 intl units)\.br\ Unchanged famotidine (famotidine 20 mg Tab) See instructions TAKE 1 TABLET BY MOUTH TWICE A DAY NEEDED FOR GERD SYMPTOMS \.br\ Unchanged furosemide (furosemide 20 mg Tab) See instructions TAKE 1 TABLET BY MOUTH TWICE A DAY \.br\ Unchanged glipiZIDE (glipiZIDE 2.5 mg ER Tab) 1 Tablets By Mouth Every day\.br\ Unchanged ibuprofen (ibuprofen 200 mg Tab)\.br\ Unchanged imipramine (imipramine 50 mg oral tablet) 1 Tablets By Mouth 2 times a day\.br\ Unchanged irbesartan (irbesartan 75 mg Tab) 1 Tablets By Mouth Every day\.br\ Unchanged metformin (metformin 500 mg Tab) 1 Tablets By Mouth 2 times a day\.br\ Unchanged olodaterol-tiotr opium (Stiolto Respimat 2.5 mcg-2.5 mcg inhalation aerosol) [...] with urinary obstruction\.br\ Chronic prostatitis\.br\ COPD without exacerbation\.br \ Former smoker\.br\ GERD (gastroesophagea l reflux disease)\.br\ Gross hematuria\.br\ History of prostate cancer\.br\ History of pyelonephritis\. br\ HLD (hyperlipidemia) \.br\ Hyperlipidemia\. br\ Hypertension\.br \ Impotence\.br\ Incomplete bladder emptying\.br\ Intermittent self-catheteriza tion of bladder\.br\ Left varicocele\.br\ Non-smoker\.br\ Renal mass\.br\ Sinusitis\.br\ Type 2 diabetes mellitus without complication, without long-term current use of insulin\.br\ Urinary tract infection\.br\ Patient Survey\.br\ You may receive a survey via text or e-mail asking about your office visit. Please share your experience with us by completing your survey. We appreciate your feedback and thank you for choosing us for your care.\.br\ \.br\ [facility] Family Medicine Office/Clini c Noteon 09-11-2023 Family Medicine Office/Clinic Note HPI Staff Milan is a 72 year old male presenting for one month follow up sinusitis and copd NIKKI treated with steroids and zpak took the meds and then took coricidin otc and it helped clear things up Patient is here for follow up on COPD: Feeling controlled on medication: somewhat Need medication refilled: no Do you use O2? no Sleep study done 2 weeks ago goes back for the titration study for the cpap flu: UTD 05/23/23 questions/concerns: out of famotidine and having gerd sxs, needs a refill History of Present Illness - Pt presents for follow up. Review of Systems PHQ Score Initial Depression Screen Score: 0 SCORE Physical Exam Vitals & Measurements T: 35.6 ?C(Temporal Artery) HR: 68(Peripheral) RR: 16 BP: 128/82 SpO2: 100% HT: 74 in HT: 188 cm WT: 123.6 kg WT: 271.92 lb BMI: 34.97 General: alert, no acute distress ENMT: oral mucosa moist, Cardiovascular: regular rate and rhythm, normal peripheral perfusion Respiratory: Lungs CTA, respirations non labored Extremities: no deformity, no trauma Neurological: oriented x 4, LOC appropriate for age, CN II-XII intact, motor strength equal & normal bilaterally, speech normal Abdomen: Soft, Nontender, Non-distended, + BS Assessment/Plan 1. COPD without exacerbation (J44.9: Chronic obstructive pulmonary disease, unspecified) - Sees Pulm. - Lungs sounds are good. - Follow up PRN Ordered: A1c POC 57912 Body Mass Index (BMI) documented 3008F Current tobacco non-user 1036F Depression Screening Negative 3352F Influenza immunization administered or previously received 4274F Most recent diastolic blood pressure 80-89 mm Hg 3079F Patient screen for fall risk: no falls in last year or 1 fall with no injury in last year 1101F Systolic BP <130 mm Hg (Most Recent) 3074F 2. Sinusitis (J32.9: Chronic sinusitis, unspecified) - Resolved Ordered: A1c POC 08435 Body Mass Index (BMI) documented 3008F Current tobacco non-user 1036F Depression Screening Negative 3352F Influenza immunization administered or previously received 4274F Most recent diastolic blood pressure 80-89 mm Hg 3079F Patient screen for fall risk: no falls in last year or 1 fall with no injury in last year 1101F Systolic BP <130 mm Hg (Most Recent) 3074F 3. Type 2 diabetes mellitus without complication, without long-term current use of insulin (E11.9: Type 2 diabetes mellitus without complications) - Need to check as patient as been on steroids. - No issues at this time Ordered: A1c POC 57528 Body Mass Index (BMI) documented 3008F Current tobacco non-user 1036F Depression Screening Negative 3352F Influenza immunization administered or previously received 4274F Most recent diastolic blood pressure 80-89 mm Hg 3079F Patient screen for fall risk: no falls in last year or 1 fall with no injury in last year 1101F Systolic BP <130 mm Hg (Most Recent) 3074F 4. GERD (gastroesophageal reflux disease) (K21.9: Gastro-esophageal reflux disease without esophagitis) - Will refill meds. - If H2 is not working we will switch to PPI. Ordered: A1c POC 93051 Body Mass Index (BMI) documented 3008F Current tobacco non-user 1036F Depression Screening Negative 3352F Influenza immunization administered or previously received 4274F Most recent diastolic blood pressure 80-89 mm Hg 3079F Patient screen for fall risk: no falls in last year or 1 fall with no injury in last year 1101F Systolic BP <130 mm Hg (Most Recent) 3074F 5. BMI 34.0-34.9,adult (Z68.34: Body mass index [BMI] 34.0-34.9, adult) - BMI education given Ordered: A1c POC 27464 Body Mass Index (BMI) documented 3008F Current tobacco non-user 1036F Depression Screening Negative 3352F Influenza immunization administered or previously received 4274F Most recent diastolic blood pressure 80-89 mm Hg 3079F Patient screen for fall risk: no falls in last year or 1 fall with no injury in last year 1101F Systolic BP <130 mm Hg (Most Recent) 3074F 6. Class 1 obesity due to excess calories in adult (E66.09: Other obesity due to excess calories) - Diet and exercise advised. Ordered: Body Mass Index (BMI) documented 3008F Current tobacco non-user 1036F Depression Screening Negative 3352F Influenza immunization administered or previously received 4274F Most recent diastolic blood pressure 80-89 mm Hg 3079F Patient screen for fall risk: no falls in last year or 1 fall with no injury in last year 1101F Systolic BP <130 mm Hg (Most Recent) 3074F 7. Former smoker (Z87.891: Personal history of nicotine dependence) - Please continue to not smoke. Ordered: Body Mass Index (BMI) documented 3008F Current tobacco non-user 1036F Depression Screening Negative 3352F Influenza immunization administered or previously received 4274F Most recent diastolic blood pressure 80-89 mm Hg 3079F Patient screen for fall risk: no falls in last year or 1 fall with no injury in last year 1101F Systolic BP <1 (more content not included)... Normal [facility] Comment on above: Result Comment: Elec tronically Signed By: Joaquim CHOPRA, Raegan Parker.br\Date and Time Signed: 09/11/23 08:42 EDT RAD - CT Reporton 09-04-2023 RAD - CT Report [id number]#1.00TIFF [facility] Consultation Noteon 08-29-19 Consultation Note [id number]#1.00TIFF [facility] Retail - Clinical Noteon Retail - Clinical Note [id number]#1.00TIFF [facility] Ambulatory Visit Summaryon 0 08-12-2023 Ambulatory Visit Summary RABIAMILAN Bennie :1950 Visit Date:08/12/2023 Ambulatory Visit Instructions Your Diagnosis COPD without exacerbation Type 2 diabetes mellitus without complication, without long-term current use of insulin BMI 34.0-34.9,adult Class 1 obesity due to excess calories in adult Former smoker Your Care Team Attending Physician - Raegan [...] of prostate (12/21/2021), Colonoscopy (01/10/2021), EGD - Esophagogastroduodenoscop y (01/10/2021), Cystourethroscopy with dilation of urethral stricture (05/07/2017), Brachytherapy (09/19/2016), TURP - Transurethral resection of prostate (04/11/2016), Cystoscopy (04/02/2016), Transrectal biopsy of prostate using ultrasound (US) guidance (07/04/2015), Appendectomy, External beam radiotherapy, Procedure on back. Discharge Vitals Temperature (Temporal Artery) 36.4 ?C Heart Rate (Peripheral) 72 Respiratory Rate 18 Blood Pressure 114/76 Height 188 cm Height 74 in Weight 121.35 kg Weight 266.97 lb BMI 34.33 What to do next Scheduled Follow-Up Appointments 2023 8:15 AM EDT With: Joaquim CHOPRA, Raegan Adler Where: [facility] Invalid Interpretation Code [address] [place] [address]- \.br\ Friday 9:30 AM EDT \.br\ With:\.br\ Where: [facility] Medicine Office/Clini c Noteon 08-12-2023 Family Medicine Office/Clinic Note HPI Staff Milan is a 72 year old male presenting for sick visit Acute cough, ears plugged _Respiratory C/O: Duration: 3 months ago, cough just won't clear up Body aches: no Chest congestion: yes Chills: yes Cough: yes Ear complaints: yes little plugged up Eye itching/watering: yes Fever: yes few weeks ago 100.[address] kelley rxed cipro Headache: yes Nasal congestion: yes Nasal discharge: yes clear Poor appetite: yes Reduced activity: yes Sinus pain/pressure: yes Sneezing: no Sputum production: yes yellow Wheezing: yes Ill contacts: no Remedies tried: cough syrup and mucinex_ _ _ flu: UTD 05/23/23 questions/concerns: recent UTI Dr Kelley rxed cipro 500mg bid for 10 days Review of Systems PHQ Score Initial Depression Screen Score: 0 SCORE Physical Exam Vitals & Measurements T: 36.4 ?C(Temporal Artery) HR: 72(Peripheral) RR: 18 BP: 114/76 SpO2: 97% HT: 74 in HT: 188 cm WT: 121.35 kg WT: 266.97 lb BMI: 34.33 General: alert, no acute distress ENMT: oral mucosa moist, Cardiovascular: regular rate and rhythm, normal peripheral perfusion Respiratory: Lungs CTA, respirations non labored Extremities: no deformity, no trauma Neurological: oriented x 4, LOC appropriate for age, CN II-XII intact, motor strength equal & normal bilaterally, speech normal Abdomen: Soft, Nontender, Non-distended, + BS Assessment/Plan 1. Sinusitis (J32.9: Chronic sinusitis, unspecified) Will do a medrol dose raimundo and Zpack. - Not sure if this is a chronic sinusitis vs Allergies vs COPD - Reasoning is he has not had any improvement. - Because of the wheezing today will treat with Abx with Medrol Ordered: azithromycin, = 1 packet(s), Oral, As Directed, as directed on package labeling, X 5 day(s), # 6 tab(s), Refills(s) 0, Pharmacy: [facility], 188, cm, 08/12/23 11:48:00 EST, Height/Length Dosing, 121.3, kg, 08/12/23 11:48:00 EST, Weight Dosing cetirizine, 10 mg = 1 tab(s), Oral, Daily, # 90 tab(s), Refills(s) 0, Pharmacy: [facility], 188, cm, 08/12/23 11:48:00 EST, Height/Length Dosing, 121.3, kg, 08/12/23 11:48:00 EST, Weight Dosing methylPREDNISolone, = 1 packet(s), Oral, As Directed, as directed on package labeling, X 6 day(s), # 21 tab(s), Refills(s) 0, Pharmacy: [facility], 188, cm, 08/12/23 11:48:00 EST, Height/Length Dosing, 121.3, kg, 08/12/23 11:48:00 EST, Weight Dosing 2. COPD without exacerbation (J44.9: Chronic obstructive pulmonary disease, unspecified) - As above - Tried to call Dr. Baez office to let them know about the lung findings. Ordered: azithromycin, = 1 packet(s), Oral, As Directed, as directed on package labeling, X 5 day(s), # 6 tab(s), Refills(s) 0, Pharmacy: [facility], 188, cm, 08/12/23 11:48:00 EST, Height/Length Dosing, 121.3, kg, 08/12/23 11:48:00 EST, Weight Dosing cetirizine, 10 mg = 1 tab(s), Oral, Daily, # 90 tab(s), Refills(s) 0, Pharmacy: [facility], 188, cm, 08/12/23 11:48:00 EST, Height/Length Dosing, 121.3, kg, 08/12/23 11:48:00 EST, Weight Dosing methylPREDNISolone, = 1 packet(s), Oral, As Directed, as directed on package labeling, X 6 day(s), # 21 tab(s), Refills(s) 0, Pharmacy: [facility], 188, cm, 08/12/23 11:48:00 EST, Height/Length Dosing, 121.3, kg, 08/12/23 11:48:00 EST, Weight Dosing Body Mass Index (BMI) documented 3008F Current tobacco non-user 1036F Depression Screening Negative 3352F Influenza immunization administered or previously received 4274F Most recent diastolic blood pressure <80 mm Hg 3078F Patient screen for fall risk: no falls in last year or 1 fall with no injury in last year 1101F Systolic BP <130 mm Hg (Most Recent) 3074F 3. Type 2 diabetes mellitus without complication, without long-term current use of insulin (E11.9: Type 2 diabetes mellitus without complications) - Well controlled. - Discuss steroids with DM Ordered: azithromycin, = 1 packet(s), Oral, As Directed, as directed on package labeling, X 5 day(s), # 6 tab(s), Refills(s) 0, Pharmacy: [facility], 188, cm, 08/12/23 11:48:00 EST, Height/Length Dosing, 121.3, kg, 08/12/23 11:48:00 EST, Weight Dosing cetirizine, 10 mg = 1 tab(s), Oral, Daily, # 90 tab(s), Refills(s) 0, Pharmacy: [facility], 188, cm, 08/12/23 11:48:00 EST, Height/Length Dosing, 121.3, kg, 08/12/23 11:48:00 EST, Weight Dosing methylPREDNISolone, = 1 packet(s), Oral, As Directed, as directed on package labeling, X 6 day(s), # 21 tab(s), Refills(s) 0, Pharmacy: [facility], 188, cm, 08/12/23 11:48:00 EST, Height/Length Dosing, 121.3, kg, 08/12/23 11:48:00 EST, Weight Dosing Body Mass Index (BMI) documented 3008F Current tobacco non-user 1036F Depression Screening Negative 3352F Influenza immunization administered or previously received 4274F Most recent diastolic blood pressure <80 mm Hg 3078F (more content not included)... Normal [facility] Comment on above: Result Comment: Elec tronically Signed By: Joaquim CHOPRA, Raegan Adler\.br\Date and Time Signed: 08/12/23 12:45 EST Patient Educationon 08-12-19 Patient Education Nutrition BMI for Adults What is BMI? Body mass index (BMI) is a number that is calculated from a person's weight and height. BMI can help estimate how much of a person's weight is composed of fat. BMI does not measure body fat directly. Rather, it is an alternative to procedures that directly measure body fat, which can be difficult and expensive. BMI can help identify people who may be at higher risk for certain medical problems. What are BMI measurements used for? BMI is used as a screening tool to identify possible weight problems. It helps determine whether a person is obese, overweight, a healthy weight, or underweight. BMI is useful for: ? Identifying a weight problem that may be related to a medical condition or may increase the risk for medical problems. ? Promoting changes, such as changes in diet and exercise, to help reach a healthy weight. BMI screening can be repeated to see if these changes are working. How is BMI calculated? BMI involves measuring your weight in relation to your height. Both height and weight are measured, and the BMI is calculated from those numbers. This can be done either in [place] or metric measurements. Note that charts and online BMI calculators are available to help you find your BMI quickly and easily without having to do these calculations yourself. To calculate your BMI in [place] measurements: 1. Measure your weight in pounds (lb). 2. Multiply the number of pounds by 703. ? For example, for a person who weighs 180 lb, multiply that number by 703, which equals 126,540. 3. Measure your height in inches. Then multiply that number by itself to get a measurement called inches squared. ? For example, for a person who is 70 inches tall, the inches squared measurement is 70 inches x 70 inches, which equals 4,900 inches squared. 4. Divide the total from step 2 (number of lb x 703) by the total from step 3 (inches squared): 126,540 ? 4,900 = 25.8. This is your BMI. To calculate your BMI in metric measurements: 1. Measure your weight in kilograms (kg). [...] 3.1 = 22.6. This is your BMI. What do the results mean? BMI charts are used to identify whether you are underweight, normal weight, overweight, or obese. The following guidelines will be used: ? Underweight: BMI less than 18.5. ? Normal weight: BMI between 18.5 and 24.9. ? Overweight: BMI between 25 and 29.9. ? Obese: BMI of 30 or above. Keep these notes in mind: ? Weight includes both fat and muscle, [...] the same way for men and women. Where to find more information For more information about BMI, including tools to quickly calculate your BMI, go to these websites: ? Centers for Disease Control and Prevention: www.cdc.gov ? [place] Heart Association: www.heart.org ? National Heart, Lung, and Blood [place]: www.nhlbi.nih.gov Summary ? Body mass index (BMI) is a number that is calculated from a person's weight and height. ? BMI may help estimate how much of a person's weight is composed of fat. BMI can help identify those who may be at higher risk for certain medical problems. ? BMI can be measured using Ethiopian measurements or metric measurements. ? BMI charts are used to identify whether you are underweight, normal weight, overweight, or obese. This information is not intended to replace advice given to you by your health care provider. Make sure you discuss any questions you have with your health care provider. Document Revised: 03/01/2020 Document Reviewed: 01/07/2020 [employer] Patient Education ? 2022 [employer] Normal [facility] RAD - CT Reporton 08-08-2023 RAD - CT Report [id number] Normal [facility] Retail - Clinical Noteon Retail - Clinical Note [id number] Normal [facility] URINALYSISOrdered By: Santiago Vasquez on 06-25-2023 [...] AM) Normal Negative [facility] UA Auto SS [place].plasma/Lit hium.RBC (Bld) [Mass ratio] 4-20 /HPF Normal [...] Desc Clean Catch (06/25/23 11:32 AM) Normal [facility] UA Auto SS Urobilinogen Qn (U) [id number] {Yamileth'U}/dL Normal 0.0 - 1.0 EU/dL [facility] UA Auto SS WBC Auto Ql (U) 2+ *ABN* (06/25/23 11:32 AM) Invalid Interpretation Code Negative [facility] UA Auto SS WBC LM.HPF (Urine sed) [#/Area] 16-25 /HPF Invalid Interpretation Code 0-5/HPF [facility] UA Auto SS CHEMISTRYOrdered By: SYSTEM SYSTEM on 06-09-2023 Albumin [Mass/Vol] 4.0 g/dL Normal 3.3 - 5.0 gm/dL R emisol Chem Albumin/Globulin [Mass ratio] 1.4 {ratio} Normal 1.1 - 2.2 Remisol Chem Alk Phos 75 [iU]/d Normal 21 - 98 Int._Unit/L Remisol Chem ALT 18 [iU]/d Normal 6 - 46 Int._Unit/L Remisol Chem Anion gap [Moles/Vol] 10 mmol/L Normal 6 - 16 mEq/L Remisol Chem AST 17 [iU]/d Normal 5 - 43 Int._Unit/L Remisol Chem Bili Total 0.6 mg/dL Normal 0.0 - 1.1 mg/dL Remisol Chem Calcium [Mass/Vol] 9.0 mg/dL Normal 8.9 - 11.1 mg/dL Remisol Chem Chloride [Moles/Vol] 104 mmol/L Normal 101 - 111 mmol/L Remisol Chem CO2 [Moles/Vol] 31 mmol/L Normal 21 - 31 mmol/L Remis ol Chem Creatinine [Mass/Vol] 1.2 mg/dL Normal 0.5 - 1.3 mg/dL Remisol Chem eGFR mL/min/1.73 m2 Normal >=59mL/min/1. 73 m2 Remisol Chem Globulin (S) [Mass/Vol] 2.9 g/dL Normal [...] (Bld) [Mass fraction] 5.2 % Normal <=5.9% [facility] ChemAutoSS HEMATOLOGYOrdered By: SYSTEM SYSTEM on 06-09-2023 Basophils/100 WBC (Bld) 1.1 % Normal 0.0 - 2.0 % FT HemeAutoSS Basophils/Leukocyt es Auto (Bld) [Pure # fraction] 0.1 E9/L Normal 0.0 - 0.2 E9/L [facility] HemeAutoSS Eosinophils/100 WBC (Bld) 5.7 % Normal 0.0 - 8.0 % [facility] HemeAutoSS Eosinophils/Leukoc ytes Auto (Bld) [Pure # fraction] 0.3 E9/L Normal 0.0 - 0.5 E9/L [facility] HemeAutoSS Lymphocytes/100 WBC (Bld) 17.1 % Normal 14.0 - 50.0 % FT HemeAutoSS Lymphocytes/Leukoc ytes Auto (Bld) [Pure # [...] 86.0 fL Normal 80.0 - 100.0 fL [facility] HemeAutoSS Platelet mean volume (Bld) [Entitic vol] 9.0 fL Normal 6.4 - 10.8 fL [facility] HemeAutoSS Platelets (Bld) [#/Vol] 186.0 E9/L Normal 150.0 - 500.0 E9/L [facility] HemeAutoSS RBC (Bld) [#/Vol] 4.5 E12/L Normal 4.3 - 5.9 E12/L [facility] HemeAutoSS WBC corrected for nucl RBC Auto (Bld) [#/Vol] 5.7 E9/L Normal 4.0 - 11.0 E9/L [facility] HemeAutoSS Comment on above: Result Comment: Ibeth e reviewed by HARVINDER. CHEMISTRYOrdered By: SYSTEM SYSTEM on 03-17-2023 Prostate specific Ag [Mass/Vol] ng/mL Normal 0.1 - 3.5 ng/mL [facility] Remisol CHEMISTRYOrdered By: SYSTEM SYSTEM on 11-25-2022 Cholesterol [Mass/Vol] 108 mg/dL Low 120 - 200 mg/dL [facility] Remisol Cholesterol in HDL [Mass/Vol] 32 mg/dL Invalid Interpretation Code [facility] Remisol Cholesterol in LDL [Mass/Vol] 53 mg/dL Normal <=129mg/dL [facility] Remisol Cholesterol in VLDL [Mass/Vol] 24 mg/dL Normal 7 - 40 mg/dL [facility] Remisol Triglyceride [Mass/Vol] 122 mg/dL Normal <=149mg/dL [facility] Remisol PROF 14(COMP METB)on 023 Albumin [Mass/Vol] 3.8 g/dL Normal 3.4-5.0 [facility] Comment on above: Performed By: #### C MP #### [facility] [address] [place] [address] Dr. Karina Del Valle Albumin/Globulin [Mass ratio] 1.0 {ratio} Normal [facility] Comment on above: Performed By: #### C MP #### [facility] [address] [place] [address] Dr. Karina Del Valle ALP [Catalytic activity/Vol] 103 U/L Normal 46-116 [facility] Comment on above: Performed By: #### C MP #### [facility] [address] [place] [address] Dr. Karina Del Valle ALT [Catalytic activity/Vol] 27 U/L Normal 16-63 [facility] Comment on above: Performed By: #### C MP #### [facility] [address] [place] [address] Dr. Karina Del Valle Anion gap [Moles/Vol] 13.3 mmol/L Normal [facility] Comment on above: Performed By: #### C MP #### [facility] [address] [place] [address] Dr. Karina Del Valle AST [Catalytic activity/Vol] 21 U/L Normal 15-37 [facility] Comment on above: Performed By: #### C MP #### [facility] [address] [address] [address] Karina Del Valle Bilirubin [Mass/Vol] 0.5 mg/dL Normal 0.2-1.0 [facility] Comment on above: Performed By: #### C MP #### [facility] [address] [address] [address] Karina Del Valle Calcium [Mass/Vol] 9.0 mg/dL Normal 8.5-10.1 [facility] Comment on above: Performed By: #### C MP #### [facility] [address] [place] [address] Dr. Karina Del Valle Chloride [Moles/Vol] 106 mmol/L Normal 98-107 [facility] Comment on above: Performed By: #### C MP #### [facility] [address] [place] [address] Dr. Karina Del Valle CO2 [Moles/Vol] 28.7 mmol/L Normal 21.0-32.0 [facility] Comment on above: Performed By: #### C MP #### [facility] [address] [place] [address] Dr. Karina Del Valle Creatinine [Mass/Vol] 1.07 mg/dL Normal 0.70-1.30 [facility] Comment on above: Performed By: #### C MP #### [facility] [address] [place] [address] Dr. Karina Del Valle EGFR-AF AUSTRALIAN >60 Normal >=60 [facility] Comment on above: Performed By: #### C MP #### [facility] [address] [place] [address] Dr. Karina Del Valle EGFR-NON AF AUSTRALIAN >60 Normal >=60 [facility] Comment on above: Performed By: #### C MP #### [facility] [address] [place] [address] Dr. Karina Del Valle Globulin (S) [Mass/Vol] 3.7 g/dL Normal [facility] Comment on above: Performed By: #### C MP #### [facility] [address] [place] [address] Dr. Karina Del Valle Glucose [Mass/Vol] 105 mg/dL Normal 74-106 [facility] Comment on above: Performed By: #### C MP #### [facility] [address] [address] [address] Karina Del Valle Potassium [Moles/Vol] 4.0 mmol/L Normal 3.5-5.1 [facility] Comment on above: Performed By: #### C MP #### [facility] [address] [address] [address] Karina Del Valle Protein [Mass/Vol] 7.5 g/dL Normal 6.4-8.2 [facility] Comment on above: Performed By: #### C MP #### [facility] [address] [place] [address] Dr. Karina Del Valle Sodium [Moles/Vol] 144 mmol/L Normal 136-145 [facility] Comment on above: Performed By: #### C MP #### [facility] [address] [address] [address] Karina Del Valle Urea nitrogen [Mass/Vol] 14.0 mg/dL Normal 7.0-18.0 [facility] Comment on above: Performed By: #### C MP #### [facility] [address] [place] [address] Dr. Karina Del Valle Urea nitrogen/Creatinin e [Mass ratio] 13.1 mg/mg Normal [facility] Comment on above: Performed By: #### C MP #### [facility] [address] [place] [address] LUNG CANCER SCREENINGon 0 08-05-2022 CT [...] in 12 months. Electronically authenticated by: KHADIJAH MCCRACKEN Date: 2022-08-05 11:44 Normal [facility] CULTURE URINEon 05-21-2022 CULTURE URINE Culture Observations : MODERATE GROWTH OF MIXED SKIN JUAN. NO POTENTIAL PATHOGENS SEEN. Normal [facility] Comment on above: Performed By: #### P SASC #### [facility] [address] [place] [address] Dr. Karina Del Valle PROF CHEM 8 (BAS METB)on Anion gap [Moles/Vol] 15.0 mmol/L Normal [facility] Comment on above: Performed By: #### P SASC #### [facility] [address] [place] [address] Dr. Karina Del Valle Calcium [Mass/Vol] 9.3 mg/dL Normal 8.5-10.1 [facility] Comment on above: Performed By: #### P SASC #### [facility] [address] [place] [address] Dr. Karina Del Valle Chloride [Moles/Vol] 111 mmol/L Critically high 98-107 [facility] Comment on above: Performed By: #### P SASC #### [facility] [address] [place] [address] Dr. Karina Del Valle CO2 [Moles/Vol] 28.2 mmol/L Normal 21.0-32.0 [facility] Comment on above: Performed By: #### P SASC #### [facility] [address] [place] [address] Dr. Karina Del Valle Creatinine [Mass/Vol] 1.10 mg/dL Normal 0.70-1.30 [facility] Comment on above: Performed By: #### P SASC #### [facility] [address] [address] [address] Karina Del Valle EGFR-AF AUSTRALIAN >60 Normal >=60 [facility] Comment on above: Performed By: #### P SASC #### [facility] [address] [place] [address] Dr. Karina Del Valle EGFR-NON AF AUSTRALIAN >60 Normal >=60 [facility] Comment on above: Performed By: #### P SASC #### [facility] [address] [address] [address] Karina Del Valle Glucose [Mass/Vol] 80 mg/dL Normal 74-106 [facility] Comment on above: Performed By: #### P SASC #### [facility] [address] [place] [address] Dr. Karina Del Valle Potassium [Moles/Vol] 4.2 mmol/L Normal 3.5-5.1 [facility] Comment on above: Performed By: #### P SASC #### [facility] [address] [place] [address] Dr. Karina Del Valle Sodium [Moles/Vol] 150 mmol/L Critically high 136-145 [facility] Comment on above: Performed By: #### P SASC #### [facility] [address] [place] [address] Dr. Karina Del Valle Urea nitrogen [Mass/Vol] 12.0 mg/dL Normal 7.0-18.0 [facility] Comment on above: Performed By: #### P SASC #### [facility] [address] [place] [address] Dr. Karina Del Valle Urea nitrogen/Creatinin e [Mass ratio] 10.9 mg/mg Normal [facility] Comment on above: Performed By: #### P SASC #### [facility] [address] [place] [address] Dr. Karina Del Valle Basic metabolic 2000 panelon 01-10-2022 Anion gap [Moles/Vol] 9 mmol/L Normal 9-18 [facility] Comment on above: Order Comment: Speci men Type: BLOOD SPECIMENOrdering Facility: [facility] Address: [address] [place] [address] Performed By: #### 2 4321-2 ####[facility] LABCLIA [id number] [place] [address] Calcium [Mass/Vol] 9.5 mg/dL Normal 8.5-10.2 [facility] Comment on above: Order Comment: Speci men Type: BLOOD SPECIMENOrdering Facility: [facility] Address: [address] [place] [address] Performed By: #### 2 4321-2 ####[facility] LABCLIA [id number] [place] [address] Chloride [Moles/Vol] 104 mmol/L Normal 97-105 [facility] Comment on above: Order Comment: Speci men Type: BLOOD SPECIMENOrdering Facility: [facility] Address: [address] [place] [address] Performed By: #### 2 4321-2 ####[facility] LABCLIA [id number] [place] [address] CO2 [Moles/Vol] 27 mmol/L Normal 22-30 [facility] Comment on above: Order Comment: Speci men Type: BLOOD SPECIMENOrdering Facility: [facility] Address: [address] [place] [address] Performed By: #### 2 4321-2 ####[facility] LABCLIA [id number] [place] [address] Creatinine [Mass/Vol] 1.02 mg/dL Normal 0.73-1.22 [facility] Comment on above: Order Comment: Speci men Type: BLOOD SPECIMENOrdering Facility: [facility] Address: [address] [place] [address] Performed By: #### 2 4321-2 ####[facility] LABCLIA [id number] [place] [address] ESTIMATED GLOMERULAR FILTRATION RATE 78 mL/min/1.73m??? Normal >=60 [facility] Comment on above: Order Comment: Radha lim Type: BLOOD SPECIMENOrdering Facility: [facility] Address: [address] [place] [address] Result Comment: Daysi mated Glomerular Filtration Rate [...] actual GFR. Performed By: #### 2 4321-2 ####[facility] LABCLIA [id number] [place] [address] Glucose [Mass/Vol] 110 mg/dL High 74-99 [facility] Comment on above: Order Comment: Radha lim Type: BLOOD SPECIMENOrdering Facility: [facility] Address: [address] [place] [address] Result Comment: The [place] Diabetes Association (ADA) provides guidance for cutoff [...] Standards of Medical Care in Diabetes 2016, [place] Diabetes Association. Diabetes Care. 2016.39(Suppl 1). Performed By: #### 2 4321-2 ####[facility] LABCLIA [id number] [place] [address] Potassium [Moles/Vol] 3.9 mmol/L Normal 3.7-5.1 [facility] Comment on above: Order Comment: Speci men Type: BLOOD SPECIMENOrdering Facility: [facility] Address: [address] [place] [address] Performed By: #### 2 4321-2 ####[facility] LABCLIA [id number] [place] [address] Sodium [Moles/Vol] 140 mmol/L Normal 136-144 [facility] Comment on above: Order Comment: Speci men Type: BLOOD SPECIMENOrdering Facility: [facility] Address: [address] [place] [address] Performed By: #### 2 4321-2 ####[facility] LABCLIA [id number] [place] [address] Urea nitrogen [Mass/Vol] 13 mg/dL Normal 9-24 [facility] Comment on above: Order Comment: Speci men Type: BLOOD SPECIMENOrdering Facility: [facility] Address: [address] [place] [address] Performed By: #### 2 4321-2 ####[facility] LABCLIA [id number] [place] [address] CBC panel Auto (Bld)on 01-10 Erythrocyte distribution width (RBC) [Ratio] 14.5 % Normal 11.5-15.0 [facility] Comment on above: Order Comment: Speci men Type: BLOOD SPECIMENOrdering Facility: [facility] Address: [address] [place] [address] Performed By: #### 5 8410-2 ####[facility] LABIA [id number] [place] [address] Hematocrit (Bld) [Volume fraction] 37.4 % Low 39.0-51.0 [facility] Comment on above: Order Comment: Speci men Type: BLOOD SPECIMENOrdering Facility: [facility] Address: [address] [place] [address] Performed By: #### 5 8410-2 ####[facility] LABCLIA [id number] [place] [address] Hemoglobin (Bld) [Mass/Vol] 11.7 g/dL Low 13.0-17.0 [facility] Comment on above: Order Comment: Speci men Type: BLOOD SPECIMENOrdering Facility: [facility] Address: [address] [place] [address] Performed By: #### 5 8410-2 ####[facility] LABCLIA [id number] [place] [address] MCH (RBC) [Entitic mass] 28.4 pg Normal 26.0-34.0 [facility] Comment on above: Order Comment: Speci men Type: BLOOD SPECIMENOrdering Facility: [facility] Address: [address] [place] [address] Performed By: #### 5 8410-2 ####[facility] LABIA [id number] [place] [address] MCHC (RBC) [Mass/Vol] 31.3 g/dL Normal 30.5-36.0 [facility] Comment on above: Order Comment: Speci men Type: BLOOD SPECIMENOrdering Facility: [facility] Address: [address] [place] [address] Performed By: #### 5 8410-2 ####[facility] LABCLIA [id number] [place] [address] MCV (RBC) [Entitic vol] 90.8 fL Normal 80.0-100.0 [facility] Comment on above: Order Comment: Speci men Type: BLOOD SPECIMENOrdering Facility: [facility] Address: [address] [place] [address] Performed By: #### 5 8410-2 ####[facility] LABIA [id number] [place] [address] Nucleated RBC (Bld) [#/Vol] 10*3/uL Normal <0.01 [facility] Comment on above: Order Comment: Speci men Type: BLOOD SPECIMENOrdering Facility: [facility] Address: [address] [place] [address] Performed By: #### 5 8410-2 ####[facility] LABCLIA [id number] [place] [address] Platelet mean volume (Bld) [Entitic vol] 9.3 fL Normal 9.0-12.7 [facility] Comment on above: Order Comment: Speci men Type: BLOOD SPECIMENOrdering Facility: [facility] Address: [address] [place] [address] Performed By: #### 5 8410-2 ####[facility] LABCLIA [id number] [place] [address] Platelets (Bld) [#/Vol] 318 10*3/uL Normal 150-400 [facility] Comment on above: Order Comment: Speci men Type: BLOOD SPECIMENOrdering Facility: [facility] Address: [address] [place] [address] Performed By: #### 5 8410-2 ####[facility] LABCLIA [id number] [place] [address] RBC (Bld) [#/Vol] 4.12 10*6/uL Low 4.20-6.00 [facility] Comment on above: Order Comment: Speci men Type: BLOOD SPECIMENOrdering Facility: [facility] Address: [address] [place] [address] Performed By: #### 5 8410-2 ####[facility] LABCLIA [id number] [place] [address] WBC (Bld) [#/Vol] 7.34 10*3/uL Normal 3.70-11.00 [facility] Comment on above: Order Comment: Speci men Type: BLOOD SPECIMENOrdering Facility: [facility] Address: [address], [place] [address] Performed By: #### 5 8410-2 ####[facility] [id number] [place] [address] CNOVon 01-09-2022 CNOV Office Visit (UROLMN ) ----- RABIAMILAN ([id number]) 1950 M Date Time Provider Department 01/09/22 [...] continued fevers, and instructed to return to [facility] for assessment and treatment. Found to [...] tablet 50 mg daily at bedtime. - [place]-3 Fatty Acids, FISH OIL, (FISH OIL) 360-1,200 [...] (FLONASE) 50 mcg/actuation nasal spray Use 1 [place] in each nostril once daily. No current [...] taking anyth (more content not included)... Normal [facility] CULTURE URINEon 01-03-2022 CULTURE URINE Isolate 1 Klebsiella pneumoniae >100,000 cfu/mL of ORGANISM 1 Klebsiella pneumoniae ANTIBIOTIC M.I.C RX STATUS Ampicillin >=32 R F Ampicillin/Sulbactam 8 S F Piperacillin/Tazobactam <=4 S F Cefazolin <=4 S F Ceftazidime <=1 S F Ceftriaxone <=1 S F Ertapenem <=0.5 S F Imipenem <=0.25 S F Amikacin <=2 S F Gentamicin <=1 S F Tobramycin <=1 S F Ciprofloxacin <=0.25 S F Levofloxacin <=0.12 S F Nitrofurantoin 64 I F Trimethoprim/Sulfamethoxa zole <=20 S F Normal [facility] Comment on above: Performed By: #### P [facility] #### [facility] [address] [address] [address] Karina Del Valle Basic metabolic 2000 panelon 01-02-2022 Anion gap [Moles/Vol] 12 mmol/L Normal 9-18 [facility] Comment on above: Order Comment: Speci men Type: BLOOD SPECIMENOrdering Facility: [facility] [facility] Address: [address] [place], [place] [address] Performed By: #### 2 4321-2 ####[facility] LABCLIA [id number] [place] [address] [place] Calcium [Mass/Vol] 8.4 mg/dL Low 8.5-10.2 [facility] Comment on above: Order Comment: Speci men Type: BLOOD SPECIMENOrdering Facility: [facility] Address: [address] [place], [place] [address] Performed By: #### 2 4321-2 ####[facility] LABCLIA [id number] [place] [address] [place] Chloride [Moles/Vol] 100 mmol/L Normal 97-105 [facility] Comment on above: Order Comment: Speci men Type: BLOOD SPECIMENOrdering Facility: [facility] Address: [address] [place], [place] [address] Performed By: #### 2 4321-2 ####[facility] LABCLIA [id number] [place] [address] [place] CO2 [Moles/Vol] 21 mmol/L Low 22-30 [facility] Comment on above: Order Comment: Speci men Type: BLOOD SPECIMENOrdering Facility: [facility] Address: [address] [place], [place] [address] Performed By: #### 2 4321-2 ####[facility] LABCLIA [id number] [address] STATES OF [facility] Creatinine [Mass/Vol] 1.56 mg/dL High 0.73-1.22 [facility] Comment on above: Order Comment: Radha lim Type: BLOOD SPECIMENOrdering Facility: [facility] Address: [address] [place] [address] Performed By: #### 2 4321-2 ####[facility] LABCLIA [id number] [address] ESTIMATED GLOMERULAR FILTRATION RATE 47 mL/min/1.73m??? Low >=60 [facility] Comment on above: Order Comment: Radha lim Type: BLOOD SPECIMENOrdering Facility: [facility] Address: [address] [place] [address] Result Comment: Daysi mated Glomerular Filtration Rate [...] actual GFR. Performed By: #### 2 4321-2 ####[facility] LABCLIA [id number] [place] [address] [place] Glucose [Mass/Vol] 131 mg/dL High 74-99 [facility] Comment on above: Order Comment: Radha lim Type: BLOOD SPECIMENOrdering Facility: [facility] Address: [address] [place] [address] Result Comment: The [place] [employer] (ADA) provides guidance for cutoff [...] Standards of Medical Care in Diabetes 2016, [place] [employer]. Diabetes Care. 2016.39(Suppl 1). Performed By: #### 2 4321-2 ####[facility] LABCLIA [id number] [place] [address] [place] Potassium [Moles/Vol] 3.8 mmol/L Normal 3.7-5.1 [facility] Comment on above: Order Comment: Speci men Type: BLOOD SPECIMENOrdering Facility: [facility] Address: [address] [place], [place] [address] Performed By: #### 2 4321-2 ####[facility] LABIA [id number] [place] [address] [place] Sodium [Moles/Vol] 133 mmol/L Low 136-144 [facility] Comment on above: Order Comment: Speci men Type: BLOOD SPECIMENOrdering Facility: [facility] Address: [address] [place], [place] [address] Performed By: #### 2 4321-2 ####[facility] LABIA [id number] [place] [address] [place] Urea nitrogen [Mass/Vol] 23 mg/dL Normal 9-24 [facility] Comment on above: Order Comment: Speci men Type: BLOOD SPECIMENOrdering Facility: [facility] Address: [address] Performed By: #### 2 4321-2 ####[facility] LABIA [id number] [place] [address] [place] Anion gap [Moles/Vol] 11 mmol/L Normal 9-18 [facility] Comment on above: Order Comment: Speci men Type: BLOOD SPECIMENOrdering Facility: [facility] Address: [address] Performed By: #### 2 4321-2 ####[facility] LABCLIA [id number] [place] [address] [place] Calcium [Mass/Vol] 8.4 mg/dL Low 8.5-10.2 [facility] Comment on above: Order Comment: Speci men Type: BLOOD SPECIMENOrdering Facility: [facility] Address: [address] [place] [address] Performed By: #### 2 4321-2 ####[facility] LABCLIA [id number] [place] [address] [place] Chloride [Moles/Vol] 100 mmol/L Normal 97-105 [facility] Comment on above: Order Comment: Speci men Type: BLOOD SPECIMENOrdering Facility: [facility] Address: [address] [place] [address] Performed By: #### 2 4321-2 ####[facility] LABCLIA [id number] [place] [address] [place] CO2 [Moles/Vol] 22 mmol/L Normal 22-30 [facility] Comment on above: Order Comment: Speci men Type: BLOOD SPECIMENOrdering Facility: [facility] Address: [address] [place], [place] [address] Performed By: #### 2 4321-2 ####[facility] LABCLIA [id number] [place] [address] [place] Creatinine [Mass/Vol] 1.72 mg/dL High 0.73-1.22 [facility] Comment on above: Order Comment: Speci men Type: BLOOD SPECIMENOrdering Facility: [facility] Address: [address] [place], [place] [address] Performed By: #### 2 4321-2 ####[facility] LABCLIA [id number] [place] [address] [place] ESTIMATED GLOMERULAR FILTRATION RATE 42 mL/min/1.73m??? Low >=60 [facility] Comment on above: Order Comment: Radha lim Type: BLOOD SPECIMENOrdering Facility: [facility] Address: [address] [place] [address] Result Comment: Daysi mated Glomerular Filtration Rate [...] actual GFR. Performed By: #### 2 4321-2 ####[facility] LABIA [id number] [place] [address] [place] Glucose [Mass/Vol] 115 mg/dL High 74-99 [facility] Comment on above: Order Comment: Radha lim Type: BLOOD SPECIMENOrdering Facility: [facility] Address: [address] [place] [address] Result Comment: The [place] Diabetes Association (ADA) provides guidance for cutoff [...] Standards of Medical Care in Diabetes 2016, [place] [employer]. Diabetes Care. 2016.39(Suppl 1). Performed By: #### 2 4321-2 ####[facility] [id number] [place] [address] [place] Potassium [Moles/Vol] 3.8 mmol/L Normal 3.7-5.1 [facility] Comment on above: Order Comment: Radha lim Type: BLOOD SPECIMENOrdering Facility: [facility] Address: [address] [place], [place] [address] Performed By: #### 2 4321-2 ####[facility] LABCLIA [id number] [place] [address] [place] Sodium [Moles/Vol] 133 mmol/L Low 136-144 [facility] Comment on above: Order Comment: Speci men Type: BLOOD SPECIMENOrdering Facility: [facility] Address: [address] [place] [address] Performed By: #### 2 4321-2 ####[facility] LABCLIA [id number] [place] [address] [place] Urea nitrogen [Mass/Vol] 27 mg/dL High 9-24 [facility] Comment on above: Order Comment: Speci men Type: BLOOD SPECIMENOrdering Facility: [facility] Address: [address] [place] [address] Performed By: #### 2 4321-2 ####[facility] LABCLIA [id number] [address] [place] CONSULT PROGon 01-02-2022 CONSULT PROG HNO ID: [id number] Author: David Moise MD Service: Urology Author [...] and willing to go home with jaramillo. PAST MEDICAL HISTORY Diagnosis Date - Arthritis [...] mg tablet 50 mg daily at bedtime. Granger-3 Fatty Acids, FISH OIL, (FISH OIL) 360-1,200 [...] (FLONASE) 50 mcg/actuation nasal spray Use 1 [place] in each nostril once daily. Current Facility-Administered [...] BMI 3 (more content not included)... Normal [facility] ED NOTEon 01-02-2022 ED NOTE HNO ID: [id number] Author: Smitha Steve RN Service: Emergency Medicine [...] fever or hematuria Home with is Normal [facility] ED NOTE HNO ID: [id number] Author: Smitha Steve RN Service: Emergency Medicine Author Type: Registered Nurse Type: ED Notes Filed: 01/02/2022 11:42 AM Note Text: Blood sugar =104. Family at the bedside Normal [facility] ED NOTE HNO ID: [id number] Author: Smitha Steve RN Service: Emergency Medicine Author Type: Registered Nurse Type: ED Notes Filed: 01/02/2022 11:15 AM Note Text: Vitals noted. Temp now 37.7, was 37.9. Pt talking on the phone. Denies pain.. Jaramillo intact and draining well. Normal [facility] ED NOTE HNO ID: [id number] Author: Smitha Steve RN Service: Emergency Medicine Author Type: Registered Nurse Type: ED Notes Filed: 01/02/2022 10:50 AM Note Text: Assumed care of the patient. Report obtained from Ignacia TYLER [facility] ED NOTE HNO ID: [id number] Author: Gabriela Mayfield RN Service: Emergency Medicine Author Type: Registered Nurse Type: ED Notes Filed: 01/02/2022 4:46 AM Note Text: Pt back to bed at this time. Pt updated on POC. No further needs voiced, call light in reach Normal [facility] ED NOTE HNO ID: [id number] Author: Gabriela Mayfield RN Service: Emergency Medicine Author Type: Registered Nurse Type: ED Notes Filed: 01/02/2022 4:38 AM Note Text: Pt ambulated to bathroom with steady gait at this time. Normal [facility] ED PROV NOTEon 01-02-2022 ED PROV NOTE HNO ID: [id number] Author: Celestino Flores APRN.PERICO Service: Emergency Medicine [...] and then left [facility]SH to come to [facility] ED. Spoke with his out patient urology [...] Negative for adenopathy. Does not bruise/bleed easily. Psychiatric/Behavioral: Negative for agitation and confusion. All other [...] PANEL - (more content not included)... Normal [facility] Bacteria Bld Culton 01-02-20 22 Bacteria identified Cx Nom (Bld) CULTURE, BLOOD: No growth 5 days Normal [facility] Comment on above: Performed By: #### 6 00-7 ####[facility] LABCLIA [id number] [place] [address] [place] Bacteria identified Cx Nom (Bld) CULTURE, BLOOD: No growth 5 days Normal [facility] Comment on above: Performed By: #### 6 00-7 ####[facility] LABCLIA [id number] [place] [address] [place] Bacteria Ur Culton 2 Bacteria identified Cx Nom (U) CULTURE, URINE: No growth (<1,000 CFU/ml) Normal [facility] Comment on above: Performed By: #### 6 30-4 ####[facility] LABCLIA [id number] [place] [address] [place] Basic metabolic 2000 panelon 01-01-2022 Anion gap [Moles/Vol] 14 mmol/L Normal 9-18 [facility] Comment on above: Order Comment: Speci men Type: BLOOD SPECIMENOrdering Facility: [facility] Address: [address] [place], [place] [address] Performed By: #### 2 4321-2 ####[facility] LABCLIA [id number] [place] [address] [place] Calcium [Mass/Vol] 8.5 mg/dL Normal 8.5-10.2 [facility] Comment on above: Order Comment: Speci men Type: BLOOD SPECIMENOrdering Facility: [facility] Address: [address] [place], [place] [address] Performed By: #### 2 4321-2 ####[facility] LABCLIA [id number] [place] [address] [place] Chloride [Moles/Vol] 98 mmol/L Normal 97-105 [facility] Comment on above: Order Comment: Speci men Type: BLOOD SPECIMENOrdering Facility: [facility] Address: [address] [place], [place] [address] Performed By: #### 2 4321-2 ####[facility] LABCLIA [id number] [place] [address] [place] CO2 [Moles/Vol] 21 mmol/L Low 22-30 [facility] Comment on above: Order Comment: Speci men Type: BLOOD SPECIMENOrdering Facility: [facility] Address: [address] [place], [place] [address] Performed By: #### 2 4321-2 ####[facility] LABCLIA [id number] [place] [address] [place] Creatinine [Mass/Vol] 1.93 mg/dL High 0.73-1.22 [facility] Comment on above: Order Comment: Speci men Type: BLOOD SPECIMENOrdering Facility: [facility] Address: [address] [place], [place] [address] Performed By: #### 2 4321-2 ####[facility] LABCLIA [id number] [place] [id number] [place] ESTIMATED GLOMERULAR FILTRATION RATE 36 mL/min/1.73m??? Low >=60 [facility] Comment on above: Order Comment: Radha lim Type: BLOOD SPECIMENOrdering Facility: [facility] Address: [address] [place] [address] Result Comment: Daysi mated Glomerular Filtration Rate [...] actual GFR. Performed By: #### 2 4321-2 ####[facility] LABCLIA [id number] [place] [address] [place] Glucose [Mass/Vol] 103 mg/dL High 74-99 [facility] Comment on above: Order Comment: Radha lim Type: BLOOD SPECIMENOrdering Facility: [facility] Address: [address] [place] [address] Result Comment: The [place] Diabetes Association (ADA) provides guidance for cutoff [...] Standards of Medical Care in Diabetes 2016, [place] [employer]. Diabetes Care. 2016.39(Suppl 1). Performed By: #### 2 4321-2 ####[facility] LABCLIA [id number] [place] [address] [place] Potassium [Moles/Vol] 4.0 mmol/L Normal 3.7-5.1 [facility] Comment on above: Order Comment: Speci men Type: BLOOD SPECIMENOrdering Facility: [facility] Address: [address] [place] [address] Performed By: #### 2 4321-2 ####[facility] LABCLIA [id number] [place] [address] [place] Sodium [Moles/Vol] 133 mmol/L Low 136-144 [facility] Comment on above: Order Comment: Speci men Type: BLOOD SPECIMENOrdering Facility: [facility] Address: [address] [place] [address] Performed By: #### 2 4321-2 ####[facility] LABCLIA [id number] [place] [address] [place] Urea nitrogen [Mass/Vol] 30 mg/dL High 9-24 [facility] Comment on above: Order Comment: Speci men Type: BLOOD SPECIMENOrdering Facility: [facility] Address: [address] [place] [address] Performed By: #### 2 4321-2 ####[facility] LABIA [id number] [place] [address] [place] CBC W Auto Differential pane l (Bld)on 01-01-2022 Basophils (Bld) [#/Vol] 10*3/uL Normal <0.11 [facility] Comment on above: Order Comment: Speci men Type: BLOOD SPECIMENOrdering Facility: [facility] Address: [address] [place] [address] Performed By: #### 5 7021-8 ####[facility] LABIA [id number] [address] [place] Basophils/100 WBC (Bld) 0.2 % Normal [facility] Comment on above: Order Comment: Speci men Type: BLOOD SPECIMENOrdering Facility: [facility] Address: [address] [place] [address] Performed By: #### 5 7021-8 ####[facility] LABCLIA [id number] [place] [address] [place] Differential cell count method Nom (Bld) Auto Normal [facility] Comment on above: Order Comment: Speci men Type: BLOOD SPECIMENOrdering Facility: [facility] Address: [address] [place], [place] [address] Performed By: #### 5 7021-8 ####[facility] LABCLIA [id number] [place] [address] [place] Eosinophils (Bld) [#/Vol] 10*3/uL Normal <0.46 [facility] Comment on above: Order Comment: Speci men Type: BLOOD SPECIMENOrdering Facility: [facility] Address: [address] [place], [place] [address] Performed By: #### 5 7021-8 ####[facility] LABIA [id number] [place] [address] [place] Eosinophils/100 WBC (Bld) 0.2 % Normal [facility] Comment on above: Order Comment: Speci men Type: BLOOD SPECIMENOrdering Facility: [facility] Address: [address] [place], [place] [address] Performed By: #### 5 7021-8 ####[facility] LABIA [id number] [place] [address] [place] Erythrocyte distribution width (RBC) [Ratio] 15.1 % High 11.5-15.0 [facility] Comment on above: Order Comment: Speci men Type: BLOOD SPECIMENOrdering Facility: [facility] Address: [address] [place], [place] [address] Performed By: #### 5 7021-8 ####[facility] LABCLIA [id number] [place] [address] [place] Hematocrit (Bld) [Volume fraction] 38.8 % Low 39.0-51.0 [facility] Comment on above: Order Comment: Speci men Type: BLOOD SPECIMENOrdering Facility: [facility] Address: [address] [place] [address] Performed By: #### 5 7021-8 ####[facility] LABIA [id number] [place] [address] [place] Hemoglobin (Bld) [Mass/Vol] 12.5 g/dL Low 13.0-17.0 [facility] Comment on above: Order Comment: Speci men Type: BLOOD SPECIMENOrdering Facility: [facility] Address: [address] [place] [address] Performed By: #### 5 7021-8 ####[facility] LABIA [id number] [address] STATES OF [facility] IMMATURE GRAN % 0.5 % Normal [facility] Comment on above: Order Comment: Speci men Type: BLOOD SPECIMENOrdering Facility: [facility] Address: [address] [place] [address] Performed By: #### 5 7021-8 ####[facility] LABIA [id number] [address] STATES OF [facility] IMMATURE GRAN ABS 0.06 k/uL Normal <0.10 [facility] Comment on above: Order Comment: Speci men Type: BLOOD SPECIMENOrdering Facility: [facility] Address: [address] [place], [place] [address] Performed By: #### 5 7021-8 ####[facility] LABIA [id number] [place] [address] [place] Lymphocytes (Bld) [#/Vol] 0.35 10*3/uL Low 1.00-4.00 [facility] Comment on above: Order Comment: Speci men Type: BLOOD SPECIMENOrdering Facility: [facility] Address: [address] [place], [place] [address] Performed By: #### 5 7021-8 ####[facility] LABIA [id number] [address] STATES [facility] Lymphocytes/100 WBC (Bld) 2.7 % Normal [facility] Comment on above: Order Comment: Speci men Type: BLOOD SPECIMENOrdering Facility: [facility] Address: [address] [place], [place] [address] Performed By: #### 5 7021-8 ####[facility] [id number] [address] [place] MCH (RBC) [Entitic mass] 28.5 pg Normal 26.0-34.0 [facility] Comment on above: Order Comment: Speci men Type: BLOOD SPECIMENOrdering Facility: [facility] Address: [address] [place], [place] [address] Performed By: #### 5 7021-8 ####[facility] [id number] [place] [address] [place] MCHC (RBC) [Mass/Vol] 32.2 g/dL Normal 30.5-36.0 [facility] Comment on above: Order Comment: Speci men Type: BLOOD SPECIMENOrdering Facility: [facility] Address: [address] [place], [place] [address] Performed By: #### 5 7021-8 ####[facility] LABIA [id number] [address] [place] MCV (RBC) [Entitic vol] 88.6 fL Normal 80.0-100.0 [facility] Comment on above: Order Comment: Speci men Type: BLOOD SPECIMENOrdering Facility: [facility] Address: [address] [place], [place] [address] Performed By: #### 5 7021-8 ####[facility] LABIA [id number] [place] [address] [place] Monocytes (Bld) [#/Vol] 1.16 10*3/uL High <0.87 [facility] Comment on above: Order Comment: Speci men Type: BLOOD SPECIMENOrdering Facility: [facility] Address: [address] [place] [address] Performed By: #### 5 7021-8 ####[facility] LABCLIA [id number] [place] [address] [place] Monocytes/100 WBC (Bld) 9.0 % Normal [facility] Comment on above: Order Comment: Speci men Type: BLOOD SPECIMENOrdering Facility: [facility] Address: [address] [place] [address] Performed By: #### 5 7021-8 ####[facility] LABCLIA [id number] [place] [address] [place] Neutrophils (Bld) [#/Vol] 11.34 10*3/uL High 1.45-7.50 [facility] Comment on above: Order Comment: Speci men Type: BLOOD SPECIMENOrdering Facility: [facility] Address: [address] [place], [place] [address] Performed By: #### 5 7021-8 ####[facility] LABCLIA [id number] [place] [address] [place] Neutrophils/100 WBC (Bld) 87.4 % Normal [facility] Comment on above: Order Comment: Speci men Type: BLOOD SPECIMENOrdering Facility: [facility] Address: [address] [place], [place] [address] Performed By: #### 5 7021-8 ####[facility] LABCLIA [id number] [place] [address] [place] Nucleated RBC (Bld) [#/Vol] 10*3/uL Normal <0.01 [facility] Comment on above: Order Comment: Speci men Type: BLOOD SPECIMENOrdering Facility: [facility] Address: [address] [place], [place] [address] Performed By: #### 5 7021-8 ####[facility] LABIA [id number] [place] [address] [place] Nucleated RBC/100 WBC (Bld) [Ratio] 0.0 /100 WBC Normal [facility] Comment on above: Order Comment: Speci men Type: BLOOD SPECIMENOrdering Facility: [facility] Address: [address] [place], [place] [address] Performed By: #### 5 7021-8 ####[facility] LABIA [id number] [place] [address] [place] Platelet mean volume (Bld) [Entitic vol] 10.5 fL Normal 9.0-12.7 [facility] Comment on above: Order Comment: Speci men Type: BLOOD SPECIMENOrdering Facility: [facility] Address: [address] [place], [place] [address] Performed By: #### 5 7021-8 ####[facility] LABIA [id number] [place] [address] [place] Platelets (Bld) [#/Vol] 176 10*3/uL Normal 150-400 [facility] Comment on above: Order Comment: Speci men Type: BLOOD SPECIMENOrdering Facility: [facility] Address: [address] [place], [place] [address] Performed By: #### 5 7021-8 ####[facility] LABIA [id number] [place] [address] [place] RBC (Bld) [#/Vol] 4.38 10*6/uL Normal 4.20-6.00 [facility] Comment on above: Order Comment: Speci men Type: BLOOD SPECIMENOrdering Facility: [facility] Address: [address] [place], [place] [address] Performed By: #### 5 7021-8 ####[facility] LABCLIA [id number] [place] [id number] [place] WBC (Bld) [#/Vol] 12.95 10*3/uL High 3.70-11.00 [facility] Comment on above: Order Comment: Speci men Type: BLOOD SPECIMENOrdering Facility: [facility] Address: [address] [place] [address] Performed By: #### 5 7021-8 ####[facility] LABCLIA [id number] [address] CNPNon 01-01-2022 CNPN Telephone (UROCHAI) ----- MILAN CAMARILLO ([id number]) 1950 M Date Time Provider Department 01/01/22 [...] I recommended that he come to [facility] today. He expressed understanding and agreement [...] Date Reviewed: 12/25/2021 Reviewed by: Vannesa Crump APRN.PICU NURSE - Fully Assessed Reason for Visit: Patient [...] tablet 50 mg daily at bedtime. - Granger-3 Fatty Acids, FISH OIL, (FISH OIL) 360-1,200 [...] (FLONASE) 50 mcg/actuation nasal spray Use 1 [place] in each nostril once daily. Problem List [...] Encounter Status:Closed by RYAN OKEEFE on 01/01/22 [facility] CONSULTon 01-01-2022 CONSULT HNO ID: [id number] Author: Marilee Robison MD Service: Urology Author Type: Resident Type: Consults Filed: 01/01/2022 1:37 PM Note Text: UROLOGY SERVICE CONSULT NOTE PATIENT NAME: Milan Camarillo January 01, 2022 ASSESSMENT AND PLAN Milan Camarillo is a 71 year old male with history of 4cm right renal mass on surveillance, prostate cancer s/p EBRT and brachytherapy (2016), [...] insulin), prostate cancer s/p EBRT and brachytherapy (2017), [...] had to self-cath daily. He presented to [facility] with these symptoms. There they gave [...] vanc and zosyn and given IVF bolus. PAST MEDICAL HISTORY Diagnosis Date - Arthritis [...] mg tablet 50 mg daily at bedtime. Granger-3 Fatty Acids, FISH OIL, (FISH OIL) 360-1,200 mg cap Take 1 capsule by mouth. furosemide (LASIX) 20 mg tablet Take by mouth twice daily. imipramine HCl (TOFRANIL) 50 mg tablet Take by mouth twice daily. rOPINIRole (REQUIP) 0.5 mg tablet Take 0.5 mg by mouth twice daily. terazosin (HYTRIN) 2 mg capsule Take by mouth (more content not included)... Normal [facility] CULTURE BLOODon 01-01-2022 Microscopic examination of blood, culture Culture Observations: NO GROWTH AT 5 DAYS. Normal [facility] Comment on above: Performed By: #### B LDCX2 #### [facility] [address], [place] [address] Dr. Karina Del Valle Microscopic examination of blood, culture Culture Observations: NO GROWTH AT 5 DAYS. [facility] Comment on above: Performed By: #### P SASC #### [facility] [address] [address] [address] Karina Del Valle Comprehensive metabolic 2000 panelon 01-01-2022 Albumin [Mass/Vol] 3.6 g/dL Low 3.9-4.9 [facility] Comment on above: Order Comment: Speci men Type: BLOOD SPECIMENOrdering Facility: [facility] Address: [address] [place] [address] Performed By: #### 1 9123-9, 23944-4 ####[facility] LABCLIA [id number] [place] [address] [place] ALP [Catalytic activity/Vol] 83 U/L Normal 38-113 [facility] Comment on above: Order Comment: Speci men Type: BLOOD SPECIMENOrdering Facility: [facility] Address: [address] [place] [address] Performed By: #### 1 9123-9, 02576-2 ####[facility] LABCLIA [id number] [place] [address] [place] ALT [Catalytic activity/Vol] 12 U/L Normal 10-54 [facility] Comment on above: Order Comment: Speci men Type: BLOOD SPECIMENOrdering Facility: [facility] Address: [address] [place], [place] [address] Performed By: #### 1 9123-9, 76449-1 ####[facility] LABCLIA [id number] [place] [address] [place] Anion gap [Moles/Vol] 17 mmol/L Normal 9-18 [facility] Comment on above: Order Comment: Speci men Type: BLOOD SPECIMENOrdering Facility: [facility] Address: [address] [place], [place] [address] Performed By: #### 1 9123-9, 55009-4 ####[facility] LABCLIA [id number] [place] [address] [place] AST [Catalytic activity/Vol] 16 U/L Normal 14-40 [facility] Comment on above: Order Comment: Speci men Type: BLOOD SPECIMENOrdering Facility: [facility] Address: [address] [place], [place] [address] Performed By: #### 1 9123-9, 66337-8 ####[facility] LABIA [id number] [place] [address] [place] Bilirubin [Mass/Vol] 1.1 mg/dL Normal 0.2-1.3 [facility] Comment on above: Order Comment: Speci men Type: BLOOD SPECIMENOrdering Facility: [facility] Address: [address] [place], [place] [address] Performed By: #### 1 9123-9, 45477-4 ####[facility] LABIA [id number] [place] [address] [place] Calcium [Mass/Vol] 8.8 mg/dL Normal 8.5-10.2 [facility] Comment on above: Order Comment: Speci men Type: BLOOD SPECIMENOrdering Facility: [facility] Address: [address] [place] [address] Performed By: #### 1 9123-9, 74786-1 ####[facility] LABIA [id number] [place] [address] [place] Chloride [Moles/Vol] 96 mmol/L Low 97-105 [facility] Comment on above: Order Comment: Speci men Type: BLOOD SPECIMENOrdering Facility: [facility] Address: [address] [place] [address] Performed By: #### 1 239, ####[facility] LABIA [id number] [place] [address] [place] CO2 [Moles/Vol] 21 mmol/L Low 22-30 [facility] Comment on above: Order Comment: Speci men Type: BLOOD SPECIMENOrdering Facility: [facility] Address: [address] [place] [address] Performed By: #### 1 9, ####[facility] LABIA [id number] [place] [address] [place] Creatinine [Mass/Vol] 2.13 mg/dL High 0.73-1.22 [facility] Comment on above: Order Comment: Speci men Type: BLOOD SPECIMENOrdering Facility: [facility] Address: [address] [place] [address] Performed By: #### 1 239, ####[facility] [id number] [place] [address] [place] ESTIMATED GLOMERULAR FILTRATION RATE 32 mL/min/1.73m??? Low >=60 [facility] Comment on above: Order Comment: Speci men Type: BLOOD SPECIMENOrdering Facility: [facility] Address: [address] [place] [address] Result Comment: Daysi mated Glomerular Filtration Rate [...] actual GFR. Performed By: #### 1 9123-9, ####[facility] LABIA [id number] [place] [address] [place] Glucose [Mass/Vol] 101 mg/dL High 74-99 [facility] Comment on above: Order Comment: Radha lim Type: BLOOD SPECIMENOrdering Facility: [facility] Address: [address] [place], [place] [phone] Result Comment: The [place] Diabetes Association (ADA) provides guidance for cutoff [...] Standards of Medical Care in Diabetes 2016, [place] [employer]. Diabetes Care. 2016.39(Suppl 1). Performed By: #### 1 9123-9, 60983-7 ####[facility] LABCLIA [id number] [place] [address] [place] Potassium [Moles/Vol] 3.9 mmol/L Normal 3.7-5.1 [facility] Comment on above: Order Comment: Radha lim Type: BLOOD SPECIMENOrdering Facility: [facility] Address: [address] [place], [place] [address] Performed By: #### 1 9123-9, ####[facility] LABCLIA [id number] [place] [address] [place] Protein [Mass/Vol] 7.3 g/dL Normal 6.3-8.0 [facility] Comment on above: Order Comment: Radha lim Type: BLOOD SPECIMENOrdering Facility: [facility] Address: [address] [phone] Performed By: #### 1 9123-9, 34383-9 ####[facility] LABCLIA [id number] [place] [address] [place] Sodium [Moles/Vol] 134 mmol/L Low 136-144 [facility] Comment on above: Order Comment: Speci men Type: BLOOD SPECIMENOrdering Facility: [facility] Address: [address] [phone] Performed By: #### 1 9123-9, 13509-5 ####[facility] LABCLIA [id number] [place] [address] [place] Urea nitrogen [Mass/Vol] 33 mg/dL High 9-24 [facility] Comment on above: Order Comment: Speci men Type: BLOOD SPECIMENOrdering Facility: [facility] Address: [address] [address] Performed By: #### 1 9123-9, ####[facility] LABCLIA [id number] [address] [place] Covid-19 PCR ([facility])on 12-21 SARS-CoV-2 (COVID-19) RNA LYNNETTE+probe Ql (Unsp spec) Not detected Normal NOT DETECTED [facility] Comment on above: Result Comment: When [...] for this test is supported by the [place] of Health and Human Service's declaration that [...] used). Performed By: #### C VDTB #### [facility] [address] [place] [address] Dr. Karina Del Valle ED NOTEon 07-12-2022 ED NOTE HNO ID: [id number] Author: Gabriela Mayfield RN Service: Emergency Medicine Author Type: Registered Nurse Type: ED Notes Filed: 01/01/2022 9:31 PM Note Text: Pt ambulated to bathroom with steady gait per pt request. Normal [facility] ED NOTE HNO ID: [id number] Author: Gabriela Mayfield RN Service: Emergency Medicine Author Type: Registered Nurse Type: ED Notes Filed: 01/01/2022 8:46 PM Note Text: Pt provided cold wash cloth and ice pack for comfort at this time. Pt updated on POC. No further needs voiced, call light in reach. Normal [facility] ED NOTE HNO ID: [id number] Author: Perla Jacinto LPN Service: Emergency Medicine Author Type: LICENSED NURSE Type: ED Notes Filed: 01/01/2022 6:09 PM Note Text: Patient resting in bed, monitoring oxygen level and heart rate, noted HR-89, Oxygen level 95% RA at time. No c/o respiratory distress noted or voiced T-102.7 and patient encourage to increase fluids. Tylenol given . RN made aware. Perla Jacinto LPN Normal [facility] ED NOTE HNO ID: [id number] Author: Ignacia Goncalves RN Service: Nursing Author [...] rail up -Call light within reach Normal [facility] ED PROV NOTEon 01-01-2022 ED PROV NOTE HNO ID: [id number] Author: Jose D Penn MD Service: Emergency [...] light-headedness. Negative for weakness, numbness and headaches. Psychiatric/Behavioral: Negative. Physical Exam Vitals [01/01/22 1145] BP Pulse Temp Temp src Resp SpO2 Weight Height 129/65 85 37.7 ?C (99.8 ?F) Tympanic 20 100 % 115.7 kg (255 lb) 1.93 m (6' 4 ) Physical Exam Vitals and nursing note reviewed. Exam conducted with a mercantile agent present. Constitutional: General: He is not in [...] Skin is (more content not included)... Normal [facility] URINE PROFILEon 2 Bilirubin Ql (U) Negative Normal NEGATIVE [facility] Comment on above: Performed By: #### U MICRO, ERUR #### [facility] [address] [address] [address] Karina Del Valle Clarity (U) CLEAR Normal CLEAR [facility] Comment on above: Performed By: #### U MICRO, ERUR #### [facility] [address] [address] [address] Karina Del Valle Color (U) YELLOW Normal YELLOW [facility] Comment on above: Performed By: #### U MICRO, ERUR #### [facility] [address] [place] [address] Dr. Karina Del Valle ERUAHD A micrscopic examina tion will be performed if indicated. Normal [facility] Comment on above: Performed By: #### U MICRO, ERUR #### [facility] [address] [address] [address] Karina Del Valle Glucose Ql (U) Negative Normal NEGATIVE [facility] Comment on above: Performed By: #### U MICRO, ERUR #### [facility] [address] [place] [address] Dr. Karina Del Valle Hemoglobin Ql (U) SMALL Abnormal NEGATIVE [facility] Comment on above: Performed By: #### U MICRO, ERUR #### [facility] [address] [address] [address] Karina Del Valle Ketones Ql (U) Negative Normal NEGATIVE [facility] Comment on above: Performed By: #### U MICRO, ERUR #### [facility] [address] [address] [address] Karina Del Valle LEUKOCYTES LARGE Abnormal NEGATIVE [facility] Comment on above: Performed By: #### U MICRO, ERUR #### [facility] [address] [place] [address] Dr. Karina Del Valle Nitrite Ql (U) Negative Normal NEGATIVE [facility] Comment on above: Performed By: #### U MICRO, ERUR #### [facility] [address] [place] [address] Dr. Karina Del Valle pH (U) 6.0 [pH] Normal 5-9 [facility] Comment on above: Performed By: #### U MICRO, ERUR #### [facility] [address] [place] [address] Dr. Karina Del Valle Protein (U) [Mass/Vol] 100 mg/dL Abnormal NEGATIVE/ TRACE [facility] Comment on above: Performed By: #### U MICRO, ERUR #### [facility] [address] [place] [address] Dr. Karina Del Valle SPEC GRAVITY 1.020 Normal 1.005-<=1.025 [facility] Comment on above: Performed By: #### U MICRO, ERUR #### [facility] [address] [place] [address] Dr. Karina Del Valle UR MICRO IND INDICATED Normal [facility] Comment on above: Performed By: #### U MICRO, ERUR #### [facility] [address] [place] [address] Dr. Karina Del Valle Urobilinogen Qn (U) 1.0 {Yamileth'U}/dL Normal 0.2 - 1.0 [facility] Comment on above: Performed By: #### U MICRO, ERUR #### [facility] [address] [place] [address] Dr. Karina Del Valle LACTATE/LACTIC ACIDon 2021 Lactate [Moles/Vol] 1.9 mmol/L Normal 0.4-1.9 [facility] Comment on above: Performed By: #### L ACT #### [facility] [address] [place] [address] Dr. Karina Del Valle Lactate [Moles/Vol] 2.2 mmol/L Critically high 0.4-1.9 [facility] Comment on above: Performed By: #### P SASC #### [facility] [address] [place] [address] Dr. Karina Del Valle Magnesium SerPl-ncon 01-01 Magnesium [Mass/Vol] 1.9 mg/dL Normal 1.7-2.3 [facility] Comment on above: Order Comment: Speci men Type: BLOOD SPECIMENOrdering Facility: [facility] Address: [address] [phone] Performed By: #### 1 9123-9, 07583-8 ####[facility] LABIA [id number] [place] [address] [place] SARS-CoV-2 RNA Resp Ql LYNNETTE+p robeon 01-01-2022 SARS-CoV-2 (COVID-19) RNA LYNNETTE+probe Ql (Resp) COVID 19 RESULT: SARS-CoV-2 (Agent of COVID-19) Not Detected by RT-PCR or equivalent method. This test has been authorized by FDA under an Emergency Use Authorization (EUA). Normal [facility] Comment on above: Performed By: #### 9 4500-6 ####[facility] LABIA [id number] [place] [address] [place] URINE MICROSCOPIC ONLYon BACTERIA MODERATE Abnormal NONE SEEN [facility] Comment on above: Performed By: #### U MICRO, ERUR #### [facility] [address] [place] [address] Dr. Karina Del Valle Bacteria identified Cx Nom (U) INDICATED Normal [facility] Comment on above: Performed By: #### U MICRO, ERUR #### [facility] [address] [place] [address] Dr. Karina Del Valle CAST SEEN Abnormal NONE SEEN [facility] Comment on above: Performed By: #### U MICRO, ERUR #### [facility] [address] [place] [address] Dr. Karina Del Valle Crystals LM Nom (Urine sed) NONE SEEN Normal NONE SEEN [facility] Comment on above: Performed By: #### U MICRO, ERUR #### [facility] [address] [place] [address] Dr. Karina Del Valle Epithelial cells LM Ql (Urine sed) RARE Normal NONE SEEN /RARE [facility] Comment on above: Performed By: #### U MICRO, ERUR #### [facility] [address] [address] [address] Karina Del Valle MUCOUS NONE SEEN Normal NONE SEEN [facility] Comment on above: Performed By: #### U MICRO, ERUR #### [facility] [address] [address] [address] Karina Del Valle RBC 0-2 Normal 0-2 [facility] Comment on above: Performed By: #### U MICRO, ERUR #### [facility] [address] [address] [address] Karina Del Valle WBC (U) [#/Vol] /uL Abnormal NONE SEEN [facility] Comment on above: Performed By: #### U MICRO, ERUR #### [facility] [address] [place] [address] Dr. Karina Del Valle Urinalysis complete panel (U )on 01-01-2022 Bacteria LM.HPF (Urine sed) [#/Area] Many Abnormal None Seen [facility] Comment on above: Order Comment: Speci men Type: URINE SPECIMENOrdering Facility: [facility] Address: [address] [place] [address] Performed By: #### 2 4356-8 ####[facility] LABCLIA [id number] [place] [address] [place] Bilirubin Ql (U) Negative Normal Negative [facility] Comment on above: Order Comment: Speci men Type: URINE SPECIMENOrdering Facility: [facility] Address: [address] [place] [address] Performed By: #### 2 4356-8 ####[facility] LABCLIA [id number] [place] [address] [place] Clarity (Unsp spec) Turbid Abnormal Clear [facility] Comment on above: Order Comment: Speci men Type: URINE SPECIMENOrdering Facility: [facility] Address: [address] [place], [place] [address] Performed By: #### 2 4356-8 ####[facility] LABCLIA [id number] [place] [address] [place] [facility] Color (U) Justina Abnormal Yellow [facility] Comment on above: Order Comment: Speci men Type: URINE SPECIMENOrdering Facility: [facility] Address: [address] [place], [place] [address] Performed By: #### 2 4356-8 ####[facility] LABCLIA [id number] [address] [place] Glucose Test strip (U) [Mass/Vol] Negative Normal Negative [facility] Comment on above: Order Comment: Speci men Type: URINE SPECIMENOrdering Facility: [facility] Address: [address] [place] [address] Performed By: #### 2 4356-8 ####[facility] LABIA [id number] [place] [address] [place] Hemoglobin Ql (U) 1+ Abnormal Negative [facility] Comment on above: Order Comment: Speci men Type: URINE SPECIMENOrdering Facility: [facility] Address: [address] [place], [place] [address] Performed By: #### 2 4356-8 ####[facility] LABCLIA [id number] [place] [address] [place] Hyaline casts (Urine sed) [#/Area] /[LPF] Abnormal 0 /LPF [facility] Comment on above: Order Comment: Speci men Type: URINE SPECIMENOrdering Facility: [facility] Address: [address] [place], [place] [address] Performed By: #### 2 4356-8 ####[facility] LABCLIA [id number] [address] [place] Ketones Ql (U) Negative Normal Negative [facility] Comment on above: Order Comment: Speci men Type: URINE SPECIMENOrdering Facility: [facility] Address: [address] [place], [place] [address] Performed By: #### 2 4356-8 ####[facility] LABCLIA [id number] [place] [address] [place] Leukocyte esterase Test strip Ql (U) 3+ Abnormal Negative [facility] Comment on above: Order Comment: Speci men Type: URINE SPECIMENOrdering Facility: [facility] Address: [address] [place], [place] [address] Performed By: #### 2 4356-8 ####[facility] LABCLIA [id number] [place] [address] [place] Nitrite Ql (U) Negative Normal Negative [facility] Comment on above: Order Comment: Speci men Type: URINE SPECIMENOrdering Facility: [facility] Address: [address] [place], [place] [address] Performed By: #### 2 4356-8 ####[facility] LABCLIA [id number] [place] [address] [place] pH (U) 5.0 [pH] Normal 5.0-8.0 [facility] Comment on above: Order Comment: Speci men Type: URINE SPECIMENOrdering Facility: [facility] Address: [address] [place], [place] [address] Performed By: #### 2 4356-8 ####[facility] LABCLIA [id number] [place] [address] [place] Protein (U) [Mass/Vol] 2+ Abnormal Negative [facility] Comment on above: Order Comment: Speci men Type: URINE SPECIMENOrdering Facility: [facility] Address: [address] [place], [place] [address] Performed By: #### 2 4356-8 ####[facility] LABCLIA [id number] [place] [address] [place] RBC LM.HPF (Urine sed) [#/Area] 6-10 /HPF Abnormal 0-3 /HPF [facility] Comment on above: Order Comment: Speci men Type: URINE SPECIMENOrdering Facility: [facility] Address: [address] [place] [address] Performed By: #### 2 4356-8 ####[facility] [id number] [place] [address] [place] Specific gravity (U) [Rel density] 1.018 Normal 1.005-1.030 [facility] Comment on above: Order Comment: Speci men Type: URINE SPECIMENOrdering Facility: [facility] Address: [address] [place] [address] Performed By: #### 2 4356-8 ####[facility] [id number] [place] [address] [place] Urobilinogen Ql (U) 2+ Abnormal Negative [facility] Comment on above: Order Comment: Speci men Type: URINE SPECIMENOrdering Facility: [facility] Address: [address] [place] [address] Performed By: #### 2 4356-8 ####[facility] [id number] [place] [address] [place] WBC LM.HPF (Urine sed) [#/Area] /[HPF] Abnormal 0-5 /HPF [facility] Comment on above: Order Comment: Speci men Type: URINE SPECIMENOrdering Facility: [facility] Address: [address] [place] [address] Performed By: #### 2 4356-8 ####[facility] LABIA [id number] [place] [address] [place] XR CHEST 1 [...] SANGEETHA VEGA Date: 2021-12-31 23:08 Normal [facility] CBC W MANUAL DIFFon 01-01-20 22 ATYPICAL LYMPH # Normal [facility] Comment on above: Performed By: #### C BCMAN #### [facility] [address] [place] [address] Dr. Karina Del Valle ATYPICAL LYMPH % Normal [facility] Comment on above: Performed By: #### C BCMAN #### [facility] [address] [place] [address] Dr. Karina Del Valle BAND # 0.1 103/ul Normal 0.0-0.3 [facility] Comment on above: Performed By: #### C BCHENRI #### [facility] [address] [place] [address] Dr. Karina Del Valle BAND % 1 % Normal 0-5 [facility] Comment on above: Performed By: #### C BCMAN #### [facility] [address] [place] [address] Dr. Karina Del Valle BASOM # 0.00 103/ul Normal 0.00-0.10 [facility] Comment on above: Performed By: #### C BCMAN #### [facility] [address] [place] [address] Dr. Karina Del Valle BASOM % 0.0 % Critically low 0.2-2.0 [facility] Comment on above: Performed By: #### C BCMAN #### [facility] [address] [place] [address] Dr. Karina Del Valle BLAST # Normal [facility] Comment on above: Performed By: #### C BCMAN #### [facility] [address] [place] [address] Dr. Karina Del Valle BLAST % Normal [facility] Comment on above: Performed By: #### C RAHUL #### [facility] [address] [place] [address] Dr. Karina Del Valle CORRECTED WBC Normal 4.0-11.0 [facility] Comment on above: Performed By: #### C RAHUL #### [facility] [address] [place] [address] Dr. Karina Del Valle EOS # 0.00 103/ul Normal 0.00-0.70 [facility] Comment on above: Performed By: #### C RAHUL #### [facility] [address] [place] [address] Dr. Karina Del Valle EOS% 0.0 % Critically low 0.9-7.0 [facility] Comment on above: Performed By: #### C RAHUL #### [facility] [address] [place] [address] Dr. Karina Del Valle HCT 37.4 % Critically low 42.0-54.0 [facility] Comment on above: Performed By: #### C RAHUL #### [facility] [address] [place] [address] Dr. Karina Del Valle HGB 12.4 g/dl Critically low 14.0-18.0 [facility] Comment on above: Performed By: #### C RAHUL #### [facility] [address] [place] [address] Dr. Karina Del Valle LYMPHM # 0.83 103/ul Critically low 1.20-3.80 [facility] Comment on above: Performed By: #### C RAHUL #### [facility] [address] [place] [address] Dr. Karina Del Valle LYMPHM% 6.0 % Critically low 20.5-60.0 [facility] Comment on above: Performed By: #### C RAHUL #### [facility] [address] [place] [address] Dr. Karina Del Valle MCH 29.1 pg Normal 25.9-34.0 [facility] Comment on above: Performed By: #### C RAHUL #### [facility] [address] [place] [address] Dr. Karina Del Valle MCHC 33.2 g/dl Normal 29.9-35.2 [facility] Comment on above: Performed By: #### C RAHUL #### [facility] [address] [place] [address] Dr. Karina Del Valle MCV 87.8 fL Normal 80.0-94.0 [facility] Comment on above: Performed By: #### C RAHUL #### [facility] [address] [place] [address] Dr. Karina Del Valle METAMYELOCYTE # Normal [facility] Comment on above: Performed By: #### C RAHUL #### [facility] [address] [place] [address] Dr. Karina Del Valle METAMYELOCYTE % Normal [facility] Comment on above: Performed By: #### C RAHUL #### [facility] [address] [place] [address] Dr. Karina Del Valle MONOM# 0.83 103/ul Critically high 0.30-0.80 [facility] Comment on above: Performed By: #### C RAHUL #### [facility] [address] [place] [address] Dr. Karina Del Valle MONOM% 6.0 % Normal 1.7-12.0 [facility] Comment on above: Performed By: #### Mia KAY #### [facility] [address] [place] [address] Dr. Karina Del Valle MPV 10.6 fL Normal 9.5-13.5 [facility] Comment on above: Performed By: #### C RAHUL #### [facility] [address] [place] [address] Dr. Karina Del Valle MYELOCYTE # Normal [facility] Comment on above: Performed By: #### C RAHUL #### [facility] [address] [place] [address] Dr. Karina Del Valle MYELOCYTE % Normal [facility] Comment on above: Performed By: #### C CLAUDIAMAN #### [facility] [address] [place] [address] Dr. Karina Del Valle NRBC Normal [facility] Comment on above: Performed By: #### Mia KAY #### [facility] [address] [place] [address] Dr. Karina Del Valle PLT 189 103/ul Normal 150-450 [facility] Comment on above: Performed By: #### Mia KAY #### [facility] [address] [place] [address] Dr. Karina Del Valle RBC 4.26 106/ul Critically low 4.70-6.10 [facility] Comment on above: Performed By: ###Angela KAY #### [facility] [address] [place] [address] Dr. Karina Del Valle RDW 15.0 % Normal 11.0-15.0 [facility] Comment on above: Performed By: ###Angela KAY #### [facility] [address] [place] [address] Dr. Karina Del Valle SEG # 12.01 103/ul Critically high 1.40-6.50 [facility] Comment on above: Performed By: ###Angela KAY #### [facility] [address] [place] [address] Dr. Karina Del Valle SEG % 87.0 % Critically high 43.0-75.0 [facility] Comment on above: Performed By: ###Angela KAY #### [facility] [address] [place] [address] Dr. Karina Del Valle WBC 13.8 103/ul Critically high 4.0-11.0 [facility] Comment on above: Performed By: ###Angela KAY #### [facility] [address] [place] [address] Dr. Karina Potts 12-31-2021 [facility] ----- MILAN CAMARILLO ([id number]) 1950 M Date Time Provider Department 12/31/21 RUBÉN CRUZ During your visit today, we recorded the following information about you: Rubén Cruz APRN.CNP 12/31/2021 12:45 PM Signed ----- Message from Sarahy Morris [facility] sent at 12/31/2021 8:47 AM EDT ----- [...] symptoms. Left voicemail, requesting call back at [phone]. KT Chris APRN.CNP 01/01/2022 6:31 PM Addendum ----- Message from [...] Date Reviewed: 12/25/2021 Reviewed by: Vannesa Crump APRN.PICU NURSE - Fully Assessed Reason for Visit: Surgical [...] tablet 50 mg daily at bedtime. - Granger-3 Fatty Acids, FISH OIL, (FISH OIL) 360-1,200 [...] (FLONASE) 50 mcg/actuation nasal spray Use 1 [place] in each nostril once daily. Facility-Administered Medications [...] Status:Closed by RUBÉN CRUZ on 01/01/22 Normal [facility] PROF 14(COMP METB)on 022 Albumin [Mass/Vol] 2.8 g/dL Critically low 3.4-5.0 [facility] Comment on above: Performed By: #### C MP #### [facility] [address] [address] [address] Karina Del Valle Albumin/Globulin [Mass ratio] 0.7 {ratio} Normal [facility] Comment on above: Performed By: #### C MP #### [facility] [address] [address] [address] Karina Del Valle ALP [Catalytic activity/Vol] 77 U/L Normal 46-116 [facility] Comment on above: Performed By: #### C MP #### [facility] [address] [place] [address] Dr. Karina Del Valle ALT [Catalytic activity/Vol] 16 U/L Normal 16-63 [facility] Comment on above: Performed By: #### C MP #### [facility] [address] [place] [address] Dr. Karina Del Valle Anion gap [Moles/Vol] 15.3 mmol/L Normal [facility] Comment on above: Performed By: #### C MP #### [facility] [address] [place] [address] Dr. Karina Del Valle AST [Catalytic activity/Vol] 12 U/L Critically low 15-37 [facility] Comment on above: Performed By: #### C MP #### [facility] [address] [place] [address] Dr. Karina Del Valle Bilirubin [Mass/Vol] 0.9 mg/dL Normal 0.2-1.0 [facility] Comment on above: Performed By: #### C MP #### [facility] [address] [place] [address] Dr. Karina Del Valle Calcium [Mass/Vol] 8.7 mg/dL Normal 8.5-10.1 [facility] Comment on above: Performed By: #### C MP #### [facility] [address] [place] [address] Dr. Karina Del Valle Chloride [Moles/Vol] 100 mmol/L Normal 98-107 [facility] Comment on above: Performed By: #### C MP #### [facility] [address] [address] [address] Karina Del Valle CO2 [Moles/Vol] 20.7 mmol/L Critically low 21.0-32.0 [facility] Comment on above: Performed By: #### C MP #### [facility] [address] [address] [address] Karina Del Valle Creatinine [Mass/Vol] 1.71 mg/dL Critically high 0.70-1.30 [facility] Comment on above: Performed By: #### C MP #### [facility] [address] [address] [address] Karina Del Valle EGFR-AF AUSTRALIAN 48 mL/min/1.73m2 Critically low >=60 [facility] Comment on above: Performed By: #### C MP #### [facility] [address] [address] [address] Karina Del Valle EGFR-NON AF AUSTRALIAN 40 mL/min/1.73m2 Critically low >=60 [facility] Comment on above: Performed By: #### C MP #### [facility] [address] [address] [address] Karina Del Valle Globulin (S) [Mass/Vol] 4.3 g/dL Normal [facility] Comment on above: Performed By: #### C MP #### [facility] [address] [address] [address] Karina Del Valle Glucose [Mass/Vol] 161 mg/dL Critically high 74-106 [facility] Comment on above: Performed By: #### C MP #### [facility] [address] [address] [address] Karina Del Valle Potassium [Moles/Vol] 3.0 mmol/L Critically low 3.5-5.1 [facility] Comment on above: Performed By: #### C MP #### [facility] [address] [address] [address] Karina Del Valle Protein [Mass/Vol] 7.1 g/dL Normal 6.4-8.2 [facility] Comment on above: Performed By: #### C MP #### [facility] [address] [address] [address] Karina Del Valle Sodium [Moles/Vol] 133 mmol/L Critically low 136-145 [facility] Comment on above: Performed By: #### C MP #### [facility] [address] [address] [address] Karina Del Valle Urea nitrogen [Mass/Vol] 26.0 mg/dL Critically high 7.0-18.0 [facility] Comment on above: Performed By: #### C MP #### [facility] [address] [address] [address] Karina Del Valle Urea nitrogen/Creatinin e [Mass ratio] 15.2 mg/mg Normal [facility] Comment on above: Performed By: #### C MP #### [facility] [address] [address] [address] Karina Del Valle CNOVon 12-25-2021 CNOV Office Visit ([facility]OLCC ) ----- MILAN CAMARILLO ([id number]) 1950 M Date Time Provider Department 12/25/21 11:30 AM VANNESA CRUMP UROLCC During your visit today, we recorded the following information about you: Pulse Blood pressure Weight 57/minute 124/61 123 kg Vannesa Crump APRN.PICU NURSE 12/25/2021 11:53 AM Signed REASON FOR VISIT: [...] tablet 50 mg daily at bedtime. - Granger-3 Fatty Acids, FISH OIL, (FISH OIL) 360-1,200 [...] (FLONASE) 50 mcg/actuation nasal spray Use 1 [place] in each nostril once daily. No current [...] to call (more content not included)... Normal [facility] ANES POSTPROC EVALon 022 ANES POSTPROC EVAL HNO ID: [id number] Author: Hugo Gerard MD Service: ? Author Type: Anesthesiologist Type: Anesthesia Postprocedure Evaluation Filed: 12/21/2021 9:21 AM Note Text: POST ANESTHESIA EVALUATION NOTE : 1950 Procedure Summary Date: 12/21/21 Room / Location: [address] Anesthesia Start: 724 Anesthesia Stop: 912 Procedure: TURP COMPLETE (N/A Prostate) Diagnosis: BPH with obstruction/lower urinary tract symptoms Surgeons: Jesus Ram MD Responsible Provider: Hugo Gerard MD Anesthesia Type: general ASA Status: 3 Anesthesia Type: general Airway Type: LMA Last Vitals Vitals Value Taken Time BP 138/64 12/21/21 0915 Temp 12/21/21 0921 Pulse 76 12/21/21 0919 Resp 23 12/21/21 0919 SpO2 98 % 12/21/21 09 Vitals shown include unvalidated device data. Post [...] with this procedure. Documented by Robyn Urbina APRN.AERIAL PHOTOGRAMMETRIST 12/21/2021 1:06 PM EDT SIGNATURE: Hugo Gerard MD PATIENT NAME: Milan Camarillo DATE: December 21, 2021 TIME: 9:21 AM CSN: [id number] Normal [facility] ANES PRE-OPon 12-21-2021 ANES PRE-OP HNO ID: [id number] Author: Hugo Gerard MD Service: ? Author Type: Anesthesiologist Type: Anesthesia Preprocedure Evaluation Filed: 12/21/2021 9:00 AM Note Text: ANESTHESIOLOGY DAY OF SURGERY NOTE : 1950 Procedure Information Anesthesia Start Date/Time: 12/21/21724 Procedure: TURP COMPLETE (N/A Prostate) Location: [address] Surgeons: Jesus Ram MD Estimated body mass [...] and consent discussed: yes. Patient / Responsible Republican agrees to proceed: yes Patient / Surrogate [...] tablet 50 mg daily at bedtime. - Granger-3 Fatty Acids, FISH OIL, (FISH OIL) 360-1,200 [...] (FLONASE) 50 mcg/actuation nasal spray Use 1 [place] in each nostril once daily. - oxybutynin [...] SIGNATURE: Hugo Gerard MD PATIENT NAME: Milan Camarillo DATE: December 21, 2021 TIME: 8:59 AM CSN: [id number] [facility] BRIEF OP NOTon 12-21-2021 BRIEF OP NOT HNO ID: [id number] Author: David Moise MD Service: Urology Author Type: Resident Type: Brief Op Note Filed: 12/21/2021 8:51 AM Note Text: UROLOGY SERVICE BRIEF OPERATIVE NOTE LOG ID: [id number] Surgery/Procedure Date: 12/21/2021 Incision/Procedure Start Time: 8:07 AM Incision Close/Procedure End Time: Patient Age: [age] year old Surgeon(s)/Proceduralist( s) and Inclinometer Tester(s): Surgeon(s) and Role: * Jesus Ram MD [...] SIGNATURE: David Moise MD PATIENT NAME: Milan Camarillo DATE: December 21, 2021 TIME: 8:49 AM PAGER/CONTACT #: [facility] OPERATIVE NOon 12-21-2021 OPERATIVE NO HNO ID: [id number] Author: Jesus Ram MD Service: Urology Author Type: Physician Type: Operative Report Filed: 12/21/2021 12:58 PM Note Text: [facility] - Operative Report [id number] [address] [place] RABIAMIL[place] : 1950 AGE: 71. SEX: M PATIENT TYPE: A [facility] [place] LOCATION: [id number] ATTENDING PHYSICIAN: Jesus Ram M.D. CSN NUMBER: [id number] DATE OF SURGERY/PROCEDURE: 12/21/2021 INCISION/PROCEDURE START TIME: [...] for prostate cancer. SURGEON: Jesus Ram M.D. PLUMBER HELPER: Dr. David Moise. SURGERY/PROCEDURE: Cystoscopy with transurethral [...] and the few brachytherapy seeds using the Junie evacuator. At the conclusion, we confirmed that there were no further chips within the bladder and the ureteral orifices were intact. We inserted a 20-German soft silicone catheter and placed 20 mL [...] ACCIDENTAL PUNCTURES (more content not included)... Normal [facility] SURGICAL PATHOLOGYon 022 CASE REPORT Normal [facility] Comment on above: Order Comment: Speci men Type: TISSUE SPECIMENOrdering Facility: [facility] Address: [address] [place] [address] Result Comment: Surg [facility] Pathology Report Case: [id number] Authorizing Provider: Jesus Ram MD Collected: 12/21/2021 08:47 AM Ordering Location: [address] [place] [address] Received: 12/21/2021 09:43 AM Pathologist: Sim Valdez MD Specimen: PROSTATE TISSUE (CHIPS), h/o radiation, for prostate cancer Performed By: #### S ####[facility] [id number] [place] [address] [place] FINAL DIAGNOSIS Normal [facility] Comment on above: Order Comment: Speci men Type: TISSUE SPECIMENOrdering Facility: [facility] Address: [address] [place] [address] Result Comment: Pros [place], transurethral resection: -Prostate tissue with benign prostatic hyperplasia and radiation therapy effect. -Small focus of atypical glands with radiation therapy effect. Performed By: #### S ####[facility] [id number] [address] [place] FINAL PERFORMING LAB Normal [facility] Comment on above: Order Comment: Speci men Type: TISSUE SPECIMENOrdering Facility: [facility] Address: [address] [place], [place] [id number] Result Comment: Diag nostic interpretation performed at [facility], [address] [place] [address] CLIA# [id number] Truck Washer: Marcos Masters M.D. Performed By: #### S ####[facility] [id number] [place] [address] [place] GROSS DESCRIPTION Normal [facility] Comment on above: Order Comment: Speci men Type: TISSUE SPECIMENOrdering Facility: [facility] Address: [address] [place], [place] [address] Result Comment: A. P ROSTATE TISSUE (CHIPS). [...] 2021 12:02 PM Gross examination performed at [facility], [address] [place] [address] Performed By: #### S ####[facility] LABIA [id number] [place] [address] [place] SARS-CoV-2 RNA Resp Ql LYNNETTE+p robeon 12-19-2021 SARS-CoV-2 (COVID-19) RNA LYNNETTE+probe Ql (Resp) COVID 19 RESULT: SARS-CoV-2 (Agent of COVID-19) Not Detected by RT-PCR or equivalent method. This test was developed and its performance characteristics determined by [facility] [place] [address] [place]. This test has been authorized by FDA under an Emergency Use Authorization (EUA). This test has been validated in accordance with the FDA's Guidance Document Policy for Diagnostics Testing in Laboratories Certified to Perform High Complexity Testing under CLIA prior to Emergency use Authorization for Coronavirus Disease 2019 during the Public Health Emergency issued on August 21, 2019. Test performed by [facility], [facility] [place] [address] [place], [address] [place] [address]. Normal [facility] Comment on above: Performed By: #### 9 4500-6 ####[facility]CLIA [id number] [place] [address] [place] Bacteria Ur Culton 2 Bacteria identified Cx Nom (U) CULTURE, URINE: No growth (<1,000 CFU/ml) Normal [facility] Comment on above: Performed By: #### 6 30-4 ####[facility]CL[facility] [id number] [address] [place] CBC panel Auto (Bld)on 12-12 Erythrocyte distribution width (RBC) [Ratio] 14.3 % Normal 11.5-15.0 [facility] Comment on above: Order Comment: Speci men Type: BLOOD SPECIMENOrdering Facility: [facility] Address: [address] [place] [address] Performed By: #### 5 8410-2 ####[facility] [id number] [address] [place] Hematocrit (Bld) [Volume fraction] 41.4 % Normal 39.0-51.0 [facility] Comment on above: Order Comment: Speci men Type: BLOOD SPECIMENOrdering Facility: [facility] Address: [address] [place] [address] Performed By: #### 5 8410-2 ####[facility] [id number] [address] [place] Hemoglobin (Bld) [Mass/Vol] 13.1 g/dL Normal 13.0-17.0 [facility] Comment on above: Order Comment: Speci men Type: BLOOD SPECIMENOrdering Facility: [facility] Address: [address] [place] [address] Performed By: #### 5 8410-2 ####[facility] LABIA [id number] [address] [place] MCH (RBC) [Entitic mass] 28.8 pg Normal 26.0-34.0 [facility] Comment on above: Order Comment: Speci men Type: BLOOD SPECIMENOrdering Facility: [facility] Address: [address] [place] [address] Performed By: #### 5 8410-2 ####[facility] LABIA [id number] [address] [id number] [address] [place] MCHC (RBC) [Mass/Vol] 31.6 g/dL Normal 30.5-36.0 [facility] Comment on above: Order Comment: Speci men Type: BLOOD SPECIMENOrdering Facility: [facility] Address: [address] [place], [place] [id number] Performed By: #### 5 8410-2 ####[facility] LABCLIA [id number] [place] [address] [place] MCV (RBC) [Entitic vol] 91.0 fL Normal 80.0-100.0 [facility] Comment on above: Order Comment: Speci men Type: BLOOD SPECIMENOrdering Facility: [facility] Address: [address] [place], [place] [id number] Performed By: #### 5 8410-2 ####[facility] LABIA [id number] [address] [place] Nucleated RBC (Bld) [#/Vol] 10*3/uL Normal <0.01 [facility] Comment on above: Order Comment: Speci men Type: BLOOD SPECIMENOrdering Facility: [facility] Address: [address] [place], [place] [id number] Performed By: #### 5 8410-2 ####[facility] LABIA [id number] [place] [address] [place] Platelet mean volume (Bld) [Entitic vol] 10.5 fL Normal 9.0-12.7 [facility] Comment on above: Order Comment: Speci men Type: BLOOD SPECIMENOrdering Facility: [facility] Address: [address] [place], [place] [id number] Performed By: #### 5 8410-2 ####[facility] LABCLIA [id number] [place] [address] [place] Platelets (Bld) [#/Vol] 245 10*3/uL Normal 150-400 [facility] Comment on above: Order Comment: Speci men Type: BLOOD SPECIMENOrdering Facility: [facility] Address: [address] [place] [address] Performed By: #### 5 8410-2 ####[facility] LABCLIA [id number] [place] [address] [place] RBC (Bld) [#/Vol] 4.55 10*6/uL Normal 4.20-6.00 [facility] Comment on above: Order Comment: Speci men Type: BLOOD SPECIMENOrdering Facility: [facility] Address: [address] [place] [address] Performed By: #### 5 8410-2 ####[facility]CLIA [id number] [address] [place] WBC (Bld) [#/Vol] 5.83 10*3/uL Normal 3.70-11.00 [facility] Comment on above: Order Comment: Speci men Type: BLOOD SPECIMENOrdering Facility: [facility] Address: [address] [place] [address] Performed By: #### 5 8410-2 ####[facility] LABCLIA [id number] [place] [address] [place] Erythrocyte distribution width (RBC) [Ratio] 14.3 % 11.5 - 15.0 % [facility] Hematocrit (Bld) [Volume fraction] 41.4 % 39.0 - 51.0 % [facility] Hemoglobin (Bld) [Mass/Vol] 13.1 g/dL 13.0 - 17.0 g/dL [facility] MCH (RBC) [Entitic mass] 28.8 pg 26.0 - 34.0 pg [facility] MCHC (RBC) [Mass/Vol] 31.6 g/dL 30.5 - 36.0 g/dL [facility] MCV (RBC) [Entitic vol] 91.0 fL 80.0 - 100.0 fL [facility] Nucleated RBC (Bld) [#/Vol] 10*3/uL <0.01 k/uL [facility] Platelet mean volume (Bld) [Entitic vol] 10.5 fL 9.0 - 12.7 fL [facility] Platelets (Bld) [#/Vol] 245 10*3/uL 150 - 400 k/uL [facility] RBC (Bld) [#/Vol] 4.55 10*6/uL 4.20 - 6.00 m/uL [facility] WBC (Bld) [#/Vol] 5.83 10*3/uL 3.70 - 11. 00 k/uL [facility] CNOVon 12-12-2021 CNOV Office Visit (UROLMN ) ----- MILAN CAMARILLO Bennie ([id number]) 1950 M Date Time Provider Department 12/12/21 2:20 PM MARCY DONAHUE During your visit today, we recorded the following information about you: Pulse Blood pressure Weight 52/minute 126/68 123.1 kg Marcy Donahue APRN.PICU NURSE 12/12/2021 6:30 PM Signed UROLOGY SURGICAL HANDP SERVICE DATE: 12/12/2021 SERVICE TIME: 2:25 PM REFERRING PROVIDER: Jesus Ram [address] [place] [address] PCP: Catracho Jiménez MD GENDER: SUBJECTIVE CHIEF [...] hearing. Cardiovascular: No history of angina, CHF, [place], cardiac surgery of stents. Positive: Hypertension- on [...] on Rx Neurologic: No history of TIA's, [employer] tumor, impaired sensorium, hemiplegia or paraplegia No [...] Date Value (more content not included)... Normal [facility] Comprehensive metabolic 2000 panelon 12-12-2021 Albumin [Mass/Vol] 4.2 g/dL Normal 3.9-4.9 [facility] Comment on above: Order Comment: Radha lim Type: BLOOD SPECIMENOrdering Facility: [facility] Address: [address] [place], [place] [id number] Performed By: #### 2 4323-8 ####[facility] LABCLIA [id number] [place] [address] [place] ALP [Catalytic activity/Vol] 92 U/L Normal 38-113 [facility] Comment on above: Order Comment: Speci men Type: BLOOD SPECIMENOrdering Facility: [facility] Address: [address] Performed By: #### 2 4323-8 ####[facility] LABCLIA [id number] [address] [place] ALT [Catalytic activity/Vol] 20 U/L Normal 10-54 [facility] Comment on above: Order Comment: Speci men Type: BLOOD SPECIMENOrdering Facility: [facility] Address: [address] Performed By: #### 2 4323-8 ####[facility] LABCLIA [id number] [place] [address] [place] Anion gap [Moles/Vol] 12 mmol/L Normal 9-18 [facility] Comment on above: Order Comment: Speci men Type: BLOOD SPECIMENOrdering Facility: [facility] Address: [address] [place], [place] [address] Performed By: #### 2 4323-8 ####[facility] LABCLIA [id number] [address] [place] AST [Catalytic activity/Vol] 19 U/L Normal 14-40 [facility] Comment on above: Order Comment: Speci men Type: BLOOD SPECIMENOrdering Facility: [facility] Address: [address] Performed By: #### 2 4323-8 ####[facility] LABCLIA [id number] [place] [address] [place] Bilirubin [Mass/Vol] 0.3 mg/dL Normal 0.2-1.3 [facility] Comment on above: Order Comment: Speci men Type: BLOOD SPECIMENOrdering Facility: [facility] Address: [address] [place], [place] [address] Performed By: #### 2 4323-8 ####[facility] LABCLIA [id number] [place] [address] [place] Calcium [Mass/Vol] 9.4 mg/dL Normal 8.5-10.2 [facility] Comment on above: Order Comment: Speci men Type: BLOOD SPECIMENOrdering Facility: [facility] Address: [address] [place] [address] Performed By: #### 2 4323-8 ####[facility] LABCLIA [id number] [place] [address] [place] Chloride [Moles/Vol] 104 mmol/L Normal 97-105 [facility] Comment on above: Order Comment: Speci men Type: BLOOD SPECIMENOrdering Facility: [facility] Address: [address] [place] [address] Performed By: #### 2 4323-8 ####[facility] LABCLIA [id number] [place] [address] [place] CO2 [Moles/Vol] 26 mmol/L Normal 22-30 [facility] Comment on above: Order Comment: Speci men Type: BLOOD SPECIMENOrdering Facility: [facility] Address: [address] [place], [place] [address] Performed By: #### 2 4323-8 ####[facility] LABCLIA [id number] [place] [address] [place] Creatinine [Mass/Vol] 0.95 mg/dL Normal 0.73-1.22 [facility] Comment on above: Order Comment: Speci men Type: BLOOD SPECIMENOrdering Facility: [facility] Address: [address] [place], [place] [address] Performed By: #### 2 4323-8 ####[facility] LABCLIA [id number] [place] [address] [place] ESTIMATED GLOMERULAR FILTRATION RATE 85 mL/min/1.73m??? Normal >=60 [facility] Comment on above: Order Comment: Radha lim Type: BLOOD SPECIMENOrdering Facility: [facility] Address: [address] [id number] Result Comment: Daysi mated Glomerular Filtration Rate [...] actual GFR. Performed By: #### 2 4323-8 ####[facility] LABCLIA [id number] [place] [address] [place] Glucose [Mass/Vol] 97 mg/dL Normal 74-99 [facility] Comment on above: Order Comment: Radha lim Type: BLOOD SPECIMENOrdering Facility: [facility] Address: [address] [place] [address] Result Comment: The [place] Diabetes Association (ADA) provides guidance for cutoff [...] Standards of Medical Care in Diabetes 2016, [place] [employer]. Diabetes Care. 2016.39(Suppl 1). Performed By: #### 2 4323-8 ####[facility] LABCLIA [id number] [place] [address] [place] Potassium [Moles/Vol] 4.5 mmol/L Normal 3.7-5.1 [facility] Comment on above: Order Comment: Rdaha lim Type: BLOOD SPECIMENOrdering Facility: [facility] Address: [address] [id number] Performed By: #### 2 4323-8 ####[facility] LABCLIA [id number] [place] [address] [place] Protein [Mass/Vol] 7.2 g/dL Normal 6.3-8.0 [facility] Comment on above: Order Comment: Speci men Type: BLOOD SPECIMENOrdering Facility: [facility] Address: [address] [place], [place] [address] Performed By: #### 2 4323-8 ####[facility] LABCLIA [id number] [place] [address] [place] Sodium [Moles/Vol] 142 mmol/L Normal 136-144 [facility] Comment on above: Order Comment: Speci men Type: BLOOD SPECIMENOrdering Facility: [facility] Address: [address] [place] [address] Performed By: #### 2 4323-8 ####[facility] LABCLIA [id number] [address] [place] Urea nitrogen [Mass/Vol] 10 mg/dL Normal 9-24 [facility] Comment on above: Order Comment: Speci men Type: BLOOD SPECIMENOrdering Facility: [facility] Address: [address] [place], [place] [address] Performed By: #### 2 4323-8 ####[facility] LABCLIA [id number] [address] [place] TYPE AND SCREEN,30 DAYon ABO O Normal [facility] Comment on above: Order Comment: Speci men Type: BLOOD SPECIMENOrdering Facility: [facility] Address: [address] [place] [address] Performed By: #### T SCR30 ####[facility] BLOOD BANKCLIA [id number] [place] [address] [place] HISTORICAL AB SCR STATUS Negative Normal [facility] Comment on above: Order Comment: Speci men Type: BLOOD SPECIMENOrdering Facility: [facility] Address: [address] [place] [address] Performed By: #### T SCR30 ####[facility] BLOOD BANKCLIA [id number] [address] OF [facility] Rh Nom (Bld) Positive Normal [facility] Comment on above: Order Comment: Speci men Type: BLOOD SPECIMENOrdering Facility: [facility] Address: [address] [place] [address] Performed By: #### T SCR30 ####[facility] BLOOD BANKIA [id number] [address] [place] URINALYSIS, REFLEX MICROSCOP ICon 12-12-2021 Bilirubin Ql (U) Negative Normal Negative [facility] Comment on above: Order Comment: Speci men Type: URINE SPECIMENOrdering Facility: [facility] Address: [address] [place], [place] [address] Performed By: #### L [id number] ####[facility] Q7CLIA [id number] [address] [place] Clarity (Unsp spec) Clear Normal Clear [facility] Comment on above: Order Comment: Speci men Type: URINE SPECIMENOrdering Facility: [facility] Address: [address] [place] [address] Performed By: #### L [id number] ####[facility] Q7CLIA [id number] [address] [place] Color (U) Light Yellow Normal Yellow [facility] Comment on above: Order Comment: Speci men Type: URINE SPECIMENOrdering Facility: [facility] Address: [address] [place] [address] Performed By: #### L [id number] ####[facility] Q7CLIA [id number] [place] [address] [place] Glucose Test strip (U) [Mass/Vol] Negative Normal Negative [facility] Comment on above: Order Comment: Speci men Type: URINE SPECIMENOrdering Facility: [facility] Address: [address] [place] [address] Performed By: #### L [id number] ####[facility] Q7CLIA [id number] [address] OF [facility] Hemoglobin Ql (U) Negative Normal Negative [facility] Comment on above: Order Comment: Speci men Type: URINE SPECIMENOrdering Facility: [facility] Address: [address] [place], [place] [address] Performed By: #### L [id number] ####[facility] Q7CLIA [id number] [address] OF [facility] Ketones Ql (U) Negative Normal Negative [facility] Comment on above: Order Comment: Speci men Type: URINE SPECIMENOrdering Facility: [facility] Address: [address] [place] [address] Performed By: #### L [id number] ####[facility] Q7CLIA [id number] [address] Leukocyte esterase Test strip Ql (U) Negative Normal Negative [facility] Comment on above: Order Comment: Speci men Type: URINE SPECIMENOrdering Facility: [facility] Address: [address] [place] [address] Performed By: #### L [id number] ####[facility] Q7CLIA [id number] [place] [address] [place] Nitrite Ql (U) Negative Normal Negative [facility] Comment on above: Order Comment: Speci men Type: URINE SPECIMENOrdering Facility: [facility] Address: [address] [place] [address] Performed By: #### L [id number] ####[facility] Q7CLIA [id number] [place] [address] [place] pH (U) 6.0 [pH] Normal 5.0-8.0 [facility] Comment on above: Order Comment: Speci men Type: URINE SPECIMENOrdering Facility: [facility] Address: [address] [place] [address] Performed By: #### L [id number] ####[facility] Q7CLIA [id number] [place] [address] [place] Protein (U) [Mass/Vol] Negative Normal Negative [facility] Comment on above: Order Comment: Speci men Type: URINE SPECIMENOrdering Facility: [facility] Address: [address] [place] [address] Performed By: #### L [id number] ####[facility] Q7CLIA [id number] [address] [place] Specific gravity (U) [Rel density] 1.006 Normal 1.005-1.030 [facility] Comment on above: Order Comment: Speci men Type: URINE SPECIMENOrdering Facility: [facility] Address: [address] [place] [address] Performed By: #### L [id number] ####[facility] Q7CLIA [id number] [place] [address] [place] Urobilinogen Ql (U) Negative Normal Negative [facility] Comment on above: Order Comment: Speci men Type: URINE SPECIMENOrdering Facility: [facility] Address: [address] [place] [address] Performed By: #### L [id number] ####[facility] Q7CLIA [id number] [place] [address] [place] Bilirubin Ql (U) Negative Negative [facility] Clarity (Unsp spec) Clear Clear [facility] Color (U) Light Yellow Yellow [facility] Glucose Test strip (U) [Mass/Vol] Negative Negative [facility] Hemoglobin Ql (U) Negative Negative [facility] Ketones Ql (U) Negative Negative [facility] Leukocyte esterase Test strip Ql (U) Negative Negative [facility] Nitrite Ql (U) Negative Negative [facility] pH (U) 6.0 [pH] 5.0 - 8.0 [facility] Protein (U) [Mass/Vol] Negative Negative [facility] Specific gravity (U) [Rel density] 1.006 1.005 - 1.030 [facility] Urobilinogen Ql (U) Negative Negative [facility] SARS-CoV-2 RNA Resp Ql LYNNETTE+p robevalentina 10-27-2021 SARS-CoV-2 (COVID-19) RNA LYNNETTE+probe Ql (Resp) COVID 19 RESULT: SARS-CoV-2 (Agent of COVID-19) Not Detected by RT-PCR or equivalent method. This test was developed and its performance characteristics determined by [facility]'s [facility] [place]. This test has been authorized by FDA under an Emergency Use Authorization (EUA). This test has been validated in accordance with the FDA's Guidance Document Policy for Diagnostics Testing in Laboratories Certified to Perform High Complexity Testing under CLIA prior to Emergency use Authorization for Coronavirus Disease 2019 during the Public Health Emergency issued on August 21, 2019. Test performed by [facility], [facility] [place] [address] [place], [address] [place] [address]. Normal [facility] Comment on above: Performed By: #### 9 4500-6 ####[facility] LABCLIA [id number] [address] [place] CNPKirstin 10-25-2021 PERICON Telephone (URONATALIEN) ----- MILAN CAMARILLO ([id number]) 1950 M Date Time Provider Department 10/25/21 RUBÉN CRUZ During your visit today, we recorded the following information about you: Rubén Cruz APRN.PERICO 10/25/2021 3:16 PM Signed ----- Message from Sarahy Morris Adm sent at 10/25/2021 10:13 AM EDT ----- Regarding: New Medication Contact: Patient is scheduled with [facility] for surgery on 10/30. He just started on Icamoxclav (abx for an eye infection) Is he ok to take that? Rubén Cruz APRN.PERICO 10/25/2021 3:26 PM Signed Called Milan Camarillo. [...] in. Advised that he will go to [facility], which is [place] of [facility] [address] and has its own parking garage. Encouraged him to call back if he has other questions before 10/30/2021. Rubén Cruz APRN.PICU NURSE Allergies As of Date: 10/25/2021 Noted Allergy Reaction GLUCOSAMINE 10/10/2017 10 - Anaphylaxis 16 - Unknown IV DYE (IODINATED CONTRAST MEDIA) 05/22/2016 4 - Hives SHELLFISH CONTAINING PRODUCTS 05/22/2016 4 - Hives NIACIN 05/22/2016 4 - Hives 2 - Rash Date Reviewed: 10/23/2021 Reviewed by: Suri Whatley APRN.PICU NURSE - Fully Assessed Reason for Visit: Patient Question [2807] Prescriptions as of 10/25/2021 - doxycycline hyclate [...] tablet 50 mg daily at bedtime. - Granger-3 Fatty Acids, FISH OIL, (FISH OIL) 360-1,200 [...] (FLONASE) 50 mcg/actuation nasal spray Use 1 [place] in each nostril once daily. Problem List [...] Encounter Status:Closed by RUBÉN CRUZ on 10/25/21 Normal [facility] HISTORY PHYSICALon HISTORY PHYSICAL HNO ID: [id number] Author: Suri Whatley APRN.PICU NURSE Service: ? Author Type: Nurse Practitioner Type: [...] fibrillation, CAD, chest pain, CHF, DVT/PE, recent DE and murmur/valvular heart disease. GI: Positive for: [...] 50 mg daily at bedtime. Taking Yes Granger-3 Fatty Acids, FISH OIL, (FISH OIL) 360-1,200 [...] at bedtime. (more content not included)... Normal [facility] Bacteria Ur Culton 2 Bacteria identified Cx Nom (U) CULTURE, URINE: Normal urogenital juan: ORGANISM ID: 1 >=100,000 CFU/ml Staphylococcus epidermidis No further workup Normal [facility] Comment on above: Performed By: #### 6 30-4 ####[facility] LABCLIA [id number] [address] OF [facility] CBC panel Auto (Bld)on 10-22 Erythrocyte distribution width (RBC) [Ratio] 14.4 % Normal 11.5-15.0 [facility] Comment on above: Order Comment: Speci men Type: BLOOD SPECIMENOrdering Facility: [facility] Address: [address] [place] [address] Performed By: #### 5 8410-2 ####[facility] LABCLIA [id number] [place] [address] Hematocrit (Bld) [Volume fraction] 41.3 % Normal 39.0-51.0 [facility] Comment on above: Order Comment: Speci men Type: BLOOD SPECIMENOrdering Facility: [facility] Address: [address] [place] [address] Performed By: #### 5 8410-2 ####[facility] LABCLIA [id number] [place] [address] Hemoglobin (Bld) [Mass/Vol] 13.4 g/dL Normal 13.0-17.0 [facility] Comment on above: Order Comment: Speci men Type: BLOOD SPECIMENOrdering Facility: [facility] Address: [address] [place] [address] Performed By: #### 5 8410-2 ####[facility] LABCLIA [id number] [place] [address] MCH (RBC) [Entitic mass] 29.0 pg Normal 26.0-34.0 [facility] Comment on above: Order Comment: Speci men Type: BLOOD SPECIMENOrdering Facility: [facility] Address: [address] [place] [address] Performed By: #### 5 8410-2 ####[facility] LABCLIA [id number] [place] [address] MCHC (RBC) [Mass/Vol] 32.4 g/dL Normal 30.5-36.0 [facility] Comment on above: Order Comment: Speci men Type: BLOOD SPECIMENOrdering Facility: [facility] Address: [address] [place] [address] Performed By: #### 5 8410-2 ####[facility] LABCLIA [id number] [place] [address] MCV (RBC) [Entitic vol] 89.4 fL Normal 80.0-100.0 [facility] Comment on above: Order Comment: Speci men Type: BLOOD SPECIMENOrdering Facility: [facility] Address: [address] [place] [address] Performed By: #### 5 8410-2 ####[facility] LABIA [id number] [place] [address] Nucleated RBC (Bld) [#/Vol] 10*3/uL Normal <0.01 [facility] Comment on above: Order Comment: Speci men Type: BLOOD SPECIMENOrdering Facility: [facility] Address: [address] [place] [address] Performed By: #### 5 8410-2 ####[facility] LABCLIA [id number] [place] [address] Platelet mean volume (Bld) [Entitic vol] 10.1 fL Normal 9.0-12.7 [facility] Comment on above: Order Comment: Speci men Type: BLOOD SPECIMENOrdering Facility: [facility] Address: [address] [place] [address] Performed By: #### 5 8410-2 ####[facility] LABCLIA [id number] [place] [address] Platelets (Bld) [#/Vol] 207 10*3/uL Normal 150-400 [facility] Comment on above: Order Comment: Speci men Type: BLOOD SPECIMENOrdering Facility: [facility] Address: [address] [place] [address] Performed By: #### 5 8410-2 ####[facility] LABCLIA [id number] [place] [address] RBC (Bld) [#/Vol] 4.62 10*6/uL Normal 4.20-6.00 [facility] Comment on above: Order Comment: Speci men Type: BLOOD SPECIMENOrdering Facility: [facility] Address: [address] [place] [address] Performed By: #### 5 8410-2 ####[facility] LABCLIA [id number] [place] [address] WBC (Bld) [#/Vol] 6.06 10*3/uL Normal 3.70-11.00 [facility] Comment on above: Order Comment: Speci men Type: BLOOD SPECIMENOrdering Facility: [facility] Address: [address] [place] [address] Performed By: #### 5 8410-2 ####[facility] LABCLIA [id number] [place] [address] Comprehensive metabolic 2000 panelon 10-22-2021 Albumin [Mass/Vol] 4.6 g/dL Normal 3.9-4.9 [facility] Comment on above: Order Comment: Speci men Type: BLOOD SPECIMENOrdering Facility: [facility] Address: [address] [place] [address] Performed By: #### 2 4323-8 ####[facility] LABCLIA [id number] [place] [address] ALP [Catalytic activity/Vol] 102 U/L Normal 38-113 [facility] Comment on above: Order Comment: Speci men Type: BLOOD SPECIMENOrdering Facility: [facility] Address: [address] [place] [address] Performed By: #### 2 4323-8 ####[facility] LABCLIA [id number] [place] [address] ALT [Catalytic activity/Vol] 22 U/L Normal 10-54 [facility] Comment on above: Order Comment: Speci men Type: BLOOD SPECIMENOrdering Facility: [facility] Address: [address] [place] [address] Performed By: #### 2 4323-8 ####[facility] LABCLIA [id number] [place] [address] Anion gap [Moles/Vol] 13 mmol/L Normal 9-18 [facility] Comment on above: Order Comment: Speci men Type: BLOOD SPECIMENOrdering Facility: [facility] Address: [address] [place] [address] Performed By: #### 2 4323-8 ####[facility] LABIA [id number] [place] [address] AST [Catalytic activity/Vol] 21 U/L Normal 14-40 [facility] Comment on above: Order Comment: Speci men Type: BLOOD SPECIMENOrdering Facility: [facility] Address: [address] [place] [address] Performed By: #### 2 4323-8 ####[facility] LABCLIA [id number] [place] [address] Bilirubin [Mass/Vol] 0.4 mg/dL Normal 0.2-1.3 [facility] Comment on above: Order Comment: Speci men Type: BLOOD SPECIMENOrdering Facility: [facility] Address: [address] [place] [address] Performed By: #### 2 4323-8 ####[facility] LABCLIA [id number] [place] [address] Calcium [Mass/Vol] 9.3 mg/dL Normal 8.5-10.2 [facility] Comment on above: Order Comment: Speci men Type: BLOOD SPECIMENOrdering Facility: [facility] Address: [address] [place] [address] Performed By: #### 2 4323-8 ####[facility] LABCLIA [id number] [place] [address] Chloride [Moles/Vol] 104 mmol/L Normal 97-105 [facility] Comment on above: Order Comment: Speci men Type: BLOOD SPECIMENOrdering Facility: [facility] Address: [address] [place] [address] Performed By: #### 2 4323-8 ####[facility] LABCLIA [id number] [place] [address] CO2 [Moles/Vol] 23 mmol/L Normal 22-30 [facility] Comment on above: Order Comment: Speci men Type: BLOOD SPECIMENOrdering Facility: [facility] Address: [address] [place] [address] Performed By: #### 2 4323-8 ####[facility] LABCLIA [id number] [place] [address] Creatinine [Mass/Vol] 0.96 mg/dL Normal 0.73-1.22 [facility] Comment on above: Order Comment: Radha carina Type: BLOOD SPECIMENOrdering Facility: [facility] Address: [address] [id number] Performed By: #### 2 4323-8 ####[facility] LABCLIA [id number] [place] [address] ESTIMATED GLOMERULAR FILTRATION RATE 84 mL/min/1.73m??? Normal >=60 [facility] Comment on above: Order Comment: Radha lim Type: BLOOD SPECIMENOrdering Facility: [facility] Address: [address] [place] [address] Result Comment: Daysi mated Glomerular Filtration Rate [...] actual GFR. Performed By: #### 2 4323-8 ####[facility] LABCLIA [id number] [place] [address] Glucose [Mass/Vol] 131 mg/dL High 74-99 [facility] Comment on above: Order Comment: Radha carina Type: BLOOD SPECIMENOrdering Facility: [facility] Address: [address] [place] [address] Result Comment: The [place] [employer] (ADA) provides guidance for cutoff [...] Standards of Medical Care in Diabetes 2016, [place] [employer]. Diabetes Care. 2016.39(Suppl 1). Performed By: #### 2 4323-8 ####[facility] LABCLIA [id number] [place] [address] Potassium [Moles/Vol] 4.1 mmol/L Normal 3.7-5.1 [facility] Comment on above: Order Comment: Speci men Type: BLOOD SPECIMENOrdering Facility: [facility] Address: [address] [place] [address] Performed By: #### 2 4323-8 ####[facility] LABCLIA [id number] [place] [address] Protein [Mass/Vol] 7.2 g/dL Normal 6.3-8.0 [facility] Comment on above: Order Comment: Speci men Type: BLOOD SPECIMENOrdering Facility: [facility] Address: [address] [place] [address] Performed By: #### 2 4323-8 ####[facility] LABCLIA [id number] [place] [address] Sodium [Moles/Vol] 140 mmol/L Normal 136-144 [facility] Comment on above: Order Comment: Speci men Type: BLOOD SPECIMENOrdering Facility: [facility] Address: [address] [place] [address] Performed By: #### 2 4323-8 ####[facility] LABCLIA [id number] [place] [address] Urea nitrogen [Mass/Vol] 16 mg/dL Normal 9-24 [facility] [facility] Comment on above: Order Comment: Speci men Type: BLOOD SPECIMENOrdering Facility: [facility] Address: [address] [place] [address] Performed By: #### 2 4323-8 ####[facility] LABCLIA [id number] [place] [address] CNNURSEon 10-03-2021 CNNURSE Nurse Visit (UROSMN) ----- MILAN CAMARILLO ([id number]) 1950 M Date Time Provider Department 10/03/21 2:00 PM FLUROURODYNAMICS UROSMN During your visit today, we recorded the following information about you: Thao Singer RN 10/03/2021 3:25 PM Signed [facility] URODYNAMICS LAB URODYNAMIC [...] Thao Ram MD 10/07/2021 8:29 PM Signed [facility] PHYSICIAN INTERPRETATION: Urodynamics [...] (D3-2000 ORAL) (more content not included)... 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 Normal [facility] CBC AUTO DIFFon 10-01-2021 BASO # 0.1 103/ul Normal 0.0-0.1 [facility] Comment on above: Performed By: #### P SASC #### [facility] [address], [place] [address] Dr. Karina Del Valle Basophils/100 WBC (Bld) 0.8 % Normal 0.2-2.0 [facility] Comment on above: Performed By: #### P SASC #### [facility] [address] [place], [place] [address] Dr. Karina Del Valle EO # 0.3 103/ul Normal 0.0-0.7 [facility] Comment on above: Performed By: #### P SASC #### [facility] [address] [address] [address] Karina Del Valle Eosinophils/100 WBC (Bld) 4.4 % Normal 0.9-7.0 [facility] Comment on above: Performed By: #### P SASC #### [facility] [address] [place] [address] Dr. Karina Del Valle Erythrocyte distribution width (RBC) [Ratio] 13.9 % Normal 11.0-15.0 [facility] Comment on above: Performed By: #### P SASC #### [facility] [address] [place] [address] Dr. Karina Del Valle Hematocrit (Bld) [Volume fraction] 41.9 % Critically low 42.0-54.0 [facility] Comment on above: Performed By: #### P SASC #### [facility] [address] [place] [address] Dr. Karina Del Valle Hemoglobin (Bld) [Mass/Vol] 13.7 g/dL Critically low 14.0-18.0 [facility] Comment on above: Performed By: #### P SASC #### [facility] [address] [place] [address] Dr. Karina Del Valle IG # 0.03 10e3/ul Normal 0.00-0.03 [facility] Comment on above: Performed By: #### P SASC #### [facility] [address] [place] [address] Dr. Karina Del Valle IG % 0.5 % Normal 0.0-0.5 [facility] Comment on above: Performed By: #### P SASC #### [facility] [address] [place] [address] Dr. Karina Del Valle LYMPH # 1.1 103/ul Critically low 1.2-3.8 [facility] Comment on above: Performed By: #### P SASC #### [facility] [address] [place] [address] Dr. Karina Del Valle Lymphocytes/100 WBC (Bld) 18.6 % Critically low 20.5-60.0 [facility] Comment on above: Performed By: #### P SASC #### [facility] [address] [place] [address] Dr. Karina Del Valle MANUAL DIFF REQ NO Normal [facility] Comment on above: Performed By: #### P SASC #### [facility] [address] [place] [address] Dr. Karina Del Valle MCH (RBC) [Entitic mass] 29.4 pg Normal 25.9-34.0 [facility] Comment on above: Performed By: #### P SASC #### [facility] [address] [place] [address] Dr. Karina Del Valle MCHC (RBC) [Mass/Vol] 32.7 g/dL Normal 29.9-35.2 [facility] Comment on above: Performed By: #### P SASC #### [facility] [address] [place] [address] Dr. Karina Del Valle MCV (RBC) [Entitic vol] 89.9 fL Normal 80.0-94.0 [facility] Comment on above: Performed By: #### P SASC #### [facility] [address] [place] [address] Dr. Karina Del Valle MONO # 0.8 103/ul Normal 0.3-0.8 [facility] Comment on above: Performed By: #### P SASC #### [facility] [address] [place] [address] Dr. Karina Del Valle Monocytes/100 WBC (Bld) 12.7 % Critically high 1.7-12.0 [facility] Comment on above: Performed By: #### P SASC #### [facility] [address] [place] [address] Dr. Karina Del Valle NEUT # 3.8 103/ul Normal 1.4-6.5 [facility] Comment on above: Performed By: #### P SASC #### [facility] [address] [place] [address] Dr. Karina Del Valle Neutrophils/100 WBC (Bld) 63.0 % Normal 43.0-75.0 [facility] Comment on above: Performed By: #### P SASC #### [facility] [address] [address] [address] Karina Del Valle Platelet mean volume (Bld) [Entitic vol] 10.1 fL Normal 9.5-13.5 [facility] Comment on above: Performed By: #### P SASC #### [facility] [address] [address] [address] Karina Del Valle PLT 226 103/ul Normal 150-450 [facility] Comment on above: Performed By: #### P SASC #### [facility] [address] [address] [address] Karina Del Valle RBC 4.66 106/ul Critically low 4.70-6.10 [facility] Comment on above: Performed By: #### P SASC #### [facility] [address] [address] [address] Karina Del Valle WBC 6.1 103/ul Normal 4.0-11.0 [facility] Comment on above: Performed By: #### P SASC #### [facility] [address] [address] [address] Karina Del Valle GLYCOHEMOGLOBIN A1Con 2021 ADA RECOMMENDATION ADA THERAPEUTIC TARG ET 6.0 - 7.0 ACTION SUGGESTED > 7.0 Normal [facility] Comment on above: Performed By: #### A 1C #### [facility] [address] [place] [address] Dr. Karina Del Valle Glucose [Mass/Vol] 114 mg/dL Normal [facility] Comment on above: Performed By: #### A 1C #### [facility] [address] [address] [address] Karina Del Valle HbA1c (Bld) [Mass fraction] 5.6 % Normal <=6.0 [facility] Comment on above: Performed By: #### A 1C #### [facility] [address] [place] [address] Dr. Karina Del Valle LIPID PROFILEon 10-01-2021 CHOL-HDL RATIO NORM SEE BELOW Normal [facility] Comment on above: Result Comment: 3.3 - 4.4 LOW RISK 4.4 - 7.1 AVERAGE RISK 7.1 - 11.0 MODERATE RISK >11.0 HIGH RISK Performed By: #### P SASC #### [facility] [address] [address] [address] Karina Del Valle Cholesterol [Mass/Vol] 103 mg/dL Normal <=200 [facility] Comment on above: Performed By: #### P SASC #### [facility] [address] [address] [address] Karina Del Valle Cholesterol in HDL [Mass/Vol] 35 mg/dL Critically low 40-60 [facility] Comment on above: Performed By: #### P SASC #### [facility] [address] [address] [address] Karina Del Valle Cholesterol in LDL [Mass/Vol] 49.0 mg/dL Normal [facility] Comment on above: Performed By: #### P SASC #### [facility] [address] [place] [address] Dr. Karina Del Valle Cholesterol.total/ Cholesterol in HDL [Mass ratio] 2.9 {ratio} Normal [facility] Comment on above: Performed By: #### P SASC #### [facility] [address] [address] [address] Karina Del Valle HDL NORMAL > or = 60 mg/dl - LO W CARDIOVASCULAR RISK <40 mg/dl - HIGH CARDIOVASCULAR RISK Normal [facility] Comment on above: Performed By: #### P SASC #### [facility] [address] [address] [address] Karina Del Valle LDL CALC NORMAL SEE BELOW Normal [facility] Comment on above: Result Comment: <100 mg/dl OPTIMAL 100 - 129 mg/dl NEAR OR ABOVE OPTIMAL 130 - 159 mg/dl BORDERLINE HIGH 160 - 189 mg/dl HIGH >190 mg/dl VERY HIGH Performed By: #### P SASC #### [facility] [address] [place] [address] Dr. Karina Del Valle Triglyceride [Mass/Vol] 95 mg/dL Normal <=150 [facility] Comment on above: Performed By: #### P SASC #### [facility] [address] [address] [address] Karina Del Valle VLDL CALC 19.0 mg/dL Normal [facility] Comment on above: Performed By: #### P SASC #### [facility] [address] [address] [address] Karina Del Valle PROF 14(COMP METB)on 022 Albumin [Mass/Vol] 3.8 g/dL Normal 3.4-5.0 [facility] Comment on above: Performed By: #### P SASC #### [facility] [address] [place] [address] Dr. Karina Del Valle Albumin/Globulin [Mass ratio] 0.9 {ratio} Normal [facility] Comment on above: Performed By: #### P SASC #### [facility] [address] [place] [address] Dr. Karina Del Valle ALP [Catalytic activity/Vol] 100 U/L Normal 46-116 [facility] Comment on above: Performed By: #### P SASC #### [facility] [address] [place] [address] Dr. Karina Del Valle ALT [Catalytic activity/Vol] 35 U/L Normal 16-63 [facility] Comment on above: Performed By: #### P SASC #### [facility] [address] [place] [address] Dr. Karina Del Valle Anion gap [Moles/Vol] 13.3 mmol/L Normal [facility] Comment on above: Performed By: #### P SASC #### [facility] [address] [place] [address] Dr. Karina Del Valle AST [Catalytic activity/Vol] 23 U/L Normal 15-37 [facility] Comment on above: Performed By: #### P SASC #### [facility] [address] [place] [address] Dr. Karina Del Valle Bilirubin [Mass/Vol] 0.4 mg/dL Normal 0.2-1.3 [facility] Comment on above: Performed By: #### P SASC #### [facility] [address] [place] [address] Dr. Karina Del Valle Calcium [Mass/Vol] 8.9 mg/dL Normal 8.5-10.1 [facility] Comment on above: Performed By: #### P SASC #### [facility] [address] [address] [address] Karina Del Valle Chloride [Moles/Vol] 104 mmol/L Normal 98-107 [facility] Comment on above: Performed By: #### P SASC #### [facility] [address] [address] [address] Karina Del Valle CO2 [Moles/Vol] 29.1 mmol/L Normal 22.0-30.0 [facility] Comment on above: Performed By: #### P SASC #### [facility] [address] [place] [address] Dr. Karina Del Valle Creatinine [Mass/Vol] 1.01 mg/dL Normal 0.66-1.25 [facility] Comment on above: Performed By: #### P SASC #### [facility] [address] [address] [address] Karina Del Valle EGFR-AF AUSTRALIAN >60 Normal >=60 [facility] Comment on above: Performed By: #### P SASC #### [facility] [address] [place] [address] Dr. Karina Del Valle EGFR-NON AF AUSTRALIAN >60 Normal >=60 [facility] Comment on above: Performed By: #### P SASC #### [facility] [address] [place] [address] Dr. Karina Del Valle Globulin (S) [Mass/Vol] 4.0 g/dL Normal [facility] Comment on above: Performed By: #### P SASC #### [facility] [address] [address] [address] Karina Del Valle Glucose [Mass/Vol] 97 mg/dL Normal 74-106 [facility] Comment on above: Performed By: #### P SASC #### [facility] [address] [place] [address] Dr. Karina Del Valle Potassium [Moles/Vol] 4.4 mmol/L Normal 3.4-5.0 [facility] Comment on above: Performed By: #### P SASC #### [facility] [address] [address] [address] Karina Del Valle Protein [Mass/Vol] 7.8 g/dL Normal 6.1-8.2 [facility] Comment on above: Performed By: #### P SASC #### [facility] [address] [address] [address] Karina Del Valle Sodium [Moles/Vol] 142 mmol/L Normal 137-145 [facility] Comment on above: Performed By: #### P SASC #### [facility] [address] [address] [address] Karina Del Valle Urea nitrogen [Mass/Vol] 11.0 mg/dL Normal 7.0-18.0 [facility] Comment on above: Performed By: #### P SASC #### [facility] [address] [address] [address] Karina Del Valle Urea nitrogen/Creatinin e [Mass ratio] 10.9 mg/mg Normal [facility] Comment on above: Performed By: #### P SASC #### [facility] [address] [address] [address] Karina Irby 04-30-2021 KURT Office Visit (URONATALIEN ) ----- MILAN CAMARILLO ([id number]) 1950 M Date Time Provider Department 04/30/21 1:15 PM JESUS RAM During your visit today, we recorded the following information about you: Pulse Blood pressure 62/minute 138/84 Jesus Ram MD 04/30/2021 4:53 PM Signed [facility] [place] NEW PATIENT HISTORY AND PHYSICAL EXAM PATIENT INFO: Milan Camarillo 70 year old REFERRING M.D.: Rasheed Hanks [address] [facility] [id number] ======= HISTORY: Milan Camarillo is a 70 year [...] UDS. Milan Camarillo had recent MRI at [facility] in [place] for renal mass. Milan Camarillo reports lots [...] RECOMMENDED. ? 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 ======= MEDICATIONS: Current Outpatient Medications Medication Sig - [...] (COZAAR) 100 mg tablet 50 mg. - Granger-3 Fatty Acids, FISH OIL, (FISH OIL) 360-1,200 [...] (FLONASE) 50 mcg/actuation nasal spray Use 1 [place] in each nostril once daily. No current facility-administered medications for this visit. MEDICATION ALLERGIES: ALLERGIES Allergen Reactions - Glucosamine Anaphylaxis, Unknown - Iv Dye [Iodinated C* Hives - Shellfish Containin* Hives - Niacin Hives, Rash PAST MEDICAL HISTORY Diagnosis Date - Arthritis - Chronic back pain - COPD (chronic obstructive pulmonary disease) (HCC) - DM (diabetes mellitus) ([facility]) - HTN (hypertension) - Hypercholesteremia - Panic [...] weight l (more content not included)... Normal [facility] Urinalysison 04-30-2021 Bilirubin, Urine Negative Normal Negative [facility] Comment on above: Performed By: #### U A ####[place] [phone] Clarity (U) Clear Normal Clear [facility] Comment on above: Performed By: #### U A ####[place] [phone] Color (U) Colorless Critically abnormal Yellow [facility] Comment on above: Performed By: #### U A ####[place] [phone] Comments SEE COMMENT Normal [facility] Comment on above: Result Comment: Micr oscopic not warranted Performed By: #### U A ####[place] [address] [place] [phone] Glucose Ql (U) Negative Normal Negative [facility] Comment on above: Performed By: #### U A ####[place] [address] [place] [phone] Hemoglobin/Blood,U r Negative Normal Negative [facility] Comment on above: Performed By: #### U A ####[place] [address] [place] [phone] Ketones Ql (U) Negative Normal Negative [facility] Comment on above: Performed By: #### U A ####[place] [address] [address] [place], [place] [phone] Leukest Negative Normal Negative [facility] Comment on above: Performed By: #### U A ####[place] [address] [place] [phone] Nitrite Ql (U) Negative Normal Negative [facility] Comment on above: Performed By: #### U A ####[place] [address] [place] [phone] pH (U) 5.5 [pH] Normal 5.0-8.0 [facility] Comment on above: Performed By: #### U A ####[place] [phone] Protein, Urine Negative Normal Negative [facility] Comment on above: Performed By: #### U A ####[place] [phone] Specific [place], Ur 1.005 Normal 1.005-1.030 [facility] Comment on above: Performed By: #### U A ####[place] [phone] Urine Chrissie Comment SEE COMMENT Normal [facility] Comment on above: Result Comment: N/A Performed By: #### U A ####[place] [phone] Urobilinogen (U) [Mass/Vol] Negative Normal Negative [facility] Comment on above: Performed By: #### U A ####[place] [phone] Urine Cultureon 04-19-2021 Bacteria identified Cx Nom [...] F Vancomycin SUSCEPTIBLE 1 F Critically abnormal [facility] Comment on above: Performed By: #### U RCUL ####[facility] [address] [place], [place] [phone] MRI KIDNEY WO/W IVCONon 10-2 MRI KIDNEY WO/W IVCON * * *Final Report* * * DATE OF EXAM: Apr 13 2021 10:07AM CHM 0721 - MRI KIDNEY WO/W IVCON / [...] included: axial precontrast T1 weighted in- and [id number]-jniei, axial and coronal HASTE, axial DWI with [...] IS RECOMMENDED. 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 Sourcing Assistant: CAROL Transcribe Date/Time: Apr 13 2021 10:48A Dictated by : REEMA CAMPOS MD This examination was interpreted and the report reviewed and electronically signed by: GALILEO DURAN MD on Apr 13 2021 1:52PM EST [id number] Normal [facility] MRI KIDNEY WO/W IVCONon 10-2 [facility] CNOVon 03-23-2021 CNOV Office Visit (UROLMN ) ----- MILAN CAMARILLO ([id number]) 1950 M Date Time Provider Department 03/23/21 10:45 AM RASHEED HANKS During your visit today, we recorded the following information about you: Pulse Blood pressure Weight Height 62/minute 125/76 119.7 kg 1.93 m Antonette Segura MD 03/23/2021 12:17 PM Signed [facility] NEW PATIENT [...] No results found for: CREAT URINALYSIS: Specific [place], Ur Date Value Ref Range Status 03/23/2021 [...] (COZAAR) 100 mg tablet 50 mg. - [place]anger-3 Fatty Acids, FISH OIL, (FISH OIL) 360-1,200 [...] (FLONASE) 50 mcg/actuation nasal spray Use 1 [place] in each nostril once daily. - cetirizine [...] RESPIRATORY: N (more content not included)... Normal [facility] Urinalysison 03-23-2021 Bilirubin, Urine Negative Normal Negative [facility] Comment on above: Performed By: #### U A ####[place] [phone] Clarity (U) Clear Normal Clear [facility] Comment on above: Performed By: #### U A ####[place] [phone] Color (U) Colorless Critically abnormal Yellow [facility] Comment on above: Performed By: #### U A ####[place] [phone] Comments SEE COMMENT Normal [facility] Comment on above: Result Comment: Micr oscopic not warranted Performed By: #### U A ####[place] [phone] Glucose Ql (U) Negative Normal Negative [facility] Comment on above: Performed By: #### U A ####[place] [phone] Hemoglobin/Blood,U r Negative Normal Negative [facility] Comment on above: Performed By: #### U A ####[place] [phone] Ketones Ql (U) Negative Normal Negative [facility] Comment on above: Performed By: #### U A ####[place] [address] [place], [place] [phone] Leukest Negative Normal Negative [facility] Comment on above: Performed By: #### U A ####[place] [address] [address] [place], [place] [phone] Nitrite Ql (U) Negative Normal Negative [facility] Comment on above: Performed By: #### U A ####[place] [address] [address] [place], [place] [phone] pH (U) 6.0 [pH] Normal 5.0-8.0 [facility] Comment on above: Performed By: #### U A ####[address] [phone] Protein, Urine Negative Normal Negative [facility] Comment on above: Performed By: #### U A ####[place] [address] [place], [place] [phone] Specific [place], Ur 1.004 Low 1.005-1.030 [facility] Comment on above: Performed By: #### U A ####[place] [address] [address] [place], [place] [phone] Urine Chrissie Comment SEE COMMENT Normal [facility] Comment on above: Result Comment: N/A Performed By: #### U A ####[place] [address] [address] [place], [place] [phone] Urobilinogen (U) [Mass/Vol] Negative Normal Negative [facility] Comment on above: Performed By: #### U A ####[place] [address] [address] [place], [place] [phone] Activated partial thrombopla stin time (aPTT) in platelet poor plasma by coagulation aon 12-06-2020 aPTT Coag (PPP) [Time] 37.2 s 25.1-36.5 [facility] Basophils Auto (Bld) [#/Vol] on 12-06-2020 Basophils (Bld) [#/Vol] 0.1 10*3/uL 0.0-0.2 [facility] Basophils/100 WBC Auto (Bld) on 12-06-2020 Basophils/100 WBC (Bld) 0.9 % [facility] Blood hemoglobin measurement (mass/volume)on 12-06-2020 Hemoglobin (Bld) [Mass/Vol] 13.6 g/dL 13.0-17.0 [facility] Blood leukocytes automated c ount (number/volume)on 12-06-2020 WBC (Bld) [#/Vol] 5.9 10*3/uL 4.5-11.0 [facility] Cholesterol [Mass/volume] in Serum or Plasmaon 12-06-2020 Cholesterol [Mass/Vol] 105 mg/dL 140-200 [facility] Comment on above: Chol less than 200 m g/dl low riskChol 201-239 mg/dl borderline riskChol 240 mg/dl and greater high risk Cholesterol in LDL Calc [Mas s/Vol]on 12-06-2020 Cholesterol in LDL [Mass/Vol] 50 mg/dL 0-100 [facility] Comment on above: LDL ATP III CLASSIFI CATIONLDL less than 100 mg/dL OptimalLDL 100-129 mg/dL Near or above optimalLDL 130-159 mg/dL Borderline highLDL 160-189 mg/dL HighLDL greater than 189 mg/dL Very high Cholesterol in VLDL Calc [Ma ss/Vol]on 12-06-2020 Cholesterol in VLDL [Mass/Vol] 26 mg/dL [facility] Creatinine and Glomerular fi ltration rate.predicted panel (S/P/Bld)on 12-06-2020 Creatinine [Mass/Vol] 0.89 mg/dL 0.64-1.27 [facility] Eosinophils Auto (Bld) [#/Vo l]on 12-06-2020 Eosinophils (Bld) [#/Vol] 0.2 10*3/uL 0.0-0.45 [facility] Eosinophils/100 WBC Auto (Bl d)on 12-06-2020 Eosinophils/100 WBC (Bld) 3.4 % [facility] Erythrocyte distribution wid th Auto (RBC) [Ratio]on 12-06-2020 Erythrocyte distribution width (RBC) [Ratio] 14.4 % 12.0-14.8 [facility] Estimated glomerular filtrat ion rate (GFR) non- Americanon 12-06-2020 GFR/1.73 sq M.predicted among non-blacks MDRD (S/P/Bld) [Vol rate/Area] > 60 mL/Min [facility] Hematocrit Auto (Bld) [Volum e fraction]on 12-06-2020 Hematocrit (Bld) [Volume fraction] 39.6 % 38.8-50.0 [facility] Laboratory - Coagulationon 0 12-06-2020 PT Coag (PPP) [Time] 11.6 s 9.0-12.9 [facility] - Hematology and Cell countson 12-06-2020 Nucleated RBC/100 WBC (Bld) [Ratio] 0.1 % 0-0.5 [facility] Lymphocytes Auto (Bld) [#/Vo l]on 12-06-2020 Lymphocytes (Bld) [#/Vol] 1.0 10*3/uL 1.00-4.8 [facility] Lymphocytes/100 WBC Auto (Bl d)on 12-06-2020 Lymphocytes/100 WBC (Bld) 17.5 % [facility] MCH Auto (RBC) [Entitic mass ]on 12-06-2020 MCH (RBC) [Entitic mass] 31.0 pg 27.5-35.2 [facility] MCHC Auto (RBC) [Mass/Vol]on 12-06-2020 MCHC (RBC) [Mass/Vol] 34.5 g/dL 32.5-35.6 [facility] MCV Auto (RBC) [Entitic vol] on 12-06-2020 MCV (RBC) [Entitic vol] 90.0 fL 83.5-101 [facility] Monocytes Auto (Bld) [#/Vol] on 12-06-2020 Monocytes (Bld) [#/Vol] 0.6 10*3/uL 0.0-0.8 [facility] Monocytes/100 WBC Auto (Bld) on 12-06-2020 Monocytes/100 WBC (Bld) 10.3 % [facility] Neutrophils Auto (Bld) [#/Vo l]on 12-06-2020 Neutrophils (Bld) [#/Vol] 4.0 10*3/uL 1.8-7.7 [facility] Neutrophils/100 WBC Auto (Bl d)on 12-06-2020 Neutrophils/100 WBC (Bld) 67.9 % [facility] No Panel Informationon 12-06 Estimated GFR () > 60 mL/Min [facility] Comment on above: GFR estimated refere nce range: According to KDOQI guidelines, <60 ml/min/1.73m2 is sufficient to diagnose a patient with chronic kidney disease. Pharmacy Creatinine Clearance (Chem N/A [facility] Platelet mean volume Auto (B ld) [Entitic vol]on 12-06-2020 Platelet mean volume (Bld) [Entitic vol] 8.8 fL 6.6-10.1 [facility] Platelet poor plasma interna tional normalized ratio (INR) by coagulation assay (relaton 12-06-2020 INR Coag (PPP) [Relative time] 1.0 {INR} [facility] Comment on above: INR Therapeutic Rang [...] 12-06-2020 Platelets (Bld) [#/Vol] 201 10*3/uL 150-450 [facility] RBC Auto (Bld) [#/Vol]on RBC (Bld) [#/Vol] 4.40 10*6/uL 3.90-5.60 [facility] Serum or plasma chloride warren surement (moles/volume)on 12-06-2020 Chloride [Moles/Vol] 101 mmol/L 95-114 [facility] Serum or plasma high density lipoprotein (HDL) cholesterol measurementon 12-06-2020 Cholesterol in HDL [Mass/Vol] 28 mg/dL 29-71 [facility] Comment on above: HDL CHOL ATP-III CLA SSIFICATION Cardiovascular RiskHDL > or equal to 60 mg/dL LOWHDL < 40 mg/dL HIGH Serum or plasma potassium me asurement (moles/volume)on 12-06-2020 Potassium [Moles/Vol] 4.4 mmol/L 3.5-5.1 [facility] Serum or plasma sodium measu rement (moles/volume)on 12-06-2020 Sodium [Moles/Vol] 139 mmol/L 136-146 [facility] Serum or plasma total carbon dioxide measurement (moles/volume)on 12-06-2020 CO2 [Moles/Vol] 26.3 mmol/L 22.0-30.0 [facility] Serum or plasma total choles terol/high density lipoprotein (HDL) cholesterol mass alirio 12-06-2020 Cholesterol.total/ Cholesterol in HDL [Mass ratio] 3.8 {ratio} [facility] Serum or plasma urea nitroge n measurement (mass/volume)on 12-06-2020 Urea nitrogen [Mass/Vol] 7 mg/dL 9-23 [facility] Triglyceride [Mass/volume] i n Serum or Plasmaon 12-06-2020 Triglyceride [Mass/Vol] 134 mg/dL 35-149 [facility] Comment on above: TRIG ATP III CLASSIF ICATIONTRIG less than 150 mg/dL NormalTRIG 150-199 mg/dL Borderline highTRIG 200-500 mg/dL High TRIG greater than 500 mg/dL Very highStandard traceable to the Center for Disease Conrtrol and Prevention (CDC) test method. History and Physicalon 10-16 HIM IP Note OR Right Of Way Worker Normal [facility] OPERATIVE REPORTon 8 OPERATIVE REPORT [address] [address] OPERATIVE REPORTPATIENT NAME: RABIAMILAN Horowitz : 1950MED REC NO: [id number] ROOM:ACCOUNT NO: [id number] ADMIT DATE: 10/16/2017PROVIDER: Ana Paula K. OrgelDATE OF PROCEDURE: 10/16/2017PREOPERATIVE DIAGNOSIS: Macular hole, left eye.POSTOPERATIVE DIAGNOSIS: Macular hole, left eye.PRINCIPAL PROCEDURES:1. Vitrectomy, left eye.2. Removal of internal limiting lamina, left eye.3. Air-fluid exchange, left eye.4. Injection of 15% C3F8, left eye.SURGEON: Ana Paula Vasquez, MDCOMPLICATIONS: None.ANESTHESIA: Local monitored.INDICATIONS: The patient is [...] [place] 9[place]30.ANA PAULA EPPSELD: 10/16/2017 10:40:57 MILLI/[id number]#: [id number] Doc#: [id number]: [facility] Op Noteon 10-16-2017 HIM IP Note OR Right Of Way Worker [facility] Vital Signs Date Time Vital Sign Value Performing Clinician Facility 08-16-2024 14:36-0500 Body height 190.5 cm Marisol Gandhi NP Work Phone: [facility] 08-16-2024 14:36-0500 Body mass index (BMI) [Ratio] 33.12 kg/m2 Marisol Gandhi NP Work Phone: [facility] 08-16-2024 14:36-0500 Body weight 120.2 kg Marisol Gandhi NP Work Phone: [facility] 08-09-2024 11:48-0500 Blood Pressure Location Jeremy KELLEY [facility] 08-09-2024 11:48-0500 Body temperature 98.6 [degF] Jeremy KELLEY [facility] 08-09-2024 11:48-0500 Diastolic blood pressure 80 mm[Hg] Jeremy KELLEY [facility] 08-09-2024 11:48-0500 Heart rate 65 /min Jeremy KELLEY [facility] 08-09-2024 11:48-0500 Respiratory rate 17 /min Jeremy KELLEY [facility] [place] [facility] 08-09-2024 11:48-0500 Systolic blood pressure 132 mm[Hg] Jeremy KELLEY [facility] [place] [facility] 03-01-2024 11:37-0400 Body height 190.5 cm Emma Parkinsoning [employer] Work Phone: [facility] 03-01-2024 11:37-0400 Body mass index (BMI) [Ratio] 34 kg/m2 Emma Apling [employer] Work Phone: [facility] 03-01-2024 11:37-0400 Body weight 123.38 kg Emma Apling [employer] Work Phone: [facility] 01-29-2024 10:20-0400 Blood Pressure Location ANNABELLE ARCHULETARY [facility] 01-29-2024 10:20-0400 Diastolic blood pressure 80 mm[Hg] ANNABELLE SOFIA [facility] [place] [facility] 01-29-2024 10:20-0400 Heart rate 74 /min ANNABELLE SOFIA [facility] [place] [facility] 01-29-2024 10:20-0400 Respiratory rate 16 /min ANNABELLE SOFIA [facility] [place] [facility] 01-29-2024 10:20-0400 Systolic blood pressure 132 mm[Hg] ANNABELLE SOFIA [facility] [place] [facility] 12-16-2023 10:28-0400 Body height 182.88 cm MD Raegan March Work Phone: [facility] 12-16-2023 10:28-0400 Body mass index (BMI) [Ratio] 37.2 kg/m2 MD Raegan March Work Phone: [facility] 12-16-2023 10:28-0400 Body weight 124.42 kg MD Raegan March Work Phone: [facility] 12-16-2023 10:28-0400 Diastolic blood pressure 67 mm[Hg] MD Raegan March Work Phone: [facility] 12-16-2023 10:28-0400 Heart rate 62 /min MD Raegan March Work Phone: [facility] 12-16-2023 10:28-0400 SaO2% (BldA) [Mass fraction] 94 % MD Raegan March Work Phone: [facility] 12-16-2023 10:28-0400 Systolic blood pressure 130 mm[Hg] MD Raegan March Work Phone: [facility] 09-15-2023 09:12-0400 Body temperature 98.42 [degF] Jeremy KELLEY [facility] [place] [facility] 09-15-2023 09:12-0400 Diastolic blood pressure 80 mm[Hg] Jeremy KELLEY [facility] [place] [facility] 09-15-2023 09:12-0400 Heart rate 61 /min Jeremy KELLEY [facility] [place] [facility] 09-15-2023 09:12-0400 Respiratory rate 16 /min Jeremy KELLEY [facility] [place] [facility] 09-15-2023 09:12-0400 Systolic blood pressure 139 mm[Hg] Jeremy KELLEY [facility] 05-06-2023 10:30-0500 Body height 182.88 cm Khadijah Grove Other [facility] Other 05-06-2023 10:30-0500 Body mass index (BMI) [Ratio] 37.84 kg/m2 Khadijah Grove Other [facility] Other 05-06-2023 10:30-0500 Body weight 126.55 kg Khadijah Grove Other [facility] Other 05-06-2023 10:30-0500 Diastolic blood pressure 73 mm[Hg] Khadijah Grove Other [facility] Other 05-06-2023 10:30-0500 SaO2% (BldA) [Mass fraction] 97 % Khadijah Grove Other [facility] Other 05-06-2023 10:30-0500 Systolic blood pressure 142 mm[Hg] Khadijah Grove Other [facility] Other 03-17-2023 09:01-0400 Blood Pressure Location Jeremy KELLEY [facility] 03-17-2023 09:01-0400 Diastolic blood pressure 79 mm[Hg] Jeremy KELLEY [facility] [place] [facility] 03-17-2023 09:01-0400 Heart rate 57 /min Jeremy KELLEY [facility] [place] [facility] 03-17-2023 09:01-0400 Respiratory rate 16 /min Jeremy KELLEY [facility] [place] [facility] 03-17-2023 09:01-0400 Systolic blood pressure 140 mm[Hg] Jeremy KELLEY [facility] 12-09-2022 09:34-0400 Blood Pressure Location Jeremy KELLEY [facility] 12-09-2022 09:34-0400 Diastolic blood pressure 80 mm[Hg] Jeremy KELLEY [facility] 12-09-2022 09:34-0400 Heart rate 80 /min Jeremy KELLEY [facility] 12-09-2022 09:34-0400 Respiratory rate 16 /min Jeremy KELLEY [facility] 12-09-2022 09:34-0400 Systolic blood pressure 130 mm[Hg] Jeremy KELLEY [facility] 12-12-2021 14:50-0400 Diastolic blood pressure 68 mm[Hg] Marcy Warminski C D STILL OPERATOR.PICU NURSE Work Phone: [facility] 12-12-2021 14:50-0400 Systolic blood pressure 126 mm[Hg] Marcy Warminski C D STILL OPERATOR.PICU NURSE Work Phone: [facility] 12-12-2021 13:57-0400 Body weight 123.11 kg Marcy Warminski C D STILL OPERATOR.PICU NURSE Work Phone: [facility] 12-12-2021 13:57-0400 Heart rate 52 /min Marcy Warminski C D STILL OPERATOR.PICU NURSE Work Phone: [facility] 10-23-2021 11:38-0400 Body height 193 cm Pacc 4 Work Phone: [facility] 10-23-2021 11:38-0400 Body temperature 97 [degF] Pacc 4 Work Phone: [facility] 10-23-2021 11:38-0400 Body weight 125.19 kg Pacc 4 Work Phone: [facility] 10-23-2021 11:38-0400 Diastolic blood pressure 65 mm[Hg] Pacc 4 Work Phone: [facility] 10-23-2021 11:38-0400 Heart rate 57 /min Pacc 4 Work Phone: [facility] 10-23-2021 11:38-0400 Respiratory rate 16 /min Pacc 4 Work Phone: [facility] 10-23-2021 11:38-0400 SaO2% (BldA) [Mass fraction] 97 % Pacc 4 Work Phone: [facility] 10-23-2021 11:38-0400 Systolic blood pressure 142 mm[Hg] Pacc 4 Work Phone: [facility] Encounters Encounter Date Encounter Type Care Provider Facility Start: 02-14-2025 ambulatory Jeremy KELLEY Facili ty:[facility] Start: 11-25-2024 ambulatory Raegan March Facility :[facility] Start: 10-14-2024 ambulatory Raegan March Facility :[facility] Start: 08-30-2024 ambulatory Raegan March Facility :[facility] Start: 08-26-2024 ambulatory [facility] Facil ity:[facility] Start: 08-20-2024 ambulatory [facility] Facil ity:[facility] Start: 08-16-2024 End: 08-16-2024 ambulatory MARISOL GANDHI Not Available Start: 08-16-2024 End: 08-16-2024 Patient encounter procedure Marisol Gandhi [employer] Work Phone: [facility] Comment on above: Preop examination Start: 08-16-2024 End: 08-16-2024 Preprocedural examination done Marisol Gandhi [employer] Work Phone: [facility] Start: 08-16-2024 End: 08-16-2024 Bamboo flowsheet Marisol Gandhi [employer] Work Phone: [facility] Start: 08-16-2024 End: 08-16-2024 Bamboo flowsheet Marisol Gandhi [employer] Work Phone: [facility] Start: 08-09-2024 End: 08-09-2024 ambulatory Jeremy KELLEY Facility:[facility] Start: 08-09-2024 End: 08-09-2024 Patient encounter procedure Jeremy KELLEY [facility] Start: 08-02-2024 End: 08-02-2024 ambulatory Jeremy Bennie ALLIE Facility:[facility] Start: 08-02-2024 End: 08-02-2024 Patient encounter procedure Jeremy R ALLIE [facility] Start: 07-08-2024 End: 07-08-2024 ambulatory Raegan March Facility:[facility] Start: 07-01-2024 End: 07-08-2024 ambulatory Raegan Adler Joaquim Facility:CD:[id number] Start: 06-29-2024 End: 06-29-2024 Bamboo flowsheet Shabbir PACK Work Phone: [facility] Start: 06-29-2024 End: 06-29-2024 Bamboo flowsheet Shabbir PACK Work Phone: [facility] Start: 06-29-2024 End: 06-29-2024 Patient encounter procedure Shabbir PACK Work Phone: [facility] Comment on above: Pre-op examination ( Primary Dx); Arthritis of right hip Start: 06-29-2024 End: 06-29-2024 Preprocedural examination done Shabbir PACK Work Phone: [facility] Work Phone: Start: 06-29-2024 End: 06-29-2024 ambulatory SHABBIR SAWYER Not Available Start: 06-24-2024 End: 06-24-2024 ambulatory PERICO HOLGUIN Facility:[facility] Start: 06-24-2024 End: 06-24-2024 Patient encounter procedure WELLINGTON HOLGUIN [facility] Start: 06-24-2024 End: 06-24-2024 ambulatory PICU NURSE WELLINGTON HOLGUIN Facility:[facility] Jaime Start: 06-01-2024 End: 06-01-2024 ambulatory Raegan March Facility:[facility] Start: 05-05-2024 End: 05-05-2024 Bamboo flowsheet Jr. Tulio Bellamy Stepgabino DO Work Phone: [facility] Start: 05-05-2024 End: 05-05-2024 Bamboo flowsheet JrHanna Bellamy Stepanic DO Work Phone: [facility] Start: 05-05-2024 End: 05-05-2024 Office outpatient visit 25 minutes Jr. Tulio Bellamy Stepgabino DO Work Phone: [facility] Comment on above: Arthritis of right h ip (Primary Dx) Start: 05-05-2024 End: 05-05-2024 ambulatory Hanna TULIO Mia COLONGABINO Not Available Start: 04-15-2024 End: 04-15-2024 Lab Drop off Raegan March [facility] Start: 04-15-2024 End: 04-15-2024 ambulatory Raegan March Facility:[facility] Start: 03-11-2024 End: 03-11-2024 Bamboo flowsheet Daryl Young PT Work Phone: [facility] Start: 03-11-2024 End: 03-11-2024 Bamboo flowsheet Daryl Young PT Work Phone: [facility] Start: 03-11-2024 End: 03-11-2024 ambulatory Daryl Young PT Work Phone: [facility] Comment on above: Arthritis of right h ip (Primary Dx) Start: 03-08-2024 End: 04-27-2024 Telephone encounter Leticia CH Work Phone: [facility] Comment on above: surgery Start: 03-02-2024 End: 03-02-2024 Bamboo flowsheet Molly Ramirez DO Work Phone: [facility] Start: 03-02-2024 End: 03-02-2024 Bamboo flowsheet Molly Ramirez DO Work Phone: [facility] Start: 03-02-2024 End: 03-02-2024 Office outpatient visit 25 minutes Molly Ramirez DO Work Phone: [facility] Comment on above: Right hip pain (Prim bryson Dx); Arthritis of right hip Start: 03-02-2024 End: 03-02-2024 ambulatory MOLLY RAMIREZ Not Available Start: 03-01-2024 End: 03-01-2024 Bamboo flowsheet Emma Weston Apling [employer] Work Phone: [facility] Start: 03-01-2024 End: 03-01-2024 Bamboo flowsheet Emma Weston Apling [employer] Work Phone: [facility] Start: 03-01-2024 End: 03-01-2024 Office outpatient new 30 minutes Emma Weston Apling [employer] Work Phone: [facility] Comment on above: Right hip pain (Prim bryson Dx); Arthritis of right hip Start: 03-01-2024 End: 03-01-2024 ambulatory EMMA Weston APLING Not Available Start: 02-12-2024 Non-patient / Non-visit MD Raegan March Work Phone: [facility] Work Phone: Start: 02-12-2024 End: 02-12-2024 Patient encounter procedure MD Raegan March Work Phone: [facility] Work Phone: Start: 02-12-2024 End: 02-12-2024 ambulatory MD Raegan March Work Phone: [facility] Work Phone: Start: 01-29-2024 End: 01-29-2024 ambulatory ANNABELLE HATFIELD Facility:[facility] Start: 01-29-2024 End: 01-29-2024 Patient encounter procedure ANNABELLE HATFIELD [facility] Start: 01-15-2024 End: 01-15-2024 ambulatory Raegan March Facility:[facility] Start: 12-30-2023 End: 12-30-2023 ambulatory WELLINGTON HOLGUIN Facility:[facility] Start: 12-18-2023 End: 12-18-2023 ambulatory Raegan March Facility:[facility] Start: 12-16-2023 End: 12-16-2023 Patient encounter procedure MD Raegan March Work Phone: [facility] Work Phone: Start: 11-28-2023 End: 11-28-2023 Lab Drop off Pau Lowery [facility] Start: 11-28-2023 End: 11-28-2023 ambulatory Raegan March Facility:[facility] Start: 11-25-2023 End: 11-25-2023 ambulatory Raegan March Facility:[facility] Start: 09-15-2023 End: 09-15-2023 Patient encounter procedure MD Raegan March Work Phone: [facility] Work Phone: Start: 09-15-2023 End: 09-15-2023 ambulatory MD Raegan March Work Phone: [facility] Work Phone: Start: 09-15-2023 End: 09-15-2023 ambulatory Jeremy KELLEY Facility:[facility] Start: 09-15-2023 End: 09-15-2023 Patient encounter procedure Jeremy KELLEY [facility] [place] [facility] Start: 09-11-2023 End: 09-11-2023 ambulatory Raegan March Facility:[facility] Start: 09-02-2023 Non-patient / Non-visit MD Raegan March Work Phone: [facility] Sleep [facility] Work Phone: Start: 09-01-2023 End: 09-01-2023 Patient encounter procedure MD Raegan March Work Phone: [facility] Work Phone: Start: 09-01-2023 End: 09-01-2023 ambulatory Khadijah Grove Facility:[facility] Start: 08-12-2023 End: 08-12-2023 ambulatory Raegan March Facility:[facility] Start: 07-10-2023 End: 07-10-2023 Lab Drop off ANNABELLE HATFIELD [facility] Start: 07-10-2023 End: 07-10-2023 Patient encounter procedure Jeremy KELLEY [facility] [place] [facility] Start: 06-25-2023 End: 06-25-2023 Lab Drop off Aviva Bang [facility] Start: 06-25-2023 End: 06-25-2023 Patient encounter procedure Jeremy KELLEY [facility] [place] [facility] Start: 06-09-2023 End: 06-09-2023 Lab Drop off Raegan March [facility] Start: 05-06-2023 Office outpatient ne w 45 minutes Khadijah Grove [facility] Start: 05-06-2023 End: 05-06-2023 ambulatory Khadijah Grove [facility] [employer] Other Start: 03-17-2023 End: 03-17-2023 Lab Drop off Jeremy Bennie KELLEY [facility] Start: 03-17-2023 End: 03-17-2023 Patient encounter procedure Jeremy KELLEY [facility] [place] [facility] Start: 12-09-2022 End: 12-09-2022 Patient encounter procedure Jeremy Bennie KELLEY [facility] Start: 11-25-2022 End: 11-25-2022 Lab Drop off Raegan March [facility] Start: 08-26-2022 End: 08-27-2022 ambulatory RAEGAN MARCH Facility:[facility] Start: 08-26-2022 End: 08-26-2022 Lab Drop off Raegan March [facility] Start: 08-05-2022 End: 08-06-2022 ambulatory KATJA BAEZ [...] Facility: Start: 12-31-2021 Telephone encounter Rubén schmitt APRN.[facility] Work Phone: Urology Comment on above: Surgical Followup Start: 12-12-2021 End: 12-12-2021 Patient encounter status Marcy Donahue APRN.CNP Work Phone: Urology Start: 12-12-2021 End: 12-12-2021 Preprocedural examination done Marcy Donahue APRN.PICU NURSE Work Phone: Urology Start: 12-12-2021 End: 12-12-2021 [...] 10-23-2021 End: 10-23-2021 Admission to establishment [place]acc [place] [id number] Work Phone: [facility] Start: 10-23-2021 End: 10-23-2021 ambulatory [facility] Work Phone: Pre Anesthesia Comment on above: Preop examination (P rimary Dx); BPH with obstruction/lower urinary tract symptoms; Type 2 diabetes mellitus without complication, without long-term current use of insulin ([facility]); Hypertension, unspecified type; Swelling; Chronic obstructive pulmonary disease, unspecified COPD type ([facility]); Hypercholesteremia; On supplemental oxygen therapy; Former smoker; Obesity (BMI 30.0-34.9) Start: 10-23-2021 End: 10-23-2021 Preprocedural examination done [facility] Work Phone: Pre Anesthesia Start: 10-03-2021 End: [...] 04-13-2021 Subsequent hospital visit by physician [facility] (Lg Bore/1.5t) Radiology MRI Comment on above: Other 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 [N28.89] Start: 12-06-2020 End: 12-06-2020 Patient encounter procedure BRANDIE Garber Work Phone: -Pre-Surgical Testing Start: 10-16-2017 End: 10-16-2017 Ambulatory ANA PAULA VASQUEZ [facility] Start: 09-09-2017 End: 09-10-2017 Ambulatory DEFAULT PHYSICIAN [facility] Start: 09-08-2017 End: 09-09-2017 Ambulatory DEFAULT PHYSICIAN [facility] Procedures Date Procedure Procedure Detail Performing Clinician Start: 03-01-2024 Radex hip unilateral with pelvis 2-3 views Emma Menchcaa NP Work Phone: Start: 08-26-[address] CATRACHO JIMÉNEZ . Comment on above: Performed By: #### PSASC #### [facility] [address] [place] [address] Dr. Karina Del Valle Start: 12-21-2021 Transurethral prostatectomy Jeremy HUDDLESTON Start: 12-12-2021 Antibody screen Comment on above: Order Comment: Specimen Type: BLOOD SPEC IMENOrdering Facility: [facility] Address: [address] [place] [address] Performed By: #### T [id number] ####CC [facility] BLOOD BANKCLIA [id number] OF [place] Start: 12-12-2021 Urnls dip stick/tablet rgnt auto w/o microscopy Bulk Order Provider Start: 04-13-2021 Mri abdomen w/o & w/contrast material Rasheed Hanks MD Work Phone: Start: 01-10-2021 Colonoscopy Emma Bernarda GLORIA Work Phone: Start: 01-10-2021 Colonoscopy Raegan March [...] Treatment Date Care Activity Detail Author Start: 01-10-2031 Screening for malignant neoplasm of colon [facility] Start: 09-24-2024 End: 09-24-2024 Patient encounter procedure 09/24/2024 9:00 AM EDT Office Visit [facility] [address] [place] [phone] Shabbir Sawyer, PA [address] [facility] [address] [place] [address] [facility] Start: 07-26-2024 End: 07-26-2024 Patient encounter procedure 07/26/2024 9:00 AM EST Office Visit [facility] [address] [place] [place] [phone] Shabbir Sawyer, PA [address] [place] [address] [facility] Start: 06-29-2024 End: 06-29-2024 Patient encounter procedure 06/29/2024 8:45 AM EST Office Visit [facility] [address] [place] [phone] Shabbir Sawyer, PA [address] [facility] [address] [place] [address] Pre-op examination (Primary Dx); Arthritis of right hip [facility] ORTH[facility]EDICS Comment on above: Pre-op examination (Primary Dx); Arthritis of right hip Start: 05-05-2024 End: 05-05-2024 Patient encounter procedure 05/05/2024 1:30 PM EST Office Visit [facility] [address] [place] [id number] Jr. Tulio Parks DO [address] [place] [address] [facility] Start: 03-11-2024 End: 03-11-2024 ambulatory [facility] Comment on above: Arthritis of right hip Start: 03-10-2024 End: 03-10-2024 ambulatory 03/10/2024 9:00 AM EDT Evaluation [facility] [address] [place] [address] Daryl Young, PT [address] [place] [address] [facility] Start: 03-02-2024 End: 03-02-2024 Patient encounter procedure [facility] Comment on above: Arrived Start: 03-01-2024 End: 03-01-2024 Patient encounter procedure 03/01/2024 11:30 AM EDT Office Visit [facility] [address] [place] [id number] Emma Menchaca, [employer] [address] [place] [address] Left hip pain (Primary Dx) [facility] Comment on above: Left hip pain (Primary Dx) Start: 02-22-2024 Influenza vaccination Influenza Vaccine (#1) [facility] Start: 02-21-2023 Covid-19 Vaccine ( season) Covid-19 Vaccine ( season) [facility] Start: 02-21-2023 Influenza vaccination Influenza Vaccine (#1) [facility] Start: 12-25-2022 BP CONTROLLED (<130/80) BP CONTROLLED (<130/80) [facility] Start: 12-12-2022 BP CONTROLLED (<130/80) BP CONTROLLED (<130/80) [facility] Start: 06-23-2022 Advance Directive Discussion Advance Directive Discussion [facility] Start: 06-23-2022 Depression Assessment Depression Assessment [facility] Start: 02-21-2022 Influenza vaccination INFLUENZA (#1) [facility] Start: 01-09-2022 End: 03-11-2022 Basic metabolic 2000 panel - Serum or Plasma BASIC METABOLIC PNL Lab Routine Recurrent urinary tract infection Incomplete bladder emptying Expected: 01/09/2022, Expires: 03/11/2022 [facility] Work Phone: Comment on above: Expected: 01/09/2022, Expires: 2 Start: 01-09-2022 End: 03-11-2022 CBC panel - Blood by Automated count CBC Lab Routine Recurrent urinary tract infection Incomplete bladder emptying Expected: 01/09/2022, Expires: 03/11/2022 [facility] Work Phone: Comment on above: Expected: 01/09/2022, Expires: 2 Start: 12-12-2021 End: 02-11-2022 Comprehensive metabolic 2000 panel - Serum or Plasma [facility] Work Phone: Comment on above: Expected: 12/12/2021 (Approximate), Expi res: 02/11/2022 Start: 12-12-2021 End: 02-11-2022 TYPE AND SCREEN,30 DAY [facility] Work Phone: Comment on above: Expected: 12/12/2021 (Approximate), Expi res: 02/11/2022 Start: 11-14-2021 Adult depression screening assessment DEPRESSION SCREENING [facility] Start: 06-23-2021 ADVANCE DIRECTIVE DISCUSSION ADVANCE DIRECTIVE DISCUSSION [facility] Start: 2014 PNEUMOVAX AGE 65 AND OVER WITH 5YR LOOKBACK (#1) PNEUMOVAX AGE 65 AND OVER WITH 5YR LOOKBACK (#1) [facility] Start: 2009 Hepatitis B Vaccine (1 of 3 - Risk 3-dose series) Hepatitis B Vaccine (1 of 3 - Risk 3-dose series) [facility] Start: 2009 RSV Vaccine (1 - 1-dose 60+ series) RSV Vaccine (1 - 1-dose 60+ series) [facility] Start: 2004 Influenza vaccination LUNG CANCER SCREENING [facility] Start: 09-17-1999 Influenza vaccination LUNG CANCER SCREENING [facility] Start: 09-17-1999 SHINGRIX VACCINE (1 of 2) SHINGRIX VACCINE (1 of 2) [facility] Start: 1994 COLOGUARD (FIT-DNA) COLOGUARD (FIT-DNA) [facility] Start: 1994 Colonoscopy COLONOSCOPY [facility] Start: 1994 COLORECTAL CANCER SCREENING COLORECTAL CANCER SCREENING [facility] Start: [address] COLONOGRAPHY [facility] Start: 1994 FECAL OCCULT BLOOD FECAL OCCULT BLOOD [facility] Start: 1994 SIGMOIDOSCOPY SIGMOIDOSCOPY [facility] Start: 09-17-1979 Zoledronic acid therapy ALPHA-1 ANTITRYPSIN DEFICIENCY SCREENING [facility] Start: 1968 SHINGRIX VACCINE (1 of 2) SHINGRIX VACCINE (1 of 2) [facility] Start: 1968 Urine microalbumin profile [facility] Start: 09-17-1967 ANNUAL PCP TEAM CHRONIC DISEASE VISIT ANNUAL PCP TEAM CHRONIC DISEASE VISIT [facility] Start: 09-17-1967 BP CONTROLLED (<130/80) BP CONTROLLED (<130/80) [facility] Start: 09-17-1967 Hepatitis B surface antibody level LDL CHOLESTEROL [facility] Start: 09-17-1967 HEPATITIS C SCREENING HEPATITIS C SCREENING [facility] Start: 09-17-1967 SPIROMETRY SPIROMETRY [facility] Start: 09-17-1959 3 comp foot exam completed DIABETIC FOOT EXAM [facility] Start: 09-17-1959 Hepatitis B screening URINE ALBUMIN:CREATININE RATIO [facility] Start: 09-17-1959 Hepatitis C antibody, confirmatory test DILATED RETINAL EXAM [facility] Start: 09-17-1955 Pneumococcal Vaccine: 65+ (1 - PCV) Pneumococcal Vaccine: 65+ (1 - PCV) [facility] Start: 09-17-1955 PNEUMOCOCCAL: 65+ (1 - PCV) PNEUMOCOCCAL: 65+ (1 - PCV) [facility] Start: 1954 Hemoglobin A1c/Hemoglobin.total in Blood HBA1C [facility] Start: 1949 ABDOMINAL AORTIC ANEURYSM SCREENING ABDOMINAL AORTIC ANEURYSM SCREENING [facility] Start: 1950 Screening for malignant neoplasm of colon [facility] Bacteria identified in Urine by Culture URINE CULTURE Microbiology Routine Pre-op testing 12/12/2021 2:27 PM EDT [facility] Work Phone: End: 10-23-2022 ECG COMPLETE ECG COMPLETE ECG Routine Preop examination BPH with obstruction/lower urinary tract symptoms Type 2 diabetes mellitus without complication, without long-term current use of insulin (HCC) Hypertension, unspecified type Swelling Chronic obstructive pulmonary disease, unspecified COPD type (HCC) Hypercholesteremia On supplemental oxygen therapy Former smoker Obesity (BMI 30.0-34.9) 1 Occurrences starting 10/23/2021 until 10/23/2022 [facility] Work Phone: Comment on above: 1 Occurrences starting 10/23/2021 until 10/23/2022 SARS-CoV-2 (COVID-19 ) RNA [Presence] in Respiratory specimen by LYNNETTE with probe detection SELF CHECK COVID Microbiology Routine Pre-op testing Ordered: 12/12/2021 [facility] Work Phone: Comment on above: Ordered: 12/12/2021 URINALYSIS, REFLEX MICROSCOPIC URINALYSIS, REFLEX MICROSCOPIC Lab Routine Screening for genitourinary condition Ordered: 12/12/2021 [facility] Work Phone: Comment on above: Ordered: 12/12/2021 [facility] Immunizations Immunization Date Immunization Notes Care Provider Jesus [facility] 05-01-2024 influenza virus vaccine, unspecified formulation [place] [facility] 05-23-2023 influenza virus vaccine, unspecified formulation Raegan March [facility] 05-23-2023 Influenza, Seasonal, Quadrivalent, Adjuvanted Molly Ashely DO Work Phone: [facility] 06-03-2022 SARS-CoV-2 (COVID-19 ) [id number] Raegan March [facility] 04-23-2022 influenza virus vaccine, unspecified formulation Raegan March [facility] 04-23-2022 Influenza, High-dose Seasonal, Quadrivalent, Preservative Free Molly Ashley DO Work Phone: [facility] 09-25-2021 zoster vaccine recombinant Raegan March [facility] 06-18-2021 zoster vaccine recombinant Raegan March [facility] 04-06-2021 influenza virus vaccine, unspecified formulation Raegan March [facility] 04-06-2021 Influenza, High-dose Seasonal, Quadrivalent, Preservative Free [facility] DO Work Phone: [facility] 04-06-2021 SARS-CoV-2 (COVID-19 ) mRNA BNT-162b2 vax Raegan March [facility] Comment on above: Result Comment: 2022: [id number] 08-22-2020 COVID-19 mRNA,[id number] b2 (Pfizer) NA Jcarlos Work Phone: [facility] Comment on above: Result Comment: 2022: TPV70 08-04-2020 SARS-CoV-2 (COVID-19 ) mRNA BNT-162b2 vax Raegan March [facility] 07-31-2020 COVID-19 mRNA,UPN477 b2 (Pfizer) NA Jcarlos Work Phone: [facility] Comment on above: Result Comment: 2022: TPV70 07-24-2020 SARS-CoV-2 (COVID-19 ) mRNA-1273 vaccine Raegan March [facility] 04-19-2020 influenza virus vaccine, unspecified formulation Raegan March [facility] 04-19-2020 Seasonal, quadrivalent, recombinant, injectable influenza vaccine, preservative free Molly RolandAshley DO Work Phone: [facility] 03-23-2020 influenza virus vaccine, unspecified formulation Raegan Marhc [facility] 03-23-2020 influenza, seasonal, injectable Molly Ashley DO Work Phone: [facility] 03-23-2020 pneumococcal vaccine , unspecified formulation Emma Menchaca NP Work Phone: [facility] 05-04-2019 influenza virus vaccine, unspecified formulation Raegan March [facility] 05-04-2019 influenza, high dose seasonal, preservative-free Molly Ashley DO Work Phone: [facility] 04-29-2018 influenza virus vaccine, unspecified formulation Raegan March [facility] 04-29-2018 influenza, high dose seasonal, preservative-free Molly Ashley DO Work Phone: [facility] 04-23-2017 influenza virus vaccine, unspecified formulation Raegan Joaquim [facility] 04-23-2017 influenza, high dose seasonal, preservative-free Molly Ashley DO Work Phone: [facility] 04-23-2017 pneumococcal polysaccharide vaccine, 23 valent Raegan Joaquim [facility] 03-23-2015 influenza virus vaccine, unspecified formulation Raegan March [facility] 03-23-2015 influenza, injectabl e, madin cele canine kidney, preservative free Molly Ashley DO Work Phone: [facility] 03-23-2015 pneumococcal polysaccharide vaccine, 23 valent Raegan March [facility] 03-13-2015 influenza virus vaccine, unspecified formulation Raeganjoel March [facility] 03-13-2015 influenza, high dose seasonal, preservative-free Molly Ashley DO Work Phone: [facility] 03-13-2015 pneumococcal conjuga te vaccine, 13 valent Raegan March [facility] NEGATED: Highlighted row has not occurred!03-17-2023 influenza virus vaccine, unspecified formulation Jeremy KELLEY [facility] Payers Date Payer Category Payer Private Health Insurance [id number] 2024 Private Health Insurance [id number] 2024 Unknown [id number] 2023 Medicare (Managed Care) 1.2. [id number] 2023 Private Health Insurance [id number] 2023 Medicare [id number] 2.16.840.1.568986.19 2023 Unknown [id number] 2023 Self-pay [id number] 2021 Medicare [employer] BY JUJU O [id number] 2021-Present [phone] [place] [id number] [facility] [id number]. [id number] 2021 Unknown [id number] 2020 Medicare [id number]. 1.13.159.2. [id number] 2017 Medicare [id number] 1950 Unknown [id number] 2.16.840.1.375528.3.579.2. 593 1949 Unknown [id number] 2.16.840.1.416462.3.579.2. 593 1949 Unknown [id number] 2.16.840.1.677974.3.579.2. 593 1949 Unknown [id number] 2.16.840.1.559664.3.579.2. 593 1949 Unknown [id number] 2.16.840.1.384236.3.579.2. 593 1949 Unknown [id number] 2.16.840.1.605184.3.579.2. 593 1949 Unknown [id number] 2.16.840.1.235047.3.579.2. 727 1949 Unknown [id number] 2.16.840.1.306895.3.579.2. 727 1949 Unknown [id number] 2.16.840.1.681534.3.579.2 727 1949 Unknown [id number] 2.16.840.1.658812.3.579.2. 727 1949 Unknown [id number] 2.16.840.1.381282.3.579.2. 727 1949 Unknown [id number] 2.16.840.1.377128.3.579.2. 727 1949 Unknown [id number] 2.16.840.1.012155.3.579.2. 727 1949 Unknown [id number] 2.16.840.1.470420.3.579.2. 727 1949 Unknown [id number] 2.16.840.1.710390.3.579.2. 727 1949 Unknown [id number] 2.16.840.1.074634.3.579.2. 727 1949 Unknown [id number] 2.16.840.1.393326.3.579.2 727 1949 Unknown [id number] 2.16.840.1.580733.3.579.2. 727 1949 Unknown [id number] 2.16.840.1.165726.3.579.2. 727 1949 Unknown [id number] 2.16.840.1.906510.3.579.2. 727 1949 Unknown [id number] 2.16.840.1.509520.3.579.2. 727 1949 Unknown [id number] 2.16.840.1.590401.3.579.2. 727 1949 Unknown [id number] 2.16.840.1.729513.3.579.2. 1259 1949 Unknown [id number] 2.16.840.1.147819.3.579.2. 1259 1949 Unknown [id number] 2.16.840.1.276981.3.579.2. 1259 1949 Unknown [id number] 2.16.840.1.704580.3.579.2. 1259 1949 Unknown [id number] 2.16.840.1.304295.3.579.2. 1259 1949 Unknown [id number] 2.16.840.1.416246.3.579.2. 1259 1949 Unknown [id number] 2.16.840.1.670557.3.579.2. 1259 1949 Unknown [id number] 2.16.840.1.109391.3.579.2. 718 1949 Unknown [id number] 2.16.840.1.862078.3.579.2. 718 1949 Unknown [id number] 2.16.840.1.889276.3.579.2. 727 1949 Unknown [id number] 2.16.840.1.459717.3.579.2. 727 1949 Unknown [id number] 2.16.840.1.949995.3.579.2. 727 1949 Unknown [id number] 2.16.840.1.458657.3.579.2. 727 1949 Unknown [id number] 2.16.840.1.032203.3.579.2. 727 1949 Unknown [id number] 2.16.840.1.994855.3.579.2. 727 1949 Unknown [id number] 2.16.840.1.963614.3.579.2. 727 1949 Unknown [id number] 2.16.840.1.726878.3.579.2. 727 Medicare [id number] Private Health Insurance Self Pay [id number] Unknown Unknown [id number] 2.16840.1.740622.3.579.2. 531 Unknown [id number] 2.16840.1.100289.3.579.2. 531 Unknown [id number] 2.16840.1.890820.3.579.2. 531 Unknown [id number] 2.840.1.958479.3.579.2. 531 Social History Date Type Detail Facility Start: 12-06-2020 End: 03-05-2023 Tobacco smoking status NHIS Ex-smoker (finding) [facility] Start: 1950 Sex Assigned At Male [facility] End: 07-03-2017 History of tobacco use Current smoker [facility] End: 07-03-2017 History of tobacco use Cigarette Smoker [facility] Start: 11-10-2018 End: 08-16-2024 Cigarettes smoked current (pack per day) - Reported 1.5 [facility] Start: 11-10-2018 End: 03-05-2023 Tobacco use and exposure Smokeless tobacco non-user [facility] Start: 11-14-2020 End: 04-30-2021 Alcohol intake Current non-drinker of alcohol (finding) [facility] Start: 02-21-2021 End: 01-09-2022 Exposure to SARS-CoV-2 (event) Not sure [facility] Start: 12-22-2021 End: 01-01-2022 Exposure to SARS-CoV-2 (event) Yes [facility] Start: 11-14-2020 End: 08-16-2024 Sex Assigned At Male [facility] Start: 12-11-2021 Gender identity Identifies as male gender (finding) [facility] Start: 03-01-2024 End: 08-16-2024 Alcoholic beverage intake Ex-drinker (finding) [facility] Start: 1950 Sex assigned at Not on file [facility] Functional Status Date Assessment Result Facility 08-09-2024 Functional Status N/A [facility] 01-29-2024 Functional Status N/A [facility] 09-15-2023 Functional Status N/A [facility] 03-17-2023 Functional Status N/A [facility] 12-09-2022 Functional Status N/A [facility] Clinical Notes 03-23-2021 to 08-20-2024 Marisol Gandhi NP - 08/16/2024 2:30 PM ESTMaRAMONE Chaudhry - 06/29/2024 8:45 AM ESTJr. Tulio Parks, - 05/05/2024 1:30 PM ESTTelephone Brent - Aviva Ray - 04/27/2024 1:33 PM EST Note Date & Type Note Facility 08-20-2024 Note PROCEDURE: XR Hip Co mplete Right COMPARISON: None. HISTORY: xray-right hip FINDINGS: BONES:No acute fracture or dislocation. Moderate to severe osteoarthritis with joint space narrowing and marginal osteophyte formation. Subchondral cystic changes of the acetabulum SOFT TISSUES:Negative. No visible soft tissue swelling. EFFUSION:None visible. OTHER: Negative. IMPRESSION: Moderate to severe osteoarthritis Final Dictated by: Khadijah Mccracken MD Dictated DT/TM: 08/23/24 7:34 Signed (Electronic Signature): Khadijah Mccracken MD 08/23/24 7:35 am Technologist: [facility] 08-16-2024 History of Present illness Narrative Images from the original note were not included. GENERAL HISTORY AND PHYSICAL: NAME: Milan Camarillo : 1950 HISTORY OF PRESENT ILLNESS: Milan Camarillo is an 73 y.o. @ male. Here for surgery instructions -H&P RT BEN 09/10/24 @ [facility] PAST MEDICAL HISTORY: Past Medical History: Diagnosis Date Anxiety BPH (benign prostatic hyperplasia) Compression fracture of cervical spine, Left COPD (chronic obstructive pulmonary disease) ([facility]/HCC) Depression ([facility]/HCC) DM (diabetes mellitus) ([facility]/HCC) History of lumbar surgery LUMBAR SURGERY PER DR RAMIREZ History of prostate cancer HLD (hyperlipidemia) ([facility]/HCC) HTN (hypertension) (CMS/HCC) Hx of pyelonephritis MARQUITA on CPAP Prostate CA ([facility]/HCC) Sleep apnea PAST SURGICAL HISTORY: Past Surgical History: Procedure Laterality Date APPENDECTOMY CATARACT EXTRACTION EXTRACAPSULAR W/ INTRAOCULAR LENS IMPLANTATION EGD 01/10/2021 with colonoscopy EGD 12/2020 OTHER SURGICAL HISTORY 05/07/2017 cystourethroscopy w dilation of urethral stricture OTHER SURGICAL HISTORY 09/19/2016 brachytherapy OTHER SURGICAL HISTORY external beam radiotherapy TONSILLECTOMY TRANSURETHRAL RESECTION OF PROSTATE 12/2021 SOCIAL HISTORY: Social History Occupational History Not on file Tobacco Use Smoking status: Former Types: Cigarettes Smokeless tobacco: Never Vaping Use Vaping status: Unknown Substance and Sexual Activity Alcohol use: Not Currently Drug use: Never Sexual activity: Defer ALLERGIES: Allergies Allergen Reactions Iodinated Contrast Media Anaphylaxis and Hives Other Reaction(s): Swelling of Lip/Tongue/Throat, Unknown Inositol Other Reaction(s): Unknown Iodine Other Reaction(s): Unknown Meloxicam Other Reaction(s): Unknown Shellfish-Derived Products Other Reaction(s): Unknown Inositol Niacinate Rash Niacin Rash MEDICATIONS: Current Outpatient Medications Medication Instructions albuterol HFA 90 mcg/act inhaler 1 puff, Inhalation, Every 4 hours PRN albuterol 2.5 mg, Nebulization, Every 6 hours PRN aspirin 81 mg, Oral, Daily atenolol (TENORMIN) 50 mg, Oral, 2 times daily atorvastatin (LIPITOR) 40 mg, Oral, Daily cetirizine (ZYRTEC) 10 mg, Oral, Daily PRN cholecalciferol (VITAMIN D-3) 2,000 Units, Oral, Daily famotidine (Pepcid) 20 MG tablet TAKE 1 TABLET BY MOUTH TWICE A DAY NEEDED FOR GERD SYMPTOMS Fish Oil 1,000 mg, Oral, Daily fluticasone (Flonase) 50 MCG/ACT nasal spray 2 sprays, Each Nostril, Daily, Shake gently. Before first use, prime pump. After use, clean tip and replace cap. furosemide (LASIX) 20 mg, Oral, Daily imipramine (TOFRANIL) 50 mg, Oral, 2 times daily irbesartan (AVAPRO) 75 mg, Oral, Nightly Iron Polysacch Itins-C03-UN (Poly-Iron 150 Forte) 150-0.025-1 MG capsule 1 tablet, Oral, Daily metFORMIN (GLUCOPHAGE) 500 mg, Oral, 2 times daily with meals rOPINIRole (REQUIP) 0.5 mg, Oral, 2 times daily tamsulosin (FLOMAX) 0.4 mg, Oral, Daily terazosin (HYTRIN) 2 mg, Oral, Nightly tiotropium-olodaterol (Stiolto Respimat) 2.5-2.5 MCG/ACT aerosol solution inhaler 2 Inhalation , Inhalation, Daily REVIEW OF SYSTEMS: Review of Systems Constitutional: Negative for fatigue, fever and unexpected weight change. Eyes: Negative for redness and visual disturbance. Gastrointestinal: Negative for abdominal pain. Denies Indigestion Genitourinary: Urinary retention + Musculoskeletal: See note: Skin: Negative for color change and rash. Neurological: Negative for light-headedness and numbness. Vitals: Body mass index is 33.12 kg/m . PHYSICAL EXAM: Physical Exam Constitutional: General: He is not in acute distress. Appearance: Normal appearance. HENT: Head: Normocephalic and atraumatic. Right Ear: External ear normal. Left Ear: External ear normal. Nose: Nose normal. No rhinorrhea. Mouth/Throat: Mouth: Mucous membranes are moist. Dentition: No gingival swelling or dental abscesses. Pharynx: Oropharynx is clear. No pharyngeal swelling or posterior oropharyngeal erythema. Eyes: Extraocular Movements: Extraocular movements intact. Conjunctiva/sclera: Conjunctivae normal. Cardiovascular: Rate and Rhythm: Normal rate and regular rhythm. Pulses: Normal pulses. Heart sounds: Normal heart sounds. No murmur heard. Pulmonary: Effort: Pulmonary effort is normal. No respiratory distress. Breath sounds: Normal breath sounds. No wheezing or rhonchi. Abdominal: Palpations: Abdomen is soft. Tenderness: There is no abdominal tenderness. Musculoskeletal: General: Swelling present. Cervical back: Normal range of motion and neck supple. Comments: Mild swelling over lateral right hip Lymphadenopathy: Cervical: No cervical adenopathy. Skin: General: Skin is warm and dry. Findings: No erythema or rash. Neurological: General: No focal deficit present. Mental Status: He is alert and oriented to person, place, and time. Psychiatric: Mood and Affect: Mood normal. Behavior: Behavior normal. Orders Placed This Encounter Procedures Ambulatory referral to Physical Therapy Home therapy for RT BEN 09/10/24 @ [facility]; PLEASE CALL PT TO SCHEDULE Standing Status: Future Standing Expiration Date: 02/13/2025 Referral Priority: Routine Referral Type: Rehabilitation - Outpatient Referral Reason: Specialty Services Required Referred to Provider: Gabriela Rodriguez, PT Requested Specialty: Physical Therapy Number of Visits Requested: 1 ASSESSMENT: ICD-10-CM 1. Preop examination Z01.818 Ambulatory referral to Physical Therapy Iron Polysacch Rcber-[id number] (Poly-Iron 150 Forte) 150-0.025-1 MG capsule PLAN: This patient presents for preadmission testing for upcoming surgery. Complete history with medical, surgery, and current allergy and medication list obtained. Consent for surgery signed and witnessed after verbal consent to perform surgery received. All questions answered and proposed surgery scheduled. RT BEN 09/10/24 @ [facility] 08/16/24 @ 2:30 [facility] 08/20/24 @ [address] MARCH 08/30/24 @ 1:[address] BAEZ (PT NEEDS TO SCHEDULE; COULD NOT REACH PT) PAULOUY NOTIFIED WOUND VAC NOTIFIED Follow up for Post-Op 09/24/24 @ [facility]. documented in this encounter [facility] 08-09-2024 Hospital Discharge instructions Patient Education 08/09/2024 13:04:50 Clean Intermittent Catheterization, Male Clean Intermittent Catheterization, Male Clean intermittent catheterization (CIC) is a procedure to drain pee (urine) from the bladder by placing a soft tube (catheter) into the bladder though the urethra. The urethra is a tube in the body that carries pee from the bladder out of the body. CIC reduces the risk of infection and other problems that may arise when pee is not completely emptied from the bladder. CIC may be done when: You cannot completely empty your bladder on your own. This may be due to a blockage in the bladder or urethra. Your bladder leaks pee. This may happen when the muscles or nerves near the bladder are not working normally, so the bladder overflows. Your health care provider will show you how to do the procedure. You will also be given the supplies you need to do the procedure. Supplies needed: Germ-free (sterile), water-based lubricant. A container for pee collection. You may also use the toilet to dispose of pee from the catheter. A catheter. Your provider will determine the best size for you. ?Use this catheter size: Clean gloves. Soap and water. Clean washcloth and towel. How to perform this procedure: Most people need CIC at least 4 times per day to completely empty the bladder. Your provider will tell you how often you should do CIC. Number of times per day to perform CIC: ____ To perform CIC, follow these steps: 1.Wash your hands with soap and water for 20 seconds. If soap and water are not available, use hand high school admissions representative. 2.Clean your penis with soap and water. Dry the tip of your penis completely. 3.Prepare the supplies that you will use during the procedure. Open the catheter package and lubricant. 4.Get in a comfortable position. Possible positions include: Sitting on a toilet, a chair, or the edge of a bed. Standing near a toilet. Lying down with your head raised on pillows and your knees pointing to the ceiling. You may wish to place a waterproof mat or pad under you. 5.If you are using a pee collection container, position it between your legs. 6.Pee, if you are able. 7.Put on gloves. 8.Apply lubricant to about 2 inches (5 cm) of the tip of the catheter. 9.Set the catheter down on a clean, dry surface within reach. 10.Gently stretch your penis out from your body. Pull back any skin that covers the end of your penis (foreskin). Clean the end of your penis with sterile swabs as told by your provider. 11.Hold your penis upward at a 45 60 degree angle. This helps to straighten the urethra. 12.Slowly insert the lubricated catheter straight into your urethra until pee flows freely. This is usually about 6 8 inches (15 20 cm). 13.When pee starts to flow freely, insert the catheter 1 inch (3 cm) more. Allow pee to drain into the toilet or the pee collection container. 14.When pee stops flowing, slowly remove the catheter. 15.Note the color, amount, and odor of the pee. 16.Measure your pee and note the amount, if told by your provider. 17.Discard the pee in the toilet. 18.Clean your penis using soap and water. 19.Move the foreskin back in place, if applicable. 20.If you are using a single-use catheter, discard the catheter and supplies. 21.Wash your hands with soap and water. 22.If you are using a reusable catheter, follow package instructions about how to clean the catheter after each use. How often should I do this procedure? Do CIC to empty your bladder every 4 6 hours or as often as told by your provider. If you have symptoms of too much pee in your bladder (overdistension) and you are not able to pee, perform CIC. Symptoms of overdistension may include: ?Restlessness. ?Sweating or chills. ?Headache. ?Flushed or pale skin. ?Bloated lower abdomen. What are the risks? The provider will talk with you about the risks. These may include: Infection. Injury to the urethra. Irritation of the urethra. Follow these instructions at home General instructions Drink enough fluid to keep your pee pale yellow. Throw away a catheter when it becomes dry, brittle, or cloudy. This usually happens after you use the catheter for 1 week. Avoid caffeine. Caffeine may make you need to pee more frequently and more urgently. When traveling, bring extra supplies with you in case of delays. Keep supplies with you in a place that you can access easily. If traveling by plane: ?Make sure that the lubricant in your carry-on bag is less than 3.4 ounces (100 mL). ?Use a single-use catheter. It may be difficult to clean a reusable catheter in a small bathroom. Take mxcg-cge-wlvklrl and prescription medicines only as told by your provider. Contact a health care provider if: You have difficulty doing CIC. You have pee leaking around the catheter during CIC. You have: ?Dark or cloudy pee. ?Blood in your pee or in your catheter. ?A change in the smell of your pee or discharge. ?A burning feeling while you pee. You vomit or feel like you may vomit. You have pain in your abdomen, your back, or your sides below your ribs. You have swelling or redness around the opening of your urethra. You develop a rash or sores on your skin. Get help right away if: You have a fever. You have symptoms that do not go away after 3 days. You have symptoms that suddenly get worse. You have severe pain. You start passing a little pee, or a little pee drains from your bladder. This information is not intended to replace advice given to you by your health care provider. Make sure you discuss any questions you have with your health care provider. Document Revised: 02/03/2023 Document Reviewed: 02/03/2023 [employer] Patient Education 2023 [employer]. Follow Up Care 08/06/2024 09:45:50 With:ALLIE CHOPRA, Jeremy Avery, URL Address: [facility] [address], [place] [id number] [phone] When: Unknown Comments:6 mos w/ PSA [facility] Jaime 08-09-2024 Note Patient Education Urology Clean Intermittent Catheterization, Male Clean intermittent catheterization (CIC) is a procedure to drain pee (urine) from the bladder by placing a soft tube (catheter) into the bladder though the urethra. The urethra is a tube in the body that carries pee from the bladder out of the body. CIC reduces the risk of infection and other problems that may arise when pee is not completely emptied from the bladder. CIC may be done when: ??? You cannot completely empty your bladder on your own. This may be due to a blockage in the bladder or urethra. ??? Your bladder leaks pee. This may happen when the muscles or nerves near the bladder are not working normally, so the bladder overflows. Your health care provider will show you how to do the procedure. You will also be given the supplies you need to do the procedure. Supplies needed: ??? Germ-free (sterile), water-based lubricant. ??? A container for pee collection. You may also use the toilet to dispose of pee from the catheter. ??? A catheter. Your provider will determine the best size for you. ? Use this catheter size: ??? Clean gloves. ??? Soap and water. ??? Clean washcloth and towel. How to perform this procedure: Most people need CIC at least 4 times per day to completely empty the bladder. Your provider will tell you how often you should do CIC. ??? Number of times per day to perform CIC: ____ To perform CIC, follow these steps: 1. Wash your hands with soap and water for 20 seconds. If soap and water are not available, use hand high school admissions representative. 2. Clean your penis with soap and water. Dry the tip of your penis completely. 3. Prepare the supplies that you will use during the procedure. Open the catheter package and lubricant. 4. Get in a comfortable position. Possible positions include: ??? Sitting on a toilet, a chair, or the edge of a bed. ??? Standing near a toilet. ??? Lying down with your head raised on pillows and your knees pointing to the ceiling. You may wish to place a waterproof mat or pad under you. 5. If you are using a pee collection container, position it between your legs. 6. Pee, if you are able. 7. Put on gloves. 8. Apply lubricant to about 2 inches (5 cm) of the tip of the catheter. 9. Set the catheter down on a clean, dry surface within reach. 10. Gently stretch your penis out from your body. Pull back any skin that covers the end of your penis (foreskin). Clean the end of your penis with sterile swabs as told by your provider. 11. Hold your penis upward at a 45?60 degree angle. This helps to straighten the urethra. 12. Slowly insert the lubricated catheter straight into your urethra until pee flows freely. This is usually about 6?8 inches (15?20 cm). 13. When pee starts to flow freely, insert the catheter 1 inch (3 cm) more. Allow pee to drain into the toilet or the pee collection container. 14. When pee stops flowing, slowly remove the catheter. 15. Note the color, amount, and odor of the pee. 16. Measure your pee and note the amount, if told by your provider. 17. Discard the pee in the toilet. 18. Clean your penis using soap and water. 19. Move the foreskin back in place, if applicable. 20. If you are using a single-use catheter, discard the catheter and supplies. 21. Wash your hands with soap and water. 22. If you are using a reusable catheter, follow package instructions about how to clean the catheter after each use. How often should I do this procedure? Do CIC to empty your bladder every 4?6 hours or as often as told by your provider. ??? If you have symptoms of too much pee in your bladder (overdistension) and you are not able to pee, perform CIC. Symptoms of overdistension may include: ? Restlessness. ? Sweating or chills. ? Headache. ? Flushed or pale skin. ? Bloated lower abdomen. What are the risks? The provider will talk with you about the risks. These may include: ??? Infection. ??? Injury to the urethra. ??? Irritation of the urethra. Follow these instructions at home General instructions ??? Drink enough fluid to keep your pee pale yellow. ??? Throw away a catheter when it becomes dry, brittle, or cloudy. This usually happens after you use the catheter for 1 week. ??? Avoid caffeine. Caffeine may make you need to pee more frequently and more urgently. ??? When traveling, bring extra supplies with you in case of delays. Keep supplies with you in a place that you can access easily. If traveling by plane: ? Make sure that the lubricant in your carry-on bag is less than 3.4 ounces (100 mL). ? Use a single-use catheter. It may be difficult to clean a reusable catheter in a small bathroom. ??? Take zvoy-nvq-bsegekb and prescription medicines only as told by your provider. Contact a health care provider if: ??? You have difficulty doing CIC. (more content not included)... [facility] 06-29-2024 History of Present illness Narrative Pt present for PAT for (R) BEN. New complaint of SOB on exertion, prescribed antibiotic by outplacement consultant PCP.. Pt feels he needs to go to ER for evaluation with worsening symptoms.. family will drive in there now. Pt will call after appt with PCP to reschedule. documented in this encounter [facility] 06-24-2024 Note Patient Education Infectious Disease Community-Acquired Pneumonia, Adult Pneumonia is an infection of the lungs. It causes irritation and swelling in the airways of the lungs. Mucus and fluid may also build up inside the airways. This may cause coughing and trouble breathing. One type of pneumonia can happen while you are in a hospital. A different type can happen when you are not in a hospital (community-acquired pneumonia). What are the causes? This condition is caused by germs (viruses, bacteria, or fungi). Some types of germs can spread from person to person. Pneumonia is not thought to spread from person to person. What increases the risk? You have a long-term (chronic) disease, such as: ? Disease of the lungs. This may be chronic obstructive pulmonary disease (COPD) or asthma. ? Heart failure. ? Cystic fibrosis. ? Diabetes. ? Kidney disease. ? Sickle cell disease. ? HIV. ??? You have other health problems, such as: ? Your body's defense system (immune system) is weak. ? A condition that may cause you to breathe in fluids from your mouth and nose. ??? You had your spleen taken out. ??? You do not take good care of your teeth and mouth (poor dental hygiene). ??? You use or have used tobacco products. ??? You go where the germs that cause this illness are common. ??? You are older than 65 years of age. What are the signs or symptoms? A cough. ??? A fever. ??? Sweating or chills. ??? Chest pain, often when you breathe deeply or cough. ??? Breathing problems, such as: ? Fast breathing. ? Trouble breathing. ? Shortness of breath. ??? Feeling tired (fatigued). ??? Muscle aches. How is this treated? Treatment for this condition depends on many things, such as: ??? The cause of your illness. ??? Your medicines. ??? Your other health problems. Most adults can be treated at home. Sometimes, treatment must happen in a hospital. ??? Treatment may include medicines to kill germs. ??? Medicines may depend on which germ caused your illness. Very bad pneumonia is rare. If you get it, you may: ??? Have a machine to help you breathe. ??? Have fluid taken away from around your lungs. Follow these instructions at home: Medicines ??? Take fguu-zru-evuvhjr and prescription medicines only as told by your doctor. ??? Take cough medicine only if you are losing sleep. Cough medicine can keep your body from taking mucus away from your lungs. ??? If you were prescribed antibiotics, take them as told by your doctor. Do not stop taking them even if you start to feel better. Lifestyle ??? Do not smoke or use any products that contain nicotine or tobacco. If you need help quitting, ask your doctor. ??? Do not drink alcohol. ??? Eat a healthy diet. This includes a lot of vegetables, fruits, whole grains, low-fat dairy products, and low-fat (lean) protein. General instructions ??? Rest a lot. Sleep for at least 8 hours each night. ??? Sleep with your head and neck raised. Put a few pillows under your head or sleep in a reclining chair. ??? Return to your normal activities as told by your doctor. Ask your doctor what activities are safe for you. ??? Drink enough fluid to keep your pee (urine) pale yellow. ??? If your throat is sore, gargle with a mixture of salt and water 3?4 times a day or as needed. To make salt water, completely dissolve ??1 tsp (3?6 g) of salt in 1 cup (237 mL) of warm water. ??? Keep all follow-up visits. How is this prevented? Getting the pneumonia shot (vaccine). These shots have different types and schedules. Ask your doctor what works best for you. Think about getting this shot if: ? You are older than 65 years of age. ? You are 19?65 years of age and: ? You are being treated for cancer. ? You have long-term lung disease. ? You have other problems that affect your body's defense system. Ask your doctor if you have one of these. ??? Getting your flu shot every year. Ask your doctor which type of shot is best for you. ??? Going to the dentist as often as told. ??? Washing your hands often with soap and water for at least 20 seconds. If you cannot use soap and water, use hand high school admissions representative. Contact a doctor if: ??? You have a fever. ??? You lose sleep because your cough medicine does not help. Get help right away if: ??? You are short of breath and this gets worse. ??? You have more chest pain. ??? Your sickness gets worse. This is very serious if: ? You are an older adult. ? Your body's defense system is weak. ??? You cough up blood. These symptoms may be an emergency. Get help right away. Call 911. ??? Do not wait to see if the symptoms will go away. ??? Do not drive yourself to the hospital. Summary ??? Pneumonia is an infection of the lungs. ??? Community-acquired pneumonia affects (more content not included)... [facility] 05-05-2024 History of Present illness Narrative Images from the original note were not included. HISTORY OF PRESENT ILLNESS: EST PT Milan Avery Rabia is an 73 y.o. @ male. (EST PT W/ ASHLEY) RECHECK (R) HIP ; HERE TO DISCUSS SURGICAL OPTIONS (PULMONARY CLEARANCE 04/22/24) XRAYS 03/01/24 IN EPIC NO MRI NO MDP / PREDNISONE NO CORTISONE INJ S/P PREHAB PHYSICAL THERAPY 03/11/24 @ [facility] NO PAIN MGMT PREVIOUS LUMBAR SX ~7 YRS ; DR RAMIREZ RECENT A1C 09/11/23 - 5.1% CONTINUES TO HAVE CONSTANT DISCOMFORT ; WORSE WITH ACTIVITY / MOVEMENT / TURNING IN BED / DIFFICULTY GETTING IN & OUT OF CAR - PAIN IS MOSTLY LATERAL W/ RADIATING PAIN DOWN TO HIS FOOT - NUMBNESS IN HIS FEET. NOTES LIMITED ROM ; SOME WEAKNESS - USING CANE TO AMBULATE. TAKING TYLENOL PRN. ALLERGIES: Allergies Allergen Reactions Iodinated Contrast Media Anaphylaxis and Hives Other Reaction(s): Swelling of Lip/Tongue/Throat, Unknown Inositol Other Reaction(s): Unknown Iodine Other Reaction(s): Unknown Meloxicam Other Reaction(s): Unknown Shellfish-Derived Products Other Reaction(s): Unknown Inositol Niacinate Rash Niacin Rash HOME MEDICATIONS: Current Outpatient Medications Medication Instructions albuterol HFA 90 mcg/act inhaler 1 puff, Inhalation, Every 4 hours PRN albuterol 2.5 mg, Nebulization, Every 6 hours PRN aspirin 81 mg, Oral, Daily atenolol (TENORMIN) 50 mg, Oral, 2 times daily atorvastatin (LIPITOR) 40 mg, Oral, Daily cetirizine (ZYRTEC) 10 mg, Oral, Daily PRN cholecalciferol (VITAMIN D-3) 2,000 Units, Oral, Daily famotidine (Pepcid) 20 MG tablet TAKE 1 TABLET BY MOUTH TWICE A DAY NEEDED FOR GERD SYMPTOMS Fish Oil 1,000 mg, Oral, Daily fluticasone (Flonase) 50 MCG/ACT nasal spray 2 sprays, Each Nostril, Daily, Shake gently. Before first use, prime pump. After use, clean tip and replace cap. furosemide (LASIX) 20 mg, Oral, Daily glipiZIDE (GLUCOTROL) 2.5 mg, Oral, Every 24 hours imipramine (TOFRANIL) 50 mg, Oral, 2 times daily irbesartan (AVAPRO) 75 mg, Oral, Nightly losartan (Cozaar) 100 MG tablet Every 24 hours metFORMIN (GLUCOPHAGE) 500 mg, Oral, 2 times daily with meals rOPINIRole (REQUIP) 0.5 mg, Oral, 2 times daily tamsulosin (FLOMAX) 0.4 mg, Oral, Daily terazosin (HYTRIN) 2 mg, Oral, Nightly tiotropium-olodaterol (Stiolto Respimat) 2.5-2.5 MCG/ACT aerosol solution inhaler 2 Inhalation , Inhalation, Daily PHYSICAL EXAM: Hip Musculoskeletal Exam Gait Antalgic: right Limp: right Trendelenburg: right Abductor lurch: right Circumduction: right Assistive device: cane Inspection Leg length disparity: left greater than right Right Erythema: none Ecchymosis: none Edema: none Deformity: none Previous incision: no previous incision Palpation Right Increased warmth: none Tenderness: present Greater trochanteric region pain: moderate Pubic rami pain: none Lower lumbar region pain: none Range of Motion Right Active ROM: abnormal. Passive ROM: abnormal. Active extension: 10. Passive extension: 5. Active flexion: 40. Passive flexion: 40. Active internal rotation: 5. Passive internal rotation: 10. Active external rotation: 10. Passive external rotation: 15. Active adduction: 10. Passive adduction: 15. Active abduction: 10. Passive abduction: 15. Strength Right Extension: 5/5. Flexion: 5/5. Internal rotation: 5/5. External rotation: 5/5. Adduction: 5/5. Abduction: 5/5. Neurovascular Right Right hip neurovascular exam is normal. Sensation: sural, saphenous, tibial, superficial peroneal and deep peroneal Dorsalis pedis: 2+ Posterior tibial: 2+ Special Tests Right Log roll test: positive Impingement test: positive Trendelenburg test: positive Internal rotation: positive External rotation: positive Vitals: There is no height or weight on file to calculate BMI. Tobacco Use: Medium Risk (05/05/2024) Patient History Smoking Tobacco Use: Former Smokeless Tobacco Use: Never Passive Exposure: Not on file Alcohol Use: Not on file IMAGING: Procedures No orders of the defined types were placed in this encounter. ASSESSMENT: ICD-10-CM 1. Arthritis of right hip M16.11 PLAN: We have answered all the patients questions and explained the patients condition, decision making and plan including the risks and benefits associated with said plan in layman''s terms in a language the patient could understand easily. If patient''s symptoms significantly worsen and they cannot get a hold of us or their family physician, we have recommended that the patient proceed to the nearest emergency department (room). Dr. Parks obtained history and examined the patient, I am acting as scribe for Dr. Parks/kathrine, PLAN: We have reviewed prior (R) hip xrays. After examination of his right hip today we have discussed both surgical and nonsurgical intervention, with the risks / benefits of both. Patient is requesting a (R) BEN as the pain is affecting his ADL's - unable to ambulate prolong period of time. Patient is understanding he is at an increased risk of infection secondary to pannus. We have discussed his HEP and restrictions and will see him back on the day of sx. Surgery - (R) BEN We have discussed both surgical and nonsurgical treatment options with the patient at length and the risks and benefits associated with both. The patient is requesting surgical intervention because they have not responded to outpatient treatment options including but not limited to rest ice, and home exercise program. Pain and decreased range of motion are affecting the patient''s ability to sleep and activities of daily living and we have recommended surgical intervention. We recommended surgery in the form of a total hip arthroplasty. Factors including the patient's age and longevity of prosthesis, usual postoperative course, and possible need for revision in the future, and leg length inequality postoperatively were discussed at length. We have discussed with the patient that this is a major orthopedic procedure. We discussed that the patient may require more than the average 30 MED limited and may require greater than 7 days narcotic treatment postoperatively. Therefore, patient's narcotic usage will be tailored on an individual basis. If this patient at the time of surgery has any of the following: Morbidities including but not limited to history of falling, cognitive impairment, BMI greater than 30, end-stage renal disease, respiratory failure, heart failure, kidney failure, liver failure, diabetes, cardiac event in the last year, sleep apnea, disorder, excessive tobacco use, if at the time of surgery the patient is greater than 80 years old, or the patient requires discharge to a retirement facility, the patient may require to have additional inpatient hospital stay days following the surgery. Physical therapy is contraindicated in this patient''s case because of the yjjq-wv-fxog articulation of the patient's hip. Tulio Parks D.O. documented in this encounter [facility] 04-27-2024 Telephone encounter Note Pt called and scheduled appt for RT hip eval with Dr Parks for this sx. Appt made [facility] 04-27-2024 Miscellaneous Notes Pt called and scheduled appt for RT hip eval with Dr Parks for this sx. Appt made Sergio Kelly pt needs an appt with Dr Parks if he would like to continue to have RT BEN sx. I called pt and left vm to call our office. Pt stopped in to [place] office inquiring about the letter he got regarding Dr Ramirez and if he he will be able to do his sx still? He know it took a long time for his clearance to come in. His call back is [phone] Baez called had questions about the surgery. Dr Baez is only in office at [facility] 2 days a week. Her number is [phone]. LM that we are requiring clearance for patient to have a general anesthesia for RT BEN documented in this encounter [facility] 04-26-2024 Telephone encounter Note Per Leticia pt needs an appt with Dr Parks if he would like to continue to have RT BEN sx. I called pt and left vm to call our office. [facility] 04-26-2024 Telephone encounter Note Pt stopped in to [place] office inquiring about the letter he got regarding Dr Ramirez and if he he will be able to do his sx still? He know it took a long time for his clearance to come in. His call back is [phone] [facility] 04-15-2024 Note Patient Education BMI for Adults Body mass index (BMI) is a number found using a person's weight and height. BMI can help tell how much of a person's weight is made up of fat. BMI does not measure body fat directly. It is used instead of tests that directly measure body fat, which can be difficult and expensive. What are BMI measurements used for? BMI is useful to: ??? Find out if your weight puts you at higher risk for medical problems. ??? Help recommend changes, such as in diet and exercise. This can help you reach a healthy weight. BMI screening can be done again to see if these changes are working. How is BMI calculated? Your height and weight are measured. The BMI is found from those numbers. This can be done with [place] or metric measurements. Note that charts and online BMI calculators are available to help you find your BMI quickly and easily without doing these calculations. To calculate your BMI in [place] measurements: 1. Measure your weight in pounds (lb). 2. Multiply the number of pounds by 703. ??? So, for an adult who weighs 150 lb, multiply that number by 703: 150 x 703, which equals 105,450. 3. Measure your height in inches. Then multiply that number by itself to get a measurement called inches squared. ??? So, for an adult who is 70 inches tall, the inches squared measurement is 70 inches x 70 inches, which equals 4,900 inches squared. 4. Divide the total from step 2 (number of lb x 703) by the total from step 3 (inches squared): 105,450 ? 4,900 = 21.5. This is your BMI. To calculate your BMI in metric measurements: 1. Measure your weight in kilograms (kg). ??? For this example, the weight is 70 kg. 2. Measure your height in meters (m). Then multiply that number by itself to get a measurement called meters squared. ??? So, for an adult who is 1.75 m tall, the meters squared measurement is 1.75 m x 1.75 m, which equals 3.1 meters squared. 3. Divide the number of kilograms (your weight) by the meters squared number. In this example: 70 ? 3.1 = 22.6. This is your BMI. What do the results mean? BMI charts are used to see if you are underweight, normal weight, overweight, or obese. The following guidelines will be used: ??? Underweight: BMI less than 18.5. ??? Normal weight: BMI between 18.5 and 24.9. ??? Overweight: BMI between 25 and 29.9. ??? Obese: BMI of 30 or above. BMI is a tool and cannot diagnose a condition. Talk with your health care provider about what your BMI means for you. Keep these notes in mind: ??? Weight includes fat and muscle. Someone with a muscular build, such as an athlete, may have a BMI that is higher than 24.9. In cases like these, BMI is not a correct measure of body fat. ??? If you have a BMI of 25 or higher, your provider may need to do more testing to find out if excess body fat is the cause. ??? BMI is measured the same way for males and females. Females usually have more body fat than males of the same height and weight. Where to find more information For more information about BMI, including tools to quickly find your BMI, go to: ??? Centers for Disease Control and Prevention: cdc.gov ??? [place] [employer] Association: heart.org ??? National Heart, Lung, and [employer] [place]: nhlbi.nih.gov This information is not intended to replace advice given to you by your health care provider. Make sure you discuss any questions you have with your health care provider. Document Revised: 02/27/2023 Document Reviewed: 02/20/2023 Elsevier Patient Education ? 2023 [employer]. Nutrition BMI for Adults Body mass index (BMI) is a number found using a person's weight and height. BMI can help tell how much of a person's weight is made up of fat. BMI does not measure body fat directly. It is used instead of tests that directly measure body fat, which can be difficult and expensive. What are BMI measurements used for? BMI is useful to: ??? Find out if your weight puts you at higher risk for medical problems. ??? Help recommend changes, such as in diet and exercise. This can help you reach a healthy weight. BMI screening can be done again to see if these changes are working. How is BMI calculated? Your height and weight are measured. The BMI is found from those numbers. This can be done with U.S. or metric measurements. Note that charts and online BMI calculators are available to help you find your BMI quickly and easily without doing these calculations. To calculate your BMI in U.S. measurements: 1. Measure your weight in pounds (lb). 2. Multiply the number of pounds by 703. ??? So, for an adult who weighs 150 lb, multiply that number by 703: 150 x 703, which equals 105,450. 3. Measure your height in inches. Then multiply that number by itself to get a measurement called inches squared. ??? So, for an adult who is 70 inches tall, the inches squared measurement is 70 inches x 70 inches, which equals 4,900 inches squared. 4. Divide the (more content not included)... [facility] 03-08-2024 Telephone encounter Note Shady from Dr Baez called had questions about the surgery. Dr Baez is only in office at [facility] 2 days a week. Her number is [phone]. LM that we are requiring clearance for patient to have a general anesthesia for RT [facility] Work Phone: 03-02-2024 History of Present illness Narrative Images from the original note were not included. HISTORY OF PRESENT ILLNESS: Milan Camarillo is an 73 y.o. @ male. Chief complaint RT hip pain RT Hip: here to discuss options, saw Cynthia 03/01. PREHAB sched for 03/10 Last A1c 5.1 on 09/11/23, sees pulmonary for COPD/MARQUITA He has had RT hip pain since 5 years (2018) or more, became worse after being stirrups for prostate cancer treatment. Pain has been getting worse the past month, no injury. Pain over lateral hip and in the groin. Pain wakes him at night. He is unable to bend over and put his shoe on or his sock on due to the pain. He is unable to cross his leg on the right. Notes his hip gives out on him often, but he catches himself. Limited ROM. Pain at rest 7/10. Pain at worst 10/10 with certain movements and with prolonged walking. Admits N/T B/L feet, has had this for years. Uses a cane at home. Denies locking/catching. Has tried TYL, w/o relief. Has tried ice, heat and OTC cream w/o relief. He has tried aleve/motrin without relief. Has done aquatic therapy in [place] for his back, no relief. He fx his back in the past and has had LBP since. Has had low back injections, does not help his hip. TX: PT last year, TYL, ice, heat, OTC creams, XR Dust[facility] 03/01/24, motrin/aleve MEDICATION: Current Outpatient Medications on File Prior to Visit Medication Sig Dispense Refill albuterol (2.5 MG/3ML) 0.083% nebulizer solution Take 2.5 mg by nebulization every 6 (six) hours if needed. albuterol HFA 90 mcg/act inhaler Inhale 1 puff every 4 (four) hours if needed. aspirin 81 MG EC tablet Take 81 mg by mouth in the morning. atenolol (Tenormin) 50 MG tablet Take 50 mg by mouth in the morning and 50 mg before bedtime. atorvastatin (Lipitor) 40 MG tablet Take 40 mg by mouth in the morning. cetirizine (ZyrTEC) 10 MG tablet Take 1 tablet (10 mg) by mouth Daily as needed for allergies. 30 tablet 11 cholecalciferol (Vitamin D-3) 50 MCG (2000 UT) tablet Take 2,000 Units by mouth in the morning. famotidine (Pepcid) 20 MG tablet TAKE 1 TABLET BY MOUTH TWICE A DAY NEEDED FOR GERD SYMPTOMS fluticasone (Flonase) 50 MCG/ACT nasal spray Administer 2 sprays into each nostril in the morning. Shake gently. Before first use, prime pump. After use, clean tip and replace cap.. 16 g 11 furosemide (Lasix) 20 MG tablet Take 20 mg by mouth in the morning. glipiZIDE (Glucotrol) 5 MG tablet Take 2.5 mg by mouth 1 (one) time each day at the same time. imipramine (Tofranil) 50 MG tablet Take 50 mg by mouth in the morning and 50 mg before bedtime. irbesartan (Avapro) 75 MG tablet Take 75 mg by mouth at bedtime. losartan (Cozaar) 100 MG tablet 1 (one) time each day at the same time. metFORMIN (Glucophage) 500 MG tablet Take 500 mg by mouth in the morning and 500 mg in the evening. Take with meals. [place]anger-3 Fatty Acids (Fish Oil) 1000 MG capsule delayed-release Take 1,000 mg by mouth in the morning. rOPINIRole (Requip) 0.5 MG tablet Take 0.5 mg by mouth in the morning and 0.5 mg before bedtime. tamsulosin (Flomax) 0.4 MG 24 hr capsule Take 0.4 mg by mouth in the morning. terazosin (Hytrin) 2 MG capsule Take 2 mg by mouth at bedtime. tiotropium-olodaterol (Stiolto Respimat) 2.5-2.5 MCG/ACT aerosol solution inhaler Inhale 2 Inhalation in the morning. No current facility-administered medications on file prior to visit. MEDICAL HISTORY: Past Medical History: Diagnosis Date Anxiety BPH (benign prostatic hyperplasia) Compression fracture of cervical spine, Left COPD (chronic obstructive pulmonary disease) ([facility]/HCC) Depression ([facility]) DM (diabetes mellitus) ([facility]/HCC) History of prostate cancer HLD (hyperlipidemia) ([facility]/HCC) HTN (hypertension) ([facility]/HCC) Hx of pyelonephritis MARQUITA on CPAP Prostate CA ([facility]) ALLERGIES: Allergies Allergen Reactions Iodinated Contrast Media Anaphylaxis and Hives Other Reaction(s): Swelling of Lip/Tongue/Throat, Unknown Inositol Other Reaction(s): Unknown Iodine Other Reaction(s): Unknown Meloxicam Other Reaction(s): Unknown Shellfish-Derived Products Other Reaction(s): Unknown Inositol Niacinate Rash Niacin Rash VITALS: Visit Vitals Smoking Status Former PHYSICAL EXAM: Ortho Exam RIGHT HIP ROM 0 IR and 5 ER Unable to cross leg Difficulty standing, unable to stand erect Skin intact RT leg shorter than LT Strength 5/5 IMAGING: March 01, 2024 x-rays AP pelvis and lateral of the right hip demonstrate wxfb-[id number] in the right hip joint as well as marked narrowing of the left hip joint. Subchondral sclerosis subchondral cyst and osteophyte formation is noted on the right side. Impressions advanced osteoarthritis of the right hip an incidental finding of osteoarthritis of the left hip Omar Ramirez D.O. ASSESSMENT: ICD-10-CM 1. Right hip pain M25.551 2. Arthritis of right hip M16.11 PLAN: I explained the diagnosis and reviewed treatment options including injections, total hip replacement. I discussed risks/benefits of each and chances for success/ failure. Discussion included but was not limited to the risk of infection, blood clot, failure to improve and need for additional surgery. The patient was advised that surgery is not likely to make them pain free. I answered all of the patients questions. He will need pulmonary clearance, follow up after appointment. Dr. Ramirez obtained history and examined the patient, I am acting as scribe for Dr. Ramirez/sanjay Ramirez D.O. documented in this encounter [facility] 03-01-2024 History of Present illness Narrative Images from the original note were not included. Subjective Patient ID: Milan Camarillo is a 73 y.o. male. RT Hip He has had RT hip pain since 5 years (2018) or more, he was in [facility] because he had prostate cancer, and started having RT hip pain. Pain has been getting worse the past month no injury. Has done aquatic therapy in [place] for his back, no relief. Notes he usually uses a cane. Pain diffuse in hip, pain is constant. Pain wakes him at night. He is unable to bend over and put his shoe on or his sock on due to the pain. He is unable to cross his leg on the right. Notes his hip gives out on him often, but he catches himself. Limited ROM. Pain is anterior (groin) and lateral. Pain at rest 7/10. Pain at worst 10/10 with certain movements and with prolonged walking. Denies N/T in the hip, notes both of his feet are constantly numb, has had this for years. Denies cracking/popping. Denies locking/catching. Has tried TYL, w/o relief. Has tried ice, heat and OTC cream w/o relief. He has tried aleve/motrin without relief He fx his back in the past and has had LBP since. Has had low back injections does not help his hip. TX: TYL, ice, heat, OTC creams, XR [facility] 03/01/24, motrin/aleve Here with his ex Kimberly. Objective Right Hip Exam Muscle Strength Adduction: 4-/5 Hip Musculoskeletal Exam Gait Limp: right Palpation Right Tenderness: present (anterior) Greater trochanteric region pain: none Lower lumbar region pain: none Range of Motion Right Active ROM: pain. Range of motion additional comments: 10 ER, 0 IR pelvis tilt, pain with ROM of the left and right hip Strength Right Flexion: 4-/5. Flexion is affected by pain. Adduction: 4-/5. Abduction: 4-/5. Special Tests Right Trendelenburg test: negative XR hip right 2 or 3 views Imaging Result: March 01, 2024 x-rays AP pelvis and lateral of the right hip demonstrate kjwu-fa-mziy in the right hip joint as well as marked narrowing of the left hip joint. Subchondral sclerosis subchondral cyst and osteophyte formation is noted on the right side. Impressions advanced osteoarthritis of the right hip an incidental finding of osteoarthritis of the left hip Omar Ramirez D.O. Assessment/Plan Encounter Diagnoses: ICD-10-CM 1. Right hip pain M25.551 XR hip right 2 or 3 views 2. Arthritis of right hip M16.11 Ambulatory referral to Physical Therapy Discussion of options, he notes he is leaning towards surgery, will have him f/U with dr. Ramirez to discuss options, will send to prehab in addition, activities as tolerated documented in this encounter [facility] 01-29-2024 Hospital Discharge instructions Patient Education 01/29/2024 10:40:10 Benign Prostatic Hyperplasia Benign Prostatic Hyperplasia Benign prostatic hyperplasia (BPH) is an enlarged prostate gland that is caused by the normal aging process. The prostate may get bigger as a man gets older. The condition is not caused by cancer. The prostate is a walnut-sized gland that is involved in the production of semen. It is located in front of the rectum and below the bladder. The bladder stores urine. The urethra carries stored urine out of the body. An enlarged prostate can press on the urethra. This can make it harder to pass urine. The buildup of urine in the bladder can cause infection. Back pressure and infection may progress to bladder damage and kidney (renal) failure. What are the causes? This condition is part of the normal aging process. However, not all men develop problems from this condition. If the prostate enlarges away from the urethra, urine flow will not be blocked. If it enlarges toward the urethra and compresses it, there will be problems passing urine. What increases the risk? This condition is more likely to develop in men older than 50 years. What are the signs or symptoms? Symptoms of this condition include: Getting up often during the night to urinate. Needing to urinate frequently during the day. Difficulty starting urine flow. Decrease in size and strength of your urine stream. Leaking (dribbling) after urinating. Inability to pass urine. This needs immediate treatment. Inability to completely empty your bladder. Pain when you pass urine. This is more common if there is also an infection. Urinary tract infection (UTI). How is this diagnosed? This condition is diagnosed based on your medical history, a physical exam, and your symptoms. Tests will also be done, such as: A post-void bladder scan. This measures any amount of urine that may remain in your bladder after you finish urinating. A digital rectal exam. In a rectal exam, your health care provider checks your prostate by putting a lubricated, gloved finger into your rectum to feel the back of your prostate gland. This exam detects the size of your gland and any abnormal lumps or growths. An exam of your urine (urinalysis). A prostate specific antigen (PSA) screening. This is a blood test used to screen for prostate cancer. An ultrasound. This test uses sound waves to electronically produce a picture of your prostate gland. Your health care provider may refer you to a specialist in kidney and prostate diseases (urologist). How is this treated? Once symptoms begin, your health care provider will monitor your condition (active surveillance or watchful waiting). Treatment for this condition will depend on the severity of your condition. Treatment may include: Observation and yearly exams. This may be the only treatment needed if your condition and symptoms are mild. Medicines to relieve your symptoms, including: ?Medicines to shrink the prostate. ?Medicines to relax the muscle of the prostate. Surgery in severe cases. Surgery may include: ?Prostatectomy. In this procedure, the prostate tissue is removed completely through an open incision or with a laparoscope or robotics. ?Transurethral resection of the prostate (TURP). In this procedure, a tool is inserted through the opening at the tip of the penis (urethra). It is used to cut away tissue of the inner core of the prostate. The pieces are removed through the same opening of the penis. This removes the blockage. ?Transurethral incision (TUIP). In this procedure, small cuts are made in the prostate. This lessens the prostate's pressure on the urethra. ?Transurethral microwave thermotherapy (TUMT). This procedure uses microwaves to create heat. The heat destroys and removes a small amount of prostate tissue. ?Transurethral needle ablation (TUNA). This procedure uses radio frequencies to destroy and remove a small amount of prostate tissue. ?Interstitial laser coagulation (ILC). This procedure uses a laser to destroy and remove a small amount of prostate tissue. ?Transurethral electrovaporization (TUVP). This procedure uses electrodes to destroy and remove a small amount of prostate tissue. ?Prostatic urethral lift. This procedure inserts an implant to push the lobes of the prostate away from the urethra. Follow these instructions at home: Take jrwu-xif-faujokx and prescription medicines only as told by your health care provider. Monitor your symptoms for any changes. Contact your health care provider with any changes. Avoid drinking large amounts of liquid before going to bed or out in public. Avoid or reduce how much caffeine or alcohol you drink. Give yourself time when you urinate. Keep all follow-up visits. This is important. Contact a health care provider if: You have unexplained back pain. Your symptoms do not get better with treatment. You develop side effects from the medicine you are taking. Your urine becomes very dark or has a bad smell. Your lower abdomen becomes distended and you have trouble passing urine. Get help right away if: You have a fever or chills. You suddenly cannot urinate. You feel light-headed or very dizzy, or you faint. There are large amounts of blood or clots in your urine. Your urinary problems become hard to manage. You develop moderate to severe low back or flank pain. The flank is the side of your body between the ribs and the hip. These symptoms may be an emergency. Get help right away. Call 911. Do not wait to see if the symptoms will go away. Do not drive yourself to the hospital. Summary Benign prostatic hyperplasia (BPH) is an enlarged prostate that is caused by the normal aging process. It is not caused by cancer. An enlarged prostate can press on the urethra. This can make it hard to pass urine. This condition is more likely to develop in men older than 50 years. Get help right away if you suddenly cannot urinate. This information is not intended to replace advice given to you by your health care provider. Make sure you discuss any questions you have with your health care provider. Document Revised: 12/26/2021 Document Reviewed: 12/26/2021 [employer] Patient Education 2022 [employer] 01/29/2024 10:40:10 Prostatitis Prostatitis Prostatitis is swelling or inflammation of the prostate gland, also called the prostate. This gland is about 1.5 inches wide and 1 inch high, and it is involved in making semen. The prostate is located below a man's bladder, in front of the rectum. There are four types of prostatitis: Chronic prostatitis (CP), also called chronic pelvic pain syndrome (CPPS). This is the most common type of prostatitis. It is associated with increased muscle tone in the area between the hip bones (pelvic area), around the prostate. This type is also known as a pelvic floor disorder. Chronic bacterial prostatitis. This type usually results from an acute bacterial infection in the prostate gland that keeps coming back or has not been treated properly. The symptoms are less severe than those caused by acute bacterial prostatitis, which lasts a shorter time. Asymptomatic inflammatory prostatitis. This type does not have symptoms and does not need treatment. This is diagnosed when tests are done for other disorders of the urinary tract or reproductive tract. Acute bacterial prostatitis. This type starts quickly and results from an acute bacterial infection in the prostate gland. It is usually associated with a bladder infection, high fever, and chills. This is the least common type of prostatitis. What are the causes? Bacterial prostatitis is caused by an infection from bacteria. Chronic nonbacterial prostatitis may be caused by: Factors related to the nervous system. This system includes thebrain, spinal cord, and nerves. An autoimmune response. This happens when the body's disease-fighting system attacks healthy tissue in the body by mistake. Psychological factors. These have to do with how the mind works. The causes of the other types of prostatitis are usually not known. What are the signs or symptoms? Symptoms of this condition depend on the type of prostatitis you have. Acute bacterial prostatitis Symptoms may include: Pain or burning during urination. Frequent and sudden urges to urinate. Trouble starting to urinate. Fever. Chills. Pain in your muscles or joints, lower back, or lower abdomen. Other types of prostatitis Symptoms may include: Sudden urges to urinate, or urinating often. Trouble starting to urinate. Weak urine stream. Dribbling after urination. Discharge coming from the penis. Pain in the testicles, the penis, or the tip of the penis. Pain in the area in front of the rectum and below the scrotum (perineum). Pain when ejaculating. How is this diagnosed? This condition may be diagnosed based on: A physical and medical exam. A digital rectal exam. For this, the health care provider may use a finger to feel the prostate. A urine test to check for bacteria. A semen sample or blood tests. Ultrasound. Urodynamic tests to check how your body handles urine. Cystoscopy to look inside your bladder or inside the part of your body that drains urine from the bladder (urethra). How is this treated? Treatment for this condition depends on the type of prostatitis. Treatment may involve: Medicines to relieve pain or inflammation, or to help relax your muscles. Physical therapy. Heat therapy. Biofeedback. These techniques help you control certain body functions. Relaxation exercises. Antibiotic medicine, if your condition is caused by bacteria. Sitz baths. These warm water baths help to relax your pelvic floor muscles, which helps to relieve pressure on the prostate. Follow these instructions at home: Medicines Take rxwc-xaq-lsoizwo and prescription medicines only as told by your health care provider. If you were prescribed an antibiotic medicine, take it as told by your health care provider. Do not stop using the antibiotic even if you start to feel better. Managing pain and swelling Take sitz baths as directed by your health care provider. For a sitz bath, sit in warm water that is deep enough to cover your hips and buttocks. If directed, apply heat to the affected area as often as told by your health care provider. Use the heat source that your health care provider recommends, such as a moist heat pack or a heating pad. ?Place a towel between your skin and the heat source. ?Leave the heat on for 20 30 minutes. ?Remove the heat if your skin turns bright red. This is especially important if you are unable to feel pain, heat, or cold. You may have a greater risk of getting burned. General instructions Do exercises as told by your health care provider, if you were prescribed physical therapy, biofeedback, or relaxation exercises. Keep all follow-up visits as told by your health care provider. This is important. Where to find more information [employer] [place] [employer] [place] of Diabetes and Digestive and Kidney Diseases: https://www.niddk.nih.gov Contact a health care provider if: Your symptoms get worse. You have a fever. Get help right away if: You have chills. You feel light-headed or feel like you may faint. You cannot urinate. You have blood or blood clots in your urine. Summary Prostatitis is swelling or inflammation of the prostate gland. Treatment for this condition depends on the type of prostatitis. Take girt-yoq-frsocfi and prescription medicines only as told by your health care provider. Get help right away of you have chills, feel light-headed, feel like you may faint, cannot urinate, or have blood or blood clots in your urine. This information is not intended to replace advice given to you by your health care provider. Make sure you discuss any questions you have with your health care provider. Document Revised: 07/14/2020 Document Reviewed: 07/14/2020 [employer] Patient Education 2022 [employer]. Follow Up Care 09/15/2023 10:02:37 With:ANNABELLE HATFIELD PA-C, URL Address: [address] [place] [address] When: Unknown Comments:6 mos f/up [facility] 01-29-2024 Note Patient Education Infectious Disease Prostatitis Prostatitis is swelling or inflammation of the prostate gland, also called the prostate. This gland is about 1.5 inches wide and 1 inch high, and it is involved in making semen. The prostate is located below a man's bladder, in front of the rectum. There are four types of prostatitis: ? Chronic prostatitis (CP), also called chronic pelvic pain syndrome (CPPS). This is the most common type of prostatitis. It is associated with increased muscle tone in the area between the hip bones (pelvic area), around the prostate. This type is also known as a pelvic floor disorder. ? Chronic bacterial prostatitis. This type usually results from an acute bacterial infection in the prostate gland that keeps coming back or has not been treated properly. The symptoms are less severe than those caused by acute bacterial prostatitis, which lasts a shorter time. ? Asymptomatic inflammatory prostatitis. This type does not have symptoms and does not need treatment. This is diagnosed when tests are done for other disorders of the urinary tract or reproductive tract. ? Acute bacterial prostatitis. This type starts quickly and results from an acute bacterial infection in the prostate gland. It is usually associated with a bladder infection, high fever, and chills. This is the least common type of prostatitis. What are the causes? Bacterial prostatitis is caused by an infection from bacteria. Chronic nonbacterial prostatitis may be caused by: ? Factors related to the nervous system. This system includes thebrain, spinal cord, and nerves. ? An autoimmune response. This happens when the body's disease-fighting system attacks healthy tissue in the body by mistake. ? Psychological factors. These have to do with how the mind works. The causes of the other types of prostatitis are usually not known. What are the signs or symptoms? Symptoms of this condition depend on the type of prostatitis you have. Acute bacterial prostatitis Symptoms may include: ? Pain or burning during urination. ? Frequent and sudden urges to urinate. ? Trouble starting to urinate. ? Fever. ? Chills. ? Pain in your muscles or joints, lower back, or lower abdomen. Other types of prostatitis Symptoms may include: ? Sudden urges to urinate, or urinating often. ? Trouble starting to urinate. ? Weak urine stream. ? Dribbling after urination. ? Discharge coming from the penis. ? Pain in the testicles, the penis, or the tip of the penis. ? Pain in the area in front of the rectum and below the scrotum (perineum). ? Pain when ejaculating. How is this diagnosed? This condition may be diagnosed based on: ? A physical and medical exam. ? A digital rectal exam. For this, the health care provider may use a finger to feel the prostate. ? A urine test to check for bacteria. ? A semen sample or blood tests. ? Ultrasound. ? Urodynamic tests to check how your body handles urine. ? Cystoscopy to look inside your bladder or inside the part of your body that drains urine from the bladder (urethra). How is this treated? Treatment for this condition depends on the type of prostatitis. Treatment may involve: ? Medicines to relieve pain or inflammation, or to help relax your muscles. ? Physical therapy. ? Heat therapy. ? Biofeedback. These techniques help you control certain body functions. ? Relaxation exercises. ? Antibiotic medicine, if your condition is caused by bacteria. ? Sitz baths. These warm water baths help to relax your pelvic floor muscles, which helps to relieve pressure on the prostate. Follow these instructions at home: Medicines ? Take jnzi-ela-slrucbm and prescription medicines only as told by your health care provider. ? If you were prescribed an antibiotic medicine, take it as told by your health care provider. Do not stop using the antibiotic even if you start to feel better. Managing pain and swelling ? Take sitz baths as directed by your health care provider. For a sitz bath, sit in warm water that is deep enough to cover your hips and buttocks. ? If directed, apply heat to the affected area as often as told by your health care provider. Use the heat source that your health care provider recommends, such as a moist heat pack or a heating pad. ? Place a towel between your skin and the heat source. ? Leave the heat on for 20?30 minutes. ? Remove the heat if your skin turns bright red. This is especially important if you are unable to feel pain, heat, or cold. You may have a greater risk of getting burned. General instructions ? Do exercises as told by your health care provider, if you were prescribed physical therapy, biofeedback, or relaxation exercises. ? Keep all follow-up visits as told by your health care provider. This is important. Where to find more information ? [employer] [place] [employer] a (more content not included)... [facility] 01-15-2024 Note Patient Education Nutrition BMI for Adults What is BMI? Body mass index (BMI) is a number that is calculated from a person's weight and height. BMI can help estimate how much of a person's weight is composed of fat. BMI does not measure body fat directly. Rather, it is an alternative to procedures that directly measure body fat, which can be difficult and expensive. BMI can help identify people who may be at higher risk for certain medical problems. What are BMI measurements used for? BMI is used as a screening tool to identify possible weight problems. It helps determine whether a person is obese, overweight, a healthy weight, or underweight. BMI is useful for: ? Identifying a weight problem that may be related to a medical condition or may increase the risk for medical problems. ? Promoting changes, such as changes in diet and exercise, to help reach a healthy weight. BMI screening can be repeated to see if these changes are working. How is BMI calculated? BMI involves measuring your weight in relation to your height. Both height and weight are measured, and the BMI is calculated from those numbers. This can be done either in [place] ([place] or metric measurements. Note that charts and online BMI calculators are available to help you find your BMI quickly and easily without having to do these calculations yourself. To calculate your BMI in [place] ([place] measurements: 1. Measure your weight in pounds (lb). 2. Multiply the number of pounds by 703. ? For example, for a person who weighs 180 lb, multiply that number by 703, which equals 126,540. 3. Measure your height in inches. Then multiply that number by itself to get a measurement called inches squared. ? For example, for a person who is 70 inches tall, the inches squared measurement is 70 inches x 70 inches, which equals 4,900 inches squared. 4. Divide the total from step 2 (number of lb x 703) by the total from step 3 (inches squared): 126,540 ? 4,900 = 25.8. This is your BMI. To calculate your BMI in metric measurements: 1. Measure your weight in kilograms (kg). [...] 3.1 = 22.6. This is your BMI. What do the results mean? BMI charts are used to identify whether you are underweight, normal weight, overweight, or obese. The following guidelines will be used: ? Underweight: BMI less than 18.5. ? Normal weight: BMI between 18.5 and 24.9. ? Overweight: BMI between 25 and 29.9. ? Obese: BMI of 30 or above. Keep these notes in mind: ? Weight includes both fat and muscle, [...] the same way for men and women. Where to find more information For more information about BMI, including tools to quickly calculate your BMI, go to these websites: ? Centers for Disease Control and Prevention: www.cdc.gov ? [place] [employer] Association: www.heart.org ? National Heart, Lung, and [employer] [place]: www.nhlbi.nih.gov Summary ? Body mass index (BMI) is a number that is calculated from a person's weight and height. ? BMI may help estimate how much of a person's weight is composed of fat. BMI can help identify those who may be at higher risk for certain medical problems. ? BMI can be measured using [place]ian measurements or metric measurements. ? BMI charts are used to identify whether you are underweight, normal weight, overweight, or obese. This information is not intended to replace advice given to you by your health care provider. Make sure you discuss any questions you have with your health care provider. Document Revised: 03/01/2020 Document Reviewed: 01/07/2020 [employer] Patient Education ? 2022 [employer]. [facility] 12-30-2023 Note Patient Education ENT Cough, Adult A cough helps to clear your throat and lungs. A cough may be a sign of an illness or another medical condition. An acute cough may only last 2?3 weeks, while a chronic cough may last 8 or more weeks. Many things can cause a cough. They include: ? Germs (viruses or bacteria) that attack the airway. ? Breathing in things that bother (irritate) your lungs. ? Allergies. ? Asthma. ? Mucus that runs down the back of your throat (postnasal drip). ? Smoking. ? Acid backing up from the stomach into the tube that moves food from the mouth to the stomach (gastroesophageal reflux). ? Some medicines. ? Lung problems. ? Other medical conditions, such as heart failure or a blood clot in the lung (pulmonary embolism). Follow these instructions at home: Medicines ? Take krib-pxw-wayadqs and prescription medicines only as told by your doctor. ? Talk with your doctor before you take medicines that stop a cough (cough suppressants). Lifestyle ? Do not smoke, and try not to be around smoke. Do not use any products that contain nicotine or tobacco, such as cigarettes, e-cigarettes, and chewing tobacco. If you need help quitting, ask your doctor. ? Drink enough fluid to keep your pee (urine) pale yellow. ? Avoid caffeine. ? Do not drink alcohol if your doctor tells you not to drink. General instructions ? Watch for any changes in your cough. Tell your doctor about them. ? Always cover your mouth when you cough. ? Stay away from things that make you cough, such as perfume, candles, campfire smoke, or cleaning products. ? If the air is dry, use a cool mist vaporizer or humidifier in your home. ? If your cough is worse at night, try using extra pillows to raise your head up higher while you sleep. ? Rest as needed. ? Keep all follow-up visits as told by your doctor. This is important. Contact a doctor if: ? You have new symptoms. ? You cough up pus. ? Your cough does not get better after 2?3 weeks, or your cough gets worse. ? Cough medicine does not help your cough and you are not sleeping well. ? You have pain that gets worse or pain that is not helped with medicine. ? You have a fever. ? You are losing weight and you do not know why. ? You have night sweats. Get help right away if: ? You cough up blood. ? You have trouble breathing. ? Your heartbeat is very fast. These symptoms may be an emergency. Do not wait to see if the symptoms will go away. Get medical help right away. Call your local emergency services (911 in the [place] Do not drive yourself to the hospital. Summary ? A cough helps to clear your throat and lungs. Many things can cause a cough. ? Take oppp-bpm-cruwcmo and prescription medicines only as told by your doctor. ? Always cover your mouth when you cough. ? Contact a doctor if you have new symptoms or you have a cough that does not get better or gets worse. This information is not intended to replace advice given to you by your health care provider. Make sure you discuss any questions you have with your health care provider. Document Revised: 07/28/2020 Document Reviewed: 06/28/2019 [employer] Patient Education ? 2022 [employer]. [facility] 09-15-2023 Hospital Discharge instructions Patient Education 09/15/2023 09:57:41 Clean Intermittent Catheterization, Male Clean Intermittent Catheterization, Male Clean intermittent catheterization (CIC) is a procedure to remove urine from the bladder by placing a small, flexible tube (catheter) into the bladder though the urethra. The urethra is a tube in the body that carries urine from the bladder out of the body. CIC may be done when: You cannot completely empty your bladder on your own. This may be due to a blockage in the bladder or urethra. Your bladder leaks urine. This may happen when the muscles or nerves near the bladder are not working normally, so the bladder overflows. Your health care provider will show you how to perform CIC and will help you to become comfortable performing this procedure at home. Your health care provider will also help you to get the home care supplies that are needed for this procedure. Supplies needed: Germ-free (sterile), water-based lubricant. A container for urine collection. You may also use the toilet to dispose of urine from the catheter. A catheter. Your health care provider will determine the best size for you. ?Use this catheter size: Clean gloves. Soap and water. Towel. How to perform this procedure: Most people need CIC at least 4 times per day to adequately empty the bladder. Your health care provider will tell you how often you should perform CIC. Number of times per day to perform CIC: ____ To perform CIC, follow these steps: 1.Wash your hands with soap and water. If soap and water are not available, use hand high school admissions representative. 2.Clean your penis with soap and water. Dry the tip of your penis completely. 3.Prepare the supplies that you will use during the procedure. Open the catheter package and lubricant. 4.Get in a comfortable position. Possible positions include: Sitting on a toilet, a chair, or the edge of a bed. Standing near a toilet. Lying down with your head raised on pillows and your knees pointing to the ceiling. You may wish to place a waterproof mat or pad under you. 5.If you are using a urine collection container, position it between your legs. 6.Urinate, if you are able. 7.Put on gloves. 8.Apply lubricant to about 2 inches (5 cm) of the tip of the catheter. 9.Set the catheter down on a clean, dry surface within reach. 10.Gently stretch your penis out from your body. Pull back any skin that covers the end of your penis (foreskin). Clean the end of your penis with medicated sterile swabs as told by your health care provider. 11.Hold your penis upward at a 45 60 degree angle. This helps to straighten the urethra. 12.Slowly insert the lubricated catheter straight into your urethra until urine flows freely. This is usually about 6 8 inches (15 20 cm). 13.When urine starts to flow freely, insert the catheter 1 inch (3 cm) more. Allow urine to drain into the toilet or the urine collection container. 14.When urine stops flowing, slowly remove the catheter. 15.Note the color, amount, and odor of the urine. 16.Measure your urine and note the amount, if told by your health care provider. 17.Discard the urine in the toilet. 18.Clean your penis using soap and water. 19.Move the foreskin back in place, if applicable. 20.If you are using a single-use catheter, discard the catheter and supplies. 21.Wash your hands with soap and water. 22.If you are using a reusable catheter, follow package instructions about how to clean the catheter after each use. How often should I perform this procedure? Do CIC to empty your bladder every 4 6 hours or as often as told by your health care provider. If you have symptoms of too much urine in your bladder (overdistension) and you are not able to urinate, perform CIC. Symptoms of overdistension may include: ?Restlessness. ?Sweating or chills. ?Headache. ?Flushed or pale skin. ?Bloated lower abdomen. What are the risks? Generally, this is a safe procedure, however problems may occur, including: Infection. Injury to the urethra. Irritation of the urethra. Follow these instructions at home General instructions Drink enough fluid to keep your urine pale yellow. Dispose of a multiple use catheter when it becomes dry, brittle, or cloudy. This usually happens after you use the catheter for 1 week. Avoid caffeine. Caffeine may make you need to urinate more frequently and more urgently. When traveling, bring extra supplies with you in case of delays. Keep supplies with you in a place that you can access easily. If traveling by plane: ?Make sure that the lubricant in your carry-on bag is less than 3.4 ounces (100 mL). ?Use a single-use catheter. It may be difficult to clean a reusable catheter in a small bathroom. Take pxto-oit-fzvvvcl and prescription medicines only as told by your health care provider. Keep all follow-up visits as told by your health care provider. This is important. Contact a health care provider if you: Have difficulty performing CIC. Have urine leaking during CIC. Have: ?Dark or cloudy urine. ?Blood in your urine or in your catheter. ?A change in the smell of your urine or discharge. ?A burning feeling while you urinate. Feel nauseous or you vomit. Have pain in your abdomen, your back, or your sides below your ribs. Have swelling or redness around the opening of your urethra. Develop a rash or sores on your skin. Get help right away if you have: A fever. Symptoms that do not go away after 3 days. Symptoms that suddenly get worse. Severe pain. A decrease in the amount of urine that drains from your bladder. Summary Clean intermittent catheterization (CIC) is a procedure to remove urine from the bladder by placing a small, flexible tube (catheter) into the bladder though the urethra. Your health care provider will show you how to perform CIC and will help you to become comfortable performing this procedure at home. Most people need CIC at least 4 times per day to adequately empty the bladder. This information is not intended to replace advice given to you by your health care provider. Make sure you discuss any questions you have with your health care provider. Document Revised: 04/15/2022 Document Reviewed: 04/15/2022 Else[employer] Patient Education 2022 [employer] Follow Up Care 03/17/2023 09:53:55 With:ALLIE CHOPRA, Jeremy Avery, URL Address: [address] [place] [id number]- When: Unknown [facility] 05-06-2023 Evaluation note Encounter Date Diagnosis Assessment [...] changes in symptoms and/or problems with treatment [facility] Other 09-25-2023 Hospital Discharge instructions Patient Education [...] if anything looks unusual. Men with a znyejk-jgya-brdgdl risk for skin cancer may want to see a weight reduction specialist (director clinical pharmacology) for an annual body check. What are the benefits of screening? Cancer screening is done to look for cancer in the very early stages, before it spreads and becomesharder to treat and before you would start to notice symptoms. Finding cancer early improves the chances of successful treatment. It may save your life. Where to find more information [place] [employer] Society: www.cancer.org Centers for Disease Control and Prevention: www.cdc.gov National Cancer [place]: www.cancer.gov Contact a health care provider if: [...] provider. Document Revised: 11/05/2021 Document Reviewed: 05/05/2020 [employer] Patient Education 2022 [employer]. Follow Up Care 12/09/2022 10:37:49 With:ALLIE CHOPRA, Jeremy Avery, URL Address: [facility] [address] [place] [address]- [phone] When: Unknown [facility] Jaime 06-19-2023 Hospital Discharge instructions Patient [...] if anything looks unusual. Men with a ebgqwe-apdl-ddowyn risk for skin cancer may want to see a weight reduction specialist (director clinical pharmacology) for an annual body check. What are the benefits of screening? Cancer screening is done to look for cancer in the very early stages, before it spreads and becomesharder to treat and before you would start to notice symptoms. Finding cancer early improves the chances of successful treatment. It may save your life. Where to find more information [place] [employer]: www.cancer.org Centers for Disease Control and Prevention: www.cdc.gov National Cancer [place] [address] [place]: www.cancer.gov Contact a health care provider if: [...] provider. Document Revised: 11/05/2021 Document Reviewed: 05/05/2020 [employer] Patient Education 2022 [employer]. Follow Up Care 11/13/2022 13:35:16 With:ALLIE CHOPRA, Jeremy Avery, URL Address: [facility] [address], [place] [address]- When: Unknown [facility] 07-20-2022 NotePatient Outreach (UROLMN) MILAN CAMARILLO ([id number]) 1950 M Date Time Provider Department 01/09/22 [...] for genitourinary condition [Z13.89] Order(s):URINALYSIS, REFLEX MICROSCOPIC [[id number]] Order #: [id number] Prescriptions as of 01/14/2022 - acetaminophen (TYLENOL) [...] tablet 50 mg daily at bedtime. - Granger-3 Fatty Acids, FISH OIL, (FISH OIL) 360-1,200 [...] (FLONASE) 50 mcg/actuation nasal spray Use 1 [place] in each nostril once daily. Problem List [...] Obesity (BMI 30.0-34.9) [E66.9] Encounter Status:Closed by UiTVUSER on 01/14/22[facility] 01-09-2022 NoteHNO ID: [id number] Author: Jesus Ram MD Service: ? Author [...] continued fevers, and instructed to return [facility] for assessment and treatment. Found to [...] tablet 50 mg daily at bedtime. - [place]anger-3 Fatty Acids, FISH OIL, (FISH OIL) 360-1,200 [...] (FLONASE) 50 mcg/actuation nasal spray Use 1 [place] in each nostril once daily. No current [...] <0.13 04/02/2018 0.010 09/01/2017 (more content not included)...[facility]07-20-[facility] History of Present illness Narrative* Jesus Ram [...] with continued fevers, and [facility] for assessment and treatment. Found to [...] mg tablet 50 mg daily at bedtime. Granger-3 Fatty Acids, FISH OIL, (FISH OIL) 360-1,200 [...] (FLONASE) 50 mcg/actuation nasal spray Use 1 [place] in each nostril once daily. No current [...] need for ISC, [facility]. Received IV abx at that visit and discharged, had continued fevers,and instructed to return to [facility] ED for assessment and treatment. Found to [...] Signature: Jesus Ram MD documented [facility]22 NoteHNO ID: [id number] Author: Vale Dunn RRT Service: Respiratory Therapy Author Type: Registered Resp [...] 01, 2022 TIME: 4:54 PM PAGER/CONTACT #: [id number] [facility] Miscellaneous Notes* Telephone Encounter - Rubén Cruz APRN.PICU NURSE - 01/01/2022 6:[address] Okeefe talked with Milan Camarillo today and instructed him to come to ER. He is being admitted for suspected urosepsis. Dr. Ram is aware. Rubén Cruz APRN.CNP * Telephone Encounter - Rubén Cruz APRN.CNP - 01/01/2022 6:31 PM EDT ----- Message from Sarahy Morris Adm sent at 12/31/2021 4:39 PM EDT ----- Regarding: FW: Post op fever / Changed phone number Contact: * Telephone Encounter - Ruébn Cruz APRN.CNP - 12/31/2021 12:45 PM EDT Milan Camarillo had TURP with Dr. Ram on 12/21/2021, then postop visit with Vannesa on 12/25/2021 for Jaramillo removal. Finished 7 day course of Macrobid on 12/28/2021. Attempted to call Milan Camarillo to discuss symptoms. Left voicemail, requesting call back at [phone]. Rubén Cruz APRN.CNP * Telephone Encounter - [...] based on the smell. documented in [facility] encounterL[facility]07-[facility]-2022 Miscellaneous Notes* Telephone Encounter - Ryan Okeefe [...] I recommended that he come to the [facility] ED today. He expressed understanding and agreement with the plan. Ryan Okeefe Jr., MD Reconstructive Urology Fellow documented in this encounterLuther[facility] Hospital07-[facility]-2022 NoteHNO ID: [id number] Author: Vannesa Crump APRN.PICU NURSE Service: ? Author Type: Nurse Practitioner Type: [...] tablet 50 mg daily at bedtime. - Granger-3 Fatty Acids, FISH OIL, (FISH OIL) 360-1,200 [...] (FLONASE) 50 mcg/actuation nasal spray Use 1 [place] in each nostril once daily. No current [...] has ISC catheters i (more content not included)...[facility] 12-21-2021 NoteHNO ID: [id number] Author: Robyn Urbina APRN.AERIAL PHOTOGRAMMETRIST Service: ? 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 Author Type: Nurse Practitioner Type: Progress Notes Filed: 12/12/2021 6:30 PM Note Text: UROLOGY SURGICAL HANDP SERVICE DATE: 12/12/2021 SERVICE TIME: 2:25 PM REFERRING PROVIDER: Jesus Ram [address] [facility] [address] PCP: Catracho Jiménez MD GENDER: SUBJECTIVE CHIEF [...] hearing. Cardiovascular: No history of angina, CHF, DE, cardiac surgery of stents. Positive: Hypertension- on [...] on Rx Neurologic: No history of TIA's, INDUSTRIAL MILLWRIGHT tumor, impaired sensorium, hemiplegia or paraplegia No [...] (no units) Date Value 04/30/2021 Negative Specific [place], Ur (no units) Date Value 04/30/2021 1.005 Hemoglobin/Blood,Ur ( ) Date Value 04/30/2021 Negative pH, Urine (no units) Date Value 04/30/2021 5.5 Protein, Urine (no units) Date V (more content not included)...[facility]06-22-[facility]22 Instructions* Patient Instructions* Marcy Donahue APRN.CNP - 12/12/2021 3:00 PM EDT Dietary Restrictions: [...] the day of surgery. documented [facility] History of Present illness Narrative* Marcy Donahue APRN.CNP - 12/12/2021 2:20 PM EDT UROLOGY SURGICAL H&P SERVICE DATE: 12/12/2021 SERVICE TIME: 2:25 PM REFERRING PROVIDER: Jesus Ram [address] [facility] [address] PCP: Catracho Jiménez MD GENDER: SUBJECTIVE CHIEF [...] hearing. Cardiovascular: No history of angina, CHF, DE, cardiac surgery of stents. Positive: Hypertension- on [...] on Rx Neurologic: No history of TIA's, INDUSTRIAL MILLWRIGHT tumor, impaired sensorium, hemiplegia or paraplegia No [...] (no units) Date Value 04/30/2021 Negative Specific [place], Ur (no units) Date Value 04/30/2021 1.005 [...] mg tablet 50 mg daily at bedtime. Granger-3 Fatty Acids, FISH OIL, (FISH OIL) 360-1,200 [...] (FLONASE) 50 mcg/actuation nasal spray Use 1 [place] in each nostril once daily. No current [...] 12, 2021 TIME: 2:25 PM PAGER/CONTACT #: [facility] PRE-OP NOTE Milan Camarillo is a 71 year old male. Pre-op Date: December 12, 2021 Date of Procedure: 12/21/2021 Does the patient have an active COVID-19 test in [facility]? Yes, will complete self- check COVID [...] COVID testing, and urine culture. Marcy Donahue APRN.PICU NURSE documented in this encounterLuther[facility] Hospital06-22-2022 NotePatient Outreach (UROLMN) MILAN CAMARILLO ([id number]) 1950 M Date Time Provider Department 12/12/21 [...] Date Reviewed: 12/12/2021 Reviewed by: Marcy Donahue APRN.PICU NURSE - Fully Assessed Visit Diagnosis:Screening for genitourinary condition [Z13.89] Order(s):URINALYSIS, REFLEX MICROSCOPIC [[id number]] Order #: [id number] URINALYSIS, REFLEX MICROSCOPIC [[id number]] Order #: [id number]. #:[id number] Prescriptions as of 12/17/2021 - aspirin 81 [...] tablet 50 mg daily at bedtime. - Granger-3 Fatty Acids, FISH OIL, (FISH OIL) 360-1,200 [...] (FLONASE) 50 mcg/actuation nasal spray Use 1 [place] in each nostril once daily. Problem List [...] Obesity (BMI 30.0-34.9) [E66.9] Encounter Status:Closed by EP[employer], PRODUSER on 12/17/21[facility] 10-25-2021 Miscellaneous Notes* Telephone Encounter - Rubén [...] in. Advised that he will go to [facility], which is west of [facility] and has its own parking garage. [...] ok to take that? documented in this encounterLuther[facility] Hospital05-03-2022 Instructions* Patient Instructions* Suri Whatley APRN.PICU NURSE - 10/23/2021 12:05 PM EDT PATIENT PREOPERATIVE INSTRUCTIONS Jesus Ram, * has scheduled you for your procedure at this surgery center: [facility] [place] Scheduling Office: [phone] --[address] [place] [address]. Please read below carefully for your personalized [...] Procedures: - YOU MUST HAVE A RESPONSIBLE HOURLY MANAGER TAKE YOU HOME. A DETAIL SERGEANT OR BRUSH HEAD MAKER CANNOT BE MADE A RESPONSIBLE HOURLY MANAGER. - We recommend that a responsible person [...] call the Friday before. Your surgeon s crew scheduler will tell you what time to call the office. - If you have not reached the departmental crew scheduler by 5 P.M., call [phone] after 5 P.M. the day before your surgery. Please be aware that emergency situations arise, which may delay or change your surgical time. If this happens, we will notify you as soon as possible and regret any inconvenience. If you already have an Advance Directive, please fax a copy to [phone] or email to for it to be [...] your chart that day. documented in this encounterLuther[facility] Hospital05-03-2022 History and physical note * Suri Whatley [...] fibrillation, CAD, chest pain, CHF, DVT/PE, recent DE and murmur/valvular heart disease. GI: Positive for: [...] 50 mg daily at bedtime. Taking Yes Granger-3 Fatty Acids, FISH OIL, (FISH OIL) 360-1,200 [...] (FLONASE) 50 mcg/actuation nasal spray Use 1 [place] in each nostril once daily. 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 Assessment DM (diabetes mellitus) ([facility]) Assessment: managed with oral med reports FBG 90's Monitored by PCP HTN (hypertension) Assessment: Managed with med Date: BP: 10/23/2021 142/65 Stable. Swelling Assessment: managed with Lasix daily Stable. COPD (chronic obstructive pulmonary disease) ([facility]) Assessment: managed with inhaler and supplemental [...] of difficult airway No abnormal airway history [id number] Score: Age: 65-74 Sex: Male Hypertension history: [...] 11:50 AM PAGER/CONTACT #: documented in this encounterLutheran Hospital04-17-2022 NoteHNO ID: [id number] Author: Jesus Ram MD Service: ? Author Type: Physician Type: Progress Notes Filed: 10/07/2021 8:29 PM Note Text: [facility] PHYSICIAN INTERPRETATION: Urodynamics [...] contractility; Incomplete bladder emptying; Large bladder capacity KRISTIN KruseLakeHealth Beachwood [facility]04-13-2022 NoteHNO ID: [id number] Author: Kamilah Limon RN Service: ? Author [...] Care Visit completed when applicable. Kamilah Limon RNUniversity Hospitals Health System04-13-2022 NoteHNO ID: [id number] Author: Jesus Ram MD Service: ? Author [...] Medications:Cipro 500 mg x 1 Jesus Ram [facility]04-13-2022 History of Present illness Narrative* [...] applicable. Kamilah Limon RN documented in this encounterLutheran Hospital04-13-2022 Nurse Note* Thao Singer RN - 10/03/2021 3:18 PM EDT [facility] URODYNAMICS LAB URODYNAMIC [...] given. 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 documented in this encounterLutheran Hospital04-13-2022 Procedure note* Jesus Ram MD - 10/03/2021 [...] 1 Jesus Ram MD documented in this encounterLutheran Hospital11-08-2021 NoteHNO ID: [id number] Author: Jesus Ram MD Service: ? Author Type: Physician Type: Progress Notes Filed: 04/30/2021 4:53 PM Note Text: [facility] NEW PATIENT HISTORY AND PHYSICAL EXAM PATIENT INFO: Milan Camarillo 70 year old REFERRING M.D.: Rasheed Hanks [address] [facility] [address] HISTORY: Milan Camarillo is a 70 year [...] UDS. Milan Camarillo had recent MRI at [facility] in [place] for renal mass. Milan Camarillo reports lots [...] (COZAAR) 100 mg tablet 50 mg. - Granger-3 Fatty Acids, FISH OIL, (FISH OIL) 360-1,200 [...] (FLONASE) 50 mcg/actuation nasal spray Use 1 [place] in each nostril once daily. No current facility-administered medications for this visit. MEDICATION ALLERGIES: ALLERGIES Allergen Reactions - Glucosamine Anaphylaxis, Unknown - Iv Dye [Iodinated C* Hives - Shellfish Containin* Hives - Niacin Hives, Rash PAST MEDICAL HISTORY Diagnosis Date - Arthritis - Chronic back pain - COPD (chronic obstructive pulmonary disease) ([facility]) - DM (diabetes mellitus) ([facility]) - HTN (hypertension) - Hypercholesteremia - Panic [...] diarrhea since rec (more content not included)... [facility]11-08-2021 NotePatient Outreach (ROSALIA) MILAN CAMARILLO ([id number]) 1950 M Date Time Provider Department 04/30/21 [...] [Z13.89] Order(s):URINALYSIS, DIPSTICK ONLY [SQUA] Order #: [id number]. #:[id number] Prescriptions as of 05/03/2021 - metformin HCl [...] (COZAAR) 100 mg tablet 50 mg. - Granger-3 Fatty Acids, FISH OIL, (FISH OIL) 360-1,200 [...] (FLONASE) 50 mcg/actuation nasal spray Use 1 [place] in each nostril once daily. Problem List As Of Date 04/30/2021 Noted Resolved Prostate cancer (HCC) [C61] 05/23/2016 Renal mass [N28.89] 03/23/2021 DM (diabetes mellitus) (HCC) [E11.9] Incomplete bladder emptying [R33.9] 04/30/2021 Recurrent urinary tract infection [N39.0] 04/30/2021 Personal history of prostate cancer [Z85.46] 04/30/2021 Chronic back pain [M54.9, G89.29] 04/30/2021 Encounter Status:Closed by [employer], PRODUSER on 05/03/21[facility] 04-17-2021 NoteHNO ID: [id number] Author: Rasheed Hanks MD Service: ? Author Type: Physician Type: Progress Notes Filed: 04/19/2021 1:48 PM Note Text: VIRTUAL VISIT PROGRESS NOTE This is a virtual visit using Mile[employer] video visit. It required patient-provider interaction for [...] (COZAAR) 100 mg tablet 50 mg. - Granger-3 Fatty Acids, FISH OIL, (FISH OIL) 360-1,200 [...] (FLONASE) 50 mcg/actuation nasal spray Use 1 [place] in each nostril once daily. No current [...] if any reasonable optio (more content not included)...[facility]10-22-2021 NoteHNO ID: [id number] Author: RT Yuliet(R) Service: ? Author Type: [...] Rabia DATE: April 13, 2021 TIME: 9:38 [facility]10-01-2021 NotePatient Outreach (UROLMN) RABIAMILAN ([id number]) 1950 M Date Time Provider Department 03/23/21 [...] [Z13.89] Order(s):URINALYSIS, DIPSTICK ONLY [SQUA] Order #: [id number]. #:[id number] Prescriptions as of 03/26/2021 - diphenhydrAMINE (BENADRYL) [...] (COZAAR) 100 mg tablet 50 mg. - Granger-3 Fatty Acids, FISH OIL, (FISH OIL) 360-1,200 [...] (FLONASE) 50 mcg/actuation nasal spray Use 1 [place] in each nostril once daily. Problem List As Of Date 03/23/2021 Noted Resolved Prostate cancer (HCC) [C61] 05/23/2016 Renal mass [N28.89] 03/23/2021 Encounter Status:Closed by [employer] on 03/26/21[facility] 03-23-2021 NoteHNO ID: [id number] Author: Antonette Segura MD Service: ? Author Type: Resident Type: Progress Notes Filed: 03/23/2021 12:17 PM Note Text: [facility] NEW PATIENT HISTORY AND PHYSICAL EXAM PATIENT INFO: Milan Avery Rabia REFERRING M.D.: SELF PCP: Catracho Jiménez MD [...] No results found for: CREAT URINALYSIS: Specific [place], Ur Date Value Ref Range Status 03/23/2021 [...] (COZAAR) 100 mg tablet 50 mg. - Granger-3 Fatty Acids, FISH OIL, (FISH OIL) 360-1,200 [...] (FLONASE) 50 mcg/actuation nasal spray Use 1 [place] in each nostril once daily. - cetirizine [...] GENITOURINARY: See HPI. MUSCULOSKELETA (more content not included)...[facility] Evaluation + Plan note Future Appointments Appointment Date:10/07/2022 09:00:00 AM Scheduled Provider:Raegan March MD Location:[facility] Appointment Type: Open Diagnostic Tests Pending * Basic Metabolic Panel 08/26/22 * PSA Screen, Total 08/26/22 Future Scheduled Tests Radiology* XR Spine Lumbosacral Minimum 4 Views [facility] App[facility]ments Appointment Date:12/09/2022 09:30:00 AM Scheduled Provider:Jerem[facility] Office Visit Appointment Date:12/30/2022 07:00:00 AM Scheduled Provider:Raegan March MD Location:[facility] Appointment Type:FM Open Appointment Date:11/26/2023 08:00:00 AM Scheduled Provider: Location:[facility] Appointment Type: Medicare Wellness Subsequent Diagnostic Tests Pending * HCV Antibody RFX to Quant PCR 11/25/22 [facility] Future Appointments Appointment Date:12/30/2022 07:00:00 AM Scheduled Provider:Raegan March MD Location:[facility]ue Appointment Type: Open Appointment Date:03/17/2023 08:45:00 AM Scheduled Provider:Jeremy KELLEY MD [facility] Type:URO Office Visit Appointment Date:11/26/2023 08:00:00 AM Scheduled Provider: Location:[facility] Appointment Type: Medicare Wellness Subsequent [facility] evaluation + Plan note Future Appointments Appointment Date:09/15/2023 09:15:00 AM Scheduled Provider:Jeremy KELLEY MD [facility] Type:URO Office Visit Appointment Date:11/26/2023 08:00:00 AM Scheduled Provider: Location:[facility] Appointment Type: Medicare Wellness Subsequent Diagnostic Tests Pending * PSA Total 03/17/23 [facility] evaluation + Plan note Future Appointments Appointment Date:09/15/2023 09:15:00 AM Scheduled Provider:Jeremy KELLEY MD [facility] Type:URO Office Visit Appointment Date:11/26/2023 08:00:00 AM Scheduled Provider: Location:[facility]ue Appointment Type: Medicare Wellness Subsequent [facility] Future Appointments Appointment Date:09/15/2023 09:15:00 AM Scheduled Provider:Jeremy KELLEY MD [facility] Appoint[facility] Type:URO Office Visit Appointment Date:11/26/2023 08:00:00 AM Scheduled [facility] Medicare Wellness [facility] Future Appointments Appointment Date:09/15/2023 09:15:00 AM Scheduled Provider:Jeremy KELLEY MD [facility] Type:URO Office Visit Appointment Date:11/26/2023 08:00:00 AM Scheduled Provider: Location[facility] Appointment Type: Medicare Wellness Subsequent Diagnostic Tests Pending * Urine Culture 06/25/23 [facility] Future Appointments Appointment Date:09/15/2023 09:15:00 AM Scheduled Provider:Jeremy KELLEY MD Location:[facility] Appointment Type:URO Office Visit Appointment Date:11/26/2023 08:00:00 AM Scheduled Provider: Location:[facility] Appointment Type:FM Medicare Wellness Subsequent Diagnostic Tests Pending * Urine Culture 07/10/23 [facility] Future Appointments Appointment Date:11/25/2023 09:30:00 AM Scheduled Provider: Location:[facility] Appointment Type:FM Medicare Wellness Subsequent Appointment Date:01/23/2024 09:45:00 AM Scheduled Provider:Jeremy KELLYE MD [facility] Type:URO Office Visit Diagnostic Tests Pending * PSA Total 11/22/23 [facility] evaluation + Plan note Future Appointments Appointment Date:12/16/2023 10:30:00 AM Scheduled Provider:Raegan March MD [facility] Type:FM Open Appointment Date:01/23/2024 09:45:00 AM Scheduled Provider:Jeremy KELLEY MD [facility] Type:URO Office Visit Appointment Date:11/25/2024 09:30:00 AM Scheduled Provider: Location:[facility] Appointment Type:FM Medicare Wellness Subsequent [facility] Future Appointments Appointment Date:04/15/2024 10:15:00 AM Scheduled Provider:Raegan March [facility] Type:FM Open Appointment Date:08/02/2024 10:15:00 AM Scheduled Provider:Jeremy KELLEY MD [facility] App[facility] Type:URO Office Visit Appointment Date:11/25/2024 09:30:00 AM Scheduled Provider: Location:[facility] Appointment Type:FM Medicare Wellness Subsequent [facility] evaluation + Plan note Future Appointments Appointment Date:08/02/2024 10:15:00 AM Scheduled Provider:Jeremy KELLEY MD [facility] App[facility] Type:URO Office Visit Appointment Date:10/14/2024 10:00:00 AM Scheduled Provider:Raegan March MD [facility] Type: Open Appointment Date:11/25/2024 09:30:00 AM Scheduled Provider: Location:[facility] Appointment Type: Medicare Wellness [facility] evaluation + Plan note Future Appointments Appointment Date:07/01/2024 10:00:00 AM Scheduled Provider:Raegan March MD [facility] Type: Open Appointment Date:08/02/2024 10:15:00 AM Scheduled Provider:Jeremy KELLEY MD [facility] App[facility] Type:URO Office Visit Appointment Date:10/14/2024 10:00:00 AM Scheduled Provider:Raegan March MD [facility] Type: Open Appointment Date:11/25/2024 09:30:00 AM Scheduled Provider: Location:[facility] Appointment Type: Medicare Wellness [facility] evaluation + Plan note Future Appointments Appointment Date:10/14/2024 10:00:00 AM Scheduled Provider:Raegan March MD [facility] Type:FM Open Appointment Date:11/25/2024 09:30:00 AM Scheduled Provider: [facility] Type: Medicare Wellness Subsequent [facility] evaluation + Plan note Future Appointments Appointment Date:10/14/2024 10:00:00 AM Scheduled Provider:Raegan March MD [facility] Type:FM Open Appointment Date:11/25/2024 09:30:00 AM Scheduled Provider: Location:[facility] Jaime Appointment Type: Medicare Wellness Subsequent Appointment Date:02/14/2025 11:15:00 AM Scheduled Provider:Jeremy KELLEY MD Location:[facility] Jaime Appointment Type:URO Office Visit Future Scheduled Tests Laboratory* PSA Total 12/07/24 [facility] Jaime evaluation noteNo assessment information available [facility] Diagnosis Retention of urine- Primary Retention of urine, unspecified [facility] Incomplete bladder emptying- Primary Recurrent urinary tract infection Urinary tract infection, site not specified BPH with urinary obstruction Hypertrophy of prostate with urinary obstruction and other lower urinary tract symptoms (LUTS) [facility] Diagnosis Preop examination- Primary Preoperative examination, [...] tract symptoms (LUTS) [facility] Diagnosis BPH with obstruction/lower urinary tract symptoms- Primary Hypertrophy of prostate with urinary obstruction and other lower urinary tract symptoms (LUTS) Incomplete bladder emptying BPH with obstruction/lower urinary tract symptoms Hypertrophy of prostate with urinary obstruction and other lower urinary tract symptoms (LUTS) [facility] Diagnosis Pre-op exam- Primary Preoperative examination, unspecified BPH with obstruction/lower urinary tract symptoms Hypertrophy of prostate with urinary obstruction and other lower urinary tract symptoms (LUTS) Pre-op testing Preoperative examination, unspecified BPH with obstruction/lower urinary tract symptoms Hypertrophy of prostate with urinary obstruction and other lower urinary tract symptoms (LUTS) [facility] Diagnosis Screening for genitourinary condition Screening for other and unspecified genitourinary condition BPH with obstruction/lower urinary tract symptoms Hypertrophy of prostate with urinary obstruction and other lower urinary tract symptoms (LUTS) [facility]* Diagnosis Incomplete bladder emptying- Primary BPH with obstruction/lower urinary tract symptoms Hypertrophy of prostate with urinary obstruction and other lower urinary tract symptoms (LUTS) Recurrent urinary tract infection Urinary tract infection, site not specified documented in this encounter [facility] note* Diagnosis Other specified disorders of kidney and ureter documented in this encounter [facility] note* Diagnosis Onset Date Resolution Status COPD, severe acute Hypertension acute Hypoxia, sleep related acute MARQUITA (obstructive sleep apnea) acute Stroke acute [facility] Work Phone: Evaluation note* Diagnosis Arthritis of right hip- Primary [facility] Diagnosis Right hip pain- Primary Pain in joint, pelvic region and thigh Arthritis of right hip [facility]* Diagnosis Right hip pain- Primary Pain in joint, pelvic region and thigh Arthritis of right hip [facility]* Diagnosis Arthritis of right hip- Primary [facility] Diagnosis Pre-op examination- Primary Arthritis of right hip [facility]* Diagnosis Preop examination Unspecified pre-operative examination [facility] N[facility] - Reported* Type Description Date Medical History hyperlipidemia Medical History hypertension Medical History COPD Medical History restless leg syndrome Medical History restrictive pulmonary defect Surgical History appendectomy Surgical History lumbar fusion Hospitalization History see above Reesio Other Hospital course Narrative No data available for this section [facility] No data available for this section [facility] No data available for this section [facility] (narrative)* Outpatient Procedure (Routine) - Pending Review Specialty Diagnoses / Procedures Referred By Pete coffman Referred To [facility] Diagnoses Preop examination BPH with obstruction/lower urinary tract symptoms Type 2 diabetes mellitus without complication, without long-term current use of insulin (HCC) Hypertension, unspecified type Swelling Chronic obstructive pulmonary disease, unspecified COPD type (HCC) Hypercholesteremia On supplemental oxygen therapy Former smoker Obesity (BMI 30.0-34.9) Procedures ECG COMPLETE ECG ROUTINE ECG W/LEAST 12 LDS W/I&R Suri Whatley APRN.CNP [address] [place] [address] [address] [place] [address] Referral ID Status Reason Start Date Expiration Date Visits Requested Visits Authorized [id number] Pending Review Auto-Generat ed Referral 10/23/2021 10/23/2022 1 1 [facility] for referral (narrative)* Diagnostic Procedure Only (Routine) - Closed Specialty Diagnoses / Procedures Referred By Pete coffman Referred To Contact MR IMAGING Diagnoses Other specified disorders of kidney and ureter Procedures MRI KIDNEY WO/W IVCON MRI,ABDOMEN,W&WO Rasheed Cooper MD [address] [place] [id number] Mr Imaging [facility] Referral ID Status Reason Start Date Expiration Date Visits Re quested Visits Authorized [id number] Closed 04/13/2021 05/13/2021 1 1 [facility] for referral (narrative)* Consultation (Routine) - Pending Review Specialty Diagnoses / Procedures Referred By Pete coffman Referred To Contact Physical Therapy Diagnoses Arthritis of right hip Procedures IA OFFICE/OUTPATIENT NEW HIGH MDM 60 MINUTES Emma Menchaca NP [address] [facility] [address] [place] [address] Daryl Young, PT [address] [place] [address] Referral ID Status Reason Start Date Expiration Date Visits Requested Visits Authorized [id number] Pending Review Specialty Services Required 03/01/2024 08/28/2024 1 1 [facility] for visit Narrative* Diagnostic Procedure Only (Routine) - Closed Specialty Diagnoses / Procedures Referred By Pete t Referred To Contact Urology / UROLOGY Diagnoses cysto per staff message Procedures CYSTOSCOPY Jesus Ram MD [address] [facility] [place] [address] Jesus Ram MD [address] [facility] [place] [address] Referral ID Status Reason Start Date Expiration Date V isits Requested Visits Authorized [id number] Closed Financial Clearance Required - OON Payor Patient Cleared INN/SMCP Payor Auth Obtained 10/03/2021 11/02/2021 1 1 [facility] for visit Narrative* Diagnostic Procedure Only (Routine) - Closed Specialty Diagnoses / Procedures Referred By Pete t Referred To Contact MR IMAGING Diagnoses Other specified disorders of kidney and ureter Procedures MRI KIDNEY WO/W IVCON MRI,ABDOMEN,W&WO PALS Rasheed Hanks MD [address] [place] [address] Mr Imaging [place] [address] Referral ID Status Reason Start Date Expiration Date Visits Re quested Visits Authorized [id number] Closed 04/13/2021 05/13/2021 1 1 [facility] for visit Narrative* Consultation (Routine) - Authorized Specialty Diagnoses / Procedures Referred By Sauravac t Referred To Contact Physical Therapy Diagnoses Arthritis of right hip Procedures IA OFFICE/OUTPATIENT NEW HIGH MDM 60 MINUTES Emma Menchaca, [employer] [address] [place] [address] Daryl Young, PT [address] [place] [address] Referral ID Status Reason Start Date Expiration Date Visits Requested Visits Authorized [id number] Authorized Specialty Services Required 03/11/2024 04/10/2024 8 8 [facility] Healthcare Summary Purpose Family History No Family History Records Found Relationship Condition Age at Onset Recorded Date/T william Not Specified Heart disease Unknown Type 2 diabetes mellitus Unknown father History of heart surgery Unknown sister Epilepsy Unknown sister Malignant neoplasm of breast Unknown sister Heart disease Unknown Relationship Condition Age at Onset Recorded Date/T william Not Specified Heart disease Unknown Type 2 diabetes mellitus Unknown father History of heart surgery Unknown sister Epilepsy Unknown sister Malignant neoplasm of breast Unknown sister Heart disease Unknown father Hypertension Unknown Heart disease Unknown Not Specified Hypertension Unknown Unknown Relationship Condition Age at Onset Recorded Date/T william mother Heart disease Unknown Type 2 diabetes mellitus Unknown father History of heart surgery Unknown sister Epilepsy Unknown sister Malignant neoplasm of breast Unknown sister Heart disease Unknown father Hypertension Unknown Heart disease Unknown mother Hypertension Unknown Unknown Advance Directives No Advanced Directives Records Found Advance Directive Response Recorded Date/ Time Advance Directives No December 01 10:32am Documents on File Type Date Recorded Patient Honeycomb Decapper Expl anation Advance Directive(s) 10/09/2021 3:47 PM Documents on File Type Date Recorded Patient Honeycomb Decapper Expl anation Advance Directive(s) 10/09/2021 3:47 PM Documents on File Type Date Recorded Patient Honeycomb Decapper Expl anation Advance Directive(s) 11/21/2021 9:16 AM Advance Directive(s) 10/09/2021 3:47 PM Documents on File Type Date Recorded Patient Honeycomb Decapper Expl anation Advance Directive(s) 01/01/2022 3:16 PM Advance Directive(s) 11/21/2021 9:16 AM Advance Directive(s) 10/09/2021 3:47 PM Documents on File Type Date Recorded Patient Honeycomb Decapper Expl anation Advance Directive(s) 01/01/2022 3:16 PM Advance Directive(s) 11/21/2021 9:16 AM Advance Directive(s) 10/09/2021 3:47 PM Chief Complaint and Reason for Visit Chief Complaint Chest Pain, Abnormal Stress Chief Complaint Obstructive sleep ap radha MARQUITA MARQUITA/COPD/TITRATION Chief Complaint j43.2 j43.2 Reason for Visit COPD, severe Hypertension Hypoxia, sleep related MARQUITA (obstructive sleep apnea) Stroke Medications Administered Section Inactive Administered Medications - [...] section and content) DATE CREATED AUTHOR 12/11/2017 [facility] DATE CREATED AUTHOR AUTHOR'S ORGANIZ ATION 12/12/2017 [facility] DATE CREATED AUTHOR AUTHOR'S ORGANIZ ATION 01/14/2022 [facility] DATE CREATED AUTHOR AUTHOR'S ORGANIZ ATION 09/14/2022 [facility] DATE CREATED AUTHOR AUTHOR'S ORGANIZ ATION 11/30/2023 [facility] DATE CREATED AUTHOR AUTHOR'S ORGANIZ ATION 02/14/2024 [facility] DATE CREATED AUTHOR AUTHOR'S ORGANIZ ATION 08/03/2024 [facility] DATE CREATED AUTHOR AUTHOR'S ORGANIZ ATION 08/18/2024 [facility] DATE CREATED AUTHOR AUTHOR'S ORGANIZ ATION 08/28/2024 [facility] DATE CREATED AUTHOR AUTHOR'S ORGANIZ ATION 08/29/2024 [facility] Goals (unrecognized section and content) Goals may [...] this section No data available for this sectionGoals may be documented in an alternate section No data available for this section No data available for this section No data available for this section No data available for this sectionGoals may be documented in an alternate section No data available for this [...] or prosecute any alcohol or drug abuse patient.[facility] the event this information is protected by the Federal Confidentiality of Alcohol and Drug Abuse Patient Records regulations: The Federal rules restrict any use of the information to criminally investigate or prosecute any alcohol or drug abuse patient.[facility] HospitalIn the event this information is protected by the Federal Confidentiality of Alcohol and Drug Abuse Patient Records regulations: The Federal rules restrict any use of the information to criminally investigate or prosecute any alcohol or drug abuse patient.[facility] Hospital[facility] the event this information is protected by the Federal Confidentiality of Alcohol and Drug Abuse Patient Records regulations: The Federal rules restrict any use of the information to criminally investigate or prosecute any alcohol or drug abuse patient.[facility] HospitalIn the event this information is protected by the Federal Confidentiality of Alcohol and Drug Abuse Patient Records regulations: The Federal rules restrict any use of the information to criminally investigate or prosecute any alcohol or drug abuse patient.[facility] HospitalIn the event this information is protected by the Federal Confidentiality of Alcohol and Drug Abuse Patient Records regulations: The Federal rules restrict any use of the information to criminally investigate or prosecute any alcohol or drug abuse patient.[facility] HospitalIn the event this information is protected by the Federal Confidentiality of Alcohol and Drug Abuse Patient Records regulations: The Federal rules restrict any use of the information to criminally investigate or prosecute any alcohol or drug abuse patient.[facility] HospitalIn the event this information is protected by the Federal Confidentiality of Alcohol and Drug Abuse Patient Records regulations: The Federal rules restrict any use of the information to criminally investigate or prosecute any alcohol or drug abuse patient.[facility] HospitalIn the event this information is protected by the Federal Confidentiality of Alcohol and Drug Abuse Patient Records regulations: The Federal rules restrict any use of the information to criminally investigate or prosecute any alcohol or drug abuse patient.[facility] HospitalIn the event this information is protected by the Federal Confidentiality of Alcohol and Drug Abuse Patient Records regulations: The Federal rules restrict any use of the information to criminally investigate or prosecute any alcohol or drug abuse patient.[facility] HospitalIn the event this information is protected by the Federal Confidentiality of Alcohol and Drug Abuse Patient Records regulations: The Federal rules restrict any use of the information to criminally investigate or prosecute any alcohol or drug abuse patient.[facility] HospitalIn the event this information is protected by the Federal Confidentiality of Alcohol and Drug Abuse Patient Records regulations: The Federal rules restrict any use of the information to criminally investigate or prosecute any alcohol or drug abuse patient.[facility] Reason for Visit (unrecogniz ed section and content) Reason Comments Follow Up Specialty Diagnoses / Procedures Referred By Pete t Referred To Contact Urology / UROLOGY Diagnoses uds per staff message Procedures COMPLX CYSTOMETRO W/VOID PRESS&URETHRAL PROFILE COMPLEX UROFLOMETRY EMG STDS ANAL/URTL SPHNCTR OTH/THN NDL VOID PRESSURE STUDIES INTRAABDOMINAL URODYNAMICS MAIN Self [employer] [address] [place] [address] Referral ID Status Reason Start Date Expiration Date V isits Requested Visits Authorized [id number] Closed Financial Clearance Required - OON Payor Patient Cleared INN/SMCP Payor Auth Obtained 10/03/2021 11/02/2021 1 1 Specialty Diagnoses / Procedures Referred By Pete t Referred To Contact ANESTHESIOLOGY Diagnoses BPH with obstruction/lower urinary tract symptoms Procedures REFER TO PACC - PRE ANESTHESIA CONSULTATION CLINIC OFFICE/OUTPATIENT [facility] 60-74 MINUTES Jesus Ram MD [address] [place] [address] [place] [address] Referral ID Status Reason Start Date Expiration Date V isits Requested Visits Authorized [id number] Closed PCP Requested Referral 10/23/2021 11/22/2021 1 1 Reason Comments Patient Question Reason Comments Pre-Op Exam Reason Comments Surgical Followup Specialty Diagnoses / Procedures Referred By Pete coffman Referred To Contact Urology / UROLOGY Diagnoses ER follow up and removal of cath Procedures EST UROL Jesus Ram MD [address] [place] [address] Jesus Ram MD [address] [place] [address] Referral ID Status Reason Start Date Expiration Date Visits Requested Visits Authorized [id number] Waiting for Response Financial Clearance Required - OON Payor OON Notification Letter Patient Cleared - Admin/Slab Grinder/ Director advise to proceed 2 04/09/2022 1 1 Reason Onset Date Comments surgery 03/08/2024 Reason Comments Pain Reason Comments Pain Reason Comments Pre-op Exam Care Teams (unrecognized sec tion and content) Medical Records Administrator Relationship Specialty Start Date End Date Catracho Jiménez MD [address] [place] [address] PCP - General Family Practice 11/14/20 Jeremy Kelley MD [address] [place] [address] Urology 04/19/21 Medical Records Administrator Relationship Specialty Start Date End Date Catracho Jiménez MD [address] [place] [address] PCP - General Family Practice 11/14/20 Jeremy Kelley MD [address] [place] [address] Urology 04/19/21 Medical Records Administrator Relationship Specialty Start Date End Date Catracho Jiménez MD [address] [place] [address] PCP - General Family Practice 11/14/20 Jeremy Kelley MD [address] [place] [address] Urology 04/19/21 Medical Records Administrator Relationship Specialty Start Date End Date Catracho Jiménez MD [address] [place] [address] PCP - General Family Practice 11/14/20 Jeremy Kelley MD [address] [place] [address] Urology 04/19/21 Medical Records Administrator Relationship Specialty Start Date End Date Catracho Jiménez MD [address] [place] [facility] [place] [address] PCP - General Family Practice 11/14/20 Jeremy Kelley MD [address] [place] [address] Urology 04/19/21 Medical Records Administrator Relationship Specialty Start Date End Date Catracho Jiménez MD [address] [place] [address] PCP - General Family Practice 11/14/20 Jeremy Kelley MD [address] [place] [address] Urology 04/19/21 Medical Records Administrator Relationship Specialty Start Date End Date Catracho Jiménez MD [address] [facility] [place] [address] PCP - General Family Practice 11/14/20 Jeremy Kelley MD [address] [place] [address] Urology 04/19/21 Medical Records Administrator Relationship Specialty Start Date End Date Catracho Jiménez MD [address] [place] [address] PCP - General Family Practice 11/14/20 Jeremy Kelley MD [address] [place] [address] Urology 04/19/21 Medical Records Administrator Relationship Specialty Start Date End Date Catracho Jiménez MD [address] [place] [address] PCP - General Family Practice 11/14/20 Jeremy Kelley MD [address] [place] [address] Urology 04/19/21 Medical Records Administrator Relationship Specialty Start Date End Date Catracho Jiménez MD [address] [place] [address] PCP - General Family Medicine 11/14/20 Team Status: Active Member Role Status Dates Raegan March MD Primary Care Provider Active Team Status: Inactive Member Role Status Dates Raegan March MD Primary Care Provider Active Start: September 01, 2023 End: September 01, 2023 Khadijah Grove MD Attending Provider Active S tart: September 01, 2023 End: September 01, 2023 Team Status: Active Member Role Status Dates Raegan March MD Primary Care Provider Active Start: September 02, 2023 Khadijah Grove MD Attending Provider, Other Provider Active Start: September 02, 2023 Team Status: Inactive Member Role Status Dates Raegan March MD Primary Care Provider Active Start: September 15, 2023 End: September 15, 2023 Khadijah Grove MD Attending Provider Active S tart: September 15, 2023 End: September 15, 2023 Team Status: Inactive Member Role Status Dates Raegan March MD Primary Care Provider Active Start: December 16, 2023 End: December 16, 2023 Myranda Soni NP Attending Provider Active Start: December 16, 2023 End: December 16, 2023 Team Status: Inactive Member Role Status Dates Raegan March MD Primary Care Provider Active Start: February 12, 2024 End: February 12, 2024 Katja SHARPE DO Attending Provider Active Start: February 12, 2024 End: February 12, 2024 Team Status: Active Member Role Status Dates Raegan March MD Primary Care Provider Active Start: February 12, 2024 Katja Reyes [facility] DO Other Provider Active St art: February 12, 2024 Sim Her MD Attending Provider Active Start: February 12, 2024 Medical Records Administrator Relationship Specialty Start Date End Date Raegan March MD PCP - General Family Medicine 03/05/23 Medical Records Administrator Relationship Specialty Start Date End Date Raegan March MD PCP - General Family Medicine 03/05/23 Medical Records Administrator Relationship Specialty Start Date End Date Raegan March MD PCP - General Family Medicine 03/05/23 Medical Records Administrator Relationship Specialty Start Date End Date Raegan March MD PCP - General Family Medicine 03/05/23 Medical Records Administrator Relationship Specialty Start Date End Date Raegan March MD PCP - General Family Medicine 03/05/23 Medical Records Administrator Relationship Specialty Start Date End Date Raegan March MD PCP - General Family Medicine 03/05/23 Medical Records Administrator Relationship Specialty Start Date End Date Raegan March MD PCP - General Family Medicine 03/05/23 Medical Records Administrator Relationship Specialty Start Date End Date Raegan March [place] [facility] [place] [address] PCP - General Family Medicine 03/05/23 Medical Records Administrator Relationship Specialty Start Date End Date Raegan March MD [address] [place] [address] PCP - [facility] 03/05/23 Medical Records Administrator Relationship Specialty Start Date End Date Raegan March MD [address] [place] [address] PCP - [facility] 03/05/23 Medical Records Administrator Relationship Specialty Start Date End Date Raegan March MD [address] [place] [address] PCP - [facility] 03/05/23 FOR RECORDS PERTAINING TO PATIENTS WHO ARE [...] BE BASED ON THE PRIMARY CLINICAL RECORDS. [facility]. provides no warranty or guarantee of the accuracy or completeness of information in this document.
== END 2024-08-30 07:55 | disposition home or self-care (01) ==
LOC: CT 07:57
PROVIDERS: PCP Family Medicine; Visit Provider Internal Medicine
DX: Z87.891 Personal history of nicotine dependence (principal); Z12.2 Encounter for screening for malignant neoplasm of respiratory organs
CPT/HCPCS: 71271